=== PATIENT | female | born 1945 | race Caucasian/White ===

== ENCOUNTER 2023-05-17 16:20 | Outpatient (OUT) | payer MEDICARE, OTHER, SELFPAY ==
[2023-05-17 16:50] LABS: Anion Gap 11.4; BUN Creatinine Ratio 19.8; Carbon Dioxide 27.3 mmol/L (21.0-32.0); Chloride 107 mmol/L (98-107); Estimated GFR (African America >60 (>=60); Estimated GFR (Non-African Ame >60 (>=60); Glucose 95 mg/dL (74-106); Potassium 3.7 mmol/L (3.5-5.1); Sodium 142 mmol/L (136-145)
== END 2023-05-17 16:21 | disposition home or self-care (01) ==
PROVIDERS: PCP Internal Medicine; Visit Provider Internal Medicine
DX: M81.0 Age-related osteoporosis without current pathological fracture (principal)
CPT/HCPCS: 36415; 80048; 82306

== ENCOUNTER 2023-06-22 11:14 | Outpatient (OUT) | payer MEDICARE, OTHER, SELFPAY ==
[2023-06-22 13:02] LABS: Thyroid Stimulating Hormone 2.286 uIU/mL (0.358-3.740)
== END 2023-06-22 11:15 | disposition home or self-care (01) ==
LOC: LAB 11:17
PROVIDERS: PCP Internal Medicine; Visit Provider Internal Medicine
DX: E06.3 Autoimmune thyroiditis (principal)
CPT/HCPCS: 36415; 84443

== ENCOUNTER 2023-06-24 07:17 | Outpatient (RCR) | payer MEDICARE, OTHER, SELFPAY ==
[2023-06-24] MEDS: DENOSUMAB 60 MG/ML SYRINGE SQ (13:16)
== END 2023-06-26 23:59 | disposition home or self-care (01) ==
LOC: INF 07:17
PROVIDERS: PCP Internal Medicine; Visit Provider Internal Medicine
DX: M81.0 Age-related osteoporosis without current pathological fracture (principal)
CPT/HCPCS: 96372; J0897

== ENCOUNTER 2024-01-31 11:42 | Outpatient (OUT) | payer MEDICARE, OTHER, SELFPAY ==
[2024-01-31 13:27] LABS: Anion Gap 14.4; BUN Creatinine Ratio 32.5; Calcium 9.9 mg/dL (8.5-10.1); Chloride 108 mmol/L (98-107); Estimated GFR (African America >60 (>=60); Estimated GFR (Non-African Ame >60 (>=60); Glucose 85 mg/dL (74-106); Potassium 4.4 mmol/L (3.5-5.1); Sodium 143 mmol/L (136-145)
== END 2024-01-31 11:43 | disposition home or self-care (01) ==
LOC: LAB 11:44
PROVIDERS: PCP Internal Medicine; Visit Provider Internal Medicine
DX: M81.0 Age-related osteoporosis without current pathological fracture (principal)
CPT/HCPCS: 36415; 80048; 82306

== ENCOUNTER 2024-02-03 07:33 | Outpatient (RCR) | payer MEDICARE, OTHER, SELFPAY ==
[2024-02-03 14:45] VITALS: BP 163/68; PULSE 65; TEMP 36.4; O2SAT 96
[2024-02-03] MEDS: DENOSUMAB 60 MG/ML SYRINGE SUBQ (14:55)
--- NOTE | 2024-02-03 15:04 | PC.NURSE ---
Pt came in for Prolia injection, vitals obtained and stable. She tolerated injection well and denies any issues or concerns. She was discharged home via wheelchair.
== END 2024-02-25 23:59 | disposition home or self-care (01) ==
LOC: INF 07:33
PROVIDERS: PCP Internal Medicine; Visit Provider Internal Medicine
DX: M81.0 Age-related osteoporosis without current pathological fracture (principal)
CPT/HCPCS: 96372; J0897

== ENCOUNTER 2024-03-31 10:30 | Outpatient (OUT) | payer MEDICARE, OTHER, SELFPAY ==
--- OUTSIDE RECORDS SUMMARY | 2024-03-31 10:43 | XMS_ITS | CCD ---
Author Organization [facility] Care Team Providers Care Hand Alterations Tailor Name Role Phone LEIF, RENATA Unavailable Unavailable CHUCHO SARAVIA E Unavailable Unavailable LEIF, RENATA Unavailable Unavailable LEIF, RENATA Unavailable Unavailable CIRA BENDER Unavailable Unavailable CHUCHO SARAVIA Unavailable Unavailable Barry Valenzuela Unavailable Benigno Kennedy Unavailable DO Chucho Saravia Primary Care Provider [phone] DO Chucho Saravia Referring Provider [phone] Self, Referral Attending Provider Unavailable DO Chucho Saravia Primary Care Provider DO Chucho Saravia Referring Provider Self, Referral Attending Provider Unavailable MD Benigno Kennedy Attending Provider [phone] DO Chucho Saravia Primary Care Provider MD Barry Valenzuela Attending Provider Chucho Saravia Unavailable Radha Kennedy Unavailable REQUEST, NONE LISTED Admitting Unavaila ble REQUEST, DR LYN LISTED Attending Unavaila ble BALL, DR JACOBS Primary Care Unavailable REQUEST, DR LYN LISTED Consulting Unavaila ble BALL, DR JACOBS Admitting Unavailable BALL, DR JACOBS Attending Unavailable BALL, DR JACOBS Primary Care Unavailable BALL, DR JACOBS Consulting Unavailable BALL, DR JACOBS Admitting Unavailable BALL, DR JACOBS Attending Unavailable BALL, DR JACOBS Primary Care Unavailable BALL, DR JACOBS Consulting Unavailable BALL, DR JACOBS Admitting Unavailable BALL, DR JACOBS Attending Unavailable BALL, DR JACOBS Primary Care Unavailable BALL, DR JACOBS Consulting Unavailable BALL, DR JACOBS Admitting Unavailable BALL, DR JACOBS Attending Unavailable BALL, DR JACOBS Primary Care Unavailable BALL, DR JACOBS Consulting Unavailable BALL, DR JACOBS Primary Care Unavailable MILLER BASHIR Admitting Unavailable MILLER BASHIR Attending Unavailable DORIE MOORE Consulting Unavailable BALL, DR JACOBS Admitting Unavailable BALL, DR JACOBS Attending Unavailable BALL, DR JACOBS Primary Care Unavailable BALL, DR JACOBS Admitting Unavailable BALL, DR JACOBS Attending Unavailable BALL, DR JACOBS Primary Care Unavailable BALL, DR JACOBS Consulting Unavailable Coy Cassidy II Unavailable Olexa, Barry Unavailable DO Chucho Saravia Primary Care Provider MD Coy Cassidy II Attending Provider MD Barry Patel Attending Provider DO Chucho Saravia Primary Care Provider DO Chucho Saravia Primary Care Provider MD Barry Patel Attending Provider DO Chucho Saravia Referring Provider Self, Referral Attending Provider Unavailable DO Chucho Saravia Primary Care Provider MD Barry Patel Attending Provider DO Chucho Saravia Primary Care Provider MD Coy Cassidy II Attending Provider Olexa, Barry Admitting Unavailable Olexa, Barry Attending Unavailable Manjit, Chucho Primary Care Unavailable Olexa, Barry Admitting Unavailable Olexa, Barry Attending Unavailable Manjit, Chucho Primary Care Unavailable Olexa, Barry Admitting Unavailable Olexa, Barry Attending Unavailable Manjit, Chucho Primary Care Unavailable Olexa, Barry Admitting Unavailable Olexa, Barry Attending Unavailable Manjit, Chucho Primary Care Unavailable Olexa, Barry Admitting Unavailable Olexa, Barry Attending Unavailable Manjit, Chucho Primary Care Unavailable Ball, Chucho Primary Care Unavailable Olexa, Barry Admitting Unavailable Olexa, Barry Attending Unavailable Manjit, Chucho Primary Care Unavailable Olexa, Barry Admitting Unavailable Olexa, Barry Attending Unavailable Olexa, Barry Admitting Unavailable Olexa, Barry Attending Unavailable Manjit, Chucho Primary Care Unavailable Self, Referral Admitting Unavailable Self, Referral Attending Unavailable Manjit, Chucho Referring Unavailable Manjit, Chucho Primary Care Unavailable Olexa, Barry Attending Unavailable Olexa, Barry Admitting Unavailable Ball, Chucho Primary Care Unavailable Coy Cassidy II Attending Unavailabl e Eren HERNANDEZ, Coy Mcbride Admitting Unavailabl e Chucho Saravia Primary Care Unavailable Coy Cassidy II Admitting Unavailabl e Erne HERNANDEZCoy Attending Unavailabl e Chucho Saravia Primary Care Unavailable DO Chucho Saravia Primary Care Provider MD Coy Cassidy II Attending Provider [phone] AMISHA MUNOZ Attending Unavailable AMISHA MUNOZ Attending Unavailable ESTHER PALMER Attending Unavailable AMISHA MUNOZ Attending Unavailable Allergies Allergy Classification Reported Allergen(s) Allergy Type Date of Onset Reaction(s) Facility (20 sources) Silk adhesive tape Propensity to adverse reactions rash [facility] Other (20 sources) Adhesive Tape; Translations: [Adhesive tape] Allergy to substance 1 Rash;blisterin g [facility] (10 sources) Adhesive Tape Drug allergy Unknown [facility] Other (19 sources) zoledronic acid Drug Allergy 4 Unknown, Unknown Reaction [facility] (3 sources) Allergies Reconciled Propensity to adverse reactions Unknown [facility] Other (3 sources) patient allergy list reviewed by nurse or physicia Propensity to adverse reactions 3 Comment:Done [facility] Other (10 sources) Mannitol Drug Allergy 4 Unknown Reaction [facility] (1 source) zoledronic acid Drug Allergy 4 [facility] (10 sources) water for injection,steri le Drug allergy (disorder) 4 Unknown Reaction [facility] Medications Current Medications Medication Drug Class(es) Dates Sig (Normalized) Sig (Original) acetaminophen 325 mg / oxyCODONE hydrochloride 5 mg oral tablet (20 sources) Opioid Agonist Start: 02-23-2023 take 1 tablet by mouth every four hours as needed for pain Percocet 5-325 MG 1 tablet as needed for pain Orally up to every 4 hrs for 5 days GABE: [id number] January, Active Start: 05-27-2021 take 1 tablet by raven th twice daily as needed oxyCODONE-Acetaminophen 5-325 MG 1 table t as needed Orally twice daily as needed for 30 days Apr, Not-Taking Start: 05-27-2021 Start: 04-09-2020 End: 10-28-2020 take 1 tablet by mouth every four to six hours Oxycodone-Acetaminophen (Percocet) 5-325 mg tablet Discontinued 1 TAB PO EVERY 4-6 HOURS 14 April 09, 2020 October 28, 2020 9:35am Start: 01-17-2019 End: 07-17-2019 take 1 tablet by mouth every six hours Oxycodone-Acetaminophen Discontinued 1 TAB PO Q6H 28 January 17, 2019 July 17, 2019 3:12pm Start: 01-06-2019 End: 01-13-2019 take 1 tablet by mouth every six hours Oxycodone-Acetaminophen (Percocet) 5-325 mg tablet Discontinued 1 TAB PO Q6H 23 04January 06, 2019 January 13, 2019 12:02am Start: 08-03-2018 End: 10-20-2018 take 1 tablet by mouth every six hours Oxycodone-Acetaminophen Discontinued 1 - 2 TAB PO Q6H August 03, 2018 1:00am October 20, 2018 9:44am Start: 07-10-2018 End: 07-13-2018 take 1 tablet by mouth every six hours Oxycodone-Acetaminophen (Percocet) 5-325 mg tablet Discontinued 1 TAB PO Q6H 12 July 10, 2018 July 13, 2018 12:02am Start: 06-07-2018 End: 07-10-2018 take 1 tablet by mouth every four to six hours as needed for pain, then take 2 tablets by mouth every four to six hours as needed for pain Oxycodone-Acetaminophen (Percocet) 5-325 mg tablet Discontinued 1 TAB PO EVERY 4-6 HOURS June 07, 2018 July 10, 2018 9:37am 1 OR 2 TABS PO Q 4 TO 6 HRS PRN PAIN Start: 06-25-2017 End: 04-07-2018 Oxycodone-Acetaminophen Disc ontinued TABLET June 25, 2017 12:00am April 07, 2018 11:40pm [id number] 200 actuat albuterol 0.09 mg/actuat metered dose inhaler (20 sources) beta2-Adrenergic Agonist Start: 12-13-2023 take 1 puff(s) by inhalation every four hours Albuterol Sulfate Active 2 PUFF INHALATION Every 4 hours December 13, 2023 12:00am Start: 02-16-2023 take 2 puff(s) by in halation every four hours as needed for cough Albuterol Sulfate HFA 108 (90 Base) MCG/ACT 2 puffs Inhalation every 4 hrs, as needed for cough, SOB for 30 days January, Active Start: 02-16-2023 take 2 puff(s) by in halation every four hours as needed for cough Albuterol Sulfate HFA 108 (90 Base) MCG/ACT 2 puffs Inhalation every 4 hrs, as needed for cough, SOB for 30 days January, Active Start: 02-16-2023 take 2 puff(s) by in halation every four hours as needed for cough Albuterol Sulfate HFA 108 (90 Base) MCG/ACT 2 puffs Inhalation every 4 hrs, as needed for cough, SOB for 30 days January, Active Start: 02-16-2023 Start: 11-20-2022 End: 11-16-2023 take 2.5 mg by inhalation every six hours Albuterol Sulfate Discontinued 2.5 MG INHALATION Every 6 hours November 11, 2023 1:00am November 11, 2023 2:42pm Start: 11-20-2022 Albuterol Sulf ate (2.5 MG/3ML) 0.083% 3 mL as needed Inhalation every 6 hrs Oct, Active Start: 11-20-2022 Start: 04-07-2018 End: 05-25-2018 Albuterol Sulfate (Proair Hf a) 90 mcg/actuation Hfa Aerosol Inhaler Discontinued 2 UNIT INHALATION Daily April 07, 2018 12:00am May 25, 2018 11:35am 2 unit inhaled ALPRAZolam 0.5 mg oral tablet (20 sources) Benzodiazepine Start: 12-09-2023 take 0.5 tablet by mouth twice daily in the morning, then take 1 tablet by mouth once at bedtime Alprazolam Active 0.5 MG PO Twice daily December 09, 2023 1:08pm 1/2 tab PO q AM and 1 tab PO q HS Start: 08-11-2023 ALPRAZolam 0.5 MG TAKE 1/2 (ONE-HALF) TABLET BY MOUTH ONCE DAILY AND 1 TAB AT BEDTIME FOR 30 DAYS for 30 Jul, Active Start: 03-05-2021 End: 02-12-2023 Alprazolam Discontinued TABL ET March 05, 2021 12:00am February 12, 2023 10:13am Start: 02-19-2021 End: 02-12-2023 take 0.5 mg by mouth once daily at bedtime Alprazolam Discontinued 0.5 MG PO Daily at bedtime February 19, 2021 12:00am February 12, 2023 10:13am Start: 04-07-2018 End: 12-09-2023 take 0.25 mg by mouth twice daily at bedtime Alprazolam Discontinued 0.25 MG PO Twice daily November 09, 2023 2:16pm December 09, 2023 1:10pm 1pm and HS Start: 06-25-2017 End: 10-28-2020 take 0.25 mg by mouth once daily Alprazolam Discontinued 0.25 MG PO Daily July 17, 2019 12:00am October 28, 2020 9:32am cephalexin 500 mg oral capsule (20 sources) Cephalosporin Antibacterial Start: 02-23-2023 take 1 capsule by mouth every eight hours Cephalexin 500 MG 1 capsule Orally every 8 hrs for 2 days January, Active Start: 03-07-2021 End: 02-12-2023 take 500 mg by mouth three times daily Cephalexin Discontinued 500 MG PO Three times daily March 07, 2021 12:00am February 12, 2023 10:18am Start: 11-12-2020 End: 02-19-2021 take 500 mg by mouth three times daily Cephalexin Discontinued 500 MG PO Three times daily November 12, 2020 1:00am February 19, 2021 4:23pm Start: 01-06-2019 End: 01-11-2019 take 500 mg by mouth every eight hours Cephalexin Discontinued 500 MG PO Q8H 08 02January 06, 2019 12:00am January 11, 2019 12:05am 1 ml denosumab 60 mg/ml prefilled syringe (20 sources) RANK Ligand Inhibitor Start: 10-28-2020 End: 02-01-2024 Denosumab (Prolia) 60 mg/mL syringe Active 60 MG SUBCUT EVERY 6 MONTHS February 01, 2024 4:59pm doxycycline hyclate 100 mg oral capsule (3 sources) Tetracycline-cla ss Drug Start: 10-04-2023 take 1 capsule by mouth twice daily Doxycycline Hyclate 100 MG 1 capsule Orally twice daily for 7 days Sep, Active levothyroxine sodium 0.15 mg oral tablet (20 sources) l-Thyroxine Start: 12-13-2023 take 150 ug by mouth once daily Levothyroxine Active 150 MCG PO Daily December 13, 2023 12:00am Start: 06-25-2017 End: 12-13-2023 take 150 ug by mouth once daily Levothyroxine Disconti nued 150 MCG PO Daily June 25, 2017 12:00am December 13, 2023 10:14am Start: 06-25-2017 take 175 ug by mouth once emily y Levothyroxine Active 175 MCG PO Daily June 25, 2017 12:00am take 1 tablet by raven once daily Levothyroxine Sodium 150 MCG Take 1 tablet by mouth once daily Active take 1 tablet by raven once daily Levothyroxine Sodium 150 MCG Take 1 tablet by mouth once daily [facility] Levothyroxine Sodium 175 MCG 1 tablet in the morning on an empty stomach Orally Once a day Active methylPREDNISolone 4 mg oral tablet (2 sources) Corticosteroid Start: 11-03-2023 methylPREDNISolone 4 MG as directed Orally for 6 days Oct, Active mupirocin 0.02 mg/mg topical ointment (1 source) RNA Synthetase Inhibitor Antibacterial Start: 03-31-2024 Mupirocin Active 1 APPLIC TOPICAL Twice daily 18 07March 31, 2024 12:00am niacin 50 mg oral tablet (18 sources) Nicotinic Acid Start: 12-13-2023 take 100 mg by mouth twice daily Niacin Active 100 MG PO Twice daily December 13, 2023 12:00am Start: 04-29-2023 take 2 tablets by [facility] every twelve hours Niacin 50 MG 2 tablets Orally Twice a day for 30 days Apr, Not-Taking/PRN potassium chloride 20 meq powder for oral solution (20 sources) Start: 06-03-2017 take 20 mEq by mouth once daily Potassium Chloride (Klor-Con) 20 mEq Packet Active 20 MEQ PO Daily June 03, 2017 12:00am take 1 tablet by mouth once emily y Potassium Chloride ER 20 MEQ Take 1 tablet by mouth once daily Active predniSONE 20 mg oral tablet (20 sources) Start: 12-13-2023 Prednisone Act arlet 20 MG PO As Directed 09 01January 14, 2024 12:00am 1 tab tid w/ food x 2 days, then bid w/ food x 2 days, then qd w/ food x 2 days Start: 10-04-2023 predniSONE 20 MG 1 tablet Orally bid w/ food x 3 days then qd w/ food x 2 days for 5 days Sep, Active Start: 08-14-2021 predniSONE 10 MG 3 tablets a day for 3 days, 2 tablets a day for 3 days, 1 tablets a day for 3 days Orally Once a day for 9 day(s) Jul, Active Start: 03-07-2021 End: 02-12-2023 Prednisone Discontinued 1 do se pk PO per package directions March 06, 2021 11:00pm February 12, 2023 9:28am take 4 tabs for 3 days then take 3 tabs for 3 days then take 2 tabs for 3 days then take 1 tab for 3 days Start: 03-07-2021 End: 02-12-2023 Prednisone Discontinued 1 do se pk PO per package directions March 07, 2021 12:00am February 12, 2023 10:28am take 4 tabs for 3 days then take 3 tabs for 3 days then take 2 tabs for 3 days then take 1 tab for 3 days Start: 03-07-2021 Prednisone Act arlet 1 dose pk PO per package directions March 06, 2021 11:00pm take 4 tabs for 3 days then take 3 tabs for 3 days then take 2 tabs for 3 days then take 1 tab for 3 days Start: 03-07-2021 Prednisone Act arlet 1 dose pk PO per package directions March 07, 2021 12:00am take 4 tabs for 3 days then take 3 tabs for 3 days then take 2 tabs for 3 days then take 1 tab for 3 days Start: 11-12-2020 End: 02-19-2021 Prednisone Discontinued 1 do se pk PO per package directions November 12, 2020 12:00am February 19, 2021 3:20pm take 4 tabs for 3 days then take 3 tabs for 3 days then take 2 tabs for 3 days then take 1 tab for 3 days Start: 11-12-2020 End: 02-19-2021 Prednisone Discontinued 1 do se pk PO per package directions November 12, 2020 1:00am February 19, 2021 4:20pm take 4 tabs for 3 days then take 3 tabs for 3 days then take 2 tabs for 3 days then take 1 tab for 3 days torsemide 20 mg oral tablet (1 source) Loop Diuretic Start: 03-31-2024 take 20 mg by mouth once daily Torsemide Active 20 MG PO Daily March 31, 2024 12:00am traMADol hydrochloride 50 mg oral tablet (20 sources) Opioid Agonist Start: 04-12-2023 take 1 tablet by mouth every four hours as needed for pain traMADol HCl 50 MG 1 tablet as needed for severe pain Orally up to every 4 hrs for 5 days GABE: [id number] Mar, Active Start: 03-21-2018 End: 04-07-2018 take 1 tablet by mouth every six hours Tramadol Discontinued 1 TAB PO Every 6 hours March 21, 2018 12:00am April 07, 2018 11:40pm traZODone (20 sources) Serotonin Reuptake Inhibitor Start: 12-09-2023 take 2 tablets by mouth once daily at bedtime Trazodone Active 0 .ROUTE .COMPLEX 180 December 09, 2023 1:09pm TAKE 2 TABLETS BY MOUTH ONCE DAILY AT BEDTIME Start: 06-25-2017 End: 12-09-2023 take 150 mg by mouth once daily at bedtime Trazodone Discontinued 100 MG PO Daily at bedtime June 25, 2017 12:00am December 09, 2023 1:10pm May take up to 150 mg if needed take 2 tablets by mo uth once daily at bedtime traZODone HCl 50 MG TAKE 2 TABLETS BY MOUTH ONCE DAILY AT BEDTIME for 90 Active triamcinolone acetonide 1 mg/ml topical cream (20 sources) Corticosteroid Start: 03-31-2024 Triamcinolone Acetonide Active 1 APPLIC TOPICAL Twice daily 80 March 31, 2024 12:00am Start: 12-14-2022 Kenalog-40 Jun, 40 mg Start: 12-14-2022 Start: 07-15-2018 Start: 07-15-2018 Kenalog -40 mg Jun, 40 mg Start: 01-06-2018 Start: 01-06-2018 Kenalog -40 mg Dec, 40 mg Start: 08-03-2017 Start: 08-03-2017 Kenalog -40 mg Jul, Completed/Discontinued Medications Medication Drug Class(es) Dates Sig (Normalized) Sig (Original) acetaminophen 325 mg / HYDROcodone bitartrate 5 mg oral tablet (20 sources) Opioid Agonist Start: 11-25-2023 End: 03-13-2024 take 1 tablet by mouth twice daily Hydrocodone-Acetami nophen Discontinued 1 TAB PO Twice daily 60 30 February 10, 2024 March 13, 2024 11:13am Start: 07-06-2023 take 1 tablet by raven th twice daily as needed HYDROcodone-Acetaminophen 5-325 MG 1 tablet as needed Orally up to twice a day for 30 days Jun, Active Start: 08-04-2022 take 1 tablet by raven th twice daily as needed HYDROcodone-Acetaminophen 5-325 MG 1 tablet as needed Orally up to twice a day for 30 days Jul, Active Start: 09-02-2021 take 1 tablet by rvaen th twice daily as needed HYDROcodone-Acetaminophen 5-325 MG 1 tablet as needed Orally up to twice a day for 30 days Aug, Active Start: 08-14-2021 End: 12-13-2023 take 1 tablet by mouth every six hours Hydrocodone-Acetaminophen Discontinued 1 TAB PO Q6H February 12, 2023 12:00am December 13, 2023 10:14am Start: 08-14-2021 take 1 tablet by raven th every six hours Start: 10-28-2020 End: 11-12-2020 take 1 tablet by mouth twice daily Hydrocodone-Acetaminophen Discontinued 1 TAB PO Twice daily October 28, 2020 1:00am November 12, 2020 1:35pm Start: 10-20-2018 End: 10-27-2018 take 2 tablets by mouth every six hours Hydrocodone-Acetaminophen Discontinued 2 TAB PO Q6H 28 October 20, 2018 October 27, 2018 1:02am Start: 04-08-2018 End: 05-25-2018 take 1 tablet by mouth every four to six hours Hydrocodone-Acetaminophen ([place]) 5-325 mg Tablet Discontinued 1 TAB PO EVERY 4-6 HOURS April 08, 2018 May 25, 2018 11:35am albuterol 0.833 mg/ml / ipratropium bromide 0.167 mg/ml inhalation solution (20 sources) Anticholinergic, beta2-Adrenergic Agonist Start: 02-19-2021 End: 02-19-2021 Ipratropium-Albuterol Discontinued ML INHALATION February 19, 2021 12:00am February 19, 2021 4:24pm Start: 06-25-2017 End: 02-12-2023 take 0.5 mg by inhalation every four hours Ipratropium-Albuterol Discontinued 0.5 MG INHALATION Q4H June 25, 2017 12:00am February 12, 2023 10:30am Start: 06-25-2017 take 0.5 mg by inhal ation four times daily Ipratropium-Albuterol Active 0.5 MG INHALATION Four times daily June 25, 2017 12:00am Albuterol Sulfate (Proair Hfa) 90 mcg/actuation Hfa Aerosol Inhaler (20 sources) Start: 03-21-2018 End: 02-19-2021 take 1 puff(s) by inhalation every four to six hours Albuterol Sulfate (Proair Hfa) 90 mcg/actuation Hfa Aerosol Inhaler Discontinued 2 PUFF INHALATION EVERY 4-6 HOURS March 20, 2018 11:00pm February 19, 2021 3:15pm Start: 03-21-2018 End: 02-19-2021 take 1 puff(s) by inhalation every four to six hours Albuterol Sulfate (Proair Hfa) 90 mcg/actuation Hfa Aerosol Inhaler Discontinued 2 PUFF INHALATION EVERY 4-6 HOURS March 21, 2018 12:00am February 19, 2021 4:15pm alendronic acid 70 mg oral tablet (20 sources) Bisphosphonate Start: 03-21-2018 End: 10-28-2020 take 70 mg by mouth every week Alendronate Discontinued 70 MG PO every week March 21, 2018 12:00am October 28, 2020 9:31am Takes on Wednesday allopurinol 100 mg oral tablet (20 sources) Xanthine Oxidase Inhibitor Start: 03-21-2018 End: 04-07-2018 Allopurinol Discontinued TABLET March 21, 2018 12:00am April 07, 2018 11:40pm ascorbic acid 500 mg oral tablet (20 sources) Vitamin C Start: 10-28-2020 End: 02-19-2021 take 1 tablet by mouth once daily Ascorbic Acid (Vitamin C) (Vitamin C) 500 mg Tablet Discontinued 500 MG PO Daily October 28, 2020 1:00am February 19, 2021 4:22pm unsure of dose azithromycin 250 mg oral tablet (14 sources) Macrolide Antimicrobial Start: 12-13-2023 End: 03-31-2024 Azithromycin Discontinued 250 MG PO As Directed 03 01December 13, 2023 12:00am March 31, 2024 10:01am Start: 02-26-2023 Azithromycin 2 50 MG as directed Orally daily for 5 days Feb, Active B-12 - up to 1000 mcg (20 sources) Start: 10-04-2023 B-12 - up to 1 000 mcg Sep, 1 mL Start: 07-20-2023 B-12 - up to 1 000 mcg Jun, 1000 mcg Start: 02-18-2023 Start: 02-18-2023 B-12 - up to 1 000 mcg January, 1000 mcg Start: 01-18-2023 Start: 01-18-2023 B-12 - up to 1 000 mcg Dec, 1000 mcg Start: 11-17-2022 Start: 11-17-2022 B-12 - up to 1 000 mcg Oct, 1000 mcg budesonide 0.25 mg/ml inhalation suspension (20 sources) Corticosteroid Start: 10-20-2018 End: 10-20-2018 Budesonide (Pulmicort) 0.5 mg/2 mL Suspension For Nebulization Discontinued October 20, 2018 1:00am October 20, 2018 9:46am 120 actuat budesonide 0.16 mg/actuat / formoterol fumarate 0.0045 mg/actuat metered dose inhaler (20 sources) Corticosteroid, beta2-Adrenergic Agonist Start: 02-19-2021 End: 02-12-2023 take 1 puff(s) by inhalation twice daily Budesonide-Formot rae (Symbicort) 160-4.5 mcg/actuation Hfa Aerosol Inhaler Discontinued 1 PUFF INHALATION Twice daily February 19, 2021 12:00am February 12, 2023 10:26am Start: 07-10-2018 End: 02-19-2021 take 1 puff(s) by inhalation twice daily Budesonide-Formoterol Discontinued 2 PUFF INHALATION Twice daily July 09, 2018 11:00pm February 19, 2021 3:23pm Start: 07-10-2018 End: 02-19-2021 take 1 puff(s) by inhalation twice daily Budesonide-Formoterol Discontinued 2 PUFF INHALATION Twice daily July 10, 2018 12:00am February 19, 2021 4:23pm Start: 06-25-2017 End: 01-06-2019 Budesonide-Formoterol (Symbi ottoniel) 160-4.5 mcg/actuation HFA aerosol inhaler Discontinued March 21, 2018 12:00am March 21, 2018 9:19am calcium carbonate 1000 mg chewable tablet (20 sources) Start: 02-19-2021 End: 12-13-2023 take 2000 mg by mouth once daily Calcium Carbonate Discontinued 2000 MG PO Daily February 19, 2021 12:00am December 13, 2023 10:13am calcium carbonate 1500 mg / cholecalciferol 0.01 mg oral tablet (20 sources) Vitamin D Start: 05-25-2018 End: 02-19-2021 take 1 tablet by mouth once daily Calcium Carbonate-Vitami n D3 (Calcium 600 + D(3)) 600 mg(1,500mg) -400 unit Tablet Discontinued 1 TAB PO Daily May 25, 2018 12:00am February 19, 2021 4:23pm cefepime 2000 mg injection (20 sources) Cephalosporin Antibacterial Start: 02-07-2019 End: 07-17-2019 take 2 g intravenously every twelve hours Cefepime Discontinued 2 GM IV Q12H February 07, 2019 12:00am July 17, 2019 3:12pm cefuroxime 500 mg oral tablet (8 sources) Cephalosporin Antibacterial Start: 01-13-2024 End: 03-31-2024 take 500 mg by mouth twice daily Cefuroxime Axetil Discontinued 500 MG PO Twice daily 07 01January 13, 2024 12:00am March 31, 2024 10:01am Start: 03-02-2023 take 1 tablet by raven th every twelve hours Cefuroxime Axetil 250 MG 1 tablet Orally every 12 hrs for 5 days Feb, Active cholecalciferol 0.025 mg oral tablet (20 sources) Vitamin D Start: 02-19-2021 End: 12-13-2023 take 1 tablet by mouth once daily Cholecalciferol (Vitamin D3) (Vitamin D3) 25 mcg (1,000 unit) Tablet Discontinued 25 MCG PO Daily February 19, 2021 12:00am December 13, 2023 10:13am Start: 10-28-2020 End: 02-19-2021 take 1 capsule by mouth once daily Cholecalciferol (Vitamin D3) (Vitamin D3) 25 mcg (1,000 unit) Capsule Discontinued 100 MCG PO Daily October 28, 2020 1:00am February 19, 2021 4:19pm Start: 05-25-2018 End: 10-28-2020 take 4 capsules by mouth once daily Cholecalciferol (Vitamin D3) (Vitamin D3) 1,000 unit Capsule Discontinued 4000 UNIT PO Daily May 25, 2018 12:00am October 28, 2020 9:33am cyclobenzaprine hydrochloride 10 mg oral tablet (20 sources) Muscle Relaxant Start: 03-07-2021 End: 02-12-2023 take 10 mg by mouth three times daily Cyclobenzaprine Discontinued 10 MG PO Three times daily 50 March 07, 2021 12:00am February 12, 2023 10:26am Start: 11-12-2020 End: 02-19-2021 take 10 mg by mouth three times daily Cyclobenzaprine Discontinued 10 MG PO Three times daily 40 November 12, 2020 1:00am February 19, 2021 4:23pm Cyclosporine (Restasis) 0.05 % Dropperette (15 sources) Start: 02-12-2023 End: 12-13-2023 Cyclosporine (Restasis) 0.05 % Dropperette Discontinued 1 DROPS OPHTHALMIC As Directed February 12, 2023 12:00am December 13, 2023 10:13am Start: 02-12-2023 Cyclosporine ( Restasis) 0.05 % Dropperette Active 1 DROPS OPHTHALMIC As Directed February 11, 2023 11:00pm Start: 02-12-2023 Cyclosporine ( Restasis) 0.05 % Dropperette Active 1 DROPS OPHTHALMIC As Directed February 12, 2023 12:00am diclofenac sodium 25 mg delayed release oral tablet (20 sources) Nonsteroidal Anti-inflammatory Drug Start: 12-21-2023 take 75 mg by mouth twice daily Diclofenac Sodium Active 75 MG PO Twice daily 180 90 December 21, 2023 12:00am Start: 02-12-2023 End: 12-21-2023 take 75 mg by mouth twice daily at mealtime Diclofenac Sodium Discontinued 75 MG PO Twice daily with meals 180 90 December 21, 2023 11:15am December 21, 2023 11:28am Start: 03-07-2021 End: 02-12-2023 take 50 mg by mouth twice daily at mealtime Diclofenac Sodium Discontinued 50 MG PO Twice daily with meals 60 March 07, 2021 12:00am February 12, 2023 10:22am Start: 05-25-2018 End: 03-07-2021 Diclofenac Sodium Discontinu ed 75 MG PO Twice daily May 25, 2018 12:00am March 07, 2021 8:48am Instructed to stop 5-7 days preop take 1 tablet by raven th every twelve hours Diclofenac Sodium 75 MG 1 tablet Orally Twice a day for 90 days Active docusate sodium 100 mg oral capsule (20 sources) Start: 05-25-2018 End: 12-13-2023 take 1 capsule by mouth once daily Docusate Sodium (Stool Softener) 100 mg Capsule Discontinued 100 MG PO Daily May 25, 2018 12:00am December 13, 2023 10:14am DULoxetine 60 mg delayed release oral capsule (20 sources) Serotonin and Norepinephrine Reuptake Inhibitor Start: 03-21-2018 End: 02-12-2023 take 60 mg by mouth once daily in the morning Duloxetine Discontinued 60 MG PO Every morning April 07, 2018 12:00am February 12, 2023 10:25am Echinacea Purpurea Extract (20 sources) Start: 10-28-2020 End: 02-19-2021 take 1 tablet by mouth once daily Echinacea Purpurea Extract (Echinacea) 125 mg Tablet Discontinued 125 MG PO Daily October 28, 2020 12:00am February 19, 2021 3:23pm unsure of dose Start: 10-28-2020 End: 02-19-2021 take 1 tablet by mouth once daily Echinacea Purpurea Extract (Echinacea) 125 mg Tablet Discontinued 125 MG PO Daily October 28, 2020 1:00am February 19, 2021 4:23pm unsure of dose Start: 10-11-2018 End: 07-17-2019 Echinacea Purpurea Extract (Echinacea) 125 mg Tablet Discontinued MG PO October 11, 2018 12:00am July 17, 2019 2:11pm Start: 10-11-2018 End: 07-17-2019 Echinacea Purpurea Extract (Echinacea) 125 mg Tablet Discontinued MG PO October 11, 2018 1:00am July 17, 2019 3:11pm Fluticasone Propion-Salmeterol (20 sources) Corticosteroid, beta2-Adrenergic Agonist Start: 11-17-2023 End: 12-13-2023 take 1 puff(s) by mouth twice daily Fluticasone Propion-Salmeterol Discontinued 0 .ROUTE .COMPLEX 60 November 17, 2023 9:26am December 13, 2023 10:14am INHALE 1 PUFF BY MOUTH TWICE DAILY Start: 11-17-2023 take 1 puff(s) by mo uth twice daily Fluticasone Propion-Salmeterol Active 0 .ROUTE .COMPLEX 60 November 17, 2023 9:26am INHALE 1 PUFF BY MOUTH TWICE DAILY Start: 02-12-2023 End: 11-17-2023 Fluticasone Propion-Salmeter ol Discontinued 1 INH INHALATION Daily February 12, 2023 12:00am November 17, 2023 9:26am Start: 02-12-2023 Fluticasone Pr opion-Salmeterol Active 1 INH INHALATION Daily February 11, 2023 11:00pm Start: 02-12-2023 Fluticasone Pr opion-Salmeterol Active 1 INH INHALATION Daily February 12, 2023 12:00am Start: 10-22-2022 take 1 puff(s) by in halation twice daily Wixela Inhub 250-50 MCG/ACT 1 puff Inhalation Twice a day Sep, Active Start: 10-22-2022 furosemide 20 mg oral tablet (20 sources) Loop Diuretic Start: 12-09-2023 End: 03-31-2024 take 1 tablet by mouth every other day Furosemide Discontinued 0 .ROUTE .COMPLEX 45 December 09, 2023 1:09pm March 31, 2024 10:01am TAKE 1 TABLET BY MOUTH EVERY OTHER DAY Start: 03-21-2018 End: 12-09-2023 take 20 mg by mouth once Furosemide Discontinued 20 M G PO every Wednesday, Wednesday, and Wednesday March 21, 2018 12:00am December 09, 2023 1:10pm 20 mg orally mwf take 1 tablet by raven th every other day Furosemide 20 MG TAKE 1 TABLET BY MOUTH EVERY OTHER DAY Oral Active gabapentin 300 mg oral capsule (20 sources) Anti-epileptic Agent Start: 03-07-2021 End: 02-12-2023 take 900 mg by mouth twice daily Gabapentin Discontinued 900 MG PO Twice daily 60 March 07, 2021 12:00am February 12, 2023 10:27am Start: 02-19-2021 End: 03-07-2021 take 600 mg by mouth twice daily Gabapentin Discontinued 600 MG PO Twice daily February 19, 2021 12:00am March 07, 2021 8:48am Start: 06-25-2017 End: 04-07-2018 Gabapentin Discontinued May 12:00am April 07, 2018 11:40pm glucosamine sulfate 500 mg oral tablet (20 sources) Start: 02-19-2021 End: 02-12-2023 take 2 tablets by mouth once daily Glucosamine Sulfate (Glucosamine) 500 mg Tablet Discontinued 1000 MG PO Daily February 19, 2021 12:00am February 12, 2023 10:27am ipratropium bromide 0.2 mg/ml inhalation solution (20 sources) Anticholinergic Start: 02-12-2023 End: 12-13-2023 take 1 mL by inhalation every four hours Ipratropium [place] Discontinued 3 ML INHALATION Q4H February 12, 2023 12:00am December 13, 2023 10:14am Start: 11-20-2022 take 2.5 mL by inhal ation every six hours Ipratropium [place] 0.02 % 2.5 mL Inhalation every 6 hrs Oct, Active Start: 11-20-2022 Lidocaine (20 sources) Antiarrhythmic, Amide Local Anesthetic Start: 12-14-2022 Start: 12-14-2022 Lidocaine 20 M , 2022 20 mg metroNIDAZOLE 500 mg oral tablet (20 sources) Nitroimidazole Antimicrobial Start: 01-06-2019 End: 01-11-2019 take 500 mg by mouth every eight hours Metronidazole Discontinued 500 MG PO Q8H 15 5 January 06, 2019 12:00am January 11, 2019 12:05am montelukast 10 mg oral tablet (20 sources) Leukotriene Receptor Antagonist Start: 03-21-2018 End: 02-12-2023 take 10 mg by mouth once daily Montelukast Discontinued 10 MG PO Daily July 17, 2019 3:10pm February 12, 2023 10:27am Multivitamin (Multiple Vitamins) Tablet (20 sources) Start: 05-25-2018 End: 12-13-2023 take 1 tablet by mouth once daily Multivitamin (Multiple Vitamins) Tablet Discontinued 1 TAB PO Daily May 25, 2018 12:00am December 13, 2023 10:15am Start: 05-25-2018 take 1 tablet by raven th once daily Multivitamin (Multiple Vitamins) Tablet Active 1 TAB PO Daily May 24, 2018 11:00pm Start: 05-25-2018 End: 05-25-2018 take 1 tablet by mouth once daily Multivitamin (Multiple Vitamins) Tablet Discontinued 1 TAB PO Daily May 24, 2018 11:00pm May 25, 2018 1:36pm Start: 05-25-2018 take 1 tablet by raven th once daily Multivitamin (Multiple Vitamins) Tablet Active 1 TAB PO Daily May 25, 2018 12:00am Start: 05-25-2018 End: 05-25-2018 take 1 tablet by mouth once daily Multivitamin (Multiple Vitamins) Tablet Discontinued 1 TAB PO Daily May 25, 2018 12:00am May 25, 2018 2:36pm naproxen sodium 220 mg oral capsule (20 sources) Nonsteroidal Anti-inflammatory Drug Start: 06-03-2017 End: 04-07-2018 take 1 capsule by mouth every twelve hours Naproxen Sodium (Aleve) 220 mg Capsule Discontinued 220 MG PO Q12H June 03, 2017 12:00am April 07, 2018 11:40pm oxyCODONE hydrochloride 5 mg oral capsule (20 sources) Opioid Agonist Start: 03-07-2021 End: 02-12-2023 take 5-10 mg by mouth every six hours Oxycodone Discontinued 5 - 10 MG PO Q6H 50 8 March 07, 2021 February 12, 2023 10:28am Start: 11-12-2020 End: 02-19-2021 take 5-10 mg by mouth every six hours Oxycodone Discontinued 5 - 10 MG PO Q6H 40 8 November 12, 2020 February 19, 2021 4:20pm pregabalin 150 mg oral capsule (20 sources) Start: 08-25-2021 take 1 capsule by mouth every twelve hours Lyrica 150 MG 1 capsule Orally bid for 30 days Jul, Not-Taking Start: 07-24-2021 take 1 capsule by mo [facility] every twelve hours Lyrica 150 MG 1 capsule Orally bid for 30 days Jun, Active Start: 05-27-2021 take 1 capsule by mo [facility] every twelve hours Lyrica 75 MG 1 capsule Orally Twice a day for 30 days Apr, Active vitamin b12 1 mg/ml injectable solution (15 sources) Vitamin B12 Start: 02-12-2023 End: 12-13-2023 inject 1000 ug by intramuscular injection twice daily Cyanocobalamin (Vitamin B-12) (Vitamin B-12) 1,000 mcg/mL Solution Discontinued 1000 MCG IM 2 times daily February 12, 2023 12:00am December 13, 2023 10:13am dosage not clarified Zinc (20 sources) Start: 10-28-2020 End: 02-19-2021 take 50 mg by mouth once daily Zinc Discontinued 50 MG PO Daily October 28, 2020 12:00am February 19, 2021 3:20pm Start: 10-28-2020 End: 02-19-2021 take 50 mg by mouth once daily Zinc Discontinued 50 MG PO Daily October 28, 2020 1:00am February 19, 2021 4:20pm Start: 10-11-2018 End: 07-17-2019 take 50 mg by mouth once daily Zinc Discontinued 50 MG PO Daily October 11, 2018 12:00am July 17, 2019 2:12pm Start: 10-11-2018 End: 07-17-2019 take 50 mg by mouth once daily Zinc Discontinued 50 MG PO Daily October 11, 2018 1:00am July 17, 2019 3:12pm 100 ml zoledronic acid 0.05 mg/ml injection (20 sources) Bisphosphonate Start: 07-17-2019 End: 10-28-2020 take 5 mg intravenously once Zoledronic Snib-Cyafrxlf-Ydmng (Reclast) 5 mg/100 mL Piggyback Discontinued 5 MG IV Once July 17, 2019 12:00am October 28, 2020 9:36am Problems Active Problems Problem Classification Problem Date Documented Da te Episodic/Chronic Acute bronchitis (16 sources) Acute bronchitis due to other specified organisms; Translations: [Acute bronchitis] Episodic Anxiety disorders (20 sources) Generalized anxiety disorder; Translations: [Generalized anxiety disorder] Chronic Asthma (3 sources) Uncomplicated severe persistent asthma; Translations: [Severe persistent asthma, uncomplicated] Chronic Chronic obstructive pulmonary disease and bronchiectasis (20 sources) Mucopurulent chronic bronchitis; Translations: [Mucopurulent chronic bronchitis] Onset: 10-05-2016 Chronic Chronic obstructive pulmonary disease and bronchiectasis (1 source) Chronic obstructive pulmonary disease and bronchiectasis Onset: 06-06-2018 Complications of surgical procedures or medical care (20 sources) Non-healing surgical wound; Translations: [Other complications of procedures, not elsewhere classified, initial encounter] 12-06-2018 Episodic Deficiency and other anemia (20 sources) Pernicious anemia; Translations: [Vitamin B12 deficiency anemia due to intrinsic factor deficiency] 12-13-2023 Episodic Deficiency and other anemia (1 source) Vitamin B12 deficiency anemia due to intrinsic factor deficiency Episodic Diabetes mellitus without complication (3 sources) Type 2 diabetes mellitus without complication; Translations: [Diabetes mellitus without mention of complication, type II or unspecified type, not stated as uncontrolled] Chronic Disorders of lipid metabolism (6 sources) Pure hypercholesterolemia ; Translations: [Pure hypercholesterolemia , unspecified] Onset: 11-12-2015 Chronic Essential hypertension (9 sources) Benign essential hypertension; Translations: [Essential hypertension, benign] Onset: 08-01-2014 Chronic Fluid and electrolyte disorders (3 sources) Hypokalemia; Translations: [Hypokalemia] Episodic Fracture of lower limb (20 sources) Closed fracture of femur; Translations: [Unspecified fracture of right femur, initial encounter for closed fracture] Onset: 04-09-2020 04-09-2020 Episodic Fracture of neck of femur (hip) (20 sources) Closed fracture of hip; Translations: [Fracture of unspecified part of neck of right femur, initial encounter for closed fracture] Onset: 09-09-2016 Episodic Infective arthritis and osteomyelitis (except that caused by tuberculosis or sexually transmitted disease) (20 sources) Osteomyelitis of sacrum; Translations: [Osteomyelitis of vertebra, sacral and sacrococcygeal region] 01-10-2019 Chronic Joint disorders and dislocations; trauma-related (3 sources) 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; Translations: [Traumatic arthropathy, right hip] Onset: 11-26-2016 Chronic Menopausal disorders (3 sources) Primary ovarian failure; Translations: [Other primary ovarian failure] Onset: 01-25-2018 Chronic Miscellaneous mental health disorders (3 sources) Primary insomnia; Translations: [Primary insomnia] Chronic Mood disorders (20 sources) Recurrent major depression in full remission; Translations: [Major depressive disorder, recurrent, in full remission] Onset: 10-04-2014 Chronic Nutritional deficiencies (4 sources) Vitamin D deficiency, unspecified; Translations: [Vitamin D deficiency] Onset: 05-02-2022 Chronic Osteoarthritis (20 sources) Localized, primary osteoarthritis of the wrist; Translations: [Primary osteoarthritis, right wrist] Onset: 10-04-2014 Resolved: 02-17-2022 Chronic Osteoporosis (20 sources) Osteoporosis; Translations: [Age-related osteoporosis without current pathological fracture] Onset: 12-07-2022 Chronic Other aftercare (20 sources) High risk drug monitoring status; Translations: [terminal gauger (current) use of opiate analgesic] Episodic Other aftercare (3 sources) Long-term current use of drug therapy; Translations: [Other vermin exterminator (current) drug therapy] Episodic Other aftercare (3 sources) Long-term current use of inhaled steroid; Translations: [terminal gauger (current) use of inhaled steroids] Episodic Other and unspecified benign neoplasm (3 sources) Benign neoplasm of cerebral meninges; Translations: [Benign neoplasm of cerebral meninges] Chronic Other bone disease and musculoskeletal deformities (3 sources) 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 Other bone disease and musculoskeletal deformities (11 sources) Aseptic necrosis of head of humerus; Translations: [Idiopathic aseptic necrosis of left humerus] Chronic Other bone disease and musculoskeletal deformities (3 sources) Bone density finding; Translations: [Other specified disorders of bone density and structure, unspecified site] Episodic Other connective tissue disease (18 sources) History of reverse prosthetic total arthroplasty of left shoulder; Translations: [Presence of left artificial shoulder joint] Chronic Other connective tissue disease (14 sources) Presence of left artificial shoulder joint; Translations: [Status post reverse total shoulder replacement, left] Chronic Other connective tissue disease (20 sources) 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; Translations: [Palmar fascial fibromatosis [Dupuytren]] Episodic Other connective tissue disease (20 sources) Supraspinatus tear; Translations: [Unspecified rotator cuff tear or rupture of right shoulder, not specified as traumatic] Episodic Other connective tissue disease (8 sources) Trochanteric bursitis, left hip Onset: 12-03-2021 Resolved: 03-11-2022 Episodic Other connective tissue disease (20 sources) Synovial cyst of lumbar spine; Translations: [Other bursal cyst, other site] 11-12-2020 Episodic Other connective tissue disease (20 sources) History of lumbar fusion; Translations: [Arthrodesis status] Episodic Other connective tissue disease (2 sources) Arthrodesis status Episodic Other connective tissue disease (2 sources) Trochanteric bursitis, right hip Episodic Other connective tissue disease (3 sources) Unspecified rotator cuff tear or rupture of left shoulder, not specified as traumatic Episodic Other connective tissue disease (1 source) Pain in right hand Episodic Other connective tissue disease (1 source) Pain in right leg Episodic Other connective tissue disease (9 sources) Trochanteric bursitis; Translations: [Trochanteric bursitis, left hip] 11-25-2023 Episodic Other connective tissue disease (9 sources) Bursitis of hip; Translations: [Trochanteric bursitis, unspecified hip] 11-25-2023 Episodic Other connective tissue disease (6 sources) Trochanteric bursitis, unspecified hip; Translations: [Enthesopathy of hip region] 11-25-2023 Episodic Other diseases of veins and lymphatics (20 sources) Peripheral venous insufficiency; Translations: [Venous insufficiency (chronic) (peripheral)] Episodic Other injuries and conditions due to external causes (14 sources) Open wound; Translations: [Other injury of unspecified body region, initial encounter] 10-11-2018 Episodic Other injuries and conditions due to external causes (6 sources) History of fall; Translations: [Personal history of fall] Onset: 09-09-2016 Episodic Other lower respiratory disease (1 source) Cough; Translations: [Cough] Onset: 04-11-2018 Episodic Other lower respiratory disease (3 sources) Cough; Translations: [Cough] Episodic Other lower respiratory disease (3 sources) Chest pain on breathing; Translations: [Chest pain on breathing] Episodic Other lower respiratory disease (3 sources) Dyspnea; Translations: [Other forms of dyspnea] Episodic Other nervous system disorders (20 sources) Chronic pain; Translations: [Other chronic pain] 11-25-2023 Chronic Other nervous system disorders (11 sources) Other chronic pain; Translations: [Other chronic pain] Onset: 09-02-2021 Resolved: 02-17-2022 Chronic Other nervous system disorders (20 sources) 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; Translations: [Neoplasm related pain (acute) (chronic)] Chronic Other nervous system disorders (3 sources) Neoplasm related pain (acute) (chronic) Onset: 02-17-2022 Resolved: 02-17-2022 Chronic Other nervous system disorders (3 sources) Hereditary disorder of nervous system; Translations: [Hereditary and idiopathic neuropathy, unspecified] Chronic Other nervous system disorders (3 sources) Polyneuropathy; Translations: [Polyneuropathy, unspecified] Chronic Other nervous system disorders (3 sources) Paresthesia; Translations: [Paresthesia of skin] Episodic Other non-traumatic joint disorders (20 sources) Derangement of left shoulder joint; Translations: [Other specific joint derangements of left shoulder, not elsewhere classified] Chronic Other non-traumatic joint disorders (2 sources) Other specific joint derangements of left shoulder, not elsewhere classified Chronic Other non-traumatic joint disorders (20 sources) Knee pain; Translations: [Pain in right knee] Episodic Other non-traumatic joint disorders (20 sources) Pain in right hip joint; Translations: [Pain in right hip] Episodic Other non-traumatic joint disorders (20 sources) Pain in wrist; Translations: [Pain in right wrist] Episodic Other non-traumatic joint disorders (8 sources) Pain in left hip; Translations: [Pain in left hip] Onset: 08-15-2021 Resolved: 11-07-2021 Episodic Other non-traumatic joint disorders (20 sources) Hip pain; Translations: [Pain in left hip] 11-25-2023 Episodic Other non-traumatic joint disorders (3 sources) Pain in right hip Episodic Other non-traumatic joint disorders (2 sources) Pain in left shoulder Episodic Other nutritional; endocrine; and metabolic disorders (17 sources) Obesity; Translations: [Obesity, unspecified] 10-11-2018 Chronic Other nutritional; endocrine; and metabolic disorders (3 sources) Body mass index 30+ - obesity; Translations: [Body mass index 31.0-31.9, adult] Onset: 10-21-2015 Chronic Other nutritional; endocrine; and metabolic disorders (9 sources) Obese class I; Translations: [Body mass index (BMI) 32.0-32.9, adult] Onset: 10-21-2015 Chronic Other nutritional; endocrine; and metabolic disorders (3 sources) Simple obesity ; Translations: [Other obesity due to excess calories] Onset: 10-21-2015 Chronic Other nutritional; endocrine; and metabolic disorders (3 sources) Morbid obesity; Translations: [Morbid (severe) obesity due to excess calories] Chronic Other nutritional; endocrine; and metabolic disorders (3 sources) Overweight; Translations: [Overweight] Episodic Other screening for suspected conditions (not mental disorders or infectious disease) (3 sources) Imaging result abnormal; Translations: [Abnormal findings on diagnostic imaging of other specified body structures] Chronic Other upper respiratory disease (3 sources) Seasonal allergic rhinitis; Translations: [Other seasonal allergic rhinitis] Chronic Other upper respiratory disease (9 sources) Allergic rhinitis; Translations: [Other allergic rhinitis] Onset: 01-29-2014 Chronic Other upper respiratory disease (3 sources) Vasomotor rhinitis; Translations: [Vasomotor rhinitis] Chronic Other upper respiratory infections (6 sources) Acute maxillary sinusitis; Translations: [Acute recurrent maxillary sinusitis] Onset: 08-26-2015 Episodic Residual codes; unclassified (11 sources) Obstructive sleep apnea (adult) (pediatric); Translations: [Obstructive sleep apnea (adult)(pediatric)] Onset: 01-19-2022 Chronic Residual codes; unclassified (20 sources) Obstructive sleep apnea syndrome; Translations: [Obstructive sleep apnea (adult) (pediatric)] Onset: 10-26-2016 12-19-2023 Chronic Residual codes; unclassified (14 sources) Pain; Translations: [Pain, unspecified] 10-11-2018 Episodic Residual codes; unclassified (1 source) Edema of lower extremity; Translations: [Localized edema] 03-31-2024 Episodic Residual codes; unclassified (1 source) Localized edema; Translations: [Edema] 03-31-2024 Episodic Screening and history of mental health and substance abuse codes (7 sources) Personal history of nicotine dependence; Translations: [History of tobacco use] Onset: 10-05-2016 Episodic Skin and subcutaneous tissue infections (20 sources) Pilonidal cyst; Translations: [Pilonidal cyst without abscess] 10-11-2018 Episodic Spondylosis; intervertebral disc disorders; other back problems (20 sources) Lumbar spondylosis; Translations: [Spondylosis without myelopathy or radiculopathy, lumbar region] Onset: 12-29-2016 Resolved: 03-11-2022 Chronic Spondylosis; intervertebral disc disorders; other back problems (20 sources) Spinal stenosis of lumbar region; Translations: [Spinal stenosis, lumbar region] Onset: 08-31-2018 Resolved: 09-02-2021 Episodic Sprains and strains (20 sources) Sprain of wrist; Translations: [Unspecified sprain of right wrist, initial encounter] Onset: 05-01-2014 Resolved: 03-11-2022 Episodic Substance-related disorders (20 sources) Tobacco dependence in remission; Translations: [Nicotine dependence, cigarettes, in remission] Chronic Systemic lupus erythematosus and connective tissue disorders (3 sources) Autoimmune disease; Translations: [Autoimmune disease, not elsewhere classified] Onset: [birth year]27-1957 Chronic Thyroid disorders (20 sources) Autoimmune thyroiditis; Translations: [Hypothyroidism, unspecified] Onset: 04-17-2022 Chronic Unclassified (2 sources) Encounter for preprocedural cardiovascular examination / Z01.810(ICD-9) Onset: 06-06-2018 Unclassified (1 source) Family hx of ischem heart dis and oth dis of the circ sys / Z82.49(ICD-9) Onset: 06-06-2018 Unclassified (1 source) Personal history of nicotine dependence / Z87.891(ICD-9) Onset: 06-06-2018 Unclassified (3 sources) Exposure to acute respiratory syndrome coronavirus 2; Translations: [Contact with and (suspected) exposure to COVID-19] Unclassified (3 sources) Identification of preoperative respiratory status; Translations: [Encounter for preprocedural respiratory examination] Unclassified (1 source) Pain in right hip; Translations: [Pain in right hip] Onset: 11-03-2023 Unclassified (1 source) Pain in right hand; Translations: [Pain in right hand] Onset: 07-13-2023 Unclassified (1 source) Encounter for screening mammogram for malignant neoplasm of breast; Translations: [Encounter for screening mammogram for malignant neoplasm of breast] Onset: 07-08-2023 Unclassified (1 source) Unspecified rotator cuff tear or rupture of left shoulder, not specified as traumatic; Translations: [Unspecified rotator cuff tear or rupture of left shoulder, not specified as traumatic] Onset: 06-25-2023 Unclassified (1 source) Presence of left artificial shoulder joint; Translations: [Presence of left artificial shoulder joint] Onset: 03-08-2023 Unclassified (1 source) Primary osteoarthritis, left shoulder; Translations: [Primary osteoarthritis, left shoulder] Onset: 02-24-2023 Unclassified (1 source) Encounter for preprocedural laboratory examination; Translations: [Encounter for preprocedural laboratory examination] Onset: 02-12-2023 Unclassified (1 source) Other specific joint derangements of left shoulder, not elsewhere classified; Translations: [Other specific joint derangements of left shoulder, not elsewhere classified] Onset: 02-05-2023 Unclassified (1 source) Pain in left shoulder; Translations: [Pain in left shoulder] Onset: 01-25-2023 Past or Other Problems Problem Classification Problem Date Documented Da te Episodic/Chronic Acute posthemorrhagic anemia (3 sources) Acute posthemorrhagic anemia; Translations: [Acute posthemorrhagic anemia] Onset: 09-09-2016 Episodic Allergic reactions (6 sources) Allergic urticaria; Translations: [Allergic urticaria] Onset: 05-19-2016 Episodic Bacterial infection; unspecified site (3 sources) Bacterial infectious disease; Translations: [Bacterial infection, unspecified, in conditions classified elsewhere and of unspecified site] Onset: 03-22-2017 Episodic Deficiency and other anemia (3 sources) Anemia; Translations: [Anemia, unspecified] Onset: 03-29-2019 Episodic E Codes: Cut/pierceb (1 source) Contact with other sharp object(s), not elsewhere classified, initial encounter; Translations: [[facility] OTH SHRP OB NOT ELSW CLASS INI] Onset: 04-17-2022 Episodic E Codes: Unspecified (1 source) Activity, gardening and landscaping; Translations: [ACTIVITY GARDENING AND LANDSCAPING] Onset: 04-17-2022 Episodic Fracture of upper limb (3 sources) Closed fracture of forearm; Translations: [Unspecified fracture of right forearm, initial encounter for closed fracture] Onset: 03-27-2018 Episodic Gastrointestinal hemorrhage (3 sources) Hematochezia; Translations: [Blood in stool] Onset: 03-29-2019 Episodic Immunizations and screening for infectious disease (4 sources) Encounter for immunization; Translations: [Vaccination given] Onset: 02-10-2017 Episodic Malaise and fatigue (3 sources) Malaise and fatigue; Translations: [Other malaise and fatigue] Onset: 03-28-2019 Episodic Open wounds of extremities (4 sources) Laceration without foreign body of left index finger without damage to nail, initial encounter; Translations: [LAC W/O FB LT IF W/O DMG NAIL INIT] Onset: 04-15-2022 Episodic Other acquired deformities (2 sources) Other biomechanical lesions of lumbar region Onset: 08-14-2021 Resolved: 09-02-2021 Episodic Other aftercare (1 source) Other penitentiary (current) drug therapy; Translations: [OTH DERMATOLOGY PHYSICIAN CURRENT DRUG THERAPY] Onset: 04-17-2022 Episodic Other connective tissue disease (3 sources) Cramp in limb; Translations: [Cramp of limb] Onset: 04-28-2016 Episodic Other connective tissue disease (2 sources) Pain in left hand; Translations: [Pain in left hand] Onset: 07-13-2023 Episodic Other injuries and conditions due to external causes (3 sources) Old healed fracture of bone ; Translations: [Personal history of (healed) traumatic fracture] Onset: 09-27-2012 Episodic Other screening for suspected conditions (not mental disorders or infectious disease) (3 sources) Abnormal findings on diagnostic imaging of breast; Translations: [Other abnormal and inconclusive findings on diagnostic imaging of breast] Onset: 01-27-2018 Episodic Pathological fracture (6 sources) Osteoporosis of disuse with pathological fracture; Translations: [Age-related osteoporosis with current pathological fracture, unspecified site, subsequent encounter for fracture with routine healing] Onset: 09-27-2015 Resolved: 12-17-2020 Episodic Pneumonia (except that caused by tuberculosis or sexually transmitted disease) (3 sources) Infective pneumonia; Translations: [Pneumonia due to other specified infectious organisms] Onset: 11-01-2017 Episodic Residual codes; unclassified (3 sources) Sleep disorder; Translations: [Persistent disorder of initiating or maintaining sleep] Onset: 05-31-2018 Episodic Residual codes; unclassified (3 sources) Edema; Translations: [Edema] Onset: 01-29-2014 Episodic Unclassified (1 source) Encounter for preprocedural cardiovascular examination; Translations: [Encounter for preprocedural cardiovascular examination] Onset: 06-06-2018 Unclassified (2 sources) Low back pain, unspecified M54.50 Results Test Name Value Interpretation Reference Range Facility Estimated glomerular filtrat ion rate (GFR) non- Americanon 01-31-2024 GFR/1.73 sq M.predicted among non-blacks MDRD (S/P/Bld) [Vol rate/Area] mL/min/{1.73_m2} >=60 [facility] Laboratory - Chemistry and C hemistry - challengeon 01-31-2024 Calcium [Mass/Vol] 9.9 mg/dL 8.5-10.1 [facility] Chloride [Moles/Vol] 108 mmol/L High 98-107 [facility] CO2 [Moles/Vol] 25.0 mmol/L 21.0-32.[address] [facility] Creatinine [Mass/Vol] 0.80 mg/dL 0.55-1.02 [facility] GFR/1.73 sq M.predicted MDRD (S/P/Bld) [Vol rate/Area] mL/min/{1.73_m2} >=60 [facility] Glucose [Mass/Vol] 85 mg/dL 74-106 [facility] Potassium [Moles/Vol] 4.4 mmol/L 3.5-5.1 [facility] Sodium [Moles/Vol] 143 mmol/L 136-145 [facility] Urea nitrogen [Mass/Vol] 26.0 mg/dL High 7.0-18.0 [facility] Urea nitrogen/Creatinine [Mass ratio] 32.5 mg/mg [facility] No Panel Informationon 01-30 25-Hydroxy Vitamin D Total 75.9 ng/mL [facility] Comment on above: <20 ng/mL Vit D defi cient20-<30 ng/mL Vit D [id number] ng/mL Vit D sufficient>100 ng/mL Potential Toxicity Serum or plasma anion gap de terminationon 01-31-2024 Anion gap [Moles/Vol] 14.4 mmol/L [facility] XR hip BI w [id number] 11-03-19 XR hip BI w PEL1V [facility] Main [place] [address] [place], [place] [id number] XRay Report Signed Patient: Tiana Louis MR#: [id number] : 1945 Acct:[id number] Age/Sex: 78 / F ADM Date: 11/03/23 [place] [facility] [place] [place]: Type: [facility] Attending Dr: Coy Cassidy II, MD Copies to: Coy Cassidy MD Ordering Provider: Coy Cassidy MD Date of Service: 11/03/23 XR/XR hip BI w PEL1V: Pain in right hip;Pain in left hip AP LOW PELVIS WITH BILATERAL HIPS -3 views CLINICAL HISTORY: Bilateral hip pain over the past week. Patient was getting out of a chair and fell low back pain radiating to the right leg. Previous right hip replacement and fracture fixation. COMPARISON: 11/26/2022 Standing AP low pelvis and crosstable lateral views of both hips were obtained. There is redemonstration of a right hip prosthesis. There is also a lateral plate with screws and cerclage wires. The proximal aspect of the stem of a right knee prosthesis is also seen. The bony structures are osteopenic. There is no new fracture or dislocation. There is no prominent degenerative change at the left hip. There is mild sclerosis at the SI joints. There are pedicle screws at S1. No soft tissue abnormalities are seen. XR/XR hip BI w PEL1V IMPRESSION: STABLE POSTOPERATIVE CHANGES. NO ACUTE BONY FINDINGS. Impression dictated by: Tomeka Obando M.D.11/03/2023 11:09 AM Dictation Location: [place] [address] Transcribed By: [facility] 11/03/23 1109 Dictated By: Tomeka Obando MD 11/03/23 1106 Signed By: 11/03/23 1109 Normal [facility] XR hand BI 3Von 07-13-2023 XR hand BI 3V [facility] Main [address] [address] XRay Report Signed Patient: Tiana Louis MR#: [id number] : 1945 Acct:[id number] Age/Sex: 78 / F ADM Date: 07/13/23 [place] [facility] [place]: Type: [facility] CLI Attending Dr: Barry Patel MD Copies to: Barry Patel MD Ordering Provider: Barry Patel MD Date of Service: 07/13/23 XR/XR hand BI 3V: Pain in right hand;Pain in left hand 3 views both hand plain film COMPARISON: None HISTORY: Bilateral hand pain for years ACUTE FINDINGS: None DEGENERATIVE CHANGE: Extensive bilateral 1st carpometacarpal degenerative changes. Minor interphalangeal degeneration. Minor wrist degeneration. SOFT TISSUE FINDINGS: Unremarkable JOINT EFFUSION: None POSTOP CHANGES: None BONY MINERALIZATION: Adequate XR/XR hand BI 3V IMPRESSION: Extensive bilateral 1st carpometacarpal degenerative change. Impression dictated by: Vaibhav Lemus M.D.07/13/2023 4:07 PM Dictation Location: [place] [address] Transcribed By: [facility] 07/13/23 160 Dictated By: Vaibhav Lemus DO 07/13/23 1606 Signed By: 07/13/23 1607 Normal [facility] MM screening mammo BI w/CADo n 07-08-2023 MM screening mammo BI w/CAD [facility] [place] [address] Mammography Report Signed Patient: Tiana Louis MR#: [id number] : 1945 Acct:[id number] Age/Sex: 78 / F ADM Date: 07/08/23 Loc: [place] Room: Type: [facility] CLI Attending Dr: Referral Self Copies to: Chucho Saravia DO SELF,REFERRAL Ordering Provider: SELF,REFERRAL Date of Service: 07/08/23 MM/MM screening mammo BI w/CAD: SCREENINH CLINICAL DATA: Screening for malignancy. Prior breast reduction BILATERAL SCREENING MAMMOGRAMS - FULL FIELD DIGITAL WITH TOMOSYNTHESIS AND CAD Tomosynthesis craniocaudal and mediolateral oblique views of both breasts were obtained using low- dose digital technique. Comparison is made to prior studies from July 03, 2020 through July 07, 2022. This examination was reviewed with the aid of CAD. The breast parenchyma has been largely replaced by fat. Postoperative scarring along with fat necrosis with calcification and oil cysts is again seen bilaterally. A biopsy marking clip is seen on the left. There are no developing masses, typically malignant calcifications or architectural distortion. There has been no significant interval change. MM/MM screening mammo BI w/CAD IMPRESSION: NO MAMMOGRAPHIC EVIDENCE OF MALIGNANCY. ROUTINE FOLLOW-UP IS RECOMMENDED IN ONE YEAR. RESULT CODE: 2 Benign Findings(s) DENSITY CODE: 1 (<25% glandular) FOLLOW UP: 1YR The false-negative rate of mammography is approximately 10-percent. Management of a palpable abnormality must be based on clinical grounds. Patient was entered into a reminder system with a target due date for the next mammogram. Impression dictated by: Tomeka Obando M.D.07/08/2023 2:27 PM Dictation Location: [facility] Transcribed By: STEF 07/08/231426 Dictated By: Tomeka Obando MD 07/08/231422 Signed By: 07/08/231426 Normal [facility] XR shoulder LT min 2V*on XR shoulder LT min 2V* [facility] [place] [address] XRay Report Signed Patient: Tiana Louis MR#: [id number] : 1945 Acct:[id number] Age/Sex: 78 / F ADM Date: 06/08/23 Loc: [facility] [place] Room: Type: [facility] Attending Dr: Barry Patel MD Copies to: Barry Patel MD Ordering Provider: Barry Patel MD Date of Service: 06/08/23 XR/XR shoulder LT min 2V*: Tear of left supraspinatus tendon LEFT SHOULDER - 3 views CLINICAL HISTORY: Follow-up shoulder replacement COMPARISON: 04/12/2023 AP, Y and Grashey views were obtained. A shoulder prosthesis is again visualized, unchanged from the prior. There is no developing fracture or dislocation. There are no significant soft tissue abnormalities. XR/XR shoulder LT min 2V* IMPRESSION: NO ACUTE BONY INJURY. Impression dictated by: Tomeka Obando M.D.06/08/2023 4:48 PM Dictation Location: [facility] Transcribed By: STEF 06/08/23 1648 Dictated By: Tomeka Obando MD 06/08/23 1637 Signed By: 06/08/23 1648 [facility] XR shoulder LT min 2V*on XR shoulder LT min 2V* [facility] [place] [address] XRay Report Signed Patient: Tiana Louis MR#: [id number] : 1945 Acct:[id number] Age/Sex: 78 / F ADM Date: 04/12/23 [place] [facility] [place]: Type: [facility] Attending Dr: Barry Patel MD Copies to: Barry Patel MD Ordering Provider: Barry Patel MD Date of Service: 04/12/23 XR/XR shoulder LT min 2V*: Status post reverse total shoulder replacement, left LEFT SHOULDER - 3 views CLINICAL HISTORY: Follow-up liver shoulder replacement. Continued pain. COMPARISON: 03/08/2023 AP, Y and Grashey views were obtained. There is osteopenia. A reverse shoulder prosthesis is again visualized. The hardware appears intact and unchanged from the prior. There is no developing fracture or dislocation. Degenerative changes are present at the imaged cervical and thoracic spine. There are no significant soft tissue abnormalities. XR/XR shoulder LT min 2V* IMPRESSION: STABLE SHOULDER REPLACEMENT Impression dictated by: Tomeka Obando M.D.04/12/2023 3:42 PM Dictation Location: [facility] Transcribed By: STEF 04/12/23 1542 Dictated By: Tomeka Obando MD 04/12/23 1541 Signed By: 04/12/23 1542 [facility] XR shoulder LT min 2V*on XR shoulder LT min 2V* [facility] Main [address] [address] XRay Report Signed Patient: Tiana Louis MR#: [id number] : 1945 Acct:[id number] Age/Sex: 78 / F ADM Date: 03/08/23 [place] [facility] [place]: Type: [facility] Attending Dr: Barry Patel MD Copies to: Barry Patel MD Ordering Provider: Barry Patel MD Date of Service: 03/08/23 XR/XR shoulder LT min 2V*: Status post reverse total shoulder replacement, left 3 views left shoulder plain film HISTORY: Follow-up assessment of reverse total left shoulder replacement COMPARISON: 02/24/2023 ACUTE FINDINGS: None DEGENERATIVE CHANGE: Unremarkable SOFT TISSUE FINDINGS: Unremarkable JOINT EFFUSION: None POSTOP CHANGES: No hardware failure loosening. BONY MINERALIZATION: Adequate XR/XR shoulder LT min 2V* IMPRESSION: Uncomplicated left shoulder arthroplasty Impression dictated by: Vaibhav Lemus M.D.03/08/2023 5:11 PM Dictation Location: [place] [address] Transcribed By: [facility] 03/08/231710 Dictated By: Vaibhav Lemus DO 03/08/231709 Signed By: 03/08/231710 [facility] 02-24-2023 L --- Specimen: [id number] Received: 02/24/23 Status: MARIA FERNANDA Johnson Num: [id number] Spec Type: Surgical Subm Dr: Barry Patel MD Tissues: A Joint/Knee (LT SHOULDER) Procedures: Gross/Micro L4, Decalcification Age/ Patient Sex Location Account Attending Physician Tiana Louis 78/F MD [id number] Barry Patel MD SPEC NUM: [id number] RECD: 02/24/23 STATUS: MARIA FERNANDA JOHNSON NUM: [id number] SHARDA: 02/24/[address] [facility] [address]: Barry Patel MD ENTERED: 02/24/[address] [facility] [address]: VALDEMAR TYPE: Surgical DEPT: S ORDERED: Gross/Micro L4, Decalcification ORDERED: Gross/Micro L4, Decalcification Pathological Diagnosis Bone and tissue, left shoulder, total shoulder replacement: - Specimen consistent with bone and soft tissue. - See Gross Description. Clinical Information Left shoulder pain Gross Description Received in formalin labeled with the patient's name, number and left shoulder bone and tissue is a 7.0 x 5.3 x 2.5 cm aggregate of hedrick-white bone and a red-markham rubbery tissue. The bone fragments have smooth the granular hedrick-hampton articular surfaces with eburnation identified. The cut surface of the bone is yellow-hedrick, trabecular. A gross photo is taken. Gross examination only. Microscopic Description Gross examination only. Specimen: [id number] Received: 02/24/23 Status: MARIA FERNANDA Johnson Num: [id number] Spec Type: Surgical Subm Dr: Barry Patel MD Tissues: A Joint/Knee (LT SHOULDER) Procedures: Gross/Micro L4, Decalcification Patient: HeribertoTiana [id number] (Continued) Specimen: [id number] Received: 02/24/23 (Continued) Signed (signature on file) Chai Grover MD 02/25/23 1140 Specimen: [id number] Received: 02/24/23 Status: MARIA FERNANDA Johnson Num: [id number] Spec Type: Surgical Subm Dr: Barry Patel MD Tissues: A Joint/Knee (LT SHOULDER) Procedures: Gross/Micro L4, Decalcification Patient: Tiana Louis [id number] (Continued) Specimen: [id number] Received: 02/24/23 (Continued) CPT Codes 19984 gross photo Specimen: [id number] Received: 02/24/23 Status: MARIA FERNANDA Johnson Num: [id number] Spec Type: Surgical Subm Dr: Barry Patel MD Tissues: A Joint/Knee (LT SHOULDER) Procedures: Gross/Micro L4, Decalcification Patient: Tiana Louis [id number] (Continued) Signed (signature on file) Cahi Grover MD 02/25/23 1140 Normal [facility] XR shoulder LT min 2V*on XR shoulder LT min 2V* [place] [address] XRay Report Signed Patient: Tiana Louis MR#: [id number] : 1945 Acct:[id number] Age/Sex: 78 / F ADM Date: 02/24/23 Loc: [place] Room: Type: [facility] Attending Dr: Barry Patel MD Copies to: Barry Patel MD Ordering Provider: Barry Patel MD Date of Service: 02/24/23 XR/XR shoulder LT min 2V*: POST OP LT. SHOULDER LEFT SHOULDER - - 3 views CLINICAL HISTORY: Postop left shoulder replacement COMPARISON: Left shoulder 01/25/2023 FINDINGS: Soft tissues demonstrate postoperative changes. No evidence of hardware complication. XR/XR shoulder LT min 2V* IMPRESSION: No acute bony process. Impression dictated by: Mir Delong Jr., D.ORoberto02/24/2023 10:39 AM Dictation Location: [place] [address] Transcribed By: [facility] 02/24/23 1039 Dictated By: Mir Delong Jr, DO 02/24/23 1038 Signed By: 02/24/23 1039 Normal [facility] Alanine aminotransferase [En zymatic activity/volume] in Serum or PlasmaOrdered By: Barry Patel on 02-12-2023 ALT [Catalytic activity/Vol] 17 U/L 7-52 [facility] Albumin [Mass/volume] in Ser um or Plasma by Bromocresol green (BCG) dye binding methoOrdered By: Barry Patel on 02-12-2023 Albumin BCG dye [Mass/Vol] 4.0 g/dL 3.5-5.7 [facility] Alkaline phosphatase [Enzyma tic activity/volume] in Serum or PlasmaOrdered By: Barry Patel on 02-12-2023 ALP [Catalytic activity/Vol] 46 U/L 34-104 [facility] Aspartate aminotransferase [ Enzymatic activity/volume] in Serum or PlasmaOrdered By: Barry Patel on 02-12-2023 AST [Catalytic activity/Vol] 14 U/L 13-39 [facility] Basophils Auto (Bld) [#/Vol] Ordered By: Barry Patel on 02-12-2023 Basophils (Bld) [#/Vol] 0.1 10*3/uL 0.0-0.2 [facility] Basophils/100 WBC Auto (Bld) Ordered By: Barry Patel on 02-12-2023 Basophils/100 WBC (Bld) 2.1 % . [facility] Bilirubin.total [Mass/volume ] in Serum or PlasmaOrdered By: Barry Patel on 02-12-2023 Bilirubin [Mass/Vol] 0.4 mg/dL 0.3-1.0 [facility] CMP with reflex to A1Con Albumin [Mass/Vol] 4.0 g/dL Normal 3.5-5.7 [facility] Comment on above: Performed By: #### C MP wRFX A1C, CBC #### [facility] [address] Albumin/Globulin [Mass ratio] 1.7 {ratio} Normal [facility] Comment on above: Performed By: #### C MP wRFX A1C, CBC #### [facility] [address] ALP [Catalytic activity/Vol] 46 U/L Normal 34-104 [facility] Comment on above: Result Comment: PERF ORMED BY: [place] [address] PATHOLOGIST BRINE TANK OPERATOR POWER GUTIERREZ M.D. Performed By: #### C MP wRFX A1C, CBC #### [facility] [address] [place] [address] ALT [Catalytic activity/Vol] 17 U/L Normal 7-52 [facility] Comment on above: Performed By: #### C MP wRFX A1C, CBC #### [facility] [address] [place] [address] Anion gap [Moles/Vol] 11.3 mmol/L Normal 6.0-15.0 [facility] Comment on above: Performed By: #### C MP wRFX A1C, CBC #### [address] AST [Catalytic activity/Vol] 14 U/L Normal 13-39 [facility] Comment on above: Performed By: #### C MP wRFX A1C, CBC #### [address] Bilirubin [Mass/Vol] 0.4 mg/dL Normal 0.3-1.0 [facility] Comment on above: Performed By: #### C MP wRFX A1C, CBC #### [facility] [address] [place] [address] Calcium [Mass/Vol] 9.6 mg/dL Normal 8.6-10.3 [facility] Comment on above: Performed By: #### C MP wRFX A1C, CBC #### [facility] [address] [place] [address] [place] Chloride [Moles/Vol] 112 mmol/L High 98-107 [facility] Comment on above: Performed By: #### C MP wRFX A1C, CBC #### [facility] [address] [place] [address] [place] CO2 [Moles/Vol] 24.6 mmol/L Normal 21.0-31.[address] [facility] Comment on above: Performed By: #### C MP wRFX A1C, CBC #### [facility] [place] [facility] [address] Creatinine [Mass/Vol] 0.78 mg/dL Normal 0.60-1.20 [facility] Comment on above: Performed By: #### C MP wRFX A1C, CBC #### [facility] [place] [facility] [address] [place] [address] [place] GFR/1.73 sq M.predicted MDRD (S/P/Bld) [Vol rate/Area] mL/min/{1.73_m2} Normal [facility] Comment on above: Performed By: #### C MP wRFX A1C, CBC #### [facility] [place] [facility] [address] Globulin (S) [Mass/Vol] 2.4 g/dL Normal [facility] Comment on above: Performed By: #### C MP wRFX A1C, CBC #### [facility] [address] [place] [address] [place] Glucose [Mass/Vol] 68 mg/dL Low 70-100 [facility] Comment on above: Performed By: #### C MP wRFX A1C, CBC #### [facility] [place] [facility] [address] [place] [address] [place] Potassium [Moles/Vol] 4.9 mmol/L Normal 3.5-5.1 [facility] Comment on above: Performed By: #### C MP wRFX A1C, CBC #### [facility] [address] [place] [id number] [place] Protein [Mass/Vol] 6.4 g/dL Normal 6.4-8.9 [facility] Comment on above: Performed By: #### C MP wRFX A1C, CBC #### [facility] [address] [place] [id number] [place] Sodium [Moles/Vol] 143 mmol/L Normal 136-145 [facility] Comment on above: Performed By: #### C MP wRFX A1C, CBC #### [facility] [address] [place] [id number] [facility] Urea nitrogen [Mass/Vol] 24 mg/dL Normal 7-25 [facility] Comment on above: Performed By: #### C MP wRFX A1C, CBC #### [facility] [address] Calcium [Mass/volume] in Ser um or PlasmaOrdered By: Barry Patel on 02-12-2023 Calcium [Mass/Vol] 9.6 mg/dL 8.6-10.3 [facility] Carbon dioxide, total [Moles /volume] in Serum or PlasmaOrdered By: Barry Patel on 02-12-2023 CO2 [Moles/Vol] 24.6 mmol/L 21.0-31.[address] [facility] Chloride [Moles/volume] in S dulce or PlasmaOrdered By: Barry Patel on 02-12-2023 Chloride [Moles/Vol] 112 mmol/L 98-107 [facility] Complete Blood Count Auto Di ffon 02-12-2023 Basophils (Bld) [#/Vol] 0.1 10*3/uL Normal 0.0-0.2 [facility] Comment on above: Result Comment: PERF ORMED BY: [place] [address] PATHOLOGIST BRINE TANK OPERATOR POWER GUTIERREZ M.D. Performed By: #### C MP wRFX A1C, CBC #### [facility] [address] [place] [address] [place] Basophils/100 WBC (Bld) 2.1 % Normal . [facility] Comment on above: Performed By: #### C MP wRFX A1C, CBC #### [facility] [address] [place] [address] [place] Eosinophils (Bld) [#/Vol] 0.5 10*3/uL High 0.0-0.45 [facility] Comment on above: Performed By: #### C MP wRFX A1C, CBC #### [facility] [address] [place] [address] [place] Eosinophils/100 WBC (Bld) 10.5 % Normal . [facility] Comment on above: Performed By: #### C MP wRFX A1C, CBC #### [address] Erythrocyte distribution width (RBC) [Ratio] 14.7 % Normal 11.9-15.3 [facility] Comment on above: Performed By: #### C MP wRFX A1C, CBC #### [address] Hematocrit (Bld) [Volume fraction] 38.2 % Normal 34.0-46.4 [facility] Comment on above: Performed By: #### C MP wRFX A1C, CBC #### [address] Hemoglobin (Bld) [Mass/Vol] 12.4 g/dL Normal 11.8-15.4 [facility] Comment on above: Performed By: #### C MP wRFX A1C, CBC #### [address] Lymphocytes (Bld) [#/Vol] 1.5 10*3/uL Normal 1.00-4.8 [facility] Comment on above: Performed By: #### C MP wRFX A1C, CBC #### [address] Lymphocytes/100 WBC (Bld) 31.3 % Normal . [facility] Comment on above: Performed By: #### C MP wRFX A1C, CBC #### [address] MCH (RBC) [Entitic mass] 29.7 pg Normal 24.7-34.3 [facility] Comment on above: Performed By: #### C MP wRFX A1C, CBC #### [address] MCV (RBC) [Entitic vol] 91.4 fL Normal 80-100 [facility] Comment on above: Performed By: #### C MP wRFX A1C, CBC #### [facility] [facility] [address] Mean Corpuscular HGB Conc 32.5 g/dL Normal 32.0-35.0 [facility] Comment on above: Performed By: #### C MP wRFX A1C, CBC #### [facility] [address] Monocytes (Bld) [#/Vol] 0.5 10*3/uL Normal 0.0-0.8 [facility] Comment on above: Performed By: #### C MP wRFX A1C, CBC #### [facility] [address] Monocytes/100 WBC (Bld) 9.9 % Normal . [facility] Comment on above: Performed By: #### C MP wRFX A1C, CBC #### [facility] [address] Neutrophils (Bld) [#/Vol] 2.1 10*3/uL Normal 1.8-7.7 [facility] Comment on above: Performed By: #### C MP wRFX A1C, CBC #### [facility] [address] [place] [address] [place] Neutrophils/100 WBC (Bld) 46.2 % Normal . [facility] Comment on above: Performed By: #### C MP wRFX A1C, CBC #### [facility] [address] [place] [address] [place] NRBC% 0.0 /100{WBC} Normal 0-0.5 [facility] Comment on above: Performed By: #### C MP wRFX A1C, CBC #### [facility] [address] [place] [address] [place] Platelet mean volume (Bld) [Entitic vol] 8.3 fL Normal 6.3-10.7 [facility] Comment on above: Performed By: #### C MP wRFX A1C, CBC #### [facility] [address] [place] [id number] [place] Platelets (Bld) [#/Vol] 287 10*3/uL Normal 150-450 [facility] Comment on above: Performed By: #### C MP wRFX A1C, CBC #### [facility] [address] RBC (Bld) [#/Vol] 4.18 10*6/uL Normal 3.60-5.00 [facility] Comment on above: Performed By: #### C MP wRFX A1C, CBC #### [facility] [address] WBC (Bld) [#/Vol] 4.6 10*3/uL Normal 3.8-11.6 [facility] Comment on above: Performed By: #### C MP wRFX A1C, CBC #### [facility] [address] Creatinine [Mass/volume] in Serum or PlasmaOrdered By: Barry Patel on 02-12-2023 Creatinine [Mass/Vol] 0.78 mg/dL 0.60-1.20 [facility] ECG 12 lead ECGon 02-12-2023 ECG 12 lead ECG [facility] [address] [place] [address] [place] [address] Electrocardiograph Report Signed Patient: Tiana Louis MR#: [id number] : 1945 Acct:[id number] Age/Sex: 78 / F ADM Date: 02/12/23 Loc: Room: Type: [facility] Attending Dr: Barry Patel MD Ordering Provider: Barry Patel MD Date of Service: 02/12/23 ECG/ECG 12 lead ECG: LEFT REVERSE TOTAL SHOULDER ARTHROPLASTY Copies to: Test Reason : Blood Pressure : / mmHG Vent. Rate : 053 BPM Atrial Rate : 053 BPM P-R Int : 156 ms QRS Dur : 088 ms QT Int : 424 ms P-R-T Axes : 054 042 052 degrees QTc Int : 397 ms Poor data quality, interpretation may be adversely affected Sinus bradycardia Otherwise normal ECG When compared with ECG of 28-OCT-2020 08:10, No significant change was found Confirmed by LAMAR SUN, LAMONT ([id number]) on 02/12/2023 4:31:01 PM Referred By: DR PATEL Electronically Signed By:LAMONT HOGAN MD Transcribed By: MUS Signed By Lamont Hogan MD 0 02/12/23 1631 Normal [facility] Eosinophils Auto (Bld) [#/Vo l]Ordered By: Barry Patel on 02-12-2023 Eosinophils (Bld) [#/Vol] 0.5 10*3/uL 0.0-0.45 [facility] Eosinophils/100 WBC Auto (Bl d)Ordered By: Barry Patel on 02-12-2023 Eosinophils/100 WBC (Bld) 10.5 % . [facility] Erythrocyte distribution wid th Auto (RBC) [Ratio]Ordered By: Barry Patel on 02-12-2023 Erythrocyte distribution width (RBC) [Ratio] 14.7 % 11.9-15.3 [facility] Globulin Calc (S) [Mass/Vol] Ordered By: Barry Patel on 02-12-2023 Globulin (S) [Mass/Vol] 2.4 g/dL [facility] Glucose [Mass/volume] in Ser um or PlasmaOrdered By: Barry Patel on 02-12-2023 Glucose [Mass/Vol] 68 mg/dL 70-100 [facility] Hematocrit Auto (Bld) [Volum e fraction]Ordered By: Barry Patel on 02-12-2023 Hematocrit (Bld) [Volume fraction] 38.2 % 34.0-46.4 [facility] Hemoglobin [Mass/volume] in BloodOrdered By: Barry Patel on 02-12-2023 Hemoglobin (Bld) [Mass/Vol] 12.4 g/dL 11.8-15.4 [facility] Leukocytes [#/volume] correc ana for nucleated erythrocytes in Blood by Automated counOrdered By: Barry Patel on 02-12-2023 WBC corrected for nucl RBC Auto (Bld) [#/Vol] 4.6 10*3/uL 3.8-11.6 [facility] Lymphocytes Auto (Bld) [#/Vo l]Ordered By: Barry Patel on 02-12-2023 Lymphocytes (Bld) [#/Vol] 1.5 10*3/uL 1.00-4.8 [facility] Lymphocytes/100 WBC Auto (Bl d)Ordered By: Barry Patel on 02-12-2023 Lymphocytes/100 WBC (Bld) 31.3 % . [facility] MCH Auto (RBC) [Entitic mass ]Ordered By: Barry Patel on 02-12-2023 MCH (RBC) [Entitic mass] 29.7 pg 24.7-34.3 [facility] MCHC Auto (RBC) [Mass/Vol]Or dered By: Barry Patel on 02-12-2023 MCHC (RBC) [Mass/Vol] 32.5 g/dL 32.0-35.0 [facility] MCV Auto (RBC) [Entitic vol] Ordered By: Barry Patel on 02-12-2023 MCV (RBC) [Entitic vol] 91.4 fL 80-100 [facility] Monocytes Auto (Bld) [#/Vol] Ordered By: Barry Patel on 02-12-2023 Monocytes (Bld) [#/Vol] 0.5 10*3/uL 0.0-0.8 [facility] Monocytes/100 WBC Auto (Bld) Ordered By: Barry Patel on 02-12-2023 Monocytes/100 WBC (Bld) 9.9 % . [facility] Neutrophils Auto (Bld) [#/Vo l]Ordered By: Barry Patel on 02-12-2023 Neutrophils (Bld) [#/Vol] 2.1 10*3/uL 1.8-7.7 [facility] Neutrophils/100 WBC Auto (Bl d)Ordered By: Barry Patel on 02-12-2023 Neutrophils/100 WBC (Bld) 46.2 % . [facility] No Panel InformationOrdered By: Barry Patel on 02-12-2023 Estimated GFR (CKD-EPI) > 60.0 mL/Min [facility] Creatinine Clearance (Chem N/A [facility] Nucleated erythrocytes [Pres ence] in Blood by Automated countOrdered By: Barry Patel on 02-12-2023 Nucleated RBC Auto Ql (Bld) 0.0 /100{WBC} 0-0.5 [facility] Platelet mean volume Auto (B ld) [Entitic vol]Ordered By: Barry Patel on 02-12-2023 Platelet mean volume (Bld) [Entitic vol] 8.3 fL 6.3-10.7 [facility] Platelets Auto (Bld) [#/Vol] Ordered By: Barry Patel on 02-12-2023 Platelets (Bld) [#/Vol] 287 10*3/uL 150-450 [facility] Potassium [Moles/volume] in Serum or PlasmaOrdered By: Barry Patel on 02-12-2023 Potassium [Moles/Vol] 4.9 mmol/L 3.5-5.1 [facility] Protein [Mass/volume] in Ser um or PlasmaOrdered By: Barry Patel on 02-12-2023 Protein [Mass/Vol] 6.4 g/dL 6.4-8.9 [facility] RBC Auto (Bld) [#/Vol]Ordere d By: Barry Patel on 02-12-2023 RBC (Bld) [#/Vol] 4.18 10*6/uL 3.60-5.00 [facility] Serum or plasma albumin/glob ulin mass ratioOrdered By: Barry Patel on 02-12-2023 Albumin/Globulin [Mass ratio] 1.7 {ratio} [facility] Serum or plasma anion gap de terminationOrdered By: Barry Patel on 02-12-2023 Anion gap [Moles/Vol] 11.3 mmol/L 6.0-15.0 [facility] Sodium [Moles/volume] in Ser um or PlasmaOrdered By: Barry Patel on 02-12-2023 Sodium [Moles/Vol] 143 mmol/L 136-145 [facility] Urea nitrogen [Mass/volume] in Serum or PlasmaOrdered By: Barry Patel on 02-12-2023 Urea nitrogen [Mass/Vol] 24 mg/dL 7-25 [facility] WBC Auto (Bld) [#/Vol]Ordere d By: Barry Patel on 02-12-2023 WBC (Bld) [#/Vol] 4.6 10*3/uL 3.8-11.6 [facility] MR shoulder LT wo conon 01-25 MR shoulder LT wo con [facility] [address] [place] [address] [place] [address] MRI Report Signed Patient: Tiana Louis MR#: [id number] : 1945 Acct:[id number] Age/Sex: 78 / F ADM Date: 02/05/23 [facility] Room: Type: [facility] Attending Dr: Barry Patel MD Copies to: Barry Patel MD Ordering Provider: Barry Patel MD Date of Service: 02/05/23 MR/MR shoulder LT wo con: Internal derangement of left shoulder MR LEFT SHOULDER CLINICAL INFORMATION: Left shoulder pain with decreased range of motion. COMPARISON: 01/25/2023. PROCEDURE: Axial, oblique coronal, and oblique sagittal long TR images of the shoulder were obtained. FINDINGS: ROTATOR CUFF AND ASSOCIATED STRUCTURES Biceps Tendon: There is a full-thickness tear of the isotope long head tendon from the insertion site with frayed tendon components are noted in the biceps groove. Rotator cuff: There is a full-thickness tear of the supraspinatus tendon with medial retraction of the tendon fibers by approximately 3 cm. There is a partial-thickness articular surface tear of the infraspinatus tendon near the insertion site. The subscapularis and teres minor are intact. Musculature: There is no muscular tear, contusion, or atrophy. Bursa: No bursal effusion or thickening is seen. OSSEOUS STRUCTURES Acromioclavicular joint: There are mild degenerative changes of the acromioclavicular joint. A type 2 acromion configuration is noted. There is no anterior or lateral acromial downsloping. Bones: No Hill-Sachs, reverse Hill-Sachs, or bony Bankart lesions are seen. There are no fractures. There is subcortical edema along the superior aspect of the articular surface of the humeral head measuring 7 mm in greatest dimension. This may be degenerative in nature. GLENOHUMERAL JOINT Joint: There is a moderate joint effusion with a ganglion cyst. The largest component extends to the anterior margin of the subscapularis measuring 19 x 14 x 20 mm in greatest dimension. Cartilage: There is partial thickness chondromalacia on both sides of the joint space Labrum: The labrum is not optimally evaluated. 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 Other support structures: No capsular or ligamentous abnormality is seen. MR/MR shoulder LT wo con IMPRESSION: 1. There is a full-thickness tear of the isotope long head tendon from the insertion site with frayed tendon components are noted in the biceps groove. 2. There is a full-thickness tear of the supraspinatus tendon with medial retraction of the tendon fibers by approximately 3 cm. 3. There is a partial-thickness articular surface tear of the infraspinatus tendon near the insertion site. 4. There is subcortical edema along the superior aspect of the articular surface of the humeral head measuring 7 mm in greatest dimension. This may be degenerative in nature. There is an accompanying joint effusion with a ganglion cyst, as above. 5. The labrum is not optimally evaluated. 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 Impression dictated by: Dereck Angel M.D.02/05/2023 11:20 AM Dictation Location: [place] [address] Transcribed By: [facility] 02/05/23 1120 Dictated By: Dereck Angel II, MD 02/05/23 1113 Signed By: 02/05/23 1120 [facility] XR shoulder LT min 2V*on XR shoulder LT min 2V* [facility] [place] [address] XRay Report Signed Patient: Tiana Louis MR#: [id number] : 1945 Acct:[id number] Age/Sex: 78 / F ADM Date: 01/25/23 Loc: [facility] Room: Type: [facility] Attending Dr: Barry Patel MD Copies to: Barry Patel MD Ordering Provider: Barry Patel MD Date of Service: 01/25/23 XR/XR shoulder LT min 2V*: Acute pain of left shoulder LEFT SHOULDER - - 4 views CLINICAL HISTORY: Chronic left shoulder pain with limited range of motion. COMPARISON: None FINDINGS: Mild degenerative changes of the AC and glenohumeral joints without acute bony process. XR/XR shoulder LT min 2V* IMPRESSION: MILD DEGENERATIVE CHANGES OF THE LEFT SHOULDER WITHOUT ACUTE BONY PROCESS. Impression dictated by: Mir Delong Jr., D.ORoberto01/26/2023 12:10 PM Dictation Location: [place] [address] Transcribed By: [facility] 01/26/23 1210 Dictated By: Mir Delong Jr, DO 01/26/23 1209 Signed By: 01/26/23 1210 Normal [facility] XR femur RT 2V*on 11-26-2022 XR femur RT 2V* [facility] [address] [place] [address] [place] [address] XRay Report Signed Patient: Tiana Louis MR#: [id number] : 1945 Acct:[id number] Age/Sex: 77 / F ADM Date: 11/26/22 Loc: [facility] Room: Type: [facility] Attending Dr: Coy Cassidy II, MD Copies to: Coy Cassidy MD Ordering Provider: Coy Cassidy MD Date of Service: 11/26/22 XR/XR knee RT 3V - NOT FOR ER USE: Right hip pain ([id number]) XR/XR femur RT 2V*: Right hip pain XR knee RT 3V - NOT FOR ER USE, XR femur RT 2V* 11/26/2022 12:58 PM SIGNS AND SYMPTOMS: 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 There is no fracture or subluxation. There is narrowing of the left patellofemoral joint space greatest in the lateral articular facet. There is no accompanying soft tissue swelling. Right femur: There is total right hip arthroplasty hardware with lateral plate and screw fixation and cerclage fixation of the proximal femur. There is evidence of prior right hip arthroplasty revision. There is no hardware complication or change in alignment. There is total right knee arthroplasty hardware status post revision. There is similar periosteal thickening in the distal shaft and metaphysis, increasing laterally when compared to the prior exam. There is also increasing heterogeneity of the marrow space of the distal femur which is of uncertain etiology. Vascular calcifications are present in the soft tissues posteriorly. XR/XR knee RT 3V - NOT FOR ER USE IMPRESSION: Bilateral knees: Unchanged total left knee arthroplasty hardware. Degenerative changes are noted in the patellofemoral joint on the left. Right femur: Increasing periosteal thickening of the distal shaft of the right femur with increasing heterogeneity of the marrow space surrounding the femoral stem of total right knee arthroplasty hardware. This is of uncertain etiology. Unchanged total right hip arthroplasty status post revision. Impression dictated by: Dereck Angel M.D.11/26/2022 2:43 PM Dictation Location: [place] [address] Transcribed By: [facility] 11/26/22 1443 Dictated By: Dereck Angel II, MD 11/26/22 1424 Signed By: 11/26/22 1443 Normal [facility] XR hip RT min 2V(w/wo pelvis )*on 11-26-2022 XR hip RT min 2V(w/wo pelvis)* [facility] [place] [address] [place] [address] XRay Report Signed Patient: Tiana Louis MR#: [id number] : 1945 Acct:[id number] Age/Sex: 77 / F ADM Date: 11/26/22 Loc: [facility] Room: Type: [facility] Attending Dr: Coy Cassidy II, MD Copies to: Coy Cassidy MD Ordering Provider: Coy Cassidy MD Date of Service: 11/26/22 XR/XR hip RT min 2V(w/wo pelvis)*: Right hip pain RIGHT HIP - 2 views: CLINICAL HISTORY: Increased right hip pain for 6 months. COMPARISON: Right hip 10/29/2022 FINDINGS: Right hip prosthesis is in place with partially visualized right femoral hardware and cerclage wires present. No evidence of hardware complication is seen. Additional hardware seen involving the lumbosacral junction. SI joints demonstrate degenerative change. Mild degenerative changes of the left hip. XR/XR hip RT min 2V(w/wo pelvis)* IMPRESSION: NO ACUTE PROCESS. NO EVIDENCE OF HARDWARE COMPLICATION.. Impression dictated by: Mir Delong Jr., D.O.11/26/2022 2:05 PM Dictation Location: [facility] Transcribed By: [facility] 11/26/22 140 Dictated By: Mir Delong Jr, DO 11/26/221403 Signed By: 11/26/22 140 [facility] CBC AUTO DIFFon 11-17-2022 BASO # 0.0 103/ul Normal 0.0-0.1 [facility] Comment on above: Performed By: #### D ATCBC #### [facility] [address] [place] [address] [address] Jackeline Thakkar Basophils/100 WBC (Bld) 0.8 % Normal 0.2-2.0 [facility] Comment on above: Performed By: #### D ATCBC #### [facility] [address] [place] [address] [address] Jackeline Thakkar EO # 0.1 103/ul Normal 0.0-0.7 [facility] Comment on above: Performed By: #### D ATCBC #### [facility] [address] [place] [address] [address] Jackeline Thakkar Eosinophils/100 WBC (Bld) 2.4 % Normal 0.9-7.0 [facility] Comment on above: Performed By: #### D ATCBC #### [facility] [address] [place] [address] [address] Jackeline Thakkar Erythrocyte distribution width (RBC) [Ratio] 14.4 % Normal 11.0-15.0 [facility] Comment on above: Performed By: #### D ATCBC #### [facility] [address] [place] [address] [address] Jackeline Thakkar Hematocrit (Bld) [Volume fraction] 40.8 % Normal 36.0-48.0 [facility] Comment on above: Performed By: #### D ATCBC #### [facility] [address] [place] [address] Dr. Jackeline Thakkar Hemoglobin (Bld) [Mass/Vol] 13.5 g/dL Normal 12.0-16.0 [facility] Comment on above: Performed By: #### D ATCBC #### [facility] [address] [place] [address] [address] Jackeline Thakkar IG # 0.01 10e3/ul Normal 0.00-0.03 [facility] Comment on above: Performed By: #### D ATCBC #### [facility] [address] [place] [address] [address] Jackeline Thakkar IG % 0.2 % Normal 0.0-0.5 [facility] Comment on above: Performed By: #### D ATCBC #### [facility] [address] [place] [address] [address] Jackeline Thakkar LYMPH # 1.4 103/ul Normal 1.2-3.8 [facility] Comment on above: Performed By: #### D ATCBC #### [facility] [address] [place] [address] Dr. Jackeline Thakkar Lymphocytes/100 WBC (Bld) 29.2 % Normal 20.5-60.0 [facility] Comment on above: Performed By: #### D ATCBC #### [facility] [address] [place] [address] Dr. Jackeline Thakkar MCH (RBC) [Entitic mass] 30.1 pg Normal 26.7-34.0 [facility] Comment on above: Performed By: #### D ATCBC #### [facility] [address] [place] [address] Dr. Jackeline Thakkar MCHC (RBC) [Mass/Vol] 33.1 g/dL Normal 29.9-35.2 [facility] Comment on above: Performed By: #### D ATCBC #### [facility] [address] [place] [address] Dr. Jackeline Thakkar MCV (RBC) [Entitic vol] 91.1 fL Normal 81.0-99.0 [facility] Comment on above: Performed By: #### D ATCBC #### [facility] [address] [place] [address] Dr. Jackeline Thakkar MONO # 0.6 103/ul Normal 0.3-0.8 [facility] Comment on above: Performed By: #### D ATCBC #### [facility] [address] [place] [address] Dr. Jackeline Thakkar Monocytes/100 WBC (Bld) 11.4 % Normal 1.7-12.0 [facility] Comment on above: Performed By: #### D ATCBC #### [facility] [address] [place] [address] Dr. Jackeline Thakkar NEUT # 2.8 103/ul Normal 1.4-6.5 [facility] Comment on above: Performed By: #### D ATCBC #### [facility] [address] [place] [address] Dr. Jackeline Thakkar Neutrophils/100 WBC (Bld) 56.0 % Normal 43.0-75.0 [facility] Comment on above: Performed By: #### D ATCBC #### [facility] [address] [place] [address] Dr. Jackeline Thakkar Platelet mean volume (Bld) [Entitic vol] 9.8 fL Normal 9.5-13.5 [facility] Comment on above: Performed By: #### D ATCBC #### [facility] [address] [place] [address] Dr. Jackeline Thakkar PLT 352 103/ul Normal 150-450 [facility] Comment on above: Performed By: #### D ATCBC #### [facility] [address] [place] [address] Dr. Jackeline Thakkar RBC 4.48 106/ul Normal 4.20-5.40 [facility] Comment on above: Performed By: #### D ATCBC #### [facility] [address] [place] [address] Dr. Jackeline Thakkar WBC 4.9 103/ul Normal 4.0-11.0 [facility] Comment on above: Performed By: #### D ATCBC #### [facility] [address] [place] [address] Dr. Jackeline Thakkar RYLAN - VITAMIN Don 11-17-2022 VIT D 25-OH 70.3 ng/mL Normal [facility] Comment on above: Performed By: #### D ATVITD, DATBMP #### [facility] [address] [place] [address] Dr. Jackeline Thakkar VIT D RANGES SEE BELOW Normal [facility] Comment on above: Result Comment: <20 ng/mL Vit D deficient 20 - <30 ng/mL Vit D insufficient 30 - 100 ng/mL Vit D sufficient >100 ng/mL Potential Toxicity Performed By: #### D ATJEFF DATBMP #### [facility] [address] [place] [address] Dr. Jackeline Thakkar RYLAN- BMP WITH LIPIDon 2022 Anion gap [Moles/Vol] 13.4 mmol/L Normal [facility] Comment on above: Performed By: #### D SUMMER DATBMP #### [facility] [address] [place] [address] Dr. Jackeline Thakkar Calcium [Mass/Vol] 9.7 mg/dL Normal 8.5-10.1 [facility] Comment on above: Performed By: #### D SUMMER DATBMP #### [facility] [address] [place] [address] Dr. Jackeline Thakkar Chloride [Moles/Vol] 106 mmol/L Normal 98-107 [facility] Comment on above: Performed By: #### D SUMMER DATBMP #### [facility] [address] [place] [address] Dr. Jackeline Thakkar Cholesterol [Mass/Vol] 291 mg/dL Critically high <=200 [facility] Comment on above: Performed By: #### D SUMMER DATBMP #### [facility] [address] [place] [address] Dr. Jackeline Thakkar Cholesterol in HDL [Mass/Vol] 70 mg/dL Critically high 40-60 [facility] Comment on above: Performed By: #### D ATJEFF DATBMP #### [facility] [address] [place] [address] Dr. Jackeline Thakkar Cholesterol in LDL [Mass/Vol] 193.6 mg/dL Normal [facility] Comment on above: Performed By: #### D SUMMER DATBMP #### [facility] [address] [place] [address] [address] Jackeline Thakkar CO2 [Moles/Vol] 20.9 mmol/L Critically low 21.0-32.0 [facility] Comment on above: Performed By: #### D ATVITD, DATBMP #### [facility] [address] [place] [address] [address] Jackeline Thakkar Creatinine [Mass/Vol] 0.75 mg/dL Normal 0.55-1.02 [facility] Comment on above: Performed By: #### D ATVITD, DATBMP #### [facility] [address] [place] [address] Dr. Jackeline Thakkar EGFR-AF PRYDEINIG >60 Normal >=60 [facility] Comment on above: Performed By: #### D ATVITD, DATBMP #### [facility] [address] [place] [address] Dr. Jackeline Thakkar EGFR-NON AF PRYDEINIG >60 Normal >=60 [facility] Comment on above: Performed By: #### D ATVITBelle, DATBMP #### [facility] [address] [place] [address] [address] Jackeline Thakkar Glucose [Mass/Vol] 104 mg/dL Normal 74-106 [facility] Comment on above: Performed By: #### D ATVITBelle, DATBMP #### [facility] [address] [place] [address] [address] Jackeline Thakkar HDL NORMAL > or = 60 mg/dl - LO W CARDIOVASCULAR RISK <40 mg/dl - HIGH CARDIOVASCULAR RISK Normal [facility] Comment on above: Performed By: #### D ATVITD, DATBMP #### [facility] [address] [place] [address] Dr. Jackeline Thakkar LDL CALC NORMAL SEE BELOW Normal [facility] Comment on above: Result Comment: <100 mg/dl OPTIMAL 100 - 129 mg/dl NEAR OR ABOVE OPTIMAL 130 - 159 mg/dl BORDERLINE HIGH 160 - 189 mg/dl HIGH >190 mg/dl VERY HIGH Performed By: #### D ATVITD, DATBMP #### [facility] [address] [place] [address] Dr. Jackeline Thakkar Potassium [Moles/Vol] 4.3 mmol/L Normal 3.5-5.1 [facility] Comment on above: Performed By: #### D ATMAURATD, DATBMP #### [facility] [address] [place] [address] Dr. Jackeline Thakkar Sodium [Moles/Vol] 136 mmol/L Normal 136-145 [facility] Comment on above: Performed By: #### D ATVITBelle, DATBMP #### [facility] [address] [place] [address] Dr. Jackeline Thakkar Triglyceride [Mass/Vol] 137 mg/dL Normal <=150 [facility] Comment on above: Performed By: #### D ATMAURATBelle DATBMP #### [facility] [address] [place] [address] Dr. Jackeline Thakkar Urea nitrogen [Mass/Vol] 30.0 mg/dL Critically high 7.0-18.0 [facility] Comment on above: Performed By: #### D SUMMER DATBMP #### [facility] [address] [place] [address] Dr. Jackeline Thakkar Urea nitrogen/Creatinine [Mass ratio] 40.0 mg/mg Normal [facility] Comment on above: Performed By: #### D ATJEFF DATBMP #### [facility] [address] [place] [address] Dr. Jackeline Thakkar VLDL CALC 27.4 mg/dL Normal [facility] Comment on above: Performed By: #### D ATMAURATBelle, DATBMP #### [facility] [address] [place] [address] Dr. Jackeline Thakkar XR hip RT min 2V(w/wo pelvis )*on 10-29-2022 XR hip RT min 2V(w/wo pelvis)* [facility] Other XR hip RT min 2V(w/wo pelvis)* [facility] Other XR hip RT min 2V(w/wo pelvis)* [address] Other XR hip RT min 2V(w/wo pelvis)* ROLLY [place]m [address] [facility] Other XR hip RT min 2V(w/wo pelvis)* XRay Report [facility] Other XR hip RT min 2V(w/wo pelvis)* Signed [facility] Other XR hip RT min 2V(w/wo pelvis)* Patient: Tiana Louis MR#: [id number] [facility] Other XR hip RT min 2V(w/wo pelvis)* : 1945 Acct:[id number] [facility] Other XR hip RT min 2V(w/wo pelvis)* Age/Sex: 77 / F ADM Date: 10/29/22 [facility] Other XR hip RT min 2V(w/wo pelvis)* Loc: [facility] [place]: Type: [facility] Other XR hip RT min 2V(w/wo pelvis)* Attending Dr: Barry Valenzuela MD [facility] Other XR hip RT min 2V(w/wo pelvis)* Copies to: Barry Valenzuela MD [facility] Other XR hip RT min 2V(w/wo pelvis)* Ordering Provider: Barry Valenzuela MD [facility] Other XR hip RT min 2V(w/wo pelvis)* Date of Service: 10/29/22 [facility] Other XR hip RT min 2V(w/wo pelvis)* XR/XR hip RT min 2V(w/wo pelvis)*: Bilateral sacroiliitis [facility] Other XR hip RT min 2V(w/wo pelvis)* RIGHT HIP - 2 views: [facility] Other XR hip RT min 2V(w/wo pelvis)* CLINICAL HISTORY: Low back pain radiating into right hip and groin. [facility] Other XR hip RT min 2V(w/wo pelvis)* COMPARISON: Right hip 04/09/2020 [facility] Other XR hip RT min 2V(w/wo pelvis)* FINDINGS: Right hip prosthesis with adjacent femoral hardware without evidence of hardware [facility] Other XR hip RT min 2V(w/wo pelvis)* complication. Please note that the femoral hardware is incompletely visualized on today's study. [facility] Other XR hip RT min 2V(w/wo pelvis)* Additional hardware is seen at the lumbosacral junction without evidence of hardware complication. [facility] Other XR hip RT min 2V(w/wo pelvis)* Degenerative changes are noted involving the SI joints. Left hip appears unremarkable. No acute [facility] Other XR hip RT min 2V(w/wo pelvis)* bony process. [facility] Other XR hip RT min 2V(w/wo pelvis)* XR/XR hip RT min 2V(w/wo pelvis)* [facility] Other XR hip RT min 2V(w/wo pelvis)* IMPRESSION: [facility] Other XR hip RT min 2V(w/wo pelvis)* NO ACUTE BONY PROCESS OR EVIDENCE OF HARDWARE COMPLICATION.. [facility] Other XR hip RT min 2V(w/wo pelvis)* Impression dictated by: Mir Delong Jr., D.ORoberto10/29/2022 3:09 PM [facility] Other XR hip RT min 2V(w/wo pelvis)* Dictation Location: [place] [address] [facility] Other XR hip RT min 2V(w/wo pelvis)* Transcribed By: PWS 10/29/22 0200 [facility] Other XR hip RT min 2V(w/wo pelvis)* Dictated By: Mir Delong Jr, DO 10/29/22 150 [facility] Other XR hip RT min 2V(w/wo pelvis)* Signed By: [facility] Other XR hip RT min 2V(w/wo pelvis)* 10/29/22 5990 [facility] Other Creatinine (Bld) [Mass/Vol]O rdered By: Benigno Kennedy on 08-27-2022 Creatinine [Mass/Vol] 0.7 mg/dL 0.6-1.3 [facility] Comment on above: ER/ESD physician is notified/shown all ISTAT results.Critical values may be confirmed by laboratory testing ifdeemed necessary by ER attending doctor. No Panel InformationOrdered By: Benigno Kennedy on 08-27-2022 POC Estimated GFR > 60 [facility] Comment on above: GFR estimated refere nce range: According to KDOQI guidelines, <60 ml/min/1.73m2 is sufficient to diagnose a patient with chronic kidney disease. POC Estimated GFR Non- Amer > 60 [facility] TSHon 06-22-2022 TSH 2.766 uIU/mL Normal 0.358-3.740 [facility] Comment on above: Performed By: #### T #### [facility] [address] [address] [address] Jackeline Thakkar VIT D 25-OH LABCORPon 2021 Vitamin D, 25-Hydroxy 50.3 ng/mL Normal 30.0-100.0 [facility] Comment on above: Result Comment: Shakira min D deficiency has been defined by the [place] of [employer] and an Endocrine Society practice guideline as a level of serum 25-OH vitamin D less than 20 ng/mL (1,2). The Endocrine Society went on to further define vitamin D insufficiency as a level between 21 and 29 ng/mL (2). 1. IOM ([place] of Medicine). 2010. Dietary reference intakes for calcium and D. [place]: The National Academies Press. 2. Lolly MF, Raven ESTES, Kitty RAMACHANDRAN, et al. Evaluation, treatment, and prevention of vitamin D deficiency: an Endocrine Society clinical practice guideline. JCEM. 2010; 96(7):1911-30. Performed By: #### V ITADLC #### [facility] [address] [place] [address] Dr. Jackeline Thakkar PROF CHEM 8 (BAS METB)on Anion gap [Moles/Vol] 12.3 mmol/L Normal [facility] Comment on above: Performed By: #### B MP #### [facility] [address] [place] [address] Dr. Jackeline Thakkar Calcium [Mass/Vol] 9.0 mg/dL Normal 8.5-10.1 [facility] Comment on above: Performed By: #### B MP #### [facility] [address] [address] [address] Jackeline Thakkar Chloride [Moles/Vol] 106 mmol/L Normal 98-107 [facility] Comment on above: Performed By: #### B MP #### [facility] [address] [address] [address] Jackeline Thakkar CO2 [Moles/Vol] 26.5 mmol/L Normal 21.0-32.0 [facility] Comment on above: Performed By: #### B MP #### [facility] [address] [address] [address] Jackeline Thakkar Creatinine [Mass/Vol] 0.83 mg/dL Normal 0.55-1.02 [facility] Comment on above: Performed By: #### B MP #### [facility] [address] [place] [address] Dr. Jackeline Thakkar EGFR-AF PRYDEINIG >60 Normal >=60 [facility] Comment on above: Performed By: #### B MP #### [facility] [address] [address] [address] Jackeline Thakkar EGFR-NON AF PRYDEINIG >60 Normal >=60 [facility] Comment on above: Performed By: #### B MP #### [facility] [address] [address] [address] Jackeline Thakkar Glucose [Mass/Vol] 92 mg/dL Normal 74-106 [facility] Comment on above: Performed By: #### B MP #### [facility] [address] [address] [address] Jackeline Thakkar Potassium [Moles/Vol] 3.8 mmol/L Normal 3.5-5.1 [facility] Comment on above: Performed By: #### B MP #### [facility] [address] [address] [address] Jackeline Thakkar Sodium [Moles/Vol] 141 mmol/L Normal 136-145 [facility] Comment on above: Performed By: #### B MP #### [facility] [address] [address] [address] Jackeline Thakkar Urea nitrogen [Mass/Vol] 13.0 mg/dL Normal 7.0-18.0 [facility] Comment on above: Performed By: #### B MP #### [facility] [address] [address] [address] Jackeline Thakkar Urea nitrogen/Creatinine [Mass ratio] 15.7 mg/mg Normal [facility] Comment on above: Performed By: #### B MP #### [facility] [address] [address] [address] Jackeline Augustin 04-11-2018 CNOV Office Visit (PULMAV) TIANA BOYLE ([id number]) 1945 FDate Time Provider [facility]/11[facility] 9:30 AM RENATA YADAV PULRONNY During your visit today, we recorded the following information about you: Pulse Respiration Blood pressure Weight 64/minute 12/minute 144/71 96.5 kg Height 1.626 Nate Yadav MD 04/11/2018 11:13 AM SignedConsultation requested by Manjit Marte for an opinion regarding Chronic cough andCOPD. My final recommendations will be communicated back to the requestingphysician by way of shared Medical record or letter to requesting physician viaUS mail.Tiana Louis is a 73 year old female who presents for New Patient; Cough; andShortness of Breath. She comes to the clinic accompanied by her husbandHPI:Ms. Louis is a 73 year old female former smoker with history of peripheralneuropathy, hypothyroidism, chronic depression, osteopenia, OA, meningioma,BRET, severe on CPAP, Allergic rhinitis. Obesity, pneumonia / bronchitis.She comes for second opinion about her respiratory problemsShe reports a chronic cough and dyspnea for al least 15 years. She was smokingat the onset of symptoms and thought it was a smokers' cough. It wasproductive with think yellow colored mucus. She was on Symbicort for This.Many years ago, she was on Spiriva.In 2012, she quit smoking, but her cough was more noticeable.In 08/2017, she got sick with repiratory infection, She was told she hasbronchitis. She returned with prednisone and antibiotics. Her cough improvedfor a few days while she was on prednisone but then got worse again. Sheunderwent a chest x-ray in September which showed a small left lower lobepneumonia. She was again treated with another course of antibiotics. She wasalso seen by Upholstery Covers Inspector Dr. CARRASCO, I have reviewed his notes( IGE andnormal eosinophils)She was sent for PFT's( reports not available)CT Chest was done in December for ongoing symptomsHer last course of prednisone was in December. As per the patient she responds tohigher prednisone doses. She is on Symbicort, Budesonide inhaler, DUONEBS 4times/ day, and SingulairCurrently, cough is sporadic, worse when she is exposed to hay field ( house issurrounded by Soy, wheat and hay zarate)she reports chronic exertional dyspnea for many years. She can walk decentamount of distance on a level surface without any inclines or more than oneflight of steps seems to bother her breathing, no associated chest pain orangina likes symptomsBia was diagnosed with BRET earlier this year and started on C Pap she reportscompliance to itShe is retired, lives [place]. sHE used to work in [employer], taking/[employer]. 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 +RHINITIS AND postnasal dripNECK: Negative for lumps, goiter, pain and significant neck swellingRESPIRATORY: + cough, dyspnea and wheezingCARDIOVASCULAR: Negative for chest pain, leg swelling or palpitations.GI: no nausea, vomiting, or diarrhea and no heartburnGU: No history of dysuria, frequency or incontinence.MUSCULOSKE LETAL: Negative for joint pain or swelling, right arm in castSKIN: Negative for lesions, rash, and itching.HEMATOLOGY/LYMP HOLOGY: Negative for prolonged bleedingENDOCRINE: Negative for cold or heat intolerance.NEURO: No history of headaches, syncopePAST MEDICAL HISTORYDiagnosis Date- Allergic rhinitis- Bronchitis- Depression- Hypothyroidism (acquired)- Meningioma (HCC)- Obesity- BRET (obstructive sleep apnea)- Osteopenia- Peripheral neuropathy:History reviewed. No pertinent family history.: negative for asthma, COPD orchronic lung conditionsSocial HistorySubstance Use Topics- Smoking status: Former Smoker Packs/day: 0.50 Years: 55.00 Types: Cigarettes Quit date: 06/27/2013- Smokeless tobacco: Never Used Comment: Started at age 13- Alcohol use Yes Comment: occasionallyAllergies:A LLERGIESNo Known AllergiesCurrent Medications:SYMBICORT 160-4.5 mcg/actuation inhalermontelukast (SINGULAIR) 10 mg tabletalendronate (FOSAMAX) 70 mg tablet Take 70 mg by mouth once each week.albuterol HFA (PROAIR HFA) 90 mcg/actuation inhaler Inhale 2 Puffs asinstructed.riboflavin , vitamin B2, (VITAMIN B-2 ORAL) Take by mouth.ascorbic acid (VITAMIN C ORAL) Take by mouth.PULMICORT FLEXHALER 180 mcg/actuation aepb Inhale 1 Puff as instructed twicedaily.POTASSIUM CHLORIDE (KLOR-CON M20 ORAL) Take 1 tablet by mouth once daily.furosemide (LASIX) 40 mg tablet Take 40 mg by mouth once daily.levothyroxine (SYNTHROID) 175 mcg tablet Take 175 mcg by mouth daily beforebreakfast.traZODo ne (DESYREL) 50 mg tablet Take 150 mg by mouth daily at bedtime.ipratropium-alb uterol (DUONEB) 0.5 mg-3 mg(2.5 mg base)/3 mL nebu Inhale 3 mLas instructed every 6 hours as needed.meloxicam (MOBIC) 15 mg tablet Take 15 mg by mouth once daily.MULTIVIT ANDMINERALS/FERROUS FUM (MULTI VITAMIN ORAL) Take 1 tablet by mouth oncedaily.calcium carbonate-mag hydroxid 1,000-200 mg chew Take 1 tablet by mouth oncedaily.docusate sodium (COLACE) 100 mg capsule Take 100 mg by mouth twice daily.ALPRAZolam (XANAX) 0.5 mg tablet Take 0.5 mg by mouth at bedtime as needed.Patient takes 1/2 tablet in the morning and a whole tablet in the eveningPHYSICAL EXAM:Vital signs: BP 144/71 Pulse 64 Resp 12 Ht 5' 4 (1.63m) Wt 212 lb 12.8oz (96.5kg) SpO2 99[RA]% BMI 36.51 kg/(m2).GENERAL: Looks well. Oriented to time, place and person.EYES: No pallor. No icterusEAR/NOSE/MOUTH/T HROAT: No oral thrush.NECK: No thyroid enlargement.LUNGS: No respiratory distress.. Breath sounds reveal mild exp wheezing b/lCARDIAC: Heart sounds normalABDOMEN: No distention. Soft. No tenderness.EXTREMITIES: No edema, no clubbing or cyanosisSKIN: No rashes.LYMPH: No significant cervical lymphadenopathy.NEURO: No gross focal higher mental functionLab Results:CBC with diff:No results found for this basename:WBC,RBC,HB,HCT ,MCV,MCH,MCHC,RDWCV,PLT ,MPV,NEUTP,LYMPHP,MONOP ,EODINP,BASOP,ABSNE-UT, ABSLYM,ABSMONO,ABSEOSIN ,ABSBASONo results found for: GLUC, K, NA, CHLOR, CO2, CREAT, BUN, ANION, CA, TPROT,ALB, TBILI, ALKPHOS, AST, ALTXrays:CHEST: OSH 10/27/17Mild left lower lobe infiltrate. Right lung is clear. No increased pulmonaryvasculature.Im pression : LLL infiltrate atelectasis versus pneumonia11/05/17Interval improvement but not complete resolution of the left lower lobeopacity. Right lung is clear11/30/17Mild lingular opacity. Interval resolution of left lower lobe infiltrates. Noincreased pulmonary vasculature.Ct chest with contrast 12/29/17atelectasis in the posterior left lower lung base, lungs otherwise clear nomasses effusion or pneumothorax. Vasculature is normal. Mediastinum is normal.No bony lesions or fracture.Large lesion within the left breast demonstrating an oily fluid level and RIMcalcifications also noted on a prior mammogramPERSONALLY reviewed lung and mediastinal windows and agreeIn addition, there is very mild bronchiectasis along with the left lower lungscarring areaPFTImpressionMild air flow obstructionNo significant airflow obstructionDLCO is normalFVC ?2.96 ? ? ?2.27 ?3.65 ? ? ?2.92 ? ? 99 ? ? ?3.01 ? ?102 ? 3??FEV 1 ?2.23 ? ? ?1.65 ?2.82 ? ? ?1.78 ? ? 79 ? ? ?1.78 ? ? 80 ? 0 ?FEV1%F ? ? ?75.72 ? ? 65.93 85.52 ? ? 60.74 ? ? 80 ? ? 59.40 ? ? 78 ?-2 ?FEV 2 ?2.30 ? ? ?1.56 ?3.04 ? ? ?2.14 ? ? 93 ? ? ?2.16 ? ? 94 ? 1 ?FEV 3 ?2.61 ? ? ?1.99 ?3.23 ? ? ?2.33 ? ? 89 ? ? ?2.36 ? ? 90 ? 1 ?DLCO ?20.39 ? ? 13.88 26.90 ? ? 16.23 ? ? 80 ?DL/VA ?4.27 ? ? ?2.95 ?5.59 ? ? ?3.67 ? ? 86 ?VA ? 5.06 ? ? ?3.96 ?6.16 ? ? ?4.43 ? ? 88 ?Assessment/Plan:(R05) Chronic cough (primary encounter diagnosis)(J44.9) Chronic obstructive pulmonary disease, unspecified COPD type (HCC)(Z87.891) Former smokerPlan:SPIROMETRY WITH DILATOR IF OBSTRUCTED, LUNG DIFFUSION CAPACITY (DLCO) was donetodayShows mild airflow obstruction with no reversibilityShe is optimized on Symbicort and MICHAELA via NEB / MDIContinue SingulairAdd Roflumilast start low dose, then increase to 500 mcg from next month -possible side effects discussedWe Can consider allergy testing in future if neededRTC In 3 months or sooner prnDecember is ok too-Renata Leif, MDDuring this patient visit I have spent approximately 30 minutes out of 60 incounseling regarding cardiovascular risk reduction, treatment options,medications and test results and coordinating care.Referring Provider: CHUCHO SARAVIA [[id number]]Allergies As of Date: 04/11/2018(No Known Allergies)Date Reviewed: 04/11/2018Reviewed by: Denice (Zoila Pollack - Fully AssessedReason for Visit: New Patient [172] Cough [28] Shortness of Breath [227]Primary Visit Diagnosis:Chronic cough [R05] Other Visit Diagnoses:Chronic obstructive pulmonary disease, unspecified COPD type (HCC) [J44.9] Former smoker [Z87.891]Order(s):PULMI OTTONIEL FLEXHALER 180 mcg/actuation aepbInhale 1 Puff as instructed twice daily.Disp: 1 InhalerRfl: 3 SPIROMETRY WITH DILATOR IF OBSTRUCTED [5133616] Order #: [id number] FUTURE LUNG DIFFUSION CAPACITY (DLCO) [0027098] Order #: [id number] FUTURE roflumilast (DALIRESP) 250 mcg tabTake 250 mcg by mouth once daily.Disp: 30 tabletRfl: 0Prescriptions as of 04/11/2018 Sig: SYMBICORT 160 MCG-4.5 MCG/ACT* MONTELUKAST 10 MG TABLET ALENDRONATE 70 MG TABLET Take 70 mg by mouth once each* ALBUTEROL SULFATE HFA 90 MCG/* Inhale 2 Puffs as instructed. VITAMIN B-2 ORAL Take by mouth. VITAMIN C ORAL Take by mouth. PULMICORT FLEXHALER 180 MCG/A* Inhale 1 Puff as instructed t* KLOR-CON M20 ORAL Take 1 tablet by mouth once d* FUROSEMIDE 40 MG TABLET Take 40 mg by mouth once emily* LEVOTHYROXINE 175 MCG TABLET Take 175 mcg by mouth daily b* TRAZODONE 50 MG TABLET Take 150 mg by mouth daily at* IPRATROPIUM-ALBUTEROL 0.5 MG-* Inhale 3 mL as instructed funmi* MELOXICAM 15 MG TABLET Take 15 mg by mouth once emily* MULTI VITAMIN ORAL Take 1 tablet by mouth once d* CALCIUM CARBONATE 1,000 MG-MA* Take 1 tablet by mouth once d* DOCUSATE SODIUM 100 MG CAPSULE Take 100 mg by mouth twice da* ALPRAZOLAM 0.5 MG TABLET Take 0.5 mg by mouth at bedti* ROFLUMILAST 250 MCG TABLET Take 250 mcg by mouth once da*Problem List As Of Date 04/11/2018 Noted Resolved Acquired hypothyroidism [E03.9] INVALID FOR* Trochanteric bursitis of right hip [M70.61] INVALID FOR* Status post total hip replacement, right [Z96.6*INVALID FOR* Status post knee surgery [Z98.890] INVALID FOR* Simple chronic bronchitis (HCC) [J41.0] INVALID FOR* Anxiety [F41.9] INVALID FOR* Obesity [E66.9] INVALID FOR*Prescriptions ordered this encounter Disp Refills Start End PULMICORT FLEXHALER 180 MCG/ACTUATIO* 1 In* 3 04/11/2018 Class: Med Update Route: INHALATION Sig: Inhale 1 Puff as instructed twice daily. ROFLUMILAST 250 MCG TABLET 30 t* 0 04/11/2018 Route: ORAL Sig: Take 250 mcg by mouth once daily.Medications Discontinued During This Encounter fluticasone-salmeterol (ADVAIR) 500-* 04/11/2018 Class: Historical Med Route: INHALATION Sig: Inhale 1 Puff as instructed twice daily. Disc: Course of therapy completed budesonide (PULMICORT INHALATION) 04/11/2018 Class: Historical Med Route: INHALATION Sig: Inhale as instructed. Disc: Duplicate Entry PULMICORT FLEXHALER 180 mcg/actuatio* 02/09/2018 04/11/2018 Class: Historical Med Sig: Disc: Reason for discontinue is not on file.Follow-up and Disposition History RecordedEncounter Number: [id number] Status:Closed by RENATA YADAV MD on 04/11/18 [facility] 04-11-2018 CNPN Telephone (PULMAV) TIANA BOYLE ([id number]) 1945 FDate Time Provider Department04/11/18 RENATA YADAV PULCHAYO During your visit today, we recorded the following information about you:Kiesha Hairston, RN, RN 04/11/2018 3:38 PM SignedPt just seen in the office todayCalling to inform the prescriptions for Pulmicort and Roflumilast never made itto her PharmacyAsking if these can be RESENT pleaseVerified correct pharmacy is [facility] needed pt's call back # [phone] Andrews Ma 04/11/2018 3:56 PM SignedJust completed PA for Daliresp. Waiting on response. Please advise aboutPulmicort. According to med list it was only a med update.Kay Pérez Ma 04/11/2018 4:28 PM SignedPA was approved. Called and informed pt.Kay Dasilva RN 04/12/2018 10:59 AM SignedPatient calling back- asking about her pulmicort prescriptionStates directions were changed but she is still using it?Correct pharmacy Lisandra Yadav MD 04/12/2018 11:47 AM SignedShe is taking 1 puff 2 times/.day.New prescription Dorene Diez Ma 04/12/2018 12:01 PM SignedCalled and informed pt of below message.Kay Manzanareskelly Smart As of Date: 04/11/2018(No Known Allergies)Date Reviewed: 04/11/2018Reviewed by: Zoila Santa (Tech) - Fully AssessedReason for Visit: Medication Issue [Other]Primary Visit Diagnosis:Simple chronic bronchitis (HCC) [J41.0]Order(s):PULMICO RT FLEXHALER 180 mcg/actuation aepbInhale 1 Puff as instructed twice daily.Disp: 1 InhalerRfl: 3Prescriptions as of 04/11/2018 Sig: PULMICORT FLEXHALER 180 MCG/A* Inhale 1 Puff as instructed t* SYMBICORT 160 MCG-4.5 MCG/ACT* MONTELUKAST 10 MG TABLET ALENDRONATE 70 MG TABLET Take 70 mg by mouth once each* ALBUTEROL SULFATE HFA 90 MCG/* Inhale 2 Puffs as instructed. VITAMIN B-2 ORAL Take by mouth. VITAMIN C ORAL Take by mouth. ROFLUMILAST 250 MCG TABLET Take 250 mcg by mouth once da* KLOR-CON M20 ORAL Take 1 tablet by mouth once d* FUROSEMIDE 40 MG TABLET Take 40 mg by mouth once emily* LEVOTHYROXINE 175 MCG TABLET Take 175 mcg by mouth daily b* TRAZODONE 50 MG TABLET Take 150 mg by mouth daily at* IPRATROPIUM-ALBUTEROL 0.5 MG-* Inhale 3 mL as instructed funmi* MELOXICAM 15 MG TABLET Take 15 mg by mouth once emily* MULTI VITAMIN ORAL Take 1 tablet by mouth once d* CALCIUM CARBONATE 1,000 MG-MA* Take 1 tablet by mouth once d* DOCUSATE SODIUM 100 MG CAPSULE Take 100 mg by mouth twice da* ALPRAZOLAM 0.5 MG TABLET Take 0.5 mg by mouth at bedti*Problem List As Of Date 04/11/2018 Noted Resolved Acquired hypothyroidism [E03.9] INVALID FOR* Trochanteric bursitis of right hip [M70.61] INVALID FOR* Status post total hip replacement, right [Z96.6*INVALID FOR* Status post knee surgery [Z98.890] INVALID FOR* Simple chronic bronchitis (HCC) [J41.0] INVALID FOR* Anxiety [F41.9] INVALID FOR* Obesity [E66.9] INVALID FOR*Prescriptions ordered this encounter Disp Refills Start End PULMICORT FLEXHALER 180 MCG/ACTUATIO* 1 In* 3 04/12/2018 Route: INHALATION Sig: Inhale 1 Puff as instructed twice daily.Medications Discontinued During This Encounter PULMICORT FLEXHALER 180 mcg/actuatio* 1 In* 3 04/11/2018 04/12/2018 Class: Med Update Route: INHALATION Sig: Inhale 1 Puff as instructed twice daily. Disc: Reason for discontinue is not on file. Status:Closed by RENATA YADAV MD on 04/12/18 [facility] PROGRESSon 04-11-2018 Protein HNO ID: [id number]: Renata SuriService: (none)Author Type: PhysicianType: Progress NotesFiled: 04/11/2018 11:13 AMNote Text:Consultation requested by Manjit Marte for an opinion regarding Chronic coughand COPD. My final recommendations will be communicated back to therequesting physician by way of shared Medical record or letter torequesting physician via US mail.Tiana Louis is a 73 year old female who presents for New Patient; Cough;and Shortness of Breath. She comes to the clinic accompanied by Lashonda:Ms. Louis is a 73 year old female former smoker with history of peripheralneuropathy, hypothyroidism, chronic depression, osteopenia, OA,meningioma, BRET, severe on CPAP, Allergic rhinitis. Obesity, pneumonia /bronchitis.She comes for second opinion about her respiratory problemsShe reports a chronic cough and dyspnea for al least 15 years. She wassmoking at the onset of symptoms and thought it was a smokers' cough. Itwas productive with think yellow colored mucus. She was on Symbicort forThis. Many years ago, she was on Spiriva.In 2012, she quit smoking, but her cough was more noticeable.In 08/2017, she got sick with repiratory infection, She was told she hasbronchitis. She returned with prednisone and antibiotics. Her coughimproved for a few days while she was on prednisone but then got worseagain. She underwent a chest x-ray in September which showed a small leftlower lobe pneumonia. She was again treated with another course ofantibiotics. She was also seen by Uphol[employer] Co[employer] Inspector Dr. CARRASCO, I havereviewed his notes( IGE and normal eosinophils)She was sent for PFT's( reports not available)CT Chest was done in December for ongoing symptomsHer last course of prednisone was in December. As per the patient sheresponds to higher prednisone doses. She is on Symbicort, Budesonideinhaler, DUONEBS 4 times/ day, and SingulairCurrently, cough is sporadic, worse when she is exposed to hay field (house is surrounded by Soy, wheat and hay zarate)she reports chronic exertional dyspnea for many years. She can walkdecent amount of distance on a level surface without any inclines or morethan one flight of steps seems to bother her breathing, no associatedchest pain or angina likes symptomsShe was diagnosed with BRET earlier this year and started on C Pap shereports compliance to itShe is retired, lives with her in [place]. sHE used to work in [employer], [email or web address]. 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 +RHINITIS AND postnasal dripNECK: Negative for lumps, goiter, pain and significant neck swellingRESPIRATORY: + cough, dyspnea and wheezingCARDIOVASCULAR: Negative for chest pain, leg swelling or palpitations.GI: no nausea, vomiting, or diarrhea and no heartburnGU: No history of dysuria, frequency or incontinence.MUSCULOSKE LETAL: Negative for joint pain or swelling, right arm in castSKIN: Negative for lesions, rash, and itching.HEMATOLOGY/LYMP HOLOGY: Negative for prolonged bleedingENDOCRINE: Negative for cold or heat intolerance.NEURO: No history of headaches, syncopePAST MEDICAL HISTORYDiagnosis Date- Allergic rhinitis- Bronchitis- Depression- Hypothyroidism (acquired)- Meningioma (HCC)- Obesity- BRET (obstructive sleep apnea)- Osteopenia- Peripheral neuropathy:History reviewed. No pertinent family history.: negative for asthma, COPDor chronic lung conditionsSocial HistorySubstance Use Topics- Smoking status: Former Smoker Packs/day: 0.50 Years: 55.00 Types: Cigarettes Quit date: 06/27/2013- Smokeless tobacco: Never Used Comment: Started at age 13- Alcohol use Yes Comment: occasionallyAllergies:A LLERGIESNo Known AllergiesCurrent Medications:SYMBICORT 160-4.5 mcg/actuation inhalermontelukast (SINGULAIR) 10 mg tabletalendronate (FOSAMAX) 70 mg tablet Take 70 mg by mouth once each week.albuterol HFA (PROAIR HFA) 90 mcg/actuation inhaler Inhale 2 Puffs asinstructed.riboflavin , vitamin B2, (VITAMIN B-2 ORAL) Take by mouth.ascorbic acid (VITAMIN C ORAL) Take by mouth.PULMICORT FLEXHALER 180 mcg/actuation aepb Inhale 1 Puff as instructedtwice daily.POTASSIUM CHLORIDE (KLOR-CON M20 ORAL) Take 1 tablet by mouth once daily.furosemide (LASIX) 40 mg tablet Take 40 mg by mouth once daily.levothyroxine (SYNTHROID) 175 mcg tablet Take 175 mcg by mouth dailybefore breakfast.traZODone (DESYREL) 50 mg tablet Take 150 mg by mouth daily at bedtime.ipratropium-alb uterol (DUONEB) 0.5 mg-3 mg(2.5 mg base)/3 mL nebu Inhale 3mL as instructed every 6 hours as needed.meloxicam (MOBIC) 15 mg tablet Take 15 mg by mouth once daily.MULTIVIT ANDMINERALS/FERROUS FUM (MULTI VITAMIN ORAL) Take 1 tablet by mouthonce daily.calcium carbonate-mag hydroxid 1,000-200 mg chew Take 1 tablet by mouthonce daily.docusate sodium (COLACE) 100 mg capsule Take 100 mg by mouth twice daily.ALPRAZolam (XANAX) 0.5 mg tablet Take 0.5 mg by mouth at bedtime asneeded. Patient takes 1/2 tablet in the morning and a whole tablet in theeveningPHYSICAL EXAM:Vital signs: BP 144/71 Pulse 64 Resp 12 Ht 5' 4 (1.63m) Wt 212 lb12.8 oz (96.5kg) SpO2 99[RA]% BMI 36.51 kg/(m2).GENERAL: Looks well. Oriented to time, place and person.EYES: No pallor. No icterusEAR/NOSE/MOUTH/T HROAT: No oral thrush.NECK: No thyroid enlargement.LUNGS: No respiratory distress.. Breath sounds reveal mild exp wheezingb/lCARDIAC: Heart sounds normalABDOMEN: No distention. Soft. No tenderness.EXTREMITIES: No edema, no clubbing or cyanosisSKIN: No rashes.LYMPH: No significant cervical lymphadenopathy.NEURO: No gross focal higher mental functionLab Results:CBC with diff:No results found for this basename:WBC,RBC,HB,HCT ,MCV,MCH,MCHC,RDWCV,PLT ,MPV,NEUTP,LYMPHP,MONOP ,EODINP,BASOP,ABSNEUT,A BSLYM,ABSMONO,ABSEOSIN, ABSBASONo results found for: GLUC, K, NA, CHLOR, CO2, CREAT, BUN, ANION, CA,TPROT, ALB, TBILI, ALKPHOS, AST, ALTXrays:CHEST: OSH 10/27/17Mild left lower lobe infiltrate. Right lung is clear. No increasedpulmonary vasculature.Impression : LLL infiltrate atelectasis versus pneumonia11/05/17Interval improvement but not complete resolution of the left lower lobeopacity. Right lung is clear11/30/17Mild lingular opacity. Interval resolution of left lower lobeinfiltrates. No increased pulmonary vasculature.Ct chest with contrast 12/29/17atelectasis in the posterior left lower lung base, lungs otherwise clearno masses effusion or pneumothorax. Vasculature is normal. Mediastinumis normal.No bony lesions or fracture.Large lesion within the left breast demonstrating an oily fluid level andRIM calcifications also noted on a prior mammogramPERSONALLY reviewed lung and mediastinal windows and agreeIn addition, there is very mild bronchiectasis along with the left lowerlung scarring areaPFTImpressionMild air flow obstructionNo significant airflow obstructionDLCO is normalFVC ?2.96 ? ? ?2.27 ?3.65 ? ? ?2.92 ? ? 99 ? ? ?3.01 ? ?102 ? 3??FEV 1 ?2.23 ? ? ?1.65 ?2.82 ? ? ?1.78 ? ? 79 ? ? ?1.78 ? ? 80 ? 0 ?FEV1%F ? ? ?75.72 ? ? 65.93 85.52 ? ? 60.74 ? ? 80 ? ? 59.40 ? ? 78 ?-2 ?FEV 2 ?2.30 ? ? ?1.56 ?3.04 ? ? ?2.14 ? ? 93 ? ? ?2.16 ? ? 94 ? 1 ?FEV 3 ?2.61 ? ? ?1.99 ?3.23 ? ? ?2.33 ? ? 89 ? ? ?2.36 ? ? 90 ? 1 ?DLCO ?20.39 ? ? 13.88 26.90 ? ? 16.23 ? ? 80 ?DL/VA ?4.27 ? ? ?2.95 ?5.59 ? ? ?3.67 ? ? 86 ?VA ? 5.06 ? ? ?3.96 ?6.16 ? ? ?4.43 ? ? 88 ?Assessment/Plan:(R05) Chronic cough (primary encounter diagnosis)(J44.9) Chronic obstructive pulmonary disease, unspecified COPD type (HCC)(Z87.891) Former smokerPlan:SPIROMETRY WITH DILATOR IF OBSTRUCTED, LUNG DIFFUSION CAPACITY (DLCO) wasdone todayShows mild airflow obstruction with no reversibilityShe is optimized on Symbicort and MICHAELA via NEB / MDIContinue SingulairAdd Roflumilast start low dose, then increase to 500 mcg from next month -possible side effects discussedWe Can consider allergy testing in future if neededRTC In 3 months or sooner prnDecember is ok too-Renata Leif, MDDuring this patient visit I have spent approximately 30 minutes out of 60in counseling regarding cardiovascular risk reduction, treatment options,medications and test results and coordinating care. [facility] SR-CT CHEST W CON IMPORTon 0 12-29-2017 SR-CT CHEST W CON IMPORT Images were obtained outside of [facility] [id number] Normal [facility] OT-XR CHEST 2 V IMPORTon OT-XR CHEST 2 V IMPORT Images were obtai donald outside of [facility] [id number] [facility] OT-XR CHEST 2 V IMPORTon OT-XR CHEST 2 V IMPORT Images were obtai donald outside of [facility] [id number] [facility] OT-XR CHEST 2 V IMPORTon OT-XR CHEST 2 V IMPORT Images were obtai donald outside of [facility] [id number] Normal [facility] Vital Signs Date Time Vital Sign Value Performing Clinician Facility 03-31-2024 09:32-0400 Body height 165.1 cm [facility] 03-31-2024 09:32-0400 Body mass index (BMI) [Ratio] 30.9 kg/m2 [facility] 03-31-2024 09:32-0400 Body weight 84.42 kg [facility] 03-31-2024 09:32-0400 Diastolic blood pressure 73 mm[Hg] [facility] 03-31-2024 09:32-0400 Heart rate 52 /min [facility] 03-31-2024 09:32-0400 Respiratory rate 16 /min [facility] 03-31-2024 09:32-0400 Systolic blood pressure 147 mm[Hg] [facility] 01-14-2024 09:45-0400 Body height 165.1 cm DO Chucho Ball Work Phone: [facility] 01-14-2024 09:45-0400 Body mass index (BMI) [Ratio] 30.4 kg/m2 DO Chucho Ball Work Phone: [facility] 01-14-2024 09:45-0400 Body weight 82.8 kg DO Chucho Ball Work Phone: [facility] 01-14-2024 09:45-0400 Diastolic blood pressure 88 mm[Hg] DO Chucho Ball Work Phone: [facility] 01-14-2024 09:45-0400 Heart rate 67 /min DO Chucho Ball Work Phone: [facility] 01-14-2024 09:45-0400 Respiratory rate 20 /min DO Chucho Ball Work Phone: [facility] 01-14-2024 09:45-0400 Systolic blood pressure 157 mm[Hg] DO Chucho Ball Work Phone: [facility] 12-21-2023 10:46-0400 Body height 165.1 cm DO Chucho Ball Work Phone: [facility] 12-21-2023 10:46-0400 Body mass index (BMI) [Ratio] 30.4 kg/m2 DO Chucho Ball Work Phone: [facility] 12-21-2023 10:46-0400 Body weight 83 kg DO Chucho Ball Work Phone: [facility] 12-21-2023 10:46-0400 Diastolic blood pressure 83 mm[Hg] DO Chucho Ball Work Phone: [facility] 12-21-2023 10:46-0400 Heart rate 69 /min DO Chucho Ball Work Phone: [facility] 12-21-2023 10:46-0400 Respiratory rate 16 /min DO Chucho Ball Work Phone: [facility] 12-21-2023 10:46-0400 Systolic blood pressure 158 mm[Hg] DO Chucho Ball Work Phone: [facility] 11-03-2023 08:00-0500 Body height 165.1 cm Coy Cassidy II Other [facility] Other 11-03-2023 08:00-0500 Body mass index (BMI) [Ratio] 30.45 kg/m2 Coy Cassidy II Other [facility] Other 11-03-2023 08:00-0500 Body weight 83.01 kg Coy Cassidy II Other [facility] Other 10-04-2023 13:30-0500 Body height 165.1 cm DO Chucho Ball Work Phone: [facility] 10-04-2023 13:30-0500 Body weight 83 kg DO Chucho Ball Work Phone: [facility] 10-04-2023 13:30-0500 Diastolic blood pressure 74 mm[Hg] DO Chucho Ball Work Phone: [facility] 10-04-2023 13:30-0500 Systolic blood pressure 130 mm[Hg] DO Chucho Ball Work Phone: [facility] 02-24-2023 11:50-0400 Diastolic blood pressure 81 mm[Hg] DO Chucho Ball Work Phone: [facility] 02-24-2023 11:50-0400 Heart rate 62 /min DO Chucho Ball Work Phone: [facility] 02-24-2023 11:50-0400 Respiratory rate 16 /min DO Chucho Ball Work Phone: [facility] 02-24-2023 11:50-0400 SaO2% (BldA) [Mass fraction] 95 % DO Chucho Ball Work Phone: [facility] 02-24-2023 11:50-0400 Systolic blood pressure 154 mm[Hg] DO Chucho Ball Work Phone: [facility] 02-24-2023 11:35-0400 Inhaled oxygen flow rate 1 L/min DO Chucho Ball Work Phone: [facility] 02-24-2023 10:54-0400 Body temperature 97 [degF] DO Chucho Ball Work Phone: [facility] 02-24-2023 08:22-0400 Body height 160.02 cm DO Chucho Ball Work Phone: [facility] 02-24-2023 08:22-0400 Body mass index (BMI) [Ratio] 32.9 kg/m2 DO Chucho Ball Work Phone: [facility] 02-24-2023 08:22-0400 Body weight 84.4 kg DO Chucho Ball Work Phone: [facility] 02-09-2023 10:00-0400 Body height 165.1 cm Barry Olexa Other [facility] Other 01-25-2023 14:45-0400 Body height 165.1 cm Barry Olexa Other [facility] Other 01-25-2023 14:45-0400 Body mass index (BMI) [Ratio] 30.78 kg/m2 Barry Olexa Other [facility] Other 01-25-2023 14:45-0400 Body weight 83.92 kg Barry Olexa Other [facility] Other 12-14-2022 11:00-0400 Body height 165.1 cm Chucho Ball Other [facility] Other 12-14-2022 11:00-0400 Body mass index (BMI) [Ratio] 30.82 kg/m2 Chucho Ball Other [facility] Other 12-14-2022 11:00-0400 Body weight 84.01 kg Chucho Ball Other [facility] Other 12-14-2022 11:00-0400 Diastolic blood pressure 84 mm[Hg] Chucho Ball Other [facility] Other 12-14-2022 11:00-0400 Respiratory rate 20 /min Chucho Ball Other [facility] Other 12-14-2022 11:00-0400 Systolic blood pressure 122 mm[Hg] Chucho Ball Other [facility] Other 10-29-2022 11:30-0500 Body height 165.1 cm Barry Valenzuela Other [facility] Other 10-29-2022 11:30-0500 Body mass index (BMI) [Ratio] 30.78 kg/m2 Barry Felter Other [facility] Other 10-29-2022 11:30-0500 Body weight 83.92 kg Barry Felter Other [facility] Other 10-23-2022 10:40-0500 Body height 165.1 cm Benigno Kennedy Other [facility] Other 10-23-2022 10:40-0500 Body mass index (BMI) [Ratio] 30.78 kg/m2 Benigno Kennedy Other [facility] Other 10-23-2022 10:40-0500 Body weight 83.92 kg Benigno Kennedy Other [facility] Other 08-27-2022 07:00-0500 Body height 162.56 cm DO Chucho Ball Work Phone: [facility] 08-27-2022 07:00-0500 Body weight 81.64 kg DO Chucho Ball Work Phone: [facility] 08-18-2022 11:20-0500 Body height 165.1 cm Benigno Kennedy Other [facility] Other 03-11-2022 12:00-0400 Body height 165.1 cm Barry Valenzuela Other [facility] Other 03-11-2022 12:00-0400 Body mass index (BMI) [Ratio] 30.28 kg/m2 Barry Felter Other [facility] Other 03-11-2022 12:00-0400 Body weight 82.56 kg Barry Felter Other [facility] Other 02-17-2022 12:20-0400 Body height 165.1 cm Benigon Kennedy Other [facility] Other 02-17-2022 12:20-0400 Body mass index (BMI) [Ratio] 30.28 kg/m2 Benigno Kennedy Other [facility] Other 02-17-2022 12:20-0400 Body weight 82.56 kg Benigno Kennedy Other [facility] Other 01-05-2022 10:45-0400 Body height 165.1 cm Barry Felter Other [facility] Other 01-05-2022 10:45-0400 Body mass index (BMI) [Ratio] 31.28 kg/m2 Barry Felter Other [facility] Other 01-05-2022 10:45-0400 Body weight 85.28 kg Barry Felter Other [facility] Other 11-07-2021 09:20-0500 Body height 165.1 cm Benigno Kennedy Other [facility] Other 11-07-2021 09:20-0500 Body mass index (BMI) [Ratio] 31.45 kg/m2 Benigno Kennedy Other [facility] Other 11-07-2021 09:20-0500 Body weight 85.73 kg Benigno Kennedy Other [facility] Other 11-03-2021 11:15-0500 Body height 165.1 cm Barry Valenzuela Other [facility] Other 11-03-2021 11:15-0500 Body mass index (BMI) [Ratio] 31.45 kg/m2 Barry Felter Other [facility] Other 11-03-2021 11:15-0500 Body weight 85.73 kg Barry Reeser Other [facility] Other 09-18-2021 16:20-0500 Body height 165.1 cm Benigno Kennedy Other [facility] Other 09-18-2021 16:20-0500 Body mass index (BMI) [Ratio] 31.61 kg/m2 Benigno Kennedy Other [facility] Other 09-18-2021 16:20-0500 Body weight 86.18 kg Benigno Kennedy Other [facility] Other 09-18-2021 16:20-0500 Diastolic blood pressure 75 mm[Hg] Benigno Kennedy Other [facility] Other 09-18-2021 16:20-0500 Systolic blood pressure 129 mm[Hg] Benigno Kennedy Other [facility] Other 09-11-2021 11:45-0500 Body height 165.1 cm Barry Valenzuela Other [facility] Other 09-11-2021 11:45-0500 Body mass index (BMI) [Ratio] 31.61 kg/m2 Barry Felter Other [facility] Other 09-11-2021 11:45-0500 Body weight 86.18 kg Barry Valenzuela Other [facility] Other 09-02-2021 15:00-0500 Body height 165.1 cm Barry Reeser Other [facility] Other 09-02-2021 15:00-0500 Body mass index (BMI) [Ratio] 31.61 kg/m2 Barry Reeser Other [facility] Other 09-02-2021 15:00-0500 Body weight 86.18 kg Barry Reeser Other [facility] Other 08-14-2021 17:30-0500 Body height 165.1 cm Benigno Kennedy Other [facility] Other 08-14-2021 17:30-0500 Body mass index (BMI) [Ratio] 29.95 kg/m2 Benigno Kennedy Other [facility] Other 08-14-2021 17:30-0500 Body weight 81.65 kg Benigno Kennedy Other [facility] Other Encounters Encounter Date Encounter Type Care Provider Facility Start: 03-31-2024 End: 03-31-2024 ambulatory [facility] Work Phone: Start: 03-31-2024 End: 03-31-2024 Patient encounter procedure [facility] Work Phone: Start: 03-16-2024 End: 03-16-2024 ambulatory AMISHA MUNOZ Not Available Start: 03-13-2024 End: 03-13-2024 ambulatory [facility] Work Phone: Start: 03-13-2024 End: 03-13-2024 Patient encounter procedure [facility] Work Phone: Start: 02-28-2024 End: 02-28-2024 ambulatory [facility] Work Phone: Start: 02-28-2024 End: 02-28-2024 Patient encounter procedure [facility] Work Phone: Start: 02-10-2024 End: 02-10-2024 Patient encounter procedure [facility] Work Phone: Start: 01-31-2024 Non-patient / Non-visit [facility] Work Phone: Start: 01-14-2024 End: 01-14-2024 ambulatory DO Chucho Ball Work Phone: [facility] Work Phone: Start: 01-14-2024 End: 01-14-2024 Patient encounter procedure DO Chucho Ball Work Phone: [facility] Work Phone: Start: 01-12-2024 End: 01-12-2024 ambulatory DO Chucho Ball Work Phone: [facility] Work Phone: Start: 01-12-2024 End: 01-12-2024 Patient encounter procedure DO Chucho Ball Work Phone: [facility] Work Phone: Start: 01-10-2024 End: 01-10-2024 ambulatory ESTHER PALMER Not Available Start: 01-05-2024 End: 01-05-2024 ambulatory DO Chucho Ball Work Phone: [facility] Work Phone: Start: 01-05-2024 End: 01-05-2024 Patient encounter procedure DO Chucho Ball Work Phone: [facility] Work Phone: Start: 01-05-2024 Non-patient / Non-visit DO Abhishek valderrama Ball Work Phone: [facility] Work Phone: Start: 01-04-2024 End: 01-04-2024 ambulatory AMISHA MUNOZ Not Available Start: 12-21-2023 End: 12-21-2023 ambulatory DO Chucho Ball Work Phone: [facility] Work Phone: Start: 12-21-2023 End: 12-21-2023 Patient encounter procedure DO Chucho Ball Work Phone: [facility] Work Phone: Start: 12-13-2023 End: 12-13-2023 ambulatory DO Chucho Ball Work Phone: [facility] Work Phone: Start: 12-13-2023 End: 12-13-2023 Patient encounter procedure DO Chucho Ball Work Phone: [facility] Work Phone: Start: 12-09-2023 End: 12-09-2023 ambulatory DO Chucho Ball Work Phone: [facility] Work Phone: Start: 12-09-2023 End: 12-09-2023 Patient encounter procedure DO Chucho Ball Work Phone: [facility] Work Phone: Start: 12-01-2023 End: 12-01-2023 Patient encounter procedure DO Chucho Ball Work Phone: [facility] Work Phone: Start: 12-01-2023 Non-patient / Non-visit DO Abhishek valderrama Ball Work Phone: [facility] Work Phone: Start: 11-25-2023 End: 11-25-2023 Patient encounter procedure DO Chucho Saravia Work Phone: [facility] Work Phone: Start: 11-11-2023 Non-patient / Non-visit DO Abhishek Saravia Work Phone: [facility] Work Phone: Start: 11-09-2023 End: 11-09-2023 ambulatory Chucho Saravia Other [facility] Other Start: 11-09-2023 Telephone encounter Chucho Saravia [facility] Start: 11-03-2023 Office outpatient vi sit 25 minutes Coy Cassidy II [facility] Start: 11-03-2023 End: 11-03-2023 ambulatory Coy Cassidy II Facility:[facility] Start: 11-03-2023 End: 11-03-2023 ambulatory DO Chucho Saravia Work Phone: [facility] Work Phone: Start: 11-03-2023 End: 11-03-2023 Patient encounter procedure DO Chucho Saravia Work Phone: [facility] Start: 10-11-2023 End: 10-11-2023 ambulatory Chucho Saravia Other [facility] Other Start: 10-11-2023 Telephone encounter Chucho Saravia [facility] Start: 10-04-2023 End: 10-04-2023 Patient encounter procedure DO Chucho Saravia Work Phone: [facility] Work Phone: Start: 09-24-2023 End: 09-24-2023 ambulatory AMISHA MUNOZ Not Available Start: 07-13-2023 Office outpatient vi sit 15 minutes Barry Jorge [facility] Start: 07-13-2023 End: 07-13-2023 ambulatory Barry Olexa Facility:[facility] Start: 07-13-2023 End: 07-13-2023 ambulatory DO Chucho Saravia Work Phone: [facility] Work Phone: Start: 07-13-2023 End: 07-13-2023 Patient encounter procedure DO Chucho Saravia Work Phone: [facility] Start: 07-09-2023 End: 07-09-2023 ambulatory Chucho Saravia Other [facility] Other Start: 07-09-2023 Telephone encounter [facility] Start: 07-08-2023 End: 07-08-2023 ambulatory Referral Self Facility:[facility] Start: 07-08-2023 End: 07-08-2023 ambulatory DO Chucho Saravia Work Phone: [facility] Work Phone: Start: 07-08-2023 End: 07-08-2023 Patient encounter procedure DO Chucho Saravia Work Phone: [facility] Work Phone: Start: 07-06-2023 End: 07-06-2023 ambulatory Barry Valenzuela Other [facility] Other Start: 07-06-2023 Office outpatient vi sit 25 minutes Barry WOOD[facility] Start: 07-06-2023 Telephone encounter Barry SALGADO G [facility] Start: 06-25-2023 End: 06-25-2023 ambulatory Chucho Saravia Facility:[facility] Start: 06-25-2023 Registered Recurring DO Benjam in Ball Work Phone: [facility] [place] Start: 06-08-2023 Office outpatient vi sit 15 minutes Barry Patel [facility] Start: 06-08-2023 End: 06-08-2023 ambulatory DO Chucho Ball Work Phone: [facility] Work Phone: Start: 06-08-2023 End: 06-08-2023 Patient encounter procedure DO Chucho Ball Work Phone: [facility] Start: 06-07-2023 Registered Recurring DO Benjam in Ball Work Phone: [facility]-Physical Therapy [place] Start: 05-18-2023 End: 05-18-2023 ambulatory Chucho Ball Other [facility] Other Start: 05-18-2023 Telephone encounter Chucho Saravia [facility] Start: 05-14-2023 End: 05-14-2023 ambulatory Chucho Ball Other [facility] Other Start: 05-14-2023 Telephone encounter Chucho Saravia [facility] Start: 04-12-2023 Postop follow up vis it related to original px Barry Vegaxa [facility] Start: 04-12-2023 End: 04-12-2023 ambulatory DO Chucho Ball Work Phone: [facility] Work Phone: Start: 04-12-2023 End: 04-12-2023 Patient encounter procedure DO Chucho Ball Work Phone: [facility] Start: 03-08-2023 End: 03-08-2023 ambulatory Barry Olexa Facility:[facility] Start: 03-08-2023 End: 03-08-2023 Patient encounter procedure DO Chucho Ball Work Phone: [facility] Start: 03-02-2023 End: 03-02-2023 ambulatory Chucho Ball Other [facility] Other Start: 03-02-2023 Telephone encounter Chucho Saravia [facility] Start: 02-26-2023 End: 02-26-2023 ambulatory Chucho Ball Other [facility] Other Start: 02-26-2023 Office outpatient vi sit 15 minutes Chucho Saravia [facility] Start: 02-26-2023 Telephone encounter Chucho Saravia FP [facility] Start: 02-25-2023 End: 02-25-2023 ambulatory Barry Olexa Other [facility] Other Start: 02-25-2023 Telephone encounter Barry Garyxa [facility] Start: 02-24-2023 End: 02-24-2023 ambulatory Barry Olexa Facility:[facility] Start: 02-24-2023 End: 02-24-2023 Admission to same day surgery center DO Chucho Saravia Work Phone: [facility]-Surgery Center [place] Start: 02-24-2023 End: 02-24-2023 ambulatory DO Chucho Saravia Work Phone: [facility] Work Phone: Start: 02-23-2023 End: 02-23-2023 ambulatory Barry Olexa Other [facility] Other Start: 02-23-2023 Telephone encounter Barry Garyxa [facility] Start: 02-12-2023 End: 02-12-2023 ambulatory Barry Olexa Facility:[facility] Start: 02-12-2023 End: 02-12-2023 Patient encounter procedure DO Chucho Saravia Work Phone: [facility]-Pre-Surgical Testing Work Phone: Start: 02-09-2023 End: 02-09-2023 ambulatory Barry Olexa Other [facility] Other Start: 02-09-2023 Encounter for other preprocedural examination Barry Olexa [facility] Start: 02-09-2023 Office outpatient vi sit 25 minutes Barry Garyxa [facility] Start: 02-05-2023 End: 02-05-2023 ambulatory Barry Olexa Facility:[facility] Start: 02-05-2023 End: 02-05-2023 ambulatory DO Chucho Ball Work Phone: [facility] Work Phone: Start: 02-05-2023 End: 02-05-2023 Patient encounter procedure DO Chucho Ball Work Phone: [facility]-MRI [address] Work Phone: Start: 02-01-2023 End: 02-01-2023 ambulatory Barry Patel Other [facility] Other Start: 02-01-2023 Telephone encounter Barry Olexa [facility] Start: 01-25-2023 Office outpatient vi sit 25 minutes Barry Olexa [facility] Start: 01-25-2023 End: 01-25-2023 ambulatory DO Chucho Ball Work Phone: [facility] Work Phone: Start: 01-25-2023 End: 01-25-2023 Patient encounter procedure DO Chucho Ball Work Phone: [facility] Start: 01-18-2023 End: 01-18-2023 ambulatory Chucho Saravia Other [facility] Other Start: 01-18-2023 Telephone encounter Chucho Saravia [facility] Start: 12-24-2022 End: 12-24-2022 ambulatory Coy Cassidy II Other [facility] Other Start: 12-24-2022 Telephone encounter Coy Cassidy II [facility] Start: 12-14-2022 End: 12-14-2022 ambulatory Chucho Saravia Other [facility] Other Start: 12-14-2022 Office outpatient vi sit 15 minutes Chucho Saravia [facility] Start: 12-07-2022 End: 12-07-[address] CHUCHO SARAVIA Facility: Start: 12-03-2022 End: 12-03-2022 ambulatory Coy Cassidy II Other [facility] Other Start: 12-03-2022 Telephone encounter Coy Cassidy II [facility] [employer] Start: 11-30-2022 End: 11-30-2022 ambulatory Chucho Saravia Other [facility] Other Start: 11-30-2022 Telephone encounter Chucho SALGADO [facility] Start: 11-26-2022 End: 11-26-2022 ambulatory Coy Cassidy II Facility:[facility] Start: 11-26-2022 End: 11-26-2022 Patient encounter procedure DO Chucho Saravia Work Phone: [facility] Start: 11-20-2022 End: 11-20-2022 ambulatory Barry Valenzuela Other [facility] Other Start: 11-20-2022 Telephone encounter Barry SALGADO [facility] Start: 11-19-2022 End: 11-19-2022 ambulatory Barry Valenzuela Other [facility] Other Start: 11-19-2022 Office outpatient vi sit 15 minutes Barry Valenzuela [facility] [place] Start: 11-18-2022 End: 11-18-2022 ambulatory Chucho Saravia Other [facility] Other Start: 11-18-2022 Telephone encounter Chucho Saravia NAOMI Dario Saravia [facility] Start: 11-17-2022 End: 11-18-[address] NONE LISTED REQUEST Facility: Start: 11-17-2022 Nursing evaluation o f patient and report Chucho Saravia [facility] Start: 11-09-2022 (Procedure) Short Barry Valenzuela [facility] Start: 11-09-2022 End: 11-09-2022 ambulatory Barry Valenzuela Other [facility] Other Start: 10-29-2022 Office outpatient vi sit 25 minutes Barry Valenzuela [facility] [place] Start: 10-29-2022 Telephone encounter Barry SALGADO [facility] Start: 10-29-2022 End: 10-29-2022 ambulatory DO Chucho Ball Work Phone: [facility] Work Phone: Start: 10-29-2022 End: 10-29-2022 Patient encounter procedure DO Chucho Ball Work Phone: [facility] Start: 10-27-2022 End: 10-27-2022 ambulatory Radha Kennedy Other [facility] Other Start: 10-27-2022 Telephone encounter Radha Kennedy [facility] Start: 10-23-2022 End: 10-23-2022 ambulatory Benigno Kennedy Other [facility] Other Start: 10-23-2022 Office outpatient vi sit 15 minutes Benigno Kennedy [facility] Start: 10-22-2022 End: 10-22-2022 ambulatory Chucho Saravia Other [facility] Other Start: 10-22-2022 Telephone encounter Chucho Saravia [facility] Start: 08-27-2022 End: 08-27-2022 ambulatory DO Chucho Ball Work Phone: [facility] Work Phone: Start: 08-27-2022 End: 08-27-2022 Patient encounter procedure DO Chucho Ball Work Phone: [facility]-MRI [place] Start: 08-18-2022 End: 08-18-2022 ambulatory Beingno Kennedy Other [facility] Other Start: 08-18-2022 Office outpatient vi sit 15 minutes Benigno Kennedy [facility] Start: 08-12-2022 End: 08-12-2022 ambulatory DO Chucho Ball Work Phone: [facility] Work Phone: Start: 08-12-2022 End: 08-12-2022 Patient encounter procedure DO Chucho Saravia Work Phone: [facility] Start: 08-04-2022 End: 08-04-2022 ambulatory Barry Valenzuela Other [facility] Other Start: 08-04-2022 Office outpatient vi sit 25 minutes Barry Valenzuela [facility] [place] Start: 07-07-2022 End: 07-07-2022 ambulatory DO Chucho Saravia Work Phone: [facility] Work Phone: Start: 07-07-2022 End: 07-07-2022 Patient encounter procedure DO Chucho Saravia Work Phone: [facility]-Center [facility] Start: 06-22-2022 Adult health examination Jose Angel Saravia Other [facility] Other Start: 06-22-2022 End: 06-23-[address] CHUCHO SARAVIA Facility:[facility] Start: 05-26-2022 End: 05-26-[address] CHUCHO SARAVIA Facility:[facility] Start: 04-28-2022 End: 04-29-[address] CHUCHO SARAVIA Facility:[facility] Start: 04-16-2022 End: 04-17-[address] CHUCHO SARAVIA Facility:[facility] Start: 04-15-2022 End: 04-15-[address] CHUCHO SARAVIA Facility:[facility] Start: 03-11-2022 End: 03-11-2022 ambulatory Barry Valenzuela Other [facility] Other Start: 03-11-2022 Office outpatient vi sit 25 minutes Barry Valenzuela [facility] [place] Start: 03-04-2022 (Procedure) Short Barry Valenzuela [facility] Start: 03-04-2022 End: 03-04-2022 ambulatory Barry Valenzuela Other [facility] Other Start: 02-17-2022 End: 02-17-2022 ambulatory Benigno Kennedy Other [facility] Other Start: 02-17-2022 Office outpatient vi sit 15 minutes Benigno Kennedy [facility] Start: 01-19-2022 End: 01-20-[address] CHUCHO SARAVIA Facility: Start: 01-05-2022 End: 01-05-2022 ambulatory Barry Valenzuela Other [facility] Other Start: 01-05-2022 Office outpatient vi sit 25 minutes Barry Valenzuela [facility] [place] Start: 12-03-2021 End: 12-03-2021 ambulatory Barry Valenzuela Other [facility] Other Start: 12-03-2021 Office outpatient vi sit 25 minutes Barry Valenzuela [facility] [place] Start: 11-28-2021 End: 11-28-2021 ambulatory Barry Valenzuela Other [facility] Other Start: 11-28-2021 Telephone encounter Barry [facility]enzuela [facility] Start: 11-07-2021 End: 11-07-2021 ambulatory Benigno Kennedy Other [facility] Other Start: 11-07-2021 Office outpatient vi sit 15 minutes Benigno Kennedy [facility] Start: 11-03-2021 End: 11-03-2021 ambulatory Barry Valenzuela Other [facility] Other Start: 11-03-2021 Office outpatient vi sit 25 minutes Barry Valenzuela [facility] [place] Start: 10-14-2021 (Procedure) Short Barry Valenzuela [facility] Start: 10-14-2021 End: 10-14-2021 ambulatory Barry Valenzuela Other [facility] Other Start: 10-06-2021 End: 10-06-2021 ambulatory Barry Valenzuela Other [facility] Other Start: 10-06-2021 Office outpatient vi sit 25 minutes Barry Valenzuela [facility] [place] Start: 09-18-2021 End: 09-18-2021 ambulatory Benigno Kennedy Other [facility] Other Start: 09-18-2021 Office outpatient vi sit 15 minutes Benigno Kennedy [facility] Start: 09-11-2021 End: 09-11-2021 ambulatory Barry Valenzuela Other [facility] Other Start: 09-11-2021 Office outpatient vi sit 25 minutes Barry Valenzuela [facility] [place] Start: 09-02-2021 End: 09-02-2021 ambulatory Barry Valenzueal Other [facility] Other Start: 09-02-2021 Office outpatient vi sit 25 minutes Barry Valenzuela [facility] [place] Start: 08-26-2021 (Procedure) Short Barry Valenzuela [facility] Start: 08-26-2021 End: 08-26-2021 ambulatory Barry Valenzuela Other [facility] Other Start: 08-25-2021 End: 08-25-2021 ambulatory Benigno Kennedy Other [facility] Other Start: 08-25-2021 Telephone encounter Benigno Kennedy [facility] Start: 08-15-2021 End: 08-15-2021 ambulatory Barry Valenzuela Other [facility] Other Start: 08-15-2021 Telephone encounter Barry Valenzuela [facility] [place] Start: 08-14-2021 End: 08-14-2021 ambulatory Benigno Kennedy Other [facility] Other Start: 08-14-2021 Office outpatient vi sit 15 minutes Benigno Kennedy [facility] Start: 09-05-2019 Pre-procedure evalua tion check Chucho Ball Other [facility] Other Start: 06-06-2018 Patient encounter CIRA BENDER Fac ility:[id number] Start: 06-06-2018 Patient encounter Facil [id number] Start: 04-11-2018 End: 04-13-2018 Patient encounter RENATA LEIF [facility] Start: 04-11-2018 End: 04-11-2018 Patient encounter RENATA LEIF [facility] Start: 04-11-2018 End: 04-13-2018 Patient encounter RENATA [facility] Procedures Date Procedure Procedure Detail Performing Clinician Start: 11-03-2023 Plain x-ray of pelvi s and lower extremity DO Chucho Ball Work Phone: Start: 07-13-2023 Plain X-ray of bilat eral hands DO Chucho Ball Work Phone: Start: 07-08-2023 Screening mammograph y of bilateral breasts DO Chucho Ball Work Phone: Start: 06-08-2023 Plain X-ray of left shoulder DO Chucho Ball Work Phone: Start: 04-12-2023 Plain X-ray of left shoulder DO Chucho Ball Work Phone: Start: 03-08-2023 Plain X-ray of left shoulder DO Chucho Ball Work Phone: Start: 02-24-2023 Plain X-ray of left shoulder DO Chucho Ball Work Phone: Start: 02-24-2023 Prosthetic total arthroplasty of left shoulder DO Chucho Ball Work Phone: Start: 02-05-2023 MRI of left shoulder DO Chucho Ball Work Phone: Start: 01-25-2023 Plain X-ray of left shoulder DO Chucho Ball Work Phone: Start: 11-26-2022 Plain X-ray of right femur DO Chucho Ball Work Phone: Start: 11-26-2022 X-ray of right knee DO Chucho Ball Work Phone: Start: 11-26-2022 Plain X-ray of right hip DO Chucho Saravia Work Phone: Start: 10-29-2022 Plain X-ray of right hip DO Chucho Saravia Work Phone: Start: 08-27-2022 MRI of lumbar spine with contrast DO [facility]ucho [employer] Work Phone: Start: 08-12-2022 X-ray of lumbar spin e, four views DO Chucho [employer] Work Phone: Start: 07-07-2022 Screening mammograph y of bilateral breasts DO Chucho [employer] Work Phone: Start: 01-25-2018 Screening for osteoporosis Chucho Saravia Other Start: 01-25-2018 Screening mammography B enjasuraj [facility] Other Start: 11-12-2015 Screening for malign ant neoplasm of breast Chucho Saravia Other Start: 11-12-2015 Screening for malign ant neoplasm of colon Chucho Saravia Other Start: 10-04-2014 Pre-surgery evaluation Chucho Saravia Other Start: 10-04-2014 Preoperative cardiov ascular examination Chucho Saravia Other Start: 10-04-2014 Preoperative pulmona ry examination Chucho Saravia Other Depression screening Lashell Saravia Other Screening for malign ant neoplasm of breast Chucho Saravia Other Plan of Treatment Date Care Activity Detail Author Start: 02-24-2023 End: 02-24-2023 [facility] Start: 02-24-2023 Referral to occupati onal therapist [facility] Start: 02-24-2023 [facility] Start: 01-25-2023 Plain X-ray of left shoulder XR shoulder LT min 2V* [facility] Comprehensive metabo lic 2000 panel - Serum or Plasma [facility] XR Chest [address] [facility] Immunizations Immunization Date Immunization Notes Care Provider Kam moses 06-22-2023 influenza virus vaccine, unspecified formulation DO Chucho Saravia Work Phone: [facility] 06-22-2023 influenza, high dose seasonal, preservative-free Barry Valenzuela Other [facility] Other 06-16-2022 influenza virus vaccine, split virus (incl. purified surface antigen) Chucho Saravia Other [facility] Other 06-16-2022 influenza virus vaccine, unspecified formulation DO Chucho Saravia Work Phone: [facility] 12-16-2020 COVID-19 mRNA-1273 (Moderna) DO Chucho Saravia Work Phone: [facility] 11-18-2020 COVID-19 mRNA-1273 (Moderna) DO Chucho Saravia Work Phone: [facility] 06-02-2017 influenza virus vaccine, split virus (incl. purified surface antigen) Chucho Saravia Other [facility] Other 06-02-2017 influenza virus vaccine, unspecified formulation DO Chucho [employer] Work Phone: [facility] 02-10-2017 pneumococcal polysaccharide vaccine, 23 valent Chucho Saravia Other [facility] 05-01-2015 pneumococcal conjuga te vaccine, 13 valent Chucho Saravia Other [facility] 05-01-2015 pneumococcal Conjuga te, unspecified formulation; Translations: [Need for prophylactic vaccination against Streptococcus pneumoniae (pneumococcus)] Chucho Saravia Other [facility] Other 08-01-2014 influenza virus vaccine, split virus (incl. purified surface antigen) Chucho Saravia Other [facility] Other 08-01-2014 influenza virus vaccine, unspecified formulation DO Chucho Saravia Work Phone: [facility] 07-05-2013 tetanus and diphther ia toxoids, adsorbed, preservative free, for adult use (5 Lf of tetanus toxoid and 2 Lf of diphtheria toxoid) Chucho Saravia Other [facility] 07-05-2012 tetanus and diphther ia toxoids, adsorbed, preservative free, for adult use (5 Lf of tetanus toxoid and 2 Lf of diphtheria toxoid) Chucho Saravia Other [facility] 07-01-2011 tetanus and diphther ia toxoids, adsorbed, preservative free, for adult use (5 Lf of tetanus toxoid and 2 Lf of diphtheria toxoid) Chucho Saravia Other [facility] 08-06-2004 pneumococcal polysaccharide vaccine, 23 valent Chucho Saravia Other [facility] Payers Date Payer Category Payer Medicare [id number] 1957 Self-pay [id number] 1957 Unknown [id number] [id number] 1947 Unknown [id number] 2.16.840.1.748667.3.579.2.59 1947 Unknown [id number] .16.840.1.688913.3.579.2.59 1947 Unknown [id number] 2.16.840.1.357601.3.579.2.59 1947 Unknown [id number] 2.16.840.1.508078.3.579.2.59 1947 Unknown [id number] 2.16.840.1.231415.3.579.2.59 1947 Unknown [id number] 2.16.840.1.436283.3.579.2.593 1947 Unknown [id number] 2.16.840.1.353229.3.579.2.593 1947 Unknown [id number] 2.16.840.1.755705.3.579.2.1259 1947 Unknown [id number] 2.16.840.1.100229.3.579.2.1259 1947 Unknown [id number] 2.16.840.1.580222.3.579.2.125 1947 Unknown [id number] 2.16.840.1.116588.3.579.2.1259 Medicare [id number] Unknown [facility] [employer] C o [id number] Unknown [id number] 2.16.840.1.068604.3.579.2.593 Unknown [id number] 2.16.840.1.496495.3.579.2.531 Unknown [id number] 2.16.840.1.608778.3.579.2.531 Unknown [id number] 2.16.840.1.880844.3.579.2.531 Unknown [id number] 2.16.840.1.585566.3.579.2.531 Unknown [id number] 2.16.840.1.168155.3.579.2.531 Unknown [id number] 2.16.840.1.130595.3.579.2.531 Unknown [id number] 2.16.840.1.774396.3.579.2.531 Unknown [id number] 2.16.840.1.539299.3.579.2.531 Unknown [id number] 2.16.840.1.233121.3.579.2.531 Unknown [id number] 2.16.840.1.619584.3.579.2.531 Unknown [id number] 2.16.840.1.545671.3.579.2.531 Unknown [id number] 2.16.840.1.742496.3.579.2.531 Social History Date Type Detail Facility Unknown if ever smoked [facility] Other Sex Assigned At Sex Assigned At Bir th [facility] Other Start: 03-05-2021 End: 02-24-2023 Tobacco smoking status NHIS Ex-smoker (finding) [facility] Start: 1945 Sex Assigned At Female F [facility] Medical Equipment Procedure Code Equipment Code Equipment Origin al Text Equipment Identifier Dates Fusion, spine, lumbar, XLIF CANCELLOUS 15CC CRUSHED FDA Start: 03-05-2021 Fusion, spine, lumbar, XLIF Orthopaedic bone screw, non-bioabsorbable, non-sterile [id number] FDA Start: 03-05-2021 Fusion, spine, lumbar, XLIF Orthopaedic instrument surgical connector [id number] FDA Start: 03-05-2021 Fusion, spine, lumbar, XLIF Bone-screw internal spinal fixation system, non-sterile [id number] FDA Start: 03-05-2021 Fusion, spine, lumbar, XLIF Spinal fusion graft kit ()[id number] FDA Start: 03-05-2021 Fusion, spine, lumbar, XLIF Polymeric spinal fusion cage, sterile [id number] FDA Start: 03-05-2021 Fusion, spine, lumbar, XLIF Bone-screw internal spinal fixation system, non-sterile [id number] FDA Start: 03-05-2021 Fusion, spine, lumbar, XLIF Orthopaedic bone screw, non-bioabsorbable, non-sterile [id number] FDA Start: 03-05-2021 Fusion, spine, lumbar, XLIF CANCELLOUS 15CC CRUSHED FDA Start: 03-05-2021 Fusion, spine, lumbar, XLIF CANCELLOUS 15CC CRUSHED FDA Start: 03-05-2021 Fusion, spine, lumbar, XLIF CANCELLOUS 15CC CRUSHED FDA Start: 03-05-2021 Fusion, spine, lumbar, XLIF CANCELLOUS 15CC CRUSHED FDA Start: 03-05-2021 Fusion, spine, lumbar, XLIF CANCELLOUS 15CC CRUSHED FDA Start: 03-05-2021 Fusion, spine, lumbar, XLIF CANCELLOUS 15CC CRUSHED FDA Start: 03-05-2021 Fusion, spine, lumbar, XLIF CANCELLOUS 15CC CRUSHED FDA Start: 03-05-2021 Fusion, spine, lumbar, XLIF CANCELLOUS 15CC CRUSHED FDA Start: 03-05-2021 Fusion, spine, lumbar, XLIF CANCELLOUS 15CC CRUSHED FDA Start: 03-05-2021 Fusion, spine, lumbar, XLIF CANCELLOUS 15CC CRUSHED FDA Start: 03-05-2021 Fusion, spine, lumbar, XLIF CANCELLOUS 15CC CRUSHED FDA Start: 03-05-2021 Fusion, spine, lumbar, XLIF CANCELLOUS 15CC CRUSHED FDA Start: 03-05-2021 Fusion, spine, lumbar, XLIF CANCELLOUS 15CC CRUSHED FDA Start: 03-05-2021 Fusion, spine, lumbar, XLIF CANCELLOUS 15CC CRUSHED FDA Start: 03-05-2021 Fusion, spine, lumbar, XLIF CANCELLOUS 15CC CRUSHED FDA Start: 03-05-2021 Fusion, spine, lumbar, XLIF CANCELLOUS 15CC CRUSHED FDA Start: 03-05-2021 Fusion, spine, lumbar, XLIF CANCELLOUS 15CC CRUSHED FDA Start: 03-05-2021 Fusion, spine, lumbar, XLIF CANCELLOUS 15CC CRUSHED FDA Start: 03-05-2021 Fusion, spine, lumbar, XLIF CANCELLOUS 15CC CRUSHED FDA Start: 03-05-2021 Fusion, spine, lumbar, XLIF CANCELLOUS 15CC CRUSHED FDA Start: 03-05-2021 Arthroscopy, shoulder Tendon/ligament bone anchor, non-bioabsorbable ()[id number] FDA Start: 08-01-2019 Arthroplasty, shoulder, total Total reverse shoulder prosthesis ()[id number] 69 FDA Start: 02-24-2023 Arthroplasty, shoulder, total Total reverse shoulder prosthesis ()[id number] FDA Start: 02-24-2023 Arthroplasty, shoulder, total Total reverse shoulder prosthesis ()[id number] [id number] 30 FDA Start: 02-24-2023 Arthroplasty, shoulder, total Total reverse shoulder prosthesis ()[id number] [id number] 00 FDA Start: 02-24-2023 Arthroplasty, shoulder, total Total reverse shoulder prosthesis ()[id number] [id number] 66 FDA Start: 02-24-2023 Arthroplasty, shoulder, total Total reverse shoulder prosthesis ()[id number] [id number] 85 FDA Start: 02-24-2023 Arthroplasty, shoulder, total Total reverse shoulder prosthesis ()[id number] [id number] 59 FDA Start: 02-24-2023 Arthroplasty, shoulder, total Total reverse shoulder prosthesis ()[id number] FDA Start: 02-24-2023 Arthroplasty, shoulder, total Total reverse shoulder prosthesis [id number] [id number] FDA Start: 02-24-2023 Arthroplasty, shoulder, total Total reverse shoulder prosthesis ()[id number] [id number] 66 FDA Start: 02-24-2023 Goals Date Patient Goal Desired Activity /State Clinical Notes 08-14-2021 to 11-09-2023 Note Date & Type Note Facility 11-09-2023 Evaluation note Encounter Date Diagnosis Assessment Notes Oct, LALITA (generalized anxiety disorder) (ICD-10 - F41.1) [facility] Other 02-07-2024 Evaluation note* Encounter Date Diagnosis Assessment Notes Treatment Notes Treatment Clinical Notes Oct, Pain in right hip (ICD-10 - M25.551) Oct, Pain in left hip (ICD-10 - M25.552) Oct, Pain of right lower extremity (ICD-10 - M79.604) Oct, Other We again discus sed the extent of her surgeries will inevitably cause pain on the outside part of the hip especially. We have discussed this previously and she understands that she does have baseline pain but her biggest concern is the significant increase in pain. I informed her that at this point in time I do not appreciate any changes on x-ray and I do not appreciate anything drastically different on her physical exam. Due to the extent of her pain and the diffuse locality of the pain I recommended a Medrol Dosepak to try and knock down any inflammation. I did explain that given her history of any sort of steroid whether orally or via injection could increase her risk of infection and especially if there was already an active infection. In my medical opinion I do not appreciate any signs of infection and I think the fact that she can pinpoint to the exact moment when all the stuff started happening this is likely more inflammatory than infectious in nature. As a result I did prescribe her a Medrol Dosepak. If she is not seeing relief in the next couple weeks then I recommend we get her back into see Dr. Valenzuela to determine if there is any areas that she can have steroid injections. Furthermore, I again stressed to her that if she would like to see the someone in [place] or [place] for another set of eyes to determine if there is anything from a surgical standpoint I can help with her significant pain I am happy to make that referral as well. I again stressed that I do not feel that there is anything from a surgical standpoint that I will be able to offer her. [facility] Other 10-17-2023 Evaluation note* Encounter Date Diagnosis Assessment Notes Treatment Notes Treatment Clinical Notes Jun, Pain in right hand (ICD-10 - M79.641) Jun, Arthritis of carpometacarpal (CMC) joints of both thumbs (ICD-10 - M18.0) X-rays were reviewed with patient in detail. The patient is suffering from degenerative arthritis involving the bilateral thumb CMC joints. We discussed that conservative treatment options which can be beneficial in relieving pain, including splinting or bracing and non-steroidal anti-inflammatory medication. We discussed the use of occasional cortisone injections that can provide pain relief as well. Should conservative measures fail we could refer patient to Dr. Mclean to discuss possible surgical options. We performed a 1/1cc marcaine / kenalog cortisone injection into the right thumb CMC joint under sterile technique. She will call if she would like the left thumb CMC injected. Jun, Pain in left hand (ICD-10 - M79.642) [facility] Other 10-10-2023 Evaluation note* Encounter Date Diagnosis Assessment Notes Treatment Notes Treatment Clinical Notes Jun, Lumbar spondylosis (ICD-10 - M47.816) [facility] Other 10-10-2023 Evaluation note* Encounter Date Diagnosis Assessment Notes Treatment Notes Treatment Clinical Notes Jun, Trochanteric bursitis of left hip (ICD-10 - M70.62) Patient continues to benefit from a recent left trochnateric bursa injection and denies any complaints of pain in the area at this time. We will continue to monitor her symptoms in this region. Anatomy of spine discussed in detail with patient in regard to patients condition. Overall, patient believes their pain is reasonably well controlled and she is in agreement with our treatment plan. Jun, Bilateral sacroiliitis (ICD-10 - M46.1) Patient continues to benefit from a recent bilateral sacroiliac joint injection and denies any complaints of pain in the area at this time. We will continue to monitor her symptoms in this region. Anatomy of spine discussed in detail with patient in regard to patients condition. Overall, patient believes their pain is reasonably well controlled and she is in agreement with our treatment plan. Jun, Other spondylosis with radiculopathy, lumbar region (ICD-10 - M47.26) Patient has a continued need for Hydrocodone/ Acetaminophen 5-325 up to twice daily as needed. An OARRS report was processed and reviewed and shows no violations, as well as an opioid risk assessment being completed without concerns. She denies any significant opioid related side effects and appears to be compliant with this medication. 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 She understands the associated risks with this medication and agrees that it provides reasonable benefit in regards to her pain control and level of function. This was refilled today. Jun, Right hip pain (ICD-10 - M25.551) Patients primary complaint today is severe right hip pain. She was encouraged to continue to follow with orthopedics. In the meantime, she will continue her current medication regimen. Jun, Other Above note writ ten by Henry Salter MA, [employer]. Edited and approved by Dr. Barry Valenzuela MD. 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 Discussed that heavy or strenuous use of the shoulder should be avoided. Patient may slowly progress increased activity as pain allows. [facility] Other 08-18-2023 Evaluation note* Encounter Date Diagnosis Assessment Notes Treatment Notes Treatment Clinical Notes Apr, Age-related osteoporosis without current pathological fracture (ICD-10 - M81.0) [facility] Other 06-06-2023 Evaluation note* Encounter Date Diagnosis Assessment Notes Treatment Notes Treatment Clinical Notes Feb, Acute bronchitis due to other specified organisms (ICD-10 - J20.8) [facility] Other 06-02-2023 Evaluation note* Encounter Date Diagnosis Assessment Notes Treatment Notes Treatment Clinical Notes Feb, Acute bronchitis due to other specified organisms (ICD-10 - J20.8) Instructed to use Robitussin or Mucinex for cough, saline or Flonase NS for congestion, Tylenol for pain and fever. 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 Based on the severity of her condition, advised if she is unable to live with condition, would proceed with reverse total shoulder replacement. We will plan on reverse total shoulder replacement surgery. The patient has stated that they do not want to live in this condition any longer and would like to proceed with surgery. I feel that this is a reasonable option at this point and we may be able to improve function and decrease pain. We have discussed the process and procedure in detail including not eating or drinking 8 hrs prior to surgery, the need for general anesthesia and associated respiratory, cardiac, and patient position complications (such as nerve traction and compression). The benefit of regional block anesthesia and complications of arm numbness and neck pain. We discussed that pain and stifffness can be expected after surgery for months. The complications of infection, scapular notching, dislocation, cuff repair failure, component loosening, loss of motion, hematoma, wound problems, penitentiary pain and stiffness are well known problems that can require repeat surgeries. Patient is fully aware that this shoulder may never be the same. We discussed that our team will do everything we can to help achieve the best outcome possible. January, Tear of left infraspinatus tendon, initial encounter (ICD-10 - S46.812A) January, Avascular necrosis of humeral head, left (ICD-10 - M87.022) January, Pre-op exam (ICD-10 - Z01.818) [facility] Other 05-08-2023 Evaluation note* Encounter Date Diagnosis Assessment Notes Treatment Notes Treatment Clinical Notes January, Internal derangement of left shoulder (ICD-10 - M24.812) [facility] Other 05-01-2023 Evaluation note* Encounter Date Diagnosis Assessment Notes Treatment Notes Treatment Clinical Notes January, Acute pain of left shoulder (ICD-10 - M25.512) Tiana presents with left shoulder pain. Radiographs reviewed and discussed in detail with patient. I have a high suspicion of a rotator cuff tear based on the history of symptoms and physical exam findings. An MRI will be necessary to plan further treatment options and potential surgery. Patient voices understanding and is agreeable to treatment plan. We will submit MRI to patient's insurance and follow up to review results in office after MRI is obtained. January, Internal derangement of left shoulder (ICD-10 - M24.812) [facility] Other 03-20-2023 Evaluation note* Encounter Date Diagnosis Assessment Notes Treatment Notes Treatment Clinical Notes Nov, Mucopurulent chronic bronchitis (ICD-10 - J41.1) Mucinex as needed. LABA/ICS twice daily for maintenance therapy MICHAELA as needed, not using daily No ER visits for AECOPD Nov, Pain in left shoulder (ICD-10 - M25.512) Subacromial injection using sterile technique w/o complications. Instructed on exercises and icing. May have injection every 3 mo as needed. 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 Nov, Cigarette nicotine dependence in remission (ICD-10 - F17.211) Continue abstinence Nov, Other chronic pain (ICD-10 - G89.29) [facility] Other 02-24-2023 Evaluation note* Encounter Date Diagnosis Assessment Notes Treatment Notes Treatment Clinical Notes Oct, Mucopurulent chronic bronchitis (ICD-10 - J41.1) [facility] Other 02-23-2023 Evaluation note* Encounter Date Diagnosis Assessment Notes Treatment Notes Treatment Clinical Notes Oct, Trochanteric bursitis of left hip (ICD-10 - M70.62) Oct, Bilateral sacroiliitis (ICD-10 - M46.1) Patient is voicing minimal complaints of back pain at this time. She attributes this to a recent bilateral sacroiliac joint and left trochanteric bursa injection. We will continue to monitor her symptoms in this region. Anatomy of spine discussed in detail with patient in regard to patients condition. Overall, patient believes their pain is reasonably well controlled, and she is in agreement with our treatment plan. Oct, Other spondylosis with radiculopathy, lumbar region (ICD-10 - M47.26) Patient has a continued need for Hydrocodone/ Acetaminophen 5-325 up to twice daily as needed. An OARRS report was processed and reviewed and shows no violations, as well as an opioid risk assessment being completed without concerns. She denies any significant opioid related side effects and appears to be compliant with this medication. 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 She understands the associated risks with this medication and agrees that it provides reasonable benefit in regards to her pain control and level of function. No refill needed today. Oct, Right hip pain (ICD-10 - M25.551) We discussed treatment options for the patient's persistent right hip pain. She has a history of right hip replacement and femur fracture hardware. Given her history and increasing pain symptoms as well failed previous conservative measures, I would like her to be formally evaluated by Orthopedics for her hip and leg pain. Oct, Other Above note writ ten by Shahla Lopez LPN, [employer]. Edited and approved by Dr. Barry Valenzuela MD. [facility] Other 02-22-2023 Evaluation note* Encounter Date Diagnosis Assessment Notes Treatment Notes Treatment Clinical Notes Oct, Mucopurulent chronic bronchitis (ICD-10 - J41.1) [facility] Other 02-21-2023 Evaluation note* Encounter Date Diagnosis Assessment Notes Treatment Notes Treatment Clinical Notes Oct, Pernicious anemia (ICD-10 - D51.0) [facility] Other 02-02-2023 Evaluation note* Encounter Date Diagnosis Assessment Notes Treatment Notes Treatment Clinical Notes Oct, Trochanteric bursitis of left hip (ICD-10 - M70.62) Oct, Bilateral sacroiliitis (ICD-10 - M46.1) We discussed treatment options for the patient's persistent low bilateral sided lumbar/gluteal pain. She shows notable pain consistent with the sacroiliac joint and trochanteric bursas. She has failed multiple previous conservative treatment options. I agree with Dr Kennedy's assessment her symptoms appear consistent with sacroiliac joints and trochanteric bursitis. It would be reasonable to proceed with bilateral sacroiliac joint and trochanteric bursa injections, which we will proceed with. Risks and benefits of procedure explained to patient; patient verbalizes understanding. Anatomy of spine discussed in detail with patient in regard to patients condition. Oct, Trochanteric bursitis, right hip (ICD-10 - M70.61) Oct, Other spondylosis with radiculopathy, lumbar region (ICD-10 - M47.26) Patient has a continued need for Hydrocodone/ Acetaminophen 5-325 up to twice daily as needed. An OARRS report was processed and reviewed and shows no violations, as well as an opioid risk assessment being completed without concerns. She denies any significant opioid related side effects and appears to be compliant with this medication. 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 She understands the associated risks with this medication and agrees that it provides reasonable benefit in regards to her pain control and level of function. This medication was refilled today. Oct, Other Above note writ ten by Shahla Lopez LPN, [employer]. Edited and approved by Dr. Barry Valenzuela MD. [facility] Other 01-27-2023 Evaluation note* Encounter Date Diagnosis Assessment Notes Treatment Notes Treatment Clinical Notes Sep, 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 (ICD-10 - G89.3) Sep, Other chronic pain (ICD-10 - G89.29) I have independently reviewed the MRI of the lumbar spine and the report and the plain x-ray and the report. There is a slight spondylolisthesis at L4-5 that is now beginning to develop at 3 years postop. There is also a small synovial cyst developing on the left L4-5 joint. Clinically the patient has no radicular pain in the left leg; she has significant trochanteric bursitis of the left hip, also the right and significant sacroiliac inflammation, mainly from sagittal imbalance. At this point she needs no surgical intervention. I think pain management again remains her best option for injection of these inflamed bursa and sacroiliac joint. I will see her again in 6 months for follow-up with another xray. 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 Sep, Arthropathy of right hip (ICD-10 - M16.11) Sep, Low back pain, unspecified (ICD-10 - M54.50) Sep, History of lumbar spinal fusion (ICD-10 - Z98.1) Sep, Trochanteric bursitis, right hip (ICD-10 - M70.61) Sep, Trochanteric bursitis, left hip (ICD-10 - M70.62) Sep, Inflammation of right sacroiliac joint (ICD-10 - M46.1) [facility] Other 11-22-2022 Evaluation note* Encounter Date Diagnosis Assessment Notes Treatment Notes Treatment Clinical Notes Jul, 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 (ICD-10 - G89.3) Jul, Other chronic pain (ICD-10 - G89.29) Jul, Arthropathy of right hip (ICD-10 - M16.11) Jul, Low back pain, unspecified (ICD-10 - M54.50) This patient has no new x-rays at this point other than a dynamic back x-ray 6 view which was reviewed with me. There is a very slight anterior spondylolisthesis at L4-5.Her complaints are thoracolumbar paramedian pain axial low back pain.She has no buttock or trochanteric pain anymore. Her legs are better with regard to radicular complaints. She has chronic right leg pain from a femur fracture etc.To ensure there are no problems I ordered an MRI of the lumbar spine. 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 She has a continued need for Hydrocodone/ Acetaminophen 5-325 up to twice daily as needed. An OARRS report was processed and reviewed and shows no violations, as well as an opioid risk assessment being completed without concerns. She denies any significant opioid related side effects and appears to be compliant with this medication. The patient was counseled and educated regarding the risks and benefits of penitentiary opioid use. She understands the associated risks with this medication and agrees that it provides reasonable benefit in regards to her pain control and level of function. This medication was refilled today. Jul, Other spondylosis with radiculopathy, lumbar region (ICD-10 - M47.26) Jul, Trochanteric bursitis of left hip (ICD-10 - M70.62) Jul, Other Above note writ ten by Henry Salter MA, [employer]. Edited and approved by Dr. Barry Valenzuela MD. [facility] Other 06-15-2022 Evaluation note* Encounter Date Diagnosis Assessment Notes Treatment Notes Treatment Clinical Notes Feb, Tear of gluteus medius tendon (ICD-10 - S76.019A) Patient continues to voice complaints of tailbone pain. She has a continued need for Hydrocodone/ Acetaminophen 5-325 up to twice daily as needed. An OARRS report was processed and reviewed and shows no violations, as well as an opioid risk assessment being completed without concerns. She denies any significant opioid related side effects and appears to be compliant with this medication. The patient was counseled and educated regarding the risks and benefits of penitentiary opioid use. She understands the associated risks with this medication and agrees that it provides reasonable benefit in regards to her pain control and level of function. This medication was refilled today. 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 Edited and approved by Dr. Barry Valenzuela MD. [facility] Other 05-24-2022 Evaluation note* Encounter Date Diagnosis Assessment Notes Treatment Notes Treatment Clinical Notes January, 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 (ICD-10 - G89.3) January, Other chronic pain (ICD-10 - G89.29) Today the patient has bilateral flank pain that is mostly palpable. She has no buttock pain, no pain going down her leg. I suspect this was indeed a muscular problem and it has healed itself. She has no radicular complaints at this time with regard to the leg. She can now sit but she has chronic tailbone pain which is not changing and now has paramedian back discomfort which I am not sure what is the cause. She is happy with her overall progress though. I will see her again in 6 months with a new back x-ray. 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 We can consider proceeding with repeat bursa injections in the future should her symptoms persist. In the mean time, the patient has a continued need for Hydrocodone/ Acetaminophen 5-325 up to twice daily as needed. Risks and side effects of these medications were discussed in detail with the patient who voiced understanding. OARRS was processed and reviewed, no discrepancies. Refill provided today. Patient will follow up with us in one month, sooner if needed. 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 Edited and approved by Dr. Barry Valenzuela MD. [facility] Other 03-09-2022 Evaluation note* Encounter Date Diagnosis Assessment Notes Treatment Notes Treatment Clinical Notes Nov, Tear of gluteus medius tendon (ICD-10 - S76.019A) Patients primary complaint today continues to be left lateral hip pain. Recent ortho evaluation confirms her main issue remains trochanteric bursitis, she has recently started physical therapy for this. We can consider proceeding with repeat bursa injections in the future should her symptoms persist. In the mean time, the patient has a continued need for Hydrocodone/ Acetaminophen 5-325 up to twice daily as needed. Risks and side effects of these medications were discussed in detail with the patient who voiced understanding. OARRS was processed and reviewed, no discrepancies. Refill provided today. Patient will follow up with us in one month, sooner if needed. Nov, Other spondylosis with radiculopathy, lumbar region (ICD-10 - M47.26) Nov, Trochanteric bursitis of left hip (ICD-10 - M70.62) Nov, Other Above note writ ten by Henry Salter CMA, [employer]. Edited and approved by Dr. Barry Valenzuela MD. 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 I again reviewed my MRI I realized the reading says is severe left foraminal stenosis but on CT the left foramen looks open and I know that that left foramen was open physically intraoperatively and surgery. This patient did at 1 point have an L5 radiculopathy but at this point 90% of her pain or more is in her left hip and its with any movement. Pain management who I have talked to personally today tells me that an injection took the pain away for 1 or 2 days as she got a bursa injection but the pain has not skated away. I do not believe this is nerve pathology that needs surgical intervention, I think there are more hip issues here or perihip issues. I believe pain management is going to refer this patient for orthopedics for further evaluation. I will see the patient again in 3 months. I offered the patient a second surgical opinion and she declined. 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 Patient encouraged to proceed with upcoming injection into the gluteus minimus under ultrasound as scheduled. She also has an appointment with neurosurgery in the near future and may discuss her pain radiating to her foot. In the mean time, the patient has a continued need for Hydrocodone/ Acetaminophen 5-325 up to twice daily as needed. Risks and side effects of these medications were discussed in detail with the patient who voiced understanding. OARRS was processed and reviewed, no discrepancies. Refill provided today. We again discussed considering a referral to an orthopedic sports umpire for her hip should this upcoming injection not provide considerable relief. Oct, Other spondylosis with radiculopathy, lumbar region (ICD-10 - M47.26) Patient notes upcoming appointment with neurosurgery. Oct, Other Above note writ ten by Shahla Lopez LPN, [employer]. Edited and approved by Dr. Barry Valenzuela MD. 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 Recent MRI results show evidence of partial tearing of the gluteus minimus tendon. She was seen by neurosurgery who suggested a left trigger point injection. We will proceed with this as well as a repeat left bursa injection. Risks and benefits of procedure explained to patient; patient verbalizes understanding. In the meantime, patient has a continued need for Hydrocodone/ Aceatminophen 5-325 up to twice daily as needed. Risks and side effects of these medications were discussed in detail with the patient who voiced understanding. OARRS was processed and reviewed, no discrepencies. Patient does not need a refill at this time. If pain persists and above conservative measures do not help, we could consider referral to a orthopedic sports umpire for her hip. Sep, Other chronic pain (ICD-10 - G89.29) Sep, Other Above note writ ten by Henry Salter [facility], [place] [employer]. Edited and approved by Dr. Barry Valenzuela MD. [facility] Other 12-23-2021 Evaluation note* Encounter Date Diagnosis Assessment Notes Treatment Notes Treatment Clinical Notes Aug, Lumbar degenerative disc disease (ICD-10 - M51.36) I have been in contact with the patient's pain management doctor. There is a tear of the gluteus tendon seen on MRI when the hip was evaluated and according to orthopedics can be exquisitely painful much like the symptoms the patient is complaining about. This I expect also could theoretically irritate the L5 nerve. The patient's hardware is intact the screws remain in bone and I believe the foramen is overall open. This is no different than when the patient was feeling better with regard to her L5 pain I do not think this is a surgical entity with regard to the back at this time. I have given the patient reassurance. I think she understands this. 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 Recent MRI results show evidence of partial tearing of the gluteus minimus tendon. I discussed MRI with orthopedics who suggest conservative management. I will refer the patient to physical therapy for further treatment. We may consider an ultrasound guided injection in the future. In the meantime, patient has a continued need for Hydrocodone/ Aceatminophen 5-325 up to twice daily as needed. Risks and side effects of these medications were discussed in detail with the patient who voiced understanding. OARRS was processed and reviewed, no discrepencies. Patient does not need a refill at this time. If pain persists and above conservative measures do not help, we could consider referral to a orthopedic sports umpire. Aug, Other chronic pain (ICD-10 - G89.29) Aug, Other Above note writ ten by Henry Salter [facility], [employer]. Edited and approved by Dr. Barry Valenzuela MD. [facility] Other 12-07-2021 Evaluation note* Encounter Date Diagnosis Assessment Notes Treatment Notes Treatment Clinical Notes Aug, Stenosis, spinal, lumbar (ICD-10 - M48.06) Despite the fact that the patient did not receive significant benefit from recent left hip/bursa injection, her primary issue today appears to this left hip, supported by reproducible hip pain on physical exam. Also given the severity of her pain symptoms, we will prescribe the patient Hydrocodone-Acetami nophen 5-325 mg up to twice daily as needed for severe breakthrough pain. Risks and side effects of these medications were discussed in detail with the patient who voiced understanding. 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 Edited and approved by Dr. Barry Valenzuela MD. [facility] Other 11-29-2021 Evaluation note* Encounter Date Diagnosis Assessment Notes Treatment Notes Treatment Clinical Notes Jul, Stenosis, spinal, lumbar (ICD-10 - M48.06) [facility] Other 11-19-2021 Evaluation note* Encounter Date Diagnosis Assessment Notes Treatment Notes Treatment Clinical Notes Jul, Left hip pain (ICD-10 - M25.552) [facility] Other 11-18-2021 Evaluation note* Encounter Date Diagnosis Assessment Notes Treatment Notes Treatment Clinical Notes Jul, Lumbar spondylosis (ICD-10 - M47.816) I have personally looked at the most recent x-ray of the patient's lumbar spine which appears very adequate. I think the patient was actually getting better after her lumbar fusion then this pain started in the last 6 to 8 weeks with no known injury. All of her pain is palpable and with maneuvering of her left hip. I am concerned its left hip pain, not radicular leg pain. To ensure there is no pathology, a CAT scan of the lumbar spine and sacrum is needed to fully evaluate the screws to the pedicle, the foramen, and any bony element around, to ensure there has been no migration of the screws into the foramen. This would not be seen on an MRI. With reviewing the patient's most recent DEXA scan she still has significant osteoporosis despite being on Prolia. I need to ensure there is no bony skeletal problem contributing to this pain. 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 I suspect this is the source of pathology [facility] Other evaluation noteNo [email or web address] Other Evaluation noteNo assessment information available [facility] Work Phone: Evaluation noteNort eTect Other Evaluation note* Diagnosis Onset Date Resolution Status Chronic pain acute Inflammation of right sacroiliac joint acute Trochanteric bursitis acute Chronic pain acute DJD (degenerative joint disease), lumbosacral acute Inflammation of right sacroiliac joint acute [facility] Work Phone: Evaluation note* Diagnosis Onset Date Resolution Status Chronic pain acute Inflammation of right sacroiliac joint acute Trochanteric bursitis acute Chronic pain acute DJD (degenerative joint disease), lumbosacral acute Inflammation of right sacroiliac joint acute Chronic obstructive pulmonar y disease with (acute) exacerbation acute Chronic obstructive pulmonar y disease with (acute) lower respiratory infection acute [facility] Work Phone: evaluation note* Diagnosis Onset Date Resolution Status Inflammation of right sacroiliac joint acute Trochanteric bursitis acute DJD (degenerative joint disease), lumbosacral acute Inflammation of right sacroiliac joint acute Chronic bronchitis acute Hypothyroid acute Lumbar spondylosis acute BRET (obstructive sleep apnea) acute [facility] Work Phone: evaluation note* Diagnosis Onset Date Resolution Status Inflammation of right sacroiliac joint acute Trochanteric bursitis acute DJD (degenerative joint disease), lumbosacral acute Inflammation of right sacroiliac joint acute Chronic bronchitis acute Hypothyroid acute Lumbar spondylosis acute BRET (obstructive sleep apnea) acute DJD (degenerative joint disease), lumbosacral acute Inflammation of right sacroiliac joint acute [facility] Work Phone: evaluation note* Diagnosis Onset Date Resolution Status Inflammation of right sacroiliac joint acute Trochanteric bursitis acute DJD (degenerative joint disease), lumbosacral acute Inflammation of right sacroiliac joint acute Chronic bronchitis acute Hypothyroid acute Lumbar spondylosis acute BRET (obstructive sleep apnea) acute DJD (degenerative joint disease), lumbosacral acute Inflammation of right sacroiliac joint acute Acute bronchitis due to other specified organisms acute Acute exacerbation of chroni c obstructive airways disease noneactive [facility] Work Phone: evaluation note* Diagnosis Onset Date Resolution Status DJD (degenerative joint disease), lumbosacral acute Inflammation of right sacroiliac joint acute Chronic bronchitis acute Hypothyroid acute Lumbar spondylosis acute BRET (obstructive sleep apnea) acute DJD (degenerative joint disease), lumbosacral acute Inflammation of right sacroiliac joint acute Acute bronchitis due to other specified organisms acute Acute exacerbation of chroni c obstructive airways disease noneactive DJD (degenerative joint disease), lumbosacral acute Inflammation of right sacroiliac joint acute [facility] Work Phone: Evaluation note* Diagnosis Onset Date Resolution Status Chronic bronchitis acute Hypothyroid acute Lumbar spondylosis acute BRET (obstructive sleep apnea) acute DJD (degenerative joint disease), lumbosacral acute Inflammation of right sacroiliac joint acute Acute bronchitis due to other specified organisms acute Acute exacerbation of chroni c obstructive airways disease noneactive DJD (degenerative joint disease), lumbosacral acute Inflammation of right sacroiliac joint acute 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 acute DJD (degenerative joint disease), lumbosacral acute Inflammation of right sacroiliac joint acute [facility] Work Phone: Evaluation note* Diagnosis Onset Date Resolution Status DJD (degenerative joint disease), lumbosacral acute Inflammation of right sacroiliac joint acute Acute bronchitis due to other specified organisms acute Acute exacerbation of chroni c obstructive airways disease noneactive DJD (degenerative joint disease), lumbosacral acute Inflammation of right sacroiliac joint acute 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 acute DJD (degenerative joint disease), lumbosacral acute Inflammation of right sacroiliac joint acute Chronic bronchitis acute Hypothyroid acute Lower extremity edema acute BRET (obstructive sleep apnea) acute [facility] Work Phone: History general Narrative - Reported* Type Description Date Medical History Asthma Medical History Arthritis Medical History Hx Hernia Medical History Hx Thyroid disease Medical History Hx COPD Medical History Sleep apnea Medical History RIGHT HIP FRACTURE Surgical History right total knee arthroplasty 2 013 Surgical History right total hip arthroplasty 20 15 Surgical History Hysterectomy 1978 Surgical History Appendectomy 1974 Surgical History Bowel obstruction 1982 Surgical History RIGHT HIP FRACTURE S/P ORIF 2015 Surgical History INJECT TRIGGER POINT, 1 OR 2 20 17 Surgical History end of coccyx removal 2017 Surgical History Right Shoulder Arthr oscopy with Rotator Cuff Repair- Dr. Patel 08/01/2019 Surgical History tlif l5-s1 03/05/2021 Hospitalization History See above [facility] Other History general Narrative - Reported* Type Description Date Medical History Asthma Medical History Arthritis Medical History Hx Hernia Medical History Hx Thyroid disease Medical History Hx COPD Medical History Sleep apnea Medical History RIGHT HIP FRACTURE Surgical History right total knee arthroplasty 2 013 Surgical History right total hip arthroplasty 20 15 Surgical History Hysterectomy 1978 Surgical History Appendectomy 1974 Surgical History Bowel obstruction 1982 Surgical History RIGHT HIP FRACTURE S/P ORIF 2015 Surgical History INJECT TRIGGER POINT, 1 OR 2 20 17 Surgical History end of coccyx removal 2017 Surgical History Right Shoulder Arthr oscopy with Rotator Cuff Repair- Dr. Patel 08/01/2019 Surgical History tlif l5-s1 03/05/2021 Surgical History Total shoulder, left 02/2023 Hospitalization History See above [facility] Other History general Narrative - [email or web address] Other Hospital Discharge instructions Additional Instructions DISCHARGE INSTRUCTIONS TOTAL SHOULDER REPLACEMENT/REVERSE TOTAL SHOULDER REPLACEMENT ACTIVITY 1. No active motion to the involved shoulder. 2. Begin active elbow and wrist exercises today. 3. Begin gentle shoulder pendulum and table walk. 4. Utilize your sling during activity. It is OK to remove sling when sitting. 5. May need to sleep sitting up to prevent pain. 6. Ice shoulder for 20 minutes every hour as tolerated. 7. Try to keep hand elevated when lying/sitting 8. Driving It is OK to drive after 3 days IF not taking pain medication and able to drive with one arm. 9. May shower in 7-10 days with assistance. DRESSING 1. It is OK to remove dressing in 48 hours and leave open to air at times. 2. Reapply light gauze dressing. 3. Do NOT soak wound, it is OK to clean around it gently. MEDICATION 1. An oral antibiotic has been called to your pharmacy. You will need to pick this up 2. Take pain medications as directed around the clock for 24-48 hours to prevent extreme pain. It is OK to use Tylenol or Ibuprofen instead of pain medication. 3. Progressively decrease pain medication use as soon as possible. OTHER -Any problems call the office at [phone] or return to Emergency Room. If you are having excessive or persistent pain, swelling, fever (oral temp > 101), yellow- green foul smelling drainage or bleeding from incision, excessive redness of incision, nausea, vomiting, or any other problems, you should first call your surgeon for advice. If you are unable to contact your surgeon, seek help from a hospital emergency room. POST-OPERATIVE APPOINTMENT 1. Return to the office in one week; call the office at [phone] if your appointment has not been made already. Call [phone] for further questions.[facility] Work Phone: Summary Purpose Family History Relationship Condition Age at Onset Recorded Date/T brando father Coronary artery disease Unknown Myocardial infarction Unknown sister Malignant neoplasm Unknown sister Osteoarthritis Unknown brother Hypertension Unknown Malignant neoplasm Unknown Not Specified Multiple sclerosis Unknown Relationship Condition Age at Onset Recorded Date/T brando father Coronary artery disease Unknown Myocardial infarction Unknown sister Malignant neoplasm Unknown sister Osteoarthritis Unknown brother Hypertension Unknown Malignant neoplasm Unknown Not Specified Multiple sclerosis Unknown father Heart disease Unknown Unknown Not Specified Unknown Multiple sclerosis Unknown Relationship Condition Age at Onset Recorded Date/T brando father Coronary artery disease Unknown Myocardial infarction Unknown Unknown Heart disease Unknown sister Malignant neoplasm Unknown Osteoarthritis Unknown brother Hypertension Unknown Malignant neoplasm Unknown Not Specified Multiple sclerosis Unknown Relationship Condition Age at Onset Recorded Date/T brando father Coronary artery disease Unknown Myocardial infarction Unknown Unknown Heart disease Unknown sister Malignant neoplasm Unknown Osteoarthritis Unknown brother Hypertension Unknown Malignant neoplasm Unknown mother Multiple sclerosis Unknown Advance Directives Advance Directive Response Recorded Date/ Time Advance Directives No May 2:53pm Advance Directive Response Recorded Date/ Time Advance Directives No May 1:53pm Reason for Referral Reason 11/26/22 RIGHT HIP REPLACEMENT, RIGHT FEMUR HARDWARE Diagnosis 1 Right hip pain (M25. 551) Referral Organization [facility] [employer] [facility] Referring Provider First Name Barry Referring Provider Last Name Nicolas Referring Provider Specialty Pain Medici ne Referred Organization [facility] Referred Provider Coy Cassidy II Referred Address [address] [facility] Dee [address] [facility] Referred Provider Specialty Orthopedic S urgery Referral Priority Routine Referral Appointment Date 2022-11-26 General Notes Mouna Smith 11:34:14 AM >patient already on schedule with Dr Cassidy 11/26/22 at 10:30. Sending p2p at this time. Narda Liu 12/02/2022 08:35:54 AM >Office notes not locked yet Narda Liu 12/03/2022 07:50:26 AM >Sent telephone encounter to referring physician to let them know that the consult letter is ready for their review Reason Evaluate and Becky Diagnosis 1 Lumbar spondylosis ( M47.816) Referral Organization [facility] urosurgery Referring Provider First Name Benigno Referring Provider Last Name Marcia Referring Provider Specialty Neurologica l Surgery Referred Organization [facility] Pain Managemen t Referred Provider Sage Sweeneyif Referred Address [address],[address] Referred Provider Specialty Pain Medicin e Referral Priority Routine General Notes Not needed Chief Complaint and Reason for Visit Chief Complaint Screening Chief Complaint Screening m99.83 Chief Complaint Screening m99.83 g89.3 m54.50 z98.1 Chief Complaint m99.83 g89.3 m54.50 z98.1 Chief Complaint M25.551 Chief Complaint M25.551 m25.12 m24.812 Chief Complaint M25.551 m25.12 m24.812 Shoulder pain Shoulder pain Chief Complaint m25.12 m24.812 Shoulder pain Shoulder pain Z96.612 Chief Complaint Z96.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 Chief Complaint Z96.612 M75.102 total left shoulder reverse Screening Chief Complaint M75.102 total left shoulder reverse Screening Chief Complaint B12/Follow Up Chief Complaint B12/Follow Up M25.551 M25.[address] CASSIDY RIGHT SI & TROCH BURSA INJ/DS F/U AFTER R SI & BURSA Reason for Visit Chronic pain Inflammation of right sacroiliac joint Trochanteric bursitis Chronic pain DJD (degenerative joint disease), lumbosacral Inflammation of right sacroiliac joint Chief Complaint B12/Follow Up M25.551 M25.[address] CASSIDY RIGHT SI & TROCH BURSA INJ/DS F/U AFTER R SI & BURSA Cough, Chills-COVID Negative- [phone] Reason for Visit Chronic pain Inflammation of right sacroiliac joint Trochanteric bursitis Chronic pain DJD (degenerative joint disease), lumbosacral Inflammation of right sacroiliac joint Chronic obstructive pulmonary disease with (acute) exacerbation Chronic obstructive pulmonary disease with (acute) lower respiratory infection Chief Complaint B12/Follow Up M25.551 M25.[address] CASSIDY RIGHT SI & TROCH BURSA INJ/DS F/U AFTER R SI & BURSA Cough, Chills-COVID Negative- [phone] 6 month follow up Reason for Visit Inflammation of righ t sacroiliac joint Trochanteric bursitis DJD (degenerative joint disease), lumbosacral Inflammation of right sacroiliac joint Chronic bronchitis Hypothyroid Lumbar spondylosis BRET (obstructive sleep apnea) Chief Complaint M25.551 M25.[address] CASSIDY RIGHT SI & TROCH BURSA INJ/DS F/U AFTER R SI & BURSA Cough, Chills-COVID Negative- [phone] 6 month follow up RIGHT LUMBAR FACET MBB L3 L4 /VW Reason for Visit Inflammation of righ t sacroiliac joint Trochanteric bursitis DJD (degenerative joint disease), lumbosacral Inflammation of right sacroiliac joint Chronic bronchitis Hypothyroid Lumbar spondylosis BRET (obstructive sleep apnea) Chief Complaint M25.551 M25.[address] CASSIDY RIGHT SI & TROCH BURSA INJ/DS F/U AFTER R SI & BURSA Cough, Chills-COVID Negative- [phone] 6 month follow up RIGHT LUMBAR FACET MBB L3 L4 /VW F/U RIGHT LUMBAR FACET MBB Reason for Visit Inflammation of righ t sacroiliac joint Trochanteric bursitis DJD (degenerative joint disease), lumbosacral Inflammation of right sacroiliac joint Chronic bronchitis Hypothyroid Lumbar spondylosis BRET (obstructive sleep apnea) DJD (degenerative joint disease), lumbosacral Inflammation of right sacroiliac joint Chief Complaint M25.551 M25.[address] CASSIDY RIGHT SI & TROCH BURSA INJ/DS F/U AFTER R SI & BURSA Cough, Chills-COVID Negative- [phone] 6 month follow up RIGHT LUMBAR FACET MBB L3 L4 /VW F/U RIGHT LUMBAR FACET MBB Sinuses Reason for Visit Inflammation of righ t sacroiliac joint Trochanteric bursitis DJD (degenerative joint disease), lumbosacral Inflammation of right sacroiliac joint Chronic bronchitis Hypothyroid Lumbar spondylosis BRET (obstructive sleep apnea) DJD (degenerative joint disease), lumbosacral Inflammation of right sacroiliac joint Acute bronchitis due to other specified organisms Acute exacerbation of chronic obstructive airways disease Chief Complaint RIGHT SI & TROCH B URSA INJ/DS F/U AFTER R SI & BURSA Cough, Chills-COVID Negative- [phone] 6 month follow up RIGHT LUMBAR FACET MBB L3 L4 /VW F/U RIGHT LUMBAR FACET MBB Sinuses 1 MONTH OP SP RT THUMB PAIN Reason for Visit DJD (degenerative barrington int disease), lumbosacral Inflammation of right sacroiliac joint Chronic bronchitis Hypothyroid Lumbar spondylosis BRET (obstructive sleep apnea) DJD (degenerative joint disease), lumbosacral Inflammation of right sacroiliac joint Acute bronchitis due to other specified organisms Acute exacerbation of chronic obstructive airways disease DJD (degenerative joint disease), lumbosacral Inflammation of right sacroiliac joint Chief Complaint 6 month follow up RIGHT LUMBAR FACET MBB L3 L4 /VW F/U RIGHT LUMBAR FACET MBB Sinuses 1 MONTH OP SP RT THUMB PAIN 1 MONTH FOLLOW UP Reason for Visit Chronic bronchitis Hypothyroid Lumbar spondylosis BRET (obstructive sleep apnea) DJD (degenerative joint disease), lumbosacral Inflammation of right sacroiliac joint Acute bronchitis due to other specified organisms Acute exacerbation of chronic obstructive airways disease DJD (degenerative joint disease), lumbosacral Inflammation of right sacroiliac joint 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 DJD (degenerative joint disease), lumbosacral Inflammation of right sacroiliac joint Chief Complaint RIGHT LUMBAR FACET MBB L3 L4 /VW F/U RIGHT LUMBAR FACET MBB Sinuses 1 MONTH OP SP RT THUMB PAIN 1 MONTH FOLLOW UP leg swelling, lump on right leg Reason for Visit DJD (degenerative barrington int disease), lumbosacral Inflammation of right sacroiliac joint Acute bronchitis due to other specified organisms Acute exacerbation of chronic obstructive airways disease DJD (degenerative joint disease), lumbosacral Inflammation of right sacroiliac joint 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 DJD (degenerative joint disease), lumbosacral Inflammation of right sacroiliac joint Chronic bronchitis Hypothyroid Lower extremity edema BRET (obstructive sleep apnea) Additional Source Comments INFORMATION SOURCE (unrecogn ized section and content) DATE CREATED AUTHOR 04/15/2018 [facility] DATE CREATED AUTHOR AUTHOR'S FELICITASIZ ATION 06/22/2018 [facility] DATE CREATED AUTHOR AUTHOR'S ORGANIZ ATION 07/04/2018 [facility] DATE CREATED AUTHOR AUTHOR'S ORGANIZ ATION 12/07/2022 [facility] DATE CREATED AUTHOR AUTHOR'S ORGANIZ ATION 11/05/2023 [facility] DATE CREATED AUTHOR AUTHOR'S ORGANIZ ATION 03/18/2024 [facility] Specialists EPIC REASON FOR VISIT (unrecogniz ed section and content) OP SP RT HIP PAINUpdateBilat eral Hand Painmammogram rsultsmedicationRecheck L ShoulderLab ResultsCOVID Negativecongestion, coughing up green mucuspost op scriptscorrected MRI orderLeft Shoulder Painmessage6 MONTH FOLLOW UP / SHOULDER INJECTIONOrthopedic Office NotesProlia ShotF/U BRYAN SI JOINT AND TROCH BURSA INJECTIONB-12 ShotBRYAN SI JOINT AND TROCH BURSA INJECTION /VWLUMBAR PAINnew nebulizer machinef/u MRI L/S resultsInhalersf/u back pain w/xrayFOLLOW UP AFTER LT PIRIFORMIS/TROCH INJLEFT PIRIFORMIS & LEFT TROCH BURSA INJ /CJ3 month Follow up1 MONTH RECHECK1 MONTH FOLLOW UP AFTER PIRIFORMIS & BURSA/ MED REFILLf/u pain managementLEFT PIRIFPORMIS & LEFT TROCH BURSA INJ/DS1 MONTHF/U MRI [facility] F/U INJCT SCAN RESULTSLEFT INTRA-ARTICULAR & TROCH BURSA INJ/DSmed refillMRI RESULTS L/S Care Teams (unrecognized sec tion and content) Team Status: Active Member Role Status Dates Chucho Saravia DO Primary Care Provider Active Team Status: Active Member Role Status Dates Chucho Saravia DO Primary Care Provider Active Start: January 05, 2024 Barry Valenzuela MD Attending Provider Active Sta rt: January 05, 2024 Team Status: Inactive Member Role Status Dates Chucho Saravia DO Primary Care Provider Active Start: January 05, 2024 End: January 05, 2024 Barry Valenzuela MD Attending Provider Active Sta rt: January 05, 2024 End: January 05, 2024 Team Status: Inactive Member Role Status Dates Chucho Saravia DO Primary Care Provider Active Start: January 12, 2024 End: January 12, 2024 Barry Valenzuela MD Attending Provider Active Sta rt: January 12, 2024 End: January 12, 2024 Team Status: Inactive Member Role Status Dates Chucho Saravia DO Primary Care Provide r, Attending Provider Active Start: January 14, 2024 End: January 14, 2024 Team Status: Active Member Role Status Ann Saravia DO Primary Care Provide r, Attending Provider Active Start: January 31, 2024 Team Status: Inactive Member Role Status Ann Saravia DO Primary Care Provider Active Start: February 10, 2024 End: February 10, 2024 Barry Valenzuela MD Attending Provider Active Sta rt: February 10, 2024 End: February 10, 2024 Team Status: Inactive Member Role Status Dates Chucho Saravia DO Primary Care Provider Active Start: February 28, 2024 End: February 28, 2024 Barry Patel MD Attending Provider Active Star t: February 28, 2024 End: February 28, 2024 Team Status: Inactive Member Role Status Ann Saravia DO Primary Care Provider Active Start: March 13, 2024 End: March 13, 2024 Barry Valenzuela MD Attending Provider Active Sta rt: March 13, 2024 End: March 13, 2024 Team Status: Inactive Member Role Status Ann Saravia DO Primary Care Provide r, Attending Provider Active Start: March 31, 2024 End: March 31, 2024 Team Status: Active Member Role Status Ann Saravia DO Primary Care Provider Active Team Status: Inactive Member Role Status Ann Saravia DO Primary Care Provide r, Attending Provider Active Start: December 21, 2023 End: December 21, 2023 Team Status: Active Member Role Status Ann Saravia DO Primary Care Provider Active Start: January 05, 2024 Barry Valenzuela MD Attending Provider Active Sta rt: January 05, 2024 Team Status: Inactive Member Role Status Ann Saravia DO Primary Care Provider Active Start: January 05, 2024 End: January 05, 2024 Barry Valenzuela MD Attending Provider Active Sta rt: January 05, 2024 End: January 05, 2024 Team Status: Inactive Member Role Status Ann Saravia DO Primary Care Provider Active Start: January 12, 2024 End: January 12, 2024 Barry Valenzuela MD Attending Provider Active Sta rt: January 12, 2024 End: January 12, 2024 Team Status: Inactive Member Role Status Dates Chucho Ball , DO Primary Care Provide r, Attending Provider Active Start: January 14, 2024 End: January 14, 2024 Team Status: Active Member Role Status Ann Saravia DO Primary Care Provide r, Attending Provider Active Start: January 31, 2024 Team Status: Inactive Member Role Status Ann Saravia DO Primary Care Provider Active Start: February 10, 2024 End: February 10, 2024 Barry Valenzuela MD Attending Provider Active Sta rt: February 10, 2024 End: February 10, 2024 Team Status: Inactive Member Role Status Ann Saravia DO Primary Care Provider Active Start: February 28, 2024 End: February 28, 2024 Barry Patel MD Attending Provider Active Star t: February 28, 2024 End: February 28, 2024 Team Status: Inactive Member Role Status Ann Saravia DO Primary Care Provider Active Start: March 13, 2024 End: March 13, 2024 Barry Valenzuela MD Attending Provider Active Sta rt: March 13, 2024 End: March 13, 2024 Team Status: Active Member Role Status Ann Saravia DO Primary Care Provider Active Start: December 01, 2023 Barry Valenzuela MD Attending Provider Active Sta rt: December 01, 2023 Team Status: Inactive Member Role Status Ann Saravia DO Primary Care Provider Active Start: December 01, 2023 End: December 01, 2023 Barry Valenzuela MD Attending Provider Active Sta rt: December 01, 2023 End: December 01, 2023 Team Status: Inactive Member Role Status Ann Saravia DO Primary Care Provider Active Start: December 09, 2023 End: December 09, 2023 Barry Valenzuela MD Attending Provider Active Sta rt: December 09, 2023 End: December 09, 2023 Team Status: Inactive Member Role Status Ann Saravia DO Primary Care Provide r, Attending Provider Active Start: December 13, 2023 End: December 13, 2023 Team Status: Inactive Member Role Status Ann Saravia DO Attending Provider Active Sta rt: October 04, 2023 End: October 04, 2023 Team Status: Inactive Member Role Status Ann Saravia DO Primary Care Provider Active Start: November 03, 2023 End: November 03, 2023 Coy Cassidy II, MD Attending Provider Active Start: November 03, 2023 End: November 03, 2023 Team Status: Active Member Role Status Dates Chucho Ball , DO Primary Care Provider Active Barry Patel MD Attending Provider Active Team Status: Inactive Member Role Status Chucho Saravia , DO Primary Care Provider Active Barry Patel MD Attending Provider Active Team Status: Inactive Member Role Status Chucho Saravia , DO Primary Care Provider, Referring Pr ovider Active Referral Self Attending Provider Active Team Status: Inactive Member Role Status Chucho Saravia , DO Primary Care Provider Active Benigno Kennedy MD Attending Provider Active Team Status: Inactive Member Role Status Chucho Saravia , DO Primary Care Provider Active Barry Valenzuela MD Attending Provider Active Team Status: Inactive Member Role Status Chucho Saravia , DO Primary Care Provider Active Coy Cassidy II, MD Attending Provider Active Team Status: Active Member Role Status Chucho Saravia , DO Primary Care Provider Active Start: November 11, 2023 CARA Clifton Attending Provider Active Start : November 11, 2023 Team Status: Inactive Member Role Status Chucho Saravia , DO Primary Care Provider Active Start: November 25, 2023 End: November 25, 2023 Barry Valenzuela MD Attending Provider Active Sta rt: November 25, 2023 End: November 25, 2023 Team Status: Inactive Member Role Status Chucho Saravia , DO Primary Care Provide r, Attending Provider Active Start: March 31, 2024 End: March 31, 2024 Goals (unrecognized section and content) Goals may be documented in a n alternate section FOR RECORDS PERTAINING TO PATIENTS WHO ARE OR HAVE BEEN ENROLLED IN A CHEMICAL DEPENDENCY/SUBSTANCEABUSE PROGRAM, SOME INFORMATION MAY BE OMITTED. This clinical summary was aggregated from multiple sources. Caution should be exercised in using it in the provision of clinical care. This summary normalizes information from multiple sources, and as a consequence, information in this document may materially change the coding, format and clinical context of patient data. In addition, data may be omitted in some cases. CLINICAL DECISIONS SHOULD BE BASED ON THE PRIMARY CLINICAL RECORDS. [employer] provides no warranty or guarantee of the accuracy or completeness of information in this document.
--- NOTE | 2024-03-31 10:55 | XR_ITS ---
The [address] [address] Patient Name: NORIS ARCE MRN: [id number] date: 1945 Sex: F Assigned Patient Location: LAB Current Patient Location: Accession/Order Number: [id number] Exam Date: 03/31/2024 11:05 Report Date: 04/01/2024 07:06 At the request of: ARLENE MUNOZ Procedure: XR chest 2V EXAMINATION: XR chest 2V HISTORY: Bronchitis ; chronic shortness of breath COMPARISON: XR chest 11/30/2017 FINDINGS: LUNGS: Hyperexpanded lungs and stable mild stranding within lung bases. VASCULATURE: No increased pulmonary vasculature. PLEURA: No pneumothorax, effusion, or pleural thickening. CARDIAC: No cardiomegaly or cardiac silhouette abnormality. MEDIASTINUM: No visible mass or adenopathy. BONES: Prior right rotator cuff repair. Left shoulder replacement. OTHER: Negative. XR/XR chest 2V IMPRESSION: 1. No appreciable acute cardiopulmonary process. 2. Hyperexpanded lungs suggestive of COPD with mild chronic interstitial changes within lung bases. Electronically authenticated by: MARSHA NGUYEN Date: 04/01/2024 07:06
[2024-03-31 11:03] LABS: Basophils Absolute Auto 0.1 10^3/uL (0.0-0.1); Basophils Percent Auto 1.5 % (0.2-2.0); Eosinophils Absolute Auto 0.2 10^3/uL (0.0-0.7); Eosinophils Percent Auto 5.6 % (0.9-7.0); Hematocrit 37.6 % (36.0-48.0); Hemoglobin 11.8 g/dL (12.0-16.0); Immature Granulocytes Abs Auto 0.01 10^3/uL (0.00-0.03); Immature Granulocytes Pct Auto 0.2 % (0.0-0.5); Lymphocytes Absolute Auto 1.6 10^3/uL (1.2-3.8); Lymphocytes Percent Auto 38.5 % (20.5-60.0); Mean Corpuscular HGB Conc 31.4 g/dL (29.9-35.2); Mean Corpuscular Hemoglobin 28.6 pg (26.7-34.0); Monocytes Absolute Auto 0.4 10^3/uL (0.3-0.8); Monocytes Percent Auto 10.2 % (1.7-12.0); Neutrophils Absolute Auto 1.8 10^3/uL (1.4-6.5); Platelet Count 323 10^3/uL (150-450); Red Blood Count 4.13 10^6/uL (4.20-5.40); Red Cell Distribution Width 15.8 % (11.0-15.0); White Blood Count 4.1 10^3/uL (4.0-11.0)
[2024-03-31 11:05] LABS: Creatinine Urine Random <13.00 mg/dL (20.00-300.00)
[2024-03-31 11:17] LABS: Total Protein Urine Random <6.0 mg/dL (<=11.9)
[2024-03-31 11:25] LABS: Alanine Aminotransferase 29 U/L (14-59); Albumin Globulin Ratio 1.1; Albumin Level 3.7 g/dL (3.4-5.0); Alkaline Phosphatase 51 U/L (46-116); Anion Gap 11.5; Aspartate Amino Transferase 18 U/L (15-37); Bilirubin Total 0.4 mg/dL (0.2-1.0); Carbon Dioxide 28.6 mmol/L (21.0-32.0); Chloride 106 mmol/L (98-107); Estimated GFR (African America >60 (>=60); Estimated GFR (Non-African Ame >60 (>=60); Globulin 3.4 g/dL; Glucose 89 mg/dL (74-106); Potassium 4.1 mmol/L (3.5-5.1); Sodium 142 mmol/L (136-145); Total Protein 7.1 g/dL (6.4-8.2)
== END 2024-03-31 10:31 | disposition home or self-care (01) ==
LOC: LAB 10:34
PROVIDERS: PCP Internal Medicine; Visit Provider Internal Medicine
DX: J42 Unspecified chronic bronchitis (principal); D51.0 Vitamin B12 deficiency anemia due to intrinsic factor deficiency; E03.9 Hypothyroidism, unspecified; R60.0 Localized edema
CPT/HCPCS: 36415; 71046; 80053; 82570; 84156; 84443; 85025

== ENCOUNTER 2024-04-17 13:31 | Outpatient (OUT) | payer MEDICARE, OTHER, SELFPAY ==
--- OUTSIDE RECORDS SUMMARY | 2024-04-17 13:39 | XMS_ITS | CCD ---
Author Organization [facility] Care Team Providers Care Intensivist Name Role Phone LEIF, RENATA Unavailable Unavailable CHUCHO SARAVIA E Unavailable Unavailable LEIF, RENATA Unavailable Unavailable LEIF, RENATA Unavailable Unavailable CIRA BENDER Unavailable Unavailable CHUCHO SARAVIA Unavailable Unavailable Barry Valenzuela Unavailable Benigno Kennedy Unavailable DO Chucho Saravia Primary Care Provider DO Chucho Saravia Referring Provider Self, Referral Attending Provider Unavailable DO Chucho Saravia Primary Care Provider [phone] DO Chucho Saravia Referring Provider Self, Referral Attending Provider Unavailable MD Benigno Kennedy Attending Provider [phone] DO Chucho Saravia Primary Care Provider MD Barry Valenzuela Attending Provider [phone] Chucho Saravia Unavailable Radha Kennedy Unavailable REQUEST, [...] [employer] Unavailable Coy Cassidy II Unavailable Olecandace, Barry Unavailable DO Chucho Saravia Primary Care Provider MD Coy Cassidy II Attending Provider [phone] MD Barry Patel Attending Provider DO Chucho Saravia Primary Care Provider DO Chucho Saravia Primary Care Provider MD Barry Patel Attending Provider DO Chucho Saravia Referring Provider Self, Referral Attending Provider Unavailable DO Chucho Saravia Primary Care Provider MD Barry Patel Attending Provider DO Chucho Saravia Primary Care Provider MD Coy Cassidy II Attending Provider [phone] DO Chucho Saravia Primary Care Provider MD Coy Cassidy II Attending Provider AMISHA MUNOZ Attending Unavailable AMISHA MUNOZ Attending Unavailable ESTHER PALMER Attending Unavailable AMISHA MUNOZ Attending Unavailable DO Chucho Saravia Primary Care Provider MD Coy Cassidy II Attending Provider Olexa, Barry Admitting Unavailable Olexa, Barry Attending Unavailable Chucho Saravia Primary Care Unavailable Olexa, Barry Admitting Unavailable Olexa, Barry Attending Unavailable Chucho Saravia Primary Care Unavailable Coy Cassidy II Admitting Unavailabl e Coy Cassidy II Attending Unavailabl e Chucho Saravia Primary Care Unavailable Coy Cassidy II Admitting Unavailabl e Coy Cassidy II Attending Unavailabl e Chucho Saravia Primary Care Unavailable Self, Referral Admitting Unavailable Self, Referral Attending Unavailable Chucho Saravia Referring Unavailable Chucho Saravia Primary Care Unavailable Olexa, Barry Admitting Unavailable Olexa, Barry Attending Unavailable Chucho Saravia Primary Care Unavailable Allergies Allergy Classification Reported Allergen(s) Allergy Type Date of Onset Reaction(s) Facility (20 sources) Silk adhesive tape Propensity to adverse reactions rash [facility] Other (20 sources) Adhesive Tape; Translations: [Adhesive tape] Allergy to substance 1 Rash;blisterin g [facility] (10 sources) Adhesive Tape Drug allergy Unknown [facility] Other (20 sources) zoledronic acid Drug Allergy 4 Unknown, Unknown Reaction [facility] (3 sources) Allergies Reconciled Propensity to adverse reactions Unknown [facility] Other (3 sources) patient allergy list reviewed by nurse or physicia Propensity to adverse reactions 3 Comment:Done [facility] Other (13 sources) Mannitol; Translations: [mannitol] Drug Allergy 4 Unknown Reaction [facility] (13 sources) water for injection,steri le; Translations: [water for injection,steri le] Allergy to substance 4 Unknown Reaction [facility] (1 source) zoledronic acid Drug Allergy 4 [facility] Repository Medications Current Medications Medication Drug Class(es) Dates Sig (Normalized) Sig (Original) acetaminophen 325 mg / oxyCODONE hydrochloride 5 mg oral tablet (20 sources) Opioid Agonist Start: 02-23-2023 take 1 tablet by mouth every four hours as needed for pain Percocet 5-325 MG 1 tablet as needed for pain Orally up to every 4 hrs for 5 days GABE: [id number] January, Active Start: 05-27-2021 take 1 tablet [...] hours Oxycodone-Acetaminophen Discontinued 1 TAB PO Q6H 23 04January 17, 2019 July 17, 2019 3:12pm Start: [...] 25, 2017 12:00am April 07, 2018 11:40pm [id number] 200 actuat albuterol 0.09 mg/actuat metered dose [...] 17, 2019 12:00am October 28, 2020 9:32am cefuroxime 500 mg oral tablet (14 sources) Cephalosporin Antibacterial Start: 04-03-2024 take 500 mg by mouth twice daily Cefuroxime Axetil Active 500 MG PO Twice daily 10 April 03, 2024 12:00am Start: 01-13-2024 End: 03-31-2024 take 500 mg by mouth twice daily Cefuroxime Axetil Discontinued 500 MG PO Twice daily 07 01January 13, 2024 12:00am March 31, 2024 10:01am Start: 03-02-2023 take 1 tablet by raven th every twelve hours Cefuroxime Axetil 250 MG 1 tablet Orally every 12 hrs for 5 days Feb, Active cephalexin 500 mg oral capsule (20 sources) [...] twice daily for 7 days Sep, Active Fluticasone Propion-Salmeterol (20 sources) Corticosteroid, beta2-Adrenergic Agonist Start: 04-10-2024 take 1 puff(s) by inhalation twice daily Fluticasone Propion-Salmetero l Active 0 .ROUTE .COMPLEX 60 April 10, 2024 2:12pm INHALE 1 PUFF TWICE DAILY Start: 04-10-2024 End: 04-10-2024 Fluticasone Propion-Salmeter ol (Advair Diskus) 250-50 mcg/dose blister with device Discontinued 1 INH INHALATION Twice daily April 10, 2024 12:00am April 10, 2024 2:13pm Start: 11-17-2023 End: 12-13-2023 take 1 puff(s) [...] Twice a day Sep, Active Start: 10-22-2022 levothyroxine sodium 0.15 mg oral tablet (20 [...] take 1 tablet by raven once daily in the morning Levothyroxine Sodium 175 MCG 1 tablet in the morning on an empty stomach Orally Once a day Active methylPREDNISolone 4 mg oral tablet (2 sources) Corticosteroid Start: 11-03-2023 methylPREDNISolone 4 MG as directed Orally for 6 days Oct, Active mupirocin 0.02 mg/mg topical ointment (4 sources) RNA Synthetase Inhibitor Antibacterial Start: 03-31-2024 Mupirocin Active 1 APPLIC TOPICAL Twice daily 18 07March 31, 2024 12:00am niacin 50 mg oral tablet (20 sources) Nicotinic Acid Start: 12-13-2023 take 100 mg by mouth twice daily Niacin Active 100 MG PO Twice daily December 13, 2023 12:00am Start: 04-29-2023 take 2 tablets by mo [facility] [place] every twelve hours Niacin 50 MG 2 tablets Orally Twice a day for 30 days Apr, Not-Taking/PRN potassium chloride 20 meq powder for oral solution (20 sources) Start: 06-03-2017 take 20 mEq by mouth once daily Potassium Chloride (Klor-Con) 20 mEq Packet Active 20 MEQ PO Daily June 03, 2017 12:00am take 1 tablet by mouth once eimly y Potassium Chloride ER 20 MEQ Take 1 tablet by mouth once daily Active torsemide 20 mg oral tablet (4 sources) Loop Diuretic Start: 03-31-2024 take 20 mg by mouth once daily Torsemide Active 20 MG PO Daily 30 March 31, 2024 12:00am traMADol hydrochloride 50 mg oral tablet (20 sources) Opioid Agonist Start: 04-12-2023 take 1 tablet by mouth every four hours as needed for pain traMADol HCl 50 MG 1 tablet as needed for severe pain Orally up to every 4 hrs for 5 days GABE: [id number] Mar, Active Start: 03-21-2018 End: 04-07-2018 take [...] (20 sources) Opioid Agonist Start: 11-25-2023 End: 04-10-2024 take 1 tablet by mouth twice daily [...] Active Start: 09-02-2021 take 1 tablet by raven th twice [...] mouth every four to six hours Hydrocodone-Acetaminophen ([place]) 5-325 mg Tablet Discontinued 1 TAB PO [...] of dose azithromycin 250 mg oral tablet (17 sources) Macrolide Antimicrobial Start: 12-13-2023 End: 03-31-2024 [...] 1 tablet by mouth once daily Calcium Carbonate-Vitamin D3 (Calcium 600 + D(3)) 600 mg(1,500mg) -400 unit Tablet Discontinued 1 TAB PO Daily May 25, 2018 12:00am February 19, 2021 4:23pm cefepime 2000 mg injection (20 sources) Cephalosporin Antibacterial Start: 02-07-2019 End: 07-17-2019 take 2 g intravenously every twelve hours Cefepime Discontinued 2 GM IV Q12H February 07, 2019 12:00am July 17, 2019 3:12pm cholecalciferol 0.025 mg oral tablet (20 sources) [...] MCG PO Daily October 28, 2020 1:00am May 26th, 2021 4:19pm Start: 05-25-2018 End: 10-28-2020 take [...] 2021 4:23pm Cyclosporine (Restasis) 0.05 % Dropperette (18 sources) Start: 02-12-2023 End: 12-13-2023 Cyclosporine (Restasis) [...] 11, 2018 1:00am July 17, 2019 3:11pm furosemide 20 mg oral tablet (20 sources) [...] mL by inhalation every four hours Ipratropium Byers Discontinued 3 ML INHALATION Q4H February 12, 2023 12:00am December 13, 2023 10:14am Start: 11-20-2022 take 2.5 mL by inhal ation every six hours Ipratropium Byers 0.02 % 2.5 mL Inhalation every 6 [...] November 12, 2020 February 19, 2021 4:20pm predniSONE 20 mg oral tablet (20 sources) Start: 12-13-2023 End: 03-31-2024 Prednisone Discontinued 20 M G PO As Directed 12 6 January 14, 2024 12:00am March 31, 2024 5:00pm 1 tab tid w/ food x 2 [...] then take 1 tab for 3 days pregabalin 150 mg oral capsule (20 sources) Start: 08-25-2021 take 1 capsule by mouth every twelve hours Lyrica 150 MG 1 capsule Orally bid for 30 days Jul, Not-Taking Start: 07-24-2021 take 1 capsule by mo uth every twelve hours Lyrica 150 MG 1 capsule Orally bid for 30 days Jun, Active Start: 05-27-2021 take 1 capsule by mo uth every twelve hours Lyrica 75 MG 1 capsule Orally Twice a day for 30 days Apr, Active vitamin b12 1 mg/ml injectable solution (18 sources) Vitamin B12 Start: 02-12-2023 End: 12-13-2023 [...] 10-28-2020 take 5 mg intravenously once Zoledronic Yphk-Rtuhcngb-Ybsmu (Reclast) 5 mg/100 mL Piggyback Discontinued 5 [...] obstructive pulmonary disease and bronchiectasis Onset: 06-06-2018 Complication of device; implant or graft (3 sources) 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; Translations: [Pain due to internal orthopedic prosthetic devices, implants and grafts, initial encounter] Onset: 04-12-2024 04-12-2024 Episodic Complication of device; implant or graft (2 sources) Pain due to internal orthopedic prosthetic devices, implants and grafts, initial encounter; Translations: [Other complications due to internal joint prosthesis] 04-12-2024 Episodic Complications of surgical procedures or medical care [...] sources) High risk drug monitoring status; Translations: [rn long term care (current) use of opiate analgesic] Episodic Other aftercare (3 sources) Long-term current use of drug therapy; 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] Episodic Other aftercare (3 sources) Long-term current use of inhaled steroid; Translations: [rn long term care (current) use of inhaled steroids] Episodic Other [...] replacement, left] Chronic Other connective tissue disease (1 source) Presence of right artificial knee joint; Translations: [Presence of right artificial knee joint] Onset: 04-12-2024 Chronic Other connective tissue disease (20 sources) [...] right leg Episodic Other connective tissue disease (12 sources) Trochanteric bursitis; Translations: [Trochanteric bursitis, left hip] 11-25-2023 Episodic Other connective tissue disease (12 sources) Bursitis of hip; Translations: [Trochanteric bursitis, [...] pain] 11-25-2023 Chronic Other nervous system disorders (13 sources) Other chronic pain; Translations: [Other chronic [...] right wrist] Episodic Other non-traumatic joint disorders (20 sources) Hip pain; Translations: [Pain in left hip] 11-25-2023 Episodic Other non-traumatic joint disorders (3 sources) Pain in right hip Episodic Other non-traumatic joint disorders (2 sources) Pain in left shoulder Episodic Other non-traumatic joint disorders (5 sources) Pain in unspecified knee; Translations: [Knee pain] 04-10-2024 Episodic Other nutritional; endocrine; and metabolic disorders (20 sources) Obesity; Translations: [Obesity, unspecified] 10-11-2018 Chronic [...] nutritional; endocrine; and metabolic disorders (3 sources) Obesity, unspecified; Translations: [Obesity, unspecified] 03-31-2024 Chronic Other nutritional; endocrine; and metabolic disorders [...] sinusitis] Onset: 08-26-2015 Episodic Residual codes; unclassified (14 sources) Obstructive sleep apnea (adult) (pediatric); Translations: [Obstructive sleep apnea (adult)(pediatric)] Onset: 01-19-2022 Chronic Residual codes; unclassified (20 sources) Obstructive sleep apnea syndrome; Translations: [Obstructive sleep apnea (adult) (pediatric)] Onset: 10-26-2016 12-19-2023 Chronic Residual codes; unclassified (14 sources) Pain; Translations: [Pain, unspecified] 10-11-2018 Episodic Residual codes; unclassified (4 sources) Edema of lower extremity; Translations: [Localized edema] 03-31-2024 Episodic Residual codes; unclassified (4 sources) Localized edema; Translations: [Edema] 03-31-2024 Episodic Screening [...] shoulder, not specified as traumatic] Onset: 06-25-2023 Past or Other Problems Problem Classification Problem [...] object(s), not elsewhere classified, initial encounter; Translations: [CNTC OTH SHRP OB NOT ELSW CLASS INI] [...] 09-02-2021 Episodic Other aftercare (1 source) 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 [facility] Comment on above: Performed By: #### C RP, DDIMER, CBC, ESR #### [address] Automated basophil countOrde red By: Coy Cassidy on 04-12-2024 Basophils (Bld) [#/Vol] 0.1 10*3/uL Normal 0.0-0.2 [facility] Comment on above: Performed By: #### C RP, DDIMER, CBC, ESR #### [address] Automated blood monocyte cou ntOrdered By: Coy Cassidy on 04-12-2024 Monocytes (Bld) [#/Vol] 0.4 10*3/uL Normal 0.0-0.8 [facility] Comment on above: Performed By: #### C RP, DDIMER, CBC, ESR #### [address] Automated eosinophil %Ordere d By: Coy Cassidy on 04-12-2024 Eosinophils/100 WBC (Bld) 6.0 % Normal . [facility] Comment on above: Performed By: #### C RP, DDIMER, CBC, ESR #### [address] Automated eosinophil countOr dered By: Coy Cassidy on 04-12-2024 Eosinophils (Bld) [#/Vol] 0.3 10*3/uL Normal 0.0-0.45 [facility] Comment on above: Performed By: #### C RP, DDIMER, CBC, ESR #### [address] Automated monocyte %Ordered By: Coy Cassidy on 04-12-2024 Monocytes/100 WBC (Bld) 9.0 % Normal . [facility] Comment on above: Performed By: #### C RP, DDIMER, CBC, ESR #### [address] Automated neutrophil %Ordere d By: Coy Cassidy on 04-12-2024 Neutrophils/100 WBC (Bld) 44.4 % Normal . [facility] Comment on above: Performed By: #### C RP, DDIMER, CBC, ESR #### [address] C reactive protein [Mass/vol ume] in Serum or PlasmaOrdered By: Coy Cassidy on 04-12-2024 CRP [Mass/Vol] < 0.5 mg/dL 0.0-0.5 [facility] C-Reactive Proteinon 024 CRP [Mass/Vol] mg/L Normal 0.0-0.5 [facility] Comment on above: Result Comment: PERF ORMED BY: [place] [address] PATHOLOGIST CAN HANDLER POWER GUTIERREZ M.D. Performed By: #### C RP, DDIMER, CBC, ESR #### [address] Complete Blood Count Auto Di ffon 04-12-2024 Mean Corpuscular HGB Conc 32.9 g/dL Normal 32.0-35.0 [facility] Comment on above: Performed By: #### C RP, DDIMER, CBC, ESR #### [address] NRBC% 0.3 /100{WBC} Normal 0-0.5 [facility] Comment on above: Performed By: #### C RP, DDIMER, CBC, ESR #### [address] D-Dimer High Sensitivityon 0 04-12-2024 D-Dimer High Sensitivity 463 ng/mL High 0-243 [facility] Comment on above: Result Comment: The reference range for D-dimer is <243 ng/mL D-dimer units. D-dimer results must be used in conjunction with a clinical pretest probability (PTP) assessment model for deep vein thrombosis (DVT) and pulmonary embolism (PE). Results <230 ng/mL d-dimer units can be used as a negative predictor in patients with low or moderate probability for DVT/PE. Results above the exclusion threshold of 230 ng/ml D-dimer units for DVT/PE may indicate the need for further diagnostic testing. D-Dimer can be increased in hospitalized patients due to co-morbid conditions. A hematocrit value greater than 55% may lead to inaccurate results in coagulation testing. Patients having hematocrit values >55% require a special collection tube for coagulation studies. Please contact the laboratory at [phone] for redraw instructions. PERFORMED BY: [place] [address] PATHOLOGIST CAN HANDLER POWER GUTIERREZ M.D. Performed By: #### C RP, DDIMER, CBC, ESR #### [address] Erythrocyte Sedimentation Ra prabhjot 04-12-2024 ESR (Bld) [Velocity] 32 mm/h High 0-29 [facility] Comment on above: Result Comment: PERF ORMED BY: [place] [address] PATHOLOGIST CAN HANDLER POWER GUTIERREZ M.D. Performed By: #### C RP, DDIMER, CBC, ESR #### [address] Erythrocyte distribution wid th [Ratio] by Automated countOrdered By: Coy Cassidy on 04-12-2024 Erythrocyte distribution width (RBC) [Ratio] 16.4 % High 11.9-15.3 [facility] Comment on above: Performed By: #### C RP, DDIMER, CBC, ESR #### [facility] [address] Erythrocyte sedimentation ra te by Photometric methodOrdered By: Coy Cassidy on 04-12-2024 ESR Photometric method (Bld) [Velocity] 32 mm/hr High 0-29 [facility] Erythrocytes [#/volume] in B lood by Automated countOrdered By: Coy Cassidy on 04-12-2024 RBC (Bld) [#/Vol] 4.24 10*6/uL Normal 3.60-5.00 [facility] Comment on above: Performed By: #### C RP, DDIMER, CBC, ESR #### [facility] [address] Fibrin D-dimer [Presence] in Platelet poor plasma by Latex agglutinationOrdered By: Coy Cassidy on 04-12-2024 Fibrin D-dimer LA Ql (PPP) 463 ng/mL High 0-243 [facility] Comment on above: The reference range for D-dimer is <243 ng/mL D-dimer units.D-dimer results must be used in conjunction with a clinicalpretest probability (PTP) assessment model for deep veinthrombosis (DVT) and pulmonary embolism (PE). Results <230ng/mL d-dimer units can be used as a negative predictor inpatients with low or moderate probability for DVT/PE.Results above the exclusion threshold of 230 ng/ml D-dimerunits for DVT/PE may indicate the need for furtherdiagnostic testing.D-Dimer can be increased in hospitalized patients due toco-morbid conditions.A hematocrit value greater than 55% may lead to inaccurate results in coagulation testing. Patients having hematocrit values >55% require a special collection tube for coagulation studies. Please contact the laboratory at [phone] for redraw instructions. Hematocrit [Volume Fraction] of Blood by Automated countOrdered By: Coy Cassidy on 04-12-2024 Hematocrit (Bld) [Volume fraction] 36.9 % Normal 34.0-46.4 [facility] Comment on above: Performed By: #### C RP, DDIMER, CBC, ESR #### [facility] [address] Hemoglobin [Mass/volume] in BloodOrdered By: Coy Cassidy on 04-12-2024 Hemoglobin (Bld) [Mass/Vol] 12.2 g/dL Normal 11.8-15.4 [facility] Comment on above: Performed By: #### C RP, DDIMER, CBC, ESR #### [facility] [address] Leukocytes [#/volume] correc ana for nucleated erythrocytes in Blood by Automated counOrdered By: Coy Cassidy on 04-12-2024 WBC corrected for nucl RBC Auto (Bld) [#/Vol] 4.8 10*3/uL 3.8-11.6 [facility] Leukocytes [#/volume] in Blo od by Automated countOrdered By: Coy Cassidy on 04-12-2024 WBC (Bld) [#/Vol] 4.8 10*3/uL Normal 3.8-11.6 [facility] Comment on above: Performed By: #### C RP, DDIMER, CBC, ESR #### [address] Lymphocytes [#/volume] in Bl ood by Automated countOrdered By: Coy Cassidy on 04-12-2024 Lymphocytes (Bld) [#/Vol] 1.9 10*3/uL Normal 1.00-4.8 [facility] Comment on above: Performed By: #### C RP, DDIMER, CBC, ESR #### [facility] [address] [place] [address] [place] Lymphocytes/100 leukocytes i n Blood by Automated countOrdered By: Coy Cassidy on 04-12-2024 Lymphocytes/100 WBC (Bld) 38.6 % Normal . [facility] Comment on above: Performed By: #### C RP, DDIMER, CBC, ESR #### [address] MCH [Entitic mass] by Automa ana countOrdered By: Coy Cassidy on 04-12-2024 MCH (RBC) [Entitic mass] 28.7 pg Normal 24.7-34.3 [facility] Comment on above: Performed By: #### C RP, DDIMER, CBC, ESR #### [address] MCHC Auto (RBC) [Mass/Vol]Or dered By: Coy Cassidy on 04-12-2024 MCHC (RBC) [Mass/Vol] 32.9 g/dL 32.0-35.0 [facility] MCV [Entitic volume] by Auto mated countOrdered By: Coy Cassidy on 04-12-2024 MCV (RBC) [Entitic vol] 87.1 fL Normal 80-100 [facility] Comment on above: Performed By: #### C RP, DDIMER, CBC, ESR #### [address] Neutrophils [#/volume] in Bl ood by Automated countOrdered By: Coy Cassidy on 04-12-2024 Neutrophils (Bld) [#/Vol] 2.1 10*3/uL Normal 1.8-7.7 [facility] Comment on above: Performed By: #### C RP, DDIMER, CBC, ESR #### [address] Nucleated erythrocytes [Pres ence] in Blood by Automated countOrdered By: Coy Cassidy on 04-12-2024 Nucleated RBC Auto Ql (Bld) 0.3 /100{WBC} 0-0.5 [facility] Platelet mean volume [Entiti c volume] in Blood by Automated countOrdered By: Coy Cassidy on 04-12-2024 Platelet mean volume (Bld) [Entitic vol] 8.5 fL Normal 6.3-10.7 [facility] Comment on above: Performed By: #### C RP, DDIMER, CBC, ESR #### [place] [id number] [facility] Platelets [#/volume] in Bloo d by Automated countOrdered By: Coy Cassidy on 04-12-2024 Platelets (Bld) [#/Vol] 380 10*3/uL Normal 150-450 [facility] Comment on above: Performed By: #### C RP, DDIMER, CBC, ESR #### [facility] [address] [place] [id number] [facility] Basophils Auto (Bld) [#/Vol] on 03-31-2024 Basophils (Bld) [#/Vol] 0.1 10 3/uL 0.0-0.1 [facility] Basophils/100 WBC Auto (Bld) on 03-31-2024 Basophils/100 WBC (Bld) 1.5 % 0.2-2.0 [facility] Eosinophils/100 WBC Auto (Bl d)on 03-31-2024 Eosinophils/100 WBC (Bld) 5.6 % 0.9-7.0 [facility] Erythrocyte distribution wid th Auto (RBC) [Ratio]on 03-31-2024 Erythrocyte distribution width (RBC) [Ratio] 15.8 % High 11.0-15.0 [facility] Estimated glomerular filtrat ion rate (GFR) non- Americanon 03-31-2024 GFR/1.73 sq M.predicted among non-blacks MDRD (S/P/Bld) [Vol rate/Area] mL/min/{1.73_m2} >=60 [facility] Globulin Calc (S) [Mass/Vol] on 03-31-2024 Globulin (S) [Mass/Vol] 3.4 g/dL [facility] Hematocrit Auto (Bld) [Volum e fraction]on 03-31-2024 Hematocrit (Bld) [Volume fraction] 37.6 % 36.0-48.0 [facility] Hemoglobin [Mass/volume] in Bloodon 03-31-2024 Hemoglobin (Bld) [Mass/Vol] 11.8 g/dL Low 12.0-16.0 [facility] Laboratory - Chemistry and C hemistry - challengeon 03-31-2024 Albumin [Mass/Vol] 3.7 g/dL 3.4-5.0 [facility] ALP [Catalytic activity/Vol] 51 U/L 46-116 [facility] ALT [Catalytic activity/Vol] 29 U/L 14-59 [facility] AST [Catalytic activity/Vol] 18 U/L 15-37 [facility] Bilirubin [Mass/Vol] 0.4 mg/dL 0.2-1.0 [facility] Calcium [Mass/Vol] 9.0 mg/dL 8.5-10.1 [facility] Chloride [Moles/Vol] 106 mmol/L 98-107 [facility] [facility] CO2 [Moles/Vol] 28.6 mmol/L 21.0-32.0 [facility] Creatinine [Mass/Vol] 0.88 mg/dL 0.55-1.02 [facility] GFR/1.73 sq M.predicted MDRD (S/P/Bld) [Vol rate/Area] mL/min/{1.73_m2} >=60 [facility] Glucose [Mass/Vol] 89 mg/dL 74-106 [facility] Potassium [Moles/Vol] 4.1 mmol/L 3.5-5.1 [facility] Protein [Mass/Vol] 7.1 g/dL 6.4-8.2 [facility] Sodium [Moles/Vol] 142 mmol/L 136-145 [facility] TSH Qn 2.110 m[IU]/L 0.358-3.740 [facility] Urea nitrogen [Mass/Vol] 15.0 mg/dL 7.0-18.0 [facility] Urea nitrogen/Creatinine [Mass ratio] 17.0 mg/mg [facility] Laboratory - Hematology and Cell countson 03-31-2024 Immature granulocytes/100 WBC (Bld) 0.2 % 0.0-0.5 [facility] Leukocytes [#/volume] correc ana for nucleated erythrocytes in Blood by Automated counon 03-31-2024 WBC corrected for nucl RBC Auto (Bld) [#/Vol] 4.1 10 3/uL 4.0-11.0 [facility] Lymphocytes Auto (Bld) [#/Vo l]on 03-31-2024 Lymphocytes (Bld) [#/Vol] 1.6 10 3/uL 1.2-3.8 [facility] Lymphocytes/100 WBC Auto (Bl d)on 03-31-2024 Lymphocytes/100 WBC (Bld) 38.5 % 20.5-60.0 [facility] MCH Auto (RBC) [Entitic mass ]on 03-31-2024 MCH (RBC) [Entitic mass] 28.6 pg 26.7-34.0 [facility] MCHC Auto (RBC) [Mass/Vol]on 03-31-2024 MCHC (RBC) [Mass/Vol] 31.4 g/dL 29.9-35.2 [facility] MCV Auto (RBC) [Entitic vol] on 03-31-2024 MCV (RBC) [Entitic vol] 91.0 fL 81.0-99.0 [facility] Monocytes Auto (Bld) [#/Vol] on 03-31-2024 Monocytes (Bld) [#/Vol] 0.4 10 3/uL 0.3-0.8 [facility] Monocytes/100 WBC Auto (Bld) on 03-31-2024 Monocytes/100 WBC (Bld) 10.2 % 1.7-12.0 [facility] Neutrophils Auto (Bld) [#/Vo l]on 03-31-2024 Neutrophils (Bld) [#/Vol] 1.8 10 3/uL 1.4-6.5 [facility] Neutrophils/100 WBC Auto (Bl d)on 03-31-2024 Neutrophils/100 WBC (Bld) 44.0 % 43.0-75.0 [facility] No Panel Informationon 03-31 Eosinophils # (Auto) 0.2 10 3/uL 0.0-0.7 [facility] Immature Granulocyte # (Auto) 0.01 10 3/uL 0.00-0.03 [facility] Urine Random Creatinine <13.00 mg/dL Low 20.00-300.0 0 [facility] Urine Random Total Protein <6.0 mg/dL <=11.9 [facility] Platelet mean volume Auto (B ld) [Entitic vol]on 03-31-2024 Platelet mean volume (Bld) [Entitic vol] 10.0 fL 9.5-13.5 [facility] Platelets Auto (Bld) [#/Vol] on 03-31-2024 Platelets (Bld) [#/Vol] 323 10 3/uL 150-450 [facility] RBC Auto (Bld) [#/Vol]on RBC (Bld) [#/Vol] 4.13 10 6/uL Low 4.20-5.40 [facility] Serum or plasma albumin/glob ulin mass ratioon 03-31-2024 Albumin/Globulin [Mass ratio] 1.1 {ratio} [facility] Serum or plasma anion gap de terminationon 03-31-2024 Anion gap [Moles/Vol] 11.5 mmol/L [facility] Urine protein/creatinine rat ioon 03-31-2024 Protein/Creatinine (U) [Ratio] 0.00 [facility] Estimated glomerular filtrat ion rate (GFR) non- Americanon 01-31-2024 GFR/1.73 sq M.predicted among non-blacks MDRD (S/P/Bld) [Vol rate/Area] mL/min/{1.73_m2} >=60 [facility] Laboratory - Chemistry and C hemistry - challengeon 01-31-2024 Calcium [Mass/Vol] 9.9 mg/dL 8.5-10.1 [facility] Chloride [Moles/Vol] 108 mmol/L High 98-107 [facility] CO2 [Moles/Vol] 25.0 mmol/L 21.0-32.0 [facility] Creatinine [Mass/Vol] 0.80 mg/dL 0.55-1.02 [facility] GFR/1.73 sq M.predicted MDRD (S/P/Bld) [Vol rate/Area] mL/min/{1.73_m2} >=60 [facility] Glucose [Mass/Vol] 85 mg/dL 74-106 [facility] Potassium [Moles/Vol] 4.4 mmol/L 3.5-5.1 [facility] Sodium [Moles/Vol] 143 mmol/L 136-145 [facility] Urea nitrogen [Mass/Vol] 26.0 mg/dL High 7.0-18.0 [facility] Urea nitrogen/Creatinine [Mass ratio] 32.5 mg/mg [facility] No Panel Informationon 01-30 25-Hydroxy Vitamin D Total 75.9 ng/mL [facility] Comment on above: <20 ng/mL Vit D defi cient20-<30 ng/mL Vit D [id number] ng/mL Vit D sufficient>100 ng/mL Potential Toxicity Serum or plasma anion gap de terminationon 01-31-2024 Anion gap [Moles/Vol] 14.4 mmol/L [facility] hip BI w [id number] 11-03-19 24 XR hip BI w [id number] [facility] [place] [place] [address] XRay Report Signed Patient: Tiana Louis MR#: [id number] : 1945 Acct:[id number] Age/Sex: 78 / F ADM Date: 11/03/23 Loc: [facility] Room: Type: [facility] Attending Dr: Coy Cassidy II, MD [...] Tomeka Obando M.D.11/03/2023 11:09 AM Dictation Location: [facility]12 Transcribed By: [facility] 11/03/23 110 Dictated By: Tomeka Obando MD 11/03/23 110 Signed By: 11/03/23 110 Normal [facility] XR hand BI 3Von 07-13-2023 XR hand BI 3V [facility] [address] [address] XRay Report Signed Patient: Tiana Louis MR#: [id number] : 1945 Acct:[id number] Age/Sex: 78 / F ADM Date: 07/13/23 Loc: [facility] Room: Type: [facility] Attending Dr: Barry Patel MD Copies [...] Vaibhav Lemus M.D.07/13/2023 4:07 PM Dictation Location: [place] [address] Transcribed By: [facility] 07/13/23 1607 Dictated By: Vaibhav Lemus DO 07/13/23 1606 Signed By: 07/13/23 1607 Normal [facility] MM screening mammo BI w/CADo n 07-08-2023 MM screening mammo BI w/CAD [address] [address] Mammography Report Signed Patient: Tiana Louis MR#: [id number] : 1945 Acct:[id number] Age/Sex: 78 / F ADM Date: 07/08/23 Loc: [place] Room: Type: [facility] Attending Dr: Referral Self Copies to: Chucho Saravia, SELF,REFERRAL Ordering Provider: SELF,REFERRAL Date of Service: [...] Tomeka Obando M.D.07/08/2023 2:27 PM Dictation Location: [facility] Transcribed By: STEF 07/08/231426 Dictated By: Tomeka Obando MD 07/08/231422 Signed By: 07/08/231426 Normal [facility] XR shoulder LT min 2V*on XR shoulder LT min 2V* [facility] [place] [address] XRay Report Signed Patient: Tiana Louis MR#: [id number] : 1945 Acct:[id number] Age/Sex: 78 / F ADM Date: 06/08/23 Loc: [facility] Room: Type: [facility] Attending Dr: Barry Patel MD Copies [...] Tomeka Obando M.D.06/08/2023 4:48 PM Dictation Location: [place] [address] Transcribed By: [facility] 06/08/23 1648 Dictated By: Tomeka Obando MD 06/08/23 1637 Signed By: 06/08/23 1648 Normal [facility] Alanine aminotransferase [En zymatic activity/volume] in Serum or PlasmaOrdered By: Barry Patel on 02-12-2023 ALT [Catalytic activity/Vol] 17 U/L 7-52 [facility] Albumin [Mass/volume] in Ser um or Plasma by Bromocresol green (BCG) dye binding methoOrdered By: Barry Patel on 02-12-2023 Albumin BCG dye [Mass/Vol] 4.0 g/dL 3.5-5.7 [facility] Alkaline phosphatase [Enzyma tic activity/volume] in Serum or PlasmaOrdered By: Barry Patel on 02-12-2023 ALP [Catalytic activity/Vol] 46 U/L 34-104 [facility] Aspartate aminotransferase [ Enzymatic activity/volume] in Serum or PlasmaOrdered By: Barry Patel on 02-12-2023 AST [Catalytic activity/Vol] 14 U/L 13-39 [facility] Basophils Auto (Bld) [#/Vol] Ordered By: Barry Patel on 02-12-2023 Basophils (Bld) [#/Vol] 0.1 10*3/uL 0.0-0.2 [facility] Basophils/100 WBC Auto (Bld) Ordered By: Barry Patel on 02-12-2023 Basophils/100 WBC (Bld) 2.1 % . [facility] Bilirubin.total [Mass/volume ] in Serum or PlasmaOrdered By: Barry Patel on 02-12-2023 Bilirubin [Mass/Vol] 0.4 mg/dL 0.3-1.0 [facility] Calcium [Mass/volume] in Ser um or PlasmaOrdered By: Barry Patel on 02-12-2023 Calcium [Mass/Vol] 9.6 mg/dL 8.6-10.3 [facility] Carbon dioxide, total [Moles /volume] in Serum or PlasmaOrdered By: Barry Patel on 02-12-2023 CO2 [Moles/Vol] 24.6 mmol/L 21.0-31.0 [facility] Chloride [Moles/volume] in S dulce or PlasmaOrdered By: Barry Patel on 02-12-2023 Chloride [Moles/Vol] 112 mmol/L 98-107 [facility] Creatinine [Mass/volume] in Serum or PlasmaOrdered By: Barry Patel on 02-12-2023 Creatinine [Mass/Vol] 0.78 mg/dL 0.60-1.20 [facility] Eosinophils Auto (Bld) [#/Vo l]Ordered By: Barry Patel on 02-12-2023 Eosinophils (Bld) [#/Vol] 0.5 10*3/uL 0.0-0.45 [facility] Eosinophils/100 WBC Auto (Bl d)Ordered By: Barry Patel on 02-12-2023 Eosinophils/100 WBC (Bld) 10.5 % . [facility] Erythrocyte distribution wid th Auto (RBC) [Ratio]Ordered By: Barry Patel on 02-12-2023 Erythrocyte distribution width (RBC) [Ratio] 14.7 % 11.9-15.3 [facility] Globulin Calc (S) [Mass/Vol] Ordered By: Barry Patel on 02-12-2023 Globulin (S) [Mass/Vol] 2.4 g/dL [facility] Glucose [Mass/volume] in Ser um or PlasmaOrdered By: Barry Patel on 02-12-2023 Glucose [Mass/Vol] 68 mg/dL 70-100 [facility] Hematocrit Auto (Bld) [Volum e fraction]Ordered By: Barry Patel on 02-12-2023 Hematocrit (Bld) [Volume fraction] 38.2 % 34.0-46.4 [facility] Hemoglobin [Mass/volume] in BloodOrdered By: Barry Patel on 02-12-2023 Hemoglobin (Bld) [Mass/Vol] 12.4 g/dL 11.8-15.4 [facility] Leukocytes [#/volume] correc ana for nucleated erythrocytes in Blood by Automated counOrdered By: Barry Patel on 02-12-2023 WBC corrected for nucl RBC Auto (Bld) [#/Vol] 4.6 10*3/uL 3.8-11.6 [facility] Lymphocytes Auto (Bld) [#/Vo l]Ordered By: Barry Patel on 02-12-2023 Lymphocytes (Bld) [#/Vol] 1.5 10*3/uL 1.00-4.8 [facility] Lymphocytes/100 WBC Auto (Bl d)Ordered By: Barry Patel on 02-12-2023 Lymphocytes/100 WBC (Bld) 31.3 % . [facility] MCH Auto (RBC) [Entitic mass ]Ordered By: Barry Patel on 02-12-2023 MCH (RBC) [Entitic mass] 29.7 pg 24.7-34.3 [facility] MCHC Auto (RBC) [Mass/Vol]Or dered By: Barry Patel on 02-12-2023 MCHC (RBC) [Mass/Vol] 32.5 g/dL 32.0-35.0 [facility] MCV Auto (RBC) [Entitic vol] Ordered By: Barry Patel on 02-12-2023 MCV (RBC) [Entitic vol] 91.4 fL 80-100 [facility] Monocytes Auto (Bld) [#/Vol] Ordered By: Barry Patel on 02-12-2023 Monocytes (Bld) [#/Vol] 0.5 10*3/uL 0.0-0.8 [facility] Monocytes/100 WBC Auto (Bld) Ordered By: Barry Patel on 02-12-2023 Monocytes/100 WBC (Bld) 9.9 % . [facility] Neutrophils Auto (Bld) [#/Vo l]Ordered By: Barry Patel on 02-12-2023 Neutrophils (Bld) [#/Vol] 2.1 10*3/uL 1.8-7.7 [facility] Neutrophils/100 WBC Auto (Bl d)Ordered By: Barry Patel on 02-12-2023 Neutrophils/100 WBC (Bld) 46.2 % . [facility] No Panel InformationOrdered By: Barry Patel on 02-12-2023 Estimated GFR (CKD-EPI) > 60.0 mL/Min [facility] Creatinine Clearance (Chem N/A [facility] Nucleated erythrocytes [Pres ence] in Blood by Automated countOrdered By: Barry Patel on 02-12-2023 Nucleated RBC Auto Ql (Bld) 0.0 /100{WBC} 0-0.5 [facility] Platelet mean volume Auto (B ld) [Entitic vol]Ordered By: Barry Patel on 02-12-2023 Platelet mean volume (Bld) [Entitic vol] 8.3 fL 6.3-10.7 [facility] Platelets Auto (Bld) [#/Vol] Ordered By: Barry Patel on 02-12-2023 Platelets (Bld) [#/Vol] 287 10*3/uL 150-450 [facility] Potassium [Moles/volume] in Serum or PlasmaOrdered By: Barry Patel on 02-12-2023 Potassium [Moles/Vol] 4.9 mmol/L 3.5-5.1 [facility] Protein [Mass/volume] in Ser um or PlasmaOrdered By: Barry Patel on 02-12-2023 Protein [Mass/Vol] 6.4 g/dL 6.4-8.9 [facility] RBC Auto (Bld) [#/Vol]Ordere d By: Barry Patel on 02-12-2023 RBC (Bld) [#/Vol] 4.18 10*6/uL 3.60-5.00 [facility] Serum or plasma albumin/glob ulin mass ratioOrdered By: Barry Patel on 02-12-2023 Albumin/Globulin [Mass ratio] 1.7 {ratio} [facility] Serum or plasma anion gap de terminationOrdered By: Barry Patel on 02-12-2023 Anion gap [Moles/Vol] 11.3 mmol/L 6.0-15.0 [facility] Sodium [Moles/volume] in Ser um or PlasmaOrdered By: Barry Patel on 02-12-2023 Sodium [Moles/Vol] 143 mmol/L 136-145 [facility] Urea nitrogen [Mass/volume] in Serum or PlasmaOrdered By: Barry Patel on 02-12-2023 Urea nitrogen [Mass/Vol] 24 mg/dL 7-25 [facility] WBC Auto (Bld) [#/Vol]Ordere d By: Barry Patel on 02-12-2023 WBC (Bld) [#/Vol] 4.6 10*3/uL 3.8-11.6 [facility] CBC AUTO DIFFon 11-17-2022 BASO # 0.0 103/ul Normal 0.0-0.1 [facility] Comment on above: Performed By: #### D ATCBC #### [facility] [address] [place] [address] [address] Jackeline Thakkar Basophils/100 WBC (Bld) 0.8 % Normal 0.2-2.0 [facility] Comment on above: Performed By: #### D ATCBC #### [facility] [address] [address] [address] Jackeline Thakkar EO # 0.1 103/ul Normal 0.0-0.7 [facility] Comment on above: Performed By: #### D ATCBC #### [facility] [address] [place] [address] [address] Jackeline Thakkar Eosinophils/100 WBC (Bld) 2.4 % Normal 0.9-7.0 [facility] Comment on above: Performed By: #### D ATCBC #### [facility] [address] [address] [address] Jackeline Thakkar Erythrocyte distribution width (RBC) [Ratio] 14.4 % Normal 11.0-15.0 [facility] Comment on above: Performed By: #### D ATCBC #### [facility] [address] [address] [address] Jackeline Thakkar Hematocrit (Bld) [Volume fraction] 40.8 % Normal 36.0-48.0 [facility] Comment on above: Performed By: #### D ATCBC #### [facility] [address] [address] [address] Jackeline Thakkar Hemoglobin (Bld) [Mass/Vol] 13.5 g/dL Normal 12.0-16.0 [facility] Comment on above: Performed By: #### D ATCBC #### [facility] [address] [place] [address] Dr. Jackeline Thakkar IG # 0.01 10e3/ul Normal 0.00-0.03 [facility] Comment on above: Performed By: #### D ATCBC #### [facility] [address] [place] [address] Dr. Jackeline Thakkar IG % 0.2 % Normal 0.0-0.5 [facility] Comment on above: Performed By: #### D ATCBC #### [facility] [address] [place] [address] Dr. Jackeline Thakkar LYMPH # 1.4 103/ul Normal 1.2-3.8 [facility] Comment on above: Performed By: #### D ATCBC #### [facility] [address] [place] [address] Dr. Jackeline Thakkar Lymphocytes/100 WBC (Bld) 29.2 % Normal 20.5-60.0 [facility] Comment on above: Performed By: #### D ATCBC #### [facility] [address] [place] [address] Dr. Jackeline Thakkar MCH (RBC) [Entitic mass] 30.1 pg Normal 26.7-34.0 [facility] Comment on above: Performed By: #### D ATCBC #### [facility] [address] [place] [address] Dr. Jackeline Thakkar MCHC (RBC) [Mass/Vol] 33.1 g/dL Normal 29.9-35.2 [facility] Comment on above: Performed By: #### D ATCBC #### [facility] [address] [place] [address] Dr. Jackeline Thakkar MCV (RBC) [Entitic vol] 91.1 fL Normal 81.0-99.0 [facility] Comment on above: Performed By: #### D ATCBC #### [facility] [address] [place] [address] Dr. Jackeline Thakkar MONO # 0.6 103/ul Normal 0.3-0.8 [facility] Comment on above: Performed By: #### D ATCBC #### [facility] [address] [place] [address] Dr. Jackeline Thakkar Monocytes/100 WBC (Bld) 11.4 % Normal 1.7-12.0 [facility] Comment on above: Performed By: #### D ATCBC #### [facility] [address] [place] [address] Dr. Jackeline Thakkar NEUT # 2.8 103/ul Normal 1.4-6.5 [facility] Comment on above: Performed By: #### D ATCBC #### [facility] [address] [place] [address] Dr. Jackeline Thakkar Neutrophils/100 WBC (Bld) 56.0 % Normal 43.0-75.0 [facility] Comment on above: Performed By: #### D ATCBC #### [facility] [address] [place] [address] Dr. Jackeline Thakkar Platelet mean volume (Bld) [Entitic vol] 9.8 fL Normal 9.5-13.5 [facility] Comment on above: Performed By: #### D ATCBC #### [facility] [address] [place] [address] Dr. Jackeline Thakkar PLT 352 103/ul Normal 150-450 [facility] Comment on above: Performed By: #### D ATCBC #### [facility] [address] [place] [address] Dr. Jackeline Thakkar RBC 4.48 106/ul Normal 4.20-5.40 [facility] Comment on above: Performed By: #### D ATCBC #### [facility] [address] [place] [address] Dr. Jackeline Thakkar WBC 4.9 103/ul Normal 4.0-11.0 [facility] Comment on above: Performed By: #### D ATCBC #### [facility] [address] [place] [address] Dr. Jackeline Thakkar RYLAN - VITAMIN Don 11-17-2022 VIT D 25-OH 70.3 ng/mL Normal [facility] Comment on above: Performed By: #### D ATJEFF DATBMP #### [facility] [address] [place] [address] Dr. Jackeline Thakkar VIT D RANGES SEE BELOW Normal [facility] Comment on above: Result Comment: <20 ng/mL Vit D deficient 20 - <30 ng/mL Vit D insufficient 30 - 100 ng/mL Vit D sufficient >100 ng/mL Potential Toxicity Performed By: #### D SUMMER DATBMP #### [facility] [address] [place] [address] Dr. Jackeline Thakkar RYLAN- BMP WITH LIPIDon 2022 Anion gap [Moles/Vol] 13.4 mmol/L Normal [facility] Comment on above: Performed By: #### D ATMAURATBelle, DATBMP #### [facility] [address] [place] [address] Dr. Jackeline Thakkar Calcium [Mass/Vol] 9.7 mg/dL Normal 8.5-10.1 [facility] Comment on above: Performed By: #### D ATMAURATBelle, DATBMP #### [facility] [address] [place] [address] Dr. Jackeline Thakkar Chloride [Moles/Vol] 106 mmol/L Normal 98-107 [facility] Comment on above: Performed By: #### D ATMAURATBelle, DATBMP #### [facility] [address] [place] [address] Dr. Jackeline Thakkar Cholesterol [Mass/Vol] 291 mg/dL Critically high <=200 [facility] Comment on above: Performed By: #### D ATVITD, DATBMP #### [facility] [address] [address] [address] Jackeline Thakkar Cholesterol in HDL [Mass/Vol] 70 mg/dL Critically high 40-60 [facility] Comment on above: Performed By: #### D ATVITD, DATBMP #### [facility] [address] [address] [address] Jackeline Thakkar Cholesterol in LDL [Mass/Vol] 193.6 mg/dL Normal [facility] Comment on above: Performed By: #### D ATVITD, DATBMP #### [facility] [address] [address] [address] Jackeline Thakkar CO2 [Moles/Vol] 20.9 mmol/L Critically low 21.0-32.0 [facility] Comment on above: Performed By: #### D ATJEFF DATBMP #### [facility] [address] [place] [address] Dr. Jackeline Thakkar Creatinine [Mass/Vol] 0.75 mg/dL Normal 0.55-1.02 [facility] Comment on above: Performed By: #### D ATMAURATBelle DATBMP #### [facility] [address] [place] [address] Dr. Jackeline Thakkar EGFR-AF CHINESE >60 Normal >=60 [facility] Comment on above: Performed By: #### D ATMAURATBelle DATBMP #### [facility] [address] [place] [address] Dr. Jackeline Thakkar EGFR-NON AF CHINESE >60 Normal >=60 [facility] Comment on above: Performed By: #### D ATVITD, DATBMP #### [facility] [address] [place] [address] Dr. Jackeline Thakkar Glucose [Mass/Vol] 104 mg/dL Normal 74-106 [facility] Comment on above: Performed By: #### D ATVITD, DATBMP #### [facility] [address] [place] [address] Dr. Jackeline Thakkar HDL NORMAL > or = 60 mg/dl - LO W CARDIOVASCULAR RISK <40 mg/dl - HIGH CARDIOVASCULAR RISK Normal [facility] Comment on above: Performed By: #### D SUMMER DATBMP #### [facility] [address] [place] [address] Dr. Jackeline Thakkar LDL CALC NORMAL SEE BELOW Normal [facility] Comment on above: Result Comment: <100 mg/dl OPTIMAL 100 - 129 mg/dl NEAR OR ABOVE OPTIMAL 130 - 159 mg/dl BORDERLINE HIGH 160 - 189 mg/dl HIGH >190 mg/dl VERY HIGH Performed By: #### D SUMMER DATBMP #### [facility] [address] [place] [address] Dr. Jackeline Thakkar Potassium [Moles/Vol] 4.3 mmol/L Normal 3.5-5.1 [facility] Comment on above: Performed By: #### D SUMMER DATBMP #### [facility] [address] [place] [address] Dr. Jackeline Thakkar Sodium [Moles/Vol] 136 mmol/L Normal 136-145 [facility] Comment on above: Performed By: #### D SUMMER DATBMP #### [facility] [address] [place] [address] Dr. Jackeline Thakkar Triglyceride [Mass/Vol] 137 mg/dL Normal <=150 [facility] Comment on above: Performed By: #### D SUMMER DATBMP #### [facility] [address] [place] [address] Dr. Jackeline Thakkar Urea nitrogen [Mass/Vol] 30.0 mg/dL Critically high 7.0-18.0 [facility] Comment on above: Performed By: #### D SUMMER DATBMP #### [facility] [address] [place] [address] Dr. Jackeline Thakkar Urea nitrogen/Creatinine [Mass ratio] 40.0 mg/mg Normal [facility] Comment on above: Performed By: #### D SUMMER DATBMP #### [facility] [address] [address] [address] Jackeline Thakkar VLDL CALC 27.4 mg/dL Normal [facility] Comment on above: Performed By: #### D SUMMER DATBMP #### [facility] [address] [address] [address] Jackeline Thakkar XR hip RT min 2V(w/wo pelvis )*on 10-29-2022 XR hip RT min 2V(w/wo pelvis)* [facility] Other XR hip RT min 2V(w/wo pelvis)* [facility] Other XR hip RT min 2V(w/wo pelvis)* [address] [place] [address] [facility] Other XR hip RT min 2V(w/wo pelvis)* [place] [address] [employer] Other XR hip RT min 2V(w/wo pelvis)* XRay Report [employer] Other XR hip RT min 2V(w/wo pelvis)* Signed [facility] Other XR hip RT min 2V(w/wo pelvis)* Patient: Tiana Louis MR#: [id number] [facility] Other XR hip RT min 2V(w/wo pelvis)* : 1945 Acct:[id number] [facility] Other XR hip RT min 2V(w/wo pelvis)* Age/Sex: 77 / F ADM Date: 10/29/22 [facility] Other XR hip RT min 2V(w/wo pelvis)* Loc: [facility] Room: Type: [facility] Other XR hip RT min 2V(w/wo pelvis)* Attending Dr: Barry Valenzuela MD [facility] Other XR hip RT min 2V(w/wo pelvis)* Copies to: Barry Valenzuela MD [facility] Other XR hip RT min 2V(w/wo pelvis)* Ordering Provider: Barry Valenzuela MD [facility] Other XR hip RT min 2V(w/wo pelvis)* Date of Service: 10/29/22 [facility] Other XR hip RT min 2V(w/wo pelvis)* XR/XR hip RT min 2V(w/wo pelvis)*: Bilateral sacroiliitis [facility] Other XR hip RT min 2V(w/wo pelvis)* RIGHT HIP - 2 views: [facility] Other XR hip RT min 2V(w/wo pelvis)* CLINICAL HISTORY: Low back pain radiating into right hip and groin. 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 Please note that the femoral hardware is incompletely visualized on today's study. [facility] Other XR hip RT min 2V(w/wo pelvis)* Additional hardware is seen at the lumbosacral junction without evidence of hardware complication. [facility] Other XR hip RT min 2V(w/wo pelvis)* Degenerative changes are noted involving the SI joints. Left hip appears unremarkable. No acute [facility] Other XR hip RT min 2V(w/wo pelvis)* bony process. [facility] Other XR hip RT min 2V(w/wo pelvis)* XR/XR hip RT min 2V(w/wo pelvis)* [facility] Other XR hip RT min 2V(w/wo pelvis)* IMPRESSION: [facility] Other XR hip RT min 2V(w/wo pelvis)* NO ACUTE BONY PROCESS OR EVIDENCE OF HARDWARE COMPLICATION.. [facility] Other XR hip RT min 2V(w/wo pelvis)* Impression dictated by: Mir Delong Jr. DRobertoORoberto10/29/2022 3:09 PM [facility] Other XR hip RT min 2V(w/wo pelvis)* Dictation Location: [facility]14 [facility] Other XR hip RT min 2V(w/wo pelvis)* Transcribed By: STEF 10/29/22 [facility] Other XR hip RT min 2V(w/wo pelvis)* Dictated By: Mir Delong Jr, DO 10/29/22 [facility] Other XR hip RT min 2V(w/wo pelvis)* Signed By: [facility] Other XR hip RT min 2V(w/wo pelvis)* 10/29/22 [facility] Other Creatinine (Bld) [Mass/Vol]O rdered By: Benigno Kennedy on 08-27-2022 Creatinine [Mass/Vol] 0.7 mg/dL 0.6-1.3 [facility] Comment on above: ER/ESD physician is notified/shown all ISTAT results.Critical values may be confirmed by laboratory testing ifdeemed necessary by ER attending doctor. No Panel InformationOrdered By: Benigno Kennedy on 08-27-2022 POC Estimated GFR > 60 [facility] Comment on above: GFR estimated refere nce range: According to KDOQI guidelines, <60 ml/min/1.73m2 is sufficient to diagnose a patient with chronic kidney disease. POC Estimated GFR Non- Amer > 60 [facility] TSHon 06-22-2022 TSH 2.766 uIU/mL Normal 0.358-3.740 [facility] Comment on above: Performed By: #### T SH #### [facility] [address] [address] [address] Jackeline Thakkar VIT D 25-OH [facility]on 2021 Vitamin D, 25-Hydroxy 50.3 ng/mL Normal 30.0-100.0 [facility] Comment on above: Result Comment: Shakira min D deficiency has been defined by the [place] of Medicine and an Endocrine Society practice guideline as a level of serum 25-OH vitamin D less than 20 ng/mL (1,2). The Endocrine Society went on to further define vitamin D insufficiency as a level between 21 and 29 ng/mL (2). 1. IOM ([place] of Medicine). 2010. Dietary reference intakes for calcium and D. [place]: The National Academies Press. 2. Lolly MF, [place], Kitty RAMACHANDRAN, et al. Evaluation, treatment, and prevention of vitamin D deficiency: an Endocrine Society clinical practice guideline. JCEM. 2010; 96(7):1911-30. Performed By: #### V ITADLC #### [facility] [address] [place] [address] Dr. Jackeline Thakkar PROF CHEM 8 (BAS METB)on Anion gap [Moles/Vol] 12.3 mmol/L Normal [facility] Comment on above: Performed By: #### B MP #### [facility] [address] [place] [address] Dr. Jackeline Thakkar Calcium [Mass/Vol] 9.0 mg/dL Normal 8.5-10.1 [facility] Comment on above: Performed By: #### B MP #### [facility] [address] [address] [address] Jackeline Thakkar Chloride [Moles/Vol] 106 mmol/L Normal 98-107 [facility] Comment on above: Performed By: #### B MP #### [facility] [address] [address] [address] Jackeline Thakkar CO2 [Moles/Vol] 26.5 mmol/L Normal 21.0-32.0 [facility] Comment on above: Performed By: #### B MP #### [facility] [address] [address] [address] Jackeline Thakkar Creatinine [Mass/Vol] 0.83 mg/dL Normal 0.55-1.02 [facility] Comment on above: Performed By: #### B MP #### [facility] [address] [address] [address] Jackeline Thakkar EGFR-AF CHINESE >60 Normal >=60 [facility] Comment on above: Performed By: #### B MP #### [facility] [address] [address] [address] Jackeline Thakkar EGFR-NON AF CHINESE >60 Normal >=60 [facility] Comment on above: Performed By: #### B MP #### [facility] [address] [address] [address] Jackeline Thakkar Glucose [Mass/Vol] 92 mg/dL Normal 74-106 [facility] Comment on above: Performed By: #### B MP #### [facility] [address] [address] [address] Jackeline Thakkar Potassium [Moles/Vol] 3.8 mmol/L Normal 3.5-5.1 [facility] Comment on above: Performed By: #### B MP #### [facility] [address] [address] [address] Jackeline Thakkar Sodium [Moles/Vol] 141 mmol/L Normal 136-145 [facility] Comment on above: Performed By: #### B MP #### [facility] [address] [address] [address] Jackeline Thakkar Urea nitrogen [Mass/Vol] 13.0 mg/dL Normal 7.0-18.0 [facility] Comment on above: Performed By: #### B MP #### [facility] [address] [address] [address] Jackeline Thakkar Urea nitrogen/Creatinine [Mass ratio] 15.7 mg/mg Normal [facility] Comment on above: Performed By: #### B MP #### [facility] [address] [address] [address] Jackeline Augustin 04-11-2018 CNOV Office Visit (PULMAV) TIANA BOYLE ([id number]) 1945 [place] [facility] Provider Department04/11/18 9:30 AM RENATA YADAV PULMAV During your visit today, we recorded the [...] course of antibiotics. She wasalso seen by Principal Cyber Engineer Dr. CARRASCO, I have reviewed his notes( [...] breathing, no associated chest pain orangina likes symptomsShe was diagnosed with BRET earlier this year and started on C Pap she reportscompliance to itShe is retired, lives with her in [place]. sHE used to work in [employer], [employer]. 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 care.Referring Provider: CHUCHO SARAVIA [[id number]]Allergies As of Date: 04/11/2018(No Known Allergies)Date Reviewed: 04/11/2018Reviewed by: Denice (Zoila) Zoila Rodriguez - Fully AssessedReason for Visit: New Patient [172] Cough [28] Shortness of Breath [227]Primary Visit Diagnosis:Chronic cough [R05] Other Visit Diagnoses:Chronic obstructive pulmonary disease, unspecified COPD type (HCC) [J44.9] Former smoker [Z87.891]Order(s):PULMI OTTONIEL FLEXHALER 180 mcg/actuation aepbInhale 1 Puff as instructed twice daily.Disp: 1 InhalerRfl: 3 SPIROMETRY WITH DILATOR IF OBSTRUCTED [[id number]] Order #: [id number] FUTURE LUNG DIFFUSION CAPACITY (DLCO) [[id number]] Order #: [id number] FUTURE roflumilast (DALIRESP) 250 mcg tabTake 250 [...] on file.Follow-up and Disposition History RecordedEncounter Number: [id number] Status:Closed by RENATA YADAV MD on 04/11/18 [facility]11-[facility] TIA[facility] BOYLE ([id number]) 1945 FDate Time Provider Department04/11/18 RENATA YADAV PULRONNY During your visit today, we recorded the following information about you:Kiesha Hairston, RN, RN 04/11/2018 3:38 PM SignedPt just seen in the office todayCalling to inform the prescriptions for Pulmicort and Roflumilast never made itto her PharmacyAsking if these can be RESENT pleaseVerified correct pharmacy is [facility] [place] on [address]If needed pt's call back # [phone] Andrews Lenin 04/11/2018 3:56 PM SignedJust completed PA for Daliresp. Waiting on response. Please advise aboutPulmicort. According to med list it was only a med update.Kay Pérez LeninKay Beto Phelps 04/11/2018 4:28 PM SignedPA was approved. Called and informed pt.Kay Dasilva RN 04/12/2018 10:59 AM SignedPatient calling back- asking about her pulmicort prescriptionStates directions were changed but she is still using it?Correct pharmacy Lisandra Yadav MD 04/12/2018 11:47 AM SignedShe is taking 1 puff 2 times/.day.New prescription Dorene Diez Ma 04/12/2018 12:01 PM SignedCalled and informed pt of below message.Kay Smart As of Date: 04/11/2018(No Known Allergies)Date [...] Status:Closed by RENATA YADAV MD on 04/12/18 [facility] PROGRESSon 04-11-2018 Protein HNO ID: [id number]: Renata SuriService: (none)Author Type: PhysicianType: Progress NotesFiled: [...] course ofantibiotics. She was also seen by Principal Cyber Engineer Dr. 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 sHE used to work in [employer], taking/[employer]. 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 Normal [facility] SR-CT CHEST W CON IMPORTon 0 12-29-2017 SR-CT CHEST W CON IMPORT Images were obtained outside of [facility] [id number] Normal [facility] OT-XR CHEST 2 V IMPORTon OT-XR CHEST 2 V IMPORT Images were obtai donald outside of [facility] [id number] Normal [facility] OT-XR CHEST 2 V IMPORTon OT-XR CHEST 2 V IMPORT Images were obtai donald outside of [facility] [id number] Normal [facility] OT-XR CHEST 2 V IMPORTon OT-XR CHEST 2 V IMPORT Images were obtai donald outside of [facility] [id number] Normal [facility] Vital Signs Date Time Vital Sign Value Performing Clinician Facility 03-31-2024 09:32-0400 Body height 165.1 cm [facility] 03-31-2024 09:32-0400 Body mass index (BMI) [Ratio] 30.9 kg/m2 [facility] 03-31-2024 09:32-0400 Body weight 84.42 kg [facility] 03-31-2024 09:32-0400 Diastolic blood pressure 73 mm[Hg] [facility] 03-31-2024 09:32-0400 Heart rate 52 /min [facility] 03-31-2024 09:32-0400 Respiratory rate 16 /min [facility] 03-31-2024 09:32-0400 Systolic blood pressure 147 mm[Hg] [facility] 01-14-2024 09:45-0400 Body height 165.1 cm DO Chucho Ball Work Phone: [facility] 01-14-2024 09:45-0400 Body mass index (BMI) [Ratio] 30.4 kg/m2 DO Chucho Ball Work Phone: [facility] 01-14-2024 09:45-0400 Body weight 82.8 kg DO Chucho Ball Work Phone: [facility] 01-14-2024 09:45-0400 Diastolic blood pressure 88 mm[Hg] DO Chucho Ball Work Phone: [facility] 01-14-2024 09:45-0400 Heart rate 67 /min DO Chucho Ball Work Phone: [facility] 01-14-2024 09:45-0400 Respiratory rate 20 /min DO Chucho Ball Work Phone: [facility] 01-14-2024 09:45-0400 Systolic blood pressure 157 mm[Hg] DO Chucho Ball Work Phone: [facility] 12-21-2023 10:46-0400 Body height 165.1 cm DO Chucho Ball Work Phone: [facility] 12-21-2023 10:46-0400 Body mass index (BMI) [Ratio] 30.4 kg/m2 DO Chucho Ball Work Phone: [facility] 12-21-2023 10:46-0400 Body weight 83 kg DO Chucho Ball Work Phone: [facility] 12-21-2023 10:46-0400 Diastolic blood pressure 83 mm[Hg] DO Chucho Ball Work Phone: [facility] 12-21-2023 10:46-0400 Heart rate 69 /min DO Chucho Ball Work Phone: [facility] 12-21-2023 10:46-0400 Respiratory rate 16 /min DO Chucho Ball Work Phone: [facility] 12-21-2023 10:46-0400 Systolic blood pressure 158 mm[Hg] DO Chucho Ball Work Phone: [facility] 11-03-2023 08:00-0500 Body height 165.1 cm Coy Cassidy II Other [facility] [employer] Other 11-03-2023 08:00-0500 Body mass index (BMI) [Ratio] 30.45 kg/m2 Coy Cassidy II Other [facility] [employer] Other 11-03-2023 08:00-0500 Body weight 83.01 kg Coy Cassidy II Other [facility] [employer] Other 10-04-2023 13:30-0500 Body height 165.1 cm DO Chucho Ball Work Phone: [facility] 10-04-2023 13:30-0500 Body weight 83 kg DO Chucho Ball Work Phone: [facility] 10-04-2023 13:30-0500 Diastolic blood pressure 74 mm[Hg] DO Chucho Ball Work Phone: [facility] 10-04-2023 13:30-0500 Systolic blood pressure 130 mm[Hg] DO Chucho Ball Work Phone: [facility] 02-24-2023 11:50-0400 Diastolic blood pressure 81 mm[Hg] DO Chucho Ball Work Phone: [facility] 02-24-2023 11:50-0400 Heart rate 62 /min DO Chucho Ball Work Phone: [facility] 02-24-2023 11:50-0400 Respiratory rate 16 /min DO Chucho Ball Work Phone: [facility] 02-24-2023 11:50-0400 SaO2% (BldA) [Mass fraction] 95 % DO Chucho Ball Work Phone: [facility] 02-24-2023 11:50-0400 Systolic blood pressure 154 mm[Hg] DO Chucho Ball Work Phone: [facility] 02-24-2023 11:35-0400 Inhaled oxygen flow rate 1 L/min DO Chucho Ball Work Phone: [facility] 02-24-2023 10:54-0400 Body temperature 97 [degF] DO Chucho Ball Work Phone: [facility] 02-24-2023 08:22-0400 Body height 160.02 cm DO Chucho Ball Work Phone: [facility] 02-24-2023 08:22-0400 Body mass index (BMI) [Ratio] 32.9 kg/m2 DO Chucho Ball Work Phone: [facility] 02-24-2023 08:22-0400 Body weight 84.4 kg DO Chucho Ball Work Phone: [facility] 02-09-2023 10:00-0400 Body height 165.1 cm Barry Olexa Other [facility] [employer] Other 01-25-2023 14:45-0400 Body height 165.1 cm Barry Olexa Other [employer] Other 01-25-2023 14:45-0400 Body mass index (BMI) [Ratio] 30.78 kg/m2 Barry Olexa Other [facility] Other 01-25-2023 14:45-0400 Body weight 83.92 kg Barry Olexa Other [facility] Other 12-14-2022 11:00-0400 Body height 165.1 cm Chucho Ball Other [facility] [employer] Other 12-14-2022 11:00-0400 Body mass index (BMI) [Ratio] 30.82 kg/m2 Chucho Ball Other [facility] Other 12-14-2022 11:00-0400 Body weight 84.01 kg Chucho Ball Other [facility] Other 12-14-2022 11:00-0400 Diastolic blood pressure 84 mm[Hg] Chucho Ball Other [facility] Other 12-14-2022 11:00-0400 Respiratory rate 20 /min Chucho Ball Other [facility] Other 12-14-2022 11:00-0400 Systolic blood pressure 122 mm[Hg] Chucho Ball Other [facility] Other 10-29-2022 11:30-0500 Body height 165.1 cm Barry Valenzuela Other [facility] Other 10-29-2022 11:30-0500 Body mass index (BMI) [Ratio] 30.78 kg/m2 Barry Valenzuela Other [facility] Other 10-29-2022 11:30-0500 Body weight 83.92 kg Barry Valenzuela Other [facility] Other 10-23-2022 10:40-0500 Body height 165.1 cm Benigno Kennedy Other [facility] Other 10-23-2022 10:40-0500 Body mass index (BMI) [Ratio] 30.78 kg/m2 Benigno Kennedy Other [facility] Other 10-23-2022 10:40-0500 Body weight 83.92 kg Benigno Kennedy Other [facility] Other 08-27-2022 07:00-0500 Body height 162.56 cm DO Chucho Ball Work Phone: [facility] 08-27-2022 07:00-0500 Body weight 81.64 kg DO Chucho Ball Work Phone: [facility] 08-18-2022 11:20-0500 Body height 165.1 cm Benigno Kennedy Other [facility] Other 03-11-2022 12:00-0400 Body height 165.1 cm Barry Reeser Other [facility] Other 03-11-2022 12:00-0400 Body mass index (BMI) [Ratio] 30.28 kg/m2 Barry Felter Other [facility] Other 03-11-2022 12:00-0400 Body weight 82.56 kg Barry Valenzuela Other [facility] Other 02-17-2022 12:20-0400 Body height 165.1 cm Benigno Kennedy Other [facility] Other 02-17-2022 12:20-0400 Body mass index (BMI) [Ratio] 30.28 kg/m2 Benigno Kennedy Other [facility] Other 02-17-2022 12:20-0400 Body weight 82.56 kg Benigno Kennedy Other [facility] Other 01-05-2022 10:45-0400 Body height 165.1 cm Barry Valenzuela Other [facility] Other 01-05-2022 10:45-0400 Body mass index (BMI) [Ratio] 31.28 kg/m2 Barry Felter Other [facility] Other 01-05-2022 10:45-0400 Body weight 85.28 kg Barry Felter Other [facility] Other 11-07-2021 09:20-0500 Body height 165.1 cm Benigno Kennedy Other [facility] Other 11-07-2021 09:20-0500 Body mass index (BMI) [Ratio] 31.45 kg/m2 Benigno Kennedy Other [facility] Other 11-07-2021 09:20-0500 Body weight 85.73 kg Benigno Kennedy Other [facility] Other 11-03-2021 11:15-0500 Body height 165.1 cm Barry Felter Other [facility] Other 11-03-2021 11:15-0500 Body mass index (BMI) [Ratio] 31.45 kg/m2 Barry Felter Other [facility] Other 11-03-2021 11:15-0500 Body weight 85.73 kg Barry Felter Other [facility] Other 09-18-2021 16:20-0500 Body height 165.1 cm Benigno Kennedy Other [facility] Other 09-18-2021 16:20-0500 Body mass index (BMI) [Ratio] 31.61 kg/m2 Benigno Kennedy Other [facility] Other 09-18-2021 16:20-0500 Body weight 86.18 kg Benigno Kennedy Other [facility] Other 09-18-2021 16:20-0500 Diastolic blood pressure 75 mm[Hg] Benigno Kennedy Other [facility] Other 09-18-2021 16:20-0500 Systolic blood pressure 129 mm[Hg] Benigno Kennedy Other [facility] Other 09-11-2021 11:45-0500 Body height 165.1 cm Barry Felter Other [facility] Other 09-11-2021 11:45-0500 Body mass index (BMI) [Ratio] 31.61 kg/m2 Barry Felter Other [facility] Other 09-11-2021 11:45-0500 Body weight 86.18 kg Barry Felter Other [facility] Other 09-02-2021 15:00-0500 Body height 165.1 cm Barry Felter Other [facility] Other 09-02-2021 15:00-0500 Body mass index (BMI) [Ratio] 31.61 kg/m2 Barry Felter Other [facility] Other 09-02-2021 15:00-0500 Body weight 86.18 kg Barry Felter Other [facility] Other 08-14-2021 17:30-0500 Body height 165.1 cm Benigno Kennedy Other [facility] Other 08-14-2021 17:30-0500 Body mass index (BMI) [Ratio] 29.95 kg/m2 Benigno Kennedy Other [facility] Other 08-14-2021 17:30-0500 Body weight 81.65 kg Benigno Kennedy Other [facility] Other Encounters Encounter Date Encounter Type Care Provider Facility Start: 04-12-2024 End: 04-12-2024 ambulatory DO Chucho Saravia Work Phone: [facility] Work Phone: Start: 04-12-2024 End: 04-12-2024 Patient encounter procedure [facility] Work Phone: Start: 04-10-2024 End: 04-10-2024 ambulatory [facility] Work Phone: Start: 04-10-2024 End: 04-10-2024 Patient encounter procedure [facility] Work Phone: Start: 03-31-2024 End: 03-31-2024 ambulatory [facility] Work Phone: Start: 03-31-2024 End: 03-31-2024 Patient encounter procedure [facility] Work Phone: Start: 03-16-2024 End: 03-16-2024 ambulatory AMISHA MUNOZ Not Available Start: 03-13-2024 End: 03-13-2024 ambulatory [facility] Work Phone: Start: 03-13-2024 End: 03-13-2024 Patient encounter procedure [facility] Work Phone: Start: 02-28-2024 End: 02-28-2024 ambulatory [facility] Work Phone: Start: 02-28-2024 End: 02-28-2024 Patient encounter procedure [facility] Work Phone: Start: 02-10-2024 End: 02-10-2024 Patient encounter procedure [facility] Work Phone: Start: 01-31-2024 Non-patient / Non-visit [facility] Work Phone: Start: 01-14-2024 End: 01-14-2024 ambulatory DO Chucho Manjit Work Phone: [facility] Work Phone: Start: 01-14-2024 End: 01-14-2024 Patient encounter procedure DO Chucho Ball Work Phone: [facility] Work Phone: Start: 01-12-2024 End: 01-12-2024 ambulatory DO Cuhcho Manjit Work Phone: [facility] Work Phone: Start: 01-12-2024 End: 01-12-2024 Patient encounter procedure DO Chucho Saravia Work Phone: [facility] Work Phone: Start: 01-10-2024 End: 01-10-2024 ambulatory ESTHER PALMER Not Available Start: 01-05-2024 End: 01-05-2024 ambulatory DO Chucho Saravia Work Phone: [facility] Work Phone: Start: 01-05-2024 End: 01-05-2024 Patient encounter procedure DO Chucho Saravia Work Phone: [facility] Work Phone: Start: 01-05-2024 Non-patient / Non-visit DO Abhishek Saravia Work Phone: [facility] Work Phone: Start: 01-04-2024 End: 01-04-2024 ambulatory AMISHA MUNOZ Not Available Start: 12-21-2023 End: 12-21-2023 ambulatory DO Chucho Saravia Work Phone: [facility] Work Phone: Start: 12-21-2023 End: 12-21-2023 Patient encounter procedure DO Chucho Saravia Work Phone: [facility] Work Phone: Start: 12-13-2023 End: 12-13-2023 ambulatory DO Chucho Saravia Work Phone: [facility] Work Phone: Start: 12-13-2023 End: 12-13-2023 Patient encounter procedure DO Chucho Saravia Work Phone: [facility] Work Phone: Start: 12-09-2023 End: 12-09-2023 ambulatory DO Chucho Saravia Work Phone: [facility] Work Phone: Start: 12-09-2023 End: 12-09-2023 Patient encounter procedure DO Chucho Saravia Work Phone: [facility] Work Phone: Start: 12-01-2023 End: 12-01-2023 Patient encounter procedure DO Chucho Saravia Work Phone: [facility] Work Phone: Start: 12-01-2023 Non-patient / Non-visit DO Abhishek Saravia Work Phone: [facility] Work Phone: Start: 11-25-2023 End: 11-25-2023 Patient encounter procedure DO Chucho Saravia Work Phone: [facility] Work Phone: Start: 11-11-2023 Non-patient / Non-visit DO Abhishek Saravia Work Phone: [facility] [employer] Work Phone: Start: 11-09-2023 End: 11-09-2023 ambulatory Chucho Saravia Other [facility] [employer] Other Start: 11-09-2023 Telephone encounter Chucho Saravia [facility] Start: 11-03-2023 Office outpatient vi sit 25 minutes Coy Cassidy II [facility] Start: 11-03-2023 End: 11-03-2023 Patient encounter procedure DO Chucho Ball Work Phone: [facility] Start: 11-03-2023 End: 11-03-2023 ambulatory DO Chucho Ball Work Phone: [facility] Work Phone: Start: 10-11-2023 End: 10-11-2023 ambulatory Chucho Ball Other [facility] [employer] Other Start: 10-11-2023 Telephone encounter Chucho SALGADO [facility] Start: 10-04-2023 End: 10-04-2023 Patient encounter procedure DO Chucho Ball Work Phone: [facility] Work Phone: Start: 09-24-2023 End: 09-24-2023 ambulatory AMISHA Dee ALEXANDER Not Available Start: 07-13-2023 Office outpatient vi sit 15 minutes Barry Patel [facility] Start: 07-13-2023 End: 07-13-2023 Patient encounter procedure DO Chucho Ball Work Phone: [facility] Start: 07-13-2023 End: 07-13-2023 ambulatory DO Chucho Ball Work Phone: [facility] Work Phone: Start: 07-09-2023 End: 07-09-2023 ambulatory Chucho Ball Other [employer] Other Start: 07-09-2023 Telephone encounter Chucho Saravia FP [facility] Start: 07-08-2023 End: 07-08-2023 Patient encounter procedure DO Chucho Ball Work Phone: [facility] Work Phone: Start: 07-08-2023 End: 07-08-2023 ambulatory DO Chucho Ball Work Phone: [facility] Work Phone: Start: 07-06-2023 End: 07-06-2023 ambulatory Barry Valenzuela Other [facility] Other Start: 07-06-2023 Office outpatient vi sit 25 minutes Barry Valenzuela [facility] Start: 07-06-2023 Telephone encounter Barry Valenzuela [facility] Start: 06-25-2023 End: 06-25-2023 ambulatory Barry Patel Facility:[facility] Start: 06-25-2023 Registered Recurring DO Benjam in Ball Work Phone: [facility] Start: 06-08-2023 Office outpatient vi sit 15 minutes Barry Patel [facility] Start: 06-08-2023 End: 06-08-2023 Patient encounter procedure DO Chucho Ball Work Phone: [facility] Start: 06-08-2023 End: 06-08-2023 ambulatory DO Chucho Ball Work Phone: [facility] Work Phone: Start: 06-07-2023 Registered Recurring DO Benjam in Ball Work Phone: [facility] Start: 05-18-2023 End: 05-18-2023 ambulatory Chucho Ball Other [employer] Other Start: 05-18-2023 Telephone encounter Chucho Saravia FP [facility] Start: 05-14-2023 End: 05-14-2023 ambulatory Chucho Ball Other [employer] Other Start: 05-14-2023 Telephone encounter Chucho Saravia FP [facility] Start: 04-12-2023 Postop follow up vis it related to original px Barry Vegaxa [facility] Start: 04-12-2023 End: 04-12-2023 ambulatory DO Chucho Ball Work Phone: [facility] Work Phone: Start: 04-12-2023 End: 04-12-2023 Patient encounter procedure DO Chucho Saravia Work Phone: [facility] Start: 03-08-2023 End: 03-08-2023 Patient encounter procedure DO Chucho Saravia Work Phone: [facility] Start: 03-02-2023 End: 03-02-2023 ambulatory Chucho Saravia Other [employer] Other Start: 03-02-2023 Telephone encounter Chucho Saravia FP [facility] Start: 02-26-2023 End: 02-26-2023 ambulatory Chucho Saravia Other [facility] Other Start: 02-26-2023 Office outpatient vi sit [address] [facility] Start: 02-26-2023 Telephone encounter Chucho Saravia FP [facility] Start: 02-25-2023 End: 02-25-2023 ambulatory Barry Olexa Other [facility] Other Start: 02-25-2023 Telephone encounter Barry Patel [facility] Start: 02-24-2023 End: 02-24-2023 Admission to same day surgery center DO Chucho Saravia Work Phone: [facility] [place] Start: 02-24-2023 End: 02-24-2023 ambulatory DO Chucho Saravia Work Phone: [facility] Work Phone: Start: 02-23-2023 End: 02-23-2023 ambulatory Barry Olexa Other [employer] Other Start: 02-23-2023 Telephone encounter Barry Olexa [facility] Start: 02-12-2023 End: 02-12-2023 Patient encounter procedure DO Chucho Saravia Work Phone: [facility] Work Phone: Start: 02-09-2023 End: 02-09-2023 ambulatory Barry Vegaxa Other [employer] Other Start: 02-09-2023 Encounter for other preprocedural examination Barry Vegaxa [facility] Start: 02-09-2023 Office outpatient vi sit 25 minutes Barry Olexa [facility] Start: 02-05-2023 End: 02-05-2023 ambulatory DO Chucho Ball Work Phone: [facility] Work Phone: Start: 02-05-2023 End: 02-05-2023 Patient encounter procedure DO Chucho Ball Work Phone: [facility] [address] Work Phone: Start: 02-01-2023 End: 02-01-2023 ambulatory Barry Olexa Other [employer] Other Start: 02-01-2023 Telephone encounter Barry Vegaxa [facility] Start: 01-25-2023 Office outpatient vi sit 25 minutes Barry Olexa [facility] Start: 01-25-2023 End: 01-25-2023 ambulatory DO Chucho Ball Work Phone: [facility] Work Phone: Start: 01-25-2023 End: 01-25-2023 Patient encounter procedure DO Chucho Ball Work Phone: [facility] Start: 01-18-2023 End: 01-18-2023 ambulatory Chucho Ball Other [employer] Other Start: 01-18-2023 Telephone encounter Chucho Ball FP [facility] Start: 12-24-2022 End: 12-24-2022 ambulatory Coy Cassidy II Other [employer] Other Start: 12-24-2022 Telephone encounter Coy Cassidy II [facility] Start: 12-14-2022 End: 12-14-2022 ambulatory Chucho Saravia Other [employer] Other Start: 12-14-2022 Office outpatient vi sit [address] [facility] Start: 12-07-2022 End: 12-07-[address] CHUCHO SARAVIA Facility: Start: 12-03-2022 End: 12-03-2022 ambulatory Coy Cassidy II Other [facility] Other Start: 12-03-2022 Telephone encounter Coy Cassidy II [facility] [employer] Start: 11-30-2022 End: 11-30-2022 ambulatory Chucho Saravia Other [employer] Other Start: 11-30-2022 Telephone encounter Chucho Saravia [facility] Start: 11-26-2022 End: 11-26-2022 Patient encounter procedure DO Chucho Saravia Work Phone: [facility] Start: 11-20-2022 End: 11-20-2022 ambulatory Barry Valenzuela Other [facility] Other Start: 11-20-2022 Telephone encounter Barry SALGADO [facility] Start: 11-19-2022 End: 11-19-2022 ambulatory Barry Valenzuela Other [employer] Other Start: 11-19-2022 Office outpatient vi sit 15 minutes Barry Valenzuela [facility] Start: 11-18-2022 End: 11-18-2022 ambulatory Chucho Saravia Other [employer] Other Start: 11-18-2022 Telephone encounter Chucho Saravia [facility] Start: 11-17-2022 End: 11-18-2022 ambulatory NONE LISTED REQUEST Facility: Start: 11-17-2022 Nursing evaluation o f patient and report Chucho Saravia [facility] Start: 11-09-2022 (Procedure) Short Barry Valenzuela [facility] Start: 11-09-2022 End: 11-09-2022 ambulatory Barry Negritadave Other [facility] Other Start: 10-29-2022 Office outpatient vi sit 25 minutes Barry Valenzuela [facility] Start: 10-29-2022 Telephone encounter Barry SALGADO [facility] Start: 10-29-2022 End: 10-29-2022 ambulatory DO Chucho Saravia Work Phone: [facility] Work Phone: Start: 10-29-2022 End: 10-29-2022 Patient encounter procedure DO Chucho Saravia Work Phone: [facility] Start: 10-27-2022 End: 10-27-2022 ambulatory Radha Kennedy Other [facility] Other Start: 10-27-2022 Telephone encounter Radha Kennedy [facility] Start: 10-23-2022 End: 10-23-2022 ambulatory Benigno Kennedy Other [facility] Other Start: 10-23-2022 Office outpatient vi sit 15 minutes Benigno Kennedy [facility] [place] Start: 10-22-2022 End: 10-22-2022 ambulatory Chucho Saravia Other [employer] Other Start: 10-22-2022 Telephone encounter Chucho SALGADO [facility] Start: 08-27-2022 End: 08-27-2022 ambulatory DO Chucho Saravia Work Phone: [facility] Work Phone: Start: 08-27-2022 End: 08-27-2022 Patient encounter procedure DO Chucho Saravia Work Phone: [facility] [place] Start: 08-18-2022 End: 08-18-2022 ambulatory Benigno Kennedy Other [facility] Other Start: 08-18-2022 Office outpatient vi sit 15 minutes Benigno Kennedy [facility] Start: 08-12-2022 End: 08-12-2022 ambulatory DO Chucho Ball Work Phone: [facility] Work Phone: Start: 08-12-2022 End: 08-12-2022 Patient encounter procedure DO Chucho Ball Work Phone: [facility] [place] Start: 08-04-2022 End: 08-04-2022 ambulatory Barry Valenzuela Other [facility] Other Start: 08-04-2022 Office outpatient vi sit 25 minutes Barry Valenzuela [facility] Start: 07-07-2022 End: 07-07-2022 ambulatory DO Chucho Ball Work Phone: [facility] Work Phone: Start: 07-07-2022 End: 07-07-2022 Patient encounter procedure DO Chucho Saravia Work Phone: [facility] Start: 06-22-2022 Adult health examination Jose Angel Saravia Other [facility] Other Start: 06-22-2022 End: 06-23-[address] CHUCHO SARAVIA Facility:[facility] Start: 05-26-2022 End: 05-26-[address] CHUCHO SARAVIA Facility:[facility] Start: 04-28-2022 End: 04-29-[address] CHUCHO SARAVIA Facility:[facility] Start: 04-16-2022 End: 04-17-[address] CHUCHO SARAVIA Facility:[facility] Start: 04-15-2022 End: 04-15-[address] CHUCHO SARAVIA Facility:[facility] Start: 03-11-2022 End: 03-11-2022 ambulatory Barry Valenzuela Other [facility] Other Start: 03-11-2022 Office outpatient vi sit 25 minutes Barry Valenzuela [facility] Start: 03-04-2022 (Procedure) Short Barry Valenzuela [facility] Start: 03-04-2022 End: 03-04-2022 ambulatory Barry Valenzuela Other [facility] Other Start: 02-17-2022 End: 02-17-2022 ambulatory Benigno Kennedy Other [facility] Other Start: 02-17-2022 Office outpatient vi sit 15 minutes Benigno Kennedy [facility] [place] Start: 01-19-2022 End: 01-20-[address] CHUHCO SARAVIA Facility: Start: 01-05-2022 End: 01-05-2022 ambulatory Barry Valenzuela Other [facility] Other Start: 01-05-2022 Office outpatient vi sit 25 minutes Barry Valenzuela [facility] Start: 12-03-2021 End: 12-03-2021 ambulatory Barry Valenzuela Other [facility] Other Start: 12-03-2021 Office outpatient vi sit 25 minutes Barry Valenzuela [facility] Start: 11-28-2021 End: 11-28-2021 ambulatory Barry Valenzuela Other [facility] Other Start: 11-28-2021 Telephone encounter [facility] Start: 11-07-2021 End: 11-07-2021 ambulatory Benigno Kennedy Other [facility] Other Start: 11-07-2021 Office outpatient vi sit 15 minutes Benigno Kennedy [facility] [place] Start: 11-03-2021 End: 11-03-2021 ambulatory Barry Valenzuela Other [facility] Other Start: 11-03-2021 Office outpatient vi sit 25 minutes Barry Valenzuela [facility] Start: 10-14-2021 (Procedure) Liane Valenzuela [facility] Start: 10-14-2021 End: 10-14-2021 ambulatory Barry Reeser Other [facility] Other Start: 10-06-2021 End: 10-06-2021 ambulatory Barry Reeser Other [facility] Other Start: 10-06-2021 Office outpatient vi sit 25 minutes Barry Reeser [facility] Start: 09-18-2021 End: 09-18-2021 ambulatory Benigno Kennedy Other [facility] Other Start: 09-18-2021 Office outpatient vi sit 15 minutes Benigno Kennedy [facility] Start: 09-11-2021 End: 09-11-2021 ambulatory Barry Reeser Other [facility] Other Start: 09-11-2021 Office outpatient vi sit 25 minutes Barry Reeser [facility] Start: 09-02-2021 End: 09-02-2021 ambulatory Barry Reeser Other [facility] Other Start: 09-02-2021 Office outpatient vi sit 25 minutes Barry Reeser [facility] Start: 08-26-2021 (Procedure) Liane Valenzuela [facility] Start: 08-26-2021 End: 08-26-2021 ambulatory Barry Reeser Other [facility] Other Start: 08-25-2021 End: 08-25-2021 ambulatory Benigno Kennedy Other [facility] Other Start: 08-25-2021 Telephone encounter Benigno Kennedy [facility] Start: 08-15-2021 End: 08-15-2021 ambulatory Barry Reeser Other [facility] Other Start: 08-15-2021 Telephone encounter Barry SALGADO [facility] Start: 08-14-2021 End: 08-14-2021 ambulatory Benigno Kennedy Other [facility] [employer] Other Start: 08-14-2021 Office outpatient vi sit 15 minutes Benigno Kennedy [facility] Start: 09-05-2019 Pre-procedure evalua tion check Chucho Ball Other [facility] [employer] Other Start: 06-06-2018 Patient encounter CIRA BENDER Fac ility:[id number] Start: 06-06-2018 Patient encounter Facil [id number] Start: 04-11-2018 End: 04-13-2018 Patient encounter RENAAT [facility] Start: 04-11-2018 End: 04-11-2018 Patient encounter RENATA [facility] Start: 04-11-2018 End: 04-13-2018 Patient encounter RENATA [facility] Procedures Date Procedure Procedure Detail Performing Clinician [...] 11-26-2022 X-ray of right knee DO Chucho Lvmae Work Phone: Start: 11-26-2022 Plain X-ray of right hip DO Chucho Lvmae Work Phone: Start: 10-29-2022 Plain X-ray of right hip DO Chucho Ball Work Phone: Start: 08-27-2022 MRI of lumbar spine with contrast DO Chucho Lvmae Work Phone: Start: 08-12-2022 X-ray of lumbar spin e, four views DO Chucho Lvmae Work Phone: Start: 07-07-2022 Screening mammograph y of bilateral breasts DO Chucho Lvmae Work Phone: Start: 01-25-2018 Screening for osteoporosis [...] Treatment Date Care Activity Detail Author Start: 04-10-2024 Patient referral [facility] Work Phone: Start: 02-24-2023 End: 02-24-2023 [facility] Start: 02-24-2023 Referral to occupati onal therapist [facility] Start: 02-24-2023 [facility] Start: 01-25-2023 Plain X-ray of left shoulder XR shoulder LT min 2V* [facility] Comprehensive metabo lic 2000 panel - Serum or Plasma [facility] Patient referral [facility] Work Phone: US [facility]hor[facility] XR Chest 2 Views [facility] Immunizations Immunization Date Immunization Notes Care Provider Fa cility 06-22-2023 influenza virus vaccine, unspecified formulation DO Chucho Saravia Work Phone: [facility] 06-22-2023 influenza, high dose seasonal, preservative-free Barry Valenzuela Other [facility] Other 06-16-2022 influenza virus vaccine, split virus (incl. purified surface antigen) Chucho Saravia Other [facility] [employer] Other 06-16-2022 influenza virus vaccine, unspecified formulation DO Chucho Saravia Work Phone: [facility] 12-16-2020 COVID-19 mRNA-1273 (Moderna) DO Chucho Saravia Work Phone: [facility] 11-18-2020 COVID-19 mRNA-1273 (Moderna) DO Chucho Saravia Work Phone: [facility] 06-02-2017 influenza virus vaccine, split virus (incl. purified surface antigen) Chucho Saravia Other [facility] Other 06-02-2017 influenza virus vaccine, unspecified formulation DO Chucho Saravia Work Phone: [facility] 02-10-2017 pneumococcal polysaccharide vaccine, 23 valent Chucho Manjit Other [facility] 05-01-2015 pneumococcal conjuga te vaccine, 13 valent Chucho Sarvaia Other [facility] 05-01-2015 pneumococcal Conjuga te, unspecified formulation; Translations: [Need for prophylactic vaccination against Streptococcus pneumoniae (pneumococcus)] Chucho Saravia Other [facility] [employer] Other 08-01-2014 influenza virus vaccine, split virus (incl. purified surface antigen) Chucho Saravia Other [facility] [employer] Other 08-01-2014 influenza virus vaccine, unspecified formulation DO Chucho Saravia Work Phone: [facility] 07-05-2013 tetanus and diphther ia toxoids, adsorbed, preservative free, for adult use (5 Lf of tetanus toxoid and 2 Lf of diphtheria toxoid) Chucho Saravia Other [facility] 07-05-2012 tetanus and diphther ia toxoids, adsorbed, preservative free, for adult use (5 Lf of tetanus toxoid and 2 Lf of diphtheria toxoid) Chucho Saravia Other [facility] 07-01-2011 tetanus and diphther ia toxoids, adsorbed, preservative free, for adult use (5 Lf of tetanus toxoid and 2 Lf of diphtheria toxoid) Chucho Saravia Other [facility] 08-06-2004 pneumococcal polysaccharide vaccine, 23 valent Chucho Saravia Other [facility] Payers Date Payer Category Payer Medicare [id number] Self-pay [id number] 1957 Unknown [id number] 1945 Unknown [id number] [id number] 1947 Unknown [id number] [id number] 1947 Unknown [id number] 2.16.840.1.799865.3.579.2.593 1947 Unknown [id number] 2.16.840.1.108560.3.579.2.593 1947 Unknown [id number] 2.16.840.1.155242.3.579.2.593 1947 Unknown [id number] 2..840.1.795310.3.579.2.593 1947 Unknown [id number] 2..840.1.442769.3.579.2.593 1947 Unknown [id number] 2..840.1.695008.3.579.2.1259 1947 Unknown [id number] 2.840.1.631701.3.579.2.1259 1947 Unknown [id number] 2.840.1.177717.3.579.2.1259 1947 Unknown [id number] 2.840.1.460474.3.579.2.1259 Medicare [id number] Unknown [facility] Life Insurance C o [id number] Unknown [id number] 2.840.1.836046.3.579.2.593 Unknown [id number] 2.840.1.370668.3.579.2.531 Unknown [id number] 2.16.840.1.128511.3.579.2.531 Unknown [id number] 2.16.840.1.834803.3.579.2.531 Unknown [id number] 2.16.840.1.354693.3.579.2.531 Unknown [id number] 2.16.840.1.274868.3.579.2.531 Unknown [id number] 2.16.840.1.893034.3.579.2.531 Social History Date Type Detail Facility Unknown if ever smoked [facility] Other Sex Assigned At Sex Assigned At Bir th [facility] Other Start: 03-05-2021 End: 04-10-2024 Tobacco smoking status NHIS Ex-smoker (finding) [facility] Start: 1945 Sex Assigned At Female F [facility] Medical Equipment Procedure Code Equipment Code Equipment Origin al Text Equipment Identifier Dates Fusion, spine, lumbar, XLIF CANCELLOUS 15CC CRUSHED FDA Start: 03-05-2021 Fusion, spine, lumbar, XLIF Orthopaedic bone screw, non-bioabsorbable, non-sterile [id number] FDA Start: 03-05-2021 Fusion, spine, lumbar, XLIF Orthopaedic instrument surgical connector [id number] FDA Start: 03-05-2021 Fusion, spine, lumbar, XLIF Bone-screw internal spinal fixation system, non-sterile [id number] FDA Start: 03-05-2021 Fusion, spine, lumbar, XLIF Spinal fusion graft kit [id number] FDA Start: 03-05-2021 Fusion, spine, lumbar, XLIF Polymeric spinal fusion cage, sterile ()[id number] FDA Start: 03-05-2021 Fusion, spine, lumbar, XLIF Bone-screw internal spinal fixation system, non-sterile [id number] FDA Start: 03-05-2021 Fusion, spine, lumbar, XLIF Orthopaedic bone screw, non-bioabsorbable, non-sterile [id number] FDA Start: 03-05-2021 Fusion, spine, lumbar, XLIF [...] 03-05-2021 Arthroscopy, shoulder Tendon/ligament bone anchor, non-bioabsorbable ()[id number] FDA Start: 08-01-2019 Arthroplasty, shoulder, total Total reverse shoulder prosthesis ()[id number] [id number])[id number] 69 FDA Start: 02-24-2023 Arthroplasty, shoulder, total Total reverse shoulder prosthesis [id number] [id number] FDA Start: 02-24-2023 Arthroplasty, shoulder, total Total reverse shoulder prosthesis [id number] 17)[id number])[id number] 30 FDA Start: 02-24-2023 Arthroplasty, shoulder, total Total reverse shoulder prosthesis [id number] [id number])[id number] 00 FDA Start: 02-24-2023 Arthroplasty, shoulder, total Total reverse shoulder prosthesis [id number] [id number])[id number] 66 FDA Start: 02-24-2023 Arthroplasty, shoulder, total Total reverse shoulder prosthesis [id number] 17)[id number])[id number] 85 FDA Start: 02-24-2023 Arthroplasty, shoulder, total Total reverse shoulder prosthesis [id number] [id number] 59 FDA Start: 02-24-2023 Arthroplasty, shoulder, total Total reverse shoulder prosthesis [id number] [id number] FDA Start: 02-24-2023 Arthroplasty, shoulder, total Total reverse shoulder prosthesis [id number] [id number] FDA Start: 02-24-2023 Arthroplasty, shoulder, total Total reverse shoulder prosthesis [id number] [id number] 66 FDA Start: 02-24-2023 Goals Date Patient Goal Desired Activity /State Clinical Notes 08-14-2021 to 11-09-2023 Note Date & Type Note Facility 11-09-2023 Evaluation note Encounter Date Diagnosis Assessment Notes Oct, LALITA (generalized anxiety disorder) (ICD-10 - F41.1) [facility] Other 02-07-2024 Evaluation note* Encounter Date Diagnosis [...] would like to see the someone in [place] or [place] for another set of eyes to determine if there is anything from a surgical standpoint I can help with her significant pain I am happy to make that referral as well. I again stressed that I do not feel that there is anything from a surgical standpoint that I will be able to offer her. [facility] Other 10-17-2023 Evaluation note* Encounter Date Diagnosis [...] discuss possible surgical options. We performed a /1cc marcaine / kenalog cortisone injection into the right thumb CMC joint under sterile technique. She will call if she would like the left thumb CMC injected. 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 She understands the associated risks [...] Other Above note writ ten by Henry Saletr MA, [employer]. Edited and approved by Dr. Barry Valenzuela MD. [facility] Other 09-12-2023 Evaluation note* Encounter Date Diagnosis [...] slowly progress increased activity as pain allows. [facility] Other 08-18-2023 Evaluation note* Encounter Date Diagnosis Assessment Notes Treatment Notes Treatment Clinical Notes Apr, Age-related osteoporosis without current pathological fracture (ICD-10 - M81.0) [facility] Other 06-06-2023 Evaluation note* Encounter Date Diagnosis Assessment Notes Treatment Notes Treatment Clinical Notes Feb, Acute bronchitis due to other specified organisms (ICD-10 - J20.8) [facility] Other 06-02-2023 Evaluation note* Encounter Date Diagnosis [...] Increase use of MICHAELA and add mucolytic [facility] Other 05-30-2023 Evaluation note* Encounter Date Diagnosis Assessment Notes Treatment Notes Treatment Clinical Notes January, 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) [facility] Other 05-16-2023 Evaluation note* Encounter Date Diagnosis [...] loosening, loss of motion, hematoma, wound problems, senior care pain and stiffness are well known problems [...] M87.022) January, Pre-op exam (ICD-10 - Z01.818) [facility] Other 05-08-2023 Evaluation note* Encounter Date Diagnosis Assessment Notes Treatment Notes Treatment Clinical Notes January, Internal derangement of left shoulder (ICD-10 - M24.812) [facility] Other 05-01-2023 Evaluation note* Encounter Date Diagnosis [...] derangement of left shoulder (ICD-10 - M24.812) [facility] Other 03-20-2023 Evaluation note* Encounter Date Diagnosis [...] Nov, Other chronic pain (ICD-10 - G89.29) [facility] Other 02-24-2023 Evaluation note* Encounter Date Diagnosis Assessment Notes Treatment Notes Treatment Clinical Notes Oct, Mucopurulent chronic bronchitis (ICD-10 - J41.1) [facility] Other 02-23-2023 Evaluation note* Encounter Date Diagnosis [...] educated regarding the risks and benefits of senior care opioid use. She understands the associated risks [...] note writ ten by Shahla Lopez LPN, [employer]. Edited and approved by Dr. Barry Valenzuela MD. 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 She understands the associated risks with this medication and agrees that it provides reasonable benefit in regards to her pain control and level of function. This medication was refilled today. Oct, Other Above note writ ten by Shahla Lopez LPN, [employer]. Edited and approved by Dr. Barry Valenzuela MD. [facility] Other 01-27-2023 Evaluation note* Encounter Date Diagnosis [...] with another xray. She can see my DINKEY LOCOMOTIVE OPERATOR. 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 She understands the associated risks with this medication and agrees that it provides reasonable benefit in regards to her pain control and level of function. This medication was refilled today. Jul, Other spondylosis with radiculopathy, lumbar region (ICD-10 - M47.26) Jul, Trochanteric bursitis of left hip (ICD-10 - M70.62) Jul, Other Above note writ ten by Henry Salter MA, [employer]. Edited and approved by Dr. Barry Valenzuela MD. 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 She understands the associated risks with this medication and agrees that it provides reasonable benefit in regards to her pain control and level of function. This medication was refilled today. Feb, Other spondylosis with radiculopathy, lumbar region (ICD-10 - M47.26) Feb, Trochanteric bursitis of left hip (ICD-10 - M70.62) Feb, Other Above note writ ten by Shahla Lopez LPN, [employer]. Edited and approved by Dr. Barry Valenzuela MD. 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 Edited and approved by Dr. Barry Valenzuela MD. [facility] Other 03-09-2022 Evaluation note* Encounter Date Diagnosis [...] note writ ten by Henry Salter CMA, [employer]. Edited and approved by Dr. Barry Valenzuela MD. [facility] Other 03-04-2022 Evaluation note* Encounter Date Diagnosis Assessment Notes Treatment Notes Treatment Clinical Notes Nov, Tear of gluteus medius tendon (ICD-10 - S76.019A) [facility] Other 02-11-2022 Evaluation note* Encounter Date Diagnosis [...] Oct, Left hip pain (ICD-10 - M25.552) [facility] Other 02-07-2022 Evaluation note* Encounter Date Diagnosis [...] considering a referral to an orthopedic sports photographer for her hip should this upcoming injection not provide considerable relief. Oct, Other spondylosis with radiculopathy, lumbar region (ICD-10 - M47.26) Patient notes upcoming appointment with neurosurgery. Oct, Other Above note writ ten by Shahla Lopez LPN, [employer]. Edited and approved by Dr. Barry Valenzuela MD. [facility] Other 01-10-2022 Evaluation note* Encounter Date Diagnosis [...] could consider referral to a orthopedic sports photographer for her hip. Sep, Other chronic pain (ICD-10 - G89.29) Sep, Other Above note writ ten by Henry Salter [facility], [employer]. Edited and approved by Dr. Barry Valenzuela MD. [facility] Other 12-23-2021 Evaluation note* Encounter Date Diagnosis [...] Aug, Left hip pain (ICD-10 - M25.552) [facility] Other 12-16-2021 Evaluation note* Encounter Date Diagnosis [...] could consider referral to a orthopedic sports photographer. Aug, Other chronic pain (ICD-10 - G89.29) Aug, Other Above note writ ten by eHnry Salter CMA, [employer]. Edited and approved by Dr. Barry Valenzuela MD. [facility] Other 12-07-2021 Evaluation note* Encounter Date Diagnosis [...] Other Above note writ ten by Tsering MARROQUIN, [employer]. Edited and approved by Dr. Barry Valenzuela MD. [facility] Other 11-29-2021 Evaluation note* Encounter Date Diagnosis Assessment Notes Treatment Notes Treatment Clinical Notes Jul, Stenosis, spinal, lumbar (ICD-10 - M48.06) [facility] Other 11-19-2021 Evaluation note* Encounter Date Diagnosis Assessment Notes Treatment Notes Treatment Clinical Notes Jul, Left hip pain (ICD-10 - M25.552) [facility] Other 11-18-2021 Evaluation note* Encounter Date Diagnosis [...] suspect this is the source of pathology [facility] Other evaluation noteNo InformationN[facility] [employer] Other Evaluation noteNo assessment information available [facility] Work Phone: Evaluation noteNort [employer] Other Evaluation note* Diagnosis Onset Date Resolution Status Chronic pain acute Inflammation of right sacroiliac joint acute Trochanteric bursitis acute Chronic pain acute DJD (degenerative joint disease), lumbosacral acute Inflammation of right sacroiliac joint acute [facility] Work Phone: evaluation note* Diagnosis Onset Date Resolution Status Chronic pain acute Inflammation of right sacroiliac joint acute Trochanteric bursitis acute Chronic pain acute DJD (degenerative joint disease), lumbosacral acute Inflammation of right sacroiliac joint acute Chronic obstructive pulmonar y disease with (acute) exacerbation acute Chronic obstructive pulmonar y disease with (acute) lower respiratory infection acute [facility] Work Phone: Evaluation note* Diagnosis Onset Date Resolution Status Inflammation of right sacroiliac joint acute Trochanteric bursitis acute DJD (degenerative joint disease), lumbosacral acute Inflammation of right sacroiliac joint acute Chronic bronchitis acute Hypothyroid acute Lumbar spondylosis acute BRET (obstructive sleep apnea) acute [facility] Work Phone: Evaluation note* Diagnosis Onset Date Resolution Status Inflammation of right sacroiliac joint acute Trochanteric bursitis acute DJD (degenerative joint disease), lumbosacral acute Inflammation of right sacroiliac joint acute Chronic bronchitis acute Hypothyroid acute Lumbar spondylosis acute BRET (obstructive sleep apnea) acute DJD (degenerative joint disease), lumbosacral acute Inflammation of right sacroiliac joint acute [facility] Work Phone: Evaluation note* Diagnosis Onset Date Resolution Status Inflammation [...] of chroni c obstructive airways disease noneactive [facility] Work Phone: Evaluation note* Diagnosis Onset Date [...] acute Inflammation of right sacroiliac joint acute [facility] Work Phone: Evaluation note* Diagnosis Onset Date [...] acute Inflammation of right sacroiliac joint acute [facility] Work Phone: Evaluation note* Diagnosis Onset Date [...] edema acute BRET (obstructive sleep apnea) acute [facility] Work Phone: Evaluation note* Diagnosis Onset Date Resolution Status DJD (degenerative joint disease), lumbosacral acute Inflammation of right sacroiliac joint acute Acute exacerbation of chroni c obstructive airways disease noneactive DJD (degenerative joint disease), lumbosacral acute Inflammation of right sacroiliac joint acute 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 acute DJD (degenerative joint disease), lumbosacral acute Inflammation of right sacroiliac joint acute Acute exacerbation of chroni c obstructive airways disease acute Hypothyroid acute Lower extremity edema acute Obesity acute BRET (obstructive sleep apnea) acute Retained suture acute DJD (degenerative joint disease), lumbosacral acute Inflammation of right sacroiliac joint acute [facility] Work Phone: Evaluation note* Diagnosis Onset Date Resolution Status Acute exacerbation of chroni c obstructive airways disease noneactive DJD (degenerative joint disease), lumbosacral acute Inflammation of right sacroiliac joint acute 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 acute DJD (degenerative joint disease), lumbosacral acute Inflammation of right sacroiliac joint acute Acute exacerbation of chroni c obstructive airways disease acute Hypothyroid acute Lower extremity edema acute Obesity acute BRET (obstructive sleep apnea) acute Retained suture acute Chronic pain acute DJD (degenerative joint disease), lumbosacral acute Knee pain acute Painful total knee replacement, right acute [facility] Work Phone: History general Narrative - Reported* [...] tlif [id number] 03/05/2021 Hospitalization History See above [facility] Other Hisgjva general Narrative - Reported* Type Description Date [...] shoulder, left 02/2023 Hospitalization History See above [place] [employer] Other History general [facility] - [facility] Other [facility] Discharge instructions Additional Instructions DISCHARGE [...] OTHER -Any problems call the office at [phone] or return to Emergency Room. If you [...] in one week; call the office at [phone] if your appointment has not been made already. Call [phone] for further questions.[facility] Work Phone: Summary Purpose Family History No Family History Records Found Relationship Condition Age at Onset Recorded Date/T [...] Unknown mother Multiple sclerosis Unknown Advance Directives No Advanced Directives Records Found Advance Directive Response Recorded Date/ Time Advance Directives No May 2:53pm Advance Directive Response Recorded Date/ Time Advance Directives No May 1:53pm Advance Directive Response Recorded Date/ Time Advance Directives No April 10 10:46am Reason for Referral Reason 11/26/22 RIGHT HIP REPLACEMENT, RIGHT FEMUR HARDWARE Diagnosis 1 Right hip pain (M25. 551) Referral Organization [facility] Referring Provider First Name Barry Referring Provider Last Name Nicolas Referring Provider Specialty Pain Medici ne Referred Organization [facility] Referred Provider Coy Cassidy II Referred Address [address] [place], [place],[address] Referred Provider Specialty Orthopedic S urgery Referral [...] 1 Lumbar spondylosis ( M47.816) Referral Organization [facility] [place] Referring Provider First Name Benigno Referring Provider Last Name Marcia Referring Provider Specialty Neurologica l Surgery Referred [facility] Referred Provider Albin Sweeney Referred Address [address],[place] [address] ,[place],[address] Referred Provider Specialty Pain Medicin e Referral [...] R SI & BURSA Cough, Chills-COVID Negative- [phone] Reason for Visit Chronic pain Inflammation of [...] R SI & BURSA Cough, Chills-COVID Negative- [phone] 6 month follow up Reason for Visit Inflammation of righ t sacroiliac joint Trochanteric bursitis DJD (degenerative joint disease), lumbosacral Inflammation of right sacroiliac joint Chronic bronchitis Hypothyroid Lumbar spondylosis BRET (obstructive sleep apnea) Chief Complaint M25.551 M25.[address] CASSIDY RIGHT SI & TROCH BURSA INJ/DS F/U AFTER R SI & BURSA Cough, Chills-COVID Negative- [phone] 6 month follow up RIGHT LUMBAR FACET [...] R SI & BURSA Cough, Chills-COVID Negative- [phone] 6 month follow up RIGHT LUMBAR FACET [...] R SI & BURSA Cough, Chills-COVID Negative- [phone] 6 month follow up RIGHT LUMBAR FACET [...] R SI & BURSA Cough, Chills-COVID Negative- [phone] 6 month follow up RIGHT LUMBAR FACET [...] Lower extremity edema BRET (obstructive sleep apnea) Chief Complaint F/U RIGHT LUMBAR FAC ET MBB Sinuses 1 MONTH OP SP RT THUMB PAIN 1 MONTH FOLLOW UP leg swelling, lump on right leg 1 month follow up Reason for Visit DJD (degenerative barrington int disease), lumbosacral Inflammation of right sacroiliac joint Acute exacerbation of chronic obstructive airways disease DJD (degenerative joint disease), lumbosacral Inflammation of right sacroiliac joint 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 DJD (degenerative joint disease), lumbosacral Inflammation of right sacroiliac joint Acute exacerbation of chronic obstructive airways disease Hypothyroid Lower extremity edema Obesity BRET (obstructive sleep apnea) Retained suture DJD (degenerative joint disease), lumbosacral Inflammation of right sacroiliac joint Chief Complaint Sinuses 1 MONTH OP SP RT THUMB PAIN 1 MONTH FOLLOW UP leg swelling, lump on right leg 1 month 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 up 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 Reason for Visit Acute exacerbation o f chronic obstructive airways disease DJD (degenerative joint disease), lumbosacral Inflammation of right sacroiliac joint 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 DJD (degenerative joint disease), lumbosacral Inflammation of right sacroiliac joint Acute exacerbation of chronic obstructive airways disease Hypothyroid Lower extremity edema Obesity BRET (obstructive sleep apnea) Retained suture Chronic pain DJD (degenerative joint disease), lumbosacral Knee pain Painful total knee replacement, right Chief Complaint Sinuses 1 MONTH OP SP RT THUMB PAIN 1 MONTH FOLLOW UP leg swelling, lump on right leg 1 month 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 up 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 z96.651 t84.84xa Reason for Visit Acute exacerbation o f chronic obstructive airways disease DJD (degenerative joint disease), lumbosacral Inflammation of right sacroiliac joint 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 DJD (degenerative joint disease), lumbosacral Inflammation of right sacroiliac joint Acute exacerbation of chronic obstructive airways disease Hypothyroid Lower extremity edema Obesity BRET (obstructive sleep apnea) Retained suture Chronic pain DJD (degenerative joint disease), lumbosacral Knee pain Painful total knee replacement, right Additional Source Comments INFORMATION SOURCE (unrecogn ized section and content) DATE CREATED AUTHOR 04/15/2018 [facility] DATE CREATED AUTHOR AUTHOR'S ORGANIZ ATION 06/22/2018 [facility] DATE CREATED AUTHOR AUTHOR'S ORGANIZ ATION 07/04/2018 [facility] DATE CREATED AUTHOR AUTHOR'S ORGANIZ ATION 12/07/2022 [facility] DATE CREATED AUTHOR AUTHOR'S ORGANIZ ATION 03/18/[address] [facility] DATE CREATED AUTHOR AUTHOR'S ORGANIZ ATION 04/16/2024 [facility] REASON FOR VISIT (unrecogniz ed section and [...] content) Team Status: Active Member Role Status Ann [...] 2024 End: March 31, 2024 Team Status: Inactive Member Role Status Dates Chucho Saravia DO Primary Care Provider Active Start: April 10, 2024 End: April 10, 2024 Barry Valenzuela MD Attending Provider Active Sta rt: April 10, 2024 End: April 10, 2024 Team Status: Active Member Role Status Dates [...] 2023 Team Status: Inactive Member Role Status Dates Chucho Saravia DO Primary Care Provider Active Start: December 01, 2023 End: December 01, 2023 Barry Valenzuela MD Attending Provider Active Sta rt: December 01, 2023 End: December 01, 2023 Team Status: Inactive Member Role Status Dates Chucho Saravia DO Primary Care Provider Active Start: December 09, 2023 End: December 09, 2023 Barry Valenzuela MD Attending Provider Active Sta rt: December 09, 2023 End: December 09, 2023 Team Status: Inactive Member Role Status Dates Chucho Saravia DO Primary Care Provide r, Attending Provider Active Start: December 13, 2023 End: December 13, 2023 Team Status: Inactive Member Role Status Ann Saravia DO Attending Provider Active Sta rt: October 04, 2023 End: October 04, 2023 Team Status: Inactive Member Role Status Dates Chucho Saravia DO Primary Care Provider Active Start: November 03, 2023 End: November 03, 2023 Coy Cassidy II, MD Attending Provider Active Start: November 03, 2023 End: November 03, 2023 Team Status: Active Member Role Status Dates Chucho Manjit , DO Primary Care Provider Active Barry Patel MD Attending Provider Active Team Status: Inactive Member Role Status Dates Chucho Manjit , DO Primary Care Provider Active Barry Patel MD Attending Provider Active Team Status: Inactive Member Role Status Dates Chucho Saravia , DO Primary Care Provider, Referring Pr ovider Active Referral Self Attending Provider Active Team Status: Inactive Member Role Status Dates Chucho Saravia , DO Primary Care Provider Active Benigno Kennedy MD Attending Provider Active Team Status: Inactive Member Role Status Dates Chucho Saravia , DO Primary Care Provider Active Barry Valenzuela MD Attending Provider Active Team Status: Inactive Member Role Status Dates Chucho Saravia , DO Primary Care Provider Active Coy Cassidy II, MD Attending Provider Active Team Status: Active Member Role Status Dates Chucho Saravia , DO Primary Care Provider Active Start: November 11, 2023 CARA Clifton Attending Provider Active Start : November 11, 2023 Team Status: Inactive Member Role Status Dates Chucho Saravia , DO Primary Care Provider Active Start: November 25, 2023 End: November 25, 2023 Barry Valenzuela MD Attending Provider Active Sta rt: November 25, 2023 End: November 25, 2023 Team Status: Inactive Member Role Status Dates Chucho Saravia , DO Primary Care Provider Active Start: April 12, 2024 End: April 12, 2024 Coy Cassidy II, MD Attending Provider Active Start: April 12, 2024 End: April 12, 2024 Goals (unrecognized section and content) Goals [...] BE BASED ON THE PRIMARY CLINICAL RECORDS. [facility]. provides no warranty or guarantee of the accuracy or completeness of information in this document.
--- NOTE | 2024-04-17 14:00 | CA_ITS ---
Patient Name: NORIS ARCE MR#: [id number] : 1945 Exam Date: 04/17/2024 Ordering Doctor: DR Chucho Saravia D.O. ECHOCARDIOGRAM REPORT PROCEDURE: CA ECHO DOPPLER COMPLETE INDICATIONS: Heart murmur COMPARISON: None. DESCRIPTION: COMPLETE ECHOCARDIOGRAM Real-time transthoracic echocardiography with 2D, M-mode, spectral and color flow Doppler performed. QUALITY: Technical quality was good. LEFT VENTRICLE: Mild dilatation. Normal left ventricular wall thickness. Global left ventricular systolic function is normal. LV EF: Estimated left ventricular ejection fraction is 65%. DIASTOLIC: Grade 2 diastolic dysfunction. ATRIAL SEPTUM: LEFT ATRIUM: Mild dilatation. RIGHT ATRIUM: Mild dilatation. RIGHT VENTRICLE: Normal chamber size. Normal right ventricular systolic function. TRICUSPID VALVE: Normal mobility and thickness. No stenosis with mild regurgitation. Mild pulmonary hypertension. RVSP 38 mmHg MITRAL VALVE: Normal mobility and thickness. No evidence of mitral valve stenosis. There is no mitral annular calcification. Trivial mitral regurgitation. AORTIC VALVE: Normal trileaflet appearance. No visible sclerosis. Normal leaflet mobility. No evidence of aortic valve stenosis. Mild aortic regurgitation. AORTIC ROOT: Normal diameter and appearance. PULMONIC VALVE: Normal thickness and mobility. No stenosis. No regurgitation. PERICARDIUM: No evidence of pericardial effusion. IVC: Collapses with inspirations. Normal size. PLEURA: CONCLUSION: 1. Normal ventricular size and systolic function. LVEF is 65%. 2. Grade 2 diastolic dysfunction. 3. Mild biatrial enlargement. 4. Mild aortic regurgitation. 5. Mildly elevated right sided pressures. Adult Echocardiography Procedure Report Left Ventricle LVEDD (3.7 - 5.6 cm): 5.48 cm LVESD (2.2 - 4.0 cm): 3.64 cm LVIVS thickness (0.6 - 1.2 cm): 0.89 cm LVPW thickness (0.5 - 1.0 cm): 0.63 cm e': 0.09 m/s E - e': 8.47 LVOT Max Gradient: 4.53 mm[Hg] LVOT Area (cm2): 1.06 m/s Peak Velocity (LVOT): 1.06 m/s Mean Velocity (LVOT): 0.69 m/s LVOT Diameter 1.99 cm Left Ventricular Ejection Fraction: 65% Left Atrium LA Volume Index (2D A2C): 46.21 ml/m2 Left Atrium Systolic Dimension: 3.22 cm Mitral Valve MV E to A Ratio: 1.07 Mitral Valve A-Wave Peak Velocity: 0.75 m/s Mitral Valve E-Wave Peak Velocity: 0.80 m/s Right Ventricle RV Internal Diastolic Dimension: 3.46 cm Aorta AO Root Diam: 3.12 cm Ascending Ao Diam: 2.84 cm Aortic Valve AoV Area (Peak [place]): 2.48 cm2, 2.48 cm2 AoV Area (VTI): 2.59 cm2, 2.59 cm2 Peak Velocity(Antegrade Flow): 1.33 m/s Peak Gradient(Antegrade Flow): 7.06 mm[Hg] Mean Velocity(Antegrade Flow): 0.84 m/s Mean Gradient(Antegrade Flow): 3.40 mm[Hg] Velocity Time Integral: 30.95 cm Tricuspid Valve Peak Velocity (Regurgitant Flow): 2.05 m/s, 2.96 m/s Pulmonic Valve Mean Gradient: 1.89 mm[Hg], 2.06 mm[Hg] Mean Velocity: 0.64 m/s, 0.67 m/s Peak Velocity: 0.94 m/s Peak Gradient: 3.26 mm[Hg], 3.74 mm[Hg] Right Atrium Right Atrium Systolic Pressure: 82.63 ml, 82.63 ml Dictated by: Lorenzo Mcleod M.D. on 04/17/2024 at 16:08 Approved by: Lorenzo Mcleod M.D. on 04/17/2024 at 16:12
== END 2024-04-17 13:32 | disposition home or self-care (01) ==
LOC: CARD 13:31
PROVIDERS: PCP Internal Medicine; Visit Provider Internal Medicine
DX: R01.1 Cardiac murmur, unspecified (principal)
CPT/HCPCS: 93306

== ENCOUNTER 2024-05-15 09:18 | Outpatient (OUT) | payer MEDICARE, OTHER, SELFPAY ==
--- OUTSIDE RECORDS SUMMARY | 2024-05-15 09:40 | XMS_ITS | CCD ---
Author Organization [facility] Care Team Providers Care Production Controller Name Role Phone LEIF, RENATA Unavailable Unavailable [...] Provider Unavailable MD Benigno Kennedy Attending Provider [phone] DO Chucho Saravia Primary Care Provider MD [...] Provider MD Coy Cassidy II Attending Provider DO Chucho Saravia Primary Care [...] adhesive tape Propensity to adverse reactions rash [facility] Other (20 sources) Adhesive Tape; Translations: [Adhesive tape] Allergy to substance 1 Rash;blisterin g [facility] (10 sources) Adhesive Tape Drug allergy Unknown [facility] Other (20 sources) zoledronic acid Drug Allergy 4 Unknown, Unknown Reaction [facility] (3 sources) Allergies Reconciled Propensity to adverse reactions Unknown [facility] Other (3 sources) patient allergy list reviewed by nurse or physicia Propensity to adverse reactions 3 Comment:Done [facility] Other (15 sources) Mannitol; Translations: [mannitol] Drug Allergy 4 Unknown Reaction [facility] (15 sources) water for injection,steri le; Translations: [water for injection,steri le] Allergy to substance 4 Unknown Reaction [facility] (1 source) zoledronic acid Drug Allergy 4 [facility] Repository Medications Current Medications Medication Drug Class(es) Dates Sig (Normalized) Sig (Original) acetaminophen 325 mg / oxyCODONE hydrochloride 5 mg oral tablet (20 sources) Opioid Agonist Start: 02-23-2023 take 1 tablet by mouth every four hours as needed for pain Percocet 5-325 MG 1 tablet as needed for pain Orally up to every 4 hrs for 5 days GABE: [id number] January, Active Start: 05-27-2021 take 1 tablet [...] 25, 2017 12:00am April 07, 2018 11:40pm [id number] 200 actuat albuterol 0.09 mg/actuat metered dose [...] 2020 9:32am cefuroxime 500 mg oral tablet (18 sources) Cephalosporin Antibacterial Start: 04-03-2024 take 500 [...] Propion-Salmeterol (20 sources) Corticosteroid, beta2-Adrenergic Agonist Start: 05-09-2024 take 1 puff(s) by inhalation twice daily Fluticasone Propion-Salmetero l Active 0 .ROUTE .COMPLEX 60 May 09, 2024 9:09pm INHALE 1 PUFF TWICE DAILY Start: 04-10-2024 End: 05-09-2024 take 1 puff(s) by inhalation twice daily Fluticasone Propion-Salmeterol Discontinued 0 .ROUTE .COMPLEX 60 April 10, 2024 2:12pm May 09, 2024 9:09pm INHALE 1 PUFF TWICE DAILY Start: 04-10-2024 take 1 puff(s) by in halation twice daily Fluticasone Propion-Salmeterol Active 0 .ROUTE .COMPLEX 60 April 10, [...] 2017 12:00am take 1 tablet by raven th once daily Levothyroxine Sodium 150 MCG Take 1 tablet by mouth once daily Active take 1 tablet by raven th once daily Levothyroxine Sodium 150 MCG Take 1 tablet by mouth once daily Active take 1 tablet by raven th once daily in the morning Levothyroxine Sodium 175 MCG 1 tablet in the morning on an empty stomach Orally Once a day Active methylPREDNISolone 4 mg oral tablet (2 sources) Corticosteroid Start: 11-03-2023 methylPREDNISolone 4 MG as directed Orally for 6 days Oct, Active mupirocin 0.02 mg/mg topical ointment (6 sources) RNA Synthetase Inhibitor Antibacterial Start: 03-31-2024 Mupirocin Active 1 APPLIC TOPICAL Twice daily 18 07March 31, 2024 12:00am niacin 50 mg oral tablet (20 sources) Nicotinic Acid Start: 12-13-2023 take 100 mg by mouth twice daily Niacin Active 100 MG PO Twice daily December 13, 2023 12:00am Start: 04-29-2023 take 2 tablets by mo [facility] every twelve hours Niacin 50 MG 2 tablets Orally Twice a day for 30 days Apr, Not-Taking/PRN Potassium Chloride (20 sources) Start: 05-01-2024 take 1 tablet by raven once daily Potassium Chloride Active 0 .ROUTE .COMPLEX 90 May 01, 2024 11:05am Take 1 tablet by mouth once daily Start: 06-03-2017 End: 05-01-2024 take 20 mEq by mouth once daily Potassium Chloride (Kl or-Con) 20 mEq Packet Discontinued 20 MEQ PO Daily June 03, 2017 12:00am May 01, 2024 11:05am [facility] Potassium Chloride ER 20 MEQ Take 1 tablet by mouth once daily Active torsemide 20 mg oral tablet (6 sources) Loop Diuretic Start: 03-31-2024 take 20 [...] every 4 hrs for 5 days GABE: [id number] Mar, Active Start: 03-21-2018 End: 04-07-2018 take [...] (20 sources) Opioid Agonist Start: 11-25-2023 End: 05-08-2024 take 1 tablet by mouth twice daily Hydrocodone-Acetami nophen Discontinued 1 TAB PO Twice daily 60 April 10, 2024 May 08, 2024 10:44am Start: 07-06-2023 take 1 tablet by raven [...] mouth every four to six hours Hydrocodone-Acetaminophen (Saunemin) 5-325 mg Tablet Discontinued 1 TAB PO EVERY 4-6 HOURS 7 April 08, 2018 May 25, 2018 11:35am [...] of dose azithromycin 250 mg oral tablet (19 sources) Macrolide Antimicrobial Start: 12-13-2023 End: 03-31-2024 [...] 2021 4:23pm Cyclosporine (Restasis) 0.05 % Dropperette (20 sources) Start: 02-12-2023 End: 12-13-2023 Cyclosporine (Restasis) [...] mL by inhalation every four hours Ipratropium [facility] Discontinued 3 ML INHALATION Q4H February 12, 2023 12:00am December 13, 2023 10:14am Start: 11-20-2022 take 2.5 mL by inhal ation every six hours Ipratropium [facility] 0.02 % 2.5 mL Inhalation every 6 [...] 20 M G PO As Directed 12 January 14, 2024 12:00am March 31, 2024 [...] Not-Taking Start: 07-24-2021 take 1 capsule by [facility] every twelve hours Lyrica 150 MG 1 capsule Orally bid for 30 days Jun, Active Start: 05-27-2021 take 1 capsule by [facility] every twelve hours Lyrica 75 MG 1 capsule Orally Twice a day for 30 days Apr, Active vitamin b12 1 mg/ml injectable solution (20 sources) Vitamin B12 Start: 02-12-2023 End: 12-13-2023 [...] 10-28-2020 take 5 mg intravenously once Zoledronic Holr-Bazabxjw-Ngvil (Reclast) 5 mg/100 mL Piggyback Discontinued 5 [...] 06-06-2018 Complication of device; implant or graft (7 sources) 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; [...] current use of drug therapy; Translations: [Other assisted (current) drug therapy] Episodic Other aftercare (3 sources) Long-term current use of inhaled steroid; Translations: [detention (current) use of inhaled steroids] Episodic Other [...] right leg Episodic Other connective tissue disease (14 sources) Trochanteric bursitis; Translations: [Trochanteric bursitis, left hip] 11-25-2023 Episodic Other connective tissue disease (14 sources) Bursitis of hip; Translations: [Trochanteric bursitis, [...] pain] 11-25-2023 Chronic Other nervous system disorders (17 sources) Other chronic pain; Translations: [Other chronic [...] left shoulder Episodic Other non-traumatic joint disorders (11 sources) Pain in unspecified knee; Translations: [Knee [...] Chronic Other nutritional; endocrine; and metabolic disorders (5 sources) Obesity, unspecified; Translations: [Obesity, unspecified] 03-31-2024 [...] sinusitis] Onset: 08-26-2015 Episodic Residual codes; unclassified (16 sources) Obstructive sleep apnea (adult) (pediatric); Translations: [Obstructive sleep apnea (adult)(pediatric)] Onset: 01-19-2022 Chronic Residual codes; unclassified (20 sources) Obstructive sleep apnea syndrome; Translations: [Obstructive sleep apnea (adult) (pediatric)] Onset: 10-26-2016 12-19-2023 Chronic Residual codes; unclassified (14 sources) Pain; Translations: [Pain, unspecified] 10-11-2018 Episodic Residual codes; unclassified (6 sources) Edema of lower extremity; Translations: [Localized edema] 03-31-2024 Episodic Residual codes; unclassified (6 sources) Localized edema; Translations: [Edema] 03-31-2024 Episodic [...] object(s), not elsewhere classified, initial encounter; Translations: [[facility] OTH SHRP OB NOT ELSW CLASS INI] [...] 09-02-2021 Episodic Other aftercare (1 source) Other long term acute care registered nurse (current) drug therapy; Translations: [OTH SKILLED NURSING CURRENT DRUG THERAPY] Onset: 04-17-2022 Episodic Other [...] on 04-12-2024 Basophils/100 WBC (Bld) 2.0 % . [facility] Comment on above: Performed By: #### C RP, DDIMER, CBC, ESR #### [address] Automated basophil countOrde red By: Coy Cassidy on 04-12-2024 Basophils (Bld) [#/Vol] 0.1 10*3/uL 0.0-0.2 [facility] Comment on above: Performed By: #### C RP, DDIMER, CBC, ESR #### [address] Automated blood monocyte cou ntOrdered By: Coy Cassidy on 04-12-2024 Monocytes (Bld) [#/Vol] 0.4 10*3/uL 0.0-0.8 [facility] Comment on above: Performed By: #### C RP, DDIMER, CBC, ESR #### [address] Automated eosinophil %Ordere d By: Coy Cassidy on 04-12-2024 Eosinophils/100 WBC (Bld) 6.0 % . [facility] Comment on above: Performed By: #### C RP, DDIMER, CBC, ESR #### [address] Automated eosinophil countOr dered By: Coy Cassidy on 04-12-2024 Eosinophils (Bld) [#/Vol] 0.3 10*3/uL 0.0-0.45 [facility] Comment on above: Performed By: #### C RP, DDIMER, CBC, ESR #### [address] Automated monocyte %Ordered By: Coy Cassidy on 04-12-2024 Monocytes/100 WBC (Bld) 9.0 % . [facility] Comment on above: Performed By: #### C RP, DDIMER, CBC, ESR #### [address] Automated neutrophil %Ordere d By: Coy Cassidy on 04-12-2024 Neutrophils/100 WBC (Bld) 44.4 % . [facility] Comment on above: Performed By: #### C RP, DDIMER, CBC, ESR #### [address] C reactive protein [Mass/vol ume] in Serum or PlasmaOrdered By: Coy Cassidy on 04-12-2024 CRP [Mass/Vol] < 0.5 mg/dL 0.0-0.5 [facility] C-Reactive Proteinon 024 CRP [Mass/Vol] mg/L Normal 0.0-0.5 [facility] Comment on above: Result Comment: PERF ORMED BY: [place] [address] PATHOLOGIST REPAIRER [employer] POWER GUTIERREZ M.D. Performed By: #### C RP, DDIMER, CBC, ESR #### [address] Complete Blood Count Auto Di ffon 04-12-2024 Mean Corpuscular HGB Conc 32.9 g/dL Normal 32.0-35.0 The Counts Include [address] [facility] At [facility] Comment on above: Performed By: #### C RP, DDIMER, CBC, ESR #### [address] NRBC% 0.3 /100{WBC} Normal 0-0.5 [facility] Comment on above: Performed By: #### C RP, DDIMER, CBC, ESR #### [address] D-Dimer High Sensitivityon 0 04-12-2024 D-Dimer High Sensitivity 463 ng/mL High 0-243 The Counts Include 234 Beds At [facility] Comment on above: Result [...] coagulation studies. Please contact the laboratory at [phone] for redraw instructions. PERFORMED BY: [place] [phone] PATHOLOGIST REPAIRER [employer] GUTIERREZ M.D. Performed By: #### C RP, DDIMER, CBC, ESR #### [address] Erythrocyte Sedimentation Ra prabhjot 04-12-2024 ESR (Bld) [Velocity] 32 mm/h High 0-29 The Counts Include [address] [facility] At [facility] Comment on above: Result Comment: PERF ORMED BY: [place] [address] PATHOLOGIST REPAIRER [employer] GUTIERREZ M.D. Performed By: #### C RP, DDIMER, CBC, ESR #### [address] Erythrocyte distribution wid th [Ratio] by Automated countOrdered By: Coy Cassidy on 04-12-2024 Erythrocyte distribution width (RBC) [Ratio] 16.4 % High 11.9-15.3 [facility] Comment on above: Performed By: #### C RP, DDIMER, CBC, ESR #### [address] Erythrocyte sedimentation ra te by Photometric methodOrdered By: Coy Cassidy on 04-12-2024 ESR Photometric method (Bld) [Velocity] 32 mm/hr High 0-29 [facility] Erythrocytes [#/volume] in B lood by Automated countOrdered By: Coy Cassidy on 04-12-2024 RBC (Bld) [#/Vol] 4.24 10*6/uL 3.60-5.00 [facility] Comment on above: Performed By: #### C RP, DDIMER, CBC, ESR #### [address] Fibrin D-dimer [Presence] in Platelet poor plasma by Latex agglutinationOrdered By: Coy Cassidy on 04-12-2024 Fibrin D-dimer LA Ql (PPP) 463 ng/mL High 0-243 [facility] Comment on above: The reference range [...] coagulation studies. Please contact the laboratory at [phone] for redraw instructions. Hematocrit [Volume Fraction] of Blood by Automated countOrdered By: Coy Cassidy on 04-12-2024 Hematocrit (Bld) [Volume fraction] 36.9 % 34.0-46.4 [facility] Comment on above: Performed By: #### C RP, DDIMER, CBC, ESR #### [address] Hemoglobin [Mass/volume] in BloodOrdered By: Coy Cassidy on 04-12-2024 Hemoglobin (Bld) [Mass/Vol] 12.2 g/dL 11.8-15.4 [facility] Comment on above: Performed By: #### C RP, DDIMER, CBC, ESR #### [facility] [address] [place] [address] [place] Leukocytes [#/volume] correc ana for nucleated erythrocytes in Blood by Automated counOrdered By: Coy Cassidy on 04-12-2024 WBC corrected for nucl RBC Auto (Bld) [#/Vol] 4.8 10*3/uL 3.8-11.6 [facility] Leukocytes [#/volume] in Blo od by Automated countOrdered By: Coy Cassidy on 04-12-2024 WBC (Bld) [#/Vol] 4.8 10*3/uL 3.8-11.6 [facility] Comment on above: Performed By: #### C RP, DDIMER, CBC, ESR #### [place] [address] [place] Lymphocytes [#/volume] in Bl ood by Automated countOrdered By: Coy Cassidy on 04-12-2024 Lymphocytes (Bld) [#/Vol] 1.9 10*3/uL 1.00-4.8 [facility] Comment on above: Performed By: #### C RP, DDIMER, CBC, ESR #### [address] Lymphocytes/100 leukocytes i n Blood by Automated countOrdered By: Coy Cassidy on 04-12-2024 Lymphocytes/100 WBC (Bld) 38.6 % . [facility] Comment on above: Performed By: #### C RP, DDIMER, CBC, ESR #### [address] MCH [Entitic mass] by Automa ana countOrdered By: Coy Cassidy on 04-12-2024 MCH (RBC) [Entitic mass] 28.7 pg 24.7-34.3 [facility] Comment on above: Performed By: #### C RP, DDIMER, CBC, ESR #### [address] MCHC Auto (RBC) [Mass/Vol]Or dered By: Coy Cassidy on 04-12-2024 MCHC (RBC) [Mass/Vol] 32.9 g/dL 32.0-35.0 [facility] MCV [Entitic volume] by Auto mated countOrdered By: Coy Cassidy on 04-12-2024 MCV (RBC) [Entitic vol] 87.1 fL 80-100 [facility] Comment on above: Performed By: #### C RP, DDIMER, CBC, ESR #### [facility] [address] [place] [address] Neutrophils [#/volume] in Bl ood by Automated countOrdered By: Coy Cassidy on 04-12-2024 Neutrophils (Bld) [#/Vol] 2.1 10*3/uL 1.8-7.7 [facility] Comment on above: Performed By: #### C RP, DDIMER, CBC, ESR #### [facility] [address] [place] [address] [place] Nucleated erythrocytes [Pres ence] in Blood by Automated countOrdered By: Coy Cassidy on 04-12-2024 Nucleated RBC Auto Ql (Bld) 0.3 /100{WBC} 0-0.5 [facility] Platelet mean volume [Entiti c volume] in Blood by Automated countOrdered By: Coy Cassidy on 04-12-2024 Platelet mean volume (Bld) [Entitic vol] 8.5 fL 6.3-10.7 [facility] Comment on above: Performed By: #### C RP, DDIMER, CBC, ESR #### [facility] [address] [place] [address] [place] Platelets [#/volume] in Bloo d by Automated countOrdered By: Coy Cassidy on 04-12-2024 Platelets (Bld) [#/Vol] 380 10*3/uL 150-450 [facility] Comment on above: Performed By: #### C RP, DDIMER, CBC, ESR #### [facility] [address] [place] [address] [place] Basophils Auto (Bld) [#/Vol] on 03-31-2024 Basophils (Bld) [#/Vol] 0.1 10 3/uL 0.0-0.1 [facility] Basophils/100 WBC Auto (Bld) on 03-31-2024 Basophils/100 WBC (Bld) 1.5 % 0.2-2.0 [facility] Eosinophils/100 WBC Auto (Bl d)on 03-31-2024 Eosinophils/100 WBC (Bld) 5.6 % 0.9-7.0 [facility] Erythrocyte distribution wid th Auto (RBC) [Ratio]on 03-31-2024 Erythrocyte distribution width (RBC) [Ratio] 15.8 % High 11.0-15.0 [facility] Estimated glomerular filtrat ion rate (GFR) non- Americanon 03-31-2024 GFR/1.73 sq M.predicted among non-blacks MDRD (S/P/Bld) [Vol rate/Area] mL/min/{1.73_m2} >=60 [facility] Globulin Calc (S) [Mass/Vol] on 03-31-2024 Globulin (S) [Mass/Vol] 3.4 g/dL [facility] Hematocrit Auto (Bld) [Volum e fraction]on 03-31-2024 Hematocrit (Bld) [Volume fraction] 37.6 % 36.0-48.0 [facility] Hemoglobin [Mass/volume] in Bloodon 03-31-2024 Hemoglobin (Bld) [Mass/Vol] 11.8 g/dL Low 12.0-16.0 [facility] Laboratory - Chemistry and C hemistry - challengeon 03-31-2024 Albumin [Mass/Vol] 3.7 g/dL 3.4-5.0 [facility] ALP [Catalytic activity/Vol] 51 U/L 46-116 [facility] ALT [Catalytic activity/Vol] 29 U/L 14-59 [facility] AST [Catalytic activity/Vol] 18 U/L 15-37 [facility] Bilirubin [Mass/Vol] 0.4 mg/dL 0.2-1.0 [facility] Calcium [Mass/Vol] 9.0 mg/dL 8.5-10.1 [facility] Chloride [Moles/Vol] 106 mmol/L 98-107 [facility] CO2 [Moles/Vol] 28.6 mmol/L 21.0-32.0 [facility] Creatinine [Mass/Vol] 0.88 mg/dL 0.55-1.02 [facility] GFR/1.73 sq M.predicted MDRD (S/P/Bld) [Vol rate/Area] mL/min/{1.73_m2} >=60 [facility] Glucose [Mass/Vol] 89 mg/dL 74-106 [facility] Potassium [Moles/Vol] 4.1 mmol/L 3.5-5.1 [facility] Protein [Mass/Vol] 7.1 g/dL 6.4-8.2 [facility] Sodium [Moles/Vol] 142 mmol/L 136-145 [facility] TSH Qn 2.110 m[IU]/L 0.358-3.740 [facility] Urea nitrogen [Mass/Vol] 15.0 mg/dL 7.0-18.0 [facility] Urea nitrogen/Creatinine [Mass ratio] 17.0 mg/mg [facility] Laboratory - Hematology and Cell countson 03-31-2024 Immature granulocytes/100 WBC (Bld) 0.2 % 0.0-0.5 [facility] Leukocytes [#/volume] correc ana for nucleated erythrocytes in Blood by Automated counon 03-31-2024 WBC corrected for nucl RBC Auto (Bld) [#/Vol] 4.1 10 3/uL 4.0-11.0 [facility] Lymphocytes Auto (Bld) [#/Vo l]on 03-31-2024 Lymphocytes (Bld) [#/Vol] 1.6 10 3/uL 1.2-3.8 [facility] Lymphocytes/100 WBC Auto (Bl d)on 03-31-2024 Lymphocytes/100 WBC (Bld) 38.5 % 20.5-60.0 [facility] MCH Auto (RBC) [Entitic mass ]on 03-31-2024 MCH (RBC) [Entitic mass] 28.6 pg 26.7-34.0 [facility] MCHC Auto (RBC) [Mass/Vol]on 03-31-2024 MCHC (RBC) [Mass/Vol] 31.4 g/dL 29.9-35.2 [facility] MCV Auto (RBC) [Entitic vol] on 03-31-2024 MCV (RBC) [Entitic vol] 91.0 fL 81.0-99.0 [facility] Monocytes Auto (Bld) [#/Vol] on 03-31-2024 Monocytes (Bld) [#/Vol] 0.4 10 3/uL 0.3-0.8 [facility] Monocytes/100 WBC Auto (Bld) on 03-31-2024 Monocytes/100 WBC (Bld) 10.2 % 1.7-12.0 [facility] Neutrophils Auto (Bld) [#/Vo l]on 03-31-2024 Neutrophils (Bld) [#/Vol] 1.8 10 3/uL 1.4-6.5 [facility] Neutrophils/100 WBC Auto (Bl d)on 03-31-2024 Neutrophils/100 WBC (Bld) 44.0 % 43.0-75.0 [facility] No Panel Informationon 03-31 Eosinophils # (Auto) 0.2 10 3/uL 0.0-0.7 [facility] Immature Granulocyte # (Auto) 0.01 10 3/uL 0.00-0.03 [facility] Urine Random Creatinine <13.00 mg/dL Low 20.00-300.0 0 [facility] Urine Random Total Protein <6.0 mg/dL <=11.9 [facility] Platelet mean volume Auto (B ld) [Entitic vol]on 03-31-2024 Platelet mean volume (Bld) [Entitic vol] 10.0 fL 9.5-13.5 [facility] Platelets Auto (Bld) [#/Vol] on 03-31-2024 Platelets (Bld) [#/Vol] 323 10 3/uL 150-450 [facility] RBC Auto (Bld) [#/Vol]on RBC (Bld) [#/Vol] 4.13 10 6/uL Low 4.20-5.40 [facility] Serum or plasma albumin/glob ulin mass ratioon 03-31-2024 Albumin/Globulin [Mass ratio] 1.1 {ratio} [facility] Serum or plasma anion gap de terminationon 03-31-2024 Anion gap [Moles/Vol] 11.5 mmol[facility] protein/creatinine rat ioon 03-31-2024 Protein/Creatinine (U) [Ratio] 0.00 [facility] Estimated glomerular filtrat ion rate (GFR) non- Americanon 01-31-2024 GFR/1.73 sq M.predicted among non-blacks MDRD (S/P/Bld) [Vol rate/Area] mL/min/{1.73_m2} >=60 [facility] Laboratory - Chemistry and C hemistry - challengeon 01-31-2024 Calcium [Mass/Vol] 9.9 mg/dL 8.5-10.1 [facility] Chloride [Moles/Vol] 108 mmol/L High 98-107 [facility] CO2 [Moles/Vol] 25.0 mmol/L 21.0-32.0 [facility] Creatinine [Mass/Vol] 0.80 mg/dL 0.55-1.02 [facility] GFR/1.73 sq M.predicted MDRD (S/P/Bld) [Vol rate/Area] mL/min/{1.73_m2} >=60 [facility] Glucose [Mass/Vol] 85 mg/dL 74-106 [facility] Potassium [Moles/Vol] 4.4 mmol/L 3.5-5.1 [facility] Sodium [Moles/Vol] 143 mmol/L 136-145 [facility] Urea nitrogen [Mass/Vol] 26.0 mg/dL High 7.0-18.0 [facility] Urea nitrogen/Creatinine [Mass ratio] 32.5 mg/mg [facility] No Panel Informationon 01-30 25-Hydroxy Vitamin D Total 75.9 ng/mL [facility] Comment on above: <20 ng/mL Vit D defi cient20-<30 ng/mL Vit D [id number] ng/mL Vit D sufficient>100 ng/mL Potential Toxicity Serum or plasma anion gap de terminationon 01-31-2024 Anion gap [Moles/Vol] 14.4 mmol/L [facility] XR hip BI w [id number] 11-03-19 24 XR hip BI w [id number] [facility] [place] [address] XRay Report Signed Patient: Tiana Louis MR#: [id number] : 1945 Acct:[id number] Age/Sex: 78 / F ADM Date: 11/03/23 Loc: SOXD Room: Type: [facility] Attending Dr: Coy Cassidy II, MD Copies [...] Tomeka Obando M.D.11/03/2023 11:09 AM Dictation Location: [place] [address] Transcribed By: [facility] 11/03/23 1109 Dictated By: Tomeka Obando MD 11/03/23 1106 Signed By: 11/03/23 1109 Normal The Counts Include 234 Beds At [facility] XR hand BI 3Von 07-13-2023 XR hand BI 3V [facility] [place] [address] [place] [address] XRay Report Signed Patient: Tiana Louis MR#: [id number] : 1945 Acct:[id number] Age/Sex: 78 / F ADM Date: 07/13/23 Loc: [facility] Room: Type: [facility] Attending Dr: Barry Patel MD Copies to: [...] Vaibhav Lemus M.D.07/13/2023 4:07 PM Dictation Location: [place] [address] Transcribed By: [facility] 07/13/231606 Dictated By: Vaibhav Lemus DO 07/13/231605 Signed By: 07/13/23 160 Normal The Counts Include 234 [facility] At [facility] MM screening mammo BI w/CADo n 07-08-2023 MM screening mammo BI w/CAD [facility] [place] [address] [place] [address] Mammography Report Signed Patient: Tiana Louis MR#: [id number] : 1945 Acct:[id number] Age/Sex: 78 / F ADM Date: 07/08/23 Loc: [place] Room: Type: [facility] CL Attending Dr: Referral Self Copies to: Chucho [...] Tomeka Obando M.D.07/08/2023 2:27 PM Dictation Location: [facility] Transcribed By: STEF 07/08/23 1427 Dictated By: Tomeka Obando MD 07/08/23 142 Signed By: 07/08/23 142 Normal The Counts Include 234 [facility] At [facility] XR shoulder LT min 2V*on XR shoulder LT min 2V* [facility] [place] [address] [place] [address] XRay Report Signed Patient: Tiana Louis MR#: [id number] : 1945 Acct:[id number] Age/Sex: 78 / F ADM Date: 06/08/23 Loc: [facility] Room: Type: [facility] Attending Dr: Barry Patel MD Copies to: [...] Tomeka Obando M.D.06/08/2023 4:48 PM Dictation Location: [place] [address] Transcribed By: STEF 06/08/23 1648 Dictated By: Tomeka Obando MD 06/08/23 1637 Signed By: 06/08/23 1648 Normal The Counts Include 234 Beds At [facility] Alanine aminotransferase [En zymatic activity/volume] in Serum or PlasmaOrdered By: Barry Patel on 02-12-2023 ALT [Catalytic activity/Vol] 17 U/L [facility] Albumin [Mass/volume] in Ser um or Plasma by Bromocresol green (BCG) dye binding methoOrdered By: Barry Patel on 02-12-2023 Albumin BCG dye [Mass/Vol] 4.0 g/dL 3.5-5.7 [facility] Alkaline phosphatase [Enzyma tic activity/volume] in Serum or PlasmaOrdered By: Barry Patel on 02-12-2023 ALP [Catalytic activity/Vol] 46 U/L 34-104 [facility] Aspartate aminotransferase [ Enzymatic activity/volume] in Serum or PlasmaOrdered By: Barry Patel on 02-12-2023 AST [Catalytic activity/Vol] 14 U/L 13-39 [facility] Basophils Auto (Bld) [#/Vol] Ordered By: Barry Patel on 02-12-2023 Basophils (Bld) [#/Vol] 0.1 10*3/uL 0.0-0.2 [facility] Basophils/100 WBC Auto (Bld) Ordered By: Barry Patel on 02-12-2023 Basophils/100 WBC (Bld) 2.1 % . [facility] Bilirubin.total [Mass/volume ] in Serum or PlasmaOrdered By: Barry Patel on 02-12-2023 Bilirubin [Mass/Vol] 0.4 mg/dL 0.3-1.0 [facility] Calcium [Mass/volume] in Ser um or PlasmaOrdered By: Barry Patel on 02-12-2023 Calcium [Mass/Vol] 9.6 mg/dL 8.6-10.3 [facility] Carbon dioxide, total [Moles /volume] in Serum or PlasmaOrdered By: Barry Patel on 02-12-2023 CO2 [Moles/Vol] 24.6 mmol/L 21.0-31.0 [facility] Chloride [Moles/volume] in S dulce or PlasmaOrdered By: Barry Patel on 02-12-2023 Chloride [Moles/Vol] 112 mmol/L 98-107 [facility] Creatinine [Mass/volume] in Serum or PlasmaOrdered By: Barry Patel on 02-12-2023 Creatinine [Mass/Vol] 0.78 mg/dL 0.60-1.20 [facility] Eosinophils Auto (Bld) [#/Vo l]Ordered By: Barry Patel on 02-12-2023 Eosinophils (Bld) [#/Vol] 0.5 10*3/uL 0.0-0.45 [facility] Eosinophils/100 WBC Auto (Bl d)Ordered By: Barry Patel on 02-12-2023 Eosinophils/100 WBC (Bld) 10.5 % . [facility] Erythrocyte distribution wid th Auto (RBC) [Ratio]Ordered By: Barry Patel on 02-12-2023 Erythrocyte distribution width (RBC) [Ratio] 14.7 % 11.9-15.3 [facility] Globulin Calc (S) [Mass/Vol] Ordered By: Barry Patel on 02-12-2023 Globulin (S) [Mass/Vol] 2.4 g/dL [facility] Glucose [Mass/volume] in Ser um or PlasmaOrdered By: Barry Patel on 02-12-2023 Glucose [Mass/Vol] 68 mg/dL 70-100 [facility] Hematocrit Auto (Bld) [Volum e fraction]Ordered By: Barry Patel on 02-12-2023 Hematocrit (Bld) [Volume fraction] 38.2 % 34.0-46.4 [facility] Hemoglobin [Mass/volume] in BloodOrdered By: Barry Patel on 02-12-2023 Hemoglobin (Bld) [Mass/Vol] 12.4 g/dL 11.8-15.4 [facility] Leukocytes [#/volume] correc ana for nucleated erythrocytes in Blood by Automated counOrdered By: Barry Patel on 02-12-2023 WBC corrected for nucl RBC Auto (Bld) [#/Vol] 4.6 10*3/uL 3.8-11.6 [facility] Lymphocytes Auto (Bld) [#/Vo l]Ordered By: Barry Patel on 02-12-2023 Lymphocytes (Bld) [#/Vol] 1.5 10*3/uL 1.00-4.8 [facility] Lymphocytes/100 WBC Auto (Bl d)Ordered By: Barry Patel on 02-12-2023 Lymphocytes/100 WBC (Bld) 31.3 % . [facility] MCH Auto (RBC) [Entitic mass ]Ordered By: Barry Patel on 02-12-2023 MCH (RBC) [Entitic mass] 29.7 pg 24.7-34.3 [facility] MCHC Auto (RBC) [Mass/Vol]Or dered By: Barry Patel on 02-12-2023 MCHC (RBC) [Mass/Vol] 32.5 g/dL 32.0-35.0 [facility] MCV Auto (RBC) [Entitic vol] Ordered By: Barry Patel on 02-12-2023 MCV (RBC) [Entitic vol] 91.4 fL 80-100 [facility] Monocytes Auto (Bld) [#/Vol] Ordered By: Barry Patel on 02-12-2023 Monocytes (Bld) [#/Vol] 0.5 10*3/uL 0.0-0.8 [facility] Monocytes/100 WBC Auto (Bld) Ordered By: Barry Patel on 02-12-2023 Monocytes/100 WBC (Bld) 9.9 % . [facility] Neutrophils Auto (Bld) [#/Vo l]Ordered By: Barry Patel on 02-12-2023 Neutrophils (Bld) [#/Vol] 2.1 10*3/uL 1.8-7.7 [facility] Neutrophils/100 WBC Auto (Bl d)Ordered By: Barry Patel on 02-12-2023 Neutrophils/100 WBC (Bld) 46.2 % . [facility] No Panel InformationOrdered By: Barry Patel on 02-12-2023 Estimated GFR (CKD-EPI) > 60.0 mL/Min [facility] Creatinine Clearance (Chem N/A [facility] Nucleated erythrocytes [Pres ence] in Blood by Automated countOrdered By: Barry Patel on 02-12-2023 Nucleated RBC Auto Ql (Bld) 0.0 /100{WBC} 0-0.5 [facility] Platelet mean volume Auto (B ld) [Entitic vol]Ordered By: Barry Patel on 02-12-2023 Platelet mean volume (Bld) [Entitic vol] 8.3 fL 6.3-10.7 [facility] Platelets Auto (Bld) [#/Vol] Ordered By: Barry Patel on 02-12-2023 Platelets (Bld) [#/Vol] 287 10*3/uL 150-450 [facility] Potassium [Moles/volume] in Serum or PlasmaOrdered By: Barry Patel on 02-12-2023 Potassium [Moles/Vol] 4.9 mmol/L 3.5-5.1 [facility] Protein [Mass/volume] in Ser um or PlasmaOrdered By: Barry Patel on 02-12-2023 Protein [Mass/Vol] 6.4 g/dL 6.4-8.9 [facility] RBC Auto (Bld) [#/Vol]Ordere d By: Barry Patel on 02-12-2023 RBC (Bld) [#/Vol] 4.18 10*6/uL 3.60-5.00 [facility] Serum or plasma albumin/glob ulin mass ratioOrdered By: Barry Patel on 02-12-2023 Albumin/Globulin [Mass ratio] 1.7 {ratio} [facility] Serum or plasma anion gap de terminationOrdered By: Barry Patel on 02-12-2023 Anion gap [Moles/Vol] 11.3 mmol/L 6.0-15.0 [facility] Sodium [Moles/volume] in Ser um or PlasmaOrdered By: Barry Patel on 02-12-2023 Sodium [Moles/Vol] 143 mmol/L 136-145 [facility] Urea nitrogen [Mass/volume] in Serum or PlasmaOrdered By: Barry Patel on 02-12-2023 Urea nitrogen [Mass/Vol] 24 mg/dL 7-25 [facility] WBC Auto (Bld) [#/Vol]Ordere d By: Barry Patel on 02-12-2023 WBC (Bld) [#/Vol] 4.6 10*3/uL 3.8-11.6 [facility] CBC AUTO DIFFon 11-17-2022 BASO # 0.0 103/ul Normal 0.0-0.1 [facility] Comment on above: Performed By: #### D ATCBC #### [facility] [address] [place], [place] [address] Dr. Jackeline Thakkar Basophils/100 WBC (Bld) 0.8 % Normal 0.2-2.0 [facility] Comment on above: Performed By: #### D ATCBC #### [facility] [address] [address] [address] Jackeline Thakkar EO # 0.1 103/ul Normal 0.0-0.7 [facility] Comment on above: Performed By: #### D ATCBC #### [facility] [address] [place] [address] Dr. Jackeline Thakkar Eosinophils/100 WBC (Bld) 2.4 % Normal 0.9-7.0 [facility] Comment on above: Performed By: #### D ATCBC #### [facility] [address] [place] [address] Dr. Jackeline Thakkar Erythrocyte distribution width (RBC) [Ratio] 14.4 % Normal 11.0-15.0 [facility] Comment on above: Performed By: #### D ATCBC #### [facility] [address] [place] [address] Dr. Jackeline Thakkar Hematocrit (Bld) [Volume fraction] 40.8 % Normal 36.0-48.0 [facility] Comment on above: Performed By: #### D ATCBC #### [facility] [address] [place] [address] Dr. Jackeline Thakkar Hemoglobin (Bld) [Mass/Vol] 13.5 g/dL Normal 12.0-16.0 [facility] Comment on above: Performed By: #### D ATCBC #### [facility] [address] [place] [address] Dr. Jackeline Thakkar IG # 0.01 10e3/ul Normal 0.00-0.03 [facility] Comment on above: Performed By: #### D ATCBC #### [facility] [address] [place] [address] Dr. Jackeline Thakkar IG % 0.2 % Normal 0.0-0.5 [facility] Comment on above: Performed By: #### D ATCBC #### [facility] [address] [place] [address] Dr. Jackeline Thakkar LYMPH # 1.4 103/ul Normal 1.2-3.8 [facility] Comment on above: Performed By: #### D ATCBC #### [facility] [address] [place] [address] Dr. Jackeline Thakkar Lymphocytes/100 WBC (Bld) 29.2 % Normal 20.5-60.0 [facility] Comment on above: Performed By: #### D ATCBC #### [facility] [address] [place] [address] Dr. Jackeline Thakkar MCH (RBC) [Entitic mass] 30.1 pg Normal 26.7-34.0 [facility] Comment on above: Performed By: #### D ATCBC #### [facility] [address] [place] [address] Dr. Jackeline Thakkar MCHC (RBC) [Mass/Vol] 33.1 g/dL Normal 29.9-35.2 [facility] Comment on above: Performed By: #### D ATCBC #### [facility] [address] [place] [address] Dr. Jackeline Thakkar MCV (RBC) [Entitic vol] 91.1 fL Normal 81.0-99.0 [facility] Comment on above: Performed By: #### D ATCBC #### [facility] [address] [place] [address] Dr. Jackeline Thakkar MONO # 0.6 103/ul Normal 0.3-0.8 [facility] Comment on above: Performed By: #### D ATCBC #### [facility] [address] [place] [address] Dr. Jackeline Thakkar Monocytes/100 WBC (Bld) 11.4 % Normal 1.7-12.0 [facility] Comment on above: Performed By: #### D ATCBC #### [facility] [address] [place] [address] Dr. Jackeline Thakkar NEUT # 2.8 103/ul Normal 1.4-6.5 [facility] Comment on above: Performed By: #### D ATCBC #### [facility] [address] [place] [address] Dr. Jackeline Thakkar Neutrophils/100 WBC (Bld) 56.0 % Normal 43.0-75.0 [facility] Comment on above: Performed By: #### D ATCBC #### [facility] [address] [place] [address] Dr. Jackeline Thakkar Platelet mean volume (Bld) [Entitic vol] 9.8 fL Normal 9.5-13.5 [facility] Comment on above: Performed By: #### D ATCBC #### [facility] [address] [place] [address] Dr. Jackeline Thakkar PLT 352 103/ul Normal 150-450 [facility] Comment on above: Performed By: #### D ATCBC #### [facility] [address] [place] [address] Dr. Jackeline Thakkar RBC 4.48 106/ul Normal 4.20-5.40 [facility] Comment on above: Performed By: #### D ATCBC #### [facility] [address] [place] [address] Dr. Jackeline Thakkar WBC 4.9 103/ul Normal 4.0-11.0 [facility] Comment on above: Performed By: #### D ATCBC #### [facility] [address] [place] [address] Dr. Jackeline Thakkar RYLAN - VITAMIN Don 11-17-2022 VIT D 25-OH 70.3 ng/mL Normal [facility] Comment on above: Performed By: #### D SUMMER DATBMP #### [facility] [address] [place] [address] Dr. Jackeline Thakkar VIT D RANGES SEE BELOW Normal [facility] Comment on above: Result Comment: <20 ng/mL Vit D deficient 20 - <30 ng/mL Vit D insufficient 30 - 100 ng/mL Vit D sufficient >100 ng/mL Potential Toxicity Performed By: #### D ATVITBelle DATBMP #### [facility] [address] [place] [address] Dr. Jackeline Thakkar RYLAN- BMP WITH LIPIDon 2022 Anion gap [Moles/Vol] 13.4 mmol/L Normal [facility] Comment on above: Performed By: #### D ATVITBelle DATBMP #### [facility] [address] [place] [address] Dr. Jackeline Thakkar Calcium [Mass/Vol] 9.7 mg/dL Normal 8.5-10.1 [facility] Comment on above: Performed By: #### D SUMMER DATBMP #### [facility] [address] [place] [address] Dr. Jackeline Thakkar Chloride [Moles/Vol] 106 mmol/L Normal 98-107 [facility] Comment on above: Performed By: #### D SUMMER DATBMP #### [facility] [address] [place] [address] Dr. Jackeline Thakkar Cholesterol [Mass/Vol] 291 mg/dL Critically high <=200 [facility] Comment on above: Performed By: #### D SUMMER DATBMP #### [facility] [address] [place] [address] Dr. Jackeline Thakkar Cholesterol in HDL [Mass/Vol] 70 mg/dL Critically high 40-60 [facility] Comment on above: Performed By: #### D SUMMER DATBMP #### [facility] [address] [place] [address] Dr. Jackeline Thakkar Cholesterol in LDL [Mass/Vol] 193.6 mg/dL Normal [facility] Comment on above: Performed By: #### D SUMMER DATBMP #### [facility] [address] [place] [address] Dr. Jackeline Thakkar CO2 [Moles/Vol] 20.9 mmol/L Critically low 21.0-32.0 [facility] Comment on above: Performed By: #### D SUMMER DATBMP #### [facility] [address] [place] [address] Dr. Jackeline Thakkar Creatinine [Mass/Vol] 0.75 mg/dL Normal 0.55-1.02 [facility] Comment on above: Performed By: #### D SUMMER DATBMP #### [facility] [address] [place] [address] Dr. Jackeline Thakkar EGFR-AF PALAUAN >60 Normal >=60 [facility] Comment on above: Performed By: #### D ATJEFF, DATBMP #### [facility] [address] [address] [address] Jackeline Thakkar EGFR-NON AF PALAUAN >60 Normal >=60 [facility] Comment on above: Performed By: #### D ATJEFF, DATBMP #### [facility] [address] [address] [address] Jackeline Thakkar Glucose [Mass/Vol] 104 mg/dL Normal 74-106 [facility] Comment on above: Performed By: #### D SUMMER, DATBMP #### [facility] [address] [address] [address] Jackeline Thakkar HDL NORMAL > or = 60 mg/dl - LO W CARDIOVASCULAR RISK <40 mg/dl - HIGH CARDIOVASCULAR RISK Normal [facility] Comment on above: Performed By: #### D SUMMER DATBMP #### [facility] [address] [address] [address] Jackeline Thakkar LDL CALC NORMAL SEE BELOW Normal [facility] Comment on above: Result Comment: <100 mg/dl OPTIMAL 100 - 129 mg/dl NEAR OR ABOVE OPTIMAL 130 - 159 mg/dl BORDERLINE HIGH 160 - 189 mg/dl HIGH >190 mg/dl VERY HIGH Performed By: #### D SUMMER, DATBMP #### [facility] [address] [address] [address] Jackeline Thakkar Potassium [Moles/Vol] 4.3 mmol/L Normal 3.5-5.1 [facility] Comment on above: Performed By: #### D SUMMER, DATBMP #### [facility] [address] [address] [address] Jackeline Thakkar Sodium [Moles/Vol] 136 mmol/L Normal 136-145 [facility] Comment on above: Performed By: #### D ATJEFF, DATBMP #### [facility] [address] [address] [address] Jackeline Thakkar Triglyceride [Mass/Vol] 137 mg/dL Normal <=150 [facility] Comment on above: Performed By: #### D ATVITD, DATBMP #### [facility] [address] [address] [address] Jackeline Thakkar Urea nitrogen [Mass/Vol] 30.0 mg/dL Critically high 7.0-18.0 [facility] Comment on above: Performed By: #### D ATVITD, DATBMP #### [facility] [address] [address] [address] Jackeline Thakkar Urea nitrogen/Creatinine [Mass ratio] 40.0 mg/mg Normal [facility] Comment on above: Performed By: #### D ATVITD, DATBMP #### [facility] [address] [address] [address] Jackeline Thakkar VLDL CALC 27.4 mg/dL Normal [facility] Comment on above: Performed By: #### D ATVITD, DATBMP #### [facility] [address] [address] [address] Jackeline Thakkar XR hip RT min 2V(w/wo pelvis )*on 10-29-2022 XR hip RT min 2V(w/wo pelvis)* [facility] [employer] Other XR hip RT min 2V(w/wo pelvis)* [facility] Other XR hip RT min 2V(w/wo pelvis)* [address] [place] [address] [employer] Other XR hip RT min 2V(w/wo pelvis)* [place] [address] [employer] Other XR hip RT min 2V(w/wo pelvis)* XRay Report [employer] Other XR hip RT min 2V(w/wo pelvis)* Signed [employer] Other XR hip RT min 2V(w/wo pelvis)* Patient: Tiana Louis MR#: [id number] [employer] Other XR hip RT min 2V(w/wo pelvis)* : 1945 Acct:[id number] [employer] Other XR hip RT min 2V(w/wo pelvis)* Age/Sex: 77 / F ADM Date: 10/29/22 [employer] Other XR hip RT min 2V(w/wo pelvis)* Loc: [facility] Room: Type: [facility] [employer] Other XR hip RT min 2V(w/wo pelvis)* Attending Dr: Barry Valenzuela MD [facility] Other XR hip RT min 2V(w/wo pelvis)* Copies to: Barry Valenzuela MD [employer] Other XR hip RT min 2V(w/wo pelvis)* Ordering Provider: Barry Valenzuela MD [employer] Other XR hip RT min 2V(w/wo pelvis)* Date of Service: 10/29/22 [employer] Other XR hip RT min 2V(w/wo pelvis)* XR/XR hip RT min 2V(w/wo pelvis)*: Bilateral sacroiliitis [employer] Other XR hip RT min 2V(w/wo pelvis)* RIGHT HIP - 2 views: [employer] Other XR hip RT min 2V(w/wo pelvis)* CLINICAL HISTORY: Low back pain radiating into right hip and groin. 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 Please note that the femoral hardware is incompletely visualized on today's study. [employer] Other XR hip RT min 2V(w/wo pelvis)* Additional hardware is seen at the lumbosacral junction without evidence of hardware complication. [employer] Other XR hip RT min 2V(w/wo pelvis)* Degenerative changes are noted involving the SI joints. Left hip appears unremarkable. No acute [employer] Other XR hip RT min 2V(w/wo pelvis)* bony process. [employer] Other XR hip RT min 2V(w/wo pelvis)* XR/XR hip RT min 2V(w/wo pelvis)* [employer] Other XR hip RT min 2V(w/wo pelvis)* IMPRESSION: [employer] Other XR hip RT min 2V(w/wo pelvis)* NO ACUTE BONY PROCESS OR EVIDENCE OF HARDWARE COMPLICATION.. [employer] Other XR hip RT min 2V(w/wo pelvis)* Impression dictated by: Mir Delong Jr., D.O.10/29/2022 3:09 PM [employer] Other XR hip RT min 2V(w/wo pelvis)* Dictation Location: [place] [address] [employer] Other XR hip RT min 2V(w/wo pelvis)* Transcribed By: STEF 10/29/22 1509 [employer] Other XR hip RT min 2V(w/wo pelvis)* Dictated By: Mir Delong Jr, DO 10/29/22 1508 [employer] Other XR hip RT min 2V(w/wo pelvis)* Signed By: [employer] Other XR hip RT min 2V(w/wo pelvis)* 10/29/22 1500 [employer] Other Creatinine (Bld) [Mass/Vol]O rdered By: Benigno Kennedy on 08-27-2022 Creatinine [Mass/Vol] 0.7 mg/dL 0.6-1.3 [facility] Comment on above: ER/ESD physician is notified/shown all ISTAT results.Critical values may be confirmed by laboratory testing ifdeemed necessary by ER attending doctor. No Panel InformationOrdered By: Benigno Kennedy on 08-27-2022 POC Estimated GFR > 60 [facility] Comment on above: GFR estimated refere nce range: According to KDOQI guidelines, <60 ml/min/1.73m2 is sufficient to diagnose a patient with chronic kidney disease. POC Estimated GFR Non- Amer > 60 [facility] TSHon 06-22-2022 TSH 2.766 uIU/mL Normal 0.358-3.740 [facility] Comment on above: Performed By: #### T SH #### [facility] [address] [address] [address] Jackeline Thakkar VIT D 25-OH [facility] 2021 Vitamin D, 25-Hydroxy 50.3 ng/mL Normal 30.0-100.0 [facility] Comment on above: Result Comment: Shakira min D deficiency has been defined by the [place] of [employer] and an Endocrine Society practice guideline as a level of serum 25-OH vitamin D less than 20 ng/mL (1,2). The Endocrine Society went on to further define vitamin D insufficiency as a level between 21 and 29 ng/mL (2). 1. IOM ([place] of [employer]). 2010. Dietary reference intakes for calcium and D. [place]: The National Academies Press. 2. Lolly MF, [place], Kitty RAMACHANDRAN, et al. Evaluation, treatment, and prevention of vitamin D deficiency: an Endocrine Society clinical practice guideline. JCEM. 2010; 96(7):1911-30. Performed By: #### V ITADLC #### [facility] [address] [address] [address] Jackeline Thakkar PROF CHEM 8 (BAS METB)on Anion gap [Moles/Vol] 12.3 mmol/L Normal [facility] Comment on above: Performed By: #### B MP #### [facility] [address] [address] [address] Jackeline Thakkar Calcium [Mass/Vol] 9.0 mg/dL Normal 8.5-10.1 [facility] Comment on above: Performed By: #### B MP #### [facility] [address] [address] [address] Jackeline Thakkar Chloride [Moles/Vol] 106 mmol/L Normal 98-107 [facility] Comment on above: Performed By: #### B MP #### [facility] [address] [place] [address] Dr. Jackeline Thakkar CO2 [Moles/Vol] 26.5 mmol/L Normal 21.0-32.0 [facility] [place] Comment on above: Performed By: #### B MP #### [facility] [address] [place] [address] Dr. Jackeline Thakkar Creatinine [Mass/Vol] 0.83 mg/dL Normal 0.55-1.02 [facility] Comment on above: Performed By: #### B MP #### [facility] [address] [place] [address] Dr. Jackeline Thakkar EGFR-AF PALAUAN >60 Normal >=60 [facility] [place] Comment on above: Performed By: #### B MP #### [facility] [address] [place] [address] Dr. Jackeline Thakkar EGFR-NON AF PALAUAN >60 Normal >=60 [facility] Comment on above: Performed By: #### B MP #### [facility] [address] [address] [address] Jackeline Thakkar Glucose [Mass/Vol] 92 mg/dL Normal 74-106 [facility] Comment on above: Performed By: #### B MP #### [facility] [address] [place] [address] Dr. Jackeline Thakkar Potassium [Moles/Vol] 3.8 mmol/L Normal 3.5-5.1 [facility] Comment on above: Performed By: #### B MP #### [facility] [address] [place] [address] Dr. Jackeline Thakkar Sodium [Moles/Vol] 141 mmol/L Normal 136-145 [facility] Comment on above: Performed By: #### B MP #### [facility] [address] [address] [address] Jackeline Thakkar Urea nitrogen [Mass/Vol] 13.0 mg/dL Normal 7.0-18.0 [facility] Comment on above: Performed By: #### B MP #### [facility] [address] [address] [address] Jackeline Thakkar Urea nitrogen/Creatinine [Mass ratio] 15.7 mg/mg Normal [facility] Comment on above: Performed By: #### B MP #### [facility] [address] [address] [address] Jackeline Thakkar CNOVon 04-11-2018 CNOV Office Visit (PULMAV) KAREL MckeonTIANA ([id number]) 1945 [facility] Time Provider Department04/11/18 9:30 AM RENATA YADAV [...] comes for second opinion about her respiratory problemsShkendrick reports a chronic cough and dyspnea for [...] course of antibiotics. She wasalso seen by Tube Bender Dr. CARRASCO, I have reviewed his notes( [...] itShe is retired, lives with her in [place]. sHE used to work in [employer], School [employer]missions/[employer]. 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 [...] on Symbicort and MICHAELA via NEB / Katrin Correa Roflumilast start low dose, then increase to 500 mcg from next month -possible side effects discussedWe Can consider allergy testing in future if neededRTC In 3 months or sooner prnDecember is ok too-KAYY Jensenuring this patient visit I have spent approximately 30 minutes out of 60 incounseling regarding cardiovascular risk reduction, treatment options,medications and test results and coordinating care.Referring Provider: CHUCHO SARAVIA [[id number]]Allergies As of Date: 04/11/2018(No Known Allergies)Date Reviewed: 04/11/2018Reviewed by: Denice ([employer]) Zoila Rodriguez - Fully AssessedReason for Visit: New Patient [172] Cough [28] Shortness of Breath [227]Primary Visit Diagnosis:Chronic cough [R05] Other Visit Diagnoses:Chronic obstructive pulmonary disease, unspecified COPD type (HCC) [J44.9] Former smoker [Z87.891]Order(s):PULMI OTTONIEL FLEXHALER 180 mcg/actuation aepbInhale 1 Puff as instructed twice daily.Disp: 1 InhalerRfl: 3 SPIROMETRY WITH DILATOR IF OBSTRUCTED [1423106] Order #: [id number] FUTURE LUNG DIFFUSION CAPACITY (DLCO) [[id number]] Order #: [id number] FUTURE roflumilast (DALIRESP) 250 mcg tabTake 250 [...] on file.Follow-up and Disposition History RecordedEncounter Number: [id number] Status:Closed by RENATA YADAV MD on 04/11/18 [facility] Jhonny 04-11-2018 SIA Telephone ([facility]) TIANA BOYLE ([id number]) 1945 FDate Time Provider Department04/11/18 RENATA YADAV During your visit today, we recorded the following information about you:Kiesha Hairston, RN, RN 04/11/2018 3:38 PM SignedPt just seen in the office todayCalling to inform the prescriptions for Pulmicort and Roflumilast never made itto her PharmacyAsking if these can be RESENT pleaseVerified correct pharmacy is Mehran in [place] on [facility] needed pt's call back # [phone] Andrews Ma 04/11/2018 3:56 PM SignedJust completed [...] Status:Closed by RENATA YADAV MD on 04/12/18 [facility] Eugenia 04-11-2018 Protein HNO ID: [id number]: Renata Redvice: (none)Author Type: PhysicianType: Progress NotesFiled: 04/11/2018 11:13 [...] course ofantibiotics. She was also seen by Tube Bender Dr. CARRASCO, I havereviewed his notes( IGE [...] itShe is retired, lives with her in [place]. sHE used to work in [employer], taking/[employer]. 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 [facility] SR-CT CHEST W CON IMPORTon 0 12-29-2017 SR-CT CHEST W CON IMPORT Images were obtained outside of [facility] [id number] [facility] OT-XR CHEST 2 V IMPORTon OT-XR CHEST 2 V IMPORT Images were obtai donald outside of [facility] [id number] [facility] OT-XR CHEST 2 V IMPORTon OT-XR CHEST 2 V IMPORT Images were obtai donald outside of [facility] [id number] [facility] OT-XR CHEST 2 V IMPORTon OT-XR CHEST 2 V IMPORT Images were obtai donald outside of [facility] [id number] [facility] Vital Signs Date Time Vital Sign Value Performing Clinician Facility 03-31-2024 09:32-0400 Body height 165.1 cm [facility] 03-31-2024 09:32-0400 Body mass index (BMI) [Ratio] 30.9 kg/m2 [facility] 03-31-2024 09:32-0400 Body weight 84.42 kg [facility] 03-31-2024 09:32-0400 Diastolic blood pressure 73 mm[Hg] [facility] 03-31-2024 09:32-0400 Heart rate 52 /min [facility] 03-31-2024 09:32-0400 Respiratory rate 16 /min [facility] 03-31-2024 09:32-0400 Systolic blood pressure 147 mm[Hg] [facility] 01-14-2024 09:45-0400 Body height 165.1 cm DO Chucho Ball Work Phone: [facility] 01-14-2024 09:45-0400 Body mass index (BMI) [Ratio] 30.4 kg/m2 DO Chucho Ball Work Phone: [facility] 01-14-2024 09:45-0400 Body weight 82.8 kg DO Chucho Ball Work Phone: [facility] 01-14-2024 09:45-0400 Diastolic blood pressure 88 mm[Hg] DO Chucho Ball Work Phone: [facility] 01-14-2024 09:45-0400 Heart rate 67 /min DO Chucho Ball Work Phone: [facility] 01-14-2024 09:45-0400 Respiratory rate 20 /min DO Chucho Ball Work Phone: [facility] 01-14-2024 09:45-0400 Systolic blood pressure 157 mm[Hg] DO Chucho Ball Work Phone: [facility] 12-21-2023 10:46-0400 Body height 165.1 cm DO Chucho Ball Work Phone: [facility] 12-21-2023 10:46-0400 Body mass index (BMI) [Ratio] 30.4 kg/m2 DO Chucho Ball Work Phone: [facility] 12-21-2023 10:46-0400 Body weight 83 kg DO Chucho Ball Work Phone: [facility] 12-21-2023 10:46-0400 Diastolic blood pressure 83 mm[Hg] DO Chucho Ball Work Phone: [facility] 12-21-2023 10:46-0400 Heart rate 69 /min DO Chucho Ball Work Phone: [facility] 12-21-2023 10:46-0400 Respiratory rate 16 /min DO Chucho Ball Work Phone: [facility] 12-21-2023 10:46-0400 Systolic blood pressure 158 mm[Hg] DO Chucho Ball Work Phone: [facility] 11-03-2023 08:00-0500 Body height 165.1 cm [employer] Other [employer] [facility] Other 11-03-2023 08:00-0500 Body mass index (BMI) [Ratio] 30.45 kg/m2 [employer] Other [employer] [facility] Other 11-03-2023 08:00-0500 Body weight 83.01 kg [employer] Other [employer] [facility] Other 10-04-2023 13:30-0500 Body height 165.1 cm DO Chucho Ball Work Phone: [facility] 10-04-2023 13:30-0500 Body weight 83 kg DO Chucho Ball Work Phone: [facility] 10-04-2023 13:30-0500 Diastolic blood pressure 74 mm[Hg] DO Chucho Ball Work Phone: [facility] 10-04-2023 13:30-0500 Systolic blood pressure 130 mm[Hg] DO Chucho Ball Work Phone: [facility] 02-24-2023 11:50-0400 Diastolic blood pressure 81 mm[Hg] DO Chucho Ball Work Phone: [facility] 02-24-2023 11:50-0400 Heart rate 62 /min DO Chucho Ball Work Phone: [facility] 02-24-2023 11:50-0400 Respiratory rate 16 /min DO Chucho Ball Work Phone: [facility] 02-24-2023 11:50-0400 SaO2% (BldA) [Mass fraction] 95 % DO Chucho Ball Work Phone: [facility] 02-24-2023 11:50-0400 Systolic blood pressure 154 mm[Hg] DO Chucho Ball Work Phone: [facility] 02-24-2023 11:35-0400 Inhaled oxygen flow rate 1 L/min DO Chucho Ball Work Phone: [facility] 02-24-2023 10:54-0400 Body temperature 97 [degF] DO Chucho Ball Work Phone: [facility] 02-24-2023 08:22-0400 Body height 160.02 cm DO Chucho Ball Work Phone: [facility] 02-24-2023 08:22-0400 Body mass index (BMI) [Ratio] 32.9 kg/m2 DO Chucho Ball Work Phone: [facility] 02-24-2023 08:22-0400 Body weight 84.4 kg DO Chucho Ball Work Phone: [facility] 02-09-2023 10:00-0400 Body height 165.1 cm Barry Olexa [employer] Other 01-25-2023 14:45-0400 Body height 165.1 cm Barry Olexa [employer] Other 01-25-2023 14:45-0400 Body mass index (BMI) [Ratio] 30.78 kg/m2 Barry Olexa [employer] Other 01-25-2023 14:45-0400 Body weight 83.92 kg Barry Olexa [employer] Other 12-14-2022 11:00-0400 Body height 165.1 cm Chucho Ball [employer] Other 12-14-2022 11:00-0400 Body mass index (BMI) [Ratio] 30.82 kg/m2 Chucho Ball [employer] Other 12-14-2022 11:00-0400 Body weight 84.01 kg Chucho Ball [employer] Other 12-14-2022 11:00-0400 Diastolic blood pressure 84 mm[Hg] Chucho Ball Other [employer] Other 12-14-2022 11:00-0400 Respiratory rate 20 /min Chucho Ball Other [employer] Other 12-14-2022 11:00-0400 Systolic blood pressure 122 mm[Hg] Chucho Ball [employer] Other 10-29-2022 11:30-0500 Body height 165.1 cm Barry Valenzuela Other [employer] Other 10-29-2022 11:30-0500 Body mass index (BMI) [Ratio] 30.78 kg/m2 Barry Felter Other [employer] Other 10-29-2022 11:30-0500 Body weight 83.92 kg Barry Reeser Other [employer] Other 10-23-2022 10:40-0500 Body height 165.1 cm Benigno Kennedy Other [employer] Other 10-23-2022 10:40-0500 Body mass index (BMI) [Ratio] 30.78 kg/m2 Benigno Kennedy Other [employer] Other 10-23-2022 10:40-0500 Body weight 83.92 kg Benigno Kennedy Other [employer] Other 08-27-2022 07:00-0500 Body height 162.56 cm DO Chucho Ball Work Phone: [facility] 08-27-2022 07:00-0500 Body weight 81.64 kg DO Chucho Ball Work Phone: [facility] 08-18-2022 11:20-0500 Body height 165.1 cm Benigno Kennedy Other [employer] Other 03-11-2022 12:00-0400 Body height 165.1 cm Barry Valenzuela Other [employer] Other 03-11-2022 12:00-0400 Body mass index (BMI) [Ratio] 30.28 kg/m2 Barry Valenzuela Other [employer] Other 03-11-2022 12:00-0400 Body weight 82.56 kg Barry Valenzuela [employer] Other 02-17-2022 12:20-0400 Body height 165.1 cm Benigno Kennedy Other [employer] Other 02-17-2022 12:20-0400 Body mass index (BMI) [Ratio] 30.28 kg/m2 Benigno Kennedy Other [employer] Other 02-17-2022 12:20-0400 Body weight 82.56 kg Benigno Kennedy Other [employer] Other 01-05-2022 10:45-0400 Body height 165.1 cm Barry Felter Other [employer] Other 01-05-2022 10:45-0400 Body mass index (BMI) [Ratio] 31.28 kg/m2 Barry Felter Other [employer] Other 01-05-2022 10:45-0400 Body weight 85.28 kg Barry Felter Other [employer] Other 11-07-2021 09:20-0500 Body height 165.1 cm Benigno Kennedy Other [employer] Other 11-07-2021 09:20-0500 Body mass index (BMI) [Ratio] 31.45 kg/m2 Benigno Kennedy Other [employer] Other 11-07-2021 09:20-0500 Body weight 85.73 kg Benigno Kennedy Other [employer] Other 11-03-2021 11:15-0500 Body height 165.1 cm Barry Felter Other [employer] Other 11-03-2021 11:15-0500 Body mass index (BMI) [Ratio] 31.45 kg/m2 Barry Felter Other [employer] Other 11-03-2021 11:15-0500 Body weight 85.73 kg Barry Felter Other [employer] Other 09-18-2021 16:20-0500 Body height 165.1 cm Benigno Kennedy Other [employer] Other 09-18-2021 16:20-0500 Body mass index (BMI) [Ratio] 31.61 kg/m2 Benigno Kennedy Other [employer] Other 09-18-2021 16:20-0500 Body weight 86.18 kg Benigno Kennedy Other [employer] Other 09-18-2021 16:20-0500 Diastolic blood pressure 75 mm[Hg] Benigno Kennedy Other [employer] Other 09-18-2021 16:20-0500 Systolic blood pressure 129 mm[Hg] Benigno Marcia Other [employer] Other 09-11-2021 11:45-0500 Body height 165.1 cm Barry Felter Other [employer] Other 09-11-2021 11:45-0500 Body mass index (BMI) [Ratio] 31.61 kg/m2 Barry Felter Other [employer] Other 09-11-2021 11:45-0500 Body weight 86.18 kg Barry Felter Other [employer] Other 09-02-2021 15:00-0500 Body height 165.1 cm Barry Felter Other [employer] Other 09-02-2021 15:00-0500 Body mass index (BMI) [Ratio] 31.61 kg/m2 Barry Felter Other [employer] Other 09-02-2021 15:00-0500 Body weight 86.18 kg Barry Felter Other [employer] Other 08-14-2021 17:30-0500 Body height 165.1 cm Benigno Kennedy Other [employer] Other 08-14-2021 17:30-0500 Body mass index (BMI) [Ratio] 29.95 kg/m2 Benigno Kennedy Other [employer] Other 08-14-2021 17:30-0500 Body weight 81.65 kg Benigno Kennedy Other [employer] Other Encounters Encounter Date Encounter Type Care Provider Facility Start: 05-15-2024 End: 05-15-2024 ambulatory DO Chucho Ball Work Phone: [facility] Work Phone: Start: 05-15-2024 End: 05-15-2024 Patient encounter procedure DO Chucho Ball Work Phone: [facility] Work Phone: Start: 05-08-2024 End: 05-08-2024 ambulatory DO Chucho Ball Work Phone: [facility] Work Phone: Start: 05-08-2024 End: 05-08-2024 Patient encounter procedure DO Chucho Ball Work Phone: [facility] Work Phone: Start: 04-12-2024 End: 04-12-2024 ambulatory DO Chucho Ball Work Phone: [facility] Work Phone: Start: 04-12-2024 End: 04-12-2024 Patient encounter procedure [facility] Work Phone: Start: 04-10-2024 End: 04-10-2024 ambulatory [facility] Work Phone: Start: 04-10-2024 End: 04-10-2024 Patient encounter procedure [facility] Work Phone: Start: 03-31-2024 End: 03-31-2024 ambulatory [facility] Work Phone: Start: 03-31-2024 End: 03-31-2024 Patient encounter procedure [facility] Work Phone: Start: 03-16-2024 End: 03-16-2024 ambulatory AMISHA MUNOZ Not Available Start: 03-13-2024 End: 03-13-2024 ambulatory [facility] Work Phone: Start: 03-13-2024 End: 03-13-2024 Patient encounter procedure [facility] Work Phone: Start: 02-28-2024 End: 02-28-2024 ambulatory [facility] Work Phone: Start: 02-28-2024 End: 02-28-2024 Patient encounter procedure [facility] Work Phone: Start: 02-10-2024 End: 02-10-2024 Patient encounter procedure [facility] Work Phone: Start: 01-31-2024 Non-patient / Non-visit [facility] Work Phone: Start: 01-14-2024 End: 01-14-2024 ambulatory DO Chucho Ball Work Phone: [facility] Work Phone: Start: 01-14-2024 End: 01-14-2024 Patient encounter procedure DO Chucho Ball Work Phone: [facility] Work Phone: Start: 01-12-2024 End: 01-12-2024 ambulatory DO Chucho Ball Work Phone: [facility] Work Phone: Start: 01-12-2024 End: 01-12-2024 Patient encounter procedure DO Chucho Ball Work Phone: [facility] Work Phone: Start: 01-10-2024 End: 01-10-2024 ambulatory ESTHER PALMER Not Available Start: 01-05-2024 End: 01-05-2024 ambulatory DO Chucho Ball Work Phone: [facility] Work Phone: Start: 01-05-2024 End: 01-05-2024 Patient encounter procedure DO Chucho Ball Work Phone: [facility] Work Phone: Start: 01-05-2024 Non-patient / Non-visit DO Abhishek Saravia Work Phone: [facility] Work Phone: Start: 01-04-2024 End: 01-04-2024 ambulatory AMISHA WISEMIOELIZABETH Not Available Start: 12-21-2023 End: 12-21-2023 ambulatory DO Chucho Ball Work Phone: [facility] Work Phone: Start: 12-21-2023 End: 12-21-2023 Patient encounter procedure DO Chucho Ball Work Phone: [facility] Work Phone: Start: 12-13-2023 End: 12-13-2023 ambulatory DO Chucho Ball Work Phone: [facility] Work Phone: Start: 12-13-2023 End: 12-13-2023 Patient encounter procedure DO Chucho Ball Work Phone: [facility] Work Phone: Start: 12-09-2023 End: 12-09-2023 ambulatory DO Chucho Ball Work Phone: [facility] Work Phone: Start: 12-09-2023 End: 12-09-2023 Patient encounter procedure DO Chucho Ball Work Phone: [facility] Work Phone: Start: 12-01-2023 End: 12-01-2023 Patient encounter procedure DO Chucho Saravia Work Phone: [facility] Work Phone: Start: 12-01-2023 Non-patient / Non-visit DO Abhishek Saravia Work Phone: [facility] Work Phone: Start: 11-25-2023 End: 11-25-2023 Patient encounter procedure DO Chucho Saravia Work Phone: [facility] Work Phone: Start: 11-11-2023 Non-patient / Non-visit DO Abhishek Saravia Work Phone: [facility] Work Phone: Start: 11-09-2023 End: 11-09-2023 ambulatory Chucho Saravia Other [employer] Other Start: 11-09-2023 Telephone encounter Chucho Saravia [facility] Start: 11-03-2023 Office outpatient vi sit 25 minutes Coy Cassidy II [facility] Start: 11-03-2023 End: 11-03-2023 Patient encounter procedure DO Chucho Ball Work Phone: [facility] Start: 11-03-2023 End: 11-03-2023 ambulatory DO Chucho Ball Work Phone: [facility] Work Phone: Start: 10-11-2023 End: 10-11-2023 ambulatory Chucho Ball Other [employer] Other Start: 10-11-2023 Telephone encounter Chucho SALGADO [facility] Start: 10-04-2023 End: 10-04-2023 Patient encounter procedure DO Chucho Saravia Work Phone: [facility] Work Phone: Start: 09-24-2023 End: 09-24-2023 ambulatory AMISHA MUNOZ Not Available Start: 07-13-2023 Office outpatient vi sit 15 minutes Barry Patel [facility] Start: 07-13-2023 End: 07-13-2023 Patient encounter procedure DO Chucho Saravia Work Phone: [facility] [place] [facility] Start: 07-13-2023 End: 07-13-2023 ambulatory DO Chucho Saravia Work Phone: [facility] Work Phone: Start: 07-09-2023 End: 07-09-2023 ambulatory Chucho Saravia Other [employer] Other Start: 07-09-2023 Telephone encounter Chucho SALGADO [facility] Start: 07-08-2023 End: 07-08-2023 Patient encounter procedure DO Chucho Saravia Work Phone: [facility] Work Phone: Start: 07-08-2023 End: 07-08-2023 ambulatory DO Chucho Saravia Work Phone: [facility] Work Phone: Start: 07-06-2023 End: 07-06-2023 ambulatory Barry Valenzuela Other [employer] Other Start: 07-06-2023 Office outpatient vi sit 25 minutes Barry Valenzuela [facility] Start: 07-06-2023 Telephone encounter Barry SALGADO [facility] Start: 06-25-2023 End: 06-25-2023 ambulatory Barry Patel Facility:[facility] Start: 06-25-2023 Registered Recurring DO Benjam in Ball Work Phone: [facility] Start: 06-08-2023 Office outpatient vi sit 15 minutes Barry Patel [facility] Start: 06-08-2023 End: 06-08-2023 Patient encounter procedure DO Chucho Ball Work Phone: [facility] [place] [facility] Start: 06-08-2023 End: 06-08-2023 ambulatory DO Chucho Ball Work Phone: [facility] Work Phone: Start: 06-07-2023 Registered Recurring DO Benjam in Ball Work Phone: [facility] Start: 05-18-2023 End: 05-18-2023 ambulatory Chucho Ball Other [employer] Other Start: 05-18-2023 Telephone encounter Chucho Saravia [facility] Start: 05-14-2023 End: 05-14-2023 ambulatory Chucho Ball Other [employer] Other Start: 05-14-2023 Telephone encounter Chucho Saravia [facility] Start: 04-12-2023 Postop follow up vis it related to original px Barry Patel [facility] Start: 04-12-2023 End: 04-12-2023 ambulatory DO Chucho Ball Work Phone: [facility] Work Phone: Start: 04-12-2023 End: 04-12-2023 Patient encounter procedure DO Chucho Ball Work Phone: [facility] Start: 03-08-2023 End: 03-08-2023 Patient encounter procedure DO Chucho Ball Work Phone: [facility] [place] [facility] Start: 03-02-2023 End: 03-02-2023 ambulatory Chucho Ball Other [employer] Other Start: 03-02-2023 Telephone encounter Chucho Saravia [facility] Start: 02-26-2023 End: 02-26-2023 ambulatory Chucho Saravia Other [employer] Other Start: 02-26-2023 Office outpatient vi sit 15 minutes Chucho Saravia [facility] Start: 02-26-2023 Telephone encounter Chucho SALGADO [facility] Start: 02-25-2023 End: 02-25-2023 ambulatory Barry Olexa Other [employer] Other Start: 02-25-2023 Telephone encounter Barry Vegaxa [facility] Start: 02-24-2023 End: 02-24-2023 Admission to same day surgery center DO Chucho Ball Work Phone: [facility] [place] Start: 02-24-2023 End: 02-24-2023 ambulatory DO Chucho Saravia Work Phone: [facility] Work Phone: Start: 02-23-2023 End: 02-23-2023 ambulatory Barry Olexa Other [employer] Other Start: 02-23-2023 Telephone encounter Barry Vegaxa [facility] Start: 02-12-2023 End: 02-12-2023 Patient encounter procedure DO Chucho Saravia Work Phone: [facility]-Pre-Surgical Testing Work Phone: Start: 02-09-2023 End: 02-09-2023 ambulatory Barry Olexa Other [employer] Other Start: 02-09-2023 Encounter for other preprocedural examination Barry Vegaxa [facility] Start: 02-09-2023 Office outpatient vi sit 25 minutes Barry Olexa [facility] Start: 02-05-2023 End: 02-05-2023 ambulatory DO Chucho Ball Work Phone: [facility] Work Phone: Start: 02-05-2023 End: 02-05-2023 Patient encounter procedure DO Chucho Ball Work Phone: [facility]MRI [address] Work Phone: Start: 02-01-2023 End: 02-01-2023 ambulatory aBrry Patel Other [employer] Other Start: 02-01-2023 Telephone encounter Barry Olexa [facility] Start: 01-25-2023 Office outpatient vi sit 25 minutes Barry Olexa [facility] Start: 01-25-2023 End: 01-25-2023 ambulatory DO Chucho Saravia Work Phone: [facility] Work Phone: Start: 01-25-2023 End: 01-25-2023 Patient encounter procedure DO Chucho Saravia Work Phone: [facility] Start: 01-18-2023 End: 01-18-2023 ambulatory Chucho Saravia Other [employer] Other Start: 01-18-2023 Telephone encounter Chucho Saravia [facility] Start: 12-24-2022 End: 12-24-2022 ambulatory Coy Cassidy II Other [employer] Other Start: 12-24-2022 Telephone encounter Coy Cassidy II [facility] Start: 12-14-2022 End: 12-14-2022 ambulatory Chucho Saravia Other [employer] Other Start: 12-14-2022 Office outpatient vi sit 15 minutes Chucho Saravia [facility] Start: 12-07-2022 End: 12-07-[address] CHUCHO SARAVIA Facility: Start: 12-03-2022 End: 12-03-2022 ambulatory Coy Cassidy II Other [employer] Other Start: 12-03-2022 Telephone encounter Coy Cassidy II [facility] Start: 11-30-2022 End: 11-30-2022 ambulatory Chucho Saravia Other [employer] Other Start: 11-30-2022 Telephone encounter Chucho Saravia [facility] Start: 11-26-2022 End: 11-26-2022 Patient encounter procedure DO Chucho Saravia Work Phone: [facility] Start: 11-20-2022 End: 11-20-2022 ambulatory Barry Valenzuela Other [employer] Other Start: 11-20-2022 Telephone encounter Barry SALGADO [facility] Start: 11-19-2022 End: 11-19-2022 ambulatory Barry Valenzuela Other [employer] Other Start: 11-19-2022 Office outpatient vi sit 15 minutes Barry Valenzuela [facility] Start: 11-18-2022 End: 11-18-2022 ambulatory Chucho Saravia Other [employer] Other Start: 11-18-2022 Telephone encounter Chucho Saravia [facility] Start: 11-17-2022 End: 11-18-[address] NONE LISTED REQUEST Facility: Start: 11-17-2022 Nursing evaluation o f patient and report Chucho Saravia [facility] Start: 11-09-2022 (Procedure) Short Barry Valenzuela [facility] Start: 11-09-2022 End: 11-09-2022 ambulatory Barry Valenzuela Other Antenna Other Start: 10-29-2022 Office outpatient vi sit 25 minutes Barry Valenzuela [facility] Start: 10-29-2022 Telephone encounter Baryr SALGADO [facility] Start: 10-29-2022 End: 10-29-2022 ambulatory DO Chucho Ball Work Phone: [facility] Work Phone: Start: 10-29-2022 End: 10-29-2022 Patient encounter procedure DO Chucho Saravia Work Phone: [facility] Start: 10-27-2022 End: 10-27-2022 ambulatory Radha Kennedy Other Antenna Other Start: 10-27-2022 Telephone encounter Radha Kennedy [facility] Start: 10-23-2022 End: 10-23-2022 ambulatory Benigno Kennedy Other Antenna Other Start: 10-23-2022 Office outpatient vi sit 15 minutes Benigno Kennedy [facility] Start: 10-22-2022 End: 10-22-2022 ambulatory Chucho Saravia Other Antenna Other Start: 10-22-2022 Telephone encounter Chucho Saravia [facility] Start: 08-27-2022 End: 08-27-2022 ambulatory DO Chucho Saravia Work Phone: [facility] Work Phone: Start: 08-27-2022 End: 08-27-2022 Patient encounter procedure DO Chucho Saravia Work Phone: [facility] Start: 08-18-2022 End: 08-18-2022 ambulatory Benigno Kennedy Other [facility] Other Start: 08-18-2022 Office outpatient vi sit 15 minutes Benigno Kennedy [facility] Start: 08-12-2022 End: 08-12-2022 ambulatory DO Chucho Ball Work Phone: [facility] Work Phone: Start: 08-12-2022 End: 08-12-2022 Patient encounter procedure DO Chucho Saravia Work Phone: [facility] Start: 08-04-2022 End: 08-04-2022 ambulatory Barry Negritadave Other Antenna Other Start: 08-04-2022 Office outpatient vi sit 25 minutes Barry Valenzuela [facility] Start: 07-07-2022 End: 07-07-2022 ambulatory DO Chucho Saravia Work Phone: [facility] Work Phone: Start: 07-07-2022 End: 07-07-2022 Patient encounter procedure DO Chucho Saravia Work Phone: [facility] Start: 06-22-2022 Adult health examination Jose Angel Saravia Other Antenna Other Start: 06-22-2022 End: 06-23-[address] CHUCHO SARAVIA Facility:[facility] Start: 05-26-2022 End: 05-26-[address] CHUCHO SARAVIA Facility:[facility] Start: 04-28-2022 End: 04-29-[address] CHUCHO SARAVIA Facility:[facility] Start: 04-16-2022 End: 04-17-[address] CHUCHO SARAVIA Facility:[facility] Start: 04-15-2022 End: 04-15-[address] CHUCHO SARAVIA Facility:[facility] Start: 03-11-2022 End: 03-11-2022 ambulatory Barry Valenzuela Other Antenna Other Start: 03-11-2022 Office outpatient vi sit 25 minutes Barry Valenzuela [facility] Start: 03-04-2022 (Procedure) Short Barry Valenzuela [facility] Start: 03-04-2022 End: 03-04-2022 ambulatory Barry Valenzuela Other Antenna Other Start: 02-17-2022 End: 02-17-2022 ambulatory Benigno Kennedy Other Antenna Other Start: 02-17-2022 Office outpatient vi sit 15 minutes Benigno Kennedy [facility] Start: 01-19-2022 End: 01-20-[address] CHUCHO SARAVIA Facility:[facility] Start: 01-05-2022 End: 01-05-2022 ambulatory Barry Valenzuela Other Antenna Other Start: 01-05-2022 Office outpatient vi sit 25 minutes Barry Valenzuela [facility] Start: 12-03-2021 End: 12-03-2021 ambulatory Barry Valenzuela Other Antenna Other Start: 12-03-2021 Office outpatient vi sit 25 minutes Barry Valenzuela [facility] Start: 11-28-2021 End: 11-28-2021 ambulatory Barry Valenzuela Other Antenna Other Start: 11-28-2021 Telephone encounter [facility] Start: 11-07-2021 End: 11-07-2021 ambulatory Benigno Kennedy Other Antenna Other Start: 11-07-2021 Office outpatient vi sit 15 minutes Benigno Kennedy [facility] Start: 11-03-2021 End: 11-03-2021 ambulatory Barry Valenzuela Other Antenna Other Start: 11-03-2021 Office outpatient vi sit 25 minutes Barry Valenzuela [facility] Start: 10-14-2021 (Procedure) Short Barry Valenzuela [facility] Start: 10-14-2021 End: 10-14-2021 ambulatory Barry Valenzuela Other Antenna Other Start: 10-06-2021 End: 10-06-2021 ambulatory Barry Valenzuela Other Antenna Other Start: 10-06-2021 Office outpatient vi sit 25 minutes Barry Valenzuela [facility] Start: 09-18-2021 End: 09-18-2021 ambulatory Benigno Kennedy Other Antenna Other Start: 09-18-2021 Office outpatient vi sit 15 minutes Benigno Kennedy [facility] Start: 09-11-2021 End: 09-11-2021 ambulatory Barry Reesdave Other Antenna Other Start: 09-11-2021 Office outpatient vi sit 25 minutes Barry Valenzuela [facility] Start: 09-02-2021 End: 09-02-2021 ambulatory Barry Valenzuela Other Antenna Other Start: 09-02-2021 Office outpatient vi sit 25 minutes Barry Valenzuela [facility] Start: 08-26-2021 (Procedure) Short Barry Valenzuela [facility] Start: 08-26-2021 End: 08-26-2021 ambulatory Barry Valenzuela Other Antenna Other Start: 08-25-2021 End: 08-25-2021 ambulatory Benigno Kennedy Other Antenna Other Start: 08-25-2021 Telephone encounter Benigno Kennedy [facility] Start: 08-15-2021 End: 08-15-2021 ambulatory Barry Valenzuela Other Antenna Other Start: 08-15-2021 Telephone encounter Barry Valenzuela [facility] Start: 08-14-2021 End: 08-14-2021 ambulatory Benigno Kennedy Other Antenna Other Start: 08-14-2021 Office outpatient vi sit 15 minutes Benigno Kennedy [facility] Start: 09-05-2019 Pre-procedure evalua tion check Chucho Saravia Other Antenna Other Start: 06-06-2018 Patient encounter CIRA BENDER Fac ility:[id number] Start: 06-06-2018 Patient encounter Facil [id number] Start: 04-11-2018 End: 04-13-2018 Patient encounter RENATA LEIF [facility] Start: 04-11-2018 End: 04-11-2018 Patient encounter RENATA LEIF [facility] Start: 04-11-2018 End: 04-13-2018 Patient encounter RENATA LEIF [facility] Procedures Date Procedure Procedure Detail Performing Clinician [...] hip DO Chucho Ball Work Phone: Start: 02-02-2023 Plain X-ray of right hip DO Chucho Ball Work Phone: Start: 08-27-2022 MRI of lumbar spine with contrast DO Chucho Saravia Work Phone: Start: 08-12-2022 X-ray of lumbar spin e, four views DO Chucho Saravia Work Phone: Start: 07-07-2022 Screening mammograph y of bilateral breasts DO Chucho Saravia Work Phone: Start: 01-25-2018 Screening for osteoporosis [...] Activity Detail Author Start: 04-10-2024 Patient referral [facility] Work Phone: Start: 02-24-2023 End: 02-24-2023 [facility] Start: 02-24-2023 Referral to occupati onal therapist [facility] Start: 02-24-2023 [facility] Start: 01-25-2023 Plain X-ray of left shoulder XR shoulder LT min 2V* [facility] Comprehensive metabo lic 2000 panel - Serum or Plasma [facility] Patient referral [facility] Work Phone: [facility] Immunizations Immunization Date Immunization Notes Care Provider Kam moses 06-22-2023 influenza virus vaccine, unspecified formulation DO Chucho Saravia Work Phone: [facility] 06-22-2023 influenza, high dose seasonal, preservative-free Barry Valenzuela Other [facility] Other 06-16-2022 influenza virus vaccine, split virus (incl. purified surface antigen) Chucho Saravia Other [facility] Other 06-16-2022 influenza virus vaccine, unspecified formulation DO Chucho Saravia Work Phone: [facility] 12-16-2020 COVID-19 mRNA-1273 (Moderna) DO Chucho Saravia Work Phone: [facility] 11-18-2020 COVID-19 mRNA-1273 (Moderna) DO Chucho Saravia Work Phone: [facility] 06-02-2017 influenza virus vaccine, split virus (incl. purified surface antigen) Chucho Saravia Other [facility] Other 06-02-2017 influenza virus vaccine, unspecified formulation DO Chucho Saravia Work Phone: [facility] 02-10-2017 pneumococcal polysaccharide vaccine, 23 valent Chucho Saravia Other [facility] 05-01-2015 pneumococcal conjuga te vaccine, 13 valent Chucho Saravia Other [facility] 05-01-2015 pneumococcal Conjuga te, unspecified formulation; Translations: [Need for prophylactic vaccination against Streptococcus pneumoniae (pneumococcus)] Chucho Saravia Other [facility] Other 08-01-2014 influenza virus vaccine, split virus (incl. purified surface antigen) Chucho Saravia Other [facility] Other 08-01-2014 influenza virus vaccine, unspecified formulation DO Chucho Saravia Work Phone: [facility] 07-05-2013 tetanus and diphther ia toxoids, adsorbed, preservative free, for adult use (5 Lf of tetanus toxoid and 2 Lf of diphtheria toxoid) Chucho Saravia Other [facility] 07-05-2012 tetanus and diphther ia toxoids, adsorbed, preservative free, for adult use (5 Lf of tetanus toxoid and 2 Lf of diphtheria toxoid) Chucho Manjit Other [facility] 07-01-2011 tetanus and diphther ia toxoids, adsorbed, preservative free, for adult use (5 Lf of tetanus toxoid and 2 Lf of diphtheria toxoid) Chucho Manjit Other [facility] 08-06-2004 pneumococcal polysaccharide vaccine, 23 valent Chucho Saravia Other [facility] Payers Date Payer Category Payer Medicare [id number] 1957 Self-pay [id number] 1957 Unknown [id number] 1945 Unknown [id number] .[id number] 1947 Unknown [id number] .[id number] 1947 Unknown [id number] 2.16840.1.057995.3.579.2.593 1947 Unknown [id number] 2.16.840.1.585060.3.579.2.59 1947 Unknown [id number] 2.16840.1.796417.3.579.2.593 1947 Unknown [id number] 2.16840.1.822828.3.579.2.59 1947 Unknown [id number] 2.16.840.1.941583.3.579.2.593 1947 Unknown [id number] 2.16.840.1.754274.3.579.2.1259 1947 Unknown [id number] 2.16.840.1.676648.3.579.2.1259 1947 Unknown [id number] 2.16.840.1.010239.3.579.2.1259 1945 Unknown [id number] 2.16.840.1.147709.3.579.2.1259 Medicare [id number] Unknown [employer] C o [id number] Unknown [id number] 2.16.840.1.851331.3.579.2.593 Unknown [id number] 2.16.840.1.703300.3.579.2.531 Unknown [id number] 2.16.840.1.004175.3.579.2.531 Unknown [id number] 2.16.840.1.884842.3.579.2.531 Unknown [id number] 2.16.840.1.561587.3.579.2.531 Unknown [id number] 2.16.840.1.475526.3.579.2.531 Unknown [id number] 2.16.840.1.504227.3.579.2.531 Social History Date Type Detail Facility Unknown if ever smoked Antenna Other Sex Assigned At Sex Assigned At Bir th Antenna Other Start: 03-05-2021 End: 04-10-2024 Tobacco smoking status NHIS Ex-smoker (finding) [facility] Start: 1945 Sex Assigned At Female [facility] Medical Equipment Procedure Code Equipment Code Equipment Origin al Text Equipment Identifier Dates Fusion, spine, lumbar, XLIF CANCELLOUS 15CC CRUSHED FDA Start: 03-05-2021 Fusion, spine, lumbar, XLIF Orthopaedic bone screw, non-bioabsorbable, non-sterile [id number] FDA Start: 03-05-2021 Fusion, spine, lumbar, XLIF Orthopaedic instrument surgical connector [id number] FDA Start: 03-05-2021 Fusion, spine, lumbar, XLIF Bone-screw internal spinal fixation system, non-sterile [id number] FDA Start: 03-05-2021 Fusion, spine, lumbar, XLIF Spinal fusion graft kit [id number] FDA Start: 03-05-2021 Fusion, spine, lumbar, XLIF Polymeric spinal fusion cage, sterile ()[id number] FDA Start: 03-05-2021 Fusion, spine, lumbar, XLIF Bone-screw internal spinal fixation system, non-sterile [id number] FDA Start: 03-05-2021 Fusion, spine, lumbar, XLIF Orthopaedic bone screw, non-bioabsorbable, non-sterile [id number] FDA Start: 03-05-2021 Fusion, spine, lumbar, XLIF [...] 03-05-2021 Arthroscopy, shoulder Tendon/ligament bone anchor, non-bioabsorbable ()[id number] FDA Start: 08-01-2019 Arthroplasty, shoulder, total Total reverse shoulder prosthesis ()[id number] [id number])[id number] 69 FDA Start: 02-24-2023 Arthroplasty, shoulder, total Total reverse shoulder prosthesis ()[id number] [id number] FDA Start: 02-24-2023 Arthroplasty, shoulder, total Total reverse shoulder prosthesis ()[id number]( [id number])22.019 30 FDA Start: 02-24-2023 Arthroplasty, shoulder, total Total reverse shoulder prosthesis [id number]( 17)[id number])22.024 00 FDA Start: 02-24-2023 Arthroplasty, shoulder, total Total reverse shoulder prosthesis [id number]( 17)[id number])[id number] 66 FDA Start: 02-24-2023 Arthroplasty, shoulder, total Total reverse shoulder prosthesis [id number]( 17)[id number](10)22.024 85 FDA Start: 02-24-2023 Arthroplasty, shoulder, total Total reverse shoulder prosthesis [id number]( [id number] 59 FDA Start: 02-24-2023 Arthroplasty, shoulder, total Total reverse shoulder prosthesis [id number] [id number] FDA Start: 02-24-2023 Arthroplasty, shoulder, total Total reverse shoulder prosthesis [id number]( [id number] FDA Start: 02-24-2023 Arthroplasty, shoulder, total Total reverse shoulder prosthesis ([id number] [id number] FDA Start: 02-24-2023 Goals Date Patient Goal Desired Activity /State Clinical Notes 08-14-2021 to 11-09-2023 Note Date & Type Note Facility 11-09-2023 Evaluation note Encounter Date Diagnosis Assessment Notes Oct, LALITA (generalized anxiety disorder) (ICD-10 - F41.1) Antenna Other 02-07-2024 Evaluation note* Encounter Date Diagnosis [...] would like to see the someone in [place] or [place] for another set of eyes to determine if there is anything from a surgical standpoint I can help with her significant pain I am happy to make that referral as well. I again stressed that I do not feel that there is anything from a surgical standpoint that I will be able to offer her. [facility]na Other 10-17-2023 Evaluation note* Encounter Date Diagnosis [...] Pain in left hand (ICD-10 - M79.642) [facility] Other 10-10-2023 Evaluation note* Encounter Date Diagnosis Assessment Notes Treatment Notes Treatment Clinical Notes Jun, Lumbar spondylosis (ICD-10 - M47.816) [facility] Other 10-10-2023 Evaluation note* Encounter Date Diagnosis [...] educated regarding the risks and benefits of long term acute care registered nurse opioid use. She understands the associated risks [...] note writ ten by Henry Salter MA, Sql Report Developer. Edited and approved by Dr. Barry Valenzuela MD. [facility]na Other 09-12-2023 Evaluation note* Encounter Date Diagnosis [...] slowly progress increased activity as pain allows. Antenna Other 08-18-2023 Evaluation note* Encounter Date Diagnosis Assessment Notes Treatment Notes Treatment Clinical Notes Apr, Age-related osteoporosis without current pathological fracture (ICD-10 - M81.0) [facility] Other 06-06-2023 Evaluation note* Encounter Date Diagnosis Assessment Notes Treatment Notes Treatment Clinical Notes Feb, Acute bronchitis due to other specified organisms (ICD-10 - J20.8) [facility] Other 06-02-2023 Evaluation note* Encounter Date Diagnosis [...] Increase use of MICHAELA and add mucolytic [facility]tenna Other 05-30-2023 Evaluation note* Encounter Date Diagnosis Assessment Notes Treatment Notes Treatment Clinical Notes 30 May, 2023 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) [facility] Other 05-16-2023 Evaluation note* Encounter Date Diagnosis [...] loosening, loss of motion, hematoma, wound problems, assisted pain and stiffness are well known problems [...] M87.022) January, Pre-op exam (ICD-10 - Z01.818) [facility] Other 05-08-2023 Evaluation note* Encounter Date Diagnosis Assessment Notes Treatment Notes Treatment Clinical Notes January, Internal derangement of left shoulder (ICD-10 - M24.812) [facility] Other 05-01-2023 Evaluation note* Encounter Date Diagnosis [...] derangement of left shoulder (ICD-10 - M24.812) [facility] Other 03-20-2023 Evaluation note* Encounter Date Diagnosis [...] Nov, Other chronic pain (ICD-10 - G89.29) [facility] Other 02-24-2023 Evaluation note* Encounter Date Diagnosis Assessment Notes Treatment Notes Treatment Clinical Notes Oct, Mucopurulent chronic bronchitis (ICD-10 - J41.1) [facility]na Other 02-23-2023 Evaluation note* Encounter Date Diagnosis [...] educated regarding the risks and benefits of assisted opioid use. She understands the associated risks [...] note writ ten by Shahla Lopez LPN, Sql Report Developer. Edited and approved by Dr. Barry Valenzuela MD. [facility] Other 02-22-2023 Evaluation note* Encounter Date Diagnosis Assessment Notes Treatment Notes Treatment Clinical Notes Oct, Mucopurulent chronic bronchitis (ICD-10 - J41.1) [facility]na Other 02-21-2023 Evaluation note* Encounter Date Diagnosis Assessment Notes Treatment Notes Treatment Clinical Notes Oct, Pernicious anemia (ICD-10 - D51.0) [facility] Other 02-02-2023 Evaluation note* Encounter Date Diagnosis [...] educated regarding the risks and benefits of assisted opioid use. She understands the associated risks with this medication and agrees that it provides reasonable benefit in regards to her pain control and level of function. This medication was refilled today. Oct, Other Above note writ ten by Shahla Lopez LPN, Sql Report Developer. Edited and approved by Dr. Barry Valenzuela MD. [facility]tenna Other 01-27-2023 Evaluation note* Encounter Date Diagnosis [...] with another xray. She can see my BULK GAS SPECIALIST. 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 She understands the associated risks with this medication and agrees that it provides reasonable benefit in regards to her pain control and level of function. This medication was refilled today. 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 Edited and approved by Dr. Barry Valenzuela MD. [facility]tenna Other 06-15-2022 Evaluation note* Encounter Date Diagnosis [...] educated regarding the risks and benefits of long term acute care registered nurse opioid use. She understands the associated risks with this medication and agrees that it provides reasonable benefit in regards to her pain control and level of function. This medication was refilled today. Feb, Other spondylosis with radiculopathy, lumbar region (ICD-10 - M47.26) Feb, Trochanteric bursitis of left hip (ICD-10 - M70.62) Feb, Other Above note writ ten by Shahla Lopez LPN, Sql Report Developer. Edited and approved by Dr. Barry Valenzuela MD. 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 Edited and approved by Dr. Barry Valenzuela MD. [facility]tenna Other 03-09-2022 Evaluation note* Encounter Date Diagnosis [...] note writ ten by Henry Salter CMA, Sql Report Developer. Edited and approved by Dr. Barry Valenzuela MD. [facility]tenna Other 03-04-2022 Evaluation note* Encounter Date Diagnosis Assessment Notes Treatment Notes Treatment Clinical Notes Nov, Tear of gluteus medius tendon (ICD-10 - S76.019A) Antenna Other 02-11-2022 Evaluation note* Encounter Date Diagnosis [...] Oct, Left hip pain (ICD-10 - M25.552) [facility]na Other 02-07-2022 Evaluation note* Encounter Date Diagnosis [...] considering a referral to an orthopedic sports development officer for her hip should this upcoming injection not provide considerable relief. Oct, Other spondylosis with radiculopathy, lumbar region (ICD-10 - M47.26) Patient notes upcoming appointment with neurosurgery. Oct, Other Above note writ ten by Shahla Lopez LPN, Sql Report Developer. Edited and approved by Dr. Barry Valenzuela MD. [facility]tenna Other 01-10-2022 Evaluation note* Encounter Date Diagnosis [...] could consider referral to a orthopedic sports development officer for her hip. Sep, Other chronic pain (ICD-10 - G89.29) Sep, Other Above note writ ten by Henry Salter CMA, Sql Report Developer. Edited and approved by Dr. Barry Valenzuela MD. [facility]tenna Other 12-23-2021 Evaluation note* Encounter Date Diagnosis [...] Aug, Left hip pain (ICD-10 - M25.552) Antenna Other 12-16-2021 Evaluation note* Encounter Date Diagnosis [...] could consider referral to a orthopedic sports development officer. Aug, Other chronic pain (ICD-10 - G89.29) Aug, Other Above note writ ten by Henry Salter CMA, Sql Report Developer. Edited and approved by Dr. Barry Valenzuela MD. [facility]tenna Other 12-07-2021 Evaluation note* Encounter Date Diagnosis [...] Above note writ ten by Tsering Reich [facility], Sql Report Developer. Edited and approved by Dr. Barry Valenzuela MD. [facility]tenna Other 11-29-2021 Evaluation note* Encounter Date Diagnosis Assessment Notes Treatment Notes Treatment Clinical Notes Jul, Stenosis, spinal, lumbar (ICD-10 - M48.06) Antenna Other 11-19-2021 Evaluation note* Encounter Date Diagnosis Assessment Notes Treatment Notes Treatment Clinical Notes Jul, Left hip pain (ICD-10 - M25.552) [facility] Other 11-18-2021 Evaluation note* Encounter Date Diagnosis [...] suspect this is the source of pathology [facility] Other evaluation noteNo Information[place] Other Evaluation noteNo assessment information available [facility] Work Phone: Evaluation note[place]Crown in [place] Other Evaluation note* Diagnosis Onset Date Resolution Status Chronic pain acute Inflammation of right sacroiliac joint acute Trochanteric bursitis acute Chronic pain acute DJD (degenerative joint disease), lumbosacral acute Inflammation of right sacroiliac joint acute [facility] Work Phone: Evaluation note* Diagnosis Onset Date Resolution Status Chronic pain acute Inflammation of right sacroiliac joint acute Trochanteric bursitis acute Chronic pain acute DJD (degenerative joint disease), lumbosacral acute Inflammation of right sacroiliac joint acute Chronic obstructive pulmonar y disease with (acute) exacerbation acute Chronic obstructive pulmonar y disease with (acute) lower respiratory infection acute [facility] Work Phone: Evaluation note* Diagnosis Onset Date Resolution Status Inflammation of right sacroiliac joint acute Trochanteric bursitis acute DJD (degenerative joint disease), lumbosacral acute Inflammation of right sacroiliac joint acute Chronic bronchitis acute Hypothyroid acute Lumbar spondylosis acute BRET (obstructive sleep apnea) acute [facility] Work Phone: Evaluation note* Diagnosis Onset Date Resolution Status Inflammation of right sacroiliac joint acute Trochanteric bursitis acute DJD (degenerative joint disease), lumbosacral acute Inflammation of right sacroiliac joint acute Chronic bronchitis acute Hypothyroid acute Lumbar spondylosis acute BRET (obstructive sleep apnea) acute DJD (degenerative joint disease), lumbosacral acute Inflammation of right sacroiliac joint acute [facility] Work Phone: Evaluation note* Diagnosis Onset [...] of chroni c obstructive airways disease noneactive [facility] Work Phone: Evaluation note* Diagnosis Onset [...] acute Inflammation of right sacroiliac joint acute [facility] Work Phone: Evaluation note* Diagnosis Onset [...] acute Inflammation of right sacroiliac joint acute [facility] Work Phone: Evaluation note* Diagnosis Onset [...] edema acute BRET (obstructive sleep apnea) acute [facility] Work Phone: Evaluation note* Diagnosis Onset [...] acute Inflammation of right sacroiliac joint acute [facility] Work Phone: Evaluation note* Diagnosis Onset [...] acute Painful total knee replacement, right acute [facility] Work Phone: Evaluation note* Diagnosis Onset Date Resolution Status DJD (degenerative joint disease), lumbosacral acute Inflammation of right sacroiliac joint acute Arthritis of carpometacarpal (CMC) joint of both thumb s acute DJD (degenerative joint disease), lumbosacral acute Inflammation of right sacroiliac joint acute Acute exacerbation of chroni c obstructive airways disease acute Hypothyroid acute Lower extremity edema acute Obesity acute BRET (obstructive sleep apnea) acute Retained suture acute Chronic pain acute DJD (degenerative joint disease), lumbosacral acute Knee pain acute Painful total knee replacement, right acute Chronic pain acute DJD (degenerative joint disease), lumbosacral acute Knee pain acute [facility] Work Phone: Evaluation note* Diagnosis Onset Date Resolution Status Arthritis of carpometacarpal (CMC) joint of both thumb s acute DJD (degenerative joint disease), lumbosacral acute Inflammation of right sacroiliac joint acute Acute exacerbation of chroni c obstructive airways disease acute Hypothyroid acute Lower extremity edema acute Obesity acute BRET (obstructive sleep apnea) acute Retained suture acute Chronic pain acute DJD (degenerative joint disease), lumbosacral acute Knee pain acute Painful total knee replacement, right acute Chronic pain acute DJD (degenerative joint disease), lumbosacral acute Knee pain acute [facility] Work Phone: History general Narrative - [...] Surgical History RIGHT HIP FRACTURE S/P ORIF 11/ 2016 Surgical History INJECT TRIGGER POINT, 1 OR 2 20 17 Surgical History end of coccyx removal 2017 Surgical History Right Shoulder Arthr oscopy with Rotator Cuff Repair- Dr. Patel 08/01/2019 Surgical History tlif [id number] 03/05/2021 Hospitalization History See above [facility] Other History general Narrative - Reported* Type [...] shoulder, left 02/2023 Hospitalization History See above [facility] Discharge instructions Additional Instructions DISCHARGE [...] OTHER -Any problems call the office at [phone] or return to Emergency Room. If you [...] in one week; call the office at [phone] if your appointment has not been made already. Call [phone] for further questions.[facility] Work Phone: Summary Purpose Family History [...] Right hip pain (M25. 551) Referral Organization [facility] [employer] cathie Referring Provider First Name Barry Referring Provider Last Name Nicolas Referring Provider Specialty Pain Medici ne Referred Organization [facility] [employer] pedjp Referred Provider Coy Cassidy II Referred Address [address] [facility] [place],[address] Referred Provider Specialty Orthopedic S urgery Referral [...] 1 Lumbar spondylosis ( M47.816) Referral Organization [facility] Referring Provider First Name Benigno Referring Provider Last Name Marcia Referring Provider Specialty Neurologica l Surgery Referred Organization [facility] Pain Managemen t Referred Provider Albin Sweeney Referred Address [address],[address] Referred Provider Specialty Pain Medicin e Referral [...] R SI & BURSA Cough, Chills-COVID Negative- [phone] Reason for Visit Chronic pain Inflammation of [...] R SI & BURSA Cough, Chills-COVID Negative- [phone] month follow up Reason for Visit Inflammation of righ t sacroiliac joint Trochanteric bursitis DJD (degenerative joint disease), lumbosacral Inflammation of right sacroiliac joint Chronic bronchitis Hypothyroid Lumbar spondylosis BRET (obstructive sleep apnea) Chief Complaint M25.551 [address]25.[address] CASSIDY RIGHT SI & TROCH BURSA INJ/DS F/U AFTER R SI & BURSA Cough, Chills-COVID Negative- [phone] month follow up RIGHT LUMBAR FACET [...] R SI & BURSA Cough, Chills-COVID Negative- [phone] month follow up RIGHT LUMBAR FACET [...] R SI & BURSA Cough, Chills-COVID Negative- [phone] month follow up RIGHT LUMBAR FACET [...] R SI & BURSA Cough, Chills-COVID Negative- [phone] month follow up RIGHT LUMBAR FACET [...] on right leg 1 month follow up OP/BULK GAS SPECIALIST RIGHT LEG PAIN Reason for Visit Acute [...] on right leg 1 month follow up OP/BULK GAS SPECIALIST RIGHT LEG PAIN z96.651 t84.84xa Reason for [...] Painful total knee replacement, right Chief Complaint 1 MONTH OP SP RT THUMB PAIN 1 MONTH FOLLOW UP leg swelling, lump on right leg 1 month follow up OP/BULK GAS SPECIALIST RIGHT LEG PAIN z96.651 t84.84xa 1 MONTH Reason for Visit DJD (degenerative barrington int [...] Knee pain Painful total knee replacement, right Chronic pain DJD (degenerative joint disease), lumbosacral Knee pain Chief Complaint OP SP RT THUMB PAIN 1 MONTH FOLLOW UP leg swelling, lump on right leg 1 month follow up OP/BULK GAS SPECIALIST RIGHT LEG PAIN z96.651 t84.84xa 1 MONTH B12 Shot Reason for Visit Arthritis of carpome tacarpal (CMC) joint of both thumbs DJD (degenerative joint disease), lumbosacral Inflammation of right sacroiliac joint Acute exacerbation of chronic obstructive airways disease Hypothyroid Lower extremity edema Obesity BRET (obstructive sleep apnea) Retained suture Chronic pain DJD (degenerative joint disease), lumbosacral Knee pain Painful total knee replacement, right Chronic pain DJD (degenerative joint disease), lumbosacral Knee pain Additional Source Comments INFORMATION SOURCE (unrecogn ized section and content) DATE CREATED AUTHOR 04/15/2018 [facility] DATE CREATED AUTHOR AUTHOR'S ORGANIZ ATION 06/22/2018 [facility] DATE CREATED AUTHOR AUTHOR'S ORGANIZ ATION 07/04/2018 [facility] DATE CREATED AUTHOR AUTHOR'S ORGANIZ ATION 12/07/2022 [facility] DATE CREATED AUTHOR AUTHOR'S ORGANIZ ATION 03/18/2024 [facility] EP[facility] DATE CREATED AUTHOR AUTHOR'S ORGANIZ ATION 04/16/2024 [facility] REASON FOR VISIT (unrecogniz ed [...] Member Role Status Dates Chucho Saravia , Primary Care Provider Active Barry Patel MD Attending Provider Active Team Status: Inactive Member Role Status Dates Chucho Saravia , DO Primary Care Provider Active Barry Patel MD Attending Provider Active Team Status: Inactive Member Role Status Dates Chucho Manjit , DO Primary Care Provider, Referring Pr [...] Member Role Status Dates Chucho Saravia , Primary Care Provider Active Coy Cassidy II, MD Attending Provider Active Team Status: Active Member Role Status Dates Chucho Saravia , Primary Care Provider Active Start: November 11, 2023 CARA Clifton Attending Provider Active Start : November 11, 2023 Team Status: Inactive Member Role Status Dates Chucho Saravia , Primary Care Provider Active Start: November 25, 2023 End: November 25, 2023 Barry Valenzuela MD Attending Provider Active Sta rt: November 25, 2023 End: November 25, 2023 Team Status: Inactive Member Role Status Dates Chucho Saravia , Primary Care Provider Active Start: April 12, 2024 End: April 12, 2024 Coy Cassidy II, MD Attending Provider Active Start: April 12, 2024 End: April 12, 2024 Team Status: Inactive Member Role Status Dates Chucho Saravia , Primary Care Provider Active Start: May 08, 2024 End: May 08, 2024 Barry Valenzuela MD Attending Provider Active Sta rt: May 08, 2024 End: May 08, 2024 Team Status: Inactive Member Role Status Dates Chucho Saravia , Primary Care Provide r, Attending Provider Active Start: May 15, 2024 End: May 15, 2024 Goals (unrecognized section and content) Goals [...] BE BASED ON THE PRIMARY CLINICAL RECORDS. [employer] [facility]. provides no warranty or guarantee of the accuracy or completeness of information in this document.
[2024-05-15 10:21] LABS: Anion Gap 9.6; BUN Creatinine Ratio 25.9; Calcium 9.2 mg/dL (8.5-10.1); Carbon Dioxide 30.2 mmol/L (21.0-32.0); Chloride 107 mmol/L (98-107); Estimated GFR (African America >60 (>=60); Estimated GFR (Non-African Ame >60 (>=60); Glucose 71 mg/dL (74-106); Potassium 3.8 mmol/L (3.5-5.1); Sodium 143 mmol/L (136-145)
== END 2024-05-15 09:19 | disposition home or self-care (01) ==
LOC: LAB 09:19
PROVIDERS: PCP Internal Medicine; Visit Provider Internal Medicine
DX: M81.0 Age-related osteoporosis without current pathological fracture (principal)
CPT/HCPCS: 36415; 80048; 82306

== ENCOUNTER 2024-05-24 07:25 | Outpatient (RCR) | payer MEDICARE, OTHER, SELFPAY ==
[2024-05-24 09:56] VITALS: BP 144/76; PULSE 57; TEMP 36.2; O2SAT 96
[2024-05-24] MEDS: DENOSUMAB 60 MG/ML SYRINGE SUBQ (10:21)
== END 2024-05-27 23:59 | disposition home or self-care (01) ==
LOC: INF 07:25
PROVIDERS: PCP Internal Medicine; Visit Provider Internal Medicine
DX: M81.0 Age-related osteoporosis without current pathological fracture (principal)
CPT/HCPCS: 96372; J0897

== ENCOUNTER 2024-06-27 08:48 | Outpatient (OUT) | payer MEDICARE, OTHER, SELFPAY ==
--- OUTSIDE RECORDS SUMMARY | 2024-06-27 09:11 | XMS_ITS | CCD ---
Author Organization [facility] Care Team Providers Care Hand Scraper Name Role Phone LEIF, RENATA Unavailable Unavailable CHUCHO SARAVIA E Unavailable Unavailable LEIF, RENATA Unavailable Unavailable LEIF, RENATA Unavailable Unavailable CIRA BENDER Unavailable Unavailable CHUCHO SARAVIA Unavailable Unavailable Barry Valenzuela Unavailable Benigno Kennedy Unavailable DO Chucho Saravia Primary Care Provider DO Chucho Saravia Referring Provider Self, Referral Attending Provider Unavailable DO Chucho Saravia Primary Care Provider [phone] DO Chucho Saravia Referring Provider Self, Referral Attending Provider Unavailable MD Benigno Kennedy Attending Provider [phone] DO Chucho Saravia Primary Care Provider MD [...] MD Coy Cassidy II Attending Provider [phone] MD Barry Patel Attending Provider DO Chucho [...] adhesive tape Propensity to adverse reactions rash [facility] [employer] Other (20 sources) Adhesive Tape; Translations: [Adhesive tape] Allergy to substance 1 Rash;blisterin g (10 sources) Adhesive Tape Drug allergy Unknown [facility] [employer] Other (20 sources) zoledronic acid Drug Allergy 4 Unknown, Unknown Reaction (3 sources) Allergies Reconciled Propensity to adverse reactions Unknown [facility] [employer] Other (3 sources) patient allergy list reviewed by nurse or physicia Propensity to adverse reactions 3 Comment:Done [facility] [employer] Other (18 sources) Mannitol; Translations: [mannitol] Drug Allergy 4 Unknown Reaction (18 sources) water for injection,steri le; Translations: [water for injection,steri le] Allergy to substance 4 Unknown Reaction (1 source) zoledronic acid Drug Allergy 4 Repository Medications Current Medications Medication Drug Class(es) Dates Sig (Normalized) Sig (Original) acetaminophen 325 mg / oxyCODONE hydrochloride 5 mg oral tablet (20 sources) Opioid Agonist Start: 02-23-2023 take 1 tablet by mouth every four hours as needed for pain Percocet 5-325 MG 1 tablet as needed for pain Orally up to every 4 hrs for 5 days GABE: [id number] January, Active Start: 05-27-2021 take 1 tablet [...] 25, 2017 12:00am April 07, 2018 11:40pm [id number] 200 actuat albuterol 0.09 mg/actuat metered dose [...] mg oral tablet (20 sources) Benzodiazepine Start: 05-29-2024 take 1 tablet by mouth once daily in the evening Alprazolam Active 0.5 MG PO .COMPLEX 45 May 29, 2024 8:43am 0.5 mg orally 1/2 tab q am and 1 tab q evening; Start: 12-09-2023 End: 05-29-2024 take 0.5 tablet by mouth twice daily in the morning, then take 1 tablet by mouth once at bedtime Alprazolam Discontinued 0.5 MG PO Twice daily December 09, 2023 1:08pm May 29, 2024 8:44am 1/2 tab PO q AM and 1 tab PO q HS Start: 08-11-2023 ALPRAZolam 0.5 MG TAKE 1/2 (ONE-HALF) TABLET BY MOUTH ONCE DAILY AND 1 TAB AT BEDTIME FOR 30 DAYS for 30 Jul, Active Start: 03-05-2021 End: 02-12-2023 Alprazolam Discontinued TABL ET March 05, 2021 12:00am February 12, 2023 10:13am Start: 02-19-2021 End: 02-12-2023 Alprazolam Discontinued TABL ET March 05, 2021 12:00am February 12, 2023 10:13am Start: 04-07-2018 End: 12-09-2023 take 0.25 mg by mouth twice daily at bedtime Alprazolam Discontinued 0.25 MG PO Twice daily November 09, 2023 2:16pm December 09, 2023 1:10pm 1pm and HS Start: 06-25-2017 End: 10-28-2020 take 0.25 mg by mouth once daily Alprazolam Discontinu ed 0.25 MG PO Daily July 17, 2019 12:00am October 28, 2020 9:32am cefuroxime 500 mg oral tablet (20 sources) Cephalosporin Antibacterial Start: 04-03-2024 take 500 [...] hours Cephalexin Discontinued 500 MG PO Q8H 15 January 06, 2019 12:00am January 11, 2019 12:05am 1 ml denosumab 60 mg/ml prefilled syringe (20 sources) RANK Ligand Inhibitor Start: 10-28-2020 End: 02-01-2024 Denosumab (Prolia) 60 mg/mL syringe Active 60 MG SUBCUT EVERY 6 MONTHS February 01, 2024 4:59pm diclofenac sodium 75 mg delayed release oral tablet (20 sources) Nonsteroidal Anti-inflammatory Drug Start: 12-21-2023 End: 06-26-2024 take 75 mg by mouth twice daily Diclofenac Sodium Active 75 MG PO Twice daily 180 90 June 26, 2024 11:21am Start: 02-12-2023 End: 12-21-2023 take 75 mg [...] Twice a day for 90 days Active doxycycline hyclate 100 mg oral capsule (3 sources) Tetracycline-class Drug Start: 10-04-2023 take 1 capsule by mouth twice daily Doxycycline Hyclate 100 MG 1 capsule Orally twice daily for 7 days Sep, Active escitalopram 10 mg oral tablet (1 source) Serotonin Reuptake Inhibitor Start: 06-26-2024 take 10 mg by mouth once daily Escitalopram Oxalate Active 10 MG PO Daily June 26, 2024 12:00am Fluticasone Propion-Salmetero l (20 sources) Corticosteroid, beta2-Adrenergic Agonist Start: 05-09-2024 take 1 puff(s) by inhalation twice daily Fluticasone Propion-Salmeter ol Active 0 .ROUTE .COMPLEX 60 May 09, [...] mg oral tablet (20 sources) l-Thyroxine Start: 06-20-2024 take 1 tablet by mouth once daily Levothyroxine Active 0 .ROUTE .COMPLEX 90 June 20, 2024 7:39pm Take 1 tablet by mouth once daily Start: 12-13-2023 End: 06-20-2024 take 150 ug by mouth once daily Levothyroxine Disconti nued 150 MCG PO Daily December 13, 2023 12:00am June 20, 2024 7:40pm Start: 06-25-2017 End: 12-13-2023 take 150 ug [...] Oct, Active mupirocin 0.02 mg/mg topical ointment (9 sources) RNA Synthetase Inhibitor Antibacterial Start: 03-31-2024 Mupirocin Active 1 APPLIC TOPICAL Twice daily 18 07March 31, 2024 12:00am niacin 50 mg oral tablet (20 sources) Nicotinic Acid Start: 12-13-2023 take 100 mg by mouth twice daily Niacin Active 100 MG PO Twice daily December 13, 2023 12:00am Start: 04-29-2023 take 2 tablets by mo [facility] every twelve hours Niacin 50 MG 2 tablets Orally Twice a day for 30 days Apr, Not-Taking/PRN Potassium Chloride (20 sources) Start: 05-01-2024 take 1 tablet by raven th once daily Potassium Chloride Active 0 .ROUTE .COMPLEX 90 May 01, 2024 11:05am Take 1 tablet by mouth once daily Start: 06-03-2017 End: 05-01-2024 take 20 mEq by mouth once daily Potassium Chloride (Kl or-Con) 20 mEq Packet Discontinued 20 MEQ PO Daily June 03, 2017 12:00am May 01, 2024 11:05am take 1 tablet by raven th once daily Potassium Chloride ER 20 MEQ Take 1 tablet by mouth once daily Active torsemide 20 mg oral tablet (11 sources) Loop Diuretic Start: 06-20-2024 take 1 tablet by mouth once daily Torsemide Active 0 .ROUTE .COMPLEX June 20, 2024 7:40pm Take 1 tablet by mouth once daily Start: 03-31-2024 End: 06-20-2024 take 20 mg by mouth once daily Torsemide Discontinued 20 MG PO Daily 30 March 31, 2024 12:00am June 20, 2024 7:40pm traMADol hydrochloride 50 mg oral tablet (20 sources) Opioid Agonist Start: 04-12-2023 take 1 tablet by mouth every four hours as needed for pain traMADol HCl 50 MG 1 tablet as needed for severe pain Orally up to every 4 hrs for 5 days GABE: [id number] Mar, Active Start: 03-21-2018 End: 04-07-2018 take 1 tablet by mouth every six hours Tramadol Discontinued 1 TAB PO Every 6 hours March 21, 2018 12:00am April 07, 2018 11:40pm traZODone (20 sources) Serotonin Reuptake Inhibitor Start: 06-20-2024 take 2 tablets by mouth once daily at bedtime Trazodone Active 0 .ROUTE .COMPLEX 180 June 20, 2024 7:40pm TAKE 2 TABLETS BY MOUTH ONCE DAILY AT BEDTIME Start: 12-09-2023 End: 06-20-2024 take 2 tablets by mouth once daily at bedtime Trazodone Discontinued 0 .ROUTE .COMPLEX 180 December 09, 2023 1:09pm June 20, 2024 7:40pm TAKE 2 TABLETS BY MOUTH ONCE DAILY AT BEDTIME Start: 12-09-2023 take 2 tablets by mo uth once daily at bedtime Trazodone Active 0 [...] if needed take 2 tablets by mo [facility] once daily at bedtime traZODone HCl 50 [...] (20 sources) Opioid Agonist Start: 11-25-2023 End: 06-05-2024 take 1 tablet by mouth twice daily Hydrocodone-Acetami nophen Discontinued 1 TAB PO Twice daily 60 May 08, 2024 June 05, 2024 11:00am Start: 07-06-2023 take 1 tablet by raven twice daily as needed HYDROcodone-Acetaminophen 5-325 MG 1 tablet as needed Orally up to twice a day for 30 days Jun, Active Start: 08-04-2022 take 1 tablet by raven th twice daily as needed HYDROcodone-Acetaminophen 5-325 MG 1 tablet as needed Orally up to twice a day for 30 days Jul, Active Start: 09-02-2021 take 1 tablet by raven twice daily as needed HYDROcodone-Acetaminophen 5-325 MG [...] hours Hydrocodone-Acetaminophen Discontinued 2 TAB PO Q6H 23 04October 20, 2018 October 27, 2018 1:02am Start: 04-08-2018 End: 05-25-2018 take 1 tablet by mouth every four to six hours Hydrocodone-Acetaminophen ([place]) 5-325 mg Tablet Discontinued 1 TAB PO [...] of dose azithromycin 250 mg oral tablet (20 sources) Macrolide Antimicrobial Start: 12-13-2023 End: 03-31-2024 [...] OPHTHALMIC As Directed February 12, 2023 12:00am docusate sodium 100 mg oral capsule (20 [...] mL by inhalation every four hours Ipratropium Rochelle Discontinued 3 ML INHALATION Q4H February 12, 2023 12:00am December 13, 2023 10:14am Start: 11-20-2022 take 2.5 mL by inhal ation every six hours Ipratropium Rochelle 0.02 % 2.5 mL Inhalation every 6 hrs Oct, Active Start: 11-20-2022 Lidocaine (20 sources) Antiarrhythmic, Amide Local Anesthetic Start: 12-14-2022 Start: 12-14-2022 Lidocaine 20 M 2022 20 mg metroNIDAZOLE 500 mg oral [...] Start: 07-24-2021 take 1 capsule by mo ut every twelve hours Lyrica 150 MG 1 [...] 10-28-2020 take 5 mg intravenously once Zoledronic Aifu-Qgjlestw-Ksarf (Reclast) 5 mg/100 mL Piggyback Discontinued 5 [...] 06-06-2018 Complication of device; implant or graft (13 sources) 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; [...] as uncontrolled] Chronic Disorders of lipid metabolism (7 sources) Pure hypercholesterolemia ; Translations: [Pure hypercholesterolemia , unspecified] Onset: 11-12-2015 06-26-2024 Chronic Essential hypertension (9 sources) Benign essential [...] sources) High risk drug monitoring status; Translations: [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] Episodic Other aftercare (3 sources) Long-term current use of drug therapy; Translations: [Other skilled nursing (current) drug therapy] Episodic Other aftercare (3 sources) Long-term current use of inhaled steroid; Translations: [nursing home (current) use of inhaled steroids] Episodic Other [...] right leg Episodic Other connective tissue disease (17 sources) Trochanteric bursitis; Translations: [Trochanteric bursitis, left hip] 11-25-2023 Episodic Other connective tissue disease (17 sources) Bursitis of hip; Translations: [Trochanteric bursitis, [...] pain] 11-25-2023 Chronic Other nervous system disorders (20 sources) Other chronic pain; Translations: [Other chronic [...] left shoulder Episodic Other non-traumatic joint disorders (20 sources) Pain in unspecified knee; Translations: [Knee [...] nutritional; endocrine; and metabolic disorders (9 sources) Obesity, unspecified; Translations: [Obesity, unspecified] 03-31-2024 Chronic Other nutritional; endocrine; and metabolic disorders (3 sources) Overweight; Translations: [Overweight] Episodic Other screening for suspected conditions (not mental disorders or infectious disease) (3 sources) Imaging result abnormal; Translations: [Abnormal findings on diagnostic imaging of other specified body structures] Chronic Other screening for suspected conditions (not mental disorders or infectious disease) (4 sources) Abnormal findings on diagnostic imaging of breast; Translations: [Other abnormal and inconclusive findings on diagnostic imaging of breast] Onset: 01-27-2018 06-26-2024 Episodic Other upper respiratory disease (3 sources) Seasonal allergic rhinitis; Translations: [Other seasonal allergic rhinitis] Chronic Other upper respiratory disease (9 sources) Allergic rhinitis; Translations: [Other allergic rhinitis] Onset: 01-29-2014 Chronic Other upper respiratory disease (3 sources) Vasomotor rhinitis; Translations: [Vasomotor rhinitis] Chronic Other upper respiratory infections (6 sources) Acute maxillary sinusitis; Translations: [Acute recurrent maxillary sinusitis] Onset: 08-26-2015 Episodic Residual codes; unclassified (20 sources) Obstructive sleep apnea (adult) (pediatric); Translations: [Obstructive sleep apnea (adult)(pediatric)] Onset: 01-19-2022 Chronic Residual codes; unclassified (20 sources) Obstructive sleep apnea syndrome; Translations: [Obstructive sleep apnea (adult) (pediatric)] Onset: 10-26-2016 12-19-2023 Chronic Residual codes; unclassified (14 sources) Pain; Translations: [Pain, unspecified] 10-11-2018 Episodic Residual codes; unclassified (9 sources) Edema of lower extremity; Translations: [Localized edema] 03-31-2024 Episodic Residual codes; unclassified (9 sources) Localized edema; Translations: [Edema] 03-31-2024 Episodic [...] object(s), not elsewhere classified, initial encounter; Translations: [[facility] SHRP OB NOT ELSW CLASS INI] Onset: [...] 09-02-2021 Episodic Other aftercare (1 source) Other skilled nursing (current) drug therapy; Translations: [[facility] DIGITAL MEDIA STRATEGIST CURRENT DRUG THERAPY] Onset: 04-17-2022 Episodic Other [...] left hip] Onset: 08-15-2021 Resolved: 11-07-2021 Episodic Pathological fracture (6 sources) Osteoporosis of [...] glomerular filtrat ion rate (GFR) non- Americanon 05-15-2024 GFR/1.73 sq M.predicted among non-blacks MDRD (S/P/Bld) [Vol rate/Area] mL/min/{1.73_m2} >=60 Laboratory - Chemistry and C hemistry - challengeon 05-15-2024 Calcium [Mass/Vol] 9.2 mg/dL 8.5-10.1 [facility] Chloride [Moles/Vol] 107 mmol/L 98-107 [facility] CO2 [Moles/Vol] 30.2 mmol/L 21.0-32.0 [facility] Creatinine [Mass/Vol] 0.85 mg/dL 0.55-1.02 [facility] GFR/1.73 sq M.predicted MDRD (S/P/Bld) [Vol rate/Area] mL/min/{1.73_m2} >=60 Glucose [Mass/Vol] 71 mg/dL Low 74-106 [facility] Potassium [Moles/Vol] 3.8 mmol/L 3.5-5.1 [facility] Sodium [Moles/Vol] 143 mmol/L 136-145 [facility] Urea nitrogen [Mass/Vol] 22.0 mg/dL High 7.0-18.0 Urea nitrogen/Creatinine [Mass ratio] 25.9 mg/mg No Panel Informationon 05-15 25-Hydroxy Vitamin D Total 83.4 ng/mL Comment on above: <20 ng/mL Vit D defi cient20-<30 ng/mL Vit D -866 ng/mL Vit D sufficient>100 ng/mL Potential Toxicity Serum or plasma anion gap de terminationon 05-15-2024 Anion gap [Moles/Vol] 9.6 mmol/L [facility] Automated basophil %Ordered By: Coy Cassidy on 04-12-2024 Basophils/100 WBC (Bld) 2.0 % . Comment on above: Performed By: #### C RP, DDIMER, CBC, ESR #### [address] Automated basophil countOrde red By: Coy Cassidy on 04-12-2024 Basophils (Bld) [#/Vol] 0.1 10*3/uL 0.0-0.2 Comment on above: Performed By: #### C RP, DDIMER, CBC, ESR #### [facility] [address] [place] [address] Automated blood monocyte cou ntOrdered By: Coy Cassidy on 04-12-2024 Monocytes (Bld) [#/Vol] 0.4 10*3/uL 0.0-0.8 Comment on above: Performed By: #### C RP, DDIMER, CBC, ESR #### [address] Automated eosinophil %Ordere d By: Coy Cassidy on 04-12-2024 Eosinophils/100 WBC (Bld) 6.0 % . Comment on above: Performed By: #### C RP, DDIMER, CBC, ESR #### [address] Automated eosinophil countOr dered By: Coy Cassidy on 04-12-2024 Eosinophils (Bld) [#/Vol] 0.3 10*3/uL 0.0-0.45 Comment on above: Performed By: #### C RP, DDIMER, CBC, ESR #### [address] Automated monocyte %Ordered By: Coy Cassidy on 04-12-2024 Monocytes/100 WBC (Bld) 9.0 % . Comment on above: Performed By: #### C RP, DDIMER, CBC, ESR #### [address] Automated neutrophil %Ordere d By: Coy Cassidy on 04-12-2024 Neutrophils/100 WBC (Bld) 44.4 % . Comment on above: Performed By: #### C RP, DDIMER, CBC, ESR #### [address] C reactive protein [Mass/vol ume] in Serum or PlasmaOrdered By: Coy Cassidy on 04-12-2024 CRP [Mass/Vol] < 0.5 mg/dL 0.0-0.5 C-Reactive Proteinon 024 CRP [Mass/Vol] mg/L Normal 0.0-0.5 [facility] Comment on above: Result Comment: PERF ORMED BY: [place] [address] PATHOLOGIST BOARD MACHINE SET UP OPERATOR POWER GUTIERREZ M.D. Performed By: #### C RP, DDIMER, CBC, ESR #### [address] Complete Blood Count Auto Di ffon 04-12-2024 Mean Corpuscular HGB Conc 32.9 g/dL Normal 32.0-35.0 [facility] Comment on above: Performed By: #### C RP, DDIMER, CBC, ESR #### [address] NRBC% 0.3 /100{WBC} Normal 0-0.5 [facility] Comment on above: Performed By: #### C RP, DDIMER, CBC, ESR #### [address] D-Dimer High Sensitivityon 0 04-12-2024 D-Dimer High Sensitivity 463 ng/mL High 0-243 [facility] Comment on above: Result [...] coagulation studies. Please contact the laboratory at [phone] for redraw instructions. PERFORMED BY: [place] [address] PATHOLOGIST BOARD MACHINE SET UP OPERATOR POWER GUTIERREZ M.D. Performed By: #### C RP, DDIMER, CBC, ESR #### [address] Erythrocyte Sedimentation Ra prabhjot 04-12-2024 ESR (Bld) [Velocity] 32 mm/h High 0-29 [facility] Comment on above: Result Comment: PERF ORMED BY: [place] [address] PATHOLOGIST BOARD MACHINE SET UP OPERATOR POWER GUTIERREZ M.D. Performed By: #### C RP, DDIMER, CBC, ESR #### [address] Erythrocyte distribution wid th [Ratio] by Automated countOrdered By: Coy Cassidy on 04-12-2024 Erythrocyte distribution width (RBC) [Ratio] 16.4 % High 11.9-15.3 Comment on above: Performed By: #### C RP, DDIMER, CBC, ESR #### [facility] [place] [address] Erythrocyte sedimentation ra te by Photometric methodOrdered By: Coy Cassidy on 04-12-2024 ESR Photometric method (Bld) [Velocity] 32 mm/hr High 0-29 Erythrocytes [#/volume] in B lood by Automated countOrdered By: Coy Cassidy on 04-12-2024 RBC (Bld) [#/Vol] 4.24 10*6/uL 3.60-5.00 [facility] Comment on above: Performed By: #### C RP, DDIMER, CBC, ESR #### [facility] [address] Fibrin D-dimer [Presence] in Platelet poor plasma by Latex agglutinationOrdered By: Coy Cassidy on 04-12-2024 Fibrin D-dimer LA Ql (PPP) 463 ng/mL High 0-243 Comment on above: The reference range for [...] coagulation studies. Please contact the laboratory at [phone] for redraw instructions. Hematocrit [Volume Fraction] of Blood by Automated countOrdered By: Coy Cassidy on 04-12-2024 Hematocrit (Bld) [Volume fraction] 36.9 % 34.0-46.4 Comment on above: Performed By: #### C RP, DDIMER, CBC, ESR #### [address] Hemoglobin [Mass/volume] in BloodOrdered By: Coy Cassidy on 04-12-2024 Hemoglobin (Bld) [Mass/Vol] 12.2 g/dL 11.8-15.4 Comment on above: Performed By: #### C RP, DDIMER, CBC, ESR #### [address] Leukocytes [#/volume] correc ana for nucleated erythrocytes in Blood by Automated counOrdered By: Coy Cassidy on 04-12-2024 WBC corrected for nucl RBC Auto (Bld) [#/Vol] 4.8 10*3/uL 3.8-11.6 Leukocytes [#/volume] in Blo od by Automated countOrdered By: Coy Cassidy on 04-12-2024 WBC (Bld) [#/Vol] 4.8 10*3/uL 3.8-11.6 [facility] Comment on above: Performed By: #### C RP, DDIMER, CBC, ESR #### [address] Lymphocytes [#/volume] in Bl ood by Automated countOrdered By: Coy Cassidy on 04-12-2024 Lymphocytes (Bld) [#/Vol] 1.9 10*3/uL 1.00-4.8 Comment on above: Performed By: #### C RP, DDIMER, CBC, ESR #### [place] [address] [place] Lymphocytes/100 leukocytes i n Blood by Automated countOrdered By: Coy Cassidy on 04-12-2024 Lymphocytes/100 WBC (Bld) 38.6 % . Comment on above: Performed By: #### C RP, DDIMER, CBC, ESR #### [place] [address] [place] MCH [Entitic mass] by Automa ana countOrdered By: Coy Cassidy on 04-12-2024 MCH (RBC) [Entitic mass] 28.7 pg 24.7-34.3 Comment on above: Performed By: #### C RP, DDIMER, CBC, ESR #### [address] MCHC Auto (RBC) [Mass/Vol]Or dered By: Coy Cassidy on 04-12-2024 MCHC (RBC) [Mass/Vol] 32.9 g/dL 32.0-35.0 [facility] MCV [Entitic volume] by Auto mated countOrdered By: Coy Cassidy on 04-12-2024 MCV (RBC) [Entitic vol] 87.1 fL 80-100 Comment on above: Performed By: #### C RP, DDIMER, CBC, ESR #### [address] Neutrophils [#/volume] in Bl ood by Automated countOrdered By: Coy Cassidy on 04-12-2024 Neutrophils (Bld) [#/Vol] 2.1 10*3/uL 1.8-7.7 Comment on above: Performed By: #### C RP, DDIMER, CBC, ESR #### [facility] [address] [place] [address] Nucleated erythrocytes [Pres ence] in Blood by Automated countOrdered By: Coy Cassidy on 04-12-2024 Nucleated RBC Auto Ql (Bld) 0.3 /100{WBC} 0-0.5 Platelet mean volume [Entiti c volume] in Blood by Automated countOrdered By: Coy Cassidy on 04-12-2024 Platelet mean volume (Bld) [Entitic vol] 8.5 fL 6.3-10.7 Comment on above: Performed By: #### C RP, DDIMER, CBC, ESR #### [address] Platelets [#/volume] in Bloo d by Automated countOrdered By: Coy Cassidy on 04-12-2024 Platelets (Bld) [#/Vol] 380 10*3/uL 150-450 Comment on above: Performed By: #### C RP, DDIMER, CBC, ESR #### [address] Basophils Auto (Bld) [#/Vol] on 03-31-2024 Basophils (Bld) [#/Vol] 0.1 10 3/uL 0.0-0.1 Basophils/100 WBC Auto (Bld) on 03-31-2024 Basophils/100 WBC (Bld) 1.5 % 0.2-2.0 Eosinophils/100 WBC Auto (Bl d)on 03-31-2024 Eosinophils/100 WBC (Bld) 5.6 % 0.9-7.0 Erythrocyte distribution wid th Auto (RBC) [Ratio]on 03-31-2024 Erythrocyte distribution width (RBC) [Ratio] 15.8 % High 11.0-15.0 Estimated glomerular filtrat ion rate (GFR) non- Americanon 03-31-2024 GFR/1.73 sq M.predicted among non-blacks MDRD (S/P/Bld) [Vol rate/Area] mL/min/{1.73_m2} >=60 Globulin Calc (S) [Mass/Vol] on 03-31-2024 Globulin (S) [Mass/Vol] 3.4 g/dL Hematocrit Auto (Bld) [Volum e fraction]on 03-31-2024 Hematocrit (Bld) [Volume fraction] 37.6 % 36.0-48.0 Hemoglobin [Mass/volume] in Bloodon 03-31-2024 Hemoglobin (Bld) [Mass/Vol] 11.8 g/dL Low 12.0-16.0 Laboratory - Chemistry and C hemistry - challengeon 03-31-2024 Albumin [Mass/Vol] 3.7 g/dL 3.4-5.0 [facility] ALP [Catalytic activity/Vol] 51 U/L 46-116 ALT [Catalytic activity/Vol] 29 U/L 14-59 AST [Catalytic activity/Vol] 18 U/L 15-37 Bilirubin [Mass/Vol] 0.4 mg/dL 0.2-1.0 [facility] Calcium [Mass/Vol] 9.0 mg/dL 8.5-10.1 [facility] Chloride [Moles/Vol] 106 mmol/L 98-107 [facility] CO2 [Moles/Vol] 28.6 mmol/L 21.0-32.0 [facility] Creatinine [Mass/Vol] 0.88 mg/dL 0.55-1.02 [facility] GFR/1.73 sq M.predicted MDRD (S/P/Bld) [Vol rate/Area] mL/min/{1.73_m2} >=60 Glucose [Mass/Vol] 89 mg/dL 74-106 [facility] Potassium [Moles/Vol] 4.1 mmol/L 3.5-5.1 [facility] Protein [Mass/Vol] 7.1 g/dL 6.4-8.2 [facility] Sodium [Moles/Vol] 142 mmol/L 136-145 [facility] TSH Qn 2.110 m[IU]/L 0.358-3.740 Urea nitrogen [Mass/Vol] 15.0 mg/dL 7.0-18.0 Urea nitrogen/Creatinine [Mass ratio] 17.0 mg/mg Laboratory - Hematology and Cell countson 03-31-2024 Immature granulocytes/100 WBC (Bld) 0.2 % 0.0-0.5 Leukocytes [#/volume] correc ana for nucleated erythrocytes in Blood by Automated counon 03-31-2024 WBC corrected for nucl RBC Auto (Bld) [#/Vol] 4.1 10 3/uL 4.0-11.0 Lymphocytes Auto (Bld) [#/Vo l]on 03-31-2024 Lymphocytes (Bld) [#/Vol] 1.6 10 3/uL 1.2-3.8 Lymphocytes/100 WBC Auto (Bl d)on 03-31-2024 Lymphocytes/100 WBC (Bld) 38.5 % 20.5-60.0 [facility] Auto (RBC) [Entitic mass ]on 03-31-2024 MCH (RBC) [Entitic mass] 28.6 pg 26.7-34.0 [facility] Auto (RBC) [Mass/Vol]on 03-31-2024 MCHC (RBC) [Mass/Vol] 31.4 g/dL 29.9-35.2 [facility] MCV Auto (RBC) [Entitic vol] on 03-31-2024 MCV (RBC) [Entitic vol] 91.0 fL 81.0-99.0 Monocytes Auto (Bld) [#/Vol] on 03-31-2024 Monocytes (Bld) [#/Vol] 0.4 10 3/uL 0.3-0.8 Monocytes/100 WBC Auto (Bld) on 03-31-2024 Monocytes/100 WBC (Bld) 10.2 % 1.7-12.0 Neutrophils Auto (Bld) [#/Vo l]on 03-31-2024 Neutrophils (Bld) [#/Vol] 1.8 10 3/uL 1.4-6.5 Neutrophils/100 WBC Auto (Bl d)on 03-31-2024 Neutrophils/100 WBC (Bld) 44.0 % 43.0-75.0 No Panel Informationon 03-31 Eosinophils # (Auto) 0.2 10 3/uL 0.0-0.7 [facility] Immature Granulocyte # (Auto) 0.01 10 3/uL 0.00-0.03 Urine Random Creatinine <13.00 mg/dL Low 20.00-300.0 0 Urine Random Total Protein <6.0 mg/dL <=11.9 Platelet mean volume Auto (B ld) [Entitic vol]on 03-31-2024 Platelet mean volume (Bld) [Entitic vol] 10.0 fL 9.5-13.5 Platelets Auto (Bld) [#/Vol] on 03-31-2024 Platelets (Bld) [#/Vol] 323 10 3/uL 150-450 RBC Auto (Bld) [#/Vol]on RBC (Bld) [#/Vol] 4.13 10 6/uL Low 4.20-5.40 [facility] Serum or plasma albumin/glob ulin mass ratioon 03-31-2024 Albumin/Globulin [Mass ratio] 1.1 {ratio} Serum or plasma anion gap de terminationon 03-31-2024 Anion gap [Moles/Vol] 11.5 mmol/L [facility] Urine protein/creatinine rat ioon 03-31-2024 Protein/Creatinine (U) [Ratio] 0.00 Estimated glomerular filtrat ion rate (GFR) non- Americanon 01-31-2024 GFR/1.73 sq M.predicted among non-blacks MDRD (S/P/Bld) [Vol rate/Area] mL/min/{1.73_m2} >=60 Laboratory - Chemistry and C hemistry - challengeon 01-31-2024 Calcium [Mass/Vol] 9.9 mg/dL 8.5-10.1 [facility] Chloride [Moles/Vol] 108 mmol/L High 98-107 [facility] CO2 [Moles/Vol] 25.0 mmol/L 21.0-32.0 [facility] Creatinine [Mass/Vol] 0.80 mg/dL 0.55-1.02 [facility] GFR/1.73 sq M.predicted MDRD (S/P/Bld) [Vol rate/Area] mL/min/{1.73_m2} >=60 Glucose [Mass/Vol] 85 mg/dL 74-106 [facility] Potassium [Moles/Vol] 4.4 mmol/L 3.5-5.1 [facility] Sodium [Moles/Vol] 143 mmol/L 136-145 [facility] Urea nitrogen [Mass/Vol] 26.0 mg/dL High 7.0-18.0 Urea nitrogen/Creatinine [Mass ratio] 32.5 mg/mg No Panel Informationon 01-30 25-Hydroxy Vitamin D Total 75.9 ng/mL Comment on above: <20 ng/mL Vit D defi cient20-<30 ng/mL Vit D [id number] ng/mL Vit D sufficient>100 ng/mL Potential Toxicity Serum or plasma anion gap de terminationon 01-31-2024 Anion gap [Moles/Vol] 14.4 mmol/L [facility] XR hip BI w [id number] 11-03-19 XR hip BI w PEL1V [facility] [place] [address] [place] [address] XRay Report Signed Patient: Tiana Louis MR#: [id number] : 1945 Acct:[id number] Age/Sex: 78 / F ADM Date: 11/03/23 Loc: [facility] Room: Type: [facility] Attending Dr: Coy Cassidy II, MD [...] Tomeka Obando M.D.11/03/2023 11:09 AM Dictation Location: [facility] Transcribed By: [facility] 11/03/23 110 Dictated By: Tomeka Obando MD 11/03/23 1106 Signed By: 11/03/23 110 Normal [facility] XR hand BI 3Von 07-13-2023 XR hand BI 3V [facility] [place] [address] XRay Report Signed Patient: Tiana Louis MR#: [id number] : 1945 Acct:[id number] Age/Sex: 78 / F ADM Date: 07/13/23 Loc: [facility] Room: Type: [facility] Attending Dr: Barry Patel MD Copies [...] Vaibhav Lemus M.D.07/13/2023 4:07 PM Dictation Location: [place] [address] Transcribed By: STEF 07/13/23 1607 Dictated By: Vaibhav Lemus DO 07/13/23 1606 Signed By: 07/13/23 1607 Normal [facility] MM screening mammo BI w/CADo n 07-08-2023 MM screening mammo BI w/CAD [facility] Main [address] [address] Mammography Report Signed Patient: Tiana Louis MR#: [id number] : 1945 Acct:[id number] Age/Sex: 78 / F ADM Date: 07/08/23 Loc: [place] Room: Type: REG CLI Attending Dr: Referral Self Copies to: [...] Tomeka Obando M.D.07/08/2023 2:27 PM Dictation Location: [facility] Transcribed By: [facility] 07/08/231426 Dictated By: Tomeka Obando MD 07/08/231422 Signed By: 07/08/231426 Normal [facility] XR shoulder LT min 2V*on XR shoulder LT min 2V* [facility] [place] [address] XRay Report Signed Patient: Tiana Louis MR#: [id number] : 1945 Acct:[id number] Age/Sex: 78 / F ADM Date: 06/08/23 Loc: [facility] Room: Type: [facility] CLI Attending Dr: Barry Patel MD [...] Tomeka Obando M.D.06/08/2023 4:48 PM Dictation Location: [place] [address] Transcribed By: [facility] 06/08/23 1648 Dictated By: Tomeka Obando MD 06/08/23 1637 Signed By: 06/08/23 1648 Normal [facility] Alanine aminotransferase [En zymatic activity/volume] in Serum or PlasmaOrdered By: Barry Patel on 02-12-2023 ALT [Catalytic activity/Vol] 17 U/L 7-52 Albumin [Mass/volume] in Ser um or Plasma by Bromocresol green (BCG) dye binding methoOrdered By: Barry Patel on 02-12-2023 Albumin BCG dye [Mass/Vol] 4.0 g/dL 3.5-5.7 Alkaline phosphatase [Enzyma tic activity/volume] in Serum or PlasmaOrdered By: Barry Patel on 02-12-2023 ALP [Catalytic activity/Vol] 46 U/L 34-104 Aspartate aminotransferase [ Enzymatic activity/volume] in Serum or PlasmaOrdered By: Barry Patel on 02-12-2023 AST [Catalytic activity/Vol] 14 U/L 13-39 Basophils Auto (Bld) [#/Vol] Ordered By: Barry Patel on 02-12-2023 Basophils (Bld) [#/Vol] 0.1 10*3/uL 0.0-0.2 Basophils/100 WBC Auto (Bld) Ordered By: Barry Patel on 02-12-2023 Basophils/100 WBC (Bld) 2.1 % . Bilirubin.total [Mass/volume ] in Serum or PlasmaOrdered By: Barry Patel on 02-12-2023 Bilirubin [Mass/Vol] 0.4 mg/dL 0.3-1.0 [facility] Calcium [Mass/volume] in Ser um or PlasmaOrdered By: Barry Patel on 02-12-2023 Calcium [Mass/Vol] 9.6 mg/dL 8.6-10.3 [facility] Carbon dioxide, total [Moles /volume] in Serum or PlasmaOrdered By: Barry Patel on 02-12-2023 CO2 [Moles/Vol] 24.6 mmol/L 21.0-31.0 [facility] Chloride [Moles/volume] in S dulce or PlasmaOrdered By: Barry Patel on 02-12-2023 Chloride [Moles/Vol] 112 mmol/L 98-107 [facility] Creatinine [Mass/volume] in Serum or PlasmaOrdered By: Barry aPtel on 02-12-2023 Creatinine [Mass/Vol] 0.78 mg/dL 0.60-1.20 [facility] Eosinophils Auto (Bld) [#/Vo l]Ordered By: Barry Patel on 02-12-2023 Eosinophils (Bld) [#/Vol] 0.5 10*3/uL 0.0-0.45 Eosinophils/100 WBC Auto (Bl d)Ordered By: Barry Patel on 02-12-2023 Eosinophils/100 WBC (Bld) 10.5 % . Erythrocyte distribution wid th Auto (RBC) [Ratio]Ordered By: Barry Patel on 02-12-2023 Erythrocyte distribution width (RBC) [Ratio] 14.7 % 11.9-15.3 Globulin Calc (S) [Mass/Vol] Ordered By: Barry Patel on 02-12-2023 Globulin (S) [Mass/Vol] 2.4 g/dL Glucose [Mass/volume] in Ser um or PlasmaOrdered By: Barry Patel on 02-12-2023 Glucose [Mass/Vol] 68 mg/dL 70-100 [facility] Hematocrit Auto (Bld) [Volum e fraction]Ordered By: Barry Patel on 02-12-2023 Hematocrit (Bld) [Volume fraction] 38.2 % 34.0-46.4 Hemoglobin [Mass/volume] in BloodOrdered By: Barry Patel on 02-12-2023 Hemoglobin (Bld) [Mass/Vol] 12.4 g/dL 11.8-15.4 Leukocytes [#/volume] correc ana for nucleated erythrocytes in Blood by Automated counOrdered By: Barry Patel on 02-12-2023 WBC corrected for nucl RBC Auto (Bld) [#/Vol] 4.6 10*3/uL 3.8-11.6 Lymphocytes Auto (Bld) [#/Vo l]Ordered By: Barry Patel on 02-12-2023 Lymphocytes (Bld) [#/Vol] 1.5 10*3/uL 1.00-4.8 Lymphocytes/100 WBC Auto (Bl d)Ordered By: Barry Patel on 02-12-2023 Lymphocytes/100 WBC (Bld) 31.3 % . MCH Auto (RBC) [Entitic mass ]Ordered By: Barry Patel on 02-12-2023 MCH (RBC) [Entitic mass] 29.7 pg 24.7-34.3 MCHC Auto (RBC) [Mass/Vol]Or dered By: Barry Patel on 02-12-2023 MCHC (RBC) [Mass/Vol] 32.5 g/dL 32.0-35.0 [facility] MCV Auto (RBC) [Entitic vol] Ordered By: Barry aPtel on 02-12-2023 MCV (RBC) [Entitic vol] 91.4 fL 80-100 Monocytes Auto (Bld) [#/Vol] Ordered By: Barry Patel on 02-12-2023 Monocytes (Bld) [#/Vol] 0.5 10*3/uL 0.0-0.8 Monocytes/100 WBC Auto (Bld) Ordered By: Barry Patel on 02-12-2023 Monocytes/100 WBC (Bld) 9.9 % . Neutrophils Auto (Bld) [#/Vo l]Ordered By: Barry Patel on 02-12-2023 Neutrophils (Bld) [#/Vol] 2.1 10*3/uL 1.8-7.7 Neutrophils/100 WBC Auto (Bl d)Ordered By: Barry Patel on 02-12-2023 Neutrophils/100 WBC (Bld) 46.2 % . No Panel InformationOrdered By: Barry Patel on 02-12-2023 Estimated GFR (CKD-EPI) > 60.0 mL/Min Pharmacy Creatinine Clearance (Chem N/A Nucleated erythrocytes [Pres ence] in Blood by Automated countOrdered By: Barry Patel on 02-12-2023 Nucleated RBC Auto Ql (Bld) 0.0 /100{WBC} 0-0.5 Platelet mean volume Auto (B ld) [Entitic vol]Ordered By: Barry Patel on 02-12-2023 Platelet mean volume (Bld) [Entitic vol] 8.3 fL 6.3-10.7 Platelets Auto (Bld) [#/Vol] Ordered By: Barry Patel on 02-12-2023 Platelets (Bld) [#/Vol] 287 10*3/uL 150-450 Potassium [Moles/volume] in Serum or PlasmaOrdered By: Barry Patel on 02-12-2023 Potassium [Moles/Vol] 4.9 mmol/L 3.5-5.1 [facility] Protein [Mass/volume] in Ser um or PlasmaOrdered By: Barry Patel on 02-12-2023 Protein [Mass/Vol] 6.4 g/dL 6.4-8.9 [facility] RBC Auto (Bld) [#/Vol]Ordere d By: Barry Patel on 02-12-2023 RBC (Bld) [#/Vol] 4.18 10*6/uL 3.60-5.00 [facility] Serum or plasma albumin/glob ulin mass ratioOrdered By: Barry Patel on 02-12-2023 Albumin/Globulin [Mass ratio] 1.7 {ratio} Serum or plasma anion gap de terminationOrdered By: Barry Patel on 02-12-2023 Anion gap [Moles/Vol] 11.3 mmol/L 6.0-15.0 [facility] Sodium [Moles/volume] in Ser um or PlasmaOrdered By: Barry Patel on 02-12-2023 Sodium [Moles/Vol] 143 mmol/L 136-145 [facility] Urea nitrogen [Mass/volume] in Serum or PlasmaOrdered By: Barry Patel on 02-12-2023 Urea nitrogen [Mass/Vol] 24 mg/dL 7-25 WBC Auto (Bld) [#/Vol]Ordere d By: Barry Patel on 02-12-2023 WBC (Bld) [#/Vol] 4.6 10*3/uL 3.8-11.6 [facility] CBC AUTO DIFFon 11-17-2022 BASO # 0.0 103/ul Normal 0.0-0.1 [facility] Comment on above: Performed By: #### D ATCBC #### [facility] [address] [place] [address] Dr. Jackeline Thakkar Basophils/100 WBC (Bld) 0.8 % Normal 0.2-2.0 [facility] Comment on above: Performed By: #### D ATCBC #### [facility] [address] [place] [address] Dr. Jackeline Thakkar EO # 0.1 103/ul Normal 0.0-0.7 [facility] Comment on above: Performed By: #### D ATCBC #### [facility] [address] [place] [address] Dr. Jackeline Thakkar Eosinophils/100 WBC (Bld) 2.4 % Normal 0.9-7.0 [facility] Comment on above: Performed By: #### D ATCBC #### [facility] [address] [place] [address] Dr. Jackeline Thakkar Erythrocyte distribution width (RBC) [Ratio] 14.4 % Normal 11.0-15.0 [facility] Comment on above: Performed By: #### D ATCBC #### [facility] [address] [place] [address] Dr. Jackeline Thakkar Hematocrit (Bld) [Volume fraction] 40.8 % Normal 36.0-48.0 [facility] Comment on above: Performed By: #### D ATCBC #### [facility] [address] [place] [address] [address] Jackeline Thakkar Hemoglobin (Bld) [Mass/Vol] 13.5 g/dL Normal 12.0-16.0 [facility] Comment on above: Performed By: #### D ATCBC #### [facility] [address] [place] [address] [address] Jackeline Thakkar IG # 0.01 10e3/ul Normal 0.00-0.03 [facility] Comment on above: Performed By: #### D ATCBC #### [facility] [address] [place] [address] Dr. Jackeline Thakkar IG % 0.2 % Normal 0.0-0.5 [facility] Comment on above: Performed By: #### D ATCBC #### [facility] [address] [place] [address] Dr. Jackeline Thakkar LYMPH # 1.4 103/ul Normal 1.2-3.8 [facility] Comment on above: Performed By: #### D ATCBC #### [facility] [address] [place] [address] Dr. Jackeline Thakkar Lymphocytes/100 WBC (Bld) 29.2 % Normal 20.5-60.0 [facility] Comment on above: Performed By: #### D ATCBC #### [facility] [address] [place] [address] Dr. Jackeline Thakkar MCH (RBC) [Entitic mass] 30.1 pg Normal 26.7-34.0 [facility] Comment on above: Performed By: #### D ATCBC #### [facility] [address] [place] [address] [address] Jackeline Thakkar MCHC (RBC) [Mass/Vol] 33.1 g/dL Normal 29.9-35.2 [facility] Comment on above: Performed By: #### D ATCBC #### [facility] [address] [place] [id number] Jackeline Thakkar MCV (RBC) [Entitic vol] 91.1 fL Normal 81.0-99.0 [facility] Comment on above: Performed By: #### D ATCBC #### [facility] [address] [place] [address] [address] Jackeline Thakkar MONO # 0.6 103/ul Normal 0.3-0.8 [facility] Comment on above: Performed By: #### D ATCBC #### [facility] [address] [place] [address] Dr. Jackeline Thakkar Monocytes/100 WBC (Bld) 11.4 % Normal 1.7-12.0 [facility] Comment on above: Performed By: #### D ATCBC #### [facility] [address] [place] [address] Dr. Jackeline Thakkar NEUT # 2.8 103/ul Normal 1.4-6.5 [facility] Comment on above: Performed By: #### D ATCBC #### [facility] [address] [place] [address] Dr. Jackeline Thakkar Neutrophils/100 WBC (Bld) 56.0 % Normal 43.0-75.0 [facility] Comment on above: Performed By: #### D ATCBC #### [facility] [address] [place] [address] Dr. Jackeline Thakkar Platelet mean volume (Bld) [Entitic vol] 9.8 fL Normal 9.5-13.5 [facility] Comment on above: Performed By: #### D ATCBC #### [facility] [address] [place] [address] Dr. Jackeline Thakkar PLT 352 103/ul Normal 150-450 [facility] Comment on above: Performed By: #### D ATCBC #### [facility] [address] [place] [address] Dr. Jackeline Thakkar RBC 4.48 106/ul Normal 4.20-5.40 [facility] Comment on above: Performed By: #### D ATCBC #### [facility] [address] [place] [address] Dr. Jackeline Thakkar WBC 4.9 103/ul Normal 4.0-11.0 [facility] Comment on above: Performed By: #### D ATCBC #### [facility] [address] [place] [address] Dr. Jackeline Thakkar RYLAN - VITAMIN Don 11-17-2022 VIT D 25-OH 70.3 ng/mL Normal [facility] Comment on above: Performed By: #### D SUMMER DATBMP #### [facility] [address] [place] [address] Dr. Jackeline Thakkar VIT D RANGES SEE BELOW Normal [facility] Comment on above: Result Comment: <20 ng/mL Vit D deficient 20 - <30 ng/mL Vit D insufficient 30 - 100 ng/mL Vit D sufficient >100 ng/mL Potential Toxicity Performed By: #### D SUMMER DATBMP #### [facility] [address] [place] [address] Dr. Jackeline Thakkar RYLAN- BMP WITH LIPIDon 2022 Anion gap [Moles/Vol] 13.4 mmol/L Normal [facility] Comment on above: Performed By: #### D RYLAN WHEELERBMP #### [facility] [address] [place] [address] Dr. Jackeline Thakkar Calcium [Mass/Vol] 9.7 mg/dL Normal 8.5-10.1 [facility] Comment on above: Performed By: #### D SUMMER DATBMP #### [facility] [address] [place] [address] Dr. Jackeline Thakkar Chloride [Moles/Vol] 106 mmol/L Normal 98-107 [facility] Comment on above: Performed By: #### D SUMMER DATBMP #### [facility] [address] [place] [address] Dr. Jackeline Thakkar Cholesterol [Mass/Vol] 291 mg/dL Critically high <=200 [facility] Comment on above: Performed By: #### D SUMMER DATBMP #### [facility] [address] [place] [address] [address] Jackeline Thakkar Cholesterol in HDL [Mass/Vol] 70 mg/dL Critically high 40-60 [facility] Comment on above: Performed By: #### D ATMAURATBelle, DATBMP #### [facility] [address] [place] [address] [address] Jackeline Thakkar Cholesterol in LDL [Mass/Vol] 193.6 mg/dL Normal [facility] Comment on above: Performed By: #### D ATMAURATBelle, DATBMP #### [facility] [address] [place] [address] [address] Jackeline Thakkar CO2 [Moles/Vol] 20.9 mmol/L Critically low 21.0-32.0 [facility] Comment on above: Performed By: #### D ATMAURATBelle, DATBMP #### [facility] [address] [place] [address] Dr. Jackeline Thakkar Creatinine [Mass/Vol] 0.75 mg/dL Normal 0.55-1.02 [facility] Comment on above: Performed By: #### D ATJEFF, DATBMP #### [facility] [address] [place] [address] [address] Jackeline Thakkar EGFR-AF UKRAINIAN >60 Normal >=60 [facility] Comment on above: Performed By: #### D ATJEFF, DATBMP #### [facility] [address] [place] [address] [address] Jackeline Thakkar EGFR-NON AF UKRAINIAN >60 Normal >=60 [facility] Comment on above: Performed By: #### D ATMAURATBelle, DATBMP #### [facility] [address] [place] [address] [address] Jackeline Thakkar Glucose [Mass/Vol] 104 mg/dL Normal 74-106 [facility] Comment on above: Performed By: #### D ATVITD, DATBMP #### [facility] [address] [place] [address] [address] Jackeline Thakkar HDL NORMAL > or = 60 mg/dl - LO W CARDIOVASCULAR RISK <40 mg/dl - HIGH CARDIOVASCULAR RISK Normal [facility] Comment on above: Performed By: #### D SUMMER DATBMP #### [facility] [address] [place] [address] [address] Jackeline Thakkar LDL CALC NORMAL SEE BELOW Normal [facility] Comment on above: Result Comment: <100 mg/dl OPTIMAL 100 - 129 mg/dl NEAR OR ABOVE OPTIMAL 130 - 159 mg/dl BORDERLINE HIGH 160 - 189 mg/dl HIGH >190 mg/dl VERY HIGH Performed By: #### D SUMMER DATBMP #### [facility] [address] [place] [address] [address] Jackeline Thakkar Potassium [Moles/Vol] 4.3 mmol/L Normal 3.5-5.1 [facility] Comment on above: Performed By: #### D SUMMER, DATBMP #### [facility] [address] [place] [address] [address] Jackeline Thakkar Sodium [Moles/Vol] 136 mmol/L Normal 136-145 [facility] Comment on above: Performed By: #### D SUMMER DATBMP #### [facility] [address] [place] [address] [address] Jackeline Thakkar Triglyceride [Mass/Vol] 137 mg/dL Normal <=150 [facility] Comment on above: Performed By: #### D SUMMER DATBMP #### [facility] [address] [place] [address] [address] Jackeline Thakkar Urea nitrogen [Mass/Vol] 30.0 mg/dL Critically high 7.0-18.0 [facility] Comment on above: Performed By: #### D SUMMER DATBMP #### [facility] [address] [place] [address] [address] Jackeline Thakkar Urea nitrogen/Creatinine [Mass ratio] 40.0 mg/mg Normal [facility] Comment on above: Performed By: #### D SUMMER, DATBMP #### [facility] [address] [place] [address] [address] Jackeline Thakkar VLDL CALC 27.4 mg/dL Normal [facility] Comment on above: Performed By: #### D ATVITD, DATBMP #### [facility] [address] [place] [address] [address] Jackeline Thakkar XR hip RT min 2V(w/wo pelvis )*on 10-29-2022 XR hip RT min 2V(w/wo pelvis)* [facility] Other XR hip RT min 2V(w/wo pelvis)* [facility] Other XR hip RT min 2V(w/wo pelvis)* [address] [place] [address] [employer] Other XR hip RT min 2V(w/wo pelvis)* [place] [address] [employer] Other XR hip RT min 2V(w/wo pelvis)* XRay Report [employer] Other XR hip RT min 2V(w/wo pelvis)* Signed [employer] Other XR hip RT min 2V(w/wo pelvis)* Patient: Tiana Louis MR#: [id number] [facility] Other XR hip RT min 2V(w/wo pelvis)* : 1945 Acct:[id number] [employer] Other XR hip RT min 2V(w/wo pelvis)* Age/Sex: 77 / F ADM Date: 10/29/22 [employer] Other XR hip RT min 2V(w/wo pelvis)* Loc: [facility] Room: Type: [facility] [employer] Other XR hip RT min 2V(w/wo pelvis)* Attending Dr: Barry Valenzuela MD [facility] Other XR hip RT min 2V(w/wo pelvis)* Copies to: Barry Valenzuela MD [employer] Other XR hip RT min 2V(w/wo pelvis)* Ordering Provider: Barry Valenzuela MD [employer] Other XR hip RT min 2V(w/wo pelvis)* Date of Service: 10/29/22 [employer] Other XR hip RT min 2V(w/wo pelvis)* XR/XR hip RT min 2V(w/wo pelvis)*: Bilateral sacroiliitis [employer] Other XR hip RT min 2V(w/wo pelvis)* RIGHT HIP - 2 views: [employer] Other XR hip RT min 2V(w/wo pelvis)* CLINICAL HISTORY: Low back pain radiating into right hip and groin. 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 Please note that the femoral hardware is incompletely visualized on today's study. [employer] Other XR hip RT min 2V(w/wo pelvis)* Additional hardware is seen at the lumbosacral junction without evidence of hardware complication. [employer] Other XR hip RT min 2V(w/wo pelvis)* Degenerative changes are noted involving the SI joints. Left hip appears unremarkable. No acute [employer] Other XR hip RT min 2V(w/wo pelvis)* bony process. [employer] Other XR hip RT min 2V(w/wo pelvis)* XR/XR hip RT min 2V(w/wo pelvis)* [employer] Other XR hip RT min 2V(w/wo pelvis)* IMPRESSION: [employer] Other XR hip RT min 2V(w/wo pelvis)* NO ACUTE BONY PROCESS OR EVIDENCE OF HARDWARE COMPLICATION.. [employer] Other XR hip RT min 2V(w/wo pelvis)* Impression dictated by: Mir Delong Jr., D.O.10/29/2022 3:09 PM [facility] Other XR hip RT min 2V(w/wo pelvis)* Dictation Location: [facility]14 [facility] Other XR hip RT min 2V(w/wo pelvis)* Transcribed By: PWS 10/29/22 1505 [employer] Other XR hip RT min 2V(w/wo pelvis)* Dictated By: Mir Delong Jr, DO 10/29/22 1509 [facility] Other XR hip RT min 2V(w/wo pelvis)* Signed By: [employer] Other XR hip RT min 2V(w/wo pelvis)* 10/29/22 1722 [employer] Other Creatinine (Bld) [Mass/Vol]O rdered By: Benigno Kennedy on 08-27-2022 Creatinine [Mass/Vol] 0.7 mg/dL 0.6-1.3 [facility] Comment on above: ER/ESD physician is notified/shown all ISTAT results.Critical values may be confirmed by laboratory testing ifdeemed necessary by ER attending doctor. No Panel InformationOrdered By: Benigno Kennedy on 08-27-2022 POC Estimated GFR > 60 Comment on above: GFR estimated refere nce range: According to KDOQI guidelines, <60 ml/min/1.73m2 is sufficient to diagnose a patient with chronic kidney disease. POC Estimated GFR Non- Amer > 60 TSHon 06-22-2022 TSH 2.766 uIU/mL Normal 0.358-3.740 [facility] Comment on above: Performed By: #### T #### [facility] [address] [address] [address] Jackeline Thakkar VIT D 25-OH [facility]on 2021 Vitamin D, 25-Hydroxy 50.3 ng/mL Normal 30.0-100.0 [facility] Comment on above: Result Comment: Shakira min D deficiency has been defined by the [place] [employer] and an Endocrine Society practice guideline as a level of serum 25-OH vitamin D less than 20 ng/mL (1,2). The Endocrine Society went on to further define vitamin D insufficiency as a level between 21 and 29 ng/mL (2). 1. IOM ([place] [employer]). 2010. Dietary reference intakes for calcium and D. [place]: The National Academies Press. 2. Lolly MF, Raven ESTES, Kitty RAMACHANDRAN, et al. Evaluation, treatment, and prevention of vitamin D deficiency: an Endocrine Society clinical practice guideline. JCEM. 2010; 96(7):1911-30. Performed By: #### V ITADLC #### [facility] [address] [place] [address] Dr. Jackeline Thakkar PROF CHEM 8 (BAS METB)on Anion gap [Moles/Vol] 12.3 mmol/L Normal [facility] Comment on above: Performed By: #### B MP #### [facility] [address] [address] [address] Jackeline Thakkar Calcium [Mass/Vol] 9.0 mg/dL Normal 8.5-10.1 [facility] Comment on above: Performed By: #### B MP #### [facility] [address] [address] [address] Jackeline Thakkar Chloride [Moles/Vol] 106 mmol/L Normal 98-107 [facility] Comment on above: Performed By: #### B MP #### [facility] [address] [address] [address] Jackeline Thakkar CO2 [Moles/Vol] 26.5 mmol/L Normal 21.0-32.0 [facility] Comment on above: Performed By: #### B MP #### [facility] [address] [address] [address] Jackeline Thakkar Creatinine [Mass/Vol] 0.83 mg/dL Normal 0.55-1.02 [facility] Comment on above: Performed By: #### B MP #### [facility] [address] [place] [address] Dr. Jackeline Thakkar EGFR-AF UKRAINIAN >60 Normal >=60 [facility] Comment on above: Performed By: #### B MP #### [facility] [address] [address] [address] Jackeline Thakkar EGFR-NON AF UKRAINIAN >60 Normal >=60 [facility] Comment on above: Performed By: #### B MP #### [facility] [address] [address] [address] Jackeline Thakkar Glucose [Mass/Vol] 92 mg/dL Normal 74-106 [facility] Comment on above: Performed By: #### B MP #### [facility] [address] [place] [address] Dr. Jackeline Thakkar Potassium [Moles/Vol] 3.8 mmol/L Normal 3.5-5.1 [facility] Comment on above: Performed By: #### B MP #### [facility] [address] [place] [address] Dr. Jackeline Thakkar Sodium [Moles/Vol] 141 mmol/L Normal 136-145 [facility] Comment on above: Performed By: #### B MP #### [facility] [address] [place] [address] Dr. Jackeline Thakkar Urea nitrogen [Mass/Vol] 13.0 mg/dL Normal 7.0-18.0 [facility] Comment on above: Performed By: #### B MP #### [facility] [address] [place] [address] Dr. Jackeline Thakkar Urea nitrogen/Creatinine [Mass ratio] 15.7 mg/mg Normal [facility] Comment on above: Performed By: #### B MP #### [facility] [address] [place] [address] Dr. Jackeline Thakkar CNOVon 07-16-2018 CNOV Office Visit (PULMAV) TIANA BOYLE ([id number]) 1945 [facility] Time Provider Department04/11/18 9:30 AM RENATA YADAV [...] course of antibiotics. She wasalso seen by Yarn Sizer Dr. CARRASCO, I have reviewed his notes( [...] itShe is retired, lives with her in [place]. sHE used to work in [employer], taking/[employer]. 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891]Order(s):PULMI OTTONIEL FLEXHALER 180 mcg/actuation aepbInhale 1 Puff as instructed twice daily.Disp: 1 InhalerRfl: 3 SPIROMETRY WITH DILATOR IF OBSTRUCTED [[id number]] Order #: [id number] FUTURE LUNG DIFFUSION CAPACITY (DLCO) [[id number]] Order #: [id number] FUTURE roflumilast (DALIRESP) 250 mcg tabTake 250 [...] on file.Follow-up and Disposition History RecordedEncounter Number: [id number] Status:Closed by RENATA YADAV MD on 04/11/18 [facility]IA[facility] ([id number]) 1945 [facility] Time Provider Department04/11/18 RENATA YADAV PULCHAYOV During your visit today, we recorded the following information about you:Kiesha Hairston, RN, RN 04/11/2018 3:38 PM SignedPt just seen in the office todayCalling to inform the prescriptions for Pulmicort and Roflumilast never made itto her PharmacyAsking if these can be RESENT pleaseVerified correct pharmacy is [facility] needed pt's call back # [phone] Andrews Ma 04/11/2018 3:56 PM SignedJust completed [...] SignedCalled and informed pt of below message.Kay Beto Smart As of Date: 04/11/2018(No Known Allergies)Date [...] by RENATA YADAV MD on 04/12/18 Normal [facility] PROGRESSon 04-11-2018 Protein HNO ID: [id number]: Renata SuriService: (none)Author Type: PhysicianType: Progress NotesFiled: [...] course ofantibiotics. She was also seen by Yarn Sizer Dr. CARRASCO, I havereviewed his notes( IGE [...] breathing, no associatedchest pain or angina likes symptomsBia was diagnosed with BRET earlier this year and started on C Pap shereports compliance to itShe is retired, lives with her in [place]. sHE used to work in [employer], [employer]. 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 Normal [facility] SR-CT CHEST W CON IMPORTon 0 12-29-2017 SR-CT CHEST W CON IMPORT Images were obtained outside of [facility] [id number] Normal [facility] OT-XR CHEST 2 V IMPORTon OT-XR CHEST 2 V IMPORT Images were obtai donald outside of [facility] [id number] Normal [facility] OT-XR CHEST 2 V IMPORTon OT-XR CHEST 2 V IMPORT Images were obtai donald outside of [facility] [id number] Normal [facility] OT-XR CHEST 2 V IMPORTon OT-XR CHEST 2 V IMPORT Images were obtai donald outside of [facility] [id number] Normal [facility] Vital Signs Date Time Vital Sign Value Performing Clinician Facility 06-26-2024 10:59-0400 Body height 165.1 cm DO Chucho Ball Work Phone: 06-26-2024 10:59-0400 Body mass index (BMI) [Ratio] 31.2 kg/m2 DO Chucho Ball Work Phone: 06-26-2024 10:59-0400 Body weight 85.27 kg DO Chucho Ball Work Phone: 06-26-2024 10:59-0400 Diastolic blood pressure 87 mm[Hg] DO Chucho Ball Work Phone: 06-26-2024 10:59-0400 Heart rate 57 /min DO Chucho Ball Work Phone: 06-26-2024 10:59-0400 Respiratory rate 12 /min DO Chucho Ball Work Phone: 06-26-2024 10:59-0400 Systolic blood pressure 138 mm[Hg] DO Chucho Ball Work Phone: 03-31-2024 09:32-0400 Body height 165.1 cm [facility] 03-31-2024 09:32-0400 Body mass index (BMI) [Ratio] 30.9 kg/m2 03-31-2024 09:32-0400 Body weight 84.42 kg [facility] 03-31-2024 09:32-0400 Diastolic blood pressure 73 mm[Hg] 03-31-2024 09:32-0400 Heart rate 52 /min [facility] 03-31-2024 09:32-0400 Respiratory rate 16 /min [facility] 03-31-2024 09:32-0400 Systolic blood pressure 147 mm[Hg] 01-14-2024 09:45-0400 Body height 165.1 cm DO Chucho Ball Work Phone: 01-14-2024 09:45-0400 Body mass index (BMI) [Ratio] 30.4 kg/m2 DO Chucho Ball Work Phone: 01-14-2024 09:45-0400 Body weight 82.8 kg DO Chucho Ball Work Phone: 01-14-2024 09:45-0400 Diastolic blood pressure 88 mm[Hg] DO Chucho Ball Work Phone: 01-14-2024 09:45-0400 Heart rate 67 /min DO Chucho Ball Work Phone: 01-14-2024 09:45-0400 Respiratory rate 20 /min DO Chucho Ball Work Phone: 01-14-2024 09:45-0400 Systolic blood pressure 157 mm[Hg] DO Chucho Ball Work Phone: 12-21-2023 10:46-0400 Body height 165.1 cm DO Chucho Ball Work Phone: 12-21-2023 10:46-0400 Body mass index (BMI) [Ratio] 30.4 kg/m2 DO Chucho Ball Work Phone: 12-21-2023 10:46-0400 Body weight 83 kg DO Chucho Ball Work Phone: 12-21-2023 10:46-0400 Diastolic blood pressure 83 mm[Hg] DO Chucho Ball Work Phone: 12-21-2023 10:46-0400 Heart rate 69 /min DO Chucho Ball Work Phone: 12-21-2023 10:46-0400 Respiratory rate 16 /min DO Chucho Ball Work Phone: 12-21-2023 10:46-0400 Systolic blood pressure 158 mm[Hg] DO Chucho Ball Work Phone: 11-03-2023 08:00-0500 Body height 165.1 cm Coy Eren II Other [facility] [employer] Other 11-03-2023 08:00-0500 Body mass index (BMI) [Ratio] 30.45 kg/m2 Coy Eren II Other [employer] Other 11-03-2023 08:00-0500 Body weight 83.01 kg Coy Eren II Other [facility] [employer] Other 10-04-2023 13:30-0500 Body height 165.1 cm DO Chucho Ball Work Phone: 10-04-2023 13:30-0500 Body weight 83 kg DO Chucho Ball Work Phone: 10-04-2023 13:30-0500 Diastolic blood pressure 74 mm[Hg] DO Chucho Ball Work Phone: 10-04-2023 13:30-0500 Systolic blood pressure 130 mm[Hg] DO Chucho Ball Work Phone: 02-24-2023 11:50-0400 Diastolic blood pressure 81 mm[Hg] DO Chucho Ball Work Phone: 02-24-2023 11:50-0400 Heart rate 62 /min DO Chucho Ball Work Phone: 02-24-2023 11:50-0400 Respiratory rate 16 /min DO Chucho Ball Work Phone: 02-24-2023 11:50-0400 SaO2% (BldA) [Mass fraction] 95 % DO Chucho Ball Work Phone: 02-24-2023 11:50-0400 Systolic blood pressure 154 mm[Hg] DO Chucho Ball Work Phone: 02-24-2023 11:35-0400 Inhaled oxygen flow rate 1 L/min DO Chucho Ball Work Phone: 02-24-2023 10:54-0400 Body temperature 97 [degF] DO Chucho Ball Work Phone: 02-24-2023 08:22-0400 Body height 160.02 cm DO Chucho Ball Work Phone: 02-24-2023 08:22-0400 Body mass index (BMI) [Ratio] 32.9 kg/m2 DO Chucho Ball Work Phone: 02-24-2023 08:22-0400 Body weight 84.4 kg DO Chucho Ball Work Phone: 02-09-2023 10:00-0400 Body height 165.1 cm Barry Olexa Other [employer] Other 01-25-2023 14:45-0400 Body height 165.1 cm Barry Olexa Other [employer] Other 01-25-2023 14:45-0400 Body mass index (BMI) [Ratio] 30.78 kg/m2 Barry Olexa Other [employer] Other 01-25-2023 14:45-0400 Body weight 83.92 kg Barry Olexa Other [employer] Other 12-14-2022 11:00-0400 Body height 165.1 cm Chucho Ball Other [employer] Other 12-14-2022 11:00-0400 Body mass index (BMI) [Ratio] 30.82 kg/m2 Chucho Ball Other [employer] Other 12-14-2022 11:00-0400 Body weight 84.01 kg Chucho Ball Other [employer] Other 12-14-2022 11:00-0400 Diastolic blood pressure 84 mm[Hg] Chucho Ball Other [employer] Other 12-14-2022 11:00-0400 Respiratory rate 20 /min Chucho Ball Other [employer] Other 12-14-2022 11:00-0400 Systolic blood pressure 122 mm[Hg] Chucho Ball Other [employer] Other 10-29-2022 11:30-0500 Body height 165.1 cm Barry Negritaer Other [employer] Other 10-29-2022 11:30-0500 Body mass index (BMI) [Ratio] 30.78 kg/m2 Barry Felter Other [employer] Other 10-29-2022 11:30-0500 Body weight 83.92 kg Barry Felter Other [employer] Other 10-23-2022 10:40-0500 Body height 165.1 cm Benigno Kennedy Other [employer] Other 10-23-2022 10:40-0500 Body mass index (BMI) [Ratio] 30.78 kg/m2 Benigno Kennedy Other [employer] Other 10-23-2022 10:40-0500 Body weight 83.92 kg Benigno Kennedy Other [employer] Other 08-27-2022 07:00-0500 Body height 162.56 cm DO Chucho Ball Work Phone: 08-27-2022 07:00-0500 Body weight 81.64 kg DO Chucho Ball Work Phone: 08-18-2022 11:20-0500 Body height 165.1 cm Benigno Kennedy Other [employer] Other 03-11-2022 12:00-0400 Body height 165.1 cm Barry Felter Other [employer] Other 03-11-2022 12:00-0400 Body mass index (BMI) [Ratio] 30.28 kg/m2 Barry Felter Other [employer] Other 03-11-2022 12:00-0400 Body weight 82.56 kg Barry Felter Other [employer] Other 02-17-2022 12:20-0400 Body height 165.1 cm Benigno Kennedy Other [employer] Other 02-17-2022 12:20-0400 Body mass index (BMI) [Ratio] 30.28 kg/m2 Benigno Kennedy Other [employer] Other 02-17-2022 12:20-0400 Body weight 82.56 kg Benigno Kennedy Other [employer] Other 01-05-2022 10:45-0400 Body height 165.1 cm Barry Felter Other [employer] Other 01-05-2022 10:45-0400 Body mass index (BMI) [Ratio] 31.28 kg/m2 Barry Felter Other [employer] Other 01-05-2022 10:45-0400 Body weight 85.28 kg Barry Felter Other [employer] Other 11-07-2021 09:20-0500 Body height 165.1 cm Benigno Kennedy Other [employer] Other 11-07-2021 09:20-0500 Body mass index (BMI) [Ratio] 31.45 kg/m2 Benigno Kennedy Other [employer] Other 11-07-2021 09:20-0500 Body weight 85.73 kg Benigno Kennedy Other [employer] Other 11-03-2021 11:15-0500 Body height 165.1 cm Barry Felter Other [employer] Other 11-03-2021 11:15-0500 Body mass index (BMI) [Ratio] 31.45 kg/m2 Barry Felter Other [employer] Other 11-03-2021 11:15-0500 Body weight 85.73 kg Barry Felter Other [employer] Other 09-18-2021 16:20-0500 Body height 165.1 cm Benigno Kennedy Other [employer] Other 09-18-2021 16:20-0500 Body mass index (BMI) [Ratio] 31.61 kg/m2 Benigno Kennedy Other [employer] Other 09-18-2021 16:20-0500 Body weight 86.18 kg Benigno Kennedy Other [employer] Other 09-18-2021 16:20-0500 Diastolic blood pressure 75 mm[Hg] Benigno Kennedy Other [employer] Other 09-18-2021 16:20-0500 Systolic blood pressure 129 mm[Hg] Benigno Kennedy Other [employer] Other 09-11-2021 11:45-0500 Body height 165.1 cm Barry Felter Other [employer] Other 09-11-2021 11:45-0500 Body mass index (BMI) [Ratio] 31.61 kg/m2 Barry Felter Other [employer] Other 09-11-2021 11:45-0500 Body weight 86.18 kg Barry Felter Other [employer] Other 09-02-2021 15:00-0500 Body height 165.1 cm Barry Felter Other [employer] Other 09-02-2021 15:00-0500 Body mass index (BMI) [Ratio] 31.61 kg/m2 Barry Reesdave Other [employer] Other 09-02-2021 15:00-0500 Body weight 86.18 kg Barry Reesdave Other [employer] Other 08-14-2021 17:30-0500 Body height 165.1 cm Benigno Kennedy Other [employer] Other 08-14-2021 17:30-0500 Body mass index (BMI) [Ratio] 29.95 kg/m2 Benigno Kennedy Other [employer] Other 08-14-2021 17:30-0500 Body weight 81.65 kg Benigno Kennedy Other [employer] Other Encounters Encounter Date Encounter Type Care Provider Facility Start: 06-26-2024 End: 06-26-2024 ambulatory DO Chucho Ball Work Phone: [facility] Work Phone: Start: 06-26-2024 End: 06-26-2024 Patient encounter procedure DO Chucho Ball Work Phone: [facility] Work Phone: Start: 06-24-2024 Patient encounter procedure DO Chucho Ball Work Phone: Start: 06-21-2024 End: 06-21-2024 ambulatory DO Chucho Ball Work Phone: [facility] Work Phone: Start: 06-21-2024 End: 06-21-2024 Patient encounter procedure DO Chucho Ball Work Phone: [facility] Work Phone: Start: 06-05-2024 End: 06-05-2024 ambulatory DO Chucho Ball Work Phone: [facility] Work Phone: Start: 06-05-2024 End: 06-05-2024 Patient encounter procedure DO Chucho Manjit Work Phone: [facility] Work Phone: Start: 05-15-2024 End: 05-15-2024 ambulatory DO Chucho Saravia Work Phone: [facility] Work Phone: Start: 05-15-2024 End: 05-15-2024 Patient encounter procedure DO Chucho Saravia Work Phone: [facility] Work Phone: Start: 05-08-2024 End: 05-08-2024 ambulatory DO Chucho Saravia Work Phone: [facility] Work Phone: Start: 05-08-2024 End: 05-08-2024 Patient encounter procedure DO Chucho Saravia Work Phone: [facility] Work Phone: Start: 04-12-2024 End: 04-12-2024 ambulatory DO Chucho Saravia Work Phone: [facility] Work Phone: Start: 04-12-2024 End: 04-12-2024 Patient encounter procedure [facility] Work Phone: Start: 04-10-2024 End: 04-10-2024 ambulatory [facility] Work Phone: Start: 04-10-2024 End: 04-10-2024 Patient encounter procedure [facility] Work Phone: Start: 03-31-2024 End: 03-31-2024 ambulatory [facility] Work Phone: Start: 03-31-2024 End: 03-31-2024 Patient encounter procedure [facility] Work Phone: Start: 03-16-2024 End: 03-16-2024 ambulatory AMISHA MUNOZ Not Available Start: 03-13-2024 End: 03-13-2024 ambulatory [facility] Work Phone: Start: 03-13-2024 End: 03-13-2024 Patient encounter procedure [facility] Work Phone: Start: 02-28-2024 End: 02-28-2024 ambulatory [facility] Work Phone: Start: 02-28-2024 End: 02-28-2024 Patient encounter procedure [facility] Work Phone: Start: 02-10-2024 End: 02-10-2024 Patient encounter procedure [facility] Work Phone: Start: 01-31-2024 Non-patient / Non-visit [facility] Work Phone: Start: 01-14-2024 End: 01-14-2024 ambulatory DO Chucho Ball Work Phone: [facility] Work Phone: Start: 01-14-2024 End: 01-14-2024 Patient encounter procedure DO Chucho Ball Work Phone: [facility] Work Phone: Start: 01-12-2024 End: 01-12-2024 ambulatory DO Chucho Ball Work Phone: [facility] Work Phone: Start: 01-12-2024 End: 01-12-2024 Patient encounter procedure DO Chucho Ball Work Phone: [facility] Work Phone: Start: 01-10-2024 End: 01-10-2024 ambulatory ESTHER PALMER Not Available Start: 01-05-2024 End: 01-05-2024 ambulatory DO Chucho Ball Work Phone: [facility] Work Phone: Start: 01-05-2024 End: 01-05-2024 Patient encounter procedure DO Chucho Ball Work Phone: [facility] Work Phone: Start: 01-05-2024 Non-patient / Non-visit DO Abhishek valderrama Ball Work Phone: [facility] Work Phone: Start: 01-04-2024 End: 01-04-2024 ambulatory AMISHA MUNOZ Not Available Start: 12-21-2023 End: 12-21-2023 ambulatory DO Chucho Ball Work Phone: [facility] Work Phone: Start: 12-21-2023 End: 12-21-2023 Patient encounter procedure DO Chucho Ball Work Phone: [facility] Work Phone: Start: 12-13-2023 End: 12-13-2023 ambulatory DO Chucho Ball Work Phone: [facility] Work Phone: Start: 12-13-2023 End: 12-13-2023 Patient encounter procedure DO Chucho Ball Work Phone: [facility] Work Phone: Start: 12-09-2023 End: 12-09-2023 ambulatory DO Chucho Ball Work Phone: [facility] Work Phone: Start: 12-09-2023 End: 12-09-2023 Patient encounter procedure DO Chucho Ball Work Phone: [facility] Work Phone: Start: 12-01-2023 End: 12-01-2023 Patient encounter procedure DO Chucho Ball Work Phone: [facility] Work Phone: Start: 12-01-2023 Non-patient / Non-visit DO Abhishek Saravia Work Phone: [facility] Work Phone: Start: 11-25-2023 End: 11-25-2023 Patient encounter procedure DO Chucho Saravia Work Phone: [facility] Work Phone: Start: 11-11-2023 Non-patient / Non-visit DO Abhishek Saravia Work Phone: [facility] Work Phone: Start: 11-09-2023 End: 11-09-2023 ambulatory Chucho Saravia Other [employer] Other Start: 11-09-2023 Telephone encounter Chucho Manjit SALGADO [facility] Start: 11-03-2023 Office outpatient vi sit 25 minutes Coy Cassidy II [facility] Start: 11-03-2023 End: 11-03-2023 Patient encounter procedure DO Chucho Saravia Work Phone: [facility] Start: 11-03-2023 End: 11-03-2023 ambulatory DO Chucho Saravia Work Phone: [facility] Work Phone: Start: 10-11-2023 End: 10-11-2023 ambulatory Chucho Saravia Other [employer] Other Start: 10-11-2023 Telephone encounter Chucho Saravia FP [facility] Start: 10-04-2023 End: 10-04-2023 Patient encounter procedure DO Chucho Saravia Work Phone: [facility] Work Phone: Start: 09-24-2023 End: 09-24-2023 ambulatory AMISHA MUNOZ Not Available Start: 07-13-2023 Office outpatient vi sit 15 minutes Barry Patel [facility] Start: 07-13-2023 End: 07-13-2023 Patient encounter procedure DO Chucho Ball Work Phone: [facility] Start: 07-13-2023 End: 07-13-2023 ambulatory DO Chucho Ball Work Phone: [facility] Work Phone: Start: 07-09-2023 End: 07-09-2023 ambulatory Chucho Ball Other [employer] Other Start: 07-09-2023 Telephone encounter Chucho Bishop [facility] Start: 07-08-2023 End: 07-08-2023 Patient encounter procedure DO Chucho Ball Work Phone: [facility] Work Phone: Start: 07-08-2023 End: 07-08-2023 ambulatory DO Chucho Ball Work Phone: [facility] Work Phone: Start: 07-06-2023 End: 07-06-2023 ambulatory Barry Valenzuela Other [employer] Other Start: 07-06-2023 Office outpatient vi sit 25 minutes Barry Valenzuela [facility] [place] [facility] Start: 07-06-2023 Telephone encounter Barry SALGADO [facility] [place] [facility] Start: 06-25-2023 End: 06-25-2023 ambulatory Barry Patel Facility: Start: 06-25-2023 Registered Recurring DO Benjam in [facility] Work Phone: [facility] [place] Start: 06-08-2023 Office outpatient vi sit 15 minutes Barry Patel [facility] Start: 06-08-2023 End: 06-08-2023 Patient encounter procedure DO Chucho Ball Work Phone: [facility] Start: 06-08-2023 End: 06-08-2023 ambulatory DO Chucho Ball Work Phone: [facility] Work Phone: Start: 06-07-2023 Registered Recurring DO Benjam in [facility] Work Phone: [facility] [place] [facility] Start: 05-18-2023 End: 05-18-2023 ambulatory Chucho Ball Other [employer] Other Start: 05-18-2023 Telephone encounter Chucho Ball FP [facility] Start: 05-14-2023 End: 05-14-2023 ambulatory Chucho Ball Other [employer] Other Start: 05-14-2023 Telephone encounter Chucho Saravia FP [facility] Start: 04-12-2023 Postop follow up vis it related to original px Barry [facility] Start: 04-12-2023 End: 04-12-2023 ambulatory DO Chucho Ball Work Phone: [facility] Work Phone: Start: 04-12-2023 End: 04-12-2023 Patient encounter procedure DO Chucho Ball Work Phone: [facility] Start: 03-08-2023 End: 03-08-2023 Patient encounter procedure DO Chucho Ball Work Phone: [facility] Start: 03-02-2023 End: 03-02-2023 ambulatory Chucho Ball Other [facility] Other Start: 03-02-2023 Telephone encounter Chucho Ball [facility] Start: 02-26-2023 End: 02-26-2023 ambulatory Chucho Ball Other [facility] Other Start: 02-26-2023 Office outpatient vi sit 15 minutes Chucho Ball [facility] Start: 02-26-2023 Telephone encounter Chucho Saravia FP [facility] Start: 02-25-2023 End: 02-25-2023 ambulatory Barry Patel Other [facility] Other Start: 02-25-2023 Telephone encounter Barry Patel [facility] Start: 02-24-2023 End: 02-24-2023 Admission to same day surgery center DO Chucho Saravia Work Phone: [facility] [address] Start: 02-24-2023 End: 02-24-2023 ambulatory DO Chucho Saravia Work Phone: [facility] Work Phone: Start: 02-23-2023 End: 02-23-2023 ambulatory Barry Vegaxa Other [facility] Other Start: 02-23-2023 Telephone encounter Barry Jorge [facility] Start: 02-12-2023 End: 02-12-2023 Patient encounter procedure DO Chucho Saravia Work Phone: [facility] [place]-Pre-Surgical Testing Work Phone: Start: 02-09-2023 End: 02-09-2023 ambulatory Barry Patel Other [facility] Other Start: 02-09-2023 Encounter for other preprocedural examination Barry Patel [facility] Start: 02-09-2023 Office outpatient vi sit 25 minutes Barry Vegaxa [facility] Start: 02-05-2023 End: 02-05-2023 ambulatory DO Chucho Saravia Work Phone: [facility] Work Phone: Start: 02-05-2023 End: 02-05-2023 Patient encounter procedure DO Chucho Saravia Work Phone: [facility] [place]-MRI [address] Work Phone: Start: 02-01-2023 End: 02-01-2023 ambulatory Barry Vegacandace Other [facility] Other Start: 02-01-2023 Telephone encounter Barry Patel [facility] Start: 01-25-2023 Office outpatient vi sit 25 minutes Barry Patel [facility] Start: 01-25-2023 End: 01-25-2023 ambulatory DO Chucho Saravia Work Phone: [facility] Work Phone: Start: 01-25-2023 End: 01-25-2023 Patient encounter procedure DO Chucho Ball Work Phone: [facility]-XRay [facility] Start: 01-18-2023 End: 01-18-2023 ambulatory Chucho Saravia Other [facility] Other Start: 01-18-2023 Telephone encounter Chucho SALGADO [facility] Start: 12-24-2022 End: 12-24-2022 ambulatory Coy Cassidy II Other [facility] Other Start: 12-24-2022 Telephone encounter Coy WOODS [facility] Start: 12-14-2022 End: 12-14-2022 ambulatory Chucho Saravia Other [facility] Other Start: 12-14-2022 Office outpatient vi sit 15 minutes Chucho Saravia [employer] [facility] [employer] [facility] [employer] [facility] Start: 12-07-2022 End: 12-07-[address] CHUCHO SARAVIA Facility:[facility]1 Start: 12-03-2022 End: 12-03-2022 ambulatory Coy Cassidy II Other [facility] Other Start: 12-03-2022 Telephone encounter Coy Cassidy II [facility] Start: 11-30-2022 End: 11-30-2022 ambulatory Chucho Saravia Other [facility] Other Start: 11-30-2022 Telephone encounter Chucho Bishop [facility] Start: 11-26-2022 End: 11-26-2022 Patient encounter procedure DO Chucho Saravia Work Phone: [facility] Start: 11-20-2022 End: 11-20-2022 ambulatory Barry Valenzuela Other [facility] Other Start: 11-20-2022 Telephone encounter Barry Bishop [facility] Start: 11-19-2022 End: 11-19-2022 ambulatory Barry Valenzuela Other [facility] Other Start: 11-19-2022 Office outpatient vi sit 15 minutes Barry Valenzuela [facility] Start: 11-18-2022 End: 11-18-2022 ambulatory Chucho Saravia Other [facility] Other Start: 11-18-2022 Telephone encounter Chucho Bishop [facility] Start: 11-17-2022 End: 11-18-[address] NONE LISTED REQUEST Facility: Start: 11-17-2022 Nursing evaluation o f patient and report Chucho Saravia [facility] Start: 11-09-2022 (Procedure) Liane Valenzuela [facility] Start: 11-09-2022 End: 11-09-2022 ambulatory Barry Valenzuela Other [facility] Other Start: 10-29-2022 Office outpatient vi sit 25 minutes Barry Valenzuela [facility] Start: 10-29-2022 Telephone encounter Barry Bishop [facility] Start: 10-29-2022 End: 10-29-2022 ambulatory DO Chucho Saravia Work Phone: [facility] Work Phone: Start: 10-29-2022 End: 10-29-2022 Patient encounter procedure DO Chucho Saravia Work Phone: [facility] Start: 10-27-2022 End: 10-27-2022 ambulatory Radha Kennedy Other [facility] Other Start: 10-27-2022 Telephone encounter Radha Marcia [facility] Start: 10-23-2022 End: 10-23-2022 ambulatory Benigno Kennedy Other [facility] Other Start: 10-23-2022 Office outpatient vi sit 15 minutes Benigno Kennedy [facility] Start: 10-22-2022 End: 10-22-2022 ambulatory Chucho Saravia Other [facility] Other Start: 10-22-2022 Telephone encounter Chucho Saravia [facility] Start: 08-27-2022 End: 08-27-2022 ambulatory DO Chucho Saravia Work Phone: [facility] Work Phone: Start: 08-27-2022 End: 08-27-2022 Patient encounter procedure DO Chucho Saravia Work Phone: [facility]-MRI [address] Start: 08-18-2022 End: 08-18-2022 ambulatory Benigno Kennedy Other [facility] Other Start: 08-18-2022 Office outpatient vi sit 15 minutes Benigno Kennedy [facility] Start: 08-12-2022 End: 08-12-2022 ambulatory DO Chucho Saravia Work Phone: [facility] Work Phone: Start: 08-12-2022 End: 08-12-2022 Patient encounter procedure DO Chucho Saravia Work Phone: [facility]-XRay [address] [place] Start: 08-04-2022 End: 08-04-2022 ambulatory Barry Valenzuela Other [facility] Other Start: 08-04-2022 Office outpatient vi sit 25 minutes Barry Valenzuela [facility] [place] [facility] Start: 07-07-2022 End: 07-07-2022 ambulatory DO Chucho Saravia Work Phone: [facility] Work Phone: Start: 07-07-2022 End: 07-07-2022 Patient encounter procedure DO Chucho Saravia Work Phone: [facility] Start: 06-22-2022 Adult health examination Jose Angel Saravia Other [facility] Other Start: 06-22-2022 End: 06-23-[address] CHUCHO SARAVIA Facility:[facility] Start: 05-26-2022 End: 05-26-[address] CHUCHO SARAVIA Facility:[facility] Start: 04-28-2022 End: 04-29-[address] CHUCHO SARAVIA Facility:[facility] Start: 04-16-2022 End: 04-17-[address] CHUCHO SARAVIA Facility:[facility] Start: 04-15-2022 End: 04-15-[address] CHUCHO SARAVIA Facility:[facility] Start: 03-11-2022 End: 03-11-2022 ambulatory Barry Valenzuela Other [facility] Other Start: 03-11-2022 Office outpatient vi sit 25 minutes Barry Valenzuela [facility] Start: 03-04-2022 (Procedure) Short Barry Valenzuela [facility] Start: 03-04-2022 End: 03-04-2022 ambulatory Barry Valenzuela Other [facility] Other Start: 02-17-2022 End: 02-17-2022 ambulatory Benigno Kennedy Other [facility] Other Start: 02-17-2022 Office outpatient vi sit 15 minutes Benigno Kennedy [facility] Start: 01-19-2022 End: 01-20-[address] CHUCHO SARAVIA Facility:[facility] Start: 01-05-2022 End: 01-05-2022 ambulatory Barry Valenzuela Other [facility] Other Start: 01-05-2022 Office outpatient vi sit 25 minutes Barry Negritadave [facility] Start: 12-03-2021 End: 12-03-2021 ambulatory Barry Reeser Other [facility] Other Start: 12-03-2021 Office outpatient vi sit 25 minutes Barry Reeser [facility] Start: 11-28-2021 End: 11-28-2021 ambulatory Barry Negritadave Other [facility] Other Start: 11-28-2021 Telephone encounter Barry Bishop [facility] Start: 11-07-2021 End: 11-07-2021 ambulatory Benigno Kennedy Other [facility] Other Start: 11-07-2021 Office outpatient vi sit 15 minutes Benigno Kennedy [facility] Start: 11-03-2021 End: 11-03-2021 ambulatory Barry Negritadave Other [facility] Other Start: 11-03-2021 Office outpatient vi sit 25 minutes Barry Negritadave [facility] Start: 10-14-2021 (Procedure) Short Barry Valenzuela [facility] Start: 10-14-2021 End: 10-14-2021 ambulatory Barry Negritadave Other [facility] Other Start: 10-06-2021 End: 10-06-2021 ambulatory Barry Negritadave Other [facility] Other Start: 10-06-2021 Office outpatient vi sit 25 minutes Barry Negritadave [facility] [facility] Start: 09-18-2021 End: 09-18-2021 ambulatory Benigno Kennedy Other [facility] Other Start: 09-18-2021 Office outpatient vi sit 15 minutes Benigno Kennedy [facility] Start: 09-11-2021 End: 09-11-2021 ambulatory Barry Negritadave Other [facility] Other Start: 09-11-2021 Office outpatient vi sit 25 minutes Barry Valenzuela [facility] Start: 09-02-2021 End: 09-02-2021 ambulatory Barry Valenzuela Other [facility] Other Start: 09-02-2021 Office outpatient vi sit 25 minutes Barry Valenzuela [facility] Start: 08-26-2021 (Procedure) Short Barry Reesdave [facility] Start: 08-26-2021 End: 08-26-2021 ambulatory Barry Valenzuela Other [facility] Other Start: 08-25-2021 End: 08-25-2021 ambulatory Benigno Kennedy Other [facility] Other Start: 08-25-2021 Telephone encounter Benigno Kennedy [facility] Start: 08-15-2021 End: 08-15-2021 ambulatory Barry Reesdave Other [facility] Other Start: 08-15-2021 Telephone encounter Barry Negritadave [facility] Start: 08-14-2021 End: 08-14-2021 ambulatory Benigno Kennedy Other [facility] Other Start: 08-14-2021 Office outpatient vi sit 15 minutes Benigno Kennedy [facility] Start: 09-05-2019 Pre-procedure evalua tion check Chucho Saravia Other [facility] Other Start: 06-06-2018 Patient encounter CIRA BENDER Fac ility:[id number] Start: 06-06-2018 Patient encounter Facil [id number] Start: 04-11-2018 End: 04-13-2018 Patient encounter RENATA LEIF [facility] Start: 04-11-2018 End: 04-11-2018 Patient encounter RENATA LEIF [facility] Start: 04-11-2018 End: 04-13-2018 Patient encounter RENATA LEIF [facility] Procedures Date Procedure Procedure Detail Performing Clinician [...] hip DO Chucho Ball Work Phone: Start: 10-29-2022 Plain X-ray of right hip DO Chucho Ball Work Phone: Start: 08-27-2022 MRI of lumbar spine with contrast DO Chucho Ball Work Phone: Start: 08-12-2022 X-ray of lumbar spin e, four views DO Chucho Ball Work Phone: Start: 07-07-2022 Screening mammograph y of bilateral breasts DO Chucho Saravia Work Phone: Start: 01-25-2018 Screening for osteoporosis Chucho Saravia Other Start: 01-25-2018 Screening mammography B enlavelle [facility] Other Start: 11-12-2015 Screening for malign [...] Activity Detail Author Start: 04-10-2024 Patient referral [facility] Work Phone: Start: 02-24-2023 End: 02-24-2023 Start: 02-24-2023 Referral to occupati onal therapist Start: 02-24-2023 Start: 01-25-2023 Plain X-ray of left shoulder XR shoulder LT min 2V* Comprehensive metabo lic 2000 panel - Serum or Plasma DXA Skeletal system. axial Views for bone density MG Breast - bilatera l Screening Patient referral [facility] Work Phone: [facility] XR Chest 2 Views [facility] Immunizations Immunization Date Immunization Notes Care Provider Fa josué 06-15-2024 influenza, high dose seasonal, preservative-free DO Chucho Saravia Work Phone: 06-15-2024 Pneumococcal Conjuga te Vaccine, 20 valent DO Chucho Saravia Work Phone: 06-15-2024 RSV, preF3, adj, pf DO Jose Angel Saravia Work Phone: 06-22-2023 Fluzone QIV High-Dos e 65YR+ DO Chucho Saravia Work Phone: 06-22-2023 influenza virus vaccine, unspecified formulation DO Chucho Saravia Work Phone: 06-22-2023 influenza, high dose seasonal, preservative-free Barry Negritadave Other [facility] Other 06-16-2022 Fluzone QIV High-Dos e 65YR+ DO Chucho Saravia Work Phone: 06-16-2022 influenza virus vaccine, split virus (incl. purified surface antigen) Chucho Saravia Other [facility] Other 06-16-2022 influenza virus vaccine, unspecified formulation DO Chucho Saravia Work Phone: 04-15-2022 diphtheria, tetanus toxoids and pertussis vaccine DO Chucho Saravia Work Phone: 08-06-2021 COVID-19 mRNA-1273 (Moderna) DO Chucho Saravia Work Phone: 07-13-2021 Fluzone QIV High-Dos e 65YR+ DO Chucho Saravia Work Phone: 12-16-2020 COVID-19 mRNA-1273 (Moderna) DO Chucho Saravia Work Phone: 11-18-2020 COVID-19 mRNA-1273 (Moderna) DO Chucho Saravia Work Phone: 06-27-2020 Influenza vaccine, quadrivalent, adjuvanted DO Chucho Saravia Work Phone: 06-20-2019 influenza, high dose seasonal, preservative-free DO Chucho Fligoo Work Phone: 09-10-2018 influenza, high dose seasonal, preservative-free DO Chucho Fligoo Work Phone: 06-02-2017 influenza virus vaccine, split virus (incl. purified surface antigen) Chucho Saravia Other [facility] [employer] Other 06-02-2017 influenza virus vaccine, unspecified formulation DO Chucho Fligoo Work Phone: 05-28-2017 influenza, high dose seasonal, preservative-free DO Chucho Fligoo Work Phone: 02-10-2017 pneumococcal polysaccharide vaccine, 23 valent Chucho [employer] Other 07-18-2015 influenza, injectabl e, quadrivalent, contains preservative DO Cuhcho [facility] Work Phone: 05-01-2015 pneumococcal conjuga te vaccine, 13 valent Chucho [employer] Other 05-01-2015 pneumococcal Conjuga te, unspecified formulation; Translations: [Need for prophylactic vaccination against Streptococcus pneumoniae (pneumococcus)] Chucho Saravia Other [facility] [employer] Other 08-01-2014 influenza virus vaccine, split virus (incl. purified surface antigen) Chucho Fligoo Other [facility] [employer] Other 08-01-2014 influenza virus vaccine, unspecified formulation DO [employer] Work Phone: 07-05-2013 tetanus and diphther ia toxoids, adsorbed, preservative free, for adult use (5 Lf of tetanus toxoid and 2 Lf of diphtheria toxoid) Chucho [facility] Other 07-05-2012 tetanus and diphther ia toxoids, adsorbed, preservative free, for adult use (5 Lf of tetanus toxoid and 2 Lf of diphtheria toxoid) Chucho Saravia Other 07-01-2011 tetanus and diphther ia toxoids, adsorbed, preservative free, for adult use (5 Lf of tetanus toxoid and 2 Lf of diphtheria toxoid) Chucho Saravia Other 08-06-2004 pneumococcal polysaccharide vaccine, 23 valent Chucho Saravia Other Payers Date Payer Category Payer Medicare [id number] 1959 Self-pay [id number] 1957 Unknown [id number] 1947 Unknown [id number] 2.16.840.1.375199.3.579.2.593 1947 Unknown [id number] 2.16.840.1.396144.3.579.2.593 1947 Unknown [id number] 2.16.840.1.290924.3.579.2.593 1947 Unknown [id number] 2.16.840.1.908987.3.579.2.593 1947 Unknown [id number] 2.16.840.1.285273.3.579.2.593 1947 Unknown [id number] 2.16.840.1.237426.3.579.2.593 1947 Unknown [id number] 2.16.840.1.918777.3.579.2.593 1947 Unknown [id number] 2.16.840.1.165584.3.579.2.1259 1947 Unknown [id number] 2.16.840.1.736969.3.579.2.1259 1947 Unknown [id number] 2.16.840.1.754967.3.579.2.1259 1947 Unknown [id number] 2.16.840.1.227720.3.579.2.1259 Medicare [id number] Unknown [employer] C o [id number] Unknown [id number] 2.16.840.1.336041.3.579.2.593 Unknown [id number] 2.16.840.1.256546.3.579.2.531 Unknown [id number] 2.16.840.1.044040.3.579.2.531 Unknown [id number] 2.16.840.1.532428.3.579.2.531 Unknown [id number] 2.16.840.1.597152.3.579.2.531 Unknown [id number] 2.16.840.1.241516.3.579.2.531 Unknown [id number] 2.16.840.1.248260.3.579.2.531 Social History Date Type Detail Facility Unknown if ever smoked [facility] Other Sex Assigned At Sex Assigned At Bir th [facility] Other Start: 03-05-2021 End: 04-10-2024 Tobacco smoking status WVIS Ex-smoker (finding) Start: 1945 Sex Assigned At Female F [facility] Medical Equipment Procedure Code Equipment Code Equipment Origin al Text Equipment Identifier Dates Fusion, spine, lumbar, XLIF CANCELLOUS 15CC CRUSHED FDA Start: 03-05-2021 Fusion, spine, lumbar, XLIF Orthopaedic bone screw, non-bioabsorbable, non-sterile [id number] FDA Start: 03-05-2021 Fusion, spine, lumbar, XLIF Orthopaedic instrument surgical connector [id number] FDA Start: 03-05-2021 Fusion, spine, lumbar, XLIF Bone-screw internal spinal fixation system, non-sterile [id number] FDA Start: 03-05-2021 Fusion, spine, lumbar, XLIF Spinal fusion graft kit ()[id number] FDA Start: 03-05-2021 Fusion, spine, lumbar, XLIF Polymeric spinal fusion cage, sterile ()[id number] FDA Start: 03-05-2021 Fusion, spine, lumbar, XLIF Bone-screw internal spinal fixation system, non-sterile [id number] FDA Start: 03-05-2021 Fusion, spine, lumbar, XLIF Orthopaedic bone screw, non-bioabsorbable, non-sterile [id number] FDA Start: 03-05-2021 Fusion, spine, lumbar, XLIF [...] 03-05-2021 Arthroscopy, shoulder Tendon/ligament bone anchor, non-bioabsorbable ()[id number] [id number] FDA Start: 08-01-2019 Arthroplasty, shoulder, total Total reverse shoulder prosthesis ()[id number] [id number] 69 FDA Start: 02-24-2023 Arthroplasty, shoulder, total Total reverse shoulder prosthesis ()[id number] [id number] FDA Start: 02-24-2023 Arthroplasty, shoulder, total Total reverse shoulder prosthesis ()[id number] [id number] 30 FDA Start: 02-24-2023 Arthroplasty, shoulder, total Total reverse shoulder prosthesis ()[id number] [id number] 00 FDA Start: 02-24-2023 Arthroplasty, shoulder, total Total reverse shoulder prosthesis ()[id number] [id number])[id number] 66 FDA Start: 02-24-2023 Arthroplasty, shoulder, total Total reverse shoulder prosthesis ()[id number] [id number])22.024 85 FDA Start: 02-24-2023 Arthroplasty, shoulder, total Total reverse shoulder prosthesis ()[id number] [id number] FDA Start: 02-24-2023 Arthroplasty, shoulder, total Total reverse shoulder prosthesis ()[id number] [id number] FDA Start: 02-24-2023 Arthroplasty, shoulder, total Total reverse shoulder prosthesis ()[id number]( [id number] 64 FDA Start: 02-24-2023 Arthroplasty, shoulder, total Total reverse shoulder prosthesis ()[id number] [id number] 66 FDA Start: 02-24-2023 Goals Date Patient Goal Desired Activity /State Clinical Notes 08-14-2021 to 11-09-2023 Note Date & Type Note Facility 11-09-2023 Evaluation note Encounter Date Diagnosis Assessment Notes Oct, LALITA (generalized anxiety disorder) (ICD-10 - F41.1) [facility] Other 02-07-2024 Evaluation note* Encounter Date Diagnosis [...] would like to see the someone in [place] or [place] for another set of eyes to determine if there is anything from a surgical standpoint I can help with her significant pain I am happy to make that referral as well. I again stressed that I do not feel that there is anything from a surgical standpoint that I will be able to offer her. 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 She understands the associated risks [...] note writ ten by Henry Salter MA, Clinic Charge Nurse. Edited and approved by Dr. Barry Valenzuela MD. [facility] Other 09-12-2023 Evaluation note* Encounter Date Diagnosis [...] slowly progress increased activity as pain allows. [facility] Other 08-18-2023 Evaluation note* Encounter Date Diagnosis Assessment Notes Treatment Notes Treatment Clinical Notes Apr, Age-related osteoporosis without current pathological fracture (ICD-10 - M81.0) [facility] Other 06-06-2023 Evaluation note* Encounter Date Diagnosis Assessment Notes Treatment Notes Treatment Clinical Notes Feb, Acute bronchitis due to other specified organisms (ICD-10 - J20.8) [facility] Other 06-02-2023 Evaluation note* Encounter Date Diagnosis [...] Increase use of MICHAELA and add mucolytic [facility] Other 05-30-2023 Evaluation note* Encounter Date Diagnosis Assessment Notes Treatment Notes Treatment Clinical Notes January, 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) [facility] Other 05-16-2023 Evaluation note* Encounter Date Diagnosis [...] loosening, loss of motion, hematoma, wound problems, 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 She understands the associated risks [...] note writ ten by Shahla Lopez LPN, Clinic Charge Nurse. Edited and approved by Dr. Barry Valenzuela MD. [facility] Other 02-22-2023 Evaluation note* Encounter Date Diagnosis Assessment Notes Treatment Notes Treatment Clinical Notes Oct, Mucopurulent chronic bronchitis (ICD-10 - J41.1) [facility] Other 02-21-2023 Evaluation note* Encounter Date Diagnosis Assessment Notes Treatment Notes Treatment Clinical Notes Oct, Pernicious anemia (ICD-10 - D51.0) [facility] Other 02-02-2023 Evaluation note* Encounter Date Diagnosis [...] educated regarding the risks and benefits of skilled nursing opioid use. She understands the associated risks with this medication and agrees that it provides reasonable benefit in regards to her pain control and level of function. This medication was refilled today. Oct, Other Above note writ ten by Shahla Lopez LPN, Clinic Charge Nurse. Edited and approved by Dr. Barry Valenzuela MD. [facility] Other 01-27-2023 Evaluation note* Encounter Date Diagnosis [...] with another xray. 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 She understands the associated risks with this medication and agrees that it provides reasonable benefit in regards to her pain control and level of function. This medication was refilled today. Jul, Other spondylosis with radiculopathy, lumbar region (ICD-10 - M47.26) Jul, Trochanteric bursitis of left hip (ICD-10 - M70.62) Jul, Other Above note writ ten by Henry Salter MA, Clinic Charge Nurse. Edited and approved by Dr. Barry Valenzuela MD. 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 She understands the associated risks with this medication and agrees that it provides reasonable benefit in regards to her pain control and level of function. This medication was refilled today. Feb, Other spondylosis with radiculopathy, lumbar region (ICD-10 - M47.26) Feb, Trochanteric bursitis of left hip (ICD-10 - M70.62) Feb, Other Above note writ ten by Shahla Lopez LPN, Clinic Charge Nurse. Edited and approved by Dr. Barry Valenzuela MD. 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 Edited and approved by Dr. Barry Valenzuela MD. [facility] Other 03-09-2022 Evaluation note* Encounter Date Diagnosis [...] note writ ten by Henry Salter CMA, Clinic Charge Nurse. Edited and approved by Dr. Barry Valenzuela MD. [facility] Other 03-04-2022 Evaluation note* Encounter Date Diagnosis Assessment Notes Treatment Notes Treatment Clinical Notes Nov, Tear of gluteus medius tendon (ICD-10 - S76.019A) [facility] Other 02-11-2022 Evaluation note* Encounter Date Diagnosis [...] Oct, Left hip pain (ICD-10 - M25.552) [facility] Other 02-07-2022 Evaluation note* Encounter Date Diagnosis [...] note writ ten by Shahla Lopez LPN, Clinic Charge Nurse. Edited and approved by Dr. Barry Valenzuela MD. [facility] Other 01-10-2022 Evaluation note* Encounter Date Diagnosis [...] note writ ten by Henry Salter CMA, Clinic Charge Nurse. Edited and approved by Dr. Barry Valenzuela MD. [facility] Other 12-23-2021 Evaluation note* Encounter Date Diagnosis [...] Aug, Left hip pain (ICD-10 - M25.552) [facility] Other 12-16-2021 Evaluation note* Encounter Date Diagnosis [...] note writ ten by Henry Salter CMA, Clinic Charge Nurse. Edited and approved by Dr. Barry Valenzuela MD. [facility] Other 12-07-2021 Evaluation note* Encounter Date Diagnosis [...] Above note writ ten by Tsering MARROQUIN, Clinic Charge Nurse. Edited and approved by Dr. Barry Valenzuela MD. [facility] Other 11-29-2021 Evaluation note* Encounter Date Diagnosis Assessment Notes Treatment Notes Treatment Clinical Notes Jul, Stenosis, spinal, lumbar (ICD-10 - M48.06) [facility] Other 11-19-2021 Evaluation note* Encounter Date Diagnosis Assessment Notes Treatment Notes Treatment Clinical Notes Jul, Left hip pain (ICD-10 - M25.552) [facility] Other 11-18-2021 Evaluation note* Encounter Date Diagnosis [...] suspect this is the source of pathology [facility] [employer] Other evaluation noteNo [facility] [employer] Other Evaluation noteNo assessment information available [facility] [place] Work Phone: Evaluation noteNortDepartment of [facility] [employer] Other Evaluation note* Diagnosis Onset Date Resolution Status Chronic pain acute Inflammation of right sacroiliac joint acute Trochanteric bursitis acute Chronic pain acute DJD (degenerative joint disease), lumbosacral acute Inflammation of right sacroiliac joint acute [facility] Work Phone: Evaluation note* Diagnosis Onset Date Resolution Status Chronic pain acute Inflammation of right sacroiliac joint acute Trochanteric bursitis acute Chronic pain acute DJD (degenerative joint disease), lumbosacral acute Inflammation of right sacroiliac joint acute Chronic obstructive pulmonar y disease with (acute) exacerbation acute Chronic obstructive pulmonar y disease with (acute) lower respiratory infection acute [facility] Work Phone: evaluation note* Diagnosis Onset Date Resolution Status Inflammation of right sacroiliac joint acute Trochanteric bursitis acute DJD (degenerative joint disease), lumbosacral acute Inflammation of right sacroiliac joint acute Chronic bronchitis acute Hypothyroid acute Lumbar spondylosis acute BRET (obstructive sleep apnea) acute [facility] Work Phone: Evaluation note* Diagnosis Onset Date Resolution Status Inflammation of right sacroiliac joint acute Trochanteric bursitis acute DJD (degenerative joint disease), lumbosacral acute Inflammation of right sacroiliac joint acute Chronic bronchitis acute Hypothyroid acute Lumbar spondylosis acute BRET (obstructive sleep apnea) acute DJD (degenerative joint disease), lumbosacral acute Inflammation of right sacroiliac joint acute [facility] Work Phone: evaluation note* Diagnosis Onset [...] of chroni c obstructive airways disease noneactive [facility] Work Phone: Evaluation note* Diagnosis Onset [...] acute Inflammation of right sacroiliac joint acute [facility] Work Phone: Evaluation note* Diagnosis Onset [...] acute Inflammation of right sacroiliac joint acute [facility] Work Phone: Evaluation note* Diagnosis Onset [...] edema acute BRET (obstructive sleep apnea) acute [facility] Work Phone: Evaluation note* Diagnosis Onset [...] acute Inflammation of right sacroiliac joint acute [facility] Work Phone: Evaluation note* Diagnosis Onset [...] acute Painful total knee replacement, right acute [facility] Work Phone: Evaluation note* Diagnosis Onset [...] joint disease), lumbosacral acute Knee pain acute [facility] Work Phone: Evaluation note* Diagnosis Onset Date Resolution Status Arthritis of carpometacarpal (CMC) joint of both thumb s acute DJD (degenerative joint disease), lumbosacral acute Inflammation of right sacroiliac joint acute Acute exacerbation of chroni c obstructive airways disease acute Hypothyroid acute Lower extremity edema acute Obesity acute BRTE (obstructive sleep apnea) acute Retained suture acute Chronic pain acute DJD (degenerative joint disease), lumbosacral acute Knee pain acute Painful total knee replacement, right acute Chronic pain acute DJD (degenerative joint disease), lumbosacral acute Knee pain acute [facility] Work Phone: Evaluation note* Diagnosis Onset [...] joint disease), lumbosacral acute Knee pain acute Chronic pain acute DJD (degenerative joint disease), lumbosacral acute Knee pain acute [facility] Work Phone: Evaluation note* Diagnosis Onset [...] joint disease), lumbosacral acute Knee pain acute Chronic pain acute DJD (degenerative joint disease), lumbosacral acute Knee pain acute [facility] Work Phone: Evaluation note* Diagnosis Onset [...] joint disease), lumbosacral acute Knee pain acute Chronic pain acute DJD (degenerative joint disease), lumbosacral acute Knee pain acute Chronic bronchitis acute LALITA (generalized anxiety disorder) acute Hypothyroid acute Medicare annual wellness visit, subsequent acute Obesity acute BRET (obstructive sleep apnea) acute [facility] Work Phone: History general Narrative - [...] [id number] [id number] 03/05/2021 Hospitalization History See above [facility] Other [facility] general Narrative - Reported* Type Description Date [...] shoulder, left 02/2023 Hospitalization History See above [facility] Other History general Narrative - ReportedNort [facility] Other Hospital Discharge instructions Additional Instructions DISCHARGE [...] OTHER -Any problems call the office at [phone] or return to Emergency Room. If you [...] in one week; call the office at [phone] if your appointment has not been made already. Call [phone] for further questions.[facility] [place] Work Phone: Summary Purpose Family History Relationship [...] Right hip pain (M25. 551) Referral Organization [facility] [employer] Referring Provider First Name Barry Referring Provider Last Name Nicolas Referring Provider Specialty Pain Medici ne Referred Organization [facility] [employer] Referred Provider Coy Cassidy II Referred Address [address] [facility] [place],[address] Referred Provider Specialty Orthopedic S urgery Referral [...] 1 Lumbar spondylosis ( M47.816) Referral Organization [facility] urosurgery Referring Provider First Name Benigno Referring Provider Last Name Marcia Referring Provider Specialty Neurologica l Surgery Referred Organization [facility] Pain [facility]ag[facility] t Referred Provider Albin Sweeney Referred Address [address],[address] Referred Provider Specialty Pain Medicin e Referral [...] R SI & BURSA Cough, Chills-COVID Negative- [phone] Reason for Visit Chronic pain Inflammation of [...] R SI & BURSA Cough, Chills-COVID Negative- [phone] month follow up Reason for Visit Inflammation of righ t sacroiliac joint Trochanteric bursitis DJD (degenerative joint disease), lumbosacral Inflammation of right sacroiliac joint Chronic bronchitis Hypothyroid Lumbar spondylosis BRET (obstructive sleep apnea) Chief Complaint M25.551 M25.[address] CASSIDY RIGHT SI & TROCH BURSA INJ/DS F/U AFTER R SI & BURSA Cough, Chills-COVID Negative- [phone] month follow up RIGHT LUMBAR FACET [...] R SI & BURSA Cough, Chills-COVID Negative- [phone] month follow up RIGHT LUMBAR FACET [...] R SI & BURSA Cough, Chills-COVID Negative- [phone] month follow up RIGHT LUMBAR FACET [...] R SI & BURSA Cough, Chills-COVID Negative- [phone] month follow up RIGHT LUMBAR FACET [...] on right leg 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 RIGHT LEG PAIN Reason for Visit Acute [...] on right leg 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 RIGHT LEG PAIN z96.651 t84.84xa Reason for [...] on right leg 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 RIGHT LEG PAIN z96.651 t84.84xa 1 MONTH [...] on right leg 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 RIGHT LEG PAIN z96.651 t84.84xa 1 MONTH [...] joint disease), lumbosacral Knee pain Chief Complaint 1 MONTH FOLLOW UP leg swelling, lump on right leg 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 RIGHT LEG PAIN z96.651 t84.84xa 1 MONTH B12 Shot 1 MONTH Reason for Visit DJD (degenerative barrington int disease), lumbosacral Inflammation of right sacroiliac joint Acute exacerbation of chronic obstructive airways disease Hypothyroid Lower extremity edema Obesity BRET (obstructive sleep apnea) Retained suture Chronic pain DJD (degenerative joint disease), lumbosacral Knee pain Painful total knee replacement, right Chronic pain DJD (degenerative joint disease), lumbosacral Knee pain Chronic pain DJD (degenerative joint disease), lumbosacral Knee pain Chief Complaint leg swelling, lump o n right leg 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 RIGHT LEG PAIN z96.651 t84.84xa 1 MONTH B12 Shot 1 MONTH B12 Shot Reason for Visit Acute exacerbation o f chronic obstructive airways disease Hypothyroid Lower extremity edema Obesity BRET (obstructive sleep apnea) Retained suture Chronic pain DJD (degenerative joint disease), lumbosacral Knee pain Painful total knee replacement, right Chronic pain DJD (degenerative joint disease), lumbosacral Knee pain Chronic pain DJD (degenerative joint disease), lumbosacral Knee pain Chief Complaint leg swelling, lump o n right leg 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 RIGHT LEG PAIN z96.651 t84.84xa 1 MONTH B12 Shot 1 MONTH B12 Shot wellness Reason for Visit Acute exacerbation o f chronic obstructive airways disease Hypothyroid Lower extremity edema Obesity BRET (obstructive sleep apnea) Retained suture Chronic pain DJD (degenerative joint disease), lumbosacral Knee pain Painful total knee replacement, right Chronic pain DJD (degenerative joint disease), lumbosacral Knee pain Chronic pain DJD (degenerative joint disease), lumbosacral Knee pain Chronic bronchitis LALITA (generalized anxiety disorder) Hypothyroid Medicare annual wellness visit, subsequent Obesity BRET (obstructive sleep apnea) Additional Source Comments INFORMATION SOURCE (unrecogn ized section and content) DATE CREATED AUTHOR 04/15/2018 [facility] DATE CREATED AUTHOR AUTHOR'S ORGANIZ ATION 06/22/2018 [facility] DATE CREATED AUTHOR AUTHOR'S ORGANIZ ATION 07/04/2018 [facility] DATE CREATED AUTHOR AUTHOR'S ORGANIZ ATION 12/07/2022 [facility] DATE CREATED AUTHOR AUTHOR'S ORGANIZ ATION 03/18/2024 [facility] EPIC DATE CREATED AUTHOR AUTHOR'S ORGANIZ ATION 04/16/2024 [facility] REASON FOR VISIT (unrecogniz ed [...] Ann Saravia DO Primary Care Provider Active Barry Patel MD Attending Provider Active Team Status: Inactive Member Role Status Ann Saravia DO Primary Care Provider Active Barry Patel MD Attending Provider Active Team Status: Inactive Member Role Status Ann Saravia DO Primary Care Provider, Referring Pr ovider Active Referral Self Attending Provider Active Team Status: Inactive Member Role Status Ann Saravia DO Primary Care Provider Active Benigno Kennedy MD Attending Provider Active Team Status: Inactive Member Role Status Ann Saravia DO Primary Care Provider Active Barry Valenzuela MD Attending Provider Active Team Status: Inactive Member Role Status Ann Saravia DO Primary Care Provider Active Coy Cassidy II, MD Attending Provider Active Team Status: Active Member Role Status Ann Saravia DO Primary Care Provider Active Start: November 11, 2023 CARA Clifton Attending Provider Active Start : November 11, 2023 Team Status: Inactive Member Role Status Dates Chucho Saravia Primary Care Provider Active Start: November 25, 2023 End: November 25, 2023 Barry Valenzuela MD Attending Provider Active Sta rt: November 25, 2023 End: November 25, 2023 Team Status: Inactive Member Role Status Ann Saravia Primary Care Provider Active Start: April 12, 2024 End: April 12, 2024 Coy Cassidy II, MD Attending Provider Active Start: April 12, 2024 End: April 12, 2024 Team Status: Inactive Member Role Status Ann Saravia Primary Care Provider Active Start: May 08, 2024 End: May 08, 2024 Barry Valenzuela MD Attending Provider Active Sta rt: May 08, 2024 End: May 08, 2024 Team Status: Inactive Member Role Status Ann Saravia Primary Care Provide r, Attending Provider Active Start: May 15, 2024 End: May 15, 2024 Team Status: Inactive Member Role Status Ann Saravia DO Primary Care Provider Active Start: June 05, 2024 End: June 05, 2024 Barry Valenzuela MD Attending Provider Active Sta rt: June 05, 2024 End: June 05, 2024 Team Status: Inactive Member Role Status Ann Saravia DO Primary Care Provide r, Attending Provider Active Start: June 21, 2024 End: June 21, 2024 Team Status: Inactive Member Role Status Ann Saravia DO Primary Care Provide r, Attending Provider Active Start: June 26, 2024 End: June 26, 2024 Goals (unrecognized section and content) Goals [...] BE BASED ON THE PRIMARY CLINICAL RECORDS. [facility] [employer] [facility]. provides no warranty or guarantee of the accuracy or completeness of information in this document.
[2024-06-27 10:12] LABS: Chol HDL Ratio 3.5; Cholesterol 255 mg/dL (<=200); HDL Cholesterol 72 mg/dL (40-60); Thyroid Stimulating Hormone 2.021 uIU/mL (0.358-3.740); Triglycerides 120 mg/dL (<=150)
== END 2024-06-27 08:49 | disposition home or self-care (01) ==
LOC: LAB 08:49
PROVIDERS: PCP Internal Medicine; Visit Provider Internal Medicine
DX: E78.00 Pure hypercholesterolemia, unspecified (principal); E03.9 Hypothyroidism, unspecified
CPT/HCPCS: 36415; 80061; 84443

== ENCOUNTER 2024-07-11 09:12 | Outpatient (OUT) | payer MEDICARE, OTHER, SELFPAY ==
--- OUTSIDE RECORDS SUMMARY | 2024-07-07 10:46 | XMS_ITS | CCD ---
Author Organization [facility] Care Team Providers Care Director Environmental Name Role Phone LEIF, RENATA Unavailable Unavailable CHUCHO SARAVIA E Unavailable Unavailable LEIF, RENATA Unavailable Unavailable LEIF, RENATA Unavailable Unavailable CIRA BENDER Unavailable Unavailable CHUCHO SARAVIA Unavailable Unavailable Barry Valenzuela Unavailable Benigno Kennedy Unavailable DO Chucho Saravia Primary Care Provider DO Chucho Saravia Referring Provider Self, Referral Attending Provider Unavailable DO Chucho Saravia Primary Care Provider DO Chucho Saravia Referring Provider [phone] Self, Referral Attending Provider Unavailable MD Benigno Kennedy Attending Provider [phone] DO Chucho Saravia Primary Care Provider MD Barry Valenzuela Attending Provider [phone] Chucho Saravia Unavailable Radha Kennedy Unavailable REQUEST, [...] MD Coy Cassidy II Attending Provider [phone] DO Chucho Saravia Primary Care Provider MD [...] adhesive tape Propensity to adverse reactions rash [facility] Other (20 sources) Adhesive Tape; Translations: [Adhesive tape] Allergy to substance 1 Rash;blisterin g [facility] (10 sources) Adhesive Tape Drug allergy Unknown [facility] Other (20 sources) zoledronic acid Drug Allergy 4 Unknown, Unknown Reaction [facility] (3 sources) Allergies Reconciled Propensity to adverse reactions Unknown [facility] Other (3 sources) patient allergy list reviewed by nurse or physicia Propensity to adverse reactions 3 Comment:Done [facility] Other (18 sources) Mannitol; Translations: [mannitol] Drug Allergy 4 Unknown Reaction [facility] (18 sources) water for injection,steri le; Translations: [water for injection,steri le] Allergy to substance 4 Unknown Reaction [facility] (1 source) zoledronic acid Drug Allergy 4 [facility] Repository Medications Current Medications Medication Drug Class(es) Dates Sig (Normalized) Sig (Original) acetaminophen 325 mg / oxyCODONE hydrochloride 5 mg oral tablet (20 sources) Opioid Agonist Start: 02-23-2023 take 1 tablet by mouth every four hours as needed for pain Percocet 5-325 MG 1 tablet as needed for pain Orally up to every 4 hrs for 5 days GABE: [id number] January, Active Start: 05-27-2021 take 1 tablet [...] 25, 2017 12:00am April 07, 2018 11:40pm [id number] actuat albuterol 0.09 mg/actuat metered dose [...] 04-29-2023 take 2 tablets by mo [facility] [place] every twelve hours Niacin 50 MG 2 [...] every 4 hrs for 5 days GABE: [id number] Mar, Active Start: 03-21-2018 End: 04-07-2018 take [...] if needed take 2 tablets by mo [facility] once daily at bedtime traZODone HCl 50 [...] mouth every four to six hours Hydrocodone-Acetaminophen ([place]) 5-325 mg Tablet Discontinued 1 TAB PO [...] mL by inhalation every four hours Ipratropium Mobile Discontinued 3 ML INHALATION Q4H February 12, 2023 12:00am December 13, 2023 10:14am Start: 11-20-2022 take 2.5 mL by inhal ation every six hours Ipratropium Mobile 0.02 % 2.5 mL Inhalation every 6 [...] 10-28-2020 take 5 mg intravenously once Zoledronic Hyuq-Ncdzyikz-Potut (Reclast) 5 mg/100 mL Piggyback Discontinued 5 [...] sources) High risk drug monitoring status; Translations: [halfway (current) use of opiate analgesic] Episodic Other aftercare (3 sources) Long-term current use of drug therapy; Translations: [Other assisted (current) drug therapy] Episodic Other aftercare (3 sources) Long-term current use of inhaled steroid; Translations: [halfway (current) use of inhaled steroids] Episodic Other [...] object(s), not elsewhere classified, initial encounter; Translations: [[facility] SHRP OB NOT ELSW CLASS INI] Onset: [...] 09-02-2021 Episodic Other aftercare (1 source) Other intermediate manager (current) drug therapy; Translations: [[facility] CUSTODIAL CURRENT DRUG THERAPY] Onset: 04-17-2022 Episodic Other [...] non-blacks MDRD (S/P/Bld) [Vol rate/Area] mL/min/{1.73_m2} >=60 [facility] Laboratory - Chemistry and C hemistry - challengeon 05-15-2024 Calcium [Mass/Vol] 9.2 mg/dL 8.5-10.1 [facility] Chloride [Moles/Vol] 107 mmol/L 98-107 [facility] CO2 [Moles/Vol] 30.2 mmol/L 21.0-32.[address] [facility] Creatinine [Mass/Vol] 0.85 mg/dL 0.55-1.02 [facility] GFR/1.73 sq M.predicted MDRD (S/P/Bld) [Vol rate/Area] mL/min/{1.73_m2} >=60 [facility] Glucose [Mass/Vol] 71 mg/dL Low 74-106 [facility] Potassium [Moles/Vol] 3.8 mmol/L 3.5-5.1 [facility] Sodium [Moles/Vol] 143 mmol/L 136-145 [facility] Urea nitrogen [Mass/Vol] 22.0 mg/dL High 7.0-18.0 [facility] Urea nitrogen/Creatinine [Mass ratio] 25.9 mg/mg [facility] No Panel Informationon 05-15 25-Hydroxy Vitamin D Total 83.4 ng/mL [facility] Comment on above: <20 ng/mL Vit D defi cient20-<30 ng/mL Vit D [id number] ng/mL Vit D sufficient>100 ng/mL Potential Toxicity Serum or plasma anion gap de terminationon 05-15-2024 Anion gap [Moles/Vol] 9.6 mmol/L [facility] Automated basophil %Ordered By: Coy Cassidy on 04-12-2024 Basophils/100 WBC (Bld) 2.0 % . [facility] Comment on above: Performed By: #### C RP, DDIMER, CBC, ESR #### [address] Automated basophil countOrde red By: Coy Cassidy on 04-12-2024 Basophils (Bld) [#/Vol] 0.1 10*3/uL 0.0-0.2 [facility] Comment on above: Performed By: #### C RP, DDIMER, CBC, ESR #### [facility] [address] [place] [address] Automated blood monocyte cou ntOrdered By: Coy Cassidy on 04-12-2024 Monocytes (Bld) [#/Vol] 0.4 10*3/uL 0.0-0.8 [facility] Comment on above: Performed By: #### C RP, DDIMER, CBC, ESR #### [address] Automated eosinophil %Ordere d By: Coy Cassidy on 04-12-2024 Eosinophils/100 WBC (Bld) 6.0 % . [facility] Comment on above: Performed By: #### C RP, DDIMER, CBC, ESR #### [address] Automated eosinophil countOr dered By: Coy Cassidy on 04-12-2024 Eosinophils (Bld) [#/Vol] 0.3 10*3/uL 0.0-0.45 [facility] Comment on above: Performed By: #### C RP, DDIMER, CBC, ESR #### [address] Automated monocyte %Ordered By: Coy Cassidy on 04-12-2024 Monocytes/100 WBC (Bld) 9.0 % . [facility] Comment on above: Performed By: #### C RP, DDIMER, CBC, ESR #### [address] Automated neutrophil %Ordere d By: Coy Cassidy on 04-12-2024 Neutrophils/100 WBC (Bld) 44.4 % . [facility] Comment on above: Performed By: #### C RP, DDIMER, CBC, ESR #### [address] C reactive protein [Mass/vol ume] in Serum or PlasmaOrdered By: Coy Cassidy on 04-12-2024 CRP [Mass/Vol] < 0.5 mg/dL 0.0-0.5 [facility] C-Reactive Proteinon 024 CRP [Mass/Vol] mg/L Normal 0.0-0.5 [facility] Comment on above: Result Comment: PERF ORMED BY: [place] [address] PATHOLOGIST COSMETIC CONSULTANT POWER GUTIERREZ M.D. Performed By: #### C RP, DDIMER, CBC, ESR #### [address] Complete Blood Count Auto Di ffon 04-12-2024 Mean Corpuscular HGB Conc 32.9 g/dL Normal 32.0-35.0 [facility] Comment on above: Performed By: #### C RP, DDIMER, CBC, ESR #### [address] NRBC% 0.3 /100{WBC} Normal 0-0.5 [facility] Comment on above: Performed By: #### C RP, DDIMER, CBC, ESR #### [address] D-Dimer High Sensitivityon 0 04-12-2024 D-Dimer High Sensitivity 463 ng/mL High 0-243 [facility] Comment on above: Result Comment: [...] coagulation studies. Please contact the laboratory at [phone] for redraw instructions. PERFORMED BY: [place] [address] PATHOLOGIST COSMETIC CONSULTANT POWER GUTIERREZ M.D. Performed By: #### C RP, DDIMER, CBC, ESR #### [address] Erythrocyte Sedimentation Ra prabhjot 04-12-2024 ESR (Bld) [Velocity] 32 mm/h High 0-29 [facility] Comment on above: Result Comment: PERF ORMED BY: [place] [address] PATHOLOGIST COSMETIC CONSULTANT POWER GUTIERREZ M.D. Performed By: #### C RP, DDIMER, CBC, ESR #### [address] Erythrocyte distribution wid th [Ratio] by Automated countOrdered By: Coy Cassidy on 04-12-2024 Erythrocyte distribution width (RBC) [Ratio] 16.4 % High 11.9-15.3 [facility] Comment on above: Performed By: #### C RP, DDIMER, CBC, ESR #### [facility] [address] Erythrocyte sedimentation ra te by Photometric methodOrdered By: Coy Cassidy on 04-12-2024 ESR Photometric method (Bld) [Velocity] 32 mm/hr High 0-29 [facility] Erythrocytes [#/volume] in B lood by Automated countOrdered By: Coy Cassidy on 04-12-2024 RBC (Bld) [#/Vol] 4.24 10*6/uL 3.60-5.00 [facility] Comment on above: Performed By: #### C RP, DDIMER, CBC, ESR #### [facility] [address] Fibrin D-dimer [Presence] in Platelet poor plasma by Latex agglutinationOrdered By: Coy Cassidy on 04-12-2024 Fibrin D-dimer LA Ql (PPP) 463 ng/mL High 0-243 [facility] Comment on above: The reference range for [...] coagulation studies. Please contact the laboratory at [phone] for redraw instructions. Hematocrit [Volume Fraction] of Blood by Automated countOrdered By: Coy Cassidy on 04-12-2024 Hematocrit (Bld) [Volume fraction] 36.9 % 34.0-46.4 [facility] Comment on above: Performed By: #### C RP, DDIMER, CBC, ESR #### [address] Hemoglobin [Mass/volume] in BloodOrdered By: Coy Cassidy on 04-12-2024 Hemoglobin (Bld) [Mass/Vol] 12.2 g/dL 11.8-15.4 [facility] Comment on above: Performed By: #### C RP, DDIMER, CBC, ESR #### [address] Leukocytes [#/volume] correc ana for nucleated erythrocytes in Blood by Automated counOrdered By: Coy Cassidy on 04-12-2024 WBC corrected for nucl RBC Auto (Bld) [#/Vol] 4.8 10*3/uL 3.8-11.6 [facility] Leukocytes [#/volume] in Blo od by Automated countOrdered By: Coy Cassidy on 04-12-2024 WBC (Bld) [#/Vol] 4.8 10*3/uL 3.8-11.6 [facility] Comment on above: Performed By: #### C RP, DDIMER, CBC, ESR #### [address] Lymphocytes [#/volume] in Bl ood by Automated countOrdered By: Coy Cassidy on 04-12-2024 Lymphocytes (Bld) [#/Vol] 1.9 10*3/uL 1.00-4.8 [facility] Comment on above: Performed By: #### C RP, DDIMER, CBC, ESR #### [place] [address] [place] Lymphocytes/100 leukocytes i n Blood by Automated countOrdered By: Coy Cassidy on 04-12-2024 Lymphocytes/100 WBC (Bld) 38.6 % . [facility] Comment on above: Performed By: #### C RP, DDIMER, CBC, ESR #### [place] [address] [place] MCH [Entitic mass] by Automa ana countOrdered By: Coy Cassidy on 04-12-2024 MCH (RBC) [Entitic mass] 28.7 pg 24.7-34.3 [facility] Comment on above: Performed By: #### C RP, DDIMER, CBC, ESR #### [address] MCHC Auto (RBC) [Mass/Vol]Or dered By: Coy Cassidy on 04-12-2024 MCHC (RBC) [Mass/Vol] 32.9 g/dL 32.0-35.0 [facility] MCV [Entitic volume] by Auto mated countOrdered By: Coy Cassidy on 04-12-2024 MCV (RBC) [Entitic vol] 87.1 fL 80-100 [facility] Comment on above: Performed By: #### C RP, DDIMER, CBC, ESR #### [address] Neutrophils [#/volume] in Bl ood by Automated countOrdered By: Coy Cassidy on 04-12-2024 Neutrophils (Bld) [#/Vol] 2.1 10*3/uL 1.8-7.7 [facility] Comment on above: Performed By: #### C RP, DDIMER, CBC, ESR #### [facility] [address] [place] [address] Nucleated erythrocytes [Pres ence] in Blood by Automated countOrdered By: Coy Cassidy on 04-12-2024 Nucleated RBC Auto Ql (Bld) 0.3 /100{WBC} 0-0.5 [facility] Platelet mean volume [Entiti c volume] in Blood by Automated countOrdered By: Coy Cassidy on 04-12-2024 Platelet mean volume (Bld) [Entitic vol] 8.5 fL 6.3-10.7 [facility] Comment on above: Performed By: #### C RP, DDIMER, CBC, ESR #### [address] Platelets [#/volume] in Bloo d by Automated countOrdered By: Coy Cassidy on 04-12-2024 Platelets (Bld) [#/Vol] 380 10*3/uL 150-450 [facility] Comment on above: Performed By: #### C RP, DDIMER, CBC, ESR #### [address] Basophils Auto (Bld) [#/Vol] on 03-31-2024 Basophils (Bld) [#/Vol] 0.1 10 3/uL 0.0-0.1 [facility] Basophils/100 WBC Auto (Bld) on 03-31-2024 Basophils/100 WBC (Bld) 1.5 % 0.2-2.0 [facility] Eosinophils/100 WBC Auto (Bl d)on 03-31-2024 Eosinophils/100 WBC (Bld) 5.6 % 0.9-7.0 [facility] Erythrocyte distribution wid th Auto (RBC) [Ratio]on 03-31-2024 Erythrocyte distribution width (RBC) [Ratio] 15.8 % High 11.0-15.0 [facility] Estimated glomerular filtrat ion rate (GFR) non- Americanon 03-31-2024 GFR/1.73 sq M.predicted among non-blacks MDRD (S/P/Bld) [Vol rate/Area] mL/min/{1.73_m2} >=60 [facility] Globulin Calc (S) [Mass/Vol] on 03-31-2024 Globulin (S) [Mass/Vol] 3.4 g/dL [facility] Hematocrit Auto (Bld) [Volum e fraction]on 03-31-2024 Hematocrit (Bld) [Volume fraction] 37.6 % 36.0-48.0 [facility] Hemoglobin [Mass/volume] in Bloodon 03-31-2024 Hemoglobin (Bld) [Mass/Vol] 11.8 g/dL Low 12.0-16.0 [facility] Laboratory - Chemistry and C hemistry - challengeon 03-31-2024 Albumin [Mass/Vol] 3.7 g/dL 3.4-5.0 [facility] ALP [Catalytic activity/Vol] 51 U/L 46-116 [facility] ALT [Catalytic activity/Vol] 29 U/L 14-59 [facility] AST [Catalytic activity/Vol] 18 U/L 15-37 [facility] Bilirubin [Mass/Vol] 0.4 mg/dL 0.2-1.0 [facility] Calcium [Mass/Vol] 9.0 mg/dL 8.5-10.1 [facility] Chloride [Moles/Vol] 106 mmol/L 98-107 [facility] CO2 [Moles/Vol] 28.6 mmol/L 21.0-32.[address] [facility] Creatinine [Mass/Vol] 0.88 mg/dL 0.55-1.02 [facility] GFR/1.73 sq M.predicted MDRD (S/P/Bld) [Vol rate/Area] mL/min/{1.73_m2} >=60 [facility] Glucose [Mass/Vol] 89 mg/dL 74-106 [facility] Potassium [Moles/Vol] 4.1 mmol/L 3.5-5.1 [facility] Protein [Mass/Vol] 7.1 g/dL 6.4-8.2 [facility] Sodium [Moles/Vol] 142 mmol/L 136-145 [facility] TSH Qn 2.110 m[IU]/L 0.358-3.740 [facility] Urea nitrogen [Mass/Vol] 15.0 mg/dL 7.0-18.0 [facility] Urea nitrogen/Creatinine [Mass ratio] 17.0 mg/mg [facility] Laboratory - Hematology and Cell countson 03-31-2024 Immature granulocytes/100 WBC (Bld) 0.2 % 0.0-0.5 [facility] Leukocytes [#/volume] correc ana for nucleated erythrocytes in Blood by Automated counon 03-31-2024 WBC corrected for nucl RBC Auto (Bld) [#/Vol] 4.1 10 3/uL 4.0-11.0 [facility] Lymphocytes Auto (Bld) [#/Vo l]on 03-31-2024 Lymphocytes (Bld) [#/Vol] 1.6 10 3/uL 1.2-3.8 [facility] Lymphocytes/100 WBC Auto (Bl d)on 03-31-2024 Lymphocytes/100 WBC (Bld) 38.5 % 20.5-60.0 [facility] MCH Auto (RBC) [Entitic mass ]on 03-31-2024 MCH (RBC) [Entitic mass] 28.6 pg 26.7-34.0 [facility] MCHC Auto (RBC) [Mass/Vol]on 03-31-2024 MCHC (RBC) [Mass/Vol] 31.4 g/dL 29.9-35.2 [facility] MCV Auto (RBC) [Entitic vol] on 03-31-2024 MCV (RBC) [Entitic vol] 91.0 fL 81.0-99.0 [facility] Monocytes Auto (Bld) [#/Vol] on 03-31-2024 Monocytes (Bld) [#/Vol] 0.4 10 3/uL 0.3-0.8 [facility] Monocytes/100 WBC Auto (Bld) on 03-31-2024 Monocytes/100 WBC (Bld) 10.2 % 1.7-12.0 [facility] Neutrophils Auto (Bld) [#/Vo l]on 03-31-2024 Neutrophils (Bld) [#/Vol] 1.8 10 3/uL 1.4-6.5 [facility] Neutrophils/100 WBC Auto (Bl d)on 03-31-2024 Neutrophils/100 WBC (Bld) 44.0 % 43.0-75.0 [facility] No Panel Informationon 03-31 Eosinophils # (Auto) 0.2 10 3/uL 0.0-0.7 [facility] Immature Granulocyte # (Auto) 0.01 10 3/uL 0.00-0.03 [facility] Urine Random Creatinine <13.00 mg/dL Low 20.00-300.0 0 [facility] Urine Random Total Protein <6.0 mg/dL <=11.9 [facility] Platelet mean volume Auto (B ld) [Entitic vol]on 03-31-2024 Platelet mean volume (Bld) [Entitic vol] 10.0 fL 9.5-13.5 [facility] Platelets Auto (Bld) [#/Vol] on 03-31-2024 Platelets (Bld) [#/Vol] 323 10 3/uL 150-450 [facility] RBC Auto (Bld) [#/Vol]on RBC (Bld) [#/Vol] 4.13 10 6/uL Low 4.20-5.40 [facility] Serum or plasma albumin/glob ulin mass ratioon 03-31-2024 Albumin/Globulin [Mass ratio] 1.1 {ratio} [facility] Serum or plasma anion gap de terminationon 03-31-2024 Anion gap [Moles/Vol] 11.5 mmol/L Fi [facility] Urine protein/creatinine rat ioon 03-31-2024 Protein/Creatinine (U) [Ratio] 0.00 [facility] Estimated glomerular filtrat ion rate (GFR) non- Americanon 01-31-2024 GFR/1.73 sq M.predicted among non-blacks MDRD (S/P/Bld) [Vol rate/Area] mL/min/{1.73_m2} >=60 [facility] Laboratory - Chemistry and C hemistry - challengeon 01-31-2024 Calcium [Mass/Vol] 9.9 mg/dL 8.5-10.1 [facility] Chloride [Moles/Vol] 108 mmol/L High 98-107 [facility] CO2 [Moles/Vol] 25.0 mmol/L 21.0-32.[address] [facility] Creatinine [Mass/Vol] 0.80 mg/dL 0.55-1.02 [facility] GFR/1.73 sq M.predicted MDRD (S/P/Bld) [Vol rate/Area] mL/min/{1.73_m2} >=60 [facility] Glucose [Mass/Vol] 85 mg/dL 74-106 [facility] Potassium [Moles/Vol] 4.4 mmol/L 3.5-5.1 [facility] Sodium [Moles/Vol] 143 mmol/L 136-145 [facility] Urea nitrogen [Mass/Vol] 26.0 mg/dL High 7.0-18.0 [facility] Urea nitrogen/Creatinine [Mass ratio] 32.5 mg/mg [facility] No Panel Informationon 01-30 25-Hydroxy Vitamin D Total 75.9 ng/mL [facility] Comment on above: <20 ng/mL Vit D defi cient20-<30 ng/mL Vit D upevclqpnzsy23-795 ng/mL Vit D sufficient>100 ng/mL Potential Toxicity Serum or plasma anion gap de terminationon 01-31-2024 Anion gap [Moles/Vol] 14.4 mmol/L [facility] XR hip BI w [id number] 11-03-19 XR hip BI w [id number] [facility] [place] [address] [place] [address] XRay Report Signed Patient: Tiana Louis MR#: [id number] : 1945 Acct:[id number] Age/Sex: 78 / F ADM Date: 11/03/23 Loc: [facility] Room: Type: [facility] Attending Dr: Coy Cassidy II, MD [...] Tomeka Obando M.D.11/03/2023 11:09 AM Dictation Location: [facility] Transcribed By: [facility] 11/03/23 110 Dictated By: Tomeka Obando MD 11/03/23 1106 Signed By: 11/03/23 110 Normal [facility] XR hand BI 3Von 07-13-2023 XR hand BI 3V [facility] [place] [place] [address] XRay Report Signed Patient: Tiana Louis MR#: [id number] : 1945 Acct:[id number] Age/Sex: 78 / F ADM Date: 07/13/23 Loc: [facility] Room: Type: [facility] Attending Dr: Barry Patel MD Copies [...] Vaibhav Lemus M.D.07/13/2023 4:07 PM Dictation Location: [place] [address] Transcribed By: STEF 07/13/23 1607 Dictated By: Vaibhav Lemus DO 07/13/23 1606 Signed By: 07/13/23 1607 Normal [facility] MM screening mammo BI w/CADo n 07-08-2023 MM screening mammo BI w/CAD [facility] Main [address] [address] Mammography Report Signed Patient: Tiana Louis MR#: [id number] : 1945 Acct:[id number] Age/Sex: 78 / F ADM Date: 07/08/23 Loc: [place] Room: Type: REG [facility] Attending Dr: Referral [...] Tomeka Obando M.D.07/08/2023 2:27 PM Dictation Location: [facility] Transcribed By: [facility] 07/08/231426 Dictated By: Tomeka Obando MD 07/08/231422 Signed By: 07/08/231426 Normal [facility] XR shoulder LT min 2V*on XR shoulder LT min 2V* [facility] [address] XRay Report Signed Patient: Tiana Louis MR#: [id number] : 1945 Acct:[id number] Age/Sex: 78 / F ADM Date: 06/08/23 Loc: [facility] Room: Type: [facility] CLI Attending Dr: Barry Patel MD Copies [...] Tomeka Obando M.D.06/08/2023 4:48 PM Dictation Location: [place] [address] Transcribed By: [facility] 06/08/23 1648 Dictated By: Tomeka Obando MD 06/08/23 1637 Signed By: 06/08/23 1648 Normal [facility] Alanine aminotransferase [En zymatic activity/volume] in Serum or PlasmaOrdered By: Barry Patel on 02-12-2023 ALT [Catalytic activity/Vol] 17 U/L 7-52 [facility] Albumin [Mass/volume] in Ser um or Plasma by Bromocresol green (BCG) dye binding methoOrdered By: Barry Patel on 02-12-2023 Albumin BCG dye [Mass/Vol] 4.0 g/dL 3.5-5.7 [facility] Alkaline phosphatase [Enzyma tic activity/volume] in Serum or PlasmaOrdered By: Barry Patel on 02-12-2023 ALP [Catalytic activity/Vol] 46 U/L 34-104 [facility] Aspartate aminotransferase [ Enzymatic activity/volume] in Serum or PlasmaOrdered By: Barry Patel on 02-12-2023 AST [Catalytic activity/Vol] 14 U/L 13-39 [facility] Basophils Auto (Bld) [#/Vol] Ordered By: Barry Patel on 02-12-2023 Basophils (Bld) [#/Vol] 0.1 10*3/uL 0.0-0.2 [facility] Basophils/100 WBC Auto (Bld) Ordered By: Barry Patel on 02-12-2023 Basophils/100 WBC (Bld) 2.1 % . [facility] Bilirubin.total [Mass/volume ] in Serum or PlasmaOrdered By: Barry Patel on 02-12-2023 Bilirubin [Mass/Vol] 0.4 mg/dL 0.3-1.0 [facility] Calcium [Mass/volume] in Ser um or PlasmaOrdered By: Barry Patel on 02-12-2023 Calcium [Mass/Vol] 9.6 mg/dL 8.6-10.3 [facility] Carbon dioxide, total [Moles /volume] in Serum or PlasmaOrdered By: Barry Patel on 02-12-2023 CO2 [Moles/Vol] 24.6 mmol/L 21.0-31.[address] [facility] Chloride [Moles/volume] in S dulce or PlasmaOrdered By: Barry Patel on 02-12-2023 Chloride [Moles/Vol] 112 mmol/L 98-107 [facility] Creatinine [Mass/volume] in Serum or PlasmaOrdered By: Barry Patel on 02-12-2023 Creatinine [Mass/Vol] 0.78 mg/dL 0.60-1.20 [facility] Eosinophils Auto (Bld) [#/Vo l]Ordered By: Barry Patel on 02-12-2023 Eosinophils (Bld) [#/Vol] 0.5 10*3/uL 0.0-0.45 [facility] Eosinophils/100 WBC Auto (Bl d)Ordered By: Barry Patel on 02-12-2023 Eosinophils/100 WBC (Bld) 10.5 % . [facility] Erythrocyte distribution wid th Auto (RBC) [Ratio]Ordered By: Barry Patel on 02-12-2023 Erythrocyte distribution width (RBC) [Ratio] 14.7 % 11.9-15.3 [facility] Globulin Calc (S) [Mass/Vol] Ordered By: Barry Patel on 02-12-2023 Globulin (S) [Mass/Vol] 2.4 g/dL [facility] Glucose [Mass/volume] in Ser um or PlasmaOrdered By: Barry Patel on 02-12-2023 Glucose [Mass/Vol] 68 mg/dL 70-100 [facility] Hematocrit Auto (Bld) [Volum e fraction]Ordered By: Barry Patel on 02-12-2023 Hematocrit (Bld) [Volume fraction] 38.2 % 34.0-46.4 [facility] Hemoglobin [Mass/volume] in BloodOrdered By: Barry Patel on 02-12-2023 Hemoglobin (Bld) [Mass/Vol] 12.4 g/dL 11.8-15.4 [facility] Leukocytes [#/volume] correc ana for nucleated erythrocytes in Blood by Automated counOrdered By: Barry Patel on 02-12-2023 WBC corrected for nucl RBC Auto (Bld) [#/Vol] 4.6 10*3/uL 3.8-11.6 [facility] Lymphocytes Auto (Bld) [#/Vo l]Ordered By: Barry Patel on 02-12-2023 Lymphocytes (Bld) [#/Vol] 1.5 10*3/uL 1.00-4.8 [facility] Lymphocytes/100 WBC Auto (Bl d)Ordered By: Barry Patel on 02-12-2023 Lymphocytes/100 WBC (Bld) 31.3 % . [facility] MCH Auto (RBC) [Entitic mass ]Ordered By: Barry Patel on 02-12-2023 MCH (RBC) [Entitic mass] 29.7 pg 24.7-34.3 [facility] MCHC Auto (RBC) [Mass/Vol]Or dered By: Barry Patel on 02-12-2023 MCHC (RBC) [Mass/Vol] 32.5 g/dL 32.0-35.0 [facility] MCV Auto (RBC) [Entitic vol] Ordered By: Barry Patel on 02-12-2023 MCV (RBC) [Entitic vol] 91.4 fL 80-100 [facility] Monocytes Auto (Bld) [#/Vol] Ordered By: Barry Patel on 02-12-2023 Monocytes (Bld) [#/Vol] 0.5 10*3/uL 0.0-0.8 [facility] Monocytes/100 WBC Auto (Bld) Ordered By: Barry Patel on 02-12-2023 Monocytes/100 WBC (Bld) 9.9 % . [facility] Neutrophils Auto (Bld) [#/Vo l]Ordered By: Barry Patel on 02-12-2023 Neutrophils (Bld) [#/Vol] 2.1 10*3/uL 1.8-7.7 [facility] Neutrophils/100 WBC Auto (Bl d)Ordered By: Barry Patel on 02-12-2023 Neutrophils/100 WBC (Bld) 46.2 % . [facility] No Panel InformationOrdered By: Barry Patel on 02-12-2023 Estimated GFR (CKD-EPI) > 60.0 mL/Min [facility] Creatinine Clearance (Chem N/A [facility] Nucleated erythrocytes [Pres ence] in Blood by Automated countOrdered By: Barry Patel on 02-12-2023 Nucleated RBC Auto Ql (Bld) 0.0 /100{WBC} 0-0.5 [facility] Platelet mean volume Auto (B ld) [Entitic vol]Ordered By: Barry Patel on 02-12-2023 Platelet mean volume (Bld) [Entitic vol] 8.3 fL 6.3-10.7 [facility] Platelets Auto (Bld) [#/Vol] Ordered By: Barry Patel on 02-12-2023 Platelets (Bld) [#/Vol] 287 10*3/uL 150-450 [facility] Potassium [Moles/volume] in Serum or PlasmaOrdered By: Barry Patel on 02-12-2023 Potassium [Moles/Vol] 4.9 mmol/L 3.5-5.1 [facility] Protein [Mass/volume] in Ser um or PlasmaOrdered By: Barry Patel on 02-12-2023 Protein [Mass/Vol] 6.4 g/dL 6.4-8.9 [facility] RBC Auto (Bld) [#/Vol]Ordere d By: Barry Patel on 02-12-2023 RBC (Bld) [#/Vol] 4.18 10*6/uL 3.60-5.00 [facility] Serum or plasma albumin/glob ulin mass ratioOrdered By: Barry Patel on 02-12-2023 Albumin/Globulin [Mass ratio] 1.7 {ratio} [facility] Serum or plasma anion gap de terminationOrdered By: Barry Patel on 02-12-2023 Anion gap [Moles/Vol] 11.3 mmol/L 6.0-15.0 [facility] Sodium [Moles/volume] in Ser um or PlasmaOrdered By: Barry Patel on 02-12-2023 Sodium [Moles/Vol] 143 mmol/L 136-145 [facility] Urea nitrogen [Mass/volume] in Serum or PlasmaOrdered By: Barry Patel on 02-12-2023 Urea nitrogen [Mass/Vol] 24 mg/dL 7-25 [facility] WBC Auto (Bld) [#/Vol]Ordere d By: Barry Patel on 02-12-2023 WBC (Bld) [#/Vol] 4.6 10*3/uL 3.8-11.6 [facility] CBC AUTO DIFFon 11-17-2022 BASO # 0.0 103/ul Normal 0.0-0.1 [facility] Comment on above: Performed By: #### D ATCBC #### [facility] [address] [place] [address] Dr. Jackeline Thakkar Basophils/100 WBC (Bld) 0.8 % Normal 0.2-2.0 [facility] Comment on above: Performed By: #### D ATCBC #### [facility] [address] [place] [address] Dr. Jackeline Thakkar EO # 0.1 103/ul Normal 0.0-0.7 [facility] Comment on above: Performed By: #### D ATCBC #### [facility] [address] [place] [address] Dr. Jackeline Thakkar Eosinophils/100 WBC (Bld) 2.4 % Normal 0.9-7.0 [facility] Comment on above: Performed By: #### D ATCBC #### [facility] [address] [place] [address] Dr. Jackeline Thakkar Erythrocyte distribution width (RBC) [Ratio] 14.4 % Normal 11.0-15.0 [facility] Comment on above: Performed By: #### D ATCBC #### [facility] [address] [place] [address] Dr. Jackeline Thakkar Hematocrit (Bld) [Volume fraction] 40.8 % Normal 36.0-48.0 [facility] Comment on above: Performed By: #### D ATCBC #### [facility] [address] [address] [address] Jackeline Thakkar Hemoglobin (Bld) [Mass/Vol] 13.5 g/dL Normal 12.0-16.0 [facility] Comment on above: Performed By: #### D ATCBC #### [facility] [address] [address] [address] Jackeline Thakkar IG # 0.01 10e3/ul Normal 0.00-0.03 [facility] Comment on above: Performed By: #### D ATCBC #### [facility] [address] [place] [address] Dr. Jackeline Thakkar IG % 0.2 % Normal 0.0-0.5 [facility] Comment on above: Performed By: #### D ATCBC #### [facility] [address] [place] [address] Dr. Jackeline Thakkar LYMPH # 1.4 103/ul Normal 1.2-3.8 [facility] Comment on above: Performed By: #### D ATCBC #### [facility] [address] [place] [address] Dr. Jackeline Thakkar Lymphocytes/100 WBC (Bld) 29.2 % Normal 20.5-60.0 [facility] Comment on above: Performed By: #### D ATCBC #### [facility] [address] [place] [address] Dr. Jackeline Thakkar MCH (RBC) [Entitic mass] 30.1 pg Normal 26.7-34.0 [facility] Comment on above: Performed By: #### D ATCBC #### [facility] [address] [address] [address] Jackeline Thakkar MCHC (RBC) [Mass/Vol] 33.1 g/dL Normal 29.9-35.2 [facility] Comment on above: Performed By: #### D ATCBC #### [facility] [id number] Jackeline Thakkar MCV (RBC) [Entitic vol] 91.1 fL Normal 81.0-99.0 [facility] Comment on above: Performed By: #### D ATCBC #### [facility] [address] [address] [address] Jackeline Thakkar MONO # 0.6 103/ul Normal 0.3-0.8 [facility] Comment on above: Performed By: #### D ATCBC #### [facility] [address] [place] [address] Dr. Jackeline Thakkar Monocytes/100 WBC (Bld) 11.4 % Normal 1.7-12.0 [facility] Comment on above: Performed By: #### D ATCBC #### [facility] [address] [place] [address] Dr. Jackeline Thakkar NEUT # 2.8 103/ul Normal 1.4-6.5 [facility] Comment on above: Performed By: #### D ATCBC #### [facility] [address] [place] [address] Dr. Jackeline Thakkar Neutrophils/100 WBC (Bld) 56.0 % Normal 43.0-75.0 [facility] Comment on above: Performed By: #### D ATCBC #### [facility] [address] [place] [address] Dr. Jackeline Thakkar Platelet mean volume (Bld) [Entitic vol] 9.8 fL Normal 9.5-13.5 [facility] Comment on above: Performed By: #### D ATCBC #### [facility] [address] [place] [address] Dr. Jackeline Thakkar PLT 352 103/ul Normal 150-450 [facility] Comment on above: Performed By: #### D ATCBC #### [facility] [address] [place] [address] Dr. Jackeline Thakkar RBC 4.48 106/ul Normal 4.20-5.40 [facility] Comment on above: Performed By: #### D ATCBC #### [facility] [address] [place] [address] Dr. Jackeline Thakkar WBC 4.9 103/ul Normal 4.0-11.0 [facility] Comment on above: Performed By: #### D ATCBC #### [facility] [address] [place] [address] Dr. Jackeline Thakkar RYLAN - VITAMIN Don 11-17-2022 VIT D 25-OH 70.3 ng/mL Normal [facility] Comment on above: Performed By: #### D SUMMER DATBMP #### [facility] [address] [place] [address] Dr. Jackeline Thakkar VIT D RANGES SEE BELOW Normal [facility] Comment on above: Result Comment: <20 ng/mL Vit D deficient 20 - <30 ng/mL Vit D insufficient 30 - 100 ng/mL Vit D sufficient >100 ng/mL Potential Toxicity Performed By: #### D SUMMER DATBMP #### [facility] [address] [place] [address] Dr. Jackeline Thakkar RYLAN- BMP WITH LIPIDon 2022 Anion gap [Moles/Vol] 13.4 mmol/L Normal [facility] Comment on above: Performed By: #### D RYLAN WHEELERBMP #### [facility] [address] [place] [address] Dr. Jackeline Thakkar Calcium [Mass/Vol] 9.7 mg/dL Normal 8.5-10.1 [facility] Comment on above: Performed By: #### D SUMMER DATBMP #### [facility] [address] [place] [address] Dr. Jackeline Thakkar Chloride [Moles/Vol] 106 mmol/L Normal 98-107 [facility] Comment on above: Performed By: #### D SUMMER DATBMP #### [facility] [address] [place] [address] Dr. Jackeline Thakkar Cholesterol [Mass/Vol] 291 mg/dL Critically high <=200 [facility] Comment on above: Performed By: #### D SUMMER DATBMP #### [facility] [address] [address] [address] Jackeline Thakkar Cholesterol in HDL [Mass/Vol] 70 mg/dL Critically high 40-60 [facility] Comment on above: Performed By: #### D ATMAURATBelle, DATBMP #### [facility] [address] [address] [address] Jackeline Thakkar Cholesterol in LDL [Mass/Vol] 193.6 mg/dL Normal [facility] Comment on above: Performed By: #### D ATMAURATBelle, DATBMP #### [facility] [address] [address] [address] Jackeline Thakkar CO2 [Moles/Vol] 20.9 mmol/L Critically low 21.0-32.0 [facility] Comment on above: Performed By: #### D ATMAURATBelle, DATBMP #### [facility] [address] [place] [address] Dr. Jackeline Thakkar Creatinine [Mass/Vol] 0.75 mg/dL Normal 0.55-1.02 [facility] Comment on above: Performed By: #### D ATJEFF, DATBMP #### [facility] [address] [address] [address] Jackeline Thakkar EGFR-AF STATELESS >60 Normal >=60 [facility] Comment on above: Performed By: #### D ATJEFF, DATBMP #### [facility] [address] [address] [address] Jackeline Thakkar EGFR-NON AF STATELESS >60 Normal >=60 [facility] Comment on above: Performed By: #### D ATMAURATBelle, DATBMP #### [facility] [address] [address] [address] Jackeline Thakkar Glucose [Mass/Vol] 104 mg/dL Normal 74-106 [facility] Comment on above: Performed By: #### D ATVITD, DATBMP #### [facility] [address] [address] [address] Jackeline Thakkar HDL NORMAL > or = 60 mg/dl - LO W CARDIOVASCULAR RISK <40 mg/dl - HIGH CARDIOVASCULAR RISK Normal [facility] Comment on above: Performed By: #### D SUMMER DATBMP #### [facility] [address] [address] [address] Jackeline Thakkar LDL CALC NORMAL SEE BELOW Normal [facility] Comment on above: Result Comment: <100 mg/dl OPTIMAL 100 - 129 mg/dl NEAR OR ABOVE OPTIMAL 130 - 159 mg/dl BORDERLINE HIGH 160 - 189 mg/dl HIGH >190 mg/dl VERY HIGH Performed By: #### D SUMMER DATBMP #### [facility] [address] [address] [address] Jackeline Thakkar Potassium [Moles/Vol] 4.3 mmol/L Normal 3.5-5.1 [facility] Comment on above: Performed By: #### D SUMMER, DATBMP #### [facility] [address] [address] [address] Jackeline Thakkar Sodium [Moles/Vol] 136 mmol/L Normal 136-145 [facility] Comment on above: Performed By: #### D SUMMER DATBMP #### [facility] [address] [address] [address] Jackeline Thakkar Triglyceride [Mass/Vol] 137 mg/dL Normal <=150 [facility] Comment on above: Performed By: #### D SUMMER DATBMP #### [facility] [address] [address] [address] Jackeline Thakkar Urea nitrogen [Mass/Vol] 30.0 mg/dL Critically high 7.0-18.0 [facility] Comment on above: Performed By: #### D SUMMER DATBMP #### [facility] [address] [address] [address] Jackeline Thakkar Urea nitrogen/Creatinine [Mass ratio] 40.0 mg/mg Normal [facility] Comment on above: Performed By: #### D SUMMER, DATBMP #### [facility] [address] [address] [address] Jackeline Thakkar VLDL CALC 27.4 mg/dL Normal [facility] Comment on above: Performed By: #### D ATVITD, DATBMP #### [facility] [address] [address] [address] Jackeline Thakkar XR hip RT min 2V(w/wo pelvis )*on 10-29-2022 XR hip RT min 2V(w/wo pelvis)* [facility] Other XR hip RT min 2V(w/wo pelvis)* [facility] Other XR hip RT min 2V(w/wo pelvis)* [address] [place] [address] [facility] Other XR hip RT min 2V(w/wo pelvis)* [place] [address] [facility] Other XR hip RT min 2V(w/wo pelvis)* XRay Report [facility] Other XR hip RT min 2V(w/wo pelvis)* Signed [facility] Other XR hip RT min 2V(w/wo pelvis)* Patient: Tiana Louis MR#: [id number] [facility] Other XR hip RT min 2V(w/wo pelvis)* : 1945 Acct:[id number] [facility] Other XR hip RT min 2V(w/wo pelvis)* Age/Sex: 77 / F ADM Date: 10/29/22 [facility] Other XR hip RT min 2V(w/wo pelvis)* Loc: [facility]XD Room: Type: [facility] Other XR hip RT min 2V(w/wo pelvis)* Attending Dr: Barry Valenzuela MD [facility] Other XR hip RT min 2V(w/wo pelvis)* Copies to: Barry Valenzuela MD [facility] Other XR hip RT min 2V(w/wo pelvis)* Ordering Provider: Barry Valenzuela MD [facility] Other XR hip RT min 2V(w/wo pelvis)* Date of Service: 10/29/22 [facility] Other XR hip RT min 2V(w/wo pelvis)* XR/XR hip RT min 2V(w/wo pelvis)*: Bilateral sacroiliitis [facility] Other XR hip RT min 2V(w/wo pelvis)* RIGHT HIP - 2 views: [facility] Other XR hip RT min 2V(w/wo pelvis)* CLINICAL HISTORY: Low back pain radiating into right hip and groin. 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 Please note that the femoral hardware is incompletely visualized on today's study. [facility] Other XR hip RT min 2V(w/wo pelvis)* Additional hardware is seen at the lumbosacral junction without evidence of hardware complication. [facility] Other XR hip RT min 2V(w/wo pelvis)* Degenerative changes are noted involving the SI joints. Left hip appears unremarkable. No acute [facility] Other XR hip RT min 2V(w/wo pelvis)* bony process. [facility] Other XR hip RT min 2V(w/wo pelvis)* XR/XR hip RT min 2V(w/wo pelvis)* [facility] Other XR hip RT min 2V(w/wo pelvis)* IMPRESSION: [facility] Other XR hip RT min 2V(w/wo pelvis)* NO ACUTE BONY PROCESS OR EVIDENCE OF HARDWARE COMPLICATION.. [facility] Other XR hip RT min 2V(w/wo pelvis)* Impression dictated by: Mir Delong Jr., D.O.10/29/2022 3:09 PM [facility] Other XR hip RT min 2V(w/wo pelvis)* Dictation Location: RADIO-PC-14 [facility] Other XR hip RT min 2V(w/wo pelvis)* Transcribed By: PWS 10/29/22 1506 [facility] Other XR hip RT min 2V(w/wo pelvis)* Dictated By: Mir Delong Jr, DO 10/29/22 1500 [facility] Other XR hip RT min 2V(w/wo pelvis)* Signed By: [facility] Other XR hip RT min 2V(w/wo pelvis)* 10/29/22 1828 [facility] Other Creatinine (Bld) [Mass/Vol]O rdered By: Benigno Kennedy on 08-27-2022 Creatinine [Mass/Vol] 0.7 mg/dL 0.6-1.3 [facility] Comment on above: ER/ESD physician is notified/shown all ISTAT results.Critical values may be confirmed by laboratory testing ifdeemed necessary by ER attending doctor. No Panel InformationOrdered By: Benigno Kennedy on 08-27-2022 POC Estimated GFR > 60 [facility] Comment on above: GFR estimated refere nce range: According to KDOQI guidelines, <60 ml/min/1.73m2 is sufficient to diagnose a patient with chronic kidney disease. POC Estimated GFR Non- Amer > 60 [facility] TSHon 06-22-2022 TSH 2.766 uIU/mL Normal 0.358-3.740 [place] Comment on above: Performed By: #### T #### [facility] [address] [address] [address] Jackeline Thakkar VIT D 25-OH LABCORPon 2021 Vitamin D, 25-Hydroxy 50.3 ng/mL Normal 30.0-100.0 [facility] Comment on above: Result Comment: Shakira min D deficiency has been defined by the [place] [employer] and an Endocrine Society practice guideline as a level of serum 25-OH vitamin D less than 20 ng/mL (1,2). The Endocrine Society went on to further define vitamin D insufficiency as a level between 21 and 29 ng/mL (2). 1. IOM ([place] of [employer]). 2010. Dietary reference intakes for calcium and D. [place]: The National Academies Press. 2. Lolly MF, Raven ESTES, Kitty RAMACHANDRAN, et al. Evaluation, treatment, and prevention of vitamin D deficiency: an Endocrine Society clinical practice guideline. JCEM. 2010; 96(7):1911-30. Performed By: #### V ITADLC #### [facility] [address] [place] [address] Dr. Jackeline Thakkar PROF CHEM 8 (BAS METB)on Anion gap [Moles/Vol] 12.3 mmol/L Normal [facility] Comment on above: Performed By: #### B MP #### [facility] [address] [address] [address] Jackeline Thakkar Calcium [Mass/Vol] 9.0 mg/dL Normal 8.5-10.1 [facility] Comment on above: Performed By: #### B MP #### [facility] [address] [address] [address] Jackeline Thakkar Chloride [Moles/Vol] 106 mmol/L Normal 98-107 [facility] Comment on above: Performed By: #### B MP #### [facility] [address] [address] [address] Jackeline Thakkar CO2 [Moles/Vol] 26.5 mmol/L Normal 21.0-32.0 [facility] Comment on above: Performed By: #### B MP #### [facility] [address] [address] [address] Jackeline Thakkar Creatinine [Mass/Vol] 0.83 mg/dL Normal 0.55-1.02 [facility] Comment on above: Performed By: #### B MP #### [facility] [address] [place] [address] Dr. Jackeline Thakkar EGFR-AF STATELESS >60 Normal >=60 [facility] Comment on above: Performed By: #### B MP #### [facility] [address] [address] [address] Jackeline Thakkar EGFR-NON AF STATELESS >60 Normal >=60 [facility] Comment on above: Performed By: #### B MP #### [facility] [address] [address] [address] Jackeline Thakkar Glucose [Mass/Vol] 92 mg/dL Normal 74-106 [facility] Comment on above: Performed By: #### B MP #### [facility] [address] [place] [address] Dr. Jackeline Thakkar Potassium [Moles/Vol] 3.8 mmol/L Normal 3.5-5.1 [facility] Comment on above: Performed By: #### B MP #### [facility] [address] [place] [address] Dr. Jackeline Thakkar Sodium [Moles/Vol] 141 mmol/L Normal 136-145 [facility] Comment on above: Performed By: #### B MP #### [facility] [address] [place] [address] Dr. Jackeline Thakkar Urea nitrogen [Mass/Vol] 13.0 mg/dL Normal 7.0-18.0 [facility] Comment on above: Performed By: #### B MP #### [facility] [address] [place] [address] Dr. Jackeline Thakkar Urea nitrogen/Creatinine [Mass ratio] 15.7 mg/mg Normal [facility] Comment on above: Performed By: #### B MP #### [facility] [address] [place] [address] Dr. Jackeline Thakkar CNOVon 07-16-2018 CNOV Office Visit (PULMAV) TIANA BOYLE ([id number]) 1945 [facility] Time Provider Department04/11/18 9:30 AM RENATA [...] course of antibiotics. She wasalso seen by Vehicle Upholsterer Dr. CARRASCO, I have reviewed his notes( [...] itShe is retired, lives with her in [place]. sHE used to work in [place], taking/Resultly. 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 [...] Chronic obstructive pulmonary disease, unspecified COPD type ([facility])(Z87.891) Former smokerPlan:SPIROMETRY WITH DILATOR IF [...] results and coordinating care.Referring Provider: CHUCHO SARAVIA [[id number]]Allergies As of Date: 04/11/2018(No Known Allergies)Date Reviewed: 04/11/2018Reviewed by: Zoila Santa (Tech) - Fully AssessedReason for Visit: New Patient [172] Cough [28] Shortness of Breath [227]Primary Visit Diagnosis:Chronic cough [R05] Other Visit Diagnoses:Chronic obstructive pulmonary disease, unspecified COPD type (HCC) [J44.9] Former smoker [Z87.891]Order(s):PULMI OTTONIEL FLEXHALER 180 mcg/actuation aepbInhale 1 Puff as instructed twice daily.Disp: 1 InhalerRfl: 3 SPIROMETRY WITH DILATOR IF OBSTRUCTED [2345080] Order #: [id number] FUTURE LUNG DIFFUSION CAPACITY (DLCO) [1137142] Order #: [id number] FUTURE roflumilast (DALIRESP) 250 mcg tabTake 250 [...] on file.Follow-up and Disposition History RecordedEncounter Number: [id number] Status:Closed by RENATA YADAV MD on 04/11/18 [facility]IA[facility] BOYLE ([id number]) 1945 [facility] Time Provider Department04/11/18 RENATA YADAV PULCHAYOV During your visit today, we recorded the following information about you:Kiesha Hairston, RN, RN 04/11/2018 3:38 PM SignedPt just seen in the office todayCalling to inform the prescriptions for Pulmicort and Roflumilast never made itto her PharmacyAsking if these can be RESENT pleaseVerified correct pharmacy is [facility] needed pt's call back # [phone] Andrews Ma 04/11/2018 3:56 PM SignedJust completed [...] by RENATA YADAV MD on 04/12/18 Normal [facility] PROGRESSon 04-11-2018 Protein HNO ID: [id number]: Renata SuriService: (none)Author Type: PhysicianType: Progress NotesFiled: [...] course ofantibiotics. She was also seen by Vehicle Upholsterer Dr. CARRASCO, I havereviewed his notes( IGE [...] itShe is retired, lives with her in [place]. sHE used to work in [place], [place]. 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 Normal [facility] SR-CT CHEST W CON IMPORTon 0 12-29-2017 SR-CT CHEST W CON IMPORT Images were obtained outside of [facility] [id number] Normal [facility] OT-XR CHEST 2 V IMPORTon OT-XR CHEST 2 V IMPORT Images were obtai donald outside of [facility] [id number] Normal [facility] OT-XR CHEST 2 V IMPORTon OT-XR CHEST 2 V IMPORT Images were obtai donald outside of [facility] [id number] Normal [facility] OT-XR CHEST 2 V IMPORTon OT-XR CHEST 2 V IMPORT Images were obtai donald outside of [facility] [id number] Normal [facility] Vital Signs Date Time Vital Sign Value Performing Clinician Facility 06-26-2024 10:59-0400 Body height 165.1 cm DO Chucho Ball Work Phone: [facility] 06-26-2024 10:59-0400 Body mass index (BMI) [Ratio] 31.2 kg/m2 DO Chucho Ball Work Phone: [facility] 06-26-2024 10:59-0400 Body weight 85.27 kg DO Chucho Ball Work Phone: [facility] 06-26-2024 10:59-0400 Diastolic blood pressure 87 mm[Hg] DO Chucho Ball Work Phone: [facility] 06-26-2024 10:59-0400 Heart rate 57 /min DO Chucho Ball Work Phone: [facility] 06-26-2024 10:59-0400 Respiratory rate 12 /min DO Chucho Ball Work Phone: [facility] 06-26-2024 10:59-0400 Systolic blood pressure 138 mm[Hg] DO Chucho Ball Work Phone: [facility] 03-31-2024 09:32-0400 [facility] height [facility] 03-31-2024 09:32-0400 Body mass index (BMI) [Ratio] 30.9 kg/m2 [facility] 03-31-2024 09:32-0400 Body weight 84.42 [facility] 03-31-2024 09:32-0400 Diastolic blood pressure 73 mm[Hg] [facility] 03-31-2024 09:32-0400 Heart rate 52 /min [facility] 03-31-2024 09:32-0400 Respiratory rate 16 /min [facility] 03-31-2024 09:32-0400 Systolic blood pressure 147 mm[Hg] [facility] 01-14-2024 09:45-0400 Body height 165.1 cm DO Chucho Ball Work Phone: [facility] 01-14-2024 09:45-0400 Body mass index (BMI) [Ratio] 30.4 kg/m2 DO Chucho Ball Work Phone: [facility] 01-14-2024 09:45-0400 Body weight 82.8 kg DO Chucho Ball Work Phone: [facility] 01-14-2024 09:45-0400 Diastolic blood pressure 88 mm[Hg] DO Chucho Ball Work Phone: [facility] 01-14-2024 09:45-0400 Heart rate 67 /min DO Chucho Ball Work Phone: [facility] 01-14-2024 09:45-0400 Respiratory rate 20 /min DO Chucho Ball Work Phone: [facility] 01-14-2024 09:45-0400 Systolic blood pressure 157 mm[Hg] DO Chucho Ball Work Phone: [facility] 12-21-2023 10:46-0400 Body height 165.1 cm DO Chucho Ball Work Phone: [facility] 12-21-2023 10:46-0400 Body mass index (BMI) [Ratio] 30.4 kg/m2 DO Chucho Ball Work Phone: [facility] 12-21-2023 10:46-0400 Body weight 83 kg DO Chucho Ball Work Phone: [facility] 12-21-2023 10:46-0400 Diastolic blood pressure 83 mm[Hg] DO Chucho Ball Work Phone: [facility] 12-21-2023 10:46-0400 Heart rate 69 /min DO Chucho Ball Work Phone: [facility] 12-21-2023 10:46-0400 Respiratory rate 16 /min DO Chucho Ball Work Phone: [facility] 12-21-2023 10:46-0400 Systolic blood pressure 158 mm[Hg] DO Chucho Ball Work Phone: [facility] 11-03-2023 08:00-0500 Body height 165.1 cm Coy Eren II Other [facility] Other 11-03-2023 08:00-0500 Body mass index (BMI) [Ratio] 30.45 kg/m2 Coy [place] II Other [facility] Other 11-03-2023 08:00-0500 Body weight 83.01 kg Coy South[place] II Other [facility] Other 10-04-2023 13:30-0500 Body height 165.1 cm DO Chucho Ball Work Phone: [facility] 10-04-2023 13:30-0500 Body weight 83 kg DO Chucho Ball Work Phone: [facility] 10-04-2023 13:30-0500 Diastolic blood pressure 74 mm[Hg] DO Chucho Ball Work Phone: [facility] 10-04-2023 13:30-0500 Systolic blood pressure 130 mm[Hg] DO Chucho Ball Work Phone: [facility] 02-24-2023 11:50-0400 Diastolic blood pressure 81 mm[Hg] DO Chucho Ball Work Phone: [facility] 02-24-2023 11:50-0400 Heart rate 62 /min DO Chucho Ball Work Phone: [facility] 02-24-2023 11:50-0400 Respiratory rate 16 /min DO Chucho Ball Work Phone: [facility] 02-24-2023 11:50-0400 SaO2% (BldA) [Mass fraction] 95 % DO Chucho Ball Work Phone: [facility] 02-24-2023 11:50-0400 Systolic blood pressure 154 mm[Hg] DO Chucho Ball Work Phone: [facility] 02-24-2023 11:35-0400 Inhaled oxygen flow rate 1 L/min DO Chucho Ball Work Phone: [facility] 02-24-2023 10:54-0400 Body temperature 97 [degF] DO Chucho Ball Work Phone: [facility] 02-24-2023 08:22-0400 Body height 160.02 cm DO Chucho Ball Work Phone: [facility] 02-24-2023 08:22-0400 Body mass index (BMI) [Ratio] 32.9 kg/m2 DO Chucho Ball Work Phone: [facility] 02-24-2023 08:22-0400 Body weight 84.4 kg DO Chucho Ball Work Phone: [facility] 02-09-2023 10:00-0400 Body height 165.1 cm Barry Olexa Other [facility] Other 01-25-2023 14:45-0400 Body height 165.1 cm Barry Olexa Other [facility] Other 01-25-2023 14:45-0400 Body mass index (BMI) [Ratio] 30.78 kg/m2 Barry Olexa Other [facility] Other 01-25-2023 14:45-0400 Body weight 83.92 kg Barry Olexa Other [facility] Other 12-14-2022 11:00-0400 Body height 165.1 cm Chucho Ball Other [facility] Other 12-14-2022 11:00-0400 Body mass index (BMI) [Ratio] 30.82 kg/m2 Chucho Ball Other [facility] Other 12-14-2022 11:00-0400 Body weight 84.01 kg Chucho Ball Other [facility] Other 12-14-2022 11:00-0400 Diastolic blood pressure 84 mm[Hg] Chucho Ball Other [facility] Other 12-14-2022 11:00-0400 Respiratory rate 20 /min Chucho Ball Other [facility] Other 12-14-2022 11:00-0400 Systolic blood pressure 122 mm[Hg] Chucho Ball Other [facility] Other 10-29-2022 11:30-0500 Body height 165.1 cm Barry Negritaer Other [facility] Other 10-29-2022 11:30-0500 Body mass index (BMI) [Ratio] 30.78 kg/m2 Barry Felter Other [facility] Other 10-29-2022 11:30-0500 Body weight 83.92 kg Barry Felter Other [facility] Other 10-23-2022 10:40-0500 Body height 165.1 cm Benigno Kennedy Other [facility] Other 10-23-2022 10:40-0500 Body mass index (BMI) [Ratio] 30.78 kg/m2 Benigno Kennedy Other [facility] Other 10-23-2022 10:40-0500 Body weight 83.92 kg Benigno Kennedy Other [facility] Other 08-27-2022 07:00-0500 Body height 162.56 cm DO Chucho Ball Work Phone: [facility] 08-27-2022 07:00-0500 Body weight 81.64 kg DO Chucho Ball Work Phone: [facility] 08-18-2022 11:20-0500 Body height 165.1 cm Benigno Kennedy Other [facility] Other 03-11-2022 12:00-0400 Body height 165.1 cm Barry Felter Other [facility] Other 03-11-2022 12:00-0400 Body mass index (BMI) [Ratio] 30.28 kg/m2 Barry Felter Other [facility] Other 03-11-2022 12:00-0400 Body weight 82.56 kg Barry Felter Other [facility] Other 02-17-2022 12:20-0400 Body height 165.1 cm Benigno Kennedy Other [facility] Other 02-17-2022 12:20-0400 Body mass index (BMI) [Ratio] 30.28 kg/m2 Benigno Kennedy Other [facility] Other 02-17-2022 12:20-0400 Body weight 82.56 kg Benigno Kennedy Other [facility] Other 01-05-2022 10:45-0400 Body height 165.1 cm Barry Felter Other [facility] Other 01-05-2022 10:45-0400 Body mass index (BMI) [Ratio] 31.28 kg/m2 Barry Felter Other [facility] Other 01-05-2022 10:45-0400 Body weight 85.28 kg Barry Felter Other [facility] Other 11-07-2021 09:20-0500 Body height 165.1 cm Benigno Kennedy Other [facility] Other 11-07-2021 09:20-0500 Body mass index (BMI) [Ratio] 31.45 kg/m2 Benigno Kennedy Other [facility] Other 11-07-2021 09:20-0500 Body weight 85.73 kg Benigno Kennedy Other [facility] Other 11-03-2021 11:15-0500 Body height 165.1 cm Barry Felter Other [facility] Other 11-03-2021 11:15-0500 Body mass index (BMI) [Ratio] 31.45 kg/m2 Barry Felter Other [facility] Other 11-03-2021 11:15-0500 Body weight 85.73 kg Barry Felter Other [facility] Other 09-18-2021 16:20-0500 Body height 165.1 cm Benigno Kennedy Other [facility] Other 09-18-2021 16:20-0500 Body mass index (BMI) [Ratio] 31.61 kg/m2 Benigno Kennedy Other [facility] Other 09-18-2021 16:20-0500 Body weight 86.18 kg Benigno Kennedy Other [facility] Other 09-18-2021 16:20-0500 Diastolic blood pressure 75 mm[Hg] Benigno Kennedy Other [facility] Other 09-18-2021 16:20-0500 Systolic blood pressure 129 mm[Hg] Benigno Kennedy Other [facility] Other 09-11-2021 11:45-0500 Body height 165.1 cm Barry Felter Other [facility] Other 09-11-2021 11:45-0500 Body mass index (BMI) [Ratio] 31.61 kg/m2 Barry Felter Other [facility] Other 09-11-2021 11:45-0500 Body weight 86.18 kg Barry Felter Other [facility] Other 09-02-2021 15:00-0500 Body height 165.1 cm Barry Felter Other [facility] Other 09-02-2021 15:00-0500 Body mass index (BMI) [Ratio] 31.61 kg/m2 Barry Reesdave Other [facility] Other 09-02-2021 15:00-0500 Body weight 86.18 kg Barry Reesdave Other [facility] Other 08-14-2021 17:30-0500 Body height 165.1 cm Benigno Kennedy Other [facility] Other 08-14-2021 17:30-0500 Body mass index (BMI) [Ratio] 29.95 kg/m2 Benigno Kennedy Other [facility] Other 08-14-2021 17:30-0500 Body weight 81.65 kg Benigno Kennedy Other [facility] Other Encounters Encounter Date Encounter Type Care Provider Facility Start: 06-26-2024 End: 06-26-2024 ambulatory DO Chucho Ball Work Phone: [facility] Work Phone: Start: 06-26-2024 End: 06-26-2024 Patient encounter procedure DO Chucho Ball Work Phone: [facility] Work Phone: Start: 06-24-2024 Patient encounter procedure DO Chucho Ball Work Phone: [facility] Start: 06-21-2024 End: 06-21-2024 ambulatory DO Chucho Ball Work Phone: [facility] Work Phone: Start: 06-21-2024 End: 06-21-2024 Patient encounter procedure DO Chucho Ball Work Phone: [facility] Work Phone: Start: 06-05-2024 End: 06-05-2024 ambulatory DO Chucho Ball Work Phone: [facility] Work Phone: Start: 06-05-2024 End: 06-05-2024 Patient encounter procedure DO Chucho Manjit Work Phone: [facility] Work Phone: Start: 05-15-2024 End: 05-15-2024 ambulatory DO Chucho Saravia Work Phone: [facility] Work Phone: Start: 05-15-2024 End: 05-15-2024 Patient encounter procedure DO Chucho Saravia Work Phone: [facility] Work Phone: Start: 05-08-2024 End: 05-08-2024 ambulatory DO Chucho Saravia Work Phone: [facility] Work Phone: Start: 05-08-2024 End: 05-08-2024 Patient encounter procedure DO Chucho Saravia Work Phone: [facility] Work Phone: Start: 04-12-2024 End: 04-12-2024 ambulatory DO Chucho Saravia Work Phone: [facility] Work Phone: Start: 04-12-2024 End: 04-12-2024 Patient encounter procedure [facility] Work Phone: Start: 04-10-2024 End: 04-10-2024 ambulatory [facility] Work Phone: Start: 04-10-2024 End: 04-10-2024 Patient encounter procedure [facility] Work Phone: Start: 03-31-2024 End: 03-31-2024 ambulatory [facility] Work Phone: Start: 03-31-2024 End: 03-31-2024 Patient encounter procedure [facility] Work Phone: Start: 03-16-2024 End: 03-16-2024 ambulatory AMISHA MUNOZ Not Available Start: 03-13-2024 End: 03-13-2024 ambulatory [facility] Work Phone: Start: 03-13-2024 End: 03-13-2024 Patient encounter procedure [facility] Work Phone: Start: 02-28-2024 End: 02-28-2024 ambulatory [facility] Work Phone: Start: 02-28-2024 End: 02-28-2024 Patient encounter procedure [facility] Work Phone: Start: 02-10-2024 End: 02-10-2024 Patient encounter procedure [facility] Work Phone: Start: 01-31-2024 Non-patient / Non-visit [facility] Work Phone: Start: 01-14-2024 End: 01-14-2024 ambulatory DO Chucho Ball Work Phone: [facility] Work Phone: Start: 01-14-2024 End: 01-14-2024 Patient encounter procedure DO Chucho Ball Work Phone: [facility] Work Phone: Start: 01-12-2024 End: 01-12-2024 ambulatory DO Chucho Ball Work Phone: [facility] Work Phone: Start: 01-12-2024 End: 01-12-2024 Patient encounter procedure DO Chucho Ball Work Phone: [facility] Work Phone: Start: 01-10-2024 End: 01-10-2024 ambulatory ESTHER PALMER Not Available Start: 01-05-2024 End: 01-05-2024 ambulatory DO Chucho Ball Work Phone: [facility] Work Phone: Start: 01-05-2024 End: 01-05-2024 Patient encounter procedure DO Chucho Ball Work Phone: [facility] Work Phone: Start: 01-05-2024 Non-patient / Non-visit DO Abhishek valderrama Ball Work Phone: [facility] Work Phone: Start: 01-04-2024 End: 01-04-2024 ambulatory AMISHA MUNOZ Not Available Start: 12-21-2023 End: 12-21-2023 ambulatory DO Chucho Ball Work Phone: [facility] Work Phone: Start: 12-21-2023 End: 12-21-2023 Patient encounter procedure DO Chucho Ball Work Phone: [facility] Work Phone: Start: 12-13-2023 End: 12-13-2023 ambulatory DO Chucho Ball Work Phone: [facility] Work Phone: Start: 12-13-2023 End: 12-13-2023 Patient encounter procedure DO Chucho Ball Work Phone: [facility] Work Phone: Start: 12-09-2023 End: 12-09-2023 ambulatory DO Chucho Ball Work Phone: [facility] Work Phone: Start: 12-09-2023 End: 12-09-2023 Patient encounter procedure DO Chucho Ball Work Phone: [facility] Work Phone: Start: 12-01-2023 End: 12-01-2023 Patient encounter procedure DO Chucho Ball Work Phone: [facility] Work Phone: Start: 12-01-2023 Non-patient / Non-visit DO Abhishek Saravia Work Phone: [facility] Work Phone: Start: 11-25-2023 End: 11-25-2023 Patient encounter procedure DO Chucho Saravia Work Phone: [facility] Work Phone: Start: 11-11-2023 Non-patient / Non-visit DO Abhishek Saravia Work Phone: [facility] Work Phone: Start: 11-09-2023 End: 11-09-2023 ambulatory Chucho Saravia Other [facility] Other Start: 11-09-2023 Telephone encounter Chucho Manjit SALGADO [facility] Start: 11-03-2023 Office outpatient vi sit 25 minutes Coy Cassidy II [facility] Start: 11-03-2023 End: 11-03-2023 Patient encounter procedure DO Chucho Saravia Work Phone: [facility] Start: 11-03-2023 End: 11-03-2023 ambulatory DO Chucho Saravia Work Phone: [facility] Work Phone: Start: 10-11-2023 End: 10-11-2023 ambulatory Chucho Saravia Other [facility] Other Start: 10-11-2023 Telephone encounter Chucho Saravia [facility] Start: 10-04-2023 End: 10-04-2023 Patient encounter procedure DO Chucho Saravia Work Phone: [facility] Work Phone: Start: 09-24-2023 End: 09-24-2023 ambulatory AMISHA MUNOZ Not Available Start: 07-13-2023 Office outpatient vi sit 15 minutes Barry Patel [facility] Start: 07-13-2023 End: 07-13-2023 Patient encounter procedure DO Chucho Ball Work Phone: [facility] Start: 07-13-2023 End: 07-13-2023 ambulatory DO Chucho Ball Work Phone: [facility] Work Phone: Start: 07-09-2023 End: 07-09-2023 ambulatory Chucho Ball Other [facility] Other Start: 07-09-2023 Telephone encounter Chucho Bishop [facility] Start: 07-08-2023 End: 07-08-2023 Patient encounter procedure DO Chucho Ball Work Phone: [facility] Work Phone: Start: 07-08-2023 End: 07-08-2023 ambulatory DO Chucho Ball Work Phone: [facility] Work Phone: Start: 07-06-2023 End: 07-06-2023 ambulatory Barry Valenzuela Other [facility] Other Start: 07-06-2023 Office outpatient vi sit 25 minutes Barry Valenzuela [facility] [place] Start: 07-06-2023 Telephone encounter Barry SALGADO [facility] [place] Start: 06-25-2023 End: 06-25-2023 ambulatory Barry Patel Facility:[facility] Start: 06-25-2023 Registered Recurring DO Benjam in Ball Work Phone: [facility] [place] Start: 06-08-2023 Office outpatient vi sit 15 minutes Barry Patel [facility] Start: 06-08-2023 End: 06-08-2023 Patient encounter procedure DO Chucho Ball Work Phone: [facility] Start: 06-08-2023 End: 06-08-2023 ambulatory DO Chucho Ball Work Phone: [facility] Work Phone: Start: 06-07-2023 Registered Recurring DO Benjam in Ball Work Phone: [facility] [place] Start: 05-18-2023 End: 05-18-2023 ambulatory Chucho Ball Other [facility] Other Start: 05-18-2023 Telephone encounter Chucho Ball [facility] Start: 05-14-2023 End: 05-14-2023 ambulatory Chucho Ball Other [facility] Other Start: 05-14-2023 Telephone encounter Chucho Saravia FP [facility] Start: 04-12-2023 Postop follow up vis it related to original px Barry Jorge [facility] Start: 04-12-2023 End: 04-12-2023 ambulatory DO Chucho Ball Work Phone: [facility] Work Phone: Start: 04-12-2023 End: 04-12-2023 Patient encounter procedure DO Chucho Ball Work Phone: [facility] Start: 03-08-2023 End: 03-08-2023 Patient encounter procedure DO Chucho Ball Work Phone: [facility] Start: 03-02-2023 End: 03-02-2023 ambulatory Chucho Ball Other [facility] Other Start: 03-02-2023 Telephone encounter Chucho Ball [facility] Start: 02-26-2023 End: 02-26-2023 ambulatory Chucho Ball Other [facility] Other Start: 02-26-2023 Office outpatient vi sit 15 minutes Chucho Ball [facility] Start: 02-26-2023 Telephone encounter Chucho Saravia FP G [facility] Start: 02-25-2023 End: 02-25-2023 ambulatory Barry Patel Other [facility] Other Start: 02-25-2023 Telephone encounter Barry Patel [facility] Start: 02-24-2023 End: 02-24-2023 Admission to same day surgery center DO Chucho Saravia Work Phone: [facility] [place] Start: 02-24-2023 End: 02-24-2023 ambulatory DO Chucho Saravia Work Phone: [facility] Work Phone: Start: 02-23-2023 End: 02-23-2023 ambulatory Barry Vegaxa Other [facility] Other Start: 02-23-2023 Telephone encounter Barry Jorge [facility] Start: 02-12-2023 End: 02-12-2023 Patient encounter procedure DO Chucho Saravia Work Phone: [facility]-Pre-Surgical Testing Work Phone: Start: 02-09-2023 End: 02-09-2023 ambulatory Barry Patel Other [facility] Other Start: 02-09-2023 Encounter for other preprocedural examination Barry Patel [facility] Start: 02-09-2023 Office outpatient vi sit 25 minutes Barry Vegaxa [facility] Start: 02-05-2023 End: 02-05-2023 ambulatory DO Chucho Saravia Work Phone: [facility] Work Phone: Start: 02-05-2023 End: 02-05-2023 Patient encounter procedure DO Chucho Saravia Work Phone: [facility] [address] Work Phone: Start: 02-01-2023 End: 02-01-2023 ambulatory Barry Vegacandace Other [facility] Other Start: 02-01-2023 Telephone encounter Barry Patel [facility] Start: 01-25-2023 Office outpatient vi sit 25 minutes Barry Patel [facility] Start: 01-25-2023 End: 01-25-2023 ambulatory DO Chucho Saravia Work Phone: [facility] Work Phone: Start: 01-25-2023 End: 01-25-2023 Patient encounter procedure DO Chucho Ball Work Phone: [facility] Start: 01-18-2023 End: 01-18-2023 ambulatory Chucho Saravia Other [facility] Other Start: 01-18-2023 Telephone encounter Chucho SALGADO [facility] Start: 12-24-2022 End: 12-24-2022 ambulatory Coy Cassidy II Other [facility] Other Start: 12-24-2022 Telephone encounter Coy WOODS [facility] Start: 12-14-2022 End: 12-14-2022 ambulatory Chucho Saravia Other [facility] Other Start: 12-14-2022 Office outpatient vi sit 15 minutes Chucho Saravia [facility] Start: 12-07-2022 End: 12-07-[address] CHUCHO SARAVIA Facility:[facility] Start: 12-03-2022 End: 12-03-2022 ambulatory Coy Cassidy II Other [facility] Other Start: 12-03-2022 Telephone encounter Coy Cassidy II [facility] Start: 11-30-2022 End: 11-30-2022 ambulatory Chucho Saravia Other [facility] Other Start: 11-30-2022 Telephone encounter Chucho Bishop [facility] Start: 11-26-2022 End: 11-26-2022 Patient encounter procedure DO Chucho Saravia Work Phone: [facility] Start: 11-20-2022 End: 11-20-2022 ambulatory Barry Valenzuela Other [facility] Other Start: 11-20-2022 Telephone encounter Barry Bishop [facility] Start: 11-19-2022 End: 11-19-2022 ambulatory Barry Valenzuela Other [facility] Other Start: 11-19-2022 Office outpatient vi sit 15 minutes Barry Valenzuela [facility] [place] Start: 11-18-2022 End: 11-18-2022 ambulatory Chucho Saravia Other [facility] Other Start: 11-18-2022 Telephone encounter Chucho Bishop [facility] Start: 11-17-2022 End: 11-18-[address] NONE LISTED REQUEST Facility: Start: 11-17-2022 Nursing evaluation o f patient and report Chucho Saravia [facility] Start: 11-09-2022 (Procedure) Liane Valenzuela [facility] Start: 11-09-2022 End: 11-09-2022 ambulatory Barry Valenzuela Other [facility] Other Start: 10-29-2022 Office outpatient vi sit 25 minutes Barry Valenzuela [facility] [place] Start: 10-29-2022 Telephone encounter Barry Bishop [facility] Start: 10-29-2022 End: 10-29-2022 ambulatory DO Chucho Saravia Work Phone: [facility] Work Phone: Start: 10-29-2022 End: 10-29-2022 Patient encounter procedure DO Chucho Saravia Work Phone: [facility] Start: 10-27-2022 End: 10-27-2022 ambulatory Radha Kennedy Other [facility] Other Start: 10-27-2022 Telephone encounter Radha Marcia [facility] Start: 10-23-2022 End: 10-23-2022 ambulatory Benigno Kennedy Other [facility] Other Start: 10-23-2022 Office outpatient vi sit 15 minutes Benigno Kennedy [facility] Start: 10-22-2022 End: 10-22-2022 ambulatory Chucho Saravia Other [facility] Other Start: 10-22-2022 Telephone encounter Chucho [facility] Start: 08-27-2022 End: 08-27-2022 ambulatory DO Chucho Saravia Work Phone: [facility] Work Phone: Start: 08-27-2022 End: 08-27-2022 Patient encounter procedure DO Chucho Saravia Work Phone: [facility] [place] Start: 08-18-2022 End: 08-18-2022 ambulatory Benigno Kennedy Other [facility] Other Start: 08-18-2022 Office outpatient vi sit 15 minutes Benigno Kennedy [facility] Start: 08-12-2022 End: 08-12-2022 ambulatory DO Chucho Saravia Work Phone: [facility] Work Phone: Start: 08-12-2022 End: 08-12-2022 Patient encounter procedure DO Chucho Saravia Work Phone: [facility] [place] Start: 08-04-2022 End: 08-04-2022 ambulatory Barry Valenzuela Other [facility] Other Start: 08-04-2022 Office outpatient vi sit 25 minutes Barry Valenzuela [facility] [place] Start: 07-07-2022 End: 07-07-2022 ambulatory DO Chucho Saravia Work Phone: [facility] Work Phone: Start: 07-07-2022 End: 07-07-2022 Patient encounter procedure DO Chucho Saravia Work Phone: [facility] Start: 06-22-2022 Adult health examination Jose Angel Saravia Other [facility] Other Start: 06-22-2022 End: 06-23-[address] CHUCHO SARAVIA Facility:[facility] Start: 05-26-2022 End: 05-26-[address] CHUCHO SARAVIA Facility:[facility] Start: 04-28-2022 End: 04-29-[address] CHUCHO SARAVIA Facility:[facility] Start: 04-16-2022 End: 04-17-[address] CHUCHO SARAVIA Facility:[facility] Start: 04-15-2022 End: 04-15-[address] CHUCHO SARAVIA Facility:[facility] Start: 03-11-2022 End: 03-11-2022 ambulatory Barry Valenzuela Other [facility] Other Start: 03-11-2022 Office outpatient vi sit 25 minutes Barry Valenzuela [facility] [place] Start: 03-04-2022 (Procedure) Short Barry Valenzuela [facility] Start: 03-04-2022 End: 03-04-2022 ambulatory Barry Valenzuela Other [facility] Other Start: 02-17-2022 End: 02-17-2022 ambulatory Benigno Kennedy Other [facility] Other Start: 02-17-2022 Office outpatient vi sit 15 minutes Benigno Kennedy [facility] Start: 01-19-2022 End: 01-20-[address] CHUCHO SARAVIA Facility:[facility] Start: 01-05-2022 End: 01-05-2022 ambulatory Barry Valenzuela Other [facility] Other Start: 01-05-2022 Office outpatient vi sit 25 minutes Barry Negritadave [facility] [place] Start: 12-03-2021 End: 12-03-2021 ambulatory Barry Reeser Other [facility] Other Start: 12-03-2021 Office outpatient vi sit 25 minutes Barry Reeser [facility] [place] Start: 11-28-2021 End: 11-28-2021 ambulatory Barry Negritadave Other [facility] Other Start: 11-28-2021 Telephone encounter Barry Bishop [facility] Start: 11-07-2021 End: 11-07-2021 ambulatory Benigno Kennedy Other [facility] Other Start: 11-07-2021 Office outpatient vi sit 15 minutes Benigno Kennedy [facility] Start: 11-03-2021 End: 11-03-2021 ambulatory Barry Negritadave Other [facility] Other Start: 11-03-2021 Office outpatient vi sit 25 minutes Barry Negritadave [facility] [place] Start: 10-14-2021 (Procedure) Short Barry Valenzuela [facility] Start: 10-14-2021 End: 10-14-2021 ambulatory Barry Negritadave Other [facility] Other Start: 10-06-2021 End: 10-06-2021 ambulatory Barry Negritadave Other [facility] Other Start: 10-06-2021 Office outpatient vi sit 25 minutes Barry Negritadave [facility] [place] Start: 09-18-2021 End: 09-18-2021 ambulatory Benigno Kennedy Other [facility] Other Start: 09-18-2021 Office outpatient vi sit 15 minutes Benigno Kennedy [facility] Start: 09-11-2021 End: 09-11-2021 ambulatory Barry Negritadave Other [facility] Other Start: 09-11-2021 Office outpatient vi sit 25 minutes Barry Valenzuela [facility] [place] Start: 09-02-2021 End: 09-02-2021 ambulatory Barry Valenzuela Other [facility] Other Start: 09-02-2021 Office outpatient vi sit 25 minutes Barry Valenzuela [facility] [place] Start: 08-26-2021 (Procedure) Short Barry Reesdave [facility] Start: 08-26-2021 End: 08-26-2021 ambulatory Barry Valenzuela Other [facility] Other Start: 08-25-2021 End: 08-25-2021 ambulatory Benigno Kennedy Other [facility] Other Start: 08-25-2021 Telephone encounter Benigno Kennedy [facility] Start: 08-15-2021 End: 08-15-2021 ambulatory Barry Reesdave Other [facility] Other Start: 08-15-2021 Telephone encounter Barry Negritadave [facility] [place] Start: 08-14-2021 End: 08-14-2021 ambulatory Benigno Kennedy Other [facility] Other Start: 08-14-2021 Office outpatient vi sit 15 minutes Benigno Kennedy [facility] Start: 09-05-2019 Pre-procedure evalua tion check Chucho Saravia Other [facility] Other Start: 06-06-2018 Patient encounter CIRA BENDER Fac [id number] Start: 06-06-2018 Patient encounter Facil [id number] Start: 04-11-2018 End: 04-13-2018 Patient encounter RENATA LEIF [facility] Start: 04-11-2018 End: 04-11-2018 Patient encounter RENATA LEIF [facility] Start: 04-11-2018 End: 04-13-2018 Patient encounter RENATA LEIF [facility] Procedures Date Procedure Procedure Detail Performing Clinician [...] Activity Detail Author Start: 04-10-2024 Patient referral [facility] Work Phone: Start: 02-24-2023 End: 02-24-2023 [facility] Start: 02-24-2023 Referral to occupati onal therapist [facility] Start: 02-24-2023 [facility] Start: 01-25-2023 Plain X-ray of left shoulder XR shoulder LT min 2V* [facility] Comprehensive metabo lic 2000 panel - Serum or Plasma [facility] DXA Skeletal system. axial Views for bone density [facility] MG Breast - bilatera l Screening [facility] Patient referral [facility] Work Phone: US Heart Transthoracic [facility] XR Chest 2 Views [facility] Immunizations Immunization Date Immunization Notes Care Provider Fa josué 06-15-2024 influenza, high dose seasonal, preservative-free DO Chucho Saravia Work Phone: [facility] 06-15-2024 Pneumococcal Conjuga te Vaccine, 20 valent DO Chucho Saravia Work Phone: [facility] 06-15-2024 RSV, preF3, adj, pf DO Jose Angel Saravia Work Phone: [facility] 06-22-2023 Fluzone QIV High-Dos e 65YR+ DO Chucho Saravia Work Phone: [facility] 06-22-2023 influenza virus vaccine, unspecified formulation DO Chucho Saravia Work Phone: [facility] 06-22-2023 influenza, high dose seasonal, preservative-free Barry Negritadave Other [facility] Other 06-16-2022 Fluzone QIV High-Dos e 65YR+ DO Chucho Saravia Work Phone: [facility] 06-16-2022 influenza virus vaccine, split virus (incl. purified surface antigen) Chucho Saravia Other [facility] Other 06-16-2022 influenza virus vaccine, unspecified formulation DO Chucho Saravia Work Phone: [facility] 04-15-2022 diphtheria, tetanus toxoids and pertussis vaccine DO Chucho Saravia Work Phone: [facility] 08-06-2021 COVID-19 mRNA-1273 (Moderna) DO Chucho Saravia Work Phone: [facility] 07-13-2021 Fluzone QIV High-Dos e 65YR+ DO Chucho Saravia Work Phone: [facility] 12-16-2020 COVID-19 mRNA-1273 (Moderna) DO Chucho Saravia Work Phone: [facility] 11-18-2020 COVID-19 mRNA-1273 (Moderna) DO Chucho Saravia Work Phone: [facility] 06-27-2020 Influenza vaccine, quadrivalent, adjuvanted DO Chucho Saravia Work Phone: [facility] 06-20-2019 influenza, high dose seasonal, preservative-free DO Chucho [employer] Work Phone: [facility] 09-10-2018 influenza, high dose seasonal, preservative-free DO Chucho [employer] Work Phone: [facility] 06-02-2017 influenza virus vaccine, split virus (incl. purified surface antigen) Chucho Saravia Other [facility] Other 06-02-2017 influenza virus vaccine, unspecified formulation DO Chucho [employer] Work Phone: [facility] 05-28-2017 influenza, high dose seasonal, preservative-free DO Chucho [employer] Work Phone: [facility] 02-10-2017 pneumococcal polysaccharide vaccine, 23 valent Chucho [employer] Other [facility] 07-18-2015 influenza, injectabl e, quadrivalent, contains preservative DO Chucho [employer] Work Phone: [facility] 05-01-2015 pneumococcal conjuga te vaccine, 13 valent Chucho [employer] Other [facility] 05-01-2015 pneumococcal Conjuga te, unspecified formulation; Translations: [Need for prophylactic vaccination against Streptococcus pneumoniae (pneumococcus)] Chucho Saravia Other [facility] Other 08-01-2014 influenza virus vaccine, split virus (incl. purified surface antigen) Chucho [employer] Other [facility] Other 08-01-2014 influenza virus vaccine, unspecified formulation DO [employer] Work Phone: [facility] 07-05-2013 tetanus and diphther ia toxoids, adsorbed, preservative free, for adult use (5 Lf of tetanus toxoid and 2 Lf of diphtheria toxoid) Chucho [employer] Other [facility] 07-05-2012 tetanus and diphther ia toxoids, adsorbed, preservative free, for adult use (5 Lf of tetanus toxoid and 2 Lf of diphtheria toxoid) Chucho Saravia Other [facility] 07-01-2011 tetanus and diphther ia toxoids, adsorbed, preservative free, for adult use (5 Lf of tetanus toxoid and 2 Lf of diphtheria toxoid) Chucho Saravia Other [facility] 08-06-2004 pneumococcal polysaccharide vaccine, 23 valent Chucho Saravia Other [facility] Payers Date Payer Category Payer Medicare [id number] 1959 Self-pay [id number] 1957 Unknown [id number] 1945 Unknown [id number] 2.16.840.1.121798.3.579.2.593 1945 Unknown [id number] 2.16.840.1.955694.3.579.2.593 1947 Unknown [id number] 2.16.840.1.212137.3.579.2.593 1947 Unknown [id number] 2.16.840.1.996982.3.579.2.593 1947 Unknown [id number] 2.16.840.1.051888.3.579.2.593 1947 Unknown [id number] 2.16.840.1.319184.3.579.2.593 1947 Unknown [id number] 2.16.840.1.938452.3.579.2.593 1947 Unknown [id number] 2.16.840.1.193641.3.579.2.1259 1947 Unknown [id number] 2.16.840.1.282556.3.579.2.1259 1947 Unknown [id number] 2.16.840.1.777146.3.579.2.1259 1945 Unknown [id number] 2.16.840.1.160531.3.579.2.1259 Medicare [id number] Unknown [employer] C o [id number] Unknown [id number] 2.16.840.1.137755.3.579.2.593 Unknown [id number] 2.16.840.1.683194.3.579.2.531 Unknown [id number] 2.16.840.1.325042.3.579.2.531 Unknown [id number] 2.16.840.1.650320.3.579.2.531 Unknown [id number] 2.16.840.1.017853.3.579.2.531 Unknown [id number] 2.16.840.1.916192.3.579.2.531 Unknown [id number] 2.16.840.1.686795.3.579.2.531 Social History Date Type Detail Facility Unknown if ever smoked [facility] Other Sex Assigned At Sex Assigned At Bir th [facility] Other Start: 03-05-2021 End: 04-10-2024 Tobacco smoking status CAIS Ex-smoker (finding) [facility] Start: 1945 Sex Assigned At Female F [facility] Medical Equipment Procedure Code Equipment Code Equipment Origin al Text Equipment Identifier Dates Fusion, spine, lumbar, XLIF CANCELLOUS 15CC CRUSHED FDA Start: 03-05-2021 Fusion, spine, lumbar, XLIF Orthopaedic bone screw, non-bioabsorbable, non-sterile [id number] FDA Start: 03-05-2021 Fusion, spine, lumbar, XLIF Orthopaedic instrument surgical connector [id number] FDA Start: 03-05-2021 Fusion, spine, lumbar, XLIF Bone-screw internal spinal fixation system, non-sterile [id number] FDA Start: 03-05-2021 Fusion, spine, lumbar, XLIF Spinal fusion graft kit ()[id number] FDA Start: 03-05-2021 Fusion, spine, lumbar, XLIF Polymeric spinal fusion cage, sterile ()[id number] FDA Start: 03-05-2021 Fusion, spine, lumbar, XLIF Bone-screw internal spinal fixation system, non-sterile [id number] FDA Start: 03-05-2021 Fusion, spine, lumbar, XLIF Orthopaedic bone screw, non-bioabsorbable, non-sterile [id number] FDA Start: 03-05-2021 Fusion, spine, lumbar, XLIF [...] 03-05-2021 Arthroscopy, shoulder Tendon/ligament bone anchor, non-bioabsorbable ()[id number] [id number] FDA Start: 08-01-2019 Arthroplasty, shoulder, total Total reverse shoulder prosthesis ()[id number]( [id number])[id number] 69 FDA Start: 02-24-2023 Arthroplasty, shoulder, total Total reverse shoulder prosthesis ()[id number] [id number] FDA Start: 02-24-2023 Arthroplasty, shoulder, total Total reverse shoulder prosthesis ()[id number]( [id number])[id number] 30 FDA Start: 02-24-2023 Arthroplasty, shoulder, total Total reverse shoulder prosthesis ()[id number]( 17)[id number])22.024 00 FDA Start: 02-24-2023 Arthroplasty, shoulder, total Total reverse shoulder prosthesis ()[id number]( 17)[id number](10)22.017 66 FDA Start: 02-24-2023 Arthroplasty, shoulder, total Total reverse shoulder prosthesis ()[id number]( 17)[id number](10)22.024 85 FDA Start: 02-24-2023 Arthroplasty, shoulder, total Total reverse shoulder prosthesis ()[id number]( 17)[id number] 59 FDA Start: 02-24-2023 Arthroplasty, shoulder, total Total reverse shoulder prosthesis ()[id number]( [id number] FDA Start: 02-24-2023 Arthroplasty, shoulder, total Total reverse shoulder prosthesis ()[id number]( 17)[id number] 64 FDA Start: 02-24-2023 Arthroplasty, shoulder, total Total reverse shoulder prosthesis ()[id number]( 17)[id number] 66 FDA Start: 02-24-2023 Goals Date Patient Goal Desired Activity /State Clinical Notes 08-14-2021 to 11-09-2023 Note Date & Type Note Facility 11-09-2023 Evaluation note Encounter Date Diagnosis Assessment Notes Oct, LALITA (generalized anxiety disorder) (ICD-10 - F41.1) [facility] Other 02-07-2024 Evaluation note* Encounter Date Diagnosis [...] would like to see the someone in [place] or [place] for another set of eyes to determine if there is anything from a surgical standpoint I can help with her significant pain I am happy to make that referral as well. I again stressed that I do not feel that there is anything from a surgical standpoint that I will be able to offer her. [facility] Other 10-17-2023 Evaluation note* Encounter Date Diagnosis [...] Pain in left hand (ICD-10 - M79.642) [facility] Other 10-10-2023 Evaluation note* Encounter Date Diagnosis Assessment Notes Treatment Notes Treatment Clinical Notes Jun, Lumbar spondylosis (ICD-10 - M47.816) [facility] Other 10-10-2023 Evaluation note* Encounter Date Diagnosis [...] note writ ten by Henry Salter MA, Food Service. Edited and approved by Dr. Barry Valenzuela MD. [facility] Other 09-12-2023 Evaluation note* Encounter Date Diagnosis [...] slowly progress increased activity as pain allows. [facility] Other 08-18-2023 Evaluation note* Encounter Date Diagnosis Assessment Notes Treatment Notes Treatment Clinical Notes Apr, Age-related osteoporosis without current pathological fracture (ICD-10 - M81.0) [facility] Other 06-06-2023 Evaluation note* Encounter Date Diagnosis Assessment Notes Treatment Notes Treatment Clinical Notes Feb, Acute bronchitis due to other specified organisms (ICD-10 - J20.8) [facility] Other 06-02-2023 Evaluation note* Encounter Date Diagnosis [...] Increase use of MICHAELA and add mucolytic [facility] Other 05-30-2023 Evaluation note* Encounter Date Diagnosis Assessment Notes Treatment Notes Treatment Clinical Notes January, 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) [facility] Other 05-16-2023 Evaluation note* Encounter Date Diagnosis [...] loosening, loss of motion, hematoma, wound problems, intermediate manager pain and stiffness are well known problems [...] M87.022) January, Pre-op exam (ICD-10 - Z01.818) [facility] Other 05-08-2023 Evaluation note* Encounter Date Diagnosis Assessment Notes Treatment Notes Treatment Clinical Notes January, Internal derangement of left shoulder (ICD-10 - M24.812) [facility] Other 05-01-2023 Evaluation note* Encounter Date Diagnosis [...] derangement of left shoulder (ICD-10 - M24.812) [facility] Other 03-20-2023 Evaluation note* Encounter Date Diagnosis [...] Nov, Other chronic pain (ICD-10 - G89.29) [facility] Other 02-24-2023 Evaluation note* Encounter Date Diagnosis Assessment Notes Treatment Notes Treatment Clinical Notes Oct, Mucopurulent chronic bronchitis (ICD-10 - J41.1) [facility] Other 02-23-2023 Evaluation note* Encounter Date Diagnosis [...] note writ ten by Shahla Lopez LPN, Food Service. Edited and approved by Dr. Barry Valenzuela MD. [facility] Other 02-22-2023 Evaluation note* Encounter Date Diagnosis Assessment Notes Treatment Notes Treatment Clinical Notes Oct, Mucopurulent chronic bronchitis (ICD-10 - J41.1) [facility] Other 02-21-2023 Evaluation note* Encounter Date Diagnosis Assessment Notes Treatment Notes Treatment Clinical Notes Oct, Pernicious anemia (ICD-10 - D51.0) [facility] Other 02-02-2023 Evaluation note* Encounter Date Diagnosis [...] note writ ten by Shahla Lopez LPN, Food Service. Edited and approved by Dr. Barry Valenzuela MD. [facility] Other 01-27-2023 Evaluation note* Encounter Date Diagnosis [...] with another xray. She can see my FAMILY LAW LEGAL ASSISTANT. 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 She understands the associated risks with this medication and agrees that it provides reasonable benefit in regards to her pain control and level of function. This medication was refilled today. Jul, Other spondylosis with radiculopathy, lumbar region (ICD-10 - M47.26) Jul, Trochanteric bursitis of left hip (ICD-10 - M70.62) Jul, Other Above note writ ten by Henry Salter MA, Food Service. Edited and approved by Dr. Barry Valenzuela MD. [facility] Other 06-15-2022 Evaluation note* Encounter Date Diagnosis [...] note writ ten by Shahla Lopez LPN, Food Service. Edited and approved by Dr. Barry Valenzuela MD. [facility] Other 05-24-2022 Evaluation note* Encounter Date Diagnosis [...] Arthropathy of right hip (ICD-10 - M16.11) [facility] Other 04-11-2022 Evaluation note* Encounter Date Diagnosis [...] note writ ten by Henry Salter CMA, Food Service. Edited and approved by Dr. Barry Valenzuela MD. [facility] Other 03-09-2022 Evaluation note* Encounter Date Diagnosis [...] note writ ten by Henry Salter CMA, Food Service. Edited and approved by Dr. Barry Valenzuela MD. [facility] Other 03-04-2022 Evaluation note* Encounter Date Diagnosis Assessment Notes Treatment Notes Treatment Clinical Notes Nov, Tear of gluteus medius tendon (ICD-10 - S76.019A) [facility] Other 02-11-2022 Evaluation note* Encounter Date Diagnosis [...] Oct, Left hip pain (ICD-10 - M25.552) [facility] Other 02-07-2022 Evaluation note* Encounter Date Diagnosis [...] considering a referral to an orthopedic sports information director for her hip should this upcoming injection not provide considerable relief. Oct, Other spondylosis with radiculopathy, lumbar region (ICD-10 - M47.26) Patient notes upcoming appointment with neurosurgery. Oct, Other Above note writ ten by Shahla Lopez LPN, Food Service. Edited and approved by Dr. Barry Valenzuela MD. [facility] Other 01-10-2022 Evaluation note* Encounter Date Diagnosis [...] could consider referral to a orthopedic sports information director for her hip. Sep, Other chronic pain (ICD-10 - G89.29) Sep, Other Above note writ ten by Henry Salter CMA, Food Service. Edited and approved by Dr. Barry Valenzuela MD. [facility] Other 12-23-2021 Evaluation note* Encounter Date Diagnosis [...] Aug, Left hip pain (ICD-10 - M25.552) [facility] Other 12-16-2021 Evaluation note* Encounter Date Diagnosis [...] could consider referral to a orthopedic sports information director. Aug, Other chronic pain (ICD-10 - G89.29) Aug, Other Above note writ ten by Henry Salter CMA, Food Service. Edited and approved by Dr. Barry Valenzuela MD. [facility] Other 12-07-2021 Evaluation note* Encounter Date Diagnosis [...] Above note writ ten by Tsering MARROQUIN, Food Service. Edited and approved by Dr. Barry Valenzuela MD. [facility] Other 11-29-2021 Evaluation note* Encounter Date Diagnosis Assessment Notes Treatment Notes Treatment Clinical Notes Jul, Stenosis, spinal, lumbar (ICD-10 - M48.06) [facility] Other 11-19-2021 Evaluation note* Encounter Date Diagnosis Assessment Notes Treatment Notes Treatment Clinical Notes Jul, Left hip pain (ICD-10 - M25.552) [facility] Other 11-18-2021 Evaluation note* Encounter Date Diagnosis [...] suspect this is the source of pathology [facility] Other [facility] Other Evaluation noteNo assessment information available [facility] Work Phone: [facility] Other Evaluation note* Diagnosis Onset Date Resolution Status Chronic pain acute Inflammation of right sacroiliac joint acute Trochanteric bursitis acute Chronic pain acute DJD (degenerative joint disease), lumbosacral acute Inflammation of right sacroiliac joint acute [facility] Work Phone: Evaluation note* Diagnosis Onset Date Resolution Status Chronic pain acute Inflammation of right sacroiliac joint acute Trochanteric bursitis acute Chronic pain acute DJD (degenerative joint disease), lumbosacral acute Inflammation of right sacroiliac joint acute Chronic obstructive pulmonar y disease with (acute) exacerbation acute Chronic obstructive pulmonar y disease with (acute) lower respiratory infection acute [facility] Work Phone: evaluation note* Diagnosis Onset Date Resolution Status Inflammation of right sacroiliac joint acute Trochanteric bursitis acute DJD (degenerative joint disease), lumbosacral acute Inflammation of right sacroiliac joint acute Chronic bronchitis acute Hypothyroid acute Lumbar spondylosis acute BRET (obstructive sleep apnea) acute [facility] Work Phone: Evaluation note* Diagnosis Onset Date Resolution Status Inflammation of right sacroiliac joint acute Trochanteric bursitis acute DJD (degenerative joint disease), lumbosacral acute Inflammation of right sacroiliac joint acute Chronic bronchitis acute Hypothyroid acute Lumbar spondylosis acute BRET (obstructive sleep apnea) acute DJD (degenerative joint disease), lumbosacral acute Inflammation of right sacroiliac joint acute [facility] Work Phone: evaluation note* Diagnosis Onset [...] of chroni c obstructive airways disease noneactive [facility] Work Phone: Evaluation note* Diagnosis Onset [...] acute Inflammation of right sacroiliac joint acute [facility] Work Phone: Evaluation note* Diagnosis Onset [...] acute Inflammation of right sacroiliac joint acute [facility] Work Phone: Evaluation note* Diagnosis Onset [...] edema acute BRET (obstructive sleep apnea) acute [facility] Work Phone: Evaluation note* Diagnosis Onset [...] acute Inflammation of right sacroiliac joint acute [facility] Work Phone: Evaluation note* Diagnosis Onset [...] acute Painful total knee replacement, right acute [facility] Work Phone: Evaluation note* Diagnosis Onset [...] joint disease), lumbosacral acute Knee pain acute [facility] Work Phone: Evaluation note* Diagnosis Onset [...] joint disease), lumbosacral acute Knee pain acute [facility] Work Phone: Evaluation note* Diagnosis Onset [...] joint disease), lumbosacral acute Knee pain acute [facility] Work Phone: Evaluation note* Diagnosis Onset [...] joint disease), lumbosacral acute Knee pain acute [facility] Work Phone: Evaluation note* Diagnosis Onset [...] Obesity acute BRET (obstructive sleep apnea) acute [facility] Work Phone: History general Narrative - [...] [id number] [id number] 03/05/2021 Hospitalization History See above [facility] Other Hisrwgw general Narrative - Reported* Type Description Date [...] shoulder, left 02/2023 Hospitalization History See above [facility] Other History general Narrative - [facility] Other Hospital Discharge instructions Additional Instructions DISCHARGE [...] OTHER -Any problems call the office at [phone] or return to Emergency Room. If you [...] in one week; call the office at [phone] if your appointment has not been made already. Call [phone] for further questions.[facility] Work Phone: Summary Purpose Family History Relationship [...] Right hip pain (M25. 551) Referral Organization [facility] [employer] Referring Provider First Name Barry Referring Provider Last Name Nicolas Referring Provider Specialty Pain Medici ne Referred Organization [facility] [employer] Referred Provider Coy Cassidy II Referred Address [address] [facility] [place],[address] Referred Provider Specialty Orthopedic S urgery Referral [...] ( M47.816) Referral Organization [facility] urosurgery Referring Provider First Name Benigno Referring Provider Last Name Marcia Referring Provider Specialty Neurologica l Surgery Referred Organization [facility] Pain Managemen t Referred Provider Albin Sweeney Referred Address [address],[address] Referred Provider Specialty Pain Medicin e Referral [...] R SI & BURSA Cough, Chills-COVID Negative- [phone] Reason for Visit Chronic pain Inflammation of [...] R SI & BURSA Cough, Chills-COVID Negative- [phone] month follow up Reason for Visit Inflammation of righ t sacroiliac joint Trochanteric bursitis DJD (degenerative joint disease), lumbosacral Inflammation of right sacroiliac joint Chronic bronchitis Hypothyroid Lumbar spondylosis BRET (obstructive sleep apnea) Chief Complaint M25.551 [address]25.[address] CASSIDY RIGHT SI & TROCH BURSA INJ/DS F/U AFTER R SI & BURSA Cough, Chills-COVID Negative- [phone] month follow up RIGHT LUMBAR FACET [...] R SI & BURSA Cough, Chills-COVID Negative- [phone] month follow up RIGHT LUMBAR FACET [...] R SI & BURSA Cough, Chills-COVID Negative- [phone] month follow up RIGHT LUMBAR FACET [...] R SI & BURSA Cough, Chills-COVID Negative- [phone] month follow up RIGHT LUMBAR FACET [...] on right leg 1 month follow up OP/FAMILY LAW LEGAL ASSISTANT RIGHT LEG PAIN Reason for Visit Acute [...] on right leg 1 month follow up OP/FAMILY LAW LEGAL ASSISTANT RIGHT LEG PAIN z96.651 t84.84xa Reason for [...] on right leg 1 month follow up OP/FAMILY LAW LEGAL ASSISTANT RIGHT LEG PAIN z96.651 t84.84xa 1 MONTH [...] on right leg 1 month follow up OP/FAMILY LAW LEGAL ASSISTANT RIGHT LEG PAIN z96.651 t84.84xa 1 MONTH [...] on right leg 1 month follow up OP/FAMILY LAW LEGAL ASSISTANT RIGHT LEG PAIN z96.651 t84.84xa 1 MONTH [...] n right leg 1 month follow up OP/FAMILY LAW LEGAL ASSISTANT RIGHT LEG PAIN z96.651 t84.84xa 1 MONTH [...] n right leg 1 month follow up OP/FAMILY LAW LEGAL ASSISTANT RIGHT LEG PAIN z96.651 t84.84xa 1 MONTH [...] section and content) DATE CREATED AUTHOR 04/15/2018 [facility] DATE CREATED AUTHOR AUTHOR'S ORGANIZ ATION 06/22/2018 [facility] DATE CREATED AUTHOR AUTHOR'S ORGANIZ ATION 07/04/2018 [facility] DATE CREATED AUTHOR AUTHOR'S ORGANIZ ATION 12/07/2022 [facility] DATE CREATED AUTHOR AUTHOR'S ORGANIZ ATION 03/18/2024 [facility] EPIC DATE CREATED AUTHOR AUTHOR'S ORGANIZ ATION 04/16/2024 [facility] REASON FOR VISIT (unrecogniz [...] 2023 Team Status: Inactive Member Role Status nAn Saravia Primary Care Provider Active Start: April [...] BE BASED ON THE PRIMARY CLINICAL RECORDS. [facility] [employer] [facility]. provides no warranty or guarantee of the accuracy or completeness of information in this document.
--- NOTE | 2024-07-11 09:14 | XR_ITS ---
The [address] [address] Patient Name: NORIS ARCE MRN: [id number] date: 1945 Sex: F Assigned Patient Location: [facility] Current Patient Location: Accession/Order Number: [id number] Exam Date: 07/11/2024 09:26 Report Date: 07/12/2024 07:33 At the request of: ARLENE MUNOZ Procedure: XR DEXA axial skeleton EXAMINATION: XR DEXA axial skeleton, 07/11/2024 9:26 AM EDT HISTORY: Age Related Osteoporosis COMPARISON: None. TECHNIQUE: Dual-energy X-ray absorptiometry (DEXA) bone density study performed for the axial skeleton. FINDINGS: Bone mineral density of the left total femur measures 0.73 g/sq cm T score -1.8. Osteopenia Lowest bone mineral density is in the left forearm radius measuring 0.431 g/sq cm for T score of 4.0. Osteoporosis XR/XR DEXA axial skeleton IMPRESSION: Osteoporosis. High fracture risk Pharmacologic treatment recommendations * No uniform recommendation applies to all patients. Management plans must be individualized. * Consider initiating pharmacologic treatment in postmenopausal women and men >= 50 years of age who have the following: Primary fracture prevention: * T-score <= - 2.5 at the femoral neck, total hip, lumbar spine, 33% radius (some uncertainty with existing data) by DXA. * Low bone mass (osteopenia: T-score between - 1.0 and - 2.5) at the femoral neck or total hip by DXA with a 10-year hip fracture risk >= 3% or a 10-year major osteoporosis-related fracture risk >= 20% (i.e., clinical vertebral, hip, forearm, or proximal humerus) based on the [place]-adapted FRAXregistered model. Secondary fracture prevention: * Fracture of the hip or vertebra regardless of BMD [4, 5]. * Fracture of proximal humerus, pelvis, or distal forearm in persons with low bone mass (osteopenia: T-score between - 1.0 and - 2.5). The decision to treat should be individualized in persons with a fracture of the proximal humerus, pelvis, or distal forearm who do not have osteopenia or low BMD [12, 13]. Dennys MS, Morris SL, Edilson KL, Angel EM, Mert KG, Molina AJ, Kvng ES. The clinician's guide to prevention and treatment of osteoporosis. Osteoporos Int. 2021;33(10):4360-7542. doi: 10.1007/s69170-155-78795-e. Epub 2021Jan 22. Erratum in: Osteoporos Int. 2021Apr 23;: PMID: [id number]; PMCID: [id number]. Electronically authenticated by: VALERIA WANG Date: 07/12/2024 07:33
== END 2024-07-11 09:13 | disposition home or self-care (01) ==
LOC: RAD 09:12
PROVIDERS: PCP Internal Medicine; Visit Provider Internal Medicine
DX: M81.0 Age-related osteoporosis without current pathological fracture (principal)
CPT/HCPCS: 77080

== ENCOUNTER 2024-08-03 15:09 | Outpatient (OUT) | payer MEDICARE, OTHER, SELFPAY ==
[2024-08-03 15:56] LABS: Anion Gap 14.4; BUN Creatinine Ratio 22.7; Calcium 9.2 mg/dL (8.5-10.1); Carbon Dioxide 23.7 mmol/L (21.0-32.0); Chloride 108 mmol/L (98-107); Estimated GFR (African America 53 (>=60 mL/min/1.73m^2); Estimated GFR (Non-African Ame 44 (>=60 mL/min/1.73m^2); Glucose 98 mg/dL (74-106); Potassium 4.1 mmol/L (3.5-5.1); Sodium 142 mmol/L (136-145)
== END 2024-08-03 15:10 | disposition home or self-care (01) ==
LOC: LAB 15:11
PROVIDERS: PCP Internal Medicine; Visit Provider Internal Medicine
DX: M81.0 Age-related osteoporosis without current pathological fracture (principal)
CPT/HCPCS: 36415; 80048; 82306

== ENCOUNTER 2024-11-13 07:36 | Outpatient (RCR) | payer MEDICARE, OTHER, SELFPAY ==
[2024-11-10 16:08] LABS: Anion Gap 13.3; BUN Creatinine Ratio 9.1; Calcium 9.9 mg/dL (8.5-10.1); Carbon Dioxide 30.1 mmol/L (21.0-32.0); Chloride 107 mmol/L (98-107); Estimated GFR (African America 47 (>=60 mL/min/1.73m^2); Estimated GFR (Non-African Ame 39 (>=60 mL/min/1.73m^2); Glucose 89 mg/dL (74-106); Potassium 4.4 mmol/L (3.5-5.1); Sodium 146 mmol/L (136-145)
[2024-11-13 09:20] VITALS: BP 126/80; PULSE 66; TEMP 36.4; O2SAT 96
[2024-11-13] MEDS: DENOSUMAB 60 MG/ML SYRINGE SUBQ (09:44)
== END 2024-11-24 23:59 | disposition home or self-care (01) ==
LOC: INF 07:36
PROVIDERS: PCP Internal Medicine; Visit Provider Internal Medicine
DX: M81.0 Age-related osteoporosis without current pathological fracture (principal)
CPT/HCPCS: 36415; 80048; 82306; 96372; J0897

== ENCOUNTER 2024-12-21 11:00 | Outpatient (OUT) | payer MEDICARE, OTHER, SELFPAY ==
[2024-12-21 12:20] LABS: Anion Gap 12.5; BUN Creatinine Ratio 17.2; Calcium 9.2 mg/dL (8.5-10.1); Carbon Dioxide 28.4 mmol/L (21.0-32.0); Chloride 103 mmol/L (98-107); Estimated GFR (African America >60 (>=60 mL/min/1.73m^2); Estimated GFR (Non-African Ame 58 (>=60 mL/min/1.73m^2); Glucose 77 mg/dL (74-106); Potassium 3.9 mmol/L (3.5-5.1); Sodium 140 mmol/L (136-145)
[2024-12-21 12:30] LABS: Creatinine Urine Random 58.31 mg/dL (20.00-300.00); Microalbumin Urine Random <1.3 mg/dL (<=30.0)
== END 2024-12-21 11:01 | disposition home or self-care (01) ==
LOC: LAB 11:02
PROVIDERS: PCP Internal Medicine; Visit Provider Internal Medicine
DX: N18.9 Chronic kidney disease, unspecified (principal)
CPT/HCPCS: 36415; 80048; 82043; 82570

== ENCOUNTER 2025-05-08 08:44 | Outpatient (OUT) | payer MEDICARE, OTHER, SELFPAY ==
--- OUTSIDE RECORDS SUMMARY | 2025-05-03 08:09 | XMS_ITS | Continuity of Care Document ---
Author Organization [facility] Address [address] [place] [address] Phone Care Team Providers Care [employer] Name Role Phone Manjit Chucho RAZA Primary Care Provider [phone] Chucho Saravia DO Attending Provider [phone] Barry Valenzuela MD Attending Provider [phone] Apryl Mclean MD Attending Provider Mouna Rees APRN Attending Provider Care Teams Patient Care Team Team Status: Active Member Role Status Dates Chucho Saravia DO Primary Care Provider Active Visit Care Team Team Status: Inactive Member Role Status Dates Chucho Saravia DO Primary Care Provider Active Start: February 20, 2025 End: February 20, 2025 Chucho Saravia DO Attending Provider Active Sta rt: February 20, 2025 End: February 20, 2025 Visit Care Team Team Status: Inactive Member Role Status Dates Chucho Saravia DO Primary Care Provider Active Start: February 21, 2025 End: February 21, 2025 Barry Valenzuela MD Attending Provider Active Sta rt: February 21, 2025 End: February 21, 2025 Visit Care Team Team Status: Inactive Member Role Status Dates Chucho Saravia DO Primary Care Provider Active Start: March 26, 2025 End: March 26, 2025 Chucho Saravia DO Attending Provider Active Sta rt: March 26, 2025 End: March 26, 2025 Visit Care Team Team Status: Inactive Member Role Status Dates Chucho Saravia DO Primary Care Provider Active Start: March 28, 2025 End: March 28, 2025 Barry Valenzuela MD Attending Provider Active Sta rt: March 28, 2025 End: March 28, 2025 Visit Care Team Team Status: Inactive Member Role Status Dates Chucho Saravia DO Primary Care Provider Active Start: April 16, 2025 End: April 16, 2025 Apryl Mclean MD Attending Provider Active Start: April 16, 2025 End: April 16, 2025 Visit Care Team Team Status: Inactive Member Role Status Dates Chucho Saravia DO Primary Care Provider Active Start: April 30, 2025 End: April 30, 2025 Barry Valenzuela MD Attending Provider Active Sta rt: April 30, 2025 End: April 30, 2025 Patient Care Team Team Status: Inactive Member Role Status Dates Chucho Saravia DO Primary Care Provider Active Start: May 03, 2025 End: May 03, 2025 Mouna Rees APRN CARDIAC TECHNOLOGIST-C Attending Provider Act arlet Start: May 03, 2025 End: May 03, 2025 Chief Complaint and Reason for Visit Chief Complaint Admit Date B12 Shot February 20, 2025 10:37 am 1 month February 21, 2025 10:58 am B12 shot March 26, 2025 9:15 am 1 MONTH March 28, 2025 10:56 am [place] HAND PAIN WX FR April 16 11:19am 1 MONTH April 30, 2025 10: 48am B12 Shot May 03, 2025 12: 00pm Reason for Visit Admit Date Chronic pain February 21, 2025 10:58 am DJD (degenerative joint disease), lumbos acral February 21, 2025 10:58am Trochanteric bursitis February 21, 2025 10: 58am Bilateral knee pain March 28, 2025 10:56 am Chronic pain March 28, 2025 10:56 am DJD (degenerative joint disease), lumbos acral March 28, 2025 10:56am Trochanteric bursitis March 28, 2025 10: 56am 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 April 16, 2025 11:19am Bilateral carpal tunnel syndrome April 162024 11:19am Right hip pain April 30, 2025 10: 48am Chronic pain April 30, 2025 10: 48am DJD (degenerative joint disease), lumbos acral April 30, 2025 10:48am Trochanteric bursitis April 30, 2025 1 0:48am Allergies, Adverse Reactions, Alerts Allergen Type Severity Reaction Last Updated Verified Status Comments adhesive tape Allergy Unknown Rash;blisteri ng March 28, 2025 11:20am Yes Active May use paper tape mannitol Allergy Unknown Unknown Reaction March 28, 2025 11:20am Yes Active water for injection,steri le Allergy Unknown Unknown Reaction March 28, 2025 11:20am Yes Active zoledronic acid Allergy Unknown Unknown Reaction March 28, 2025 11:20am Yes Active Social History Smoking Status Status Start Date End Date Date of Observa tion Ex-smoker (finding) March 10:46am Observation Status Observation Response Date of Response Legal Sex Female (finding) Sex Assigned At Female December Family History Relationship Condition Age at Onset Recorded Date/T brando father Coronary artery disease Unknown Myocardial infarction Unknown Unknown Heart disease Unknown sister Malignant neoplasm Unknown Osteoarthritis Unknown brother Hypertension Unknown Malignant neoplasm Unknown mother Multiple sclerosis Unknown Unknown Problems Active Problems Medical Problem Onset Date Status Comments 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 Unknown Active Chronic venous insufficiency of lower extremity Unknown Active Medicare annual wellness vis it, subsequent Unknown Active BRET (obstructive sleep apnea) Unknown Active LALITA (generalized anxiety disorder) Unknown Active Trochanteric bursitis of left hip Unknown Active Screening mammogram for breast cancer Unknown Act arlet Other spondylosis with radic ulopathy, lumbar region Unknown Active Chronic pain Unknown Active Osteoporosis Unknown Active Pernicious anemia Unknown Active Hypercholesterolemia Unknown Active Hypothyroid Unknown Active Trochanteric bursitis Unknown Active Trochanteric bursitis Unknown Active Chronic kidney disease Unknown Active DJD (degenerative joint dise ase), lumbosacral Unknown Active Inflammation of right sacroiliac joint Unknown Ac tive Bilateral hand pain Unknown Active Bilateral knee pain Unknown Active Right hip pain Unknown Active Hip pain Unknown Active Bilateral carpal tunnel syndrome Unknown Active Chronic bronchitis Unknown Active Echo: LVE F 65%, RVSP 38, normal RV size/function - 03/2024 Lumbar spondylosis Unknown Active Obesity Unknown Active Inactive/Resolved Problems Medical Problem Onset Date Status Comments Synovial cyst of lumbar facet joint Unknown Resol ping Problem List clean-up per request of Phys. EHR Cmte Osteomyelitis of sacrum Unknown Resolved Prob mona List clean-up per request of Phys. EHR Cmte Nonhealing surgical wound Unknown Resolved Pr oblem List clean-up per request of Phys. EHR Cmte Closed right femoral fracture Unknown Resolved Problem List clean-up per request of Phys. EHR Cmte Lumbar stenosis with neuroge venancio claudication Unknown Resolved Problem List clean-u p per request of Phys. EHR Cmte Medications Medication Status Dose Units Route Directions Qty Days St art Date Stop Date End Date Instructions Adherence Alprazolam 0.5 mg tablet Discont inued 0.25 MG PO Twice daily 30 30 2023 2:16pm December 09, 2023 1:10p m 1pm and HS Albuterol Sulfate 2.5 mg /3 mL (0.083 %) solution for nebulizatio n Discont inued 2.5 MG INHALA TION Every 6 hours 180 30 2023 2:40pm Febru shar2023 1:44p m Albuterol Sulfate 2.5 mg /3 mL (0.083 %) solution for nebulizatio n Discont inued 2.5 MG INHALA TION Every 6 hours as needed for shortness of breath or wheezing 180 2023 1:43pm Febru 2023 10:27 am Albuterol Sulfate 2.5 mg /3 mL (0.083 %) solution for nebulizatio n Discont inued 2.5 MG INHALA TION Every 6 hours as needed for shortness of breath or wheezing 360 30 2023 10:27a m Octob er 2023 5:17p m Fluticasone Propion-Sandip meterol 250-50 mcg/dose blister with device Discont inued 0 .ROUTE .COMPLEX 60 2023 9:26am December 13, 2023 10:14 am INHALE 1 PUFF BY MOUTH TWICE DAILY Alprazolam 0.5 mg tablet Discont inued 0.5 MG PO Twice daily 45 December 09, 2023 1:08pm Septe er 2023 8:44a m 1/2 tab PO q AM and 1 tab PO q HS Furosemide 20 mg tablet Discont inued 0 .ROUTE .COMPLEX 45 December 09, 2023 1:09pm March 31, 2024 10:01 am TAKE 1 TABLET BY MOUTH EVERY OTHER DAY Trazodone 50 mg tablet Discont inued 0 .ROUTE .COMPLEX 180 December 09, 2023 1:09pm Septe mber 2023 7:40p m TAKE 2 TABLETS BY MOUTH ONCE DAILY AT BEDTIME Cefuroxime Axetil 500 mg tablet Discont inued 500 MG PO Twice daily 10 January 13, 2024 12:00a m March 31, 2024 10:01 am Denosumab (Prolia) 60 mg/mL syringe Active 60 MG SUBCUT EVERY 6 MONTHS February 01, 2024 4:59pm Unknown Cefuroxime Axetil 500 mg tablet Discont inued 500 MG PO Twice daily 10 April 03, 2024 12:00a m Dece 2023 11:17 am Fluticasone Propion-Sandip meterol (Advair Diskus) 250-50 mcg/dose blister with device Discont inued 1 INH INHALA TION Twice daily April 10, 2024 12:00a m April 10, 2024 2:13p m Fluticasone Propion-Sandip meterol 250-50 mcg/dose blister with device Discont inued 0 .ROUTE .COMPLEX 60 April 10, 2024 2:12pm Augus t 2023 9:09p m INHALE 1 PUFF TWICE DAILY Potassium Chloride 20 mEq tablet extended release Active 0 .ROUTE .COMPLEX 90 May 01, 2024 11:05a m Take 1 tablet by mouth once daily Unknown Fluticasone Propion-Sandip meterol 250-50 mcg/dose blister with device Active 0 .ROUTE .COMPLEX 60 May 09, 2024 9:09pm INHALE 1 PUFF TWICE DAILY Unknown Alprazolam 0.5 mg tablet Discont inued 0.5 MG PO .COMPLEX 45 30 2023 8:43am November 27, 2024 2:38p m 0.5 mg orally 1/2 tab q am and 1 tab q evening; Levothyroxi ne 150 mcg tablet Active 0 .ROUTE .COMPLEX 90 2023 7:39pm Take 1 tablet by mouth once daily Unknown Torsemide 20 mg tablet Discont inued 0 .ROUTE .COMPLEX 30 2023 7:40pm Febru shar 2024 11:35 am Take 1 tablet by mouth once daily Trazodone 50 mg tablet Active 0 .ROUTE .COMPLEX 180 2023 7:40pm TAKE 2 TABLETS BY MOUTH ONCE DAILY AT BEDTIME Unknown Diclofenac Sodium 75 mg tablet,anjana yed release (DR/EC) Discont inued 75 MG PO Twice daily 180 90 2023 8:56pm Febru shar 2024 11:34 am Albuterol Sulfate 2.5 mg /3 mL (0.083 %) solution for nebulizatio n Discont inued 0 .ROUTE .COMPLEX 360 Octobe r 2023 5:16pm Octob er 2023 12:16 pm USE 3 ML IN NEBULIZER EVERY 6 HOURS NEEDED FOR SHORTNESS OF BREATH FOR WHEEZING Albuterol Sulfate 2.5 mg /3 mL (0.083 %) solution for nebulizatio n Discont inued 0 .ROUTE .COMPLEX 360 Octobe r 2023 12:15p m Sepua ry 2024 7:46p m USE 3 ML IN NEBULIZER EVERY 6 HOURS NEEDED FOR SHORTNESS OF BREATH FOR WHEEZING Dexamethaso ne Sodium Phos (Pf) 4 mg/mL solution Discont inued 6 MG IM Daily 2023 1:00am November 29, 2024 12:19 pm as directed with physical therapy up to three times per week Albuterol Sulfate 2.5 mg /3 mL (0.083 %) solution for nebulizatio n Discont inued 0 .ROUTE .COMPLEX 180 2024 7:46pm January 14, 2025 6:59p m USE 1 VIAL IN NEBULIZER EVERY 6 HOURS NEEDED FOR SHORTNESS OF BREATH FOR WHEEZING Diclofenac Sodium 75 mg tablet,anjana yed release (DR/EC) Discont inued 75 MG PO Once 90 2024 11:34a m April 16, 2025 11:31 am Torsemide 20 mg tablet Active 20 MG PO .QOD 2024 11:34a m Unknown Alprazolam 0.5 mg tablet Active 0.5 MG PO .COMPLEX 45 November 27, 2024 2:34pm 0.5 mg orally; 1/2 tablet q am and 1 tab q HS Unknown Escitalopra m Oxalate 10 mg tablet Active 0 .ROUTE .COMPLEX December 23, 2024 3:44pm Take 1 tablet by mouth once daily Unknown Doxycycline Hyclate 100 mg capsule Discont inued 100 MG PO Twice daily December 26, 2024 12:00a m January 25, 2025 11:23 am Albuterol Sulfate 2.5 mg /3 mL (0.083 %) solution for nebulizatio n Discont inued 0 .ROUTE .COMPLEX 360 January 14, 2025 6:59pm 2025 4:05p m USE 1 VIAL IN NEBULIZER EVERY 6 HOURS NEEDED FOR SHORTNESS OF BREATH FOR WHEEZING Albuterol Sulfate 2.5 mg /3 mL (0.083 %) solution for nebulizatio n Active 0 .ROUTE .COMPLEX 360 2025 4:04pm USE 1 VIAL IN NEBULIZER EVERY 6 HOURS NEEDED FOR SHORTNESS OF BREATH FOR WHEEZING DX: J41.0 - Chronic bronchitis, simple Unknown Montelukast 10 mg tablet Discont inued 10 MG PO Daily April 07, 2018 12:00a m Septe mber 2017 3:05p m Alprazolam 0.5 mg tablet Discont inued 0.25 MG PO Twice daily April 07, 2018 12:00a m Febru shar 2023 2:20p m 1pm and HS Albuterol Sulfate (Proair Hfa) 90 mcg/actuati on Hfa Aerosol Inhaler Discont inued 2 UNIT INHALA TION Daily as needed for asthma April 07, 2018 12:00a m Apr 2017 11:35 am 2 unit inhaled Duloxetine 60 mg capsule,del ayed release(DR/ EC) Discont inued 60 MG PO Every morning April 07, 2018 12:00a m February 12, 2023 10:25 am Hydrocodone -Acetaminop hen ([place]) 5-325 mg Tablet Discont inued 1 TAB PO EVERY 4-6 HOURS as needed for Pain 7 April 08, 20182017 11:35 am Multivitami n (Multiple Vitamins) Tablet Discont inued 1 TAB PO Daily May 25, 2018 12:00a m Aprus 2017 2:36p m Docusate Sodium (Stool Softener) 100 mg Capsule Discont inued 100 MG PO Daily as needed for Constipatio n May 25, 2018 12:00a m December 13, 2023 10:14 am Diclofenac Sodium 75 mg tablet,anjana yed release (/EC) Discont inued 75 MG PO Twice daily May 25, 2018 12:00a m March 07, 2021 8:48a m Instructed to stop 5-7 days preop Cholecalcif rae (Vitamin D3) (Vitamin D3) 1,000 unit Capsule Discont inued 4000 UNIT PO Daily May 25, 2018 12:00a m Febru shar 2020 9:33a m Calcium Carbonate-V itamin D3 (Calcium 600 + D(3)) 600 mg(1,500mg) -400 unit Tablet Discont inued 1 TAB PO Daily May 25, 2018 12:00a m February 19, 2021 4:23p m Multivitami n (Multiple Vitamins) Tablet Discont inued 1 TAB PO Daily May 25, 2018 12:00a m December 13, 2023 10:15 am Montelukast 10 mg tablet Discont inued 10 MG PO Daily 14 2017 3:05pm Octob er 2018 3:10p m Oxycodone-A cetaminophe n (Percocet) 5-325 mg tablet Discont inued 1 TAB PO EVERY 4-6 HOURS as needed for pain 30 2017 Octob er 2017 9:37a m 1 OR 2 TABS PO Q 4 TO 6 HRS PRN PAIN Cholecalcif rae (Vitamin D3) (Vitamin D3) 25 mcg (1,000 unit) Capsule Discont inued 100 MCG PO Daily 2020 1:00February 19, 2021 4:19p m Ascorbic Acid (Vitamin C) (Vitamin C) 500 mg Tablet Discont inued 500 MG PO Daily 2020 1:00am February 19, 2021 4:22p m unsure of dose Zinc 50 mg Tablet Discont inued 50 MG PO Daily 2020 1:00am February 19, 2021 4:20p m Echinacea Purpurea Extract (Echinacea) 125 mg Tablet Discont inued 125 MG PO Daily 2020 1:00February 19, 2021 4:23p m unsure of dose Denosumab (Prolia) 60 mg/mL Syringe Discont inued 60 MG SUBCUT EVERY 6 MONTHS 2020 1:00am February 01, 2024 5:00p m Hydrocodone -Acetaminop hen 5-325 mg Tablet Discont inued 1 TAB PO Twice daily as needed for Pain ua 2020 1:00am Febru shar 2020 1:35p m Cyclobenzap rine 10 mg tablet Discont inued 10 MG PO Three times daily as needed for back spasms 40 2020 1:00am February 19, 2021 4:23p m Cephalexin 500 mg capsule Discont inued 500 MG PO Three times daily 15 2020 1:00am February 19, 2021 4:23p m Oxycodone 5 mg capsule Discont inued 5 - 10 MG PO Q6H as needed for pain 40 8 2020February 19, 2021 4:20p m Prednisone 10 mg tablets,dos e pack Discont inued 1 dose pk PO per package directions 30 2020 1:00am February 19, 2021 4:20p m take 4 tabs for 3 days then take 3 tabs for 3 days then take 2 tabs for 3 days then take 1 tab for 3 days Potassium Chloride (Klor-Con) 20 mEq Packet Discont inued 20 MEQ PO Daily 2016 12:00a m Augus t 2023 11:05 am Naproxen Sodium (Aleve) 220 mg Capsule Discont inued 220 MG PO Q12H 2016 12:00a m April 07, 2018 11:40 pm Levothyroxi ne 175 mcg tablet Discont inued 150 MCG PO Daily 2016 12:00a m December 13, 2023 10:14 am Ipratropium -Albuterol 0.5 mg-3 mg(2.5 mg base)/3 mL Solution For Nebulizatio n Discont inued 0.5 MG INHALA TION Q4H 2016 12:00a m February 12, 2023 10:30 am Trazodone 50 mg tablet Discont inued 100 MG PO Daily at bedtime 2016 12:00a m December 09, 2023 1:10p m May take up to 150 mg if needed Oxycodone-A cetaminophe n 5-325 mg Tablet Discont inued 2016 12:00a m April 07, 2018 11:40 pm Alprazolam 0.5 mg tablet Discont inued 0.25 MG PO Daily 2016 12:00a m April 07, 2018 11:40 pm Gabapentin 300 mg capsule Discont inued 2016 12:00a m April 07, 2018 11:40 pm Budesonide- Formoterol 160-4.5 mcg/actuati on HFA aerosol inhaler Discont inued 2 UNIT INHALA TION Twice daily 2016 12:00a m January 06, 2019 10:49 am Tramadol 50 mg tablet Discont inued 1 TAB PO Every 6 hours as needed for Pain March 21, 2018 12:00a m April 07, 2018 11:40 pm Furosemide 20 mg tablet Discont inued 20 MG PO every Wednesday, Wednesday, and Wednesday March 21, 2018 12:00a m December 09, 2023 1:10p m 20 mg orally mwf Duloxetine 60 mg capsule,del ayed release(DR/ EC) Discont inued 60 MG PO Daily March 21, 2018 12:00a m April 07, 2018 11:40 pm Alendronate 70 mg tablet Discont inued 70 MG PO every week March 21, 2018 12:00a m u 2020 9:31a m Takes on Wednesday Allopurinol 100 mg Tablet Discont inued March 21, 2018 12:00a m April 07, 2018 11:40 pm Budesonide- Formoterol (Symbicort) 160-4.5 mcg/actuati on HFA aerosol inhaler Discont inued March 21, 2018 12:00a m March 21, 2018 9:19a m Albuterol Sulfate (Proair Hfa) 90 mcg/actuati on Hfa Aerosol Inhaler Discont inued 2 PUFF INHALA TION EVERY 4-6 HOURS as needed for Shortness Of Breath Or Wheezing March 21, 2018 12:00a m February 19, 2021 4:15p m Montelukast 10 mg tablet Discont inued March 21, 2018 12:00a m April 07, 2018 11:40 pm Budesonide- Formoterol 160-4.5 mcg/actuati on HFA aerosol inhaler Discont inued 2 PUFF INHALA TION Twice daily Octobe r 2017 12:00a m February 19, 2021 4:23p m Oxycodone-A cetaminophe n (Percocet) 5-325 mg tablet Discont inued 1 TAB PO Q6H as needed for pain 12 3 Octobe r 2017 Octob er 2017 12:00 am Octob er 2017 12:02 am Oxycodone-A cetaminophe n 5-325 mg tablet Discont inued 1 - 2 TAB PO Q6H as needed for Pain Novemb er 2017 1:00am Sepua ry 2018 9:44a m Echinacea Purpurea Extract (Echinacea) 125 mg Tablet Discont inued MG PO 2018 1:00am Octob er 2018 3:11p m Zinc 50 mg Tablet Discont inued 50 MG PO Daily 2018 1:00am Octob er 2018 3:12p m Oxycodone-A cetaminophe n 5-325 mg tablet Discont inued 1 TAB PO Q6H as needed for pain 7 January 17, 2019Junob er 2018 3:12p m Cefepime 2 gram Recon Soln Discont inued 2 GM IV Q12H February 07, 2019 12:00a m Octob er 2018 3:12p m Budesonide (Pulmicort) 0.5 mg/2 mL Suspension For Nebulizatio n Discont inued 2018 1:00am Sepua ry 2018 9:46a m Hydrocodone -Acetaminop hen 5-325 mg tablet Discont inued 2 TAB PO Q6H as needed for pain 7 2018 ry 2018 1:00a m Sepua ry 2018 1:02a m Metronidazo le 500 mg tablet Discont inued 500 MG PO Q8H 15 5 January 06, 2019 12:00a m January 10, 2019 12:00 am January 11, 2019 12:05 am Cephalexin 500 mg capsule Discont inued 500 MG PO Q8H 15 5 January 06, 2019 12:00a m January 10, 2019 12:00 am January 11, 2019 12:05 am Oxycodone-A cetaminophe n (Percocet) 5-325 mg tablet Discont inued 1 TAB PO Q6H as needed for pain 28 7 January 06, 2019 January 12, 2019 12:00 am January 13, 2019 12:02 am Alprazolam 0.5 mg tablet Discont inued 0.25 MG PO Daily Octobe r 2018 12:00a m Febru shar2020 9:32a m Montelukast 10 mg tablet Discont inued 10 MG PO Daily [facility] r 2018 3:10pm February 12, 2023 10:27 am Zoledronic Acid-Mannit ol-Water (Reclast) 5 mg/100 mL Piggyback Discont inued 5 MG IV Once [facility] 2018 [facility] m Oxycodone-A cetaminophe n (Percocet) 5-325 mg tablet Discont inued 1 TAB PO EVERY 4-6 HOURS as needed for pain 14 4 April 09, 2020 [facility] 2020 9:35a m Gabapentin 600 mg Tablet Discont inued 600 MG PO Twice daily February 19, 2021 12:00a m March 07, 2021 8:48a m Ipratropium -Albuterol 0.5 mg-3 mg(2.5 mg base)/3 mL solution for nebulizatio n Discont inued ML INHALA TION February 19, 2021 12:00a m February 19, 2021 4:24p m Glucosamine Sulfate (Glucosamin e) 500 mg Tablet Discont inued 1000 MG PO Daily February 19, 2021 12:00a m February 12, 2023 10:27 am Alprazolam 0.5 mg tablet Discont inued 0.5 MG PO Daily at bedtime February 19, 2021 12:00a m February 12, 2023 10:13 am Calcium Carbonate 400 mg calcium (1,000 mg) Tablet,Chew able Discont inued 2000 MG PO Daily February 19, 2021 12:00a m December 13, 2023 10:13 am Cholecalcif rae (Vitamin D3) (Vitamin D3) 25 mcg (1,000 unit) Tablet Discont inued 25 MCG PO Daily February 19, 2021 12:00a m December 13, 2023 10:13 am Budesonide- Formoterol (Symbicort) 160-4.5 mcg/actuati on Hfa Aerosol Inhaler Discont inued 1 PUFF INHALA TION Twice daily February 19, 2021 12:00a m February 12, 2023 10:26 am Alprazolam 0.5 mg tablet Discont inued March 05, 2021 12:00a m February 12, 2023 10:13 am Diclofenac Sodium 25 mg Tablet,Anjana yed Release (/Ec) Discont inued 50 MG PO Twice daily with meals as needed for pain 60 March 07, 2021 12:00a m February 12, 2023 10:22 am Gabapentin 300 mg Capsule Discont inued 900 MG PO Twice daily 60 March 07, 2021 12:00a m February 12, 2023 10:27 am Cyclobenzap rine 10 mg tablet Discont inued 10 MG PO Three times daily as needed for back spasms 50 March 07, 2021 12:00a m February 12, 2023 10:26 am Oxycodone 5 mg capsule Discont inued 5 - 10 MG PO Q6H as needed for pain 50 8 March 07, 2021 February 12, 2023 10:28 am Prednisone 10 mg tablets,dos e pack Discont inued 1 dose pk PO per package directions 30 March 07, 2021 12:00a m February 12, 2023 10:28 am take 4 tabs for 3 days then take 3 tabs for 3 days then take 2 tabs for 3 days then take 1 tab for 3 days Cephalexin 500 mg capsule Discont inued 500 MG PO Three times daily 15 March 07, 2021 12:00a m February 12, 2023 10:18 am Fluticasone Propion-Asndip meterol 250-50 mcg/dose blister with device Discont inued 1 INH INHALA TION Daily February 12, 2023 12:00a m Febru 2023 9:26a m Ipratropium [place] 0.02 % solution Discont inued 3 ML INHALA TION Q4H February 12, 2023 12:00a m December 13, 2023 10:14 am Cyclosporin e (Restasis) 0.05 % Dropperette Discont inued 1 DROPS OPHTHA LMIC As Directed February 12, 2023 12:00a m December 13, 2023 10:13 am Diclofenac Sodium 25 mg tablet,anjana yed release (DR/EC) Discont inued 75 MG PO Twice daily with meals as needed for pain February 12, 2023 10:21a m December 21, 2023 11:16 am Cyanocobala min (Vitamin B-12) (Vitamin B-12) 1,000 mcg/mL Solution Discont inued 1000 MCG IM 2 times daily February 12, 2023 12:00a m December 13, 2023 10:13 am dosage not clarified Hydrocodone -Acetaminop hen 5-325 mg Tablet Discont inued 1 TAB PO Q6H as needed for Pain February 12, 2023 12:00a m December 13, 2023 10:14 am Diclofenac Sodium 25 mg tablet,anjana yed release (DR/EC) Discont inued 75 MG PO Twice daily with meals as needed for pain 180 90 December 21, 2023 11:15a m December 21, 2023 11:28 am Diclofenac Sodium 75 mg tablet,anjana yed release (DR/EC) Discont inued 75 MG PO Twice daily 180 90 December 21, 2023 12:00a m Septe mber 2023 11:21 am Albuterol Sulfate 2.5 mg /3 mL (0.083 %) solution for nebulizatio n Discont inued 2.5 MG INHALA TION Every 6 hours Februa 2023 1:00am Febru 2023 2:42p m Hydrocodone -Acetaminop hen 5-325 mg tablet Discont inued 1 TAB PO Twice daily as needed for pain 60 30 January 12, 2024 February 10, 2024 10:59 am Diclofenac Sodium 75 mg tablet,anjana yed release (DR/EC) Discont inued 75 MG PO Twice daily 180 90 Sept2023 11:21a m Septe mber 2023 8:56p m Escitalopra m Oxalate 10 mg tablet Discont inued 10 MG PO Daily 30 2023 12:00a m December 23, 2024 3:44p m Hydrocodone -Acetaminop hen 5-325 mg tablet Discont inued 1 TAB PO Twice daily as needed for pain 60 30 March 13, 2024 April 10, 2024 10:35 am Albuterol Sulfate 90 mcg/actuati on HFA aerosol inhaler Active 2 PUFF INHALA TION Every 4 hours as needed for shortness of breath or wheezing 8.5 December 27, 2024 9:54am Unknown Prednisone 20 mg tablet Discont inued 20 MG PO As Directed 18 December 27, 2024 12:00a m January 25, 2025 11:23 am 1 tab tid w/ food x 3 days, then bid w/ food x 3 days, then qd w/ food x 3 days Hydrocodone -Acetaminop hen 5-325 mg tablet Discont inued 1 TAB PO Twice daily as needed for pain 60 30 Novemb er 2023 1:22p m Hydrocodone -Acetaminop hen 5-325 mg tablet Discont inued 1 TAB PO Twice daily as needed for pain 60 30 Novemb er 2023 12:00 pm Hydrocodone -Acetaminop hen 5-325 mg tablet Discont inued 1 TAB PO Twice daily as needed for pain 60 30 Januar y 2024 Febru shar 2024 12:28 pm Prednisone 20 mg tablet Discont inued 20 MG PO As Directed 9 9 Decemb er 2023 1:00am Dece lissette 2023 11:18 am 1 tab tid w/ food x 3 days, then bid w/ food x 3 days, then qd w/ food x 3 days Cefuroxime Axetil 500 mg tablet Discont inued 500 MG PO Twice daily 14 7 Decemb er 2023 11:17a m November 29, 2024 12:19 pm Prednisone 20 mg tablet Discont inued 20 MG PO As Directed 9 9 Decemb er 2023 11:18a m Febru shar 2024 6:24p m 1 tab tid w/ food x 3 days, then bid w/ food x 3 days, then qd w/ food x 3 days Doxycycline Hyclate 100 mg capsule Discont inued 100 MG PO Once January 25, 2025 11:22a m April 16, 2025 11:31 am Hydrocodone -Acetaminop hen 5-325 mg tablet Discont inued 1 TAB PO Twice daily as needed for pain 60 January 25, 2025 February 21, 2025 11:37 am Hydrocodone -Acetaminop hen 5-325 mg tablet Discont inued 1 TAB PO Twice daily as needed for pain 60 February 21, 2025 March 28, 2025 11:48 am Diclofenac Sodium (Voltaren Arthritis Pain) 1 % gel Active 2 GM TOPICA L Four times daily April 16, 2025 12:00a m apply a pea sized amount to affected area two to four times daily Unknown Hydrocodone -Acetaminop hen 5-325 mg tablet Discont inued 1 TAB PO Twice daily as needed for pain 60 30 Februa ry 2023December 09, 2023 10:22 am Hydrocodone -Acetaminop hen 5-325 mg tablet Discont inued 1 TAB PO Twice daily as needed for pain 60 30 December 09, 2023 January 12, 2024 11:09 am Albuterol Sulfate 90 mcg/actuati on HFA aerosol inhaler Discont inued 2 PUFF INHALA TION Every 4 hours December 13, 2023 12:00a m December 27, 2024 9:55a m Levothyroxi ne 150 mcg tablet Discont inued 150 MCG PO Daily December 13, 2023 12:00a m Septe mber 2023 7:40p m Niacin 50 mg tablet Active 100 MG PO Twice daily December 13, 2023 12:00a m Unknown Azithromyci n 250 mg tablet Discont inued 250 MG PO As Directed 6 December 13, 2023 12:00a m March 31, 2024 10:01 am Prednisone 20 mg tablet Discont inued 20 MG PO As Directed December 13, 2023 12:00a m March 31, 2024 5:00p m 1 tab tid w/ food x 3 days, then bid w/ food x 3 days, then qd w/ food x 3 days Hydrocodone -Acetaminop hen 5-325 mg tablet Discont inued 1 TAB PO Twice daily as needed for pain 60 30 February 10, 2024 March 13, 2024 11:13 am Prednisone 20 mg tablet Discont inued 20 MG PO As Directed 12 January 14, 2024 12:00a m March 31, 2024 5:00p m 1 tab tid w/ food x 2 days, then bid w/ food x 2 days, then qd w/ food x 2 days Hydrocodone -Acetaminop hen 5-325 mg tablet Discont inued 1 TAB PO Twice daily as needed for pain 60 April 10, 2024 Augus t 2023 10:44 am Mupirocin 2 % ointment Discont inued 1 APPLIC TOPICA L Twice daily 22 March 31, 2024 12:00a m November 29, 2024 12:20 pm Triamcinolo ne Acetonide 0.1 % cream Discont inued 1 APPLIC TOPICA L Twice daily 80 March 31, 2024 12:00a m November 29, 2024 12:21 pm Torsemide 20 mg tablet Discont inued 20 MG PO Daily 30 March 31, 2024 12:00a m [facility] 2023 7:40p m Hydrocodone -Acetaminop hen 5-325 mg tablet Discont inued 1 TAB PO Twice daily as needed for pain 60 30 May 08, 2024 Septe mber 2023 11:00 am Hydrocodone -Acetaminop hen 5-325 mg tablet Discont inued 1 TAB PO Twice daily as needed for pain 60 30 Septem lissette 2023 Octob er 2023 10:33 am Hydrocodone -Acetaminop hen 5-325 mg tablet Discont inued 1 TAB PO Twice daily as needed for pain 60 30 Octobe r 2023 Novem lissette 2023 11:38 am Hydrocodone -Acetaminop hen 5-325 mg tablet Discont inued 1 TAB PO Twice daily as needed for pain 60 30 Novemb er 2023ua ry 2024 12:05 pm Hydrocodone -Acetaminop hen 5-325 mg tablet Discont inued 1 TAB PO Twice daily as needed for pain 60 30 Februa 2024November 29, 2024 12:31 pm Hydrocodone -Acetaminop hen 5-325 mg tablet Discont inued 1 TAB PO Twice daily as needed for pain 60 November 29, 2024 December 28, 2024 11:35 am Hydrocodone -Acetaminop hen 5-325 mg tablet Discont inued 1 TAB PO Twice daily as needed for pain 60 December 28, 2024 January 25, 2025 11:39 am Hydrocodone -Acetaminop hen 5-325 mg tablet Discont inued 1 TAB PO Twice daily as needed for pain 60 March 28, 2025 Augus t 2024 11:27 am Hydrocodone -Acetaminop hen 5-325 mg tablet Active 1 TAB PO Twice daily as needed for pain 60 April 30, 2025 Unknown Immunizations Immunization Event Date Not Given Reason Dose Number Driver Examiner Lot Number Vaccine Information Statement (VIS) Detail Administration Location COVID-19 mRNA-1273 (Moderna) November 18, 2020 COVID-19 mRNA-1273 (Moderna) December 16, 2020 COVID-19 mRNA-1273 (Moderna) August 06, 2021 COVID-19 mRNA Bivalent Booster (Pfizer) July 19, 2024 [id number] [facility] diphtheria, TT and pertussis vaccine April 15, 2022 Quadrivalent Influenza (mdv) July 18, 2015 Fluzone TIV High-Dose 65YR+ May 28, 2017 Fluzone TIV High-Dose 65YR+ September 10, 2018 Fluzone TIV High-Dose 65YR+ June 20, 2019 Fluzone TIV High-Dose 65YR+ June 15, 2024 Fluzone QIV High-Dose 65YR+ July 13, 2021 Fluzone QIV High-Dose 65YR+ June 16, 2022 Fluzone QIV High-Dose 65YR+ June 22, 2023 Influenza vaccine, quadrivalent, adjuvanted June 27, 2020 influenza, unspecified formulation August 01, 2014 influenza, unspecified formulation June 02, 2017 influenza, unspecified formulation June 16, 2022 influenza, unspecified formulation June 22, 2023 Pneumococcal Conjugate Vaccine, 13 valent May 01, 2015 Pneumococcal Conjugate Vaccine, 20 valent June 15, 2024 Pneumococcal Polysacc. Vaccine, 23 valent August 06, 2004 Pneumococcal Polysacc. 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, 2023 EDGAR: ()[id number] Issuing Agency: [facility] Device Id: [id number] Expiration Date: 2027-04-26 Lot Number: [id number] 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, 2023 EDGAR: ()[id number] Issuing Agency: [facility] Device Id: [id number] Expiration Date: 2027-07-27 Lot Number: [id number] 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, 2023 EDGAR: ()[id number] Issuing Agency: [facility] Device Id: [id number] Expiration Date: 2027-04-26 Lot Number: [id number] 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, 2023 EDGAR: ()[id number] Issuing Agency: [facility] Device Id: [id number] Expiration Date: 2027-11-25 Lot Number: [id number] 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, 2023 EDGAR: ()[id number] Issuing Agency: [facility] Device Id: [id number] Expiration Date: 2027-12-26 Lot Number: [id number] 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, 2023 EDGAR: ()[id number] Issuing Agency: [facility] Device Id: [id number] Expiration Date: 2027-09-26 Lot Number: [id number] 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, 2023 EDGAR: ()[id number] Issuing Agency: [facility] Device Id: [id number] Expiration Date: 2027-09-26 Lot Number: [id number] 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, 2023 EDGAR: ()[id number] Issuing Agency: [facility] Device Id: [id number] Expiration Date: 2027-09-26 Lot Number: [id number] 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, 2023 EDGAR: ()[id number] Issuing Agency: [facility] Device Id: [id number] Expiration Date: 2027-08-26 Lot Number: [id number] CANCELLOUS 15CC CRUSHED March 05, 2021 Spinal fusion graft kit March 05, 2021 EDGAR: ()[id number] Issuing Agency: [facility] Device Id: [id number] Expiration Date: 2022-02-24 Lot Number: [id number] Polymeric spinal fusion cage , sterile March 05, 2021 EDGAR: ()[id number] Issuing Agency: [facility] Device Id: [id number] Expiration Date: 2025-10-20 Lot Number: [id number] Bone-screw internal spinal fixation system, non-sterile March 05, 2021 EDGAR: [id number] Issuing Agency: [facility] Device Id: [id number] Bone-screw internal spinal fixation system, non-sterile March 05, 2021 EDGAR: [id number] Issuing Agency: [facility] Device Id: [id number] Bone-screw internal spinal fixation system, non-sterile March 05, 2021 EDGAR: [id number] Issuing Agency: [facility] Device Id: [id number] Bone-screw internal spinal fixation system, non-sterile March 05, 2021 EDGAR: +[id number] Issuing Agency: [facility] Device Id: [id number] Orthopaedic bone screw, non-bioabsorbable, non-sterile March 05, 2021 EDGAR: [id number] Issuing Agency: [facility] Device Id: [id number] Orthopaedic bone screw, non-bioabsorbable, non-sterile March 05, 2021 EDGAR: [id number] Issuing Agency: [facility] Device Id: [id number] Orthopaedic bone screw, non-bioabsorbable, non-sterile March 05, 2021 EDGAR: [id number] Issuing Agency: [facility] Device Id: [id number] Orthopaedic bone screw, non-bioabsorbable, non-sterile March 05, 2021 EDGAR: [id number] Issuing Agency: [facility] Device Id: [id number] Orthopaedic instrument surgi poppy connector March 05, 2021 EDGAR: [id number] Issuing Agency: [facility] Device Id: [id number] Bone-screw internal spinal fixation system, non-sterile March 05, 2021 EDGAR: +[id number] Issuing Agency: [facility] Device Id: [id number] Tendon/ligament bone anchor, non-bioabsorbable August 01, 2019 EDGAR: ()[id number] Issuing Agency: [facility] Device Id: [id number] Expiration Date: 2023-05-27 Lot Number: [id number] Tendon/ligament bone anchor, non-bioabsorbable August 01, 2019 EDGAR: ()[id number] Issuing Agency: [facility] Device Id: [id number] Expiration Date: 2023-05-27 Lot Number: [id number] Advance Directives Advance Directive Response Recorded Date/ Time Advance Directives No April 10 10:46am Insurance Providers Guarantor Tiana Louis Address [address] [place] [id number] Contact Info. Home Phone: Payer Policy Id Subscriber's Name Subscriber Id Effectiv e Date Expiration Date [facility] [id number] Tiana Louis [id number] Medicare [id number] Tiana Louis [id number] Encounters Encounter Location(s) Arrival/Admit Date Discharge/Depart Date Provider(s) Departed Physician/Prov ider Office Visit -[facility] February 20, 2025 10:37am February 20, 2025 10:57am Chucho Saravia DO Departed Physician/Prov ider Office Visit -[facility] February 21, 2025 10:58am February 21, 2025 11:47am Christiano Martinez MD Departed Physician/Prov ider Office Visit -[facility] March 26, 2025 9:15am March 26, 2025 9:22am Chucho Saravia DO Departed Physician/Prov ider Office Visit -[facility] March 28, 2025 10:56am March 28, 2025 11:50am Christiano Martinez MD Departed Physician/Prov ider Office Visit -[facility] April 16, 2025 11:19am April 16, 2025 12:00pm Apryl Mclean MD Departed Physician/Prov ider Office Visit -[facility] April 30, 2025 10:48am April 30, 2025 11:27am Christiano Martinez MD Departed Physician/Prov ider Office Visit -[facility] May 03, 2025 12:00pm May 03, 2025 12:07pm Mouna Rees APRN CNP Recent Diagnosis Onset Date Admit Date Chronic pain Unknown February 21, 2025 1 0:58am DJD (degenerative joint disease), lumbosacral Un known February 21, 2025 10:58am Trochanteric bursitis Unknown February 21, 2025 10:58am Bilateral knee pain Unknown March 28 10:56am Chronic pain Unknown March 28, 2025 1 0:56am DJD (degenerative joint disease), lumbosacral Un known March 28, 2025 10:56am Trochanteric bursitis Unknown March 28, 2025 10:56am 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 Unknown April 16, 2025 11:19am Bilateral carpal tunnel syndrome Unknown April 16, 2025 11:19am Right hip pain Unknown April 30, 2025 10:48am Chronic pain Unknown April 30, 2025 10:48am DJD (degenerative joint disease), lumbosacral Un known April 30, 2025 10:48am Trochanteric bursitis Unknown April 10:48am Assessments Diagnosis Onset Date Resolution Status Admit Date Chronic pain chronic February 21 10:58am DJD (degenerative joint disease), lumbosacral chronic February 21, 2025 10:58am Trochanteric bursitis chronic February 21, 2025 10:58am Bilateral knee pain acute March 28, 2025 10:56am Chronic pain chronic March 28 10:56am DJD (degenerative joint disease), lumbosacral chronic March 28, 2025 10:56am Trochanteric bursitis chronic Mar 10:56am 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 acute April 16, 2025 11:19am Bilateral carpal tunnel syndrome acu te April 16, 2025 11:19am Right hip pain acute April 10:48am Chronic pain chronic April 30, 2025 10:48am DJD (degenerative joint disease), lumbosacral chronic April 10:48am Trochanteric bursitis chronic Aug us2024 10:48am Plan of Treatment Author [facility] Authored February 21, 2025 11:46 am Patients primary complaint t kirk remains hip pain, however, this is tolerable. We will continue to manage her pain as best we can with her current medication regimen. Patient has continued need for [place] 5-325 up to twice daily. An OARRS report was processed and reviewed and shows no violations, as well as an opioid risk assessment being completed without concerns. She denies any significant opioid related side effects and appears to be compliant with this medication. The patient was counseled and educated regarding the risks and benefits of half-way opioid use. She understands the associated risks with this medication and agrees that it provides reasonable benefit in regards to her pain control and level of function. This medication was refilled today. We will follow up with the patient in one month, sooner if needed. Anatomy of spine discussed in detail with patient in regards to patients condition. Overall, patient believes their pain is reasonably well controlled and she is in agreement with our treatment plan. Above note written by Henry Salter CMA, [employer]. Edited and approved by Dr. Barry Valenzuela MD. 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 Extensive discussion about current condition and treatment options available including both conservative versus surgical treatment options. Patient was prepped and cortisone was injected into the bilateral thumb CMC and bilateral carpal tunnel under sterile conditions. Patient tolerated well with no adverse reactions. Abilities order provided for OT and bracing. 80 year old woman with bilateral hand pain secondary to bilateral CMC arthritis and likely bilateral carpal tunnel syndrome - Patient exhibits findings consistent with arthritis involving the thumb CMC joint. At this time, I would recommend a course of nonoperative treatment/ continuance with nonoperative treatment including: Scheduled anti-inflammatory medication for control of arthritic flares, intra-articular corticosteroid injections as needed (no more frequently than 12 weeks apart), and supportive bracing during provocative activities (Lebron-Pee, Thumb Spica). Patient was counseled that regular long-term use of anti-inflammatory medications may require further follow-up with patient's primary care physician for medical monitoring. - Should the patient fail to improve with nonoperative treatments, or should nonoperative treatments fail to provide lasting pain relief, we have discussed the possibility of future surgical treatments including: CMC arthrodesis versus trapeziectomy with ligament reconstruction. - Patient was counseled preoperatively that with thumb interposition arthroplasty despite best efforts, there may be some risk of subsidence in the future. In general we can expect up to 25% subsidence. If the patient develops symptomatic subsidence with secondary impingement, patient may require further nonoperative treatment modalities for pain relief versus revision interposition arthroplasty - Trial of topical voltaren gel - Trial of topical lidocaine patch - Trial of cortisone injection to CMC joint - Xrays reviewed with patient and family - Discussion held with patient regarding diagnosis and treatment options. At this time, we've discussed nonoperative versus operative treatment options. - Regarding nonoperative treatment options, this would include an initial trial of cortisone injection, as well as night splinting. In general, cortisone injections are considered diagnostic, therapeutic, and prognostic. A positive response with reduction in symptoms following a cortisone injection, confirms the diagnosis, as well as provides therapeutic treatment with lessening of painful symptoms and temporary decreased compression across the median nerve. However, these results may be temporary, and further treatments either with repeat cortisone injection or surgical treatment may become necessary. In addition, a cortisone injection as prognostic in that if there is a positive response with reduction of symptoms following a cortisone injection, there will likely be improvement following surgical treatment. - Operative treatment would consist of carpal tunnel release - Patient was counseled that the nerve may recover regenerate 1 mm per day or 1 inch per month along the sensory fibers. Regarding motor fibers, we do not know at what point we are intervening in the release of the nerve compression. If there has been permanent injury to the nerve, the motor nerve may not be capable of full recovery, though at least nerve decompression would prevent progression or worsening with further loss of motor fibers. In the recovery of motor strength or function is seen as a bonus not as a guarantee - Recommend EMG for evaluation of severity of nerve compression - At this time, the patient has elected for trial of cortisone injection - Night splinting to the bilateral carpal tunnel in the interim - Follow up in 4-6 weeks for reassessment INJECTION ADMINISTERED: * Patient was given an injection of the bilateral carpal tunnel at this visit, with: 0.5 cc Kenalog + 0.5 cc 1% Lidocaine plain at each location - Patient was given an injection of the bilateral thumb CMC joint with: 0.5 cc Kenalog (40 mg/ 1 cc concentration) + 0.5 cc 1% Lidocaine plain without epinephrine at each location - This is the patient's first injection by me - Patient was counseled that there may be some swelling, inflammation, and mild pain in the area of injection for the first few days following treatment, which may be controlled with anti-inflammatory pain medication as needed. Patient was counseled that it may take time to note full resolution of pain and symptoms following the injection, and occasionally a series of injections is necessary for full or lasting relief of pain and symptoms. Patient was counseled that some individuals may experience skin hypopigmentation changes or fat atrophy in the area of steroid application following injection. Patient was counseled that if they are diabetic, there may be temporary changes in their blood sugar levels which may require more frequent blood sugar changes or temporary adjustment in their insulin coverage. - Patient was instructed to notify a physician if they note any concerning signs of infection including but not limited to fever, warmth, erythema, or ascending cellulitis in the area of steroid injection. Author Kaden Maloney [facility] Authored March 28, 2025 11:50 am Patient complains of bilater al knee pain. We discussed possible cortisone injection for the left knee, right knee was replaced and would knee to follow with orthopedics for treatment of the right total knee. Patient has continued need for [place] 5-325 up to twice daily. An OARRS report was processed and reviewed and shows no violations, as well as an opioid risk assessment being completed without concerns. She denies any significant opioid related side effects and appears to be compliant with this medication. The patient was counseled and educated regarding the risks and benefits of half-way opioid use. She understands the associated risks with this medication and agrees that it provides reasonable benefit in regards to her pain control and level of function. This medication was refilled today. We will follow up with the patient in one month, sooner if needed. Anatomy of spine discussed in detail with patient in regards to patients condition. Overall, patient believes their pain is reasonably well controlled and she is in agreement with our treatment plan. Above note written by CARA White, [employer]. Edited and approved by Dr. Barry Valenzuela MD. Author Barry Valenzuela [facility] Authored May 01, 2025 1:0 5pm Patients primary complaint arnaldo bradley is severe, progressing right hip pain. She has a history of a surgery to the area and is established with orthopedics. Given her recent and severe progression of symptoms, I would like her to be evaluated by orthopedics again again. In the meantime, we will try to continue to manage her symptoms as best we can with her current medication regimen. Patient has continued need for [place] 5-325 up to twice daily. An OARRS report was processed and reviewed and shows no violations, as well as an opioid risk assessment being completed without concerns. She denies any significant opioid related side effects and appears to be compliant with this medication. The patient was counseled and educated regarding the risks and benefits of emt intermediate opioid use. She understands the associated risks with this medication and agrees that it provides reasonable benefit in regards to her pain control and level of function. This medication was refilled today. We will follow up with the patient in one month, sooner if needed. Anatomy of spine discussed in detail with patient in regards to patients condition. Above note written by Henry Salter CMA, [employer]. Edited and approved by Dr. Barry Valenzuela MD. Future Tests Future scheduled test information is unavailable Pending Tests Pending diagnostic test information is unavailable Future Visits Future appointment information is unavailable Referrals to Other Providers Referral information is unavailable Future Procedures Future procedure information is unavailable Future Medications Future medication information is unavailable Patient Instructions Patient instructions are unavailable
--- OUTSIDE RECORDS SUMMARY | 2025-05-08 08:49 | XMS_ITS | Clinical Summary ---
Author Organization [facility] Address [address] [place] [address] Phone Care Team Providers Care Morgue Technician Name Role Phone Unavailable Primary Care Provider Unavailabl e Social History Tobacco Use Types Packs/Day Years Used Date Smoking Tobacco: Never Assessed Comments Unknown Sex and Gender Information Value Date Recorded Sex Assigned at Not on file Legal Sex Female 12:53 AM EST Gender Identity Not on file Sexual Orientation Not on file Plan of Treatment Not on file
--- OUTSIDE RECORDS SUMMARY | 2025-05-08 08:49 | XMS_ITS | Clinical Summary ---
Author Organization [facility] Address [address] [place] [address] Care Team Providers Care Heliotherapist Name Role Phone Manjit Chucho Jose Manuel RAZA Primary Care Provider [phone] Allergies No known active allergies Medications POTASSIUM CHLORIDE (KLOR-CON M20 ORAL) Take 1 tablet by mouth once daily. Active furosemide (LASIX) 40 mg tablet Take 40 mg by mouth once daily. Active levothyroxine (SYNTHROID) 175 mcg tablet Take 175 mcg by mouth daily before breakfast. Active traZODone (DESYREL) 50 mg tablet Take 150 mg by mouth daily at bedtime. Active ipratropium-alb uterol (DUONEB) 0.5 mg-3 mg(2.5 mg base)/3 mL nebu Inhale 3 mL as instructed every 6 hours as needed. Active meloxicam (MOBIC) 15 mg tablet Take 15 mg by mouth once daily. Active MULTIVIT &MINERALS/ALICE US FUM (MULTI VITAMIN ORAL) Take 1 tablet by mouth once daily. Active calcium carbonate-mag hydroxid 1,000-200 mg chew Take 1 tablet by mouth once daily. Active docusate sodium (COLACE) 100 mg capsule Take 100 mg by mouth twice daily. Active ALPRAZolam (XANAX) 0.5 mg tablet Take 0.5 mg by mouth at bedtime as needed. Patient takes 1/2 tablet in the morning and a whole tablet in the evening Active SYMBICORT 160-4.5 mcg/actuation inhaler 8 Active montelukast (SINGULAIR) 10 mg tablet 8 Active alendronate (FOSAMAX) 70 mg tablet Take 70 mg by mouth once each week. Active albuterol HFA (PROAIR HFA) 90 mcg/actuation inhaler Inhale 2 Puffs as instructed. Active riboflavin, vitamin B2, (VITAMIN B-2 ORAL) Take by mouth. Activ e ascorbic acid (VITAMIN C ORAL) Take by mouth. Activ e roflumilast (DALIRESP) 250 mcg tab Take 250 mcg by mouth once daily. 30 tablet 8 Active PULMICORT FLEXHALER 180 mcg/actuation aepb Inhale 1 Puff as instructed twice daily. 1 Inhaler 3 8 Active Active Problems Problem Noted Date Diagnosed Date Acquired hypothyroidism 10/16/2015 Trochanteric bursitis of right hip 10/16/2015 Status post total hip replacement, right 016 Status post knee surgery 10/16/2015 Simple chronic bronchitis 10/16/2015 Anxiety 10/16/2015 Obesity 10/16/2015 Social History Tobacco Use Types Packs/Day Years Used Date Smoking Tobacco: Former Cigarettes 0.5 55 1 - 06/27/2013 Smokeless Tobacco: Never Comments:Started at age 13 Alcohol Use Standard Drinks/Week Comments Yes 0 (1 standard drink = 0.6 oz pur e alcohol) occasionally Area Deprivation Index Answer Date Duncan rded National Score (1-100), lower number is lower ri sk Not on file 09/04/2020 State Score (1-10), lower number is lower risk N ot on file 09/04/2020 Data from: https://www.neighborhoodatlas.medicine.[facility].edu/. Last address used for calculation Not on file 09/04/2020 Comments No Sex and Gender Information Value Date Recorded Sex Assigned at Not on file Legal Sex Female 12:27 PM EST Gender Identity Not on file Sexual Orientation Not on file Last Filed Vital Signs Vital Sign Reading Time Taken Comments Blood Pressure 144/71 04/11/2018 9:27 AM EDT Pulse 64 04/11/2018 9:27 AM EDT Temperature - - Respiratory Rate 12 04/11/2018 9:27 AM EDT Oxygen Saturation 99% 04/11/2018 9:27 AM EDT RA Inhaled Oxygen Concentration - - Weight 96.5 kg (212 lb 12.8 oz) 04/11/2018 9:27 AM EDT Height 162.6 cm (5' 4 ) 04/11/2018 9:27 AM EDT Body Mass Index 36.53 04/11/2018 9:27 AM EDT Plan of Treatment Health Maintenance Due Date Last Done Comments Anxiety Screening 1963 Depression Screening 1965 Hepatitis C Screening 1963 DTaP,Tdap,Td Vaccine (1 - Tdap) 1966 Diabetes Screening 01/17/1992 Pneumococcal Vaccine: 50+ (1 of 1 - PCV) 1997 Shingrix Vaccine (1 of 2) 1997 Bone Density Screening 01/17/2012 RSV Vaccine (1 - 1-dose 75+ series) 2022 Advance Directive Discussion 09/27/2024 Influenza Vaccine (#1) 2025 Insurance INSURANCE MEDICARE Care Teams Heliotherapist Relationship Specialty Start Date End Date Chucho Saravia DO PCP - General Internal Medicine 09/03/15
--- OUTSIDE RECORDS SUMMARY | 2025-05-08 08:49 | XMS_ITS | Encounter Summary ---
Author Organization [facility] Address [address] [place] [address] Care Team Providers Care Form Layer Name Role Phone Chucho Saravia DO Primary Care Provider [phone] Encounter Details Date Type Department Care Team (Late Contact Info) Description 06/21/2023 Abstract [facility] [address] [facility] [address] [place] [phone] Mina Morel DPM [address] [facility] [address] [place] [address] Social History Tobacco Use Types Packs/Day Years Used Date Smoking Tobacco: Former Cigarettes Smokeless Tobacco: Never Alcohol Use Standard Drinks/Week Comments Yes 0 (1 standard drink = 0.6 oz pur e alcohol) Comments Unknown Sex and Gender Information Value Date Recorded Sex Assigned at Not on file Legal Sex Female 8:13 PM EDT Gender Identity Not on file Sexual Orientation Not on file documented as of this encounter Plan of Treatment Upcoming Encounters Date Type Department Care Team (Late st Contact Info) Description 06/18/2025 11:30 AM EDT Procedure Visit [facility] [address] [place] [phone] Lauro Todd DPM [address] [facility] 5 [place] [address] documented as of this encounter Visit Diagnoses Not on filedocumented in this encounter Care Teams Form Layer Relationship Specialty Start Date End Date Chucho Saravia DO [address] [place] [address] PCP - General Internal Medicine 03/17/23 documented as of this encounter
--- OUTSIDE RECORDS SUMMARY | 2025-05-08 08:49 | XMS_ITS | Clinical Summary ---
Author Organization [facility] Address [address] [place] [address] Care Team Providers Care Automotive Service Technician Name Role Phone Unavailable Primary Care Provider Unavailabl e Social History Tobacco Use Types Packs/Day Years Used Date Smoking Tobacco: Never Assessed [place] Safety & Environment Answer Date Rec orded Fear of Current or Ex-Partner Not on file Emotionally Abused Not on file 11/18/2023 Physically Abused Not on file 11/18/2023 Sexually Abused Not on file 11/18/2023 Physically or Sexually Abused Not on file Comments Unknown Sex and Gender Information Value Date Recorded Sex Assigned at Not on file Legal Sex Female 11:05 PM EDT Gender Identity Not on file Sexual Orientation Not on file Plan of Treatment Health Maintenance Due Date Last Done Comments Medicare Annual Wellness (AWV) 1945 Depression Screening 1959 Pneumococcal Vaccine: 50+ Ye ars (1 of 2 - PCV) 1966 Adult Tetanus 1969 Zoster Vaccines (1 of 2) 1997 Fall Risk Screening 01/17/2012 COVID-19 Vaccine ( - 2023-2 5 season) 2024 Influenza Vaccine (#1) 2025 HIB Vaccines Aged Out No longer eligi ble based on patient's age to complete this topic HPV Vaccines Aged Out No longer eligi ble based on patient's age to complete this topic IPV Vaccines Aged Out No longer eligi ble based on patient's age to complete this topic Meningococcal B Vaccine Aged Out No l onger eligible based on patient's age to complete this topic Meningococcal Vaccine Aged Out No blane shawnee eligible based on patient's age to complete this topic Rotavirus Vaccines Aged Out No longer eligible based on patient's age to complete this topic Insurance MEDICARE Member Subscriber Plan / Payer (Ef fective 2011-Present) Name:HeribertoTiana Member ID:[id number] Relation to Subscriber:Self Name:Tiana Louis Subscriber ID:[id number] Payer ID:[id number] Group ID:Not on file Type:Medicare Address: [id number]
--- OUTSIDE RECORDS SUMMARY | 2025-05-08 08:49 | XMS_ITS | Encounter Summary ---
Author Organization [facility] Address [address] [place] [address] Care Team Providers Care Campus Manager Name Role Phone Chucho Saravia DO Primary Care Provider [phone] Encounter Details Date Type Department Care Team (Late Contact Info) Description 03/16/2023 Abstract [facility] [address] [facility] [address] [place] [phone] Mina Morel DPM [address] [facility] [address] [place] [address] Social History Tobacco Use Types Packs/Day Years Used Date Smoking Tobacco: Never Assessed Tobacco Cessation:Counseling Given: Not Answered Comments Unknown Sex and Gender Information Value Date Recorded Sex Assigned at Not on file Legal Sex Female 8:13 PM EDT Gender Identity Not on file Sexual Orientation Not on file documented as of this encounter Plan of Treatment Upcoming Encounters Date Type Department Care Team (Late st Contact Info) Description 06/18/2025 11:30 AM EDT Procedure Visit [facility] [address] [place] [phone] Lauro Todd DPM [address] [facility] 5 [place] [address] documented as of this encounter Visit Diagnoses Not on filedocumented in this encounter Care Teams Campus Manager Relationship Specialty Start Date End Date Chucho Saravia DO [address] [place] [address] PCP - General Internal Medicine 03/17/23 documented as of this encounter
--- OUTSIDE RECORDS SUMMARY | 2025-05-08 08:49 | XMS_ITS | Clinical Summary ---
Author Organization [facility] Address [address] [place] [address] Care Team Providers Care Continuous Improvement Engineer Name Role Phone Chucho Saravia Primary Care Provider [phone] Allergies Active Allergy Reactions Criticality Noted Date Comments Molds & Smuts Unknown 03/16/2023 Wound Dressing Adhesive Rash Low 03/16/2023 Medications DULoxetine (Cymbalta) [address] capsule Take 20 mg by mouth in the morning and 20 mg before bedtime. Do not crush or chew. . Active alendronate (Fosamax) 70 MG/75ML solution Take 70 mg by mouth every 7 (seven) days. Take in the morning with a full glass of water, on an empty stomach, and do not take anything else by mouth or lie down for the next 30 min. Active ipratropium (Atrovent) 0.02 % nebulizer solution Take by nebulization every 6 (six) hours. Active albuterol HFA 90 mcg/act inhaler Inhale 2 puffs every 4 (four) hours if needed for wheezing. Active ALPRAZolam (Niravam) 0.5 MG disintegrating tablet Take 0.5 mg by mouth as needed at bedtime for anxiety. Active furosemide (Lasix) 80 MG tablet Take by mouth. Ac tive potassium chloride (Klor-Con) 20 MEQ packet Take 20 mEq by mouth in the morning and 20 mEq before bedtime. Active diclofenac (Voltaren) 75 MG EC tablet 09/10/20 Active Fluticasone-Salmet rae 250-50 MCG/ACT aerosol powder Inhale 1 puff in the morning and 1 puff before bedtime. 09/01/20 23 Active HYDROcodone-acetam inophen ([place]) 5-325 MG tablet 07/14/20 23 Active levothyroxine (Synthroid, Levoxyl) 150 MCG tablet Take 150 mcg by mouth in the morning. 08/18/20 23 Active azithromycin (Zithromax) 250 MG tablet TAKE DIRECTED FOR 5 DAYS 12/13/19 24 Active doxycycline (Vibramycin) 100 MG capsule Take 100 mg by mouth in the morning and 100 mg before bedtime. 10/04/19 24 Active methylPREDNISolone (Medrol Dospak) 4 MG tablets USE DIRECTED 11/03/19 24 Active predniSONE (Deltasone) 20 MG tablet TAKE 1 TABLET BY MOUTH THREE TIMES DAILY FOR 3 DAYS, THEN TAKE 1 TAB TWICE DAILY FOR 3 DAYS, THEN TAKE 1 TAB ONCE DAILY FOR 3 DAYS DIRECTED WITH FOOD 12/13/19 24 Active traZODone (Desyrel) 50 MG tablet TAKE 2 TABLETS BY MOUTH ONCE DAILY AT BEDTIME Active Active Problems Problem Noted Date Diagnosed Date Posterior vitreous detachment of left eye 2023 Idiopathic peripheral neuropathy 03/17/2023 Pain in both feet 03/17/2023 Onychomycosis 03/16/2023 Encounters Date Type Department Care Team Description 03/19/2025 11:30 AM EDT Office Visit [facility] [address] [place] [address] Lauro Todd DPM Other polyneuropathy (Primary Dx); Pain due to onychomycosis of toenails of both feet 03/19/2025 Bamboo flowsheet [facility] [address] [place] [address] Lauro Todd DPM from Last 3 Months Social History Tobacco Use Types Packs/Day Years Used Date Smoking Tobacco: Former Cigarettes Smokeless Tobacco: Never Tobacco Cessation:Counseling Given: Yes Alcohol Use Standard Drinks/Week Comments Yes 0 (1 standard drink = 0.6 oz pur e alcohol) Comments Unknown Sex and Gender Information Value Date Recorded Sex Assigned at Not on file Legal Sex Female 8:13 PM EDT Gender Identity Not on file Sexual Orientation Not on file Last Filed Vital Signs Vital Sign Reading Time Taken Comments Blood Pressure 127/76 02/05/2022 12:00 PM EDT Pulse - - Temperature - - Respiratory Rate 18 03/19/2025 11:37 AM EDT Oxygen Saturation - - Inhaled Oxygen Concentration - - Weight 81.6 kg (180 lb) 03/19/2025 11:37 AM EDT Height 165.1 cm (5' 5 ) 03/19/2025 11:37 AM EDT Body Mass Index 29.95 03/19/2025 11:37 AM EDT Plan of Treatment Upcoming Encounters Date Type Department Care Team (Late st Contact Info) Description 06/18/2025 11:30 AM EDT Procedure Visit [facility] [address] [place] [phone] Lauro Todd DPM [address] [address] Health Maintenance Due Date Last Done Comments Influenza Vaccine (#1) 2025 4, 06/22/2023, 06/16/2022, Additional history exists Pneumococcal Vaccine: 65+ Years Completed 4, 02/10/2017 Insurance MEDICARE [employer] Care Teams Continuous Improvement Engineer Relationship Specialty Start Date End Date Chucho Saravia DO [address] [place] [phone] PCP - General Internal Medicine 03/17/23
--- OUTSIDE RECORDS SUMMARY | 2025-05-08 08:49 | XMS_ITS | Clinical Summary ---
Author Organization [facility] Address [address] [place] [address] Care Team Providers Care Injection Molding Machine Operator Name Role Phone Chucho Saravia DO Primary Care Provider [phone] Allergies No known active allergies Medications furOSEmide 40 MG Tab 08/10/2015 Active levothyroxine 175 MCG Tab 08/10/2015 Active ALPRAZolam 0.5 MG Tab 08/17/2015 Active traZODone 50 MG Tab 08/10/2015 Active baclofen 20 MG Tab 08/10/2015 Active meloxicam 15 MG Tab 08/25/2015 Active Potassium Chloride Gertrudis CR (KLOR-CON M20 PO) take by mouth. Active Fluticasone-Salm eterol (ADVAIR DISKUS IN) take by inhalation. Active Albuterol Sulfate (PROAIR HFA IN) take by inhalation. Active Hydrocodone-Acet aminophen (VICODIN PO) take by mouth as needed. Active Active Problems Problem Noted Date Diagnosed Date Arthralgia of right hip 09/03/2015 Social History Tobacco Use Types Packs/Day Years Used Date Smoking Tobacco: Former Alcohol Use Standard Drinks/Week Comments Yes 0 (1 standard drink = 0.6 oz pur e alcohol) Comments Unknown Sex and Gender Information Value Date Recorded Sex Assigned at Not on file Legal Sex Female 11:17 AM EST Gender Identity Not on file Sexual Orientation Not on file Last Filed Vital Signs Vital Sign Reading Time Taken Comments Blood Pressure 146/88 09/03/2015 10:13 AM EST Pulse 68 09/03/2015 10:13 AM EST Temperature - - Respiratory Rate - - Oxygen Saturation - - Inhaled Oxygen Concentration - - Weight - - Height - - Body Mass Index - - Plan of Treatment Health Maintenance Due Date Last Done Comments DEXA SCAN DISCUSSION 1945 HEPATITIS C VIRUS SCREENING 1945 TETANUS 1947 TDAP (ADULT) 1966 CERVICAL CANCER SCREENING DISCUSSION 01/17/1968 MAMMOGRAM SCREENING DISCUSSION 1987 COLORECTAL CANCER SCREENING DISCUSSION 01/17/1992 PNEUMOCOCCAL VACCINE SERIES (1 of 1 - PCV) 1997 ZOSTER (SHINGLES) VACCINE (1 of 2) 1997 RSV VACCINE (1 - 1-dose 75+ series) 2022 COVID-19 VACCINE (1 - 2023-2 5 season) 2024 INFLUENZA VACCINE (#1) 2025 HEP B VACCINE Aged Out No longer elig ible based on patient's age to complete this topic Insurance MEDICARE A AND B GENERIC PLAN Care Teams Injection Molding Machine Operator Relationship Specialty Start Date End Date Chucho Saravia DO PCP - General Internal Medicine 09/03/15
[2025-05-08 10:34] LABS: Anion Gap 7.7; Blood Urea Nitrogen 14.0 mg/dL (7.0-18.0); Calcium 9.5 mg/dL (8.5-10.1); Carbon Dioxide 27.9 mmol/L (21.0-32.0); Chloride 109 mmol/L (98-107); Estimated GFR (African America >60 (>=60 mL/min/1.73m^2); Estimated GFR (Non-African Ame >60 (>=60 mL/min/1.73m^2); Glucose 94 mg/dL (74-106); Potassium 3.6 mmol/L (3.5-5.1); Sodium 141 mmol/L (136-145)
== END 2025-05-08 08:45 | disposition home or self-care (01) ==
LOC: LAB 08:45
PROVIDERS: PCP Internal Medicine; Visit Provider Internal Medicine
DX: M81.0 Age-related osteoporosis without current pathological fracture (principal)
CPT/HCPCS: 36415; 80048; 82306

== ENCOUNTER 2025-05-09 07:46 | Outpatient (RCR) | payer MEDICARE, OTHER, SELFPAY ==
[2025-05-09 10:22] VITALS: BP 134/75; PULSE 64; TEMP 36.5; O2SAT 95
[2025-05-09] MEDS: DENOSUMAB 60 MG/ML SYRINGE SUBQ (11:00)
[2025-05-09 11:02] VITALS: BP 123/77; PULSE 60; TEMP 36.8; O2SAT 95
== END 2025-05-27 23:59 | disposition home or self-care (01) ==
LOC: INF 07:46
PROVIDERS: PCP Internal Medicine; Visit Provider Internal Medicine
DX: M81.0 Age-related osteoporosis without current pathological fracture (principal)
CPT/HCPCS: 96372; J0897

== ENCOUNTER 2025-06-13 11:08 | Emergency (ER) | payer MEDICARE, OTHER, SELFPAY ==
[2025-06-13 11:15] VITALS: BP 221/120; PULSE 70; TEMP 37.3; O2SAT 97; BMI 50.5
--- OUTSIDE RECORDS SUMMARY | 2025-06-13 11:18 | XMS_ITS | CCD ---
Author Organization [facility] Care Team Providers Care Link Trainer Maintenance Man Name Role Phone LEIF, RENATA Unavailable Unavailable CHUCHO SARAVIA Unavailable Unavailable LEIF, RENATA Unavailable Unavailable LEIF, RENATA Unavailable Unavailable CIRA BENDER Unavailable Unavailable CHUCHO SARAVIA Unavailable Unavailable Barry Valenzuela Unavailable Benigno Kennedy Unavailable DO Chucho Saravia Primary Care Provider [phone] DO Chucho Saravia Referring Provider Self, Referral Attending Provider Unavailable DO Cuhcho Saravia Primary Care Provider DO Chucho Saravia Referring Provider [phone] Self, Referral Attending Provider Unavailable MD Benigno Kennedy Attending Provider [phone] DO Chucho Saravia Primary Care Provider MD Barry Valenzuela Attending Provider Chucho Saravia Unavailable Radha Kennedy Unavailable REQUEST, NONE LISTED Admitting Unavaila ble REQUEST, DR LYN LISTED Attending Unavaila ble ALEXANDER, DR JACOBS Primary Care Unavailable REQUEST, NONE LISTED Consulting Unavaila ble BALL, DR JACOBS [...] Unavailable BALL, DR JACOBS Primary Care Unavailable KELLEY .MILLER Admitting Unavailable KELLEY .MILLER Attending Unavailable ANGEL ., DORIE Consulting Unavailable BALL, DR JACOBS Admitting Unavailable BALL, DR JACOBS Attending Unavailable BALL, DR JACOBS Primary Care Unavailable BALL, DR JACOBS Admitting Unavailable BALL, DR JACOBS Attending Unavailable BALL, DR JACOBS Primary Care Unavailable BALL, DR JACOBS Consulting Unavailable Coy Cassidy II Unavailable Barry Patel Unavailable Ball, DO Chucho Primary Care Provider MD Coy Cassidy II Attending Provider MD Barry Patel Attending Provider Ball, DO Chucho Primary Care Provider Ball, DO Chucho Primary Care Provider MD Barry Patel Attending Provider Ball, DO Chucho Referring Provider Self, Referral Attending Provider Unavailable Ball, DO Chucho Primary Care Provider MD Barry Patel Attending Provider Ball, DO Chucho Primary Care Provider MD Coy Cassidy II Attending Provider Ball, DO Chucho Primary Care Provider MD Coy Cassidy II Attending Provider Ball, DO Chucho Primary Care Provider MD Coy Cassidy II Attending Provider Ball, DO Chucho Primary Care Provider Ball, DO Chucho Attending Provider Ball, DO Chucho Primary Care Provider Ball, DO Chucho Attending Provider Ball DO, Chucho Primary Care Provider Ball DO, Chucho Attending Provider Barry Valenzuela MD Attending Provider Ball DO, Chucho Primary Care Provider Barry Valenzuela MD Attending Provider Ball DO, Chucho Primary Care Provider Barry Valenzuela MD Attending Provider Barry Patel MD Attending Provider Ball DO, Chucho Primary Care Provider Ball DO, Chucho E Primary Care Provider LAURO TODD Attending Unavailable Ball DO, Chucho Primary Care Provider Ball DO, Chucho Attending Provider Barry Valenzuela MD Attending Provider Ball DO, Chucho Primary Care Provider Ball DO, Chucho Attending Provider Ball DO, Chucho Primary Care Provider Nicolas SUN, Barry Attending Provider [phone] Ball DO, Chucho Attending Provider Apryl Mclean MD Attending Provider [phone] Ball DO, Chucho Primary Care Provider Barry Valenzuela MD Attending Provider Mouna Rees APRN Attending Provider Eren SUN, Coy Mcbride Attending Provider Ball, Chucho Primary Care Unavailable Ball, Chucho Attending Unavailable Ball, Chucho Admitting Unavailable Felter, Barry Attending Unavailable Ball, Chucho Primary Care Unavailable Felter, Barry Admitting Unavailable Ball, Chucho Primary Care Unavailable Olexa, Barry Admitting Unavailable Olexa, Barry Attending Unavailable Coy Cassidy II Admitting Unavailabl e Eren HERNANDEZ, Coy Mcbride Attending Unavailabl e Ball, Chucho Primary Care Unavailable Ball DO, Chucho Primary Care Provider Ball DO, Chucho Attending Provider Barry Valenzuela MD Attending Provider Allergies Allergy Classification Reported Allergen(s) Allergy Type Date of Onset Reaction(s) Facility (20 sources) Silk adhesive tape Propensity to adverse reactions rash [facility] Other (20 sources) Adhesive Tape; Translations: [Adhesive tape] Allergy to substance 1 Rash;blisterin g [facility] Comment on above: May use paper tape (10 sources) Adhesive Tape Drug allergy Unknown [facility] Other (20 sources) zoledronic acid Drug Allergy 4 Unknown, Unknown Reaction [facility] (3 sources) Allergies Reconciled Propensity to adverse reactions Unknown [facility] Other (3 sources) patient allergy list reviewed by nurse or physicia Propensity to adverse reactions 3 Comment:Done [facility] Other (20 sources) Mannitol; Translations: [mannitol] Drug Allergy 4 Unknown Reaction [facility] (20 sources) water for injection,steri le; Translations: [water for injection,steri le] Allergy to substance 4 Unknown Reaction [facility] (3 sources) Mold Extract Drug Allergy 3 Unknown [facility] (3 sources) Wound Dressing Adhesive Propensity to adverse reactions 3 Rash [facility] (1 source) zoledronic acid Drug Allergy 5 [facility] Repository Medications Current Medications Medication Drug Class(es) Dates Sig (Normalized) Sig (Original) acetaminophen 325 mg / HYDROcodone bitartrate 5 mg oral tablet (20 sources) Opioid Agonist Start: 05-31-2025 take 1 tablet by mouth twice daily as needed for pain Hydrocodone-Aceta minophen 5-325 mg tablet Active 1 TAB PO Twice daily as needed for pain 60 May 31, 2025 Complies with drug therapy Start: 08-21-2024 End: 05-31-2025 take 1 tablet by mouth twice daily as needed for pain Hydrocodone-Acetaminophen 5-325 mg table t Discontinued 1 TAB PO Twice daily as needed for pain 60 April 30, 2025 May 31, 2025 11:26am Start: 08-02-2024 End: 08-02-2024 take 1 tablet by mouth twice daily as needed for pain Hydrocodone-Acetaminophen 5-325 mg table t Discontinued 1 TAB PO Twice daily as needed for pain 60 August 02, 2024 August 02, 2024 1:22pm Start: 11-25-2023 End: 08-21-2024 take 1 tablet by mouth twice daily as needed for pain Hydrocodone-Acetaminophen 5-325 mg table t Discontinued 1 TAB PO Twice daily as needed for pain 60 July 05, 2024 August 02, 2024 11:38am Start: 07-14-2023 HYDROcodone-ac etaminophen ([place]) 5-325 MG tablet 07/14/2023 Active Start: 07-06-2023 take 1 tablet by raven [...] 1 tablet by mouth every six hours as needed for pain Hydrocodone-Acetaminophen 5-325 mg Table t Discontinued 1 TAB PO Q6H as needed for Pain February 12, 2023 12:00am December 13, 2023 10:14am Start: 08-14-2021 take 1 tablet by raven th every six hours Start: 10-28-2020 End: 11-12-2020 take 1 tablet by mouth twice daily as needed for pain Hydrocodone-Acetaminophen 5-325 mg Table t Discontinued 1 TAB PO Twice daily as needed for Pain October 28, 2020 1:00am November 12, 2020 1:35pm Start: 10-20-2018 End: 10-27-2018 take 2 tablets by mouth every six hours as needed for pain Hydrocodone-Acetaminophen 5-325 mg table t Discontinued 2 TAB PO Q6H as needed for pain 23 04October 20, 2018 October 26, 2018 1:00am October 27, 2018 1:02am Start: 04-08-2018 End: 05-25-2018 take 1 tablet by mouth every four to six hours as needed for pain Hydrocodone-Acetaminophen ([place]) 5-325 mg Tablet Discontinued 1 TAB PO EVERY 4-6 HOURS as needed for Pain April 08, 2018 May 25, 2018 11:35am acetaminophen 325 mg / oxyCODONE hydrochloride 5 mg oral tablet (20 sources) Opioid Agonist Start: 02-23-2023 take 1 tablet by mouth every four hours as needed for pain Percocet 5-325 MG 1 tablet as needed for pain Orally up to every 4 hrs for 5 days GABE: [id number] January, Active Start: 05-27-2021 take 1 tablet [...] Discontinued 1 TAB PO EVERY 4-6 HOURS as needed for pain 14 April 09, 2020 October 28, 2020 9:35am Start: 01-17-2019 End: 07-17-2019 take 1 tablet by mouth every six hours as needed for pain Oxycodone-Acetaminophen 5-325 mg tablet Discontinued 1 TAB PO Q6H as needed for pain 23 04January 17, 2019 July 17, 2019 3:12pm Start: 01-06-2019 End: 01-13-2019 take 1 tablet by mouth every six hours as needed for pain Oxycodone-Acetaminophen (Percocet) 5-325 mg tablet Discontinued 1 TAB PO Q6H as needed for pain 23 04January 06, 2019 January 12, 2019 12:00am January 13, 2019 12:02am Start: 08-03-2018 End: 10-20-2018 take 1 tablet by mouth every six hours as needed for pain Oxycodone-Acetaminophen 5-325 mg tablet Discontinued 1 - 2 TAB PO Q6H as needed for Pain August 03, 2018 1:00am October 20, 2018 9:44am Start: 07-10-2018 End: 07-13-2018 take 1 tablet by mouth every six hours as needed for pain Oxycodone-Acetaminophen (Percocet) 5-325 mg tablet Discontinued 1 TAB PO Q6H as needed for pain 08 29July 10, 2018 July 12, 2018 12:00am July 13, 2018 12:02am Start: 06-07-2018 End: 07-10-2018 take 1 tablet by mouth every four to six hours as needed for pain and pain, then take 2 tablets by mouth every four to six hours as needed for pain and pain Oxycodone-Acetaminophen (Percocet) 5-325 mg tablet Discontinued 1 TAB PO EVERY 4-6 HOURS as needed for pain June 07, 2018 July 10, 2018 9:37am 1 OR 2 TABS PO Q 4 TO 6 HRS PRN PAIN Start: 06-25-2017 End: 04-07-2018 Oxycodone-Acetaminophen 5-32 5 mg Tablet Discontinued June 25, 2017 12:00am April 07, 2018 11:40pm albuterol 0.83 mg/ml inhalat ion solution (20 sources) beta2-Adrenergic Agonist Start: 05-16-2025 Start: 06-28-2024 End: 05-16-2025 Albuterol Sulfate 2.5 mg /3 mL (0.083 %) solution for nebulization Discontinued 0 .ROUTE .COMPLEX 360 2025 4:04pm May 16, 2025 5:45pm USE 1 VIAL IN NEBULIZER EVERY 6 HOURS NEEDED FOR SHORTNESS OF BREATH FOR WHEEZING DX: J41.0 - Chronic bronchitis, simple Start: 12-13-2023 End: 12-27-2024 take 1 puff(s) by inhalation every four hours as needed for wheezing Start: 02-16-2023 take 2 puff(s) by in [...] January, Active Start: 02-16-2023 Start: 11-20-2022 End: 06-28-2024 take 2.5 mg by inhalation every six hours Albuterol Sulfate 2.5 mg /3 mL (0.083 %) solution for nebulization Discontinued 2.5 MG INHALATION Every 6 hours November 11, 2023 1:00am November 11, 2023 2:42pm Start: 11-20-2022 Albuterol Sulf ate (2.5 MG/3ML) 0.083% 3 mL as needed Inhalation every 6 hrs Oct, Active Start: 11-20-2022 Start: 04-07-2018 End: 05-25-2018 Albuterol Sulfate (Proair Hf a) 90 mcg/actuation Hfa Aerosol Inhaler Discontinued 2 UNIT INHALATION Daily as needed for asthma April 07, 2018 12:00am May 25, 2018 11:35am 2 unit inhaled Start: 03-21-2018 End: 02-19-2021 take 1 puff(s) by inhalation every four to six hours as needed for wheezing Albuterol Sulfate (Proair Hfa) 90 mcg/actuation Hfa Aerosol Inhaler Discontinued 2 PUFF INHALATION EVERY 4-6 HOURS as needed for Shortness Of Breath Or Wheezing March 21, 2018 12:00am February 19, 2021 4:15pm take 2 puff(s) by in halation every four hours for wheezing albuterol HFA 90 mcg/act inhaler Inhale 2 puffs every 4 (four) hours if needed for wheezing. Active ALPRAZolam 0.5 mg oral tablet (20 sources) Benzodiazepine Start: 05-29-2024 End: 11-27-2024 take 0.5 tablet by mouth once in the morning, then take 1 tablet by mouth once at bedtime Start: 12-09-2023 End: 05-29-2024 take 0.5 tablet by mouth twice daily in the morning, then take 1 tablet by mouth once at bedtime Alprazolam 0.5 mg tablet Discontinued 0.5 MG PO Twice daily 45 December 09, 2023 1:08pm May 29, 2024 8:44am 1/2 tab PO q AM and 1 tab PO q HS Start: 08-11-2023 ALPRAZolam 0.5 MG TAKE 1/2 (ONE-HALF) TABLET BY MOUTH ONCE DAILY AND 1 TAB AT BEDTIME FOR 30 DAYS for 30 Jul, Active Start: 03-05-2021 End: 02-12-2023 Alprazolam 0.5 mg tablet Discontinued March 05, 2021 12:00am February 12, 2023 10:13am Start: 03-05-2021 End: 02-12-2023 Alprazolam Discontinued TABL ET March 05, 2021 12:00am February 12, 2023 10:13am Start: 02-19-2021 End: 02-12-2023 take 1 tablet by mouth once daily at bedtime Alprazolam 0.5 mg tablet Discontinued 0.5 MG PO Daily at bedtime February 19, 2021 12:00am February 12, 2023 10:13am Start: 07-17-2019 End: 10-28-2020 take 0.25 mg by mouth once daily Alprazolam 0.5 mg tablet Discontinued 0.25 MG PO Daily July 17, 2019 12:00am October 28, 2020 9:32am Start: 04-07-2018 End: 12-09-2023 take 0.25 mg by mouth twice daily at bedtime Alprazolam 0.5 mg tablet Discontinued 0.25 MG PO Twice daily November 09, 2023 2:16pm December 09, 2023 1:10pm 1pm and HS Start: 04-07-2018 End: 12-09-2023 take 0.25 mg by mouth twice daily at bedtime Alprazolam Discontinued 0.25 MG PO Twice daily November 09, 2023 1:16pm December 09, 2023 12:10pm 1pm and HS Start: 06-25-2017 End: 04-07-2018 take 0.25 mg by mouth once daily Alprazolam 0.5 mg tablet Discontinued 0.25 MG PO Daily June 25, 2017 12:00am April 07, 2018 11:40pm Start: 06-25-2017 End: 10-28-2020 take 0.25 mg by mouth once daily Alprazolam Discontinued 0.25 MG PO Daily July 16, 2019 11:00pm October 28, 2020 8:32am ALPRAZolam (Ana vam) 0.5 MG disintegrating tablet Take 0.5 mg by mouth as needed at bedtime for anxiety. Active cephalexin 500 mg oral capsule (20 sources) Cephalosporin Antibacterial Start: 02-23-2023 take 1 capsule by mouth every eight hours Cephalexin 500 MG 1 capsule Orally every 8 hrs for 2 days January, Active Start: 03-07-2021 End: 02-12-2023 take 1 capsule by mouth three times daily Cephalexin 500 mg capsule Discontinued 500 MG PO Three times daily March 07, 2021 12:00am February 12, 2023 10:18am Start: 11-12-2020 End: 02-19-2021 take 1 capsule by mouth three times daily Cephalexin 500 mg capsule Discontinued 500 MG PO Three times daily November 12, 2020 1:00am February 19, 2021 4:23pm Start: 01-06-2019 End: 01-11-2019 take 1 capsule by mouth every eight hours Cephalexin 500 mg capsule Discontinued 500 MG PO Q8H 15 January 06, 2019 12:00am January 10, 2019 12:00am January 11, 2019 12:05am 1 ml denosumab 60 mg/ml prefilled syringe (20 sources) RANK Ligand Inhibitor Start: 10-28-2020 End: 02-01-2024 diclofenac sodium 0.01 mg/mg topical gel (20 sources) Nonsteroidal Anti-inflammatory Drug Start: 04-16-2025 Start: 11-13-2024 End: 04-16-2025 take 1 tablet by mouth once Diclofenac Sodium 75 mg tablet,delayed release (DR/EC) Discontinued 75 MG PO Once 90 90 November 13, 2024 11:34am April 16, 2025 11:31am Start: 09-10-2023 End: 11-13-2024 take 1 tablet by mouth twice daily Diclofenac Sodium 75 mg tablet,delayed release (DR/EC) Discontinued 75 MG PO Twice daily 180 90 June 26, 2024 11:21am June 26, 2024 8:56pm Start: 02-12-2023 End: 12-21-2023 take 3 tablets by mouth twice daily at mealtime as needed for pain Diclofenac Sodium 25 mg tablet,delayed release (DR/EC) Discontinued 75 MG PO Twice daily with meals as needed for pain 180 90 December 21, 2023 11:15am December 21, 2023 11:28am Start: 02-12-2023 End: 12-21-2023 take 75 mg by mouth twice daily at mealtime Diclofenac Sodium Discontinued 75 MG PO Twice daily with meals 180 90 December 21, 2023 10:15am December 21, 2023 10:28am Start: 03-07-2021 End: 02-12-2023 take 2 tablets by mouth twice daily at mealtime as needed for pain Diclofenac Sodium 25 mg Tablet,Delayed Release (Dr/Ec) Discontinued 50 MG PO Twice daily with meals as needed for pain March 07, 2021 12:00am February 12, 2023 10:22am Start: 03-07-2021 End: 02-12-2023 take 50 mg by mouth twice daily at mealtime Diclofenac Sodium Discontinued 50 MG PO Twice daily with meals March 06, 2021 11:00pm February 12, 2023 9:22am Start: 05-25-2018 End: 03-07-2021 Diclofenac Sodium 75 mg tablet,delayed release (DR/EC) Discontinued 75 MG PO Twice daily May 25, 2018 12:00am March 07, 2021 8:48am Instructed to stop 5-7 days preop escitalopram 10 mg oral tablet (20 sources) Serotonin Reuptake Inhibitor Start: 12-23-2024 take 1 tablet by mouth once daily Start: 06-26-2024 End: 12-23-2024 take 1 tablet by mouth once daily Escitalopram Oxalate 10 mg tablet Discontinued 10 MG PO Daily June 26, 2024 12:00am December 23, 2024 3:44pm 60 actuat fluticasone propionate 0.25 mg/actuat / salmeterol 0.05 mg/actuat dry powder inhaler (20 sources) Corticosteroid, beta2-Adrenergic Agonist Start: 05-15-2025 take 1 puff(s) by inhalation twice daily Start: 05-09-2024 End: 05-15-2025 take 1 puff(s) by inhalation twice daily Fluticasone Propion-Salmeterol 250-50 mcg/dose blister with device Discontinued 0 .ROUTE .COMPLEX 60 May 09, 2024 9:09pm May 15, 2025 1:31pm INHALE 1 PUFF TWICE DAILY Start: 05-09-2024 take 1 puff(s) by in halation twice daily Fluticasone Propion-Salmeterol 250-50 mcg/dose blister with device Active 0 .ROUTE .COMPLEX 60 May 09, 2024 9:09pm INHALE 1 PUFF TWICE DAILY Complies with drug therapy Start: 05-09-2024 take 1 puff(s) by in halation twice daily Start: 05-09-2024 take 1 puff(s) by in halation twice daily Fluticasone Propion-Salmeterol 250-50 mcg/dose blister with device Active 0 .ROUTE .COMPLEX 60 May 09, 2024 9:09pm INHALE 1 PUFF TWICE DAILY Start: 05-09-2024 take 1 puff(s) by in halation twice daily Fluticasone Propion-Salmeterol 250-50 mcg/dose blister with device Active 0 .ROUTE .COMPLEX 60 May 09, 2024 8:09pm INHALE 1 PUFF TWICE DAILY Start: 05-09-2024 take 1 puff(s) by in halation twice daily Fluticasone Propion-Salmeterol Active 0 .ROUTE .COMPLEX 60 May 09, 2024 8:09pm INHALE 1 PUFF TWICE DAILY Start: 05-09-2024 take 1 puff(s) by in halation twice daily Fluticasone Propion-Salmeterol Active 0 .ROUTE .[facility] 60 May 09, 2024 9:09pm INHALE 1 PUFF TWICE DAILY Start: 04-10-2024 End: 05-09-2024 take 1 puff(s) by inhalation twice daily Fluticasone Propion-Salmeterol 250-50 mcg/dose blister with device Discontinued 0 .ROUTE .[facility] 60 April 10, 2024 2:12pm May 09, 2024 9:09pm INHALE 1 PUFF TWICE DAILY Start: 04-10-2024 End: 05-09-2024 take 1 puff(s) by inhalation twice daily Fluticasone Propion-Salmeterol 250-50 mcg/dose blister with device Discontinued 0 .ROUTE .COMPLEX 60 April 10, 2024 1:12pm May 09, 2024 8:09pm INHALE 1 PUFF TWICE DAILY Start: 04-10-2024 End: 05-09-2024 take 1 puff(s) by inhalation twice daily Fluticasone Propion-Salmeterol Discontinued 0 .ROUTE .COMPLEX 60 April 10, 2024 1:12pm May 09, 2024 8:09pm INHALE 1 PUFF TWICE DAILY Start: 04-10-2024 [...] Discontinued 1 INH INHALATION Twice daily April 09, 2024 11:00pm April 10, 2024 1:13pm Start: 04-10-2024 End: 04-10-2024 Fluticasone Propion-Salmeter ol (Advair Diskus) 250-50 mcg/dose blister with device Discontinued 1 INH INHALATION Twice daily April 10, 2024 12:00am April 10, 2024 2:13pm Start: 11-17-2023 End: 12-13-2023 take 1 puff(s) by mouth twice daily Fluticasone Propion-Salmeterol 250-50 mcg/dose blister with device Discontinued 0 .ROUTE .COMPLEX 60 November 17, 2023 9:26am December 13, 2023 10:14am INHALE 1 PUFF BY MOUTH TWICE DAILY Start: 11-17-2023 End: 12-13-2023 take 1 puff(s) by mouth twice daily Fluticasone Propion-Salmeterol 250-50 mcg/dose blister with device Discontinued 0 .ROUTE .COMPLEX 60 November 17, 2023 8:26am December 13, 2023 9:14am INHALE 1 PUFF BY MOUTH TWICE DAILY Start: 11-17-2023 End: 12-13-2023 take 1 puff(s) by mouth twice daily Fluticasone Propion-Salmeterol Discontinued 0 .ROUTE .COMPLEX 60 November 17, 2023 8:26am December 13, 2023 9:14am INHALE 1 PUFF BY MOUTH TWICE DAILY Start: 11-17-2023 End: 12-13-2023 take 1 puff(s) by mouth twice daily Fluticasone Propion-Salmeterol Discontinued 0 .ROUTE .COMPLEX 60 November 17, 2023 9:26am December 13, 2023 10:14am INHALE 1 PUFF BY MOUTH TWICE DAILY Start: 11-17-2023 take 1 puff(s) by mo ut twice daily Fluticasone Propion-Salmeterol Active 0 .ROUTE .COMPLEX 60 November 17, 2023 9:26am INHALE 1 PUFF BY MOUTH TWICE DAILY Start: 09-01-2023 take 1 puff(s) by in halation in the morning Fluticasone-Salmeterol 250-50 MCG/ACT aerosol powder Inhale 1 puff in the morning and 1 puff before bedtime. 09/01/2023 Active Start: 02-12-2023 End: 11-17-2023 Fluticasone Propion-Salmeter ol 250-50 mcg/dose blister with device Discontinued 1 INH INHALATION Daily February 12, 2023 12:00am November 17, 2023 9:26am Start: 02-12-2023 End: 11-17-2023 Fluticasone Propion-Salmeter ol 250-50 mcg/dose blister with device Discontinued 1 INH INHALATION Daily February 11, 2023 11:00pm November 17, 2023 8:26am Start: 02-12-2023 End: 11-17-2023 Fluticasone Propion-Salmeter ol Discontinued 1 INH INHALATION Daily February 11, 2023 11:00pm November 17, 2023 8:26am Start: 02-12-2023 End: 11-17-2023 Fluticasone Propion-Salmeter ol [...] l-Thyroxine Start: 06-20-2024 take 1 tablet by raven th once daily Start: 08-18-2023 End: 06-20-2024 take 1 tablet by mouth once daily Levothyroxine 150 mcg tablet Discontinued 150 MCG PO Daily December 13, 2023 12:00am June 20, 2024 7:40pm Start: 06-25-2017 End: 12-13-2023 Levothyroxine 175 mcg tablet Discontinued 150 MCG PO Daily June 25, 2017 12:00am December 13, 2023 10:14am Start: 06-25-2017 End: 12-13-2023 take 150 ug by mouth once daily Levothyroxine Disconti nued 150 MCG PO Daily June 24, 2017 11:00pm December 13, 2023 9:14am Start: 06-25-2017 take 175 ug by mouth [...] day Active methylPREDNISolone 4 mg oral tablet (8 sources) Corticosteroid Start: 05-16-2025 Start: 11-03-2023 methylPREDNISo lone (Medrol Dospak) 4 MG tablets USE DIRECTED 11/03/2023 Active Start: 11-03-2023 methylPREDNISo lone 4 MG as directed Orally for 6 days Oct, Active niacin 50 mg oral tablet (20 sources) Nicotinic Acid Start: 12-13-2023 take 2 tablets by mo [facility] twice daily Start: 12-13-2023 take 100 mg by mouth twice argenis ly Niacin Active 100 MG PO Twice daily December 12, 2023 11:00pm Start: 04-29-2023 take 2 tablets by [facility] every twelve hours Niacin 50 MG 2 tablets Orally Twice a day for 30 days Apr, Not-Taking/PRN potassium chloride 20 meq extended release oral tablet (20 sources) Start: 05-01-2024 take 1 tablet by raven th once daily Start: 05-01-2024 take 1 tablet by raven th once daily Potassium Chloride Active 0 .ROUTE .COMPLEX May 01, 2024 10:05am Take 1 tablet by mouth once daily Start: 05-01-2024 take 1 tablet by raven th once daily Potassium Chloride Active 0 .ROUTE .COMPLEX May 01, 2024 11:05am Take 1 tablet [...] daily Active torsemide 20 mg oral tablet (20 sources) Loop Diuretic Start: 11-13-2024 take 1 tablet by raven th every other day Start: 06-20-2024 End: 11-13-2024 take 1 tablet by mouth once daily Torsemide 20 mg tablet Discontinued 0 .ROUTE .COMPLEX June 20, 2024 7:40pm November 13, 2024 11:35am Take 1 tablet by mouth once daily Start: 03-31-2024 End: 06-20-2024 take 1 tablet by mouth once daily Torsemide 20 mg tablet Discontinued 20 MG PO Daily 30 March 31, 2024 12:00am June 20, 2024 7:40pm traMADol hydrochloride 50 mg oral tablet (20 sources) Opioid Agonist Start: 04-12-2023 take 1 tablet by mouth every four hours as needed for pain traMADol HCl 50 MG 1 tablet as needed for severe pain Orally up to every 4 hrs for 5 days GABE: [id number] Mar, Active Start: 03-21-2018 End: 04-07-2018 take 1 tablet by mouth every six hours as needed for pain Tramadol 50 mg tablet Discontinued 1 TAB PO Every 6 hours as needed for Pain March 21, 2018 12:00am April 07, 2018 11:40pm traZODone hydrochloride 50 mg oral tablet (20 sources) Serotonin Reuptake Inhibitor Start: 06-20-2024 take 2 tablets by mouth once daily at bedtime Trazodone Active 0 .ROUTE .COMPLEX 180 June 20, 2024 6:40pm TAKE 2 TABLETS BY MOUTH ONCE DAILY AT BEDTIME Start: 06-20-2024 take 2 tablets by mo uth once daily at bedtime Trazodone Active 0 .ROUTE .COMPLEX 180 June 20, 2024 7:40pm TAKE 2 TABLETS BY MOUTH ONCE DAILY AT BEDTIME Start: 12-09-2023 End: 06-20-2024 take 2 tablets by mouth once daily at bedtime Start: 12-09-2023 End: 06-20-2024 take 2 tablets by mouth once daily at bedtime Trazodone Discontinued 0 .ROUTE .COMPLEX 180 December 09, 2023 12:09pm June 20, 2024 6:40pm TAKE 2 TABLETS BY MOUTH ONCE DAILY [...] AT BEDTIME Start: 06-25-2017 End: 12-09-2023 take 3 tablets by mouth once daily at bedtime Trazodone 50 mg tablet Discontinued 100 MG PO Daily at bedtime June 25, 2017 12:00am December 09, 2023 1:10pm May take up to 150 mg if needed Start: 06-25-2017 End: 12-09-2023 take 150 mg by mouth once daily at bedtime Trazodone Discontinued 100 MG PO Daily at bedtime June 24, 2017 11:00pm December 09, 2023 12:10pm May take up to 150 mg if needed take 2 tablets by mo uth once daily at bedtime traZODone (Desyrel) 50 MG tablet TAKE 2 TABLETS BY MOUTH ONCE DAILY AT BEDTIME Active Completed/Discontinued Medications Medication Drug Class(es) Dates Sig (Normalized) Sig (Original) albuterol 0.833 mg/ml / ipratropium bromide 0.167 mg/ml inhalation solution (20 sources) Anticholinergic, beta2-Adrenergic Agonist Start: 02-19-2021 End: 02-19-2021 Ipratropium-Albuter ol 0.5 mg-3 mg(2.5 mg base)/3 mL solution for nebulization Discontinued ML INHALATION February 19, 2021 12:00am February 19, 2021 4:24pm Start: 06-25-2017 End: 02-12-2023 take 0.5 mg by inhalation every four hours Ipratropium-Albuterol 0.5 mg-3 mg(2.5 mg base)/3 mL Solution For Nebulization Discontinued 0.5 MG INHALATION Q4H June 25, 2017 12:00am February 12, 2023 10:30am Start: 06-25-2017 take 0.5 mg by inhal ation four times daily Ipratropium-Albuterol Active 0.5 MG INHALATION Four times daily June 25, 2017 12:00am Albuterol Sulfate (Proair Hfa) 90 mcg/actuation Hfa Aerosol Inhaler (20 sources) Start: 03-21-2018 End: 02-19-2021 take 1 puff(s) by inhalation every four to six hours as needed for wheezing Albuterol Sulfate (Proair Hfa) 90 mcg/actuation Hfa Aerosol Inhaler Discontinued 2 PUFF INHALATION EVERY 4-6 HOURS as needed for Shortness Of Breath Or Wheezing March 21, 2018 12:00am February 19, 2021 4:15pm Start: 03-21-2018 End: 02-19-2021 take 1 puff(s) by inhalation every four to six hours as needed for wheezing Albuterol Sulfate (Proair Hfa) 90 mcg/actuation Hfa Aerosol Inhaler Discontinued 2 PUFF INHALATION EVERY 4-6 HOURS as needed for Shortness Of Breath Or Wheezing March 20, 2018 11:00pm February 19, 2021 [...] sources) Bisphosphonate Start: 03-21-2018 End: 10-28-2020 take 1 tablet by mouth every week Alendronate 70 mg tablet Discontinued 70 MG PO every week March 21, 2018 12:00am October 28, 2020 9:31am Takes on Wednesday take 70 mg by mouth in the morni ng alendronate (Fosamax) 70 MG/75ML solution Take 70 mg by mouth every 7 (seven) days. Take in the morning with a full glass of water, on an empty stomach, and do not take anything else by mouth or lie down for the next 30 min. Active allopurinol 100 mg oral tablet (20 sources) Xanthine Oxidase Inhibitor Start: 03-21-2018 End: 04-07-2018 Allopurinol 100 mg Tablet Discontinued March 21, 2018 12:00am April 07, 2018 11:40pm Start: 03-21-2018 End: 04-07-2018 Allopurinol 100 mg Tablet Di scontinued TABLET March 21, 2018 12:00am April 07, 2018 11:40pm Start: 03-21-2018 End: 04-07-2018 Allopurinol Discontinued TAB LET March 20, 2018 11:00pm April 07, 2018 10:40pm ascorbic acid 500 mg oral tablet (20 sources) Vitamin C Start: 10-28-2020 End: 02-19-2021 take 1 tablet by mouth once daily Ascorbic Acid (Vitamin C) (Vitamin C) 500 mg Tablet Discontinued 500 MG PO Daily October 28, 2020 1:00am February 19, 2021 4:22pm unsure of dose azithromycin 250 mg oral tablet (20 sources) Macrolide Antimicrobial Start: 12-13-2023 End: 03-31-2024 Azithromycin 250 mg tablet Discontinued 250 MG PO As Directed 03 [...] 1 puff(s) by inhalation twice daily Budesonide-Formoterol 160-4.5 mcg/actuation HFA aerosol inhaler Discontinued 2 PUFF INHALATION Twice daily July 10, 2018 12:00am February 19, 2021 4:23pm Start: 07-10-2018 End: 02-19-2021 take 1 puff(s) by inhalation twice daily Budesonide-Formoterol 160-4.5 mcg/actuation HFA aerosol inhaler Discontinued 2 PUFF INHALATION Twice daily July [...] (20 sources) Start: 02-19-2021 End: 12-13-2023 take 1 tablet by mouth once daily Calcium Carbonate 400 mg calcium (1,000 mg) Tablet,Chewable Discontinued 2000 MG PO Daily February 19, [...] 2 g intravenously every twelve hours Cefepime 2 gram Recon Soln Discontinued 2 GM IV Q12H February 07, 2019 12:00am July 17, 2019 3:12pm cefuroxime 500 mg oral tablet (20 sources) Cephalosporin Antibacterial Start: 04-03-2024 End: 11-29-2024 take 1 tablet by mouth twice daily Cefuroxime Axetil 500 mg tablet Discontinued 500 MG PO Twice daily 09 04September 07, 2024 11:17am November 29, 2024 12:19pm Start: 01-13-2024 End: 03-31-2024 take 1 tablet by mouth twice daily Cefuroxime Axetil 500 mg tablet Discontinued 500 MG PO Twice daily 10 January 13, 2024 12:00am March 31, 2024 10:01am [...] Muscle Relaxant Start: 03-07-2021 End: 02-12-2023 take 1 tablet by mouth three times daily as needed for muscle spasms Cyclobenzaprine 10 mg tablet Discontinued 10 MG PO Three times daily as needed for back spasms 50 March 07, 2021 12:00am February 12, 2023 10:26am Start: 11-12-2020 End: 02-19-2021 take 1 tablet by mouth three times daily as needed for muscle spasms Cyclobenzaprine 10 mg tablet Discontinued 10 MG PO Three times daily as needed for back spasms 40 November 12, 2020 1:00am February 19, 2021 4:23pm Cyclosporine (9 sources) Calcineurin Inhibitor Immunosuppressant Start: 02-12-2023 End: 12-13-2023 Cyclosporine (Restasis) 0.05 % Dropperette Discontinued 1 DROPS OPHTHALMIC As Directed February 12, 2023 12:00am December 13, 2023 10:13am Cyclosporine (Restasis) 0.05 % Dropperette (20 sources) Start: 02-12-2023 End: 12-13-2023 Cyclosporine (Restasis) 0.05 % Dropperette Discontinued 1 DROPS OPHTHALMIC As Directed February 11, 2023 11:00pm December 13, 2023 9:13am Start: 02-12-2023 End: 12-13-2023 Cyclosporine (Restasis) 0.05 % Dropperette Discontinued 1 DROPS OPHTHALMIC As Directed February 12, 2023 12:00am December 13, 2023 10:13am Start: 02-12-2023 Cyclosporine ( Restasis) 0.05 % Dropperette Active 1 DROPS OPHTHALMIC As Directed February 11, 2023 11:00pm Start: 02-12-2023 Cyclosporine ( Restasis) 0.05 % Dropperette Active 1 DROPS OPHTHALMIC As Directed February 12, 2023 12:00am dexamethasone sodium phosphate 4 mg/ml injectable solution (9 sources) Corticosteroid Start: 09-15-2024 End: 11-29-2024 inject 6 mg by intramuscular injection three times weekly Dexamethasone Sodium Phos (Pf) 4 mg/mL solution Discontinued 6 MG IM Daily September 15, 2024 1:00am November 29, 2024 12:19pm as directed with physical therapy up to three times per week Dexamethasone Sodium Phos (Pf) 4 mg/mL solution (14 sources) Start: 09-15-2024 End: 11-29-2024 inject 6 mg by intramuscular injection three times weekly Dexamethasone Sodium Phos (Pf) 4 mg/mL solution Discontinued 6 MG IM Daily September 15, 2024 1:00am November 29, 2024 12:19pm as directed with physical therapy up to three times per week Start: 09-15-2024 inject 6 mg by intra muscular injection three times weekly Dexamethasone Sodium Phos (Pf) 4 mg/mL solution Active 6 MG IM Daily September 15, 2024 12:00am as directed with physical therapy up to three times per week docusate sodium 100 mg oral capsule (20 sources) Start: 05-25-2018 End: 12-13-2023 take 1 capsule by mouth once daily as needed for constipation Docusate Sodium (Stool Softener) 100 mg Capsule Discontinued 100 MG PO Daily as needed for Constipation May 25, 2018 12:00am December 13, 2023 10:14am doxycycline hyclate 100 mg oral capsule (20 sources) Tetracyclin e-class Drug Start: 01-25-2025 End: 04-16-2025 take 1 capsule by mouth once Doxycycline Hyclate 100 mg capsule Discontinued 100 MG PO Once January 25, 2025 11:22am April 16, 2025 11:31am Start: 10-04-2023 End: 01-25-2025 take 1 capsule by mouth twice daily Doxycycline Hyclate 100 mg capsule Discontinued 100 MG PO Twice daily December 26, 2024 12:00am January 25, 2025 11:23am DULoxetine 60 mg delayed release oral capsule (20 sources) Serotonin and Norepinephrine Reuptake Inhibitor Start: 03-21-2018 End: 02-12-2023 take 1 capsule by mouth once daily in the morning Duloxetine 60 mg capsule,delayed release(DR/EC) Discontinued 60 MG PO Every morning April 07, 2018 12:00am February 12, 2023 10:25am take 1 capsule by mouth in the m orning DULoxetine (Cymbalta) [address] capsule Take 20 mg by mouth in the morning and 20 mg before bedtime. Do not crush or chew. . Active Echinacea Purpurea Extract (20 sources) Start: 10-28-2020 [...] tablet by mouth every other day Furosemide 20 mg tablet Discontinued 0 .ROUTE .COMPLEX 45 December 09, 2023 1:09pm March 31, 2024 10:01am TAKE 1 TABLET BY MOUTH EVERY OTHER DAY Start: 03-21-2018 End: 12-09-2023 take 1 tablet by mouth once Furosemide 20 mg tablet Di scontinued 20 MG PO every Wednesday, Wednesday, and Wednesday March 21, 2018 12:00am December 09, 2023 1:10pm 20 mg orally mwf furosemide (Lasi x) 80 MG tablet Take by mouth. Active take 1 tablet by raven th every other day Furosemide 20 MG TAKE 1 TABLET BY MOUTH EVERY OTHER DAY Oral Active gabapentin 300 mg oral capsule (20 sources) Anti-epileptic Agent Start: 03-07-2021 End: 02-12-2023 take 3 capsules by mouth twice daily Gabapentin 300 mg Capsule Discontinued 900 MG PO Twice daily 60 March 07, 2021 12:00am February 12, 2023 10:27am Start: 03-07-2021 End: 02-12-2023 take 900 mg by mouth twice daily Gabapentin Discontinued 900 MG PO Twice daily 60 March 06, 2021 11:00pm February 12, 2023 9:27am Start: 02-19-2021 End: 03-07-2021 take 1 tablet by mouth twice daily Gabapentin 600 mg Tablet Discontinued 600 MG PO Twice daily February 19, 2021 12:00am March 07, 2021 8:48am Start: 06-25-2017 End: 04-07-2018 Gabapentin 300 mg capsule Discontinued June 25, 2017 12:00am April 07, 2018 11:40pm Start: 06-25-2017 End: 04-07-2018 Gabapentin Discontinued May 11:00pm April 07, 2018 10:40pm glucosamine sulfate 500 mg oral tablet (20 sources) Start: 02-19-2021 End: 02-12-2023 take 2 tablets by mouth once daily Glucosamine Sulfate (Glucosamine) 500 mg Tablet Discontinued 1000 MG PO Daily February 19, 2021 12:00am February 12, 2023 10:27am ipratropium bromide 0.2 mg/ml inhalation solution (20 sources) Anticholinergic Start: 02-12-2023 End: 12-13-2023 take 1 mL by inhalation every four hours Ipratropium [place] 0.02 % solution Discontinued 3 ML INHALATION Q4H February 12, 2023 12:00am December 13, 2023 10:14am Start: 02-12-2023 End: 12-13-2023 take 1 mL by inhalation every four hours Ipratropium [place] Discontinued 3 ML INHALATION Q4H February 11, 2023 11:00pm December 13, 2023 9:14am Start: 11-20-2022 take 2.5 mL by inhal ation every six hours Ipratropium [place] 0.02 % 2.5 mL Inhalation every 6 hrs Oct, Active Start: 11-20-2022 ipratropium (Atr ovent) 0.02 % nebulizer solution Take by nebulization every 6 (six) hours. Active Lidocaine (20 sources) Antiarrhythmic, Amide Local Anesthetic Start: 12-14-2022 Start: 12-14-2022 Lidocaine 20 M 2022 20 mg metroNIDAZOLE 500 mg oral tablet (20 sources) Nitroimidazole Antimicrobial Start: 01-06-2019 End: 01-11-2019 take 1 tablet by mouth every eight hours Metronidazole 500 mg tablet Discontinued 500 MG PO Q8H 15 5 January 06, 2019 12:00am January 10, 2019 12:00am January 11, 2019 12:05am montelukast 10 mg oral tablet (20 sources) Leukotriene Receptor Antagonist Start: 03-21-2018 End: 02-12-2023 take 1 tablet by mouth once daily Montelukast 10 mg tablet Discontinued 10 MG PO Daily July 17, 2019 3:10pm February 12, 2023 10:27am Start: 03-21-2018 End: 04-07-2018 Montelukast 10 mg tablet Dis continued March 21, 2018 12:00am April 07, 2018 11:40pm Multivitamin (Multiple Vitamins) Tablet (20 sources) Start: 05-25-2018 End: 12-13-2023 take 1 tablet by mouth once daily Multivitamin (Multiple Vitamins) Tablet Discontinued 1 TAB PO Daily May 24, 2018 11:00pm December 13, 2023 9:15am Start: 05-25-2018 End: 12-13-2023 take 1 tablet [...] 25, 2018 12:00am May 25, 2018 2:36pm mupirocin 0.02 mg/mg topical ointment (20 sources) RNA Synthetase Inhibitor Antibacterial Start: 03-31-2024 End: 11-29-2024 Mupirocin 2 % ointment Discontinued 1 APPLIC TOPICAL Twice daily 22 March 31, 2024 12:00am November 29, 2024 12:20pm naproxen sodium 220 mg oral capsule (20 [...] 5-10 mg by mouth every six hours as needed for pain Oxycodone 5 mg capsule Discontinued 5 - 10 MG PO Q6H as needed for pain 50 March 07, 2021 February 12, 2023 10:28am Start: 11-12-2020 End: 02-19-2021 take 5-10 mg by mouth every six hours as needed for pain Oxycodone 5 mg capsule Discontinued 5 - 10 MG PO Q6H as needed for pain 40 November 12, 2020 February 19, 2021 4:20pm predniSONE 20 mg oral tablet (20 sources) Start: 12-13-2023 End: 01-25-2025 Prednisone 20 mg tablet Discontinued 20 MG PO As Directed 09 01January 14, 2024 12:00am March 31, 2024 5:00pm [...] Jul, Active Start: 03-07-2021 End: 02-12-2023 Prednisone 10 mg tablets,dos e pack Discontinued 1 dose pk PO per package directions [...] 3 days Start: 11-12-2020 End: 02-19-2021 Prednisone 10 mg tablets,dos e pack Discontinued 1 dose pk PO per package directions November 12, [...] Start: 07-24-2021 take 1 capsule by mo [facility] every twelve hours Lyrica 150 MG 1 capsule Orally bid for 30 days Jun, Active Start: 05-27-2021 take 1 capsule by mo [facility] every twelve hours Lyrica 75 MG 1 capsule Orally Twice a day for 30 days Apr, Active triamcinolone acetonide 1 mg/ml topical cream (20 sources) Corticosteroid Start: 03-31-2024 End: 11-29-2024 Triamcinolone Acetonide 0.1 % cream Discontinued 1 APPLIC TOPICAL Twice daily 80 March 31, 2024 12:00am November 29, 2024 12:21pm Start: 12-14-2022 Kenalog-40 Jun, 40 mg Start: 12-14-2022 Start: 07-15-2018 Start: 07-15-2018 Kenalog -40 mg Jun, 40 mg Start: 01-06-2018 Start: 01-06-2018 Kenalog -40 mg Dec, 40 mg Start: 08-03-2017 Start: 08-03-2017 Kenalog -40 mg Jul, vitamin b12 1 mg/ml injectable solution (20 sources) Vitamin B12 Start: 02-12-2023 End: 12-13-2023 inject 1000 ug by intramuscular injection twice daily Cyanocobalamin (Vitamin B-12) (Vitamin B-12) 1,000 mcg/mL Solution Discontinued 1000 MCG IM 2 times daily February 12, 2023 12:00am December 13, 2023 10:13am dosage not clarified Zinc (20 sources) Start: 10-28-2020 End: 02-19-2021 take 1 tablet by mouth once daily Zinc 50 mg Tablet Discontinued 50 MG PO Daily October 28, 2020 1:00am February 19, 2021 4:20pm Start: 10-28-2020 End: 02-19-2021 take 1 tablet by mouth once daily Zinc 50 mg Tablet Discontinued 50 MG PO Daily October 28, [...] 2021 4:20pm Start: 10-11-2018 End: 07-17-2019 take 1 tablet by mouth once daily Zinc 50 mg Tablet Discontinued 50 MG PO Daily October 11, 2018 1:00am July 17, 2019 3:12pm Start: 10-11-2018 End: 07-17-2019 take 1 tablet by mouth once daily Zinc 50 mg Tablet Discontinued 50 MG PO Daily October 11, [...] 10-28-2020 take 5 mg intravenously once Zoledronic Obmt-Davgvmrg-Akjed (Reclast) 5 mg/100 mL Piggyback Discontinued 5 [...] Translations: [Severe persistent asthma, uncomplicated] Chronic Chronic kidney disease (20 sources) Chronic kidney disease; Translations: [Chronic kidney disease, unspecified] 11-10-2024 Chronic Chronic obstructive pulmonary disease and bronchiectasis (20 sources) Mucopurulent chronic bronchitis; Translations: [Mucopurulent chronic bronchitis] Onset: 10-05-2016 Chronic Comment on above: Echo: LVEF 65%, RVSP 38, normal RV size/function - 03/2024 Chronic obstructive pulmonary disease and bronchiectasis (1 source) Chronic obstructive pulmonary disease and bronchiectasis Onset: 06-06-2018 Complication of device; implant or graft (20 sources) 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; Translations: [Pain due to internal orthopedic prosthetic devices, implants and grafts, initial encounter] 04-12-2024 Episodic Complication of device; implant or graft (2 sources) Pain due to internal orthopedic prosthetic devices, implants and grafts, initial encounter; Translations: [Other complications due to internal joint prosthesis] 04-12-2024 Episodic Complications of surgical procedures or medical care (20 sources) Non-healing surgical wound; Translations: [Other complications of procedures, not elsewhere classified, initial encounter] 12-06-2018 Episodic Comment on above: Problem List clean-u p per request of Phys. EHR Cmte Deficiency and other anemia (20 sources) Pernicious [...] as uncontrolled] Chronic Disorders of lipid metabolism (20 sources) Pure hypercholesterolemia ; Translations: [Pure hypercholesterolemia , unspecified] Onset: 11-12-2015 06-26-2024 Chronic Essential hypertension (9 sources) Benign essential hypertension; Translations: [Essential hypertension, benign] Onset: 08-01-2014 Chronic Fluid and electrolyte disorders (3 sources) Hypokalemia; Translations: [Hypokalemia] Episodic Fracture of lower limb (20 sources) Closed fracture of femur; Translations: [Unspecified fracture of right femur, initial encounter for closed fracture] Onset: 04-09-2020 04-09-2020 Episodic Comment on above: Problem List clean-u p per request of Phys. EHR Cmte Fracture of neck of femur (hip) (20 sources) Closed fracture of hip; Translations: [Fracture of unspecified part of neck of right femur, initial encounter for closed fracture] Onset: 09-09-2016 Episodic Infective arthritis and osteomyelitis (except that caused by tuberculosis or sexually transmitted disease) (20 sources) Osteomyelitis of sacrum; Translations: [Osteomyelitis of vertebra, sacral and sacrococcygeal region] 01-10-2019 Chronic Comment on above: Problem List clean-u p per request of Phys. EHR Cmte Joint disorders and dislocations; trauma-related (3 sources) [...] recurrent, in full remission] Onset: 10-04-2014 Chronic Mycoses (5 sources) Onychomycosis; Translations: [Tinea unguium] Onset: 03-16-2023 03-16-2023 Episodic Nutritional deficiencies (4 sources) Vitamin D deficiency, unspecified; Translations: [Vitamin D deficiency] Onset: 05-02-2022 Chronic Osteoarthritis (20 sources) Localized, primary osteoarthritis of the wrist; Translations: [Primary osteoarthritis, right wrist] Onset: 10-04-2014 Resolved: 02-17-2022 Chronic Osteoporosis (20 sources) Osteoporosis; Translations: [Age-related osteoporosis without current pathological fracture] Onset: 12-07-2022 Chronic Other aftercare (20 sources) High risk drug monitoring status; Translations: [correction (current) use of opiate analgesic] Episodic Other aftercare (3 sources) Long-term current use of drug therapy; Translations: [Other [facility] (current) drug therapy] Episodic Other aftercare (3 sources) Long-term current use of inhaled steroid; Translations: [correction (current) use of inhaled steroids] Episodic Other [...] as traumatic] Episodic Other connective tissue disease (20 sources) Synovial cyst of lumbar spine; Translations: [Other bursal cyst, other site] 11-12-2020 Episodic Comment on above: Problem List clean-u p per request of Phys. EHR Cmte Other connective tissue disease (20 sources) History of lumbar fusion; Translations: [Arthrodesis status] Episodic Other connective tissue disease (2 sources) Arthrodesis status Episodic Other connective tissue disease (2 sources) Trochanteric bursitis, right hip Episodic Other connective tissue disease (3 sources) Unspecified rotator cuff tear or rupture of left shoulder, not specified as traumatic Episodic Other connective tissue disease (6 sources) Pain in right hand; Translations: [Pain in limb] Episodic Other connective tissue disease (1 source) Pain in left hand Episodic Other connective tissue disease (1 source) Pain in right leg Episodic Other connective tissue disease (20 sources) Trochanteric bursitis; Translations: [Trochanteric bursitis, left hip] 11-25-2023 Episodic Other connective tissue disease (20 sources) Bursitis of hip; Translations: [Trochanteric bursitis, unspecified hip] 11-25-2023 Episodic Other connective tissue disease (20 sources) Trochanteric bursitis, unspecified hip; Translations: [Enthesopathy of hip region] 11-25-2023 Episodic Other connective tissue disease (5 sources) Hand pain; Translations: [Pain in right hand] 01-01-2025 Episodic Other connective tissue disease (9 sources) Trochanteric bursitis of left hip; Translations: [Trochanteric bursitis, left hip] 02-21-2025 Episodic Other connective tissue disease (11 sources) Pain of bilateral hands; Translations: [Pain in right hand] 01-01-2025 Episodic Other diseases of veins and lymphatics (20 sources) Peripheral venous insufficiency; Translations: [Venous insufficiency (chronic) (peripheral)] Episodic Other diseases of veins and lymphatics (17 sources) Venous insufficiency of leg; Translations: [Venous insufficiency (chronic) (peripheral)] 12-27-2024 Episodic Other diseases of veins and lymphatics (7 sources) Venous insufficiency (chronic) (peripheral); Translations: [Venous (peripheral) insufficiency, unspecified] 12-27-2024 Episodic Other eye disorders (3 sources) Posterior vitreous detachment of left eye; Translations: [Vitreous degeneration, left eye] Onset: 01-10-2024 01-10-2024 Chronic Other injuries and conditions due to external [...] neuropathy, unspecified] Chronic Other nervous system disorders (5 sources) Polyneuropathy; Translations: [Polyneuropathy, unspecified] 03-19-2025 Chronic Other nervous system disorders (3 sources) Idiopathic peripheral neuropathy; Translations: [Hereditary and idiopathic neuropathy, unspecified] Onset: 03-17-2023 03-17-2023 Chronic Other nervous system disorders (16 sources) Bilateral carpal tunnel syndrome; Translations: [Carpal tunnel syndrome, bilateral upper limbs] 04-16-2025 Chronic Other nervous system disorders (3 sources) [...] right wrist] Episodic Other non-traumatic joint disorders (7 sources) Pain in left hip Onset: 08-15-2021 Resolved: 11-07-2021 Episodic Other non-traumatic joint disorders (20 sources) Hip pain; Translations: [Pain in left hip] 11-25-2023 Episodic Other non-traumatic joint disorders (3 sources) Pain in right hip Episodic Other non-traumatic joint disorders (2 sources) Pain in left shoulder Episodic Other non-traumatic joint disorders (20 sources) Pain in unspecified knee; Translations: [Knee pain] 04-10-2024 Episodic Other non-traumatic joint disorders (7 sources) Pain in unspecified hip; Translations: [Pain in joint, pelvic region and thigh] 07-05-2024 Episodic Other non-traumatic joint disorders (20 sources) Pain in right knee; Translations: [Pain in both knees] Onset: 05-16-2025 03-28-2025 Episodic Other non-traumatic joint disorders (4 sources) 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; Translations: [Pain in right hip] 05-04-2025 Episodic Other nutritional; endocrine; and metabolic disorders [...] Chronic Other nutritional; endocrine; and metabolic disorders (20 sources) Obesity, unspecified; Translations: [Obesity, unspecified] 03-31-2024 Chronic Other nutritional; endocrine; and metabolic disorders (3 sources) Overweight; Translations: [Overweight] Episodic Other screening for suspected conditions (not mental disorders or infectious disease) (3 sources) Imaging result abnormal; Translations: [Abnormal findings on diagnostic imaging of other specified body structures] Chronic Other screening for suspected conditions (not mental disorders or infectious disease) (20 sources) Abnormal findings on diagnostic imaging of [...] lumbar region] Onset: 08-31-2018 Resolved: 09-02-2021 Episodic Comment on above: Problem List clean-u p per request of Phys. EHR Cmte Sprains and strains (20 sources) Sprain of [...] status; Translations: [Encounter for preprocedural respiratory examination] Past or Other Problems Problem Classification Problem [...] object(s), not elsewhere classified, initial encounter; Translations: [[facility] OT SHRP OB NOT ELSW CLASS INI] Onset: [...] 09-02-2021 Episodic Other aftercare (1 source) Other [employer] representative (current) drug therapy; Translations: [OTH [facility] CURRENT DRUG THERAPY] Onset: 04-17-2022 Episodic Other connective tissue disease (9 sources) Trochanteric bursitis, left hip; Translations: [Trochanteric bursitis, left hip] Onset: 12-03-2021 Resolved: 03-11-2022 Episodic Other connective tissue disease (3 sources) Cramp in limb; Translations: [Cramp of limb] Onset: 04-28-2016 Episodic Other connective tissue disease (3 sources) Pain in both feet; Translations: [Pain in right foot] Onset: 03-17-2023 03-17-2023 Episodic Other injuries and conditions due to external causes (3 sources) Old healed fracture of bone ; Translations: [Personal history of (healed) traumatic fracture] Onset: 09-27-2012 Episodic Pathological fracture (6 sources) Osteoporosis of [...] Test Name Value Interpretation Reference Range Facility X-ray reportOrdered By: Arnaldo Lemus on 05-16-2025 Study report [facility] [address] [place] [address] XRay Report Signed Patient: Tiana Louis MR#: [id number] : 1945 Acct:[id number] Age/Sex: 80 / F ADM Date: 5 Loc: [facility] [place] Room: Type: [facility] Attending Dr: Coy Cassidy II, MD Copies to: Coy Cassidy MD~ Ordering Provider: Coy Cassidy MD Date of Service: 05/16/25 XR/XR knee RT 3V - NOT FOR ER USE: M25.561 - Pain in right knee 4 views right knee plain film COMPARISON: 11/26/2022 HISTORY: Increasing right knee pain. Fell. ACUTE FINDINGS: Adequate alignment. No acute fracture DEGENERATIVE CHANGE: Unremarkable SOFT TISSUE FINDINGS: Unremarkable JOINT EFFUSION: None POSTOP CHANGES: Right knee arthroplasty. Femoral fixation. Visualized hardwareunremarkable. No complication BONE MINERALIZATION: Adequate XR/XR knee RT 3V - NOT FOR ER USE IMPRESSION: No hardware complication. No acute fracture. Impression dictated by: Vaibhav Lemus M.D. 05/16/2025 6:45 PM Dictation Location: [place] [address] Transcribed By: [facility] 05/16/251844 Dictated By: Vaibhav Lemus DO 05/16/251842 Signed By: 05/16/251844 [facility] XR knee RT 3V - NOT FOR ER U Ebony 05-16-2025 XR knee RT 3V - NOT FOR ER USE [facility] [address] [facility] [place] [address] XRay Report Signed Patient: Tiana Louis MR#: [id number] : 1945 Acct:[id number] Age/Sex: 80 / F ADM Date: 05/16/25 Loc: [facility] Room: Type: [facility] Attending Dr: Coy Cassidy II, MD Copies to: Coy Cassidy MD Ordering Provider: Coy Cassidy MD Date of Service: 05/16/25 XR/XR knee RT 3V - NOT FOR ER USE: M25.561 - Pain in right knee 4 views right knee plain film COMPARISON: 11/26/2022 HISTORY: Increasing right knee pain. Fell. ACUTE FINDINGS: Adequate alignment. No acute fracture DEGENERATIVE CHANGE: Unremarkable SOFT TISSUE FINDINGS: Unremarkable JOINT EFFUSION: None POSTOP CHANGES: Right knee arthroplasty. Femoral fixation. Visualized hardware unremarkable. No complication BONE MINERALIZATION: Adequate XR/XR knee RT 3V - NOT FOR ER USE IMPRESSION: No hardware complication. No acute fracture. Impression dictated by: Vaibhav Lemus M.D. 05/16/2025 6:45 PM Dictation Location: [facility] Transcribed By: [facility] 05/16/251844 Dictated By: Vaibhav Lemus DO 05/16/251842 Signed By: 05/16/251844 Normal [facility] Glomerular filtration rate ( GFR) estimation in non- AmericanOrdered By: Chucho Saravia on 05-08-2025 GFR/1.73 sq M.predicted among non-blacks MDRD (S/P/Bld) [Vol rate/Area] mL/min/{1.73_m2} >=60 mL/min/1.73 m 2 [facility] - Chemistry and C hemistry - challengeOrdered By: Chucho Saravia on 05-08-2025 Calcium [Mass/Vol] 9.5 mg/dL 8.5-10.1 [facility] Chloride [Moles/Vol] 109 mmol/L High 98-107 [facility] CO2 [Moles/Vol] 27.9 mmol/L 21.0-32.0 [facility] Creatinine [Mass/Vol] 0.78 mg/dL 0.55-1.02 [facility] GFR/1.73 sq M.predicted MDRD (S/P/Bld) [Vol rate/Area] mL/min/{1.73_m2} >=60 mL/min/1.73 m 2 [facility] Glucose [Mass/Vol] 94 mg/dL 74-106 [facility] Potassium [Moles/Vol] 3.6 mmol/L 3.5-5.1 [facility] Sodium [Moles/Vol] 141 mmol/L 136-145 [facility] Urea nitrogen [Mass/Vol] 14.0 mg/dL 7.0-18.0 [facility] Urea nitrogen/Creatinine [Mass ratio] 17.9 mg/mg [facility] No Panel InformationOrdered By: Chucho Saravia on 05-08-2025 25-Hydroxy Vitamin D Total 81.7 ng/mL [facility] Comment on above: <20 ng/mL Vit D defi cient20-<30 ng/mL Vit D nevflrmngqzx34-769 ng/mL Vit D sufficient>100 ng/mL Potential Toxicity Serum or plasma anion gap de terminationOrdered By: Chucho Saravia on 05-08-2025 Anion gap [Moles/Vol] 7.7 mmol/L [facility] X-ray reportOrdered By: Yared Delong on 01-01-2025 Study report [facility] [address] [place] [address] XRay Report Signed Patient: Tiana Louis MR#: [id number] : 1945 Acct:[id number] Age/Sex: 79 / F ADM Date: 5 Loc: [facility] Room: Type: [facility] Attending Dr: Barry Patel MD Copies to: Barry Patel MD~ Ordering Provider: Barry Patel MD Date of Service: 01/01/25 XR/XR hand BI 3V: 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 Bilateral hand series 4 views each. Reason for exam: Bilateral hand pain. COMPARISON: Bilateral hand series 07/13/2023. FINDINGS: Left hand demonstrates no focal soft tissue abnormality or acute bony process. Bones are grossly demineralized. Severe degenerative changes involving the CMC joint of the thumb. Mild to moderate degenerative changes involving the IP joints. No bony erosions. A similar process is seen involvingthe right hand without acute bony process. XR/XR hand BI 3V Impression: Degenerative changes involving both hands worst at the CMC joints ofthe thumbs. No acute bony process. Impression dictated by: Mir Delong Jr., D.O.01/01/2025 3:36 PM Dictation Location: [facility]23 Transcribed By: STEF 01/01/25 1536 Dictated By: Mir Delong Jr, DO 01/01/25 153 Signed By: 01/01/25 1536 [facility] XR hand BI 3Von 01-01-2025 XR hand BI 3V [facility] [address] [place] [address] XRay Report Signed Patient: Tiana Louis MR#: [id number] : 1945 Acct:[id number] Age/Sex: 79 / F ADM Date: 01/01/25 Loc: [facility] Room: Type: [facility] Attending Dr: Barry Patel MD Copies to: Barry Patel MD Ordering Provider: Barry Patel MD Date of Service: 01/01/25 XR/XR hand BI 3V: 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 Bilateral hand series 4 views each. Reason for exam: Bilateral hand pain. COMPARISON: Bilateral hand series 07/13/2023. FINDINGS: Left hand demonstrates no focal soft tissue abnormality or acute bony process. Bones are grossly demineralized. Severe degenerative changes involving the CMC joint of the thumb. Mild to moderate degenerative changes involving the IP joints. No bony erosions. A similar process is seen involving the right hand without acute bony process. XR/XR hand BI 3V Impression: Degenerative changes involving both hands worst at the CMC joints of the thumbs. No acute bony process. Impression dictated by: Mir Delong Jr., D.O.01/01/2025 3:36 PM Dictation Location: [facility] Transcribed By: STEF 01/01/25 1536 Dictated By: Mir Delong Jr, DO 01/01/25 1535 Signed By: 01/01/25 153 Normal [facility] Estimated glomerular filtrat ion rate (GFR) non- Americanon 12-21-2024 GFR/1.73 sq M.predicted among non-blacks MDRD (S/P/Bld) [Vol rate/Area] Estimated glomerular filtration rate (GFR) non- Low >=60 mL/min/1.73 m 2 [facility] - Chemistry and C hemistry - challengeon 12-21-2024 Calcium [Mass/Vol] 9.2 mg/dL 8.5-10.1 [facility] Chloride [Moles/Vol] 103 mmol/L 98-107 [facility] CO2 [Moles/Vol] 28.4 mmol/L 21.0-32.0 [facility] Creatinine [Mass/Vol] 0.93 mg/dL 0.55-1.02 [facility] GFR/1.73 sq M.predicted MDRD (S/P/Bld) [Vol rate/Area] mL/min/{1.73_m2} >=60 mL/min/1.73 m 2 [facility] Glucose [Mass/Vol] 77 mg/dL 74-106 [facility] Potassium [Moles/Vol] 3.9 mmol/L 3.5-5.1 [facility] Sodium [Moles/Vol] 140 mmol/L 136-145 [facility] Urea nitrogen [Mass/Vol] 16.0 mg/dL 7.0-18.0 [facility] Urea nitrogen/Creatinine [Mass ratio] 17.2 mg/mg [facility] Microalbumin [Mass/volume] i n Urineon 12-21-2024 Albumin DL <= 20 mg/L (U) [Mass/Vol] Microalbumin [Mass/volume] in Urine <=30.0 [facility] No Panel Informationon 12-21 Urine Random Creatinine 58.31 mg/dL 20.00-300.0 0 [facility] Serum or plasma anion gap de terminationon 12-21-2024 Anion gap [Moles/Vol] Serum or plasma an ion gap determination [facility] Estimated glomerular filtrat ion rate (GFR) non- Americanon 11-10-2024 GFR/1.73 sq M.predicted among non-blacks MDRD (S/P/Bld) [Vol rate/Area] Estimated glomerular filtration rate (GFR) non- Low >=60 mL/min/1.73 m 2 [facility] - Chemistry and C hemistry - challengeon 11-10-2024 Calcium [Mass/Vol] 9.9 mg/dL 8.5-10.1 [facility] Chloride [Moles/Vol] 107 mmol/L 98-107 [facility] CO2 [Moles/Vol] 30.1 mmol/L 21.0-32.0 [facility] Creatinine [Mass/Vol] 1.32 mg/dL High 0.55-1.02 [facility] GFR/1.73 sq M.predicted MDRD (S/P/Bld) [Vol rate/Area] 47 mL/min/{1.73_m2} Low >=60 mL/min/1.73 m 2 [facility] Glucose [Mass/Vol] 89 mg/dL 74-106 [facility] Potassium [Moles/Vol] 4.4 mmol/L 3.5-5.1 [facility] Sodium [Moles/Vol] 146 mmol/L High 136-145 [facility] Urea nitrogen [Mass/Vol] 12.0 mg/dL 7.0-18.0 [facility] Urea nitrogen/Creatinine [Mass ratio] 9.1 mg/mg [facility] No Panel Informationon 11-10 25-Hydroxy Vitamin D Total 92.4 ng/mL [facility] Comment on above: <20 ng/mL Vit D defi cient20-<30 ng/mL Vit D iriunvkgcltb16-594 ng/mL Vit D sufficient>100 ng/mL Potential Toxicity Serum or plasma anion gap de terminationon 11-10-2024 Anion gap [Moles/Vol] Serum or plasma an ion gap determination [facility] Estimated glomerular filtrat ion rate (GFR) non- Americanon 08-03-2024 GFR/1.73 sq M.predicted among non-blacks MDRD (S/P/Bld) [Vol rate/Area] Estimated glomerular filtration rate (GFR) non- Low >=60 mL/min/1.73 m 2 [facility] - Chemistry and C hemistry - challengeon 08-03-2024 Calcium [Mass/Vol] 9.2 mg/dL 8.5-10.1 [facility] Chloride [Moles/Vol] 108 mmol/L High 98-107 [facility] CO2 [Moles/Vol] 23.7 mmol/L 21.0-32.0 [facility] Creatinine [Mass/Vol] 1.19 mg/dL High 0.55-1.02 [facility] GFR/1.73 sq M.predicted MDRD (S/P/Bld) [Vol rate/Area] 53 mL/min/{1.73_m2} Low >=60 mL/min/1.73 m 2 [facility] Glucose [Mass/Vol] 98 mg/dL 74-106 [facility] Potassium [Moles/Vol] 4.1 mmol/L 3.5-5.1 [facility] Sodium [Moles/Vol] 142 mmol/L 136-145 [facility] Urea nitrogen [Mass/Vol] 27.0 mg/dL High 7.0-18.0 [facility] Urea nitrogen/Creatinine [Mass ratio] 22.7 mg/mg [facility] No Panel Informationon 08-03 25-Hydroxy Vitamin D Total 81.6 ng/mL [facility] Comment on above: <20 ng/mL Vit D defi cient20-<30 ng/mL Vit D qkkrunhdzjdf52-051 ng/mL Vit D sufficient>100 ng/mL Potential Toxicity Serum or plasma anion gap de terminationon 08-03-2024 Anion gap [Moles/Vol] Serum or plasma an ion gap determination [facility] MM screening mammo BI w/CADo n 07-12-2024 MM screening mammo BI w/[place] [address] Mammography Report Signed Patient: Tiana Louis MR#: [id number] : 1945 Acct:[id number] Age/Sex: 79 / F ADM Date: 07/12/24 Loc: OR Room: [facility] Attending Dr: Chucho Saravia DO Copies to: Chucho Saravia DO Ordering Provider: Chucho Saravia DO Date of Service: 07/12/24 MM/MM screening mammo BI w/CAD: Z12.31 - Encounter for screening mammogram for malignant ... CLINICAL DATA: Screening for malignancy. Prior breast reduction. BILATERAL SCREENING MAMMOGRAMS - FULL FIELD DIGITAL WITH TOMOSYNTHESIS AND CAD Tomosynthesis craniocaudal and mediolateral oblique views of both breasts were obtained using low- dose digital technique. Comparison is made to prior studies from July 03, 2021 through July 08, 2023. This examination was reviewed with the aid of CAD. The breast parenchyma has been largely replaced by fat. Postoperative scarring with fat necrosis and dystrophic calcifications is again noted bilaterally. There are no developing masses, typically malignant [...] next mammogram. Impression dictated by: Tomeka Obando M.D.07/12/2024 2:37 PM Dictation Location: [facility] Transcribed By: [facility] 07/12/24 1437 Dictated By: Tomeka Obando MD 07/12/24 1423 Signed By: 07/12/24 1437 Normal [facility] Cholesterol in LDL Calc [Mas s/Vol]on 06-27-2024 Cholesterol in LDL [Mass/Vol] 159.0 mg/dL [facility] Comment on above: <100 mg/dl [id number] 0-129 mg/dl NEAR OR ABOVE [id number] mg/dl BORDERLINE [id number] mg/dl HIGH>190 mg/dl VERY HIGH Cholesterol in VLDL Calc [Ma ss/Vol]on 06-27-2024 Cholesterol in VLDL [Mass/Vol] 24.0 mg/dL [facility] - Chemistry and C hemistry - challengeon 06-27-2024 Cholesterol [Mass/Vol] 255 mg/dL High <=200 [facility] Cholesterol in HDL [Mass/Vol] 72 mg/dL High 40-60 [facility] Comment on above: > or =60 mg/dl - LOW CARDIOVASCULAR RISK<40 mg/dl - HIGH CARDIOVASCULAR RISK Triglyceride [Mass/Vol] 120 mg/dL <=150 [facility] TSH Qn 2.021 m[IU]/L 0.358-3.740 [facility] Serum or plasma total choles terol/high density lipoprotein (HDL) cholesterol mass candice 06-27-2024 Cholesterol.total/Chol esterol in HDL [Mass ratio] 3.5 {ratio} [facility] Comment on above: 3.3 - 4.4 LOW RISK4. 4 - 7.1 AVERAGE RISK7.1 - 11.0 MODERATE RISK>11.0 HIGH RISK Estimated glomerular filtrat ion rate (GFR) non- Americanon 05-15-2024 GFR/1.73 sq M.predicted among non-blacks MDRD (S/P/Bld) [Vol rate/Area] mL/min/{1.73_m2} >=60 [facility] - Chemistry and C hemistry - challengeon 05-15-2024 Calcium [Mass/Vol] 9.2 mg/dL 8.5-10.1 [facility] Chloride [Moles/Vol] 107 mmol/L 98-107 [facility] CO2 [Moles/Vol] 30.2 mmol/L 21.0-32.0 [facility] Creatinine [Mass/Vol] 0.85 mg/dL 0.55-1.02 [facility] GFR/1.73 sq M.predicted MDRD (S/P/Bld) [Vol rate/Area] mL/min/{1.73_m2} >=60 [facility] Glucose [Mass/Vol] 71 mg/dL Low 74-106 [facility] Potassium [Moles/Vol] 3.8 mmol/L 3.5-5.1 [facility] Sodium [Moles/Vol] 143 mmol/L 136-145 [facility] Urea nitrogen [Mass/Vol] 22.0 mg/dL High 7.0-18.0 [facility] Urea nitrogen/Creatinine [Mass ratio] 25.9 mg/mg [facility] No Panel Informationon 05-15 25-Hydroxy Vitamin D Total 83.4 ng/mL [facility] Comment on above: <20 ng/mL Vit D defi cient20-<30 ng/mL Vit D jokknzqtpypk42-700 ng/mL Vit D sufficient>100 ng/mL Potential Toxicity Serum or plasma anion gap de terminationon 05-15-2024 Anion gap [Moles/Vol] 9.6 mmol/L [facility] Basophils Auto (Bld) [#/Vol] Ordered By: Coy Cassidy on 04-12-2024 Basophils (Bld) [#/Vol] 0.1 10*3/uL 0.0-0.2 [facility] Basophils/100 WBC Auto (Bld) Ordered By: Coy Cassidy on 04-12-2024 Basophils/100 WBC (Bld) 2.0 % . [facility] C reactive protein [Mass/vol ume] in Serum or PlasmaOrdered By: Coy Cassidy on 04-12-2024 CRP [Mass/Vol] < 0.5 mg/dL 0.0-0.5 [facility] Eosinophils Auto (Bld) [#/Vo l]Ordered By: Coy Cassidy on 04-12-2024 Eosinophils (Bld) [#/Vol] 0.3 10*3/uL 0.0-0.45 [facility] Eosinophils/100 WBC Auto (Bl d)Ordered By: Coy Cassidy on 04-12-2024 Eosinophils/100 WBC (Bld) 6.0 % . [facility] Erythrocyte distribution wid th Auto (RBC) [Ratio]Ordered By: Coy Cassidy on 04-12-2024 Erythrocyte distribution width (RBC) [Ratio] 16.4 % High 11.9-15.3 [facility] Erythrocyte sedimentation ra te by Photometric methodOrdered By: Coy Cassidy on 04-12-2024 ESR Photometric method (Bld) [Velocity] 32 mm/hr High 0-29 [facility] Fibrin D-dimer [Presence] in Platelet poor plasma by Latex agglutinationOrdered By: Coy Cassidy on 04-12-2024 Fibrin D-dimer LA Ql (PPP) 463 ng/mL High 0-243 [facility] Comment on above: The reference range [...] coagulation studies. Please contact the laboratory at [phone] for redraw instructions. Hematocrit Auto (Bld) [Volum e fraction]Ordered By: Coy Cassidy on 04-12-2024 Hematocrit (Bld) [Volume fraction] 36.9 % 34.0-46.4 [facility] Hemoglobin [Mass/volume] in BloodOrdered By: Coy Cassidy on 04-12-2024 Hemoglobin (Bld) [Mass/Vol] 12.2 g/dL 11.8-15.4 [facility] Leukocytes [#/volume] correc ana for nucleated erythrocytes in Blood by Automated counOrdered By: Coy Cassidy on 04-12-2024 WBC corrected for nucl RBC Auto (Bld) [#/Vol] 4.8 10*3/uL 3.8-11.6 [facility] Lymphocytes Auto (Bld) [#/Vo l]Ordered By: Coy Cassidy on 04-12-2024 Lymphocytes (Bld) [#/Vol] 1.9 10*3/uL 1.00-4.8 [facility] Lymphocytes/100 WBC Auto (Bl d)Ordered By: Coy Cassidy on 04-12-2024 Lymphocytes/100 WBC (Bld) 38.6 % . [facility] MCH Auto (RBC) [Entitic mass ]Ordered By: Coy Cassidy on 04-12-2024 MCH (RBC) [Entitic mass] 28.7 pg 24.7-34.3 [facility] MCHC Auto (RBC) [Mass/Vol]Or dered By: Coy Cassidy on 04-12-2024 MCHC (RBC) [Mass/Vol] 32.9 g/dL 32.0-35.0 [facility] MCV Auto (RBC) [Entitic vol] Ordered By: Coy Cassidy on 04-12-2024 MCV (RBC) [Entitic vol] 87.1 fL 80-100 [facility] Monocytes Auto (Bld) [#/Vol] Ordered By: Coy Cassidy on 04-12-2024 Monocytes (Bld) [#/Vol] 0.4 10*3/uL 0.0-0.8 [facility] Monocytes/100 WBC Auto (Bld) Ordered By: Coy Cassidy on 04-12-2024 Monocytes/100 WBC (Bld) 9.0 % . [facility] Neutrophils Auto (Bld) [#/Vo l]Ordered By: Coy Cassidy on 04-12-2024 Neutrophils (Bld) [#/Vol] 2.1 10*3/uL 1.8-7.7 [facility] Neutrophils/100 WBC Auto (Bl d)Ordered By: Coy Cassidy on 04-12-2024 Neutrophils/100 WBC (Bld) 44.4 % . [facility] Nucleated erythrocytes [Pres ence] in Blood by Automated countOrdered By: Coy Cassidy on 04-12-2024 Nucleated RBC Auto Ql (Bld) 0.3 /100{WBC} 0-0.5 [facility] Platelet mean volume Auto (B ld) [Entitic vol]Ordered By: Coy Cassidy on 04-12-2024 Platelet mean volume (Bld) [Entitic vol] 8.5 fL 6.3-10.7 [facility] Platelets Auto (Bld) [#/Vol] Ordered By: Coy Cassidy on 04-12-2024 Platelets (Bld) [#/Vol] 380 10*3/uL 150-450 [facility] RBC Auto (Bld) [#/Vol]Ordere d By: Coy Cassidy on 04-12-2024 RBC (Bld) [#/Vol] 4.24 10*6/uL 3.60-5.00 [facility] WBC Auto (Bld) [#/Vol]Ordere d By: Coy Cassidy on 04-12-2024 WBC (Bld) [#/Vol] 4.8 10*3/uL 3.8-11.6 [facility] Basophils Auto (Bld) [#/Vol] on 03-31-2024 Basophils (Bld) [#/Vol] 0.1 10 3/uL 0.0-0.1 [facility] Basophils/100 WBC Auto (Bld) on 03-31-2024 Basophils/100 WBC (Bld) 1.5 % 0.2-2.0 [facility] Eosinophils/100 WBC Auto (Bl d)on 03-31-2024 Eosinophils/100 WBC (Bld) 5.6 % 0.9-7.0 [facility] Erythrocyte distribution wid th Auto (RBC) [Ratio]on 03-31-2024 Erythrocyte distribution width (RBC) [Ratio] 15.8 % High 11.0-15.0 [facility] Estimated glomerular filtrat ion rate (GFR) non- Americanon 03-31-2024 GFR/1.73 sq M.predicted among non-blacks MDRD (S/P/Bld) [Vol rate/Area] mL/min/{1.73_m2} >=60 [facility] Globulin Calc (S) [Mass/Vol] on 03-31-2024 Globulin (S) [Mass/Vol] 3.4 g/dL [facility] Hematocrit Auto (Bld) [Volum e fraction]on 03-31-2024 Hematocrit (Bld) [Volume fraction] 37.6 % 36.0-48.0 [facility] Hemoglobin [Mass/volume] in Bloodon 03-31-2024 Hemoglobin (Bld) [Mass/Vol] 11.8 g/dL Low 12.0-16.0 [facility] - Chemistry and C hemistry - challengeon 03-31-2024 Albumin [Mass/Vol] 3.7 g/dL 3.4-5.0 [facility] ALP [Catalytic activity/Vol] 51 U/L 46-116 [facility] ALT [Catalytic activity/Vol] 29 U/L 14-59 [facility] AST [Catalytic activity/Vol] 18 U/L 15-37 [facility] Bilirubin [Mass/Vol] 0.4 mg/dL 0.2-1.0 [facility] Calcium [Mass/Vol] 9.0 mg/dL 8.5-10.1 [facility] Chloride [Moles/Vol] 106 mmol/L 98-107 [facility] CO2 [Moles/Vol] 28.6 mmol/L 21.0-32.0 [facility] Creatinine [Mass/Vol] 0.88 mg/dL 0.55-1.02 [facility] GFR/1.73 sq M.predicted MDRD (S/P/Bld) [Vol rate/Area] mL/min/{1.73_m2} >=60 [facility] Glucose [Mass/Vol] 89 mg/dL 74-106 [facility] Potassium [Moles/Vol] 4.1 mmol/L 3.5-5.1 [facility] Protein [Mass/Vol] 7.1 g/dL 6.4-8.2 [facility] Sodium [Moles/Vol] 142 mmol/L 136-145 [facility] TSH Qn 2.110 m[IU]/L 0.358-3.740 [facility] Urea nitrogen [Mass/Vol] 15.0 mg/dL 7.0-18.0 [facility] Urea nitrogen/Creatinine [Mass ratio] 17.0 mg/mg [facility] - Hematology and Cell countson 03-31-2024 Immature granulocytes/100 WBC (Bld) 0.2 % 0.0-0.5 [facility] Leukocytes [#/volume] correc ana for nucleated erythrocytes in Blood by Automated counon 03-31-2024 WBC corrected for nucl RBC Auto (Bld) [#/Vol] 4.1 10 3/uL 4.0-11.0 [facility] Lymphocytes Auto (Bld) [#/Vo l]on 03-31-2024 Lymphocytes (Bld) [#/Vol] 1.6 10 3/uL 1.2-3.8 [facility] Lymphocytes/100 WBC Auto (Bl d)on 03-31-2024 Lymphocytes/100 WBC (Bld) 38.5 % 20.5-60.0 [facility] MCH Auto (RBC) [Entitic mass ]on 03-31-2024 MCH (RBC) [Entitic mass] 28.6 pg 26.7-34.0 [facility] MCHC Auto (RBC) [Mass/Vol]on 03-31-2024 MCHC (RBC) [Mass/Vol] 31.4 g/dL 29.9-35.2 [facility] MCV Auto (RBC) [Entitic vol] on 03-31-2024 MCV (RBC) [Entitic vol] 91.0 fL 81.0-99.0 [facility] Monocytes Auto (Bld) [#/Vol] on 03-31-2024 Monocytes (Bld) [#/Vol] 0.4 10 3/uL 0.3-0.8 [facility] Monocytes/100 WBC Auto (Bld) on 03-31-2024 Monocytes/100 WBC (Bld) 10.2 % 1.7-12.0 [facility] Neutrophils Auto (Bld) [#/Vo l]on 03-31-2024 Neutrophils (Bld) [#/Vol] 1.8 10 3/uL 1.4-6.5 [facility] Neutrophils/100 WBC Auto (Bl d)on 03-31-2024 Neutrophils/100 WBC (Bld) 44.0 % 43.0-75.0 [facility] No Panel Informationon 03-31 Eosinophils # (Auto) 0.2 10 3/uL 0.0-0.7 [facility] Immature Granulocyte # (Auto) 0.01 10 3/uL 0.00-0.03 [facility] Urine Random Creatinine <13.00 mg/dL Low 20.00-300.0 0 [facility] Urine Random Total Protein <6.0 mg/dL <=11.9 [facility] Platelet mean volume Auto (B ld) [Entitic vol]on 03-31-2024 Platelet mean volume (Bld) [Entitic vol] 10.0 fL 9.5-13.5 [facility] Platelets Auto (Bld) [#/Vol] on 03-31-2024 Platelets (Bld) [#/Vol] 323 10 3/uL 150-450 [facility] RBC Auto (Bld) [#/Vol]on RBC (Bld) [#/Vol] 4.13 10 6/uL Low 4.20-5.40 [facility] Serum or plasma albumin/glob ulin mass ratioon 03-31-2024 Albumin/Globulin [Mass ratio] 1.1 {ratio} [facility] Serum or plasma anion gap de terminationon 03-31-2024 Anion gap [Moles/Vol] 11.5 mmol/L [facility] Urine protein/creatinine rat ioon 03-31-2024 Protein/Creatinine (U) [Ratio] 0.00 [facility] Estimated glomerular filtrat ion rate (GFR) non- Americanon 01-31-2024 GFR/1.73 sq M.predicted among non-blacks MDRD (S/P/Bld) [Vol rate/Area] mL/min/{1.73_m2} >=60 [facility] - Chemistry and C hemistry - challengeon 01-31-2024 Calcium [Mass/Vol] 9.9 mg/dL 8.5-10.1 [facility] Chloride [Moles/Vol] 108 mmol/L High 98-107 [facility] CO2 [Moles/Vol] 25.0 mmol/L 21.0-32.0 [facility] Creatinine [Mass/Vol] 0.80 mg/dL 0.55-1.02 [facility] GFR/1.73 sq M.predicted MDRD (S/P/Bld) [Vol rate/Area] mL/min/{1.73_m2} >=60 [facility] Glucose [Mass/Vol] 85 mg/dL 74-106 [facility] Potassium [Moles/Vol] 4.4 mmol/L 3.5-5.1 [facility] Sodium [Moles/Vol] 143 mmol/L 136-145 [facility] Urea nitrogen [Mass/Vol] 26.0 mg/dL High 7.0-18.0 [facility] Urea nitrogen/Creatinine [Mass ratio] 32.5 mg/mg [facility] No Panel Informationon 01-30 25-Hydroxy Vitamin D Total 75.9 ng/mL [facility] Comment on above: <20 ng/mL Vit D defi cient20-<30 ng/mL Vit D yjisiaqdqiur85-916 ng/mL Vit D sufficient>100 ng/mL Potential Toxicity Serum or plasma anion gap de terminationon 01-31-2024 Anion gap [Moles/Vol] 14.4 mmol/L [facility] Alanine aminotransferase [En zymatic activity/volume] in Serum or PlasmaOrdered By: Barry Patel on 02-12-2023 ALT [Catalytic activity/Vol] 17 U/L 7-52 [facility] Albumin [Mass/volume] in Ser um or Plasma by Bromocresol green (BCG) dye binding methoOrdered By: Barry Patel on 02-12-2023 Albumin BCG dye [Mass/Vol] 4.0 g/dL 3.5-5.7 [facility] Alkaline phosphatase [Enzyma tic activity/volume] in Serum or PlasmaOrdered By: Barry Patel on 02-12-2023 ALP [Catalytic activity/Vol] 46 U/L 34-104 [facility] Aspartate aminotransferase [ Enzymatic activity/volume] in Serum or PlasmaOrdered By: Barry Patel on 02-12-2023 AST [Catalytic activity/Vol] 14 U/L 13-39 [facility] Basophils Auto (Bld) [#/Vol] Ordered By: Barry Patel on 02-12-2023 Basophils (Bld) [#/Vol] 0.1 10*3/uL 0.0-0.2 [facility] Basophils/100 WBC Auto (Bld) Ordered By: Barry Patel on 02-12-2023 Basophils/100 WBC (Bld) 2.1 % . [facility] Bilirubin.total [Mass/volume ] in Serum or PlasmaOrdered By: Barry Patel on 02-12-2023 Bilirubin [Mass/Vol] 0.4 mg/dL 0.3-1.0 [facility] Calcium [Mass/volume] in Ser um or PlasmaOrdered By: Barry Patel on 02-12-2023 Calcium [Mass/Vol] 9.6 mg/dL 8.6-10.3 [facility] Carbon dioxide, total [Moles /volume] in Serum or PlasmaOrdered By: Barry Patel on 02-12-2023 CO2 [Moles/Vol] 24.6 mmol/L 21.0-31.0 [facility] Chloride [Moles/volume] in S dulce or PlasmaOrdered By: Barry Patel on 02-12-2023 Chloride [Moles/Vol] 112 mmol/L 98-107 [facility] Creatinine [Mass/volume] in Serum or PlasmaOrdered By: Barry Patel on 02-12-2023 Creatinine [Mass/Vol] 0.78 mg/dL 0.60-1.20 [facility] Eosinophils Auto (Bld) [#/Vo l]Ordered By: Barry Patel on 02-12-2023 Eosinophils (Bld) [#/Vol] 0.5 10*3/uL 0.0-0.45 [facility] Eosinophils/100 WBC Auto (Bl d)Ordered By: Barry Patel on 02-12-2023 Eosinophils/100 WBC (Bld) 10.5 % . [facility] Erythrocyte distribution wid th Auto (RBC) [Ratio]Ordered By: Barry Patel on 02-12-2023 Erythrocyte distribution width (RBC) [Ratio] 14.7 % 11.9-15.3 [facility] Globulin Calc (S) [Mass/Vol] Ordered By: Barry Patel on 02-12-2023 Globulin (S) [Mass/Vol] 2.4 g/dL [facility] Glucose [Mass/volume] in Ser um or PlasmaOrdered By: Barry Patel on 02-12-2023 Glucose [Mass/Vol] 68 mg/dL 70-100 [facility] Hematocrit Auto (Bld) [Volum e fraction]Ordered By: Barry Patel on 02-12-2023 Hematocrit (Bld) [Volume fraction] 38.2 % 34.0-46.4 [facility] Hemoglobin [Mass/volume] in BloodOrdered By: Barry Patel on 02-12-2023 Hemoglobin (Bld) [Mass/Vol] 12.4 g/dL 11.8-15.4 [facility] Leukocytes [#/volume] correc ana for nucleated erythrocytes in Blood by Automated counOrdered By: Barry Patel on 02-12-2023 WBC corrected for nucl RBC Auto (Bld) [#/Vol] 4.6 10*3/uL 3.8-11.6 [facility] Lymphocytes Auto (Bld) [#/Vo l]Ordered By: Barry Patel on 02-12-2023 Lymphocytes (Bld) [#/Vol] 1.5 10*3/uL 1.00-4.8 [facility] Lymphocytes/100 WBC Auto (Bl d)Ordered By: Barry Patel on 02-12-2023 Lymphocytes/100 WBC (Bld) 31.3 % . [facility] MCH Auto (RBC) [Entitic mass ]Ordered By: Barry Patel on 02-12-2023 MCH (RBC) [Entitic mass] 29.7 pg 24.7-34.3 [facility] MCHC Auto (RBC) [Mass/Vol]Or dered By: Barry Patel on 02-12-2023 MCHC (RBC) [Mass/Vol] 32.5 g/dL 32.0-35.0 [facility] MCV Auto (RBC) [Entitic vol] Ordered By: Barry Patel on 02-12-2023 MCV (RBC) [Entitic vol] 91.4 fL 80-100 [facility] Monocytes Auto (Bld) [#/Vol] Ordered By: Barry Patel on 02-12-2023 Monocytes (Bld) [#/Vol] 0.5 10*3/uL 0.0-0.8 [facility] Monocytes/100 WBC Auto (Bld) Ordered By: Barry Patel on 02-12-2023 Monocytes/100 WBC (Bld) 9.9 % . [facility] Neutrophils Auto (Bld) [#/Vo l]Ordered By: Barry Patel on 02-12-2023 Neutrophils (Bld) [#/Vol] 2.1 10*3/uL 1.8-7.7 [facility] Neutrophils/100 WBC Auto (Bl d)Ordered By: Barry Patel on 02-12-2023 Neutrophils/100 WBC (Bld) 46.2 % . [facility] No Panel InformationOrdered By: Barry Patel on 02-12-2023 Estimated GFR (CKD-EPI) > 60.0 mL/Min [facility] Creatinine Clearance (Chem N/A [facility] Nucleated erythrocytes [Pres ence] in Blood by Automated countOrdered By: Barry Patel on 02-12-2023 Nucleated RBC Auto Ql (Bld) 0.0 /100{WBC} 0-0.5 [facility] Platelet mean volume Auto (B ld) [Entitic vol]Ordered By: Barry Patel on 02-12-2023 Platelet mean volume (Bld) [Entitic vol] 8.3 fL 6.3-10.7 [facility] Platelets Auto (Bld) [#/Vol] Ordered By: Barry Patel on 02-12-2023 Platelets (Bld) [#/Vol] 287 10*3/uL 150-450 [facility] Potassium [Moles/volume] in Serum or PlasmaOrdered By: Barry Patel on 02-12-2023 Potassium [Moles/Vol] 4.9 mmol/L 3.5-5.1 [facility] Protein [Mass/volume] in Ser um or PlasmaOrdered By: Barry Patel on 02-12-2023 Protein [Mass/Vol] 6.4 g/dL 6.4-8.9 [facility] RBC Auto (Bld) [#/Vol]Ordere d By: Barry Patel on 02-12-2023 RBC (Bld) [#/Vol] 4.18 10*6/uL 3.60-5.00 [facility] Serum or plasma albumin/glob ulin mass ratioOrdered By: Barry Patel on 02-12-2023 Albumin/Globulin [Mass ratio] 1.7 {ratio} [facility] Serum or plasma anion gap de terminationOrdered By: Barry Patel on 02-12-2023 Anion gap [Moles/Vol] 11.3 mmol/L 6.0-15.0 [facility] Sodium [Moles/volume] in Ser um or PlasmaOrdered By: Barry Patel on 02-12-2023 Sodium [Moles/Vol] 143 mmol/L 136-145 [facility] Urea nitrogen [Mass/volume] in Serum or PlasmaOrdered By: Barry Patel on 02-12-2023 Urea nitrogen [Mass/Vol] 24 mg/dL 7-25 [facility] WBC Auto (Bld) [#/Vol]Ordere d By: Barry Patel on 02-12-2023 WBC (Bld) [#/Vol] 4.6 10*3/uL 3.8-11.6 [facility] CBC AUTO DIFFon 11-17-2022 BASO # 0.0 103/ul Normal 0.0-0.1 [facility] Comment on above: Performed By: #### D ATCBC #### [facility] [address] [address] [address] Jackeline Thakkar Basophils/100 WBC (Bld) 0.8 % Normal 0.2-2.0 [facility] Comment on above: Performed By: #### D ATCBC #### [facility] [address] [address] [address] Jackeline Thakkar EO # 0.1 103/ul Normal 0.0-0.7 [facility] Comment on above: Performed By: #### D ATCBC #### [facility] [address] [place] [address] Dr. Jackeline Thakkar Eosinophils/100 WBC (Bld) 2.4 % Normal 0.9-7.0 [facility] Comment on above: Performed By: #### D ATCBC #### [facility] [address] [place] [address] Dr. Jackeline Thakkar Erythrocyte distribution width (RBC) [Ratio] 14.4 % Normal 11.0-15.0 [facility] Comment on above: Performed By: #### D ATCBC #### [facility] [address] [place] [address] Dr. Jackeline Thakkar Hematocrit (Bld) [Volume fraction] 40.8 % Normal 36.0-48.0 [facility] Comment on above: Performed By: #### D ATCBC #### [facility] [address] [place] [address] Dr. Jackeline Thakkar Hemoglobin (Bld) [Mass/Vol] 13.5 g/dL Normal 12.0-16.0 [facility] Comment on above: Performed By: #### D ATCBC #### [facility] [address] [place] [address] Dr. Jackeline Thakkar IG # 0.01 10e3/ul Normal 0.00-0.03 [facility] Comment on above: Performed By: #### D ATCBC #### [facility] [address] [place] [address] Dr. Jackeline Thakkar IG % 0.2 % Normal 0.0-0.5 [facility] Comment on above: Performed By: #### D ATCBC #### [facility] [address] [place] [address] Dr. Jackeline Thakkar LYMPH # 1.4 103/ul Normal 1.2-3.8 [facility] Comment on above: Performed By: #### D ATCBC #### [facility] [address] [place] [address] Dr. Jackeline Thakkar Lymphocytes/100 WBC (Bld) 29.2 % Normal 20.5-60.0 [facility] Comment on above: Performed By: #### D ATCBC #### [facility] [address] [place] [address] Dr. Jackeline Thakkar MCH (RBC) [Entitic mass] 30.1 pg Normal 26.7-34.0 [facility] Comment on above: Performed By: #### D ATCBC #### [facility] [address] [place] [address] Dr. Jackeline Thakkar MCHC (RBC) [Mass/Vol] 33.1 g/dL Normal 29.9-35.2 [facility] Comment on above: Performed By: #### D ATCBC #### [facility] [address] [address] [address] Jackeline Thakkar MCV (RBC) [Entitic vol] 91.1 fL Normal 81.0-99.0 [facility] Comment on above: Performed By: #### D ATCBC #### [facility] [address] [place] [address] Dr. Jackeline Thakkar MONO # 0.6 103/ul Normal 0.3-0.8 [facility] Comment on above: Performed By: #### D ATCBC #### [facility] [address] [place] [address] Dr. Jackeline Thakkar Monocytes/100 WBC (Bld) 11.4 % Normal 1.7-12.0 [facility] Comment on above: Performed By: #### D ATCBC #### [facility] [address] [place] [address] Dr. Jackeline Thakkar NEUT # 2.8 103/ul Normal 1.4-6.5 [facility] Comment on above: Performed By: #### D ATCBC #### [facility] [address] [place] [address] Dr. Jackeline Thakkar Neutrophils/100 WBC (Bld) 56.0 % Normal 43.0-75.0 [facility] Comment on above: Performed By: #### D ATCBC #### [facility] [address] [place] [address] Dr. Jackeline Thakkar Platelet mean volume (Bld) [Entitic vol] 9.8 fL Normal 9.5-13.5 [facility] Comment on above: Performed By: #### D ATCBC #### [facility] [address] [place] [address] Dr. Jackeline Thakkar PLT 352 103/ul Normal 150-450 [facility] Comment on above: Performed By: #### D ATCBC #### [facility] [address] [place] [address] Dr. Jackeline Thakkar RBC 4.48 106/ul Normal 4.20-5.40 [facility] Comment on above: Performed By: #### D ATCBC #### [facility] [address] [place] [address] Dr. Jackeline Thakkar WBC 4.9 103/ul Normal 4.0-11.0 [facility] Comment on above: Performed By: #### D ATCBC #### [facility] [address] [place] [address] Dr. Jackeline Thakkar RYLAN - VITAMIN Don 11-17-2022 VIT D 25-OH 70.3 ng/mL Normal [facility] Comment on above: Performed By: #### D SUMMER DATBMP #### [facility] [address] [place] [address] Dr. Jackeline Thakkar VIT D RANGES SEE BELOW Normal [facility] Comment on above: Result Comment: <20 ng/mL Vit D deficient 20 - <30 ng/mL Vit D insufficient 30 - 100 ng/mL Vit D sufficient >100 ng/mL Potential Toxicity Performed By: #### D SUMMER DATBMP #### [facility] [address] [place] [address] Dr. Jackeline Thakkar RYLAN- BMP WITH LIPIDon 2022 Anion gap [Moles/Vol] 13.4 mmol/L Normal [facility] Comment on above: Performed By: #### D SUMMER DATBMP #### [facility] [address] [place] [address] Dr. Jackeline Thakkar Calcium [Mass/Vol] 9.7 mg/dL Normal 8.5-10.1 [facility] Comment on above: Performed By: #### D SUMMER DATBMP #### [facility] [address] [place] [address] Dr. Jackeline Thakkar Chloride [Moles/Vol] 106 mmol/L Normal 98-107 [facility] Comment on above: Performed By: #### D SUMMER DATBMP #### [facility] [address] [place] [address] Dr. Jackeline Thakkar Cholesterol [Mass/Vol] 291 mg/dL Critically high <=200 [facility] Comment on above: Performed By: #### D ATVITD, DATBMP #### [facility] [address] [address] [address] Jackeline Thakkar Cholesterol in HDL [Mass/Vol] 70 mg/dL Critically high 40-60 [facility] Comment on above: Performed By: #### D ATVITD, DATBMP #### [facility] [address] [address] [address] Jackeline Thakkar Cholesterol in LDL [Mass/Vol] 193.6 mg/dL Normal [facility] Comment on above: Performed By: #### D ATVITD, DATBMP #### [facility] [address] [address] [address] Jackeline Thakkar CO2 [Moles/Vol] 20.9 mmol/L Critically low 21.0-32.0 [facility] Comment on above: Performed By: #### D ATVITD, DATBMP #### [facility] [address] [address] [address] Jackeline Thakkar Creatinine [Mass/Vol] 0.75 mg/dL Normal 0.55-1.02 [facility] Comment on above: Performed By: #### D ATVITD, DATBMP #### [facility] [address] [place] [address] Dr. Jackeline Thakkar EGFR-AF ETHIOPIAN >60 Normal >=60 [facility] Comment on above: Performed By: #### D ATVITD, DATBMP #### [facility] [address] [address] [address] Jackeline Thakkar EGFR-NON AF ETHIOPIAN >60 Normal >=60 [facility] Comment on above: Performed By: #### D ATVITD, DATBMP #### [facility] [address] [address] [address] Jackeline Thakkar Glucose [Mass/Vol] 104 mg/dL Normal 74-106 [facility] Comment on above: Performed By: #### D ATVITD, DATBMP #### [facility] [address] [address] [address] Jackeline Thakkar HDL NORMAL > or = 60 mg/dl - LO W CARDIOVASCULAR RISK <40 mg/dl - HIGH CARDIOVASCULAR RISK Normal [facility] Comment on above: Performed By: #### D SUMMER DATBMP #### [facility] [address] [place] [address] Dr. Jackeline Thakkar LDL CALC NORMAL SEE BELOW Normal [facility] Comment on above: Result Comment: <100 mg/dl OPTIMAL 100 - 129 mg/dl NEAR OR ABOVE OPTIMAL 130 - 159 mg/dl BORDERLINE HIGH 160 - 189 mg/dl HIGH >190 mg/dl VERY HIGH Performed By: #### D ATJEFF, DATBMP #### [facility] [address] [place] [address] Dr. Jackeline Thakkar Potassium [Moles/Vol] 4.3 mmol/L Normal 3.5-5.1 [facility] Comment on above: Performed By: #### D SUMMER DATBMP #### [facility] [address] [place] [address] Dr. Jackeline Thakkar Sodium [Moles/Vol] 136 mmol/L Normal 136-145 [facility] Comment on above: Performed By: #### D SUMMER DATBMP #### [facility] [address] [place] [address] Dr. Jackeline Thakkar Triglyceride [Mass/Vol] 137 mg/dL Normal <=150 [facility] Comment on above: Performed By: #### D SUMMER DATBMP #### [facility] [address] [place] [address] Dr. Jackeline Thakkar Urea nitrogen [Mass/Vol] 30.0 mg/dL Critically high 7.0-18.0 [facility] Comment on above: Performed By: #### D SUMMER DATBMP #### [facility] [address] [place] [address] Dr. Jackeline Thakkar Urea nitrogen/Creatinine [Mass ratio] 40.0 mg/mg Normal [facility] Comment on above: Performed By: #### D SUMMER DATBMP #### [facility] [address] [place] [address] Dr. Jackeline Thakkar VLDL CALC 27.4 mg/dL Normal [facility] Comment on above: Performed By: #### D ATVITD, DATBMP #### [facility] [address] [place] [address] Dr. Jackeline Thakkar XR hip RT min 2V(w/wo pelvis )*on 10-29-2022 XR hip RT min 2V(w/wo pelvis)* [facility] [employer] Other XR hip RT min 2V(w/wo pelvis)* [facility] [employer] Other XR hip RT min 2V(w/wo pelvis)* [address] [place] [address] [employer] Other XR hip RT min 2V(w/wo pelvis)* [place] [address] [employer] Other XR hip RT min 2V(w/wo pelvis)* XRay Report [employer] Other XR hip RT min 2V(w/wo pelvis)* Signed [employer] Other XR hip RT min 2V(w/wo pelvis)* Patient: Tiana Louis MR#: [id number] [employer] Other XR hip RT min 2V(w/wo pelvis)* : 1945 Acct:[id number] [employer] Other XR hip RT min 2V(w/wo pelvis)* Age/Sex: 77 / F ADM Date: 10/29/22 [employer] Other XR hip RT min 2V(w/wo pelvis)* Loc: [facility] Room: Type: [facility] [employer] Other XR hip RT min 2V(w/wo pelvis)* Attending Dr: Barry Valenzuela MD [employer] Other XR hip RT min 2V(w/wo pelvis)* Copies to: Barry Valenzuela MD [employer] Other XR hip RT min 2V(w/wo pelvis)* Ordering Provider: Barry Valenzuela MD [employer] Other XR hip RT min 2V(w/wo pelvis)* Date of Service: 10/29/22 [employer] Other XR hip RT min 2V(w/wo pelvis)* XR/XR hip RT min 2V(w/wo pelvis)*: Bilateral sacroiliitis [employer] Other XR hip RT min 2V(w/wo pelvis)* RIGHT HIP - 2 views: [employer] Other XR hip RT min 2V(w/wo pelvis)* CLINICAL HISTORY: Low back pain radiating into right hip and groin. 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 Please note that the femoral hardware is incompletely visualized on today's study. [employer] Other XR hip RT min 2V(w/wo pelvis)* Additional hardware is seen at the lumbosacral junction without evidence of hardware complication. [employer] Other XR hip RT min 2V(w/wo pelvis)* Degenerative changes are noted involving the SI joints. Left hip appears unremarkable. No acute [employer] Other XR hip RT min 2V(w/wo pelvis)* bony process. [employer] Other XR hip RT min 2V(w/wo pelvis)* XR/XR hip RT min 2V(w/wo pelvis)* [employer] Other XR hip RT min 2V(w/wo pelvis)* IMPRESSION: [employer] Other XR hip RT min 2V(w/wo pelvis)* NO ACUTE BONY PROCESS OR EVIDENCE OF HARDWARE COMPLICATION.. [employer] Other XR hip RT min 2V(w/wo pelvis)* Impression dictated by: Mir Delong Jr., D.ORoberto10/29/2022 3:09 PM [employer] Other XR hip RT min 2V(w/wo pelvis)* Dictation Location: RADIO-PC-14 [employer] Other XR hip RT min 2V(w/wo pelvis)* Transcribed By: PWS 10/29/22 1508 [employer] Other XR hip RT min 2V(w/wo pelvis)* Dictated By: Mir Delong Jr, DO 10/29/22 1508 [employer] Other XR hip RT min 2V(w/wo pelvis)* Signed By: [employer] Other XR hip RT min 2V(w/wo pelvis)* 10/29/22 4876 [employer] Other Creatinine (Bld) [Mass/Vol]O rdered By: Benigno Kennedy on 08-27-2022 Creatinine [Mass/Vol] 0.7 mg/dL 0.6-1.3 [facility] Comment on above: ER/ESD physician is notified/shown all ISTAT results.Critical values may be confirmed by laboratory testing ifdeemed necessary by ER attending doctor. No Panel InformationOrdered By: Benigno Kennedy on 08-27-2022 POC Estimated GFR > 60 [facility] Comment on above: GFR estimated refere nce range: According to KDOQI guidelines, <60 ml/min/1.73m2 is sufficient to diagnose a patient with chronic kidney disease. POC Estimated GFR Non- Amer > 60 [facility] TSHon 06-22-2022 TSH 2.766 uIU/mL Normal 0.358-3.740 [facility] Comment on above: Performed By: #### T SH #### [facility] [address] [address] [address] Jackeline Thakkar VIT D 25-OH [facility]Pon 2021 Vitamin D, 25-Hydroxy 50.3 ng/mL Normal 30.0-100.0 [facility] Comment on above: Result Comment: Shakira min D deficiency has been defined by the [place] [employer] and an Endocrine Society practice guideline as a level of serum 25-OH vitamin D less than 20 ng/mL (1,2). The Endocrine Society went on to further define vitamin D insufficiency as a level between 21 and 29 ng/mL (2). 1. IOM ([place] [employer]). 2010. Dietary reference intakes for calcium and D. [place]: The National Academies Press. 2. Lolly MF, Raven ESTES, Kitty RAMACHANDRAN, et al. Evaluation, treatment, and prevention of vitamin D deficiency: an Endocrine Society clinical practice guideline. JCEM. 2010; 96(7):1911-30. Performed By: #### V ITADLC #### [facility] [address] [place] [address] Dr. Jackeline Thakkar PROF CHEM 8 (BAS METB)on Anion gap [Moles/Vol] 12.3 mmol/L Normal [facility] Comment on above: Performed By: #### B MP #### [facility] [address] [place] [address] Dr. Jackeline Thakkar Calcium [Mass/Vol] 9.0 mg/dL Normal 8.5-10.1 [facility] Comment on above: Performed By: #### B MP #### [facility] [address] [address] [address] Jackeline Thakkar Chloride [Moles/Vol] 106 mmol/L Normal 98-107 [facility] Comment on above: Performed By: #### B MP #### [facility] [address] [address] [address] Jackeline Thakkar CO2 [Moles/Vol] 26.5 mmol/L Normal 21.0-32.0 [facility] Comment on above: Performed By: #### B MP #### [facility] [address] [address] [address] Jackeline Thakkar Creatinine [Mass/Vol] 0.83 mg/dL Normal 0.55-1.02 [facility] Comment on above: Performed By: #### B MP #### [facility] [address] [address] [address] Jackeline Thakkar EGFR-AF ETHIOPIAN >60 Normal >=60 [facility] Comment on above: Performed By: #### B MP #### [facility] [address] [address] [address] Jackeline Thakkar EGFR-NON AF ETHIOPIAN >60 Normal >=60 [facility] Comment on above: Performed By: #### B MP #### [facility] [address] [place] [address] Dr. Jackeline Thakkar Glucose [Mass/Vol] 92 mg/dL Normal 74-106 [facility] Comment on above: Performed By: #### B MP #### [facility] [address] [place] [address] Dr. Jackeline Thakkar Potassium [Moles/Vol] 3.8 mmol/L Normal 3.5-5.1 [facility] Comment on above: Performed By: #### B MP #### [facility] [address] [place] [address] Dr. Jackeline Thakkar Sodium [Moles/Vol] 141 mmol/L Normal 136-145 [facility] Comment on above: Performed By: #### B MP #### [facility] [address] [address] [address] Jackeline Thakkar Urea nitrogen [Mass/Vol] 13.0 mg/dL Normal 7.0-18.0 [facility] Comment on above: Performed By: #### B MP #### [facility] [address] [place] [address] Dr. Jackeline Thakkar Urea nitrogen/Creatinine [Mass ratio] 15.7 mg/mg Normal [facility] Comment on above: Performed By: #### B MP #### [facility] [address] [place] [address] Dr. Jackeline Thakkar CNOVon 04-11-2018 CNOV Office Visit (PULMAV) TIANA BOYLE ([id number]) 1945 [facility] Time Provider Department04/11/18 9:30 AM RENATA YADAV PULMAV During your visit today, we recorded the following information about you: Pulse Respiration Blood pressure Weight 64/minute 12/minute 144/71 96.5 kg Height 1.626 Nate Yadav MD 04/11/2018 11:13 AM SignedConsultation requested by Alexander Marte for an opinion regarding Chronic cough [...] course of antibiotics. She wasalso seen by Paving Supervisor Dr. CARRASCO, I have reviewed his notes( [...] itShe is retired, lives with her in [place]. 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 [...] obstructive pulmonary disease, unspecified COPD type ([facility])(Z87.891) Former smokerPlan:SPIROMETRY WITH DILATOR IF [...] results and coordinating care.Referring Provider: CHUCHO SARAVIA [[id number]]Allergies As of Date: 04/11/2018(No Known Allergies)Date Reviewed: 04/11/2018Reviewed by: Zoila Santa (Tech) - Fully AssessedReason for Visit: New Patient [172] Cough [28] Shortness of Breath [227]Primary Visit Diagnosis:Chronic cough [R05] Other Visit Diagnoses:Chronic obstructive pulmonary disease, unspecified COPD type (HCC) [J44.9] Former smoker [Z87.891]Order(s):PULMI OTTONIEL FLEXHALER 180 mcg/actuation aepbInhale 1 Puff as instructed twice daily.Disp: 1 InhalerRfl: 3 SPIROMETRY WITH DILATOR IF OBSTRUCTED [9789010] Order #: [id number] FUTURE LUNG DIFFUSION CAPACITY (DLCO) [2730719] Order #: [id number] FUTURE roflumilast (DALIRESP) 250 mcg tabTake 250 [...] on file.Follow-up and Disposition History RecordedEncounter Number: [id number] Status:Closed by RENATA YADAV MD on 04/11/18 [facility] 04-11-2018 CNPN Telephone (PULMAV) TIANA BOYLE ([id number]) 1945 FDate Time Provider Department04/11/18 RENATA YADAV PULRONNY During your visit today, we recorded the following information about you:Kiesha Hairston, RN, RN 04/11/2018 3:38 PM SignedPt just seen in the office todayCalling to inform the prescriptions for Pulmicort and Roflumilast never made itto her PharmacyAsking if these can be RESENT pleaseVerified correct pharmacy is [facility] RdIf needed pt's call back # [phone] Andrews Lenin 04/11/2018 3:56 PM SignedJust completed PA for Daliresp. Waiting on response. Please advise aboutPulmicort. According to med list it was only a med update.Kay Pérez Lenin 04/11/2018 4:28 PM SignedPA was approved. Called and informed pt.Kay Pérez Leda Dasilva RN 04/12/2018 10:59 AM SignedPatient calling back- asking about her pulmicort prescriptionStates directions were changed but she is still using it?Correct pharmacy Lisandra Yadav MD 04/12/2018 11:47 AM SignedShe is taking 1 puff 2 times/.day.New prescription Dorene Diez Pérez Ma 04/12/2018 12:01 PM SignedCalled and informed pt of below message.Kay Zapienbrian As of Date: 04/11/2018(No Known Allergies)Date Reviewed: 04/11/2018Reviewed by: Denice (Zoila Pollack - Fully AssessedReason for Visit: Medication Issue [...] by RENATA YADAV MD on 04/12/18 [facility] PROGRESSon 04-11-2018 Protein HNO ID: [id number]: Renata SuriService: (none)Author Type: PhysicianType: Progress NotesFiled: 04/11/2018 11:13 AMNote Text:Consultation requested by Alexander Marte for an opinion regarding Chronic coughand [...] course ofantibiotics. She was also seen by Paving Supervisor Dr. CARRASCO, I havereviewed his notes( IGE [...] year and started on C Pap shereports sanaz to itShe is retired, lives with her in [place]. sHE used to work in [employer], [employer]. 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 [facility] SR-CT CHEST W CON IMPORTon 0 12-29-2017 SR-CT CHEST W CON IMPORT Images were obtained outside of [facility] [id number] [facility] OT-XR CHEST 2 V IMPORTon OT-XR CHEST 2 V IMPORT Images were obtai donald outside of [facility] [id number] [facility] OT-XR CHEST 2 V IMPORTon OT-XR CHEST 2 V IMPORT Images were obtai donald outside of [facility] [id number] [facility] OT-XR CHEST 2 V IMPORTon OT-XR CHEST 2 V IMPORT Images were obtai donald outside of [facility] [id number] [facility] Vital Signs Date Time Vital Sign Value Performing Clinician Facility 05-16-2025 12:29-0400 Diastolic blood pressure 77 mm[Hg] Chucho [email or web address] DO Work Phone: [facility] 05-16-2025 12:29-0400 Systolic blood pressure 154 mm[Hg] Chucho [email or web address] DO Work Phone: [facility] 03-19-2025 11:37-0400 Body height 165.1 cm Lauro HARVEYM Work Phone: [facility] 03-19-2025 11:37-0400 Body mass index (BMI) [Ratio] 29.95 kg/m2 Lauro HARVEYM Work Phone: [facility] 03-19-2025 11:37-0400 Body weight 81.65 kg Lauro Brown DPM Work Phone: [facility] 03-19-2025 11:37-0400 Respiratory rate 18 /min Lauro Todd DPM Work Phone: [facility] 01-01-2025 11:40-0400 Diastolic blood pressure 74 mm[Hg] Chucho Ball DO Work Phone: [facility] 01-01-2025 11:40-0400 Systolic blood pressure 122 mm[Hg] Chucho Ball DO Work Phone: [facility] 12-27-2024 09:12-0400 Body height 165.1 cm Chucho Ball DO Work Phone: [facility] 12-27-2024 09:12-0400 Body mass index (BMI) [Ratio] 30.4 kg/m2 Chucho Ball DO Work Phone: [facility] 12-27-2024 09:12-0400 Body weight 83.06 kg Chucho Ball DO Work Phone: [facility] 12-27-2024 09:12-0400 Diastolic blood pressure 74 mm[Hg] Chucho Ball DO Work Phone: [facility] 12-27-2024 09:12-0400 Heart rate 66 /min Chucho Ball DO Work Phone: [facility] 12-27-2024 09:12-0400 Respiratory rate 12 /min Chucho Ball DO Work Phone: [facility] 12-27-2024 09:12-0400 SaO2% (BldA) [Mass fraction] 98 % Chucho Ball DO Work Phone: [facility] 12-27-2024 09:12-0400 Systolic blood pressure 121 mm[Hg] Chucho Ball DO Work Phone: [facility] 09-07-2024 10:05-0500 Body height 165.1 cm Chucho Ball DO Work Phone: [facility] 09-07-2024 10:05-0500 Body mass index (BMI) [Ratio] 30.9 kg/m2 Chucho Ball DO Work Phone: [facility] 09-07-2024 10:05-0500 Body weight 84.36 kg Chucho Ball DO Work Phone: [facility] 09-07-2024 10:05-0500 Diastolic blood pressure 86 mm[Hg] Chucho Ball DO Work Phone: [facility] 09-07-2024 10:05-0500 Heart rate 56 /min Chucho Ball DO Work Phone: [facility] 09-07-2024 10:05-0500 SaO2% (BldA) [Mass fraction] 96 % Chucho Ball DO Work Phone: [facility] 09-07-2024 10:05-0500 Systolic blood pressure 146 mm[Hg] Chucho Ball DO Work Phone: [facility] 08-21-2024 10:37-0500 Body height 165.1 cm Chucho Ball DO Work Phone: [facility] 08-21-2024 10:37-0500 Body mass index (BMI) [Ratio] 31.1 kg/m2 Chucho Ball DO Work Phone: [facility] 08-21-2024 10:37-0500 Body weight 85 kg Chucho Ball DO Work Phone: [facility] 06-26-2024 10:59-0400 Body height 165.1 cm DO Chucho Ball Work Phone: [facility] 06-26-2024 10:59-0400 Body mass index (BMI) [Ratio] 31.2 kg/m2 DO Chucho Ball Work Phone: [facility] 06-26-2024 10:59-0400 Body weight 85.27 kg DO Chucho Ball Work Phone: [facility] 06-26-2024 10:59-0400 Diastolic blood pressure 87 mm[Hg] DO Chucho Ball Work Phone: [facility] 06-26-2024 10:59-0400 Heart rate 57 /min DO Chucho Ball Work Phone: [facility] 06-26-2024 10:59-0400 Respiratory rate 12 /min DO Chucho Ball Work Phone: [facility] 06-26-2024 10:59-0400 Systolic blood pressure 138 mm[Hg] DO Chucho Ball Work Phone: [facility] 03-31-2024 09:32-0400 Body height 165.1 cm [facility] 03-31-2024 09:32-0400 Body mass index (BMI) [Ratio] 30.9 kg/m2 [facility] 03-31-2024 09:32-0400 Body weight 84.42 kg [facility] 03-31-2024 09:32-0400 Diastolic blood pressure 73 mm[Hg] [facility] 03-31-2024 09:32-0400 Heart rate 52 /min [facility] 03-31-2024 09:32-0400 Respiratory rate 16 /min [facility] 03-31-2024 09:32-0400 Systolic blood pressure 147 mm[Hg] [facility] 01-14-2024 09:45-0400 Body height 165.1 cm DO Chucho Ball Work Phone: [facility] 01-14-2024 09:45-0400 Body mass index (BMI) [Ratio] 30.4 kg/m2 DO Chucho Ball Work Phone: [facility] 01-14-2024 09:45-0400 Body weight 82.8 kg DO Chucho Ball Work Phone: [facility] 01-14-2024 09:45-0400 Diastolic blood pressure 88 mm[Hg] DO Chucho Ball Work Phone: [facility] 01-14-2024 09:45-0400 Heart rate 67 /min DO Chucho Ball Work Phone: [facility] 01-14-2024 09:45-0400 Respiratory rate 20 /min DO Chucho Ball Work Phone: [facility] 01-14-2024 09:45-0400 Systolic blood pressure 157 mm[Hg] DO Chucho Ball Work Phone: [facility] 12-21-2023 10:46-0400 Body height 165.1 cm DO Chucho Ball Work Phone: [facility] 12-21-2023 10:46-0400 Body mass index (BMI) [Ratio] 30.4 kg/m2 DO Chucho Ball Work Phone: [facility] 12-21-2023 10:46-0400 Body weight 83 kg DO Chucho Ball Work Phone: [facility] 12-21-2023 10:46-0400 Diastolic blood pressure 83 mm[Hg] DO Chucho Ball Work Phone: [facility] 12-21-2023 10:46-0400 Heart rate 69 /min DO Chucho Ball Work Phone: [facility] 12-21-2023 10:46-0400 Respiratory rate 16 /min DO Chucho Ball Work Phone: [facility] 12-21-2023 10:46-0400 Systolic blood pressure 158 mm[Hg] DO Chucho Ball Work Phone: [facility] 11-03-2023 08:00-0500 Body height 165.1 cm Coy Eren II Other [employer] Other 11-03-2023 08:00-0500 Body mass index (BMI) [Ratio] 30.45 kg/m2 Coy Logan II Other [employer] Other 11-03-2023 08:00-0500 Body weight 83.01 kg Coy Eren II Other [employer] Other 10-04-2023 13:30-0500 Body height 165.1 cm DO Chucho Ball Work Phone: [facility] 10-04-2023 13:30-0500 Body weight 83 kg DO Chucho Ball Work Phone: [facility] 10-04-2023 13:30-0500 Diastolic blood pressure 74 mm[Hg] DO Chucho Ball Work Phone: [facility] 10-04-2023 13:30-0500 Systolic blood pressure 130 mm[Hg] DO Chucho Ball Work Phone: [facility] 02-24-2023 11:50-0400 Diastolic blood pressure 81 mm[Hg] DO Chucho Ball Work Phone: [facility] 02-24-2023 11:50-0400 Heart rate 62 /min DO Chucho Ball Work Phone: [facility] 02-24-2023 11:50-0400 Respiratory rate 16 /min DO Chucho Ball Work Phone: [facility] 02-24-2023 11:50-0400 SaO2% (BldA) [Mass fraction] 95 % DO Chucho Ball Work Phone: [facility] 02-24-2023 11:50-0400 Systolic blood pressure 154 mm[Hg] DO Chucho Ball Work Phone: [facility] 02-24-2023 11:35-0400 Inhaled oxygen flow rate 1 L/min DO Chucho Ball Work Phone: [facility] 02-24-2023 10:54-0400 Body temperature 97 [degF] DO Chucho Ball Work Phone: [facility] 02-24-2023 08:22-0400 Body height 160.02 cm DO Chucho Ball Work Phone: [facility] 02-24-2023 08:22-0400 Body mass index (BMI) [Ratio] 32.9 kg/m2 DO Chucho Ball Work Phone: [facility] 02-24-2023 08:22-0400 Body weight 84.4 kg DO Cuhcho Ball Work Phone: [facility] 02-09-2023 10:00-0400 Body height 165.1 cm Barry Olexa Other [employer] Other 01-25-2023 14:45-0400 Body height 165.1 cm Barry Olexa Other [employer] Other 01-25-2023 14:45-0400 Body mass index (BMI) [Ratio] 30.78 kg/m2 Barry Olexa Other [employer] Other 01-25-2023 14:45-0400 Body weight 83.92 kg Barry Olexa Other [employer] Other 12-14-2022 11:00-0400 Body height 165.1 cm Chucho Ball Other [employer] Other 12-14-2022 11:00-0400 Body mass index (BMI) [Ratio] 30.82 kg/m2 Chucho Ball Other [employer] Other 12-14-2022 11:00-0400 Body weight 84.01 kg Chucho Ball Other [employer] Other 12-14-2022 11:00-0400 Diastolic blood pressure 84 mm[Hg] Chucho Ball Other [employer] Other 12-14-2022 11:00-0400 Respiratory rate 20 /min Chucho Ball Other [employer] Other 12-14-2022 11:00-0400 Systolic blood pressure 122 mm[Hg] Chucho Ball Other [employer] Other 10-29-2022 11:30-0500 Body height 165.1 cm Barry Felter Other [employer] Other 10-29-2022 11:30-0500 Body mass index (BMI) [Ratio] 30.78 kg/m2 Barry Felter Other [employer] Other 10-29-2022 11:30-0500 Body weight 83.92 kg Barry Felter Other [employer] Other 10-23-2022 10:40-0500 Body height 165.1 cm Benigno Kennedy Other [employer] Other 10-23-2022 10:40-0500 Body mass index (BMI) [Ratio] 30.78 kg/m2 Benigno Kennedy Other [employer] Other 10-23-2022 10:40-0500 Body weight 83.92 kg Benigno Kennedy Other [employer] Other 08-27-2022 07:00-0500 Body height 162.56 cm DO Chucho Ball Work Phone: [facility] 08-27-2022 07:00-0500 Body weight 81.64 kg DO Chucho Ball Work Phone: [facility] 08-18-2022 11:20-0500 Body height 165.1 cm Benigno Kennedy Other [employer] Other 03-11-2022 12:00-0400 Body height 165.1 cm Barry Felter Other [employer] Other 03-11-2022 12:00-0400 Body mass index (BMI) [Ratio] 30.28 kg/m2 Barry Felter Other [employer] Other 03-11-2022 12:00-0400 Body weight 82.56 kg Barry Felter Other [employer] Other 02-17-2022 12:20-0400 Body height 165.1 cm Benigno Kennedy Other [employer] Other 02-17-2022 12:20-0400 Body mass index (BMI) [Ratio] 30.28 kg/m2 Benigno Kennedy Other [employer] Other 02-17-2022 12:20-0400 Body weight 82.56 kg Benigno Kennedy Other [employer] Other 01-05-2022 10:45-0400 Body height 165.1 cm Barry Felter Other [employer] Other 01-05-2022 10:45-0400 Body mass index (BMI) [Ratio] 31.28 kg/m2 Barry Felter Other [employer] Other 01-05-2022 10:45-0400 Body weight 85.28 kg Barry Felter Other [employer] Other 11-07-2021 09:20-0500 Body height 165.1 cm Benigno Kennedy Other [employer] Other 11-07-2021 09:20-0500 Body mass index (BMI) [Ratio] 31.45 kg/m2 Benigno Kennedy Other [employer] Other 11-07-2021 09:20-0500 Body weight 85.73 kg Benigno Kennedy Other [employer] Other 11-03-2021 11:15-0500 Body height 165.1 cm Barry Felter Other [employer] Other 11-03-2021 11:15-0500 Body mass index (BMI) [Ratio] 31.45 kg/m2 Barry Valenzuela Other [employer] Other 11-03-2021 11:15-0500 Body weight 85.73 kg Barry Valenzuela Other [employer] Other 09-18-2021 16:20-0500 Body height 165.1 cm Benigno Kennedy Other [employer] Other 09-18-2021 16:20-0500 Body mass index (BMI) [Ratio] 31.61 kg/m2 Benigno Kennedy Other [employer] Other 09-18-2021 16:20-0500 Body weight 86.18 kg Benigno Kennedy Other [employer] Other 09-18-2021 16:20-0500 Diastolic blood pressure 75 mm[Hg] Benigno Kennedy Other [employer] Other 09-18-2021 16:20-0500 Systolic blood pressure 129 mm[Hg] Benigno Kennedy Other [employer] Other 09-11-2021 11:45-0500 Body height 165.1 cm Barry Valenzuela Other [employer] Other 09-11-2021 11:45-0500 Body mass index (BMI) [Ratio] 31.61 kg/m2 Barry Valenzuela Other [employer] Other 09-11-2021 11:45-0500 Body weight 86.18 kg Barry Valenzuela Other [employer] Other 09-02-2021 15:00-0500 Body height 165.1 cm Barry Valenzuela Other [employer] Other 09-02-2021 15:00-0500 Body mass index (BMI) [Ratio] 31.61 kg/m2 Barry Valenzuela Other [employer] Other 09-02-2021 15:00-0500 Body weight 86.18 kg Barry Valenzuela Other [employer] Other 08-14-2021 17:30-0500 Body height 165.1 cm Benigno Kennedy Other [employer] Other 08-14-2021 17:30-0500 Body mass index (BMI) [Ratio] 29.95 kg/m2 Benigno Kennedy Other [employer] Other 08-14-2021 17:30-0500 Body weight 81.65 kg Benigno Kennedy Other [employer] Other Encounters Encounter Date Encounter Type Care Provider Facility Start: 05-31-2025 End: 05-31-2025 ambulatory Chucho Ball DO Work Phone: [facility] Work Phone: Start: 05-31-2025 End: 05-31-2025 Patient encounter procedure Barry Alvarado MD -[facility] Work Phone: Start: 05-30-2025 End: 05-30-2025 ambulatory Chucho Ball DO Work Phone: [facility] Work Phone: Start: 05-30-2025 End: 05-30-2025 Patient encounter procedure Apryl Mclean MD -[facility] Work Phone: Start: 05-16-2025 End: 05-16-2025 ambulatory Chucho Ball DO Work Phone: [facility] Work Phone: Start: 05-16-2025 End: 05-16-2025 Patient encounter procedure Coy Mcbride MD -[facility] Work Phone: Start: 05-08-2025 Non-patient / Non-visit Chucho dexter DO -[facility] Work Phone: Start: 05-03-2025 End: 05-03-2025 ambulatory Chucho Ball DO Work Phone: [facility] Work Phone: Start: 05-03-2025 End: 05-03-2025 Patient encounter procedure Mouna Rees APRN [facility] Work Phone: Start: 04-30-2025 End: 04-30-2025 ambulatory Chucho Ball DO Work Phone: [facility] Work Phone: Start: 04-30-2025 End: 04-30-2025 Patient encounter procedure Barry Alvarado MD -[facility] Work Phone: Start: 04-16-2025 End: 04-16-2025 ambulatory Chucho Ball DO Work Phone: [facility] Work Phone: Start: 04-16-2025 End: 04-16-2025 Patient encounter procedure Apryl Mclean MD -[facility] Work Phone: Start: 03-28-2025 End: 03-28-2025 ambulatory Chucho Ball DO Work Phone: [facility] Work Phone: Start: 03-28-2025 End: 03-28-2025 Patient encounter procedure Barry Alvarado MD -[facility] Work Phone: Start: 03-26-2025 End: 03-26-2025 ambulatory Chucho Ball DO Work Phone: [facility] Work Phone: Start: 03-26-2025 End: 03-26-2025 Patient encounter procedure Chucho Ball DO -[facility] Work Phone: Start: 03-19-2025 End: 03-19-2025 Bamboo flowsheet Lauro Todd DPM Work Phone: [facility] Start: 03-19-2025 End: 03-19-2025 Bamboo flowsheet Lauro Todd DPM Work Phone: [facility] Start: 03-19-2025 End: 03-19-2025 ambulatory LAURO TODD Not Available Start: 03-19-2025 End: 03-19-2025 Office outpatient visit 15 minutes Lauro Todd DPM Work Phone: [facility] Comment on above: Other polyneuropathy (Primary Dx); Pain due to onychomycosis of toenails of both feet Start: 02-21-2025 End: 02-21-2025 ambulatory Chucho Ball DO Work Phone: [facility] Work Phone: Start: 02-21-2025 End: 02-21-2025 Patient encounter procedure Chucho Ball DO Work Phone: [facility] Work Phone: Start: 02-20-2025 End: 02-20-2025 ambulatory Chucho Ball DO Work Phone: [facility] Work Phone: Start: 02-20-2025 End: 02-20-2025 Patient encounter procedure Chucho Ball DO Work Phone: [facility] Work Phone: Start: 01-25-2025 End: 01-25-2025 ambulatory Chucho Ball DO Work Phone: [facility] Work Phone: Start: 01-25-2025 End: 01-25-2025 Patient encounter procedure Chucho Ball DO Work Phone: [facility] Work Phone: Start: 01-15-2025 End: 01-15-2025 ambulatory Chucho Ball DO Work Phone: [facility] Work Phone: Start: 01-15-2025 End: 01-15-2025 Patient encounter procedure Chucho Ball DO Work Phone: [facility] Work Phone: Start: 01-01-2025 End: 01-01-2025 ambulatory Chucho Ball DO Work Phone: [facility] Work Phone: Start: 01-01-2025 End: 01-01-2025 Patient encounter procedure Chucho Ball DO Work Phone: [facility] Work Phone: Start: 01-01-2025 End: 01-01-2025 Patient encounter procedure Chucho Ball DO Work Phone: [facility] Start: 01-01-2025 End: 01-01-2025 ambulatory Chucho Ball DO Work Phone: [facility] Work Phone: Start: 12-28-2024 End: 12-28-2024 ambulatory Chucho Ball DO Work Phone: [facility] Work Phone: Start: 12-28-2024 End: 12-28-2024 Patient encounter procedure Chucho Ball DO Work Phone: [facility] Work Phone: Start: 12-27-2024 End: 12-27-2024 ambulatory Chucho Ball DO Work Phone: [facility] Work Phone: Start: 12-27-2024 End: 12-27-2024 Patient encounter procedure Chucho Ball DO Work Phone: [facility] Work Phone: Start: 12-21-2024 Non-patient / Non-visit Benjam in Ball DO Work Phone: [facility] Work Phone: Start: 12-12-2024 End: 12-12-2024 ambulatory Chucho Ball DO Work Phone: [facility] Work Phone: Start: 12-12-2024 End: 12-12-2024 Patient encounter procedure Chucho Ball DO Work Phone: [facility] Work Phone: Start: 11-29-2024 End: 11-29-2024 ambulatory Chucho Ball DO Work Phone: [facility] Work Phone: Start: 11-29-2024 End: 11-29-2024 Patient encounter procedure Chucho Ball DO Work Phone: [facility] Work Phone: Start: 11-13-2024 End: 11-13-2024 ambulatory Chucho Ball DO Work Phone: [facility] Work Phone: Start: 11-13-2024 End: 11-13-2024 Patient encounter procedure Chucho Ball DO Work Phone: [facility] Work Phone: Start: 11-10-2024 Non-patient / Non-visit Benjam in Ball DO Work Phone: [facility] Work Phone: Start: 11-02-2024 End: 11-02-2024 ambulatory Chucho Ball DO Work Phone: [facility] Work Phone: Start: 11-02-2024 End: 11-02-2024 Patient encounter procedure Chucho Ball DO Work Phone: [facility] Work Phone: Start: 10-16-2024 End: 10-16-2024 ambulatory Chucho Ball DO Work Phone: [facility] Work Phone: Start: 10-16-2024 End: 10-16-2024 Discharged Recurring Chucho Ball DO Work Phone: [facility] [place] Start: 10-02-2024 End: 10-02-2024 ambulatory Chucho Ball DO Work Phone: [facility] Work Phone: Start: 10-02-2024 End: 10-02-2024 Patient encounter procedure Chucho Ball DO Work Phone: [facility] Work Phone: Start: 09-29-2024 Registered Recurring Chucho Ball DO Work Phone: [facility] [place] Start: 09-07-2024 End: 09-07-2024 Patient encounter procedure Chucho Ball DO Work Phone: [facility] Work Phone: Start: 08-21-2024 End: 08-21-2024 Patient encounter procedure Chucho Ball DO Work Phone: [facility] Work Phone: Start: 08-03-2024 Non-patient / Non-visit Benjam in Ball DO Work Phone: [facility] Work Phone: Start: 08-02-2024 End: 08-02-2024 ambulatory DO Chucho Ball Work Phone: [facility] Work Phone: Start: 08-02-2024 End: 08-02-2024 Patient encounter procedure DO Chucho Ball Work Phone: [facility] Work Phone: Start: 07-26-2024 Non-patient / Non-visit DO Abhishek valderrama Ball Work Phone: [facility] Work Phone: Start: 07-25-2024 End: 07-25-2024 ambulatory DO Chucho Ball Work Phone: [facility] Work Phone: Start: 07-25-2024 End: 07-25-2024 Patient encounter procedure DO Chucho Ball Work Phone: [facility] Work Phone: Start: 07-12-2024 End: 07-12-2024 Patient encounter procedure DO Chucho Ball Work Phone: [facility] Work Phone: Start: 07-12-2024 End: 07-12-2024 ambulatory DO Chucho Ball Work Phone: [facility] Work Phone: Start: 07-05-2024 End: 07-05-2024 ambulatory DO Chucho Ball Work Phone: [facility] Work Phone: Start: 07-05-2024 End: 07-05-2024 Patient encounter procedure DO Chucho Ball Work Phone: [facility] Work Phone: Start: 06-27-2024 Non-patient / Non-visit DO Abhishek valderrama Ball Work Phone: [facility] Work Phone: Start: 06-26-2024 End: 06-26-2024 ambulatory DO Chucho Ball Work Phone: [facility] Work Phone: Start: 06-26-2024 End: 06-26-2024 Patient encounter procedure DO Chucho Ball Work Phone: [facility] Work Phone: Start: 06-24-2024 Patient encounter procedure DO Chucho Ball Work Phone: [facility] Start: 06-21-2024 End: 06-21-2024 ambulatory DO Chucho Ball Work Phone: [facility] Work Phone: Start: 06-21-2024 End: 06-21-2024 Patient encounter procedure DO Chucho Ball Work Phone: [facility] Work Phone: Start: 06-05-2024 End: 06-05-2024 ambulatory DO Chucho Ball Work Phone: [facility] Work Phone: Start: 06-05-2024 End: 06-05-2024 Patient encounter procedure DO Chucho Ball Work Phone: [facility] Work Phone: Start: 05-15-2024 End: 05-15-2024 ambulatory DO Chucho Ball Work Phone: [facility] Work Phone: Start: 05-15-2024 End: 05-15-2024 Patient encounter procedure DO Chucho Ball Work Phone: [facility] Work Phone: Start: 05-08-2024 End: 05-08-2024 ambulatory DO Chucho Ball Work Phone: [facility] Work Phone: Start: 05-08-2024 End: 05-08-2024 Patient encounter procedure DO Chucho Ball Work Phone: [facility] Work Phone: Start: 04-12-2024 End: 04-12-2024 ambulatory DO Chucho Ball Work Phone: [facility] Work Phone: Start: 04-12-2024 End: 04-12-2024 Patient encounter procedure [facility] Work Phone: Start: 04-10-2024 End: 04-10-2024 ambulatory [facility] Work Phone: Start: 04-10-2024 End: 04-10-2024 Patient encounter procedure [facility] Work Phone: Start: 03-31-2024 End: 03-31-2024 ambulatory [facility] Work Phone: Start: 03-31-2024 End: 03-31-2024 Patient encounter procedure [facility] Work Phone: Start: 03-13-2024 End: 03-13-2024 ambulatory [facility] Work Phone: Start: 03-13-2024 End: 03-13-2024 Patient encounter procedure [facility] Work Phone: Start: 02-28-2024 End: 02-28-2024 ambulatory [facility] Work Phone: Start: 02-28-2024 End: 02-28-2024 Patient encounter procedure [facility] Work Phone: Start: 02-10-2024 End: 02-10-2024 Patient encounter procedure [facility] Work Phone: Start: 01-31-2024 Non-patient / Non-visit [facility] Work Phone: Start: 01-14-2024 End: 01-14-2024 ambulatory DO Chucho Ball Work Phone: [facility] Work Phone: Start: 01-14-2024 End: 01-14-2024 Patient encounter procedure DO Chucho Ball Work Phone: [facility] Work Phone: Start: 01-12-2024 End: 01-12-2024 ambulatory DO Chucho Ball Work Phone: [facility] Work Phone: Start: 01-12-2024 End: 01-12-2024 Patient encounter procedure DO Chucho Ball Work Phone: [facility] Work Phone: Start: 01-05-2024 End: 01-05-2024 ambulatory DO Chucho Ball Work Phone: [facility] Work Phone: Start: 01-05-2024 End: 01-05-2024 Patient encounter procedure DO Chucho Ball Work Phone: [facility] Work Phone: Start: 01-05-2024 Non-patient / Non-visit DO Abhishek valderrama Ball Work Phone: [facility] Work Phone: Start: 12-21-2023 End: 12-21-2023 ambulatory DO Chucho Ball Work Phone: [facility] Work Phone: Start: 12-21-2023 End: 12-21-2023 Patient encounter procedure DO Chucho Ball Work Phone: [facility] Work Phone: Start: 12-13-2023 End: 12-13-2023 ambulatory DO Chucho Ball Work Phone: [facility] Work Phone: Start: 12-13-2023 End: 12-13-2023 Patient encounter procedure DO Chucho Ball Work Phone: [facility] Work Phone: Start: 12-09-2023 End: 12-09-2023 ambulatory DO Chucho Saravia Work Phone: [facility] Work Phone: Start: 12-09-2023 End: 12-09-2023 Patient encounter procedure DO Chucho Saravia Work Phone: [facility] Work Phone: Start: 12-01-2023 End: 12-01-2023 Patient encounter procedure DO Chucho Saravia Work Phone: [facility] Work Phone: Start: 12-01-2023 Non-patient / Non-visit DO Abhishek Saravia Work Phone: [facility] Work Phone: Start: 11-25-2023 End: 11-25-2023 Patient encounter procedure DO Chucho Saravia Work Phone: [facility] Work Phone: Start: 11-11-2023 Non-patient / Non-visit DO Abhishek Saravia Work Phone: [facility] Work Phone: Start: 11-09-2023 End: 11-09-2023 ambulatory Chucho Saravia Other [facility] [employer] Other Start: 11-09-2023 Telephone encounter Chucho Saravia [facility] Start: 11-03-2023 Office outpatient vi sit 25 minutes Coy Cassidy II [facility] Start: 11-03-2023 End: 11-03-2023 ambulatory DO Chucho Saravia Work Phone: [facility] Work Phone: Start: 11-03-2023 End: 11-03-2023 Patient encounter procedure DO Chucho Saravia Work Phone: [facility] Start: 10-11-2023 End: 10-11-2023 ambulatory Chucho Saravia Other [employer] Other Start: 10-11-2023 Telephone encounter Chucho SALGADO [facility] Start: 10-04-2023 End: 10-04-2023 Patient encounter procedure DO Chucho Saravia Work Phone: [facility] Work Phone: Start: 07-13-2023 Office outpatient vi sit 15 minutes Barry Patel [facility] Start: 07-13-2023 End: 07-13-2023 ambulatory DO Chucho Saravia Work Phone: [facility] Work Phone: Start: 07-13-2023 End: 07-13-2023 Patient encounter procedure DO Chucho Saravia Work Phone: [facility] Start: 07-09-2023 End: 07-09-2023 ambulatory Chucho Saravia Other [employer] Other Start: 07-09-2023 Telephone encounter Chucho Bishop [facility] Start: 07-08-2023 End: 07-08-2023 ambulatory DO Chucho Saravia Work Phone: [facility] Work Phone: Start: 07-08-2023 End: 07-08-2023 Patient encounter procedure DO Chucho Saravia Work Phone: [facility] Work Phone: Start: 07-06-2023 End: 07-06-2023 ambulatory Barry Valenzuela Other [employer] Other Start: 07-06-2023 Office outpatient vi sit 25 minutes Barry WOODS [facility] [place] Start: 07-06-2023 Telephone encounter Barry SALGADO [facility] [place] Start: 06-25-2023 Registered Recurring DO Benjam in Ball Work Phone: [facility] [place] Start: 06-08-2023 Office outpatient vi sit 15 minutes Barry Patel [facility] Start: 06-08-2023 End: 06-08-2023 ambulatory DO Chucho Ball Work Phone: [facility] Work Phone: Start: 06-08-2023 End: 06-08-2023 Patient encounter procedure DO Chucho Ball Work Phone: [facility] Start: 06-07-2023 Registered Recurring DO Benjam in Ball Work Phone: [facility] [place] Start: 05-18-2023 End: 05-18-2023 ambulatory Chucho Ball Other [employer] Other Start: 05-18-2023 Telephone encounter Chucho Saravia [facility] Start: 05-14-2023 End: 05-14-2023 ambulatory Chucho Ball Other [employer] Other Start: 05-14-2023 Telephone encounter Chucho Saravia [facility] Start: 04-12-2023 Postop follow up vis it related to original px Barry Patel [facility] Start: 04-12-2023 End: 04-12-2023 ambulatory DO Chucho Ball Work Phone: [facility] Work Phone: Start: 04-12-2023 End: 04-12-2023 Patient encounter procedure DO Chucho Ball Work Phone: [facility] Start: 03-08-2023 End: 03-08-2023 Patient encounter procedure DO Chucho Ball Work Phone: [facility] Start: 03-02-2023 End: 03-02-2023 ambulatory Chucho Ball Other [employer] Other Start: 03-02-2023 Telephone encounter Chucho Ball [facility] Start: 02-26-2023 End: 02-26-2023 ambulatory Chucho Saravia Other [employer] Other Start: 02-26-2023 Office outpatient vi sit 15 minutes Chucho Saravia [facility] Start: 02-26-2023 Telephone encounter Chucho Saravia FP G [facility] Start: 02-25-2023 End: 02-25-2023 ambulatory Barry Olexa Other [employer] Other Start: 02-25-2023 Telephone encounter Barry Patel [facility] Start: 02-24-2023 End: 02-24-2023 Admission to same day surgery center DO Chucho Saravia Work Phone: [facility] Start: 02-24-2023 End: 02-24-2023 ambulatory DO Chucho Saravia Work Phone: [facility] Work Phone: Start: 02-23-2023 End: 02-23-2023 ambulatory Barry Olexa Other [employer] Other Start: 02-23-2023 Telephone encounter Barry Vegaxa [facility] Start: 02-12-2023 End: 02-12-2023 Patient encounter procedure DO Chucho Saravia Work Phone: [facility]-Surgical [facility] Work Phone: Start: 02-09-2023 End: 02-09-2023 ambulatory Barry Olexa Other [employer] Other Start: 02-09-2023 Encounter for other preprocedural examination Barry Patel [facility] Start: 02-09-2023 Office outpatient vi sit 25 minutes Barry Vegaxa [facility] Start: 02-05-2023 End: 02-05-2023 ambulatory DO Chucho Ball Work Phone: [facility] Work Phone: Start: 02-05-2023 End: 02-05-2023 Patient encounter procedure DO Chucho Saravia Work Phone: [facility] [address] Work Phone: Start: 02-01-2023 End: 02-01-2023 ambulatory Barry Vegacandace Other [employer] Other Start: 02-01-2023 Telephone encounter Barry Olexa [facility] Start: 01-25-2023 Office outpatient vi sit 25 minutes Barry Olexa [facility] Start: 01-25-2023 End: 01-25-2023 ambulatory DO Chucho Saravia Work Phone: [facility] Work Phone: Start: 01-25-2023 End: 01-25-2023 Patient encounter procedure DO Chucho Saravia Work Phone: [facility] Start: 01-18-2023 End: 01-18-2023 ambulatory Chucho Saravia Other [employer] Other Start: 01-18-2023 Telephone encounter Chucho Saravia [facility] [place] Start: 12-24-2022 End: 12-24-2022 ambulatory Coy Cassidy II Other [employer] Other Start: 12-24-2022 Telephone encounter Coy Cassidy II [facility] Start: 12-14-2022 End: 12-14-2022 ambulatory Chucho Saravia Other [employer] Other Start: 12-14-2022 Office outpatient vi sit 15 minutes Chucho Saravia [facility] Start: 12-07-2022 End: 12-07-[address] CHUCHO SARAVIA Facility: Start: 12-03-2022 End: 12-03-2022 ambulatory Coy Cassidy II Other [employer] Other Start: 12-03-2022 Telephone encounter Coy Cassidy II [facility] [employer] Start: 11-30-2022 End: 11-30-2022 ambulatory Chucho Saravia Other [employer] Other Start: 11-30-2022 Telephone encounter Chucho Saravia [facility] [place] Start: 11-26-2022 End: 11-26-2022 Patient encounter procedure DO Chucho Saravia Work Phone: [facility] Start: 11-20-2022 End: 11-20-2022 ambulatory Barry Valenzuela Other [employer] Other Start: 11-20-2022 Telephone encounter Barry [facility]GADO [facility] Start: 11-19-2022 End: 11-19-2022 ambulatory Barry Valenzuela Other [employer] Other Start: 11-19-2022 Office outpatient vi sit 15 minutes Barry Valenzuela [facility] [place] Start: 11-18-2022 End: 11-18-2022 ambulatory Chucho Saravia Other [employer] Other Start: 11-18-2022 Telephone encounter Chucho Saravia [facility] [place] Start: 11-17-2022 End: 11-18-[address] NONE LISTED REQUEST Facility: Start: 11-17-2022 Nursing evaluation o f patient and report Chucho Saravia [facility] Start: 11-09-2022 (Procedure) Short Barry Valenzuela [facility] Start: 11-09-2022 End: 11-09-2022 ambulatory Barry Valenzuela Other [employer] Other Start: 10-29-2022 Office outpatient vi sit 25 minutes Barry Valenzuela [facility] [place] Start: 10-29-2022 Telephone encounter Barry SALGADO [facility] Start: 10-29-2022 End: 10-29-2022 ambulatory DO Chucho Saravia Work Phone: [facility] Work Phone: Start: 10-29-2022 End: 10-29-2022 Patient encounter procedure DO Chucho Saravia Work Phone: [facility] Start: 10-27-2022 End: 10-27-2022 ambulatory Radha Marcia Other [employer] Other Start: 10-27-2022 Telephone encounter Radha Kennedy [facility] Start: 10-23-2022 End: 10-23-2022 ambulatory Benigno Kennedy Other [employer] Other Start: 10-23-2022 Office outpatient vi sit 15 minutes Benigno Kennedy [facility] Start: 10-22-2022 End: 10-22-2022 ambulatory Chucho Saravia Other [employer] Other Start: 10-22-2022 Telephone encounter Chucho Saravia [facility] [place] Start: 08-27-2022 End: 08-27-2022 ambulatory DO Chucho Ball Work Phone: [facility] Work Phone: Start: 08-27-2022 End: 08-27-2022 Patient encounter procedure DO Chucho Saravia Work Phone: [facility] [place] Start: 08-18-2022 End: 08-18-2022 ambulatory Benigno Marica Other [employer] Other Start: 08-18-2022 Office outpatient vi sit 15 minutes Bengino Marcia [facility] Start: 08-12-2022 End: 08-12-2022 ambulatory DO Chucho Saravia Work Phone: [facility] Work Phone: Start: 08-12-2022 End: 08-12-2022 Patient encounter procedure DO Chucho Saravia Work Phone: [facility] Start: 08-04-2022 End: 08-04-2022 ambulatory Barry Valenzuela Other [employer] Other Start: 08-04-2022 Office outpatient vi sit 25 minutes Barry Valenzuela [facility] [place] Start: 07-07-2022 End: 07-07-2022 ambulatory DO Chucho Saravia Work Phone: [facility] Work Phone: Start: 07-07-2022 End: 07-07-2022 Patient encounter procedure DO Chucho Saravia Work Phone: [facility] Start: 06-22-2022 Adult health examination Jose Angeljohnson Saravia Other [employer] Other Start: 06-22-2022 End: 06-23-[address] CHUCHO SARAVIA Facility:[facility] Start: 05-26-2022 End: 05-26-[address] CHUCHO SARAVIA Facility:[facility] Start: 04-28-2022 End: 04-29-[address] CHUCHO SARAVIA Facility:[facility] Start: 04-16-2022 End: 04-17-[address] CHUCHO SARAVIA Facility:[facility] Start: 04-15-2022 End: 04-15-[address] CHUCHO SARAVIA Facility:[facility] Start: 03-11-2022 End: 03-11-2022 ambulatory Barry Valenzuela Other [employer] Other Start: 03-11-2022 Office outpatient vi sit 25 minutes Barry Valenzuela [facility] [place] Start: 03-04-2022 (Procedure) Short Barry Valenzuela [facility] Start: 03-04-2022 End: 03-04-2022 ambulatory Barry Valenzuela Other [employer] Other Start: 02-17-2022 End: 02-17-2022 ambulatory Benigno Kennedy Other [employer] Other Start: 02-17-2022 Office outpatient vi sit 15 minutes Benigno Kennedy [facility] Start: 01-19-2022 End: 01-20-[address] CHUCHO SARAVIA Facility:[facility] Start: 01-05-2022 End: 01-05-2022 ambulatory Barry Valenzuela Other [employer] Other Start: 01-05-2022 Office outpatient vi sit 25 minutes Barry Valenzuela [facility] [place] Start: 12-03-2021 End: 12-03-2021 ambulatory Barry Valenzuela Other [employer] Other Start: 12-03-2021 Office outpatient vi sit 25 minutes Barry Valenzuela [facility] [place] Start: 11-28-2021 End: 11-28-2021 ambulatory Barry Valenzuela Other [employer] Other Start: 11-28-2021 Telephone encounter Barry [facility] Start: 11-07-2021 End: 11-07-2021 ambulatory Benigno Kennedy Other [employer] Other Start: 11-07-2021 Office outpatient vi sit 15 minutes Benigno Kennedy [facility] Start: 11-03-2021 End: 11-03-2021 ambulatory Barry Valenzuela Other [employer] Other Start: 11-03-2021 Office outpatient vi sit 25 minutes Barry Valenzuela [facility] [place] Start: 10-14-2021 (Procedure) Short Barry Valenzuela [facility] Start: 10-14-2021 End: 10-14-2021 ambulatory Barry Valenzuela Other [employer] Other Start: 10-06-2021 End: 10-06-2021 ambulatory Barry Valenzuela Other [employer] Other Start: 10-06-2021 Office outpatient vi sit 25 minutes Barry Valenzuela [facility] [place] Start: 09-18-2021 End: 09-18-2021 ambulatory Benigno Kennedy Other [employer] Other Start: 09-18-2021 Office outpatient vi sit 15 minutes Benigno Kennedy [facility] Start: 09-11-2021 End: 09-11-2021 ambulatory Barry Reesdave Other [employer] Other Start: 09-11-2021 Office outpatient vi sit 25 minutes Barry Valenzuela [facility] [place] Start: 09-02-2021 End: 09-02-2021 ambulatory Barry Reeser Other [employer] Other Start: 09-02-2021 Office outpatient vi sit 25 minutes Barry Valenzuela [facility] [place] Start: 08-26-2021 (Procedure) Short Barry Valenzuela [facility] Start: 08-26-2021 End: 08-26-2021 ambulatory Barry Valenzuela Other [employer] Other Start: 08-25-2021 End: 08-25-2021 ambulatory Benigno Marcia Other [employer] Other Start: 08-25-2021 Telephone encounter Benigno Kennedy [facility] Start: 08-15-2021 End: 08-15-2021 ambulatory Barry Reesdave Other [employer] Other Start: 08-15-2021 Telephone encounter Barry Valenzuela [facility] [place] Start: 08-14-2021 End: 08-14-2021 ambulatory Benigno Marcia Other [employer] Other Start: 08-14-2021 Office outpatient vi sit 15 minutes Benigno Kennedy [facility] Start: 09-05-2019 Pre-procedure evalua tion check Chucho Saravia Other [employer] Other Start: 06-06-2018 Patient encounter CIRA BENDER Fac ility:[id number] Start: 06-06-2018 Patient encounter Facil [id number] Start: 04-11-2018 End: 04-13-2018 Patient encounter RENATA LEIF [facility] Start: 04-11-2018 End: 04-11-2018 Patient encounter RENATA LEIF [facility] Start: 04-11-2018 End: 04-13-2018 Patient encounter RENATA LEIF [facility] Procedures Date Procedure Procedure Detail Performing Clinician Start: 05-16-2025 X-ray of right knee, three views Chucho Ball DO Work Phone: Start: 01-01-2025 Plain X-ray of bilat eral hands Chucho Ball DO Work Phone: Start: 07-12-2024 Screening mammograph y of bilateral breasts DO Chucho Ball Work Phone: Start: 11-03-2023 Plain x-ray of pelvi s [...] 11-26-2022 X-ray of right knee DO Chucho [email or web address] Work Phone: Start: 11-26-2022 Plain X-ray of right hip DO Chucho [email or web address] Work Phone: Start: 10-29-2022 Plain X-ray of right hip DO Chucho [email or web address] Work Phone: Start: 08-27-2022 MRI of lumbar spine with contrast DO Chucho [email or web address] Work Phone: Start: 08-12-2022 X-ray of lumbar spin e, four views DO Chucho [email or web address] Work Phone: Start: 07-07-2022 Screening mammograph y of bilateral breasts DO [email or web address] [email or web address] Work Phone: Start: 01-25-2018 Screening for osteoporosis [...] Treatment Date Care Activity Detail Author Start: 06-18-2025 End: 06-18-2025 Patient encounter procedure 06/18/2025 11:30 AM EDT Procedure Visit [facility] [address] [place] [address] Lauro Todd DPM [address] [address] [facility] Start: 05-16-2025 X-ray of right knee, three views XR knee RT 3V - NOT FOR ER USE [facility] Start: 05-16-2025 XR Knee - right 3 Views [facility] Start: 01-01-2025 Plain X-ray of bilat eral hands XR hand BI 3V [facility] Start: 01-01-2025 XR Hand - bilateral 3 Views [facility] Start: 04-10-2024 Patient referral [facility] Work Phone: Start: 02-24-2023 End: 02-24-2023 [facility] Start: 02-24-2023 Referral to occupati onal therapist [facility] Start: 02-24-2023 [facility] Start: 01-25-2023 Plain X-ray of left shoulder XR shoulder LT min 2V* [facility] Comprehensive metabo lic 2000 panel - Serum or Plasma [facility] DXA Skeletal system. axial Views for bone density [facility] MG Breast - bilatera l Screening [facility] Patient referral [facility] Work Phone: [facility]hor[facility] XR Chest 2 Views [facility] Immunizations Immunization Date Immunization Notes Care Provider Fa josué 07-19-2024 COVID-19 mRNA Bivale nt Booster (Pfizer) DO [employer] Work Phone: [facility] 06-15-2024 influenza, high dose seasonal, preservative-free DO [employer] Work Phone: [facility] 06-15-2024 Pneumococcal Conjuga te Vaccine, 20 valent DO [employer] Work Phone: [facility] 06-15-2024 RSV, preF3, adj, pf DO Jose Angel [email or web address] Work Phone: [facility] 06-22-2023 Fluzone QIV High-Dos e 65YR+ DO [employer] Work Phone: [facility] 06-22-2023 influenza virus vaccine, unspecified formulation DO Chucho Saravia Work Phone: [facility] 06-22-2023 influenza, high dose seasonal, preservative-free Barry Valenzuela Other [facility] [employer] Other 06-16-2022 Fluzone QIV High-Dos e 65YR+ DO Chucho Saravia Work Phone: [facility] 06-16-2022 influenza virus vaccine, split virus (incl. purified surface antigen) Chucho Saravia Other [facility] [employer] Other 06-16-2022 influenza virus vaccine, unspecified formulation DO Chucho Saravia Work Phone: [facility] 04-15-2022 diphtheria, tetanus toxoids and pertussis vaccine DO Chucho Saravia Work Phone: [facility] 08-06-2021 COVID-19 mRNA-1273 (Moderna) DO Chucho Saravia Work Phone: [facility] 07-13-2021 Fluzone QIV High-Dos e 65YR+ DO Chucho Saravia Work Phone: [facility] 12-16-2020 COVID-19 mRNA-1273 (Moderna) DO Chucho Saravia Work Phone: [facility] 11-18-2020 COVID-19 mRNA-1273 (Moderna) DO Chucho Saravia Work Phone: [facility] 06-27-2020 Influenza vaccine, quadrivalent, adjuvanted DO Chucho Saravia Work Phone: [facility] 06-20-2019 influenza, high dose seasonal, preservative-free DO Chucho Saravia Work Phone: [facility] 09-10-2018 influenza, high dose seasonal, preservative-free DO Chucho Saravia Work Phone: [facility] 06-02-2017 influenza virus vaccine, split virus (incl. purified surface antigen) Chucho Saravia Other [employer] Other 06-02-2017 influenza virus vaccine, unspecified formulation DO Chucho [email or web address] Work Phone: [facility] 05-28-2017 influenza, high dose seasonal, preservative-free DO Chucho [email or web address] Work Phone: [facility] 02-10-2017 pneumococcal polysaccharide vaccine, 23 valent Chucho Saravia Other [facility] 07-18-2015 influenza, injectabl e, quadrivalent, contains preservative DO [employer] Work Phone: [facility] 05-01-2015 pneumococcal conjuga te vaccine, 13 valent Chucho Saravia Other [facility] 05-01-2015 pneumococcal Conjuga te, unspecified formulation; Translations: [Need for prophylactic vaccination against Streptococcus pneumoniae (pneumococcus)] Chucho Saraiva Other [employer] Other 08-01-2014 influenza virus vaccine, split virus (incl. purified surface antigen) Chucho Saravia Other [employer] Other 08-01-2014 influenza virus vaccine, unspecified formulation DO [email or web address] Work Phone: [facility] 07-05-2013 tetanus and diphther ia toxoids, adsorbed, preservative free, for adult use (5 Lf of tetanus toxoid and 2 Lf of diphtheria toxoid) [employer] Other [facility] 07-05-2012 tetanus and diphther ia toxoids, adsorbed, preservative free, for adult use (5 Lf of tetanus toxoid and 2 Lf of diphtheria toxoid) [employer] Sar[facility] Other [facility] 07-01-2011 tetanus and diphther ia toxoids, adsorbed, preservative free, for adult use (5 Lf of tetanus toxoid and 2 Lf of diphtheria toxoid) [employer] [facility] Other [facility] 08-06-2004 pneumococcal polysaccharide vaccine, 23 valent [facility] [facility] Other [facility] Payers Date Payer Category Payer Private Health Insurance [employer] [id number] 2011 Medicare MEDICARE [id number] 1959 Medicare [id number] 1959 Self-pay [id number] 1959 Unknown [id number] 1947 Unknown [id number] 2.16.840.1.186982.3.579.2. 593 1945 Unknown [id number] 2.16.840.1.119734.3.579.2. 593 1947 Unknown [id number] 2.16.840.1.240363.3.579.2. 593 1947 Unknown [id number] 2.16840.1.354994.3.579.2. 593 1947 Unknown [id number] 2.16.840.1.640964.3.579.2. 593 1947 Unknown [id number] 2.16.840.1.003029.3.579.2. 593 1947 Unknown [id number] 2.16.840.1.399029.3.579.2. 593 1945 Unknown [id number] 2.16.840.1.319211.3.579.2. 1259 Medicare [id number] Unknown [facility] [employer] [id number] Unknown [id number] 2.16.840.1.913046.3.579.2. 593 Unknown [id number] 2.16.840.1.554843.3.579.2. 531 Unknown [id number] 2.16.840.1.481690.3.579.2. 531 Unknown [id number] 2.16.840.1.803576.3.579.2. 531 Unknown [id number] 2.16.840.1.890349.3.579.2. 531 Social History Date Type Detail Facility Unknown if ever smoked [facility] [employer] Other Start: 03-16-2024 Sex Assigned At N [facility] [employer] Other Start: 03-05-2021 End: 04-10-2024 Tobacco smoking status MSIS Ex-smoker (finding) [facility] Start: 1945 Sex Assigned At Female F [facility] Start: 10-02-2024 End: 02-21-2025 Sex Female (finding) [facility] History of tobacco use Current smoker [facility] History of tobacco use Cigarette Smoker [facility] Start: 03-17-2023 Tobacco use and exposure Smokeless tobacco non-user [facility] Start: 03-16-2024 End: 03-19-2025 Alcoholic beverage intake Current drinker of alcohol (finding) [facility] Start: 03-16-2024 History of Social function [facility] Start: 1945 Sex assigned at Not on file N [facility] Medical Equipment Procedure Code Equipment Code Equipment Origin al Text Equipment Identifier Dates Fusion, spine, lumbar, XLIF CANCELLOUS 15CC CRUSHED FDA Start: 03-05-2021 Fusion, spine, lumbar, XLIF Orthopaedic bone screw, non-bioabsorbable, non-sterile [id number] FDA Start: 03-05-2021 Fusion, spine, lumbar, XLIF Orthopaedic instrument surgical connector [id number] FDA Start: 03-05-2021 Fusion, spine, lumbar, XLIF Bone-screw internal spinal fixation system, non-sterile [id number] FDA Start: 03-05-2021 Fusion, spine, lumbar, XLIF Spinal fusion graft kit ()[id number] FDA Start: 03-05-2021 Fusion, spine, lumbar, XLIF Polymeric spinal fusion cage, sterile ()[id number]( [id number] FDA Start: 03-05-2021 Fusion, spine, lumbar, XLIF Bone-screw internal spinal fixation system, non-sterile [id number] FDA Start: 03-05-2021 Fusion, spine, lumbar, XLIF Orthopaedic bone screw, non-bioabsorbable, non-sterile +[id number] FDA Start: 03-05-2021 Fusion, spine, lumbar, XLIF [...] 03-05-2021 Arthroscopy, shoulder Tendon/ligament bone anchor, non-bioabsorbable ()[id number] FDA Start: 08-01-2019 Arthroplasty, shoulder, total Total reverse shoulder prosthesis ()[id number]( [id number] 69 FDA Start: 02-24-2023 Arthroplasty, shoulder, total Total reverse shoulder prosthesis ()[id number]( [id number] FDA Start: 02-24-2023 Arthroplasty, shoulder, total Total reverse shoulder prosthesis [id number]( [id number] 30 FDA Start: 02-24-2023 Arthroplasty, shoulder, total Total reverse shoulder prosthesis ()[id number]( [id number])[id number] 00 FDA Start: 02-24-2023 Arthroplasty, shoulder, total Total reverse shoulder prosthesis [id number]( [id number] 66 FDA Start: 02-24-2023 Arthroplasty, shoulder, total Total reverse shoulder prosthesis ()[id number]( [id number] 85 FDA Start: 02-24-2023 Arthroplasty, shoulder, total Total reverse shoulder prosthesis ()[id number]( 17)[id number] FDA Start: 02-24-2023 Arthroplasty, shoulder, total Total reverse shoulder prosthesis [id number] [id number] FDA Start: 02-24-2023 Arthroplasty, shoulder, total Total reverse shoulder prosthesis [id number]( [id number] [facility] Start: 02-24-2023 Arthroplasty, shoulder, total Total reverse shoulder prosthesis ([id number] [id number] [facility] Start: 02-24-2023 Goals Date Patient Goal Desired Activity /State Clinical Notes 08-14-2021 to 03-28-2025 Note Date & Type Note Facility 03-28-2025 Evaluation note Diagnosis Onset Date Resolution Bilateral knee pain acute March 28, 2025 10:56am Chronic pain chronic March 28 10:56am DJD (degenerative joint disease), lumbosacral chronic March 28, 2025 10:56am Trochanteric bursitis chronic Mar 10:56am 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 acute April 16, 2025 11:19am Bilateral carpal tunnel syndrome acute April 16, 2025 11:19am Right hip pain acute April 10:48am Chronic pain chronic April 30, 2025 10:48am DJD (degenerative joint disease), lumbosacral chronic April 10:48am Trochanteric bursitis chronic Apr 10:48am Pernicious anemia acute May 03, 2025 12:00pm Painful total knee replacement, right acute May 16, 2025 11:32am 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 acute May 302024 11:22am Bilateral carpal tunnel syndrome acute May 30, 025 11:22am [facility] Work Phone: 1(360) 121-348407-02-2025 Evaluation note* Diagnosis Onset Date Resolution Status Admit Date Bilateral knee pain acute March 28, 2025 10:56am Chronic pain chronic March 28 10:56am DJD (degenerative joint disease), lumbosacral chronic March 28, 2025 10:56am Trochanteric bursitis chronic Mar 10:56am 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 acute April 16, 2025 11:19am Bilateral carpal tunnel syndrome acute April 16, 2025 11:19am Right hip pain acute April 10:48am Chronic pain chronic April 30, 2025 10:48am DJD (degenerative joint disease), lumbosacral chronic April 10:48am Trochanteric bursitis chronic Aug ust 2024 10:48am Pernicious anemia acute May 03, 2025 12:00pm Painful total knee replaceme nt, right acute May 16 11:32am 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 acute Septe mber 2024 11:22am Bilateral carpal tunnel syndrome acute May 30, 025 11:22am Right hip pain acute May 31, 2025 11:19am Chronic pain chronic May 11:19am DJD (degenerative joint disease), lumbosacral chronic May 31, 2025 11:19am Trochanteric bursitis chronic Sep tem2024 11:19am [facility] Work Phone: 1(884) 310-610806-23-2025 History of Present illness Narrative* Lauro Todd DPM - 03/19/2025 11:30 AM EDT Patient: Tiana Louis : 1945 PCP: Chucho Saravia DO SUBJECTIVE This is a 80 y.o. female that presents today with a CC of elongated, thick nails. Pt states nails have been elongated and thick for many years and cause pain with ambulation in shoegear. Pt has tried previous treatment with minimal relief. Pt presents today for nail care and treatment. Patient's history of burning and tingling to feet from peripheral neuropathy from spinal surgery inthe past and has tried different treatments with minimal improvement including diclofenac gel and states it is on her foot up to her knee regions bilaterally with burning and tingling at times Allergies: Allergies Allergen Reactions Molds & Smuts Unknown Wound Dressing Adhesive Rash Past Medical History: Past Medical History: Diagnosis Date Arthritis COPD (chronic obstructive pulmonary disease) (HCC) Degenerative joint disease Dry eyes Hypothyroidism Lumbar spondylosis Meningioma (HCC) Osteopenia Peripheral neuropathy S/P right hip fracture Medications: Current Outpatient Medications: albuterol HFA 90 mcg/act inhaler, Inhale 2 puffs every 4 (four) hours if needed for wheezing., Disp: , Rfl: alendronate (Fosamax) 70 MG/75ML solution, Take 70 mg by mouth every 7 (seven) days. Take in the morning with a full glass of water, on an empty stomach, and do not take anything else by mouth or liedown for the next 30 min., Disp: , Rfl: ALPRAZolam (Niravam) 0.5 MG disintegrating tablet, Take 0.5 mg by mouth as needed at bedtime for anxiety., Disp: , Rfl: azithromycin (Zithromax) 250 MG tablet, TAKE DIRECTED FOR 5 DAYS, Disp: , Rfl: diclofenac (Voltaren) 75 MG EC tablet, , Disp: , Rfl: doxycycline (Vibramycin) 100 MG capsule, Take 100 mg by mouth in the morning and 100 mg before bedtime., Disp: , Rfl: DULoxetine (Cymbalta) [address] capsule, Take 20 mg by mouth in the morning and 20 mg before bedtime. Do not crush or chew. ., Disp: , Rfl: Fluticasone-Salmeterol 250-50 MCG/ACT aerosol powder , Inhale 1 puff in the morning and 1 puff before bedtime., Disp: , Rfl: furosemide (Lasix) 80 MG tablet, Take by mouth., Disp: , Rfl: HYDROcodone-acetaminophen ([place]) 5-325 MG tablet, , Disp: , Rfl: ipratropium (Atrovent) 0.02 % nebulizer solution, Take by nebulization every 6 (six) hours., Disp: , Rfl: levothyroxine (Synthroid, Levoxyl) 150 MCG tablet, Take 150 mcg by mouth in the morning., Disp: , Rfl: methylPREDNISolone (Medrol Dospak) 4 MG tablets, USE DIRECTED, Disp: , Rfl: potassium chloride (Klor-Con) 20 MEQ packet, Take 20 mEq by mouth in the morning and 20 mEq before bedtime., Disp: , Rfl: predniSONE (Deltasone) 20 MG tablet, TAKE 1 TABLET BY MOUTH THREE TIMES DAILY FOR 3 DAYS, THEN TAKE1 TAB TWICE DAILY FOR 3 DAYS, THEN TAKE 1 TAB ONCE DAILY FOR 3 DAYS DIRECTED WITH FOOD, Disp: , Rfl: traZODone (Desyrel) 50 MG tablet, TAKE 2 TABLETS BY MOUTH ONCE DAILY AT BEDTIME, Disp: , Rfl: Social History: Social History Socioeconomic History Marital status: Spouse name: Not on file Number of children: Not on file Years of education: Not on file Highest education level: Not on file Occupational History Not on file Tobacco Use Smoking status: Former Types: Cigarettes Smokeless tobacco: Never Substance and Sexual Activity Alcohol use: Yes Drug use: Defer Sexual activity: Not on file Other Topics Concern Not on file Social History Narrative Not on file Social Drivers of Health Financial Resource Strain: Not on file Food Insecurity: Not on file Transportation Needs: Not on file Physical Activity: Not on file Stress: Not on file Social Connections: Not on file Intimate Partner Violence: Unknown (11/18/2023) Received from [facility] Safety & Environment Fear of Current or Ex-Partner: Not on file Emotionally Abused: Not on file Physically Abused: Not on file Sexually Abused: Not on file Physically or Sexually Abused: Not on file Housing Stability: Not on file ROS: General: denies fever, chills, fatigue, malaise Gastrointestinal: denies abdominal pain, ulcers, or changes in appetite or bowel habits Musculoskeletal: positive history of hip and back surgery in the past Cardiovascular: denies CP, palpitations, irregular rhythms OBJECTIVE LE EXAM: DERM: Elongated thick yellow crumbly nails digits 1 through 10. Positive hair growth b/l feet. VASC: positive DP and negative PT pedal pulses NEURO: 5.07 Lucas Marce monofilament test positive to digits and forefoot bilaterally 125Hz tuning fork positive to 1st MPJ bilaterally ORTHO: Positive pain on palpation to toenails of the left 1,2,3,4,5 toes and right 1,2,3,4,5 toes ASSESSMENT 1. Other polyneuropathy 2. Pain due to onychomycosis of toenails of both feet PLAN Discussed proper foot care with patient today. Debride nails in length and thickness digits 1 through 10 Discussed peripheral neuropathy in detail and is spinal in origin discussed possible Voltaren gel or gabapentin and patient has tried both with negative improvement also discussed possible referral to spine surgeon and does not want at this time and informed if worsen may consider possible treatment options Lauro Todd DPM [id number] Evaluation note* Diagnosis Onset Date Resolution Status Admit Date [...] syndrome acu te April 16, 2025 11:19am Bilateral knee pain acute Aug2024 10:48am Chronic pain chronic April 30, 2025 10:48am DJD (degenerative joint disease), lumbosacral chronic April 10:48am Trochanteric bursitis chronic Apr 10:48am [facility] Work Phone: 1(425) 935-434405-28-2025 Evaluation note* Diagnosis Onset Date Resolution Status Admit Date [...] lumbosacral chronic April 10:48am Trochanteric bursitis chronic Apr 10:48am [facility] Work Phone: 1(559) 834-671605-28-2025 Evaluation note* Diagnosis Onset Date Resolution Status Admit Date [...] lumbosacral chronic April 10:48am Trochanteric bursitis chronic Apr 10:48am Pernicious anemia acute May 03, 2025 12:00pm [facility] Work Phone: 1([phone]) 770-988405-28-2025 Evaluation note* Diagnosis Onset Date Resolution Status Admit Date [...] lumbosacral chronic April 10:48am Trochanteric bursitis chronic Apr us2024 10:48am Pernicious anemia acute May 03, 2025 12:00pm Painful total knee replaceme nt, right acute May 16 11:32am [facility] Work Phone: 1(616) 464-168005-01-2025 Evaluation note* Diagnosis Onset Date Resolution Status Admit Date Chronic pain chronic January 25 11:08am DJD (degenerative joint dise ase), lumbosacral chronic January 25, 2025 11 :08am Trochanteric bursitis chronic January 25, 2025 11:08am Chronic pain chronic February 21 10:58am DJD (degenerative joint dise ase), lumbosacral chronic February 21, 2025 1 0:58am Trochanteric bursitis chronic February 21, 2025 10:58am Bilateral knee pain acute March 28, 2025 10:56am Chronic pain chronic March 28 10:56am DJD (degenerative joint dise ase), lumbosacral chronic March 28, 2025 1 0:56am Trochanteric bursitis chronic Mar 10:56am 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 acute April 16, 2025 11:19am Bilateral carpal tunnel syndrome acu te April 16, 2025 11:19am [facility] Work Phone: 1(641) 443-547804-03-2025 Evaluation note* Diagnosis Onset Date Resolution Status Admit Date Inflammation of right sacroi liac joint chronic December 28, 2024 11:17am 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 acute January 01, 2025 11:27am Bilateral hand pain acute January 01, 2025 11:27am Chronic pain chronic January 25 11:08am DJD (degenerative joint dise ase), lumbosacral chronic January 25, 2025 11 :08am Trochanteric bursitis chronic January 25, 2025 11:08am Chronic pain chronic February 21 10:58am DJD (degenerative joint dise ase), lumbosacral chronic February 21, 2025 1 0:58am Trochanteric bursitis chronic February 21, 2025 10:58am Bilateral knee pain acute March 28, 2025 10:56am Chronic pain chronic March 28 10:56am DJD (degenerative joint dise ase), lumbosacral chronic March 28, 2025 1 0:56am Trochanteric bursitis chronic Mar 10:56am [facility] Work Phone: 1(255) 655-544304-02-2025 Evaluation note* Diagnosis Onset Date Resolution Status Admit Date Chronic kidney disease acute Ap ril 2024 9:01am Chronic venous insufficiency of lower extremity acute December 27, 2024 9:01am LALITA (generalized anxiety disorder) acute December 27, 2024 9:01am Hypothyroid acute December 27 9:01am Lumbar spondylosis acute December 27, 2024 9:01am Obesity acute December 27 9:01am BRET (obstructive sleep apnea) acute December 27, 2024 9:01am Osteoporosis acute December 27 9:01am Acute exacerbation of chroni c obstructive airways disease deleted 2024 9:01am Chronic obstructive pulmonar y disease with (acute) lower respiratory infection deleted December 27, 2024 9:01am Inflammation of right sacroi liac joint chronic December 28, 2024 11:17am 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 acute January 01, 2025 11:27am Bilateral hand pain acute January 01, 2025 11:27am Chronic pain chronic January 25 11:08am DJD (degenerative joint dise ase), lumbosacral chronic January 25, 2025 11 :08am Trochanteric bursitis chronic January 25, 2025 11:08am Chronic pain chronic February 21 10:58am DJD (degenerative joint dise ase), lumbosacral chronic February 21, 2025 1 0:58am Trochanteric bursitis chronic February 21, 2025 10:58am [facility] Work Phone: 1(142) 550-194803-05-2025 Evaluation note* Diagnosis Onset Date Resolution Status Admit Date Chronic pain deleted November 29, 2 025 11:10am DJD (degenerative joint dise ase), lumbosacral deleted November 29, 2024 11:10am Trochanteric bursitis deleted Nov 11:10am Chronic kidney disease acute Ap ril 2024 9:01am Chronic venous insufficiency of lower extremity acute December 27, 2024 9:01am LALITA (generalized anxiety disorder) acute December 27, 2024 9:01am Hypothyroid acute December 27 9:01am Lumbar spondylosis acute December 27, 2024 9:01am Obesity acute December 27 9:01am BRET (obstructive sleep apnea) acute December 27, 2024 9:01am Osteoporosis acute December 27 9:01am Acute exacerbation of chroni c obstructive airways disease deleted 2024 9:01am Chronic obstructive pulmonar y disease with (acute) lower respiratory infection deleted December 27, 2024 9:01am Inflammation of right sacroi liac joint chronic December 28, 2024 11:17am 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 acute January 01, 2025 11:27am Bilateral hand pain acute January 01, 2025 11:27am Chronic pain deleted January 25 11:08am DJD (degenerative joint dise ase), lumbosacral deleted January 25, 2025 11 :08am Trochanteric bursitis deleted January 25, 2025 11:08am [facility] Work Phone: 1([phone]) 643-360603-05-2025 Evaluation note* Diagnosis Onset Date Resolution Status Admit Date Chronic pain chronic November 29, 11:10am DJD (degenerative joint dise ase), lumbosacral chronic November 29, 2024 11:10am Trochanteric bursitis chronic Nov 11:10am Chronic kidney disease acute Ap 2024 9:01am Chronic venous insufficiency of lower extremity acute December 27, 2024 9:01am LALITA (generalized anxiety disorder) acute December 27, 2024 9:01am Hypothyroid acute December 27 9:01am Lumbar spondylosis acute December 27, 2024 9:01am Obesity acute December 27 9:01am BRET (obstructive sleep apnea) acute December 27, 2024 9:01am Osteoporosis acute December 27 9:01am Acute exacerbation of chroni c obstructive airways disease deleted 2024 9:01am Chronic obstructive pulmonar y disease with (acute) lower respiratory infection deleted December 27, 2024 9:01am Inflammation of right sacroi liac joint chronic December 28, 2024 11:17am 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 acute January 01, 2025 11:27am Bilateral hand pain acute January 01, 2025 11:27am Chronic pain chronic January 25 11:08am DJD (degenerative joint dise ase), lumbosacral chronic January 25, 2025 11 :08am Trochanteric bursitis chronic January 25, 2025 11:08am Chronic pain chronic February 21, 10:58am DJD (degenerative joint dise ase), lumbosacral chronic February 21, 2025 1 0:58am Trochanteric bursitis chronic February 21, 2025 10:58am [facility] Work Phone: 1([phone]) [phone] Evaluation note* Diagnosis Onset Date Resolution Status Admit Date Chronic pain deleted October 11:00am DJD (degenerative joint disease), lumbosacral deleted November 022024 11:00am Trochanteric bursitis deleted Oct 11:00am Chronic pain deleted November 29, 025 11:10am DJD (degenerative joint disease), lumbosacral deleted November 29, 2024 11:10am Trochanteric bursitis deleted Nov 11:10am Chronic kidney disease acute Ap 2024 9:01am Chronic venous insufficiency of lower extremity acute December 27, 2024 9:01am LALITA (generalized anxiety disorder) acute December 27, 2024 9:01am Hypothyroid acute December 27 9:01am Lumbar spondylosis acute December 27, 2024 9:01am Obesity acute December 27 9:01am BRET (obstructive sleep apnea) acute December 27, 2024 9:01am Osteoporosis acute December 27 025 9:01am Acute exacerbation of chroni c obstructive airways disease deleted Apr2024 9:01am Chronic obstructive pulmonar y disease with (acute) lower respiratory infection deleted December 27, 2024 9:01am Inflammation of right sacroiliac joint chronic December 28, 2024 11:17am 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 acute January 01, 2025 11:27am [facility] Work Phone: 1(884) 767-444802-06-2025 Evaluation note* Diagnosis Onset Date Resolution Status Admit Date Chronic pain deleted October 11:00am DJD (degenerative joint disease), lumbosacral deleted November 022024 11:00am Trochanteric bursitis deleted Oct 11:00am Chronic pain deleted November 29 11:10am DJD (degenerative joint disease), lumbosacral deleted November 29, 2024 11:10am Trochanteric bursitis deleted Nov 2024 11:10am Chronic kidney disease acute Ap ril 2024 9:01am Chronic venous insufficiency of lower extremity acute December 27, 2024 9:01am LALITA (generalized anxiety disorder) acute December 27, 2024 9:01am Hypothyroid acute December 27 9:01am Lumbar spondylosis acute December 27, 2024 9:01am Obesity acute December 27 9:01am BRET (obstructive sleep apnea) acute December 27, 2024 9:01am Osteoporosis acute December 27 9:01am Acute exacerbation of chroni c obstructive airways disease deleted Apri l 2024 9:01am Chronic obstructive pulmonar y disease with (acute) lower respiratory infection deleted December 27, 2024 9:01am Inflammation of right sacroiliac joint chronic December 28, 2024 11:17am 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 acute January 01, 2025 11:27am Bilateral hand pain acute January 01, 2025 11:27am [facility] Work Phone: 1(411) 768-248702-06-2025 Evaluation note* Diagnosis Onset Date Resolution Status Admit Date Chronic pain deleted October 11:00am DJD (degenerative joint disease), lumbosacral deleted November 022024 11:00am Trochanteric bursitis deleted Oct 11:00am Chronic pain deleted November 29 11:10am DJD (degenerative joint disease), lumbosacral deleted November 29, 2024 11:10am Trochanteric bursitis deleted [facility] 2024 11:10am Chronic kidney disease acute Ap ril 2024 9:01am Chronic venous insufficiency of lower extremity acute December 27, 2024 9:01am LALITA (generalized anxiety disorder) acute December 27, 2024 9:01am Hypothyroid acute December 27 9:01am Lumbar spondylosis acute December 27, 2024 9:01am Obesity acute December 27 9:01am BRET (obstructive sleep apnea) acute December 27, 2024 9:01am Osteoporosis acute December 27 9:01am Acute exacerbation of chroni c obstructive airways disease deleted 2024 9:01am Chronic obstructive pulmonar y disease with (acute) lower respiratory infection deleted December 27, 2024 9:01am Inflammation of right sacroiliac joint chronic December 28, 2024 11:17am 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 acute January 01, 2025 11:27am Bilateral hand pain acute January 01, 2025 11:27am Inflammation of right sacroiliac joint chronic January 25, 2025 1 1:08am [facility] Work Phone: 1([phone]) 238-525201-06-2025 Evaluation note* Diagnosis Onset Date Resolution Status Admit Date Chronic pain acute October 02, 2024 10:36am DJD (degenerative joint disease), lumbosacral acute September 10:36am Trochanteric bursitis acute Sep 10:36am Chronic pain acute October 11:00am DJD (degenerative joint disease), lumbosacral acute November 022024 11:00am Trochanteric bursitis acute Oct 11:00am Chronic pain acute November 29 11:10am DJD (degenerative joint disease), lumbosacral acute November 29, 2024 11:10am Trochanteric bursitis acute Nov 11:10am [facility] Work Phone: 1(693) 241-426101-06-2025 Evaluation note* Diagnosis Onset Date Resolution Status Admit Date Chronic pain deleted October 02, 2024 10:36am DJD (degenerative joint disease), lumbosacral deleted September 10:36am Trochanteric bursitis deleted Sep 10:36am Chronic pain deleted October 11:00am DJD (degenerative joint disease), lumbosacral deleted November 022024 11:00am Trochanteric bursitis deleted Oct 11:00am Chronic pain deleted November 29 11:10am DJD (degenerative joint disease), lumbosacral deleted November 29, 2024 11:10am Trochanteric bursitis deleted [facility] 2024 11:10am Chronic bronchitis acute December 27, 2024 9:01am Chronic kidney disease acute Ap ril 2024 9:01am LALITA (generalized anxiety disorder) acute December 27, 2024 9:01am Hypothyroid acute December 27 9:01am Lumbar spondylosis acute December 27, 2024 9:01am Obesity acute December 27 9:01am BRET (obstructive sleep apnea) acute December 27, 2024 9:01am Osteoporosis acute December 27 9:01am [facility] Work Phone: 1(520) 508-400101-06-2025 Evaluation note* Diagnosis Onset Date Resolution Status Admit Date Chronic pain deleted October 02, 2024 10:36am DJD (degenerative joint disease), lumbosacral deleted September 10:36am Trochanteric bursitis deleted Sep 10:36am Chronic pain deleted October 11:00am DJD (degenerative joint disease), lumbosacral deleted November 022024 11:00am Trochanteric bursitis deleted Oct 11:00am Chronic pain deleted November 29 11:10am DJD (degenerative joint disease), lumbosacral deleted November 29, 2024 11:10am Trochanteric bursitis deleted [facility] 2024 11:10am Chronic kidney disease acute Ap ril 2024 9:01am Chronic venous insufficiency of lower extremity acute December 27 9:01am LALITA (generalized anxiety disorder) acute December 27, 2024 9:01am Hypothyroid acute December 27 9:01am Lumbar spondylosis acute December 27, 2024 9:01am Obesity acute December 27 9:01am BRET (obstructive sleep apnea) acute December 27, 2024 9:01am Osteoporosis acute December 27 9:01am Acute exacerbation of chroni c obstructive airways disease deleted Apr2024 9:01am Chronic obstructive pulmonar y disease with (acute) lower respiratory infection deleted December 27, 2024 9:01am Inflammation of right sacroiliac joint chronic December 28, 2024 11:17am Chronic pain deleted December 28 11:17am DJD (degenerative joint disease), lumbosacral deleted December 28, 2024 11:17am Trochanteric bursitis deleted Dec 11:17am [facility] Work Phone: 1(120) 526-472112-12-2024 Evaluation note* Diagnosis Onset Date Resolution Status Admit Date Acute exacerbation of chroni c obstructive airways disease deleted Dece 2023 9:46am Chronic obstructive pulmonar y disease with (acute) lower respiratory infection deleted August 272023 9:46am Chronic pain acute October 02, 2024 10:36am DJD (degenerative joint disease), lumbosacral acute September 10:36am Trochanteric bursitis acute Sep 10:36am Chronic pain acute October 11:00am DJD (degenerative joint disease), lumbosacral acute November 022024 11:00am Trochanteric bursitis acute Oct 11:00am Chronic pain acute November 29 11:10am DJD (degenerative joint disease), lumbosacral acute November 29, 2024 11:10am Trochanteric bursitis acute Nov 11:10am [facility] Work Phone: 1(919) 295-501211-25-2024 Evaluation note* Diagnosis Onset Date Resolution Status Admit Date Chronic pain acute July 10:33am DJD (degenerative joint disease), lumbosacral acute July 292023 10:33am Trochanteric bursitis acute Jul 10:33am Acute exacerbation of chroni c obstructive airways disease deleted Dece 2023 9:46am Chronic obstructive pulmonar y disease with (acute) lower respiratory infection deleted August 272023 9:46am Chronic pain acute October 02, 2024 10:36am DJD (degenerative joint disease), lumbosacral acute September 10:36am Trochanteric bursitis acute Sep 10:36am Chronic pain acute October 11:00am DJD (degenerative joint disease), lumbosacral acute November 022024 11:00am Trochanteric bursitis acute b ru2024 11:00am [facility] Work Phone: 1(614) 997-679411-06-2024 Evaluation note* Diagnosis Onset Date Resolution Status Admit Date Chronic pain acute July 9:53am DJD (degenerative joint disease), lumbosacral acute August 022023 9:53am Hip pain acute August 02, 2024 9:53am Chronic pain acute July 10:33am DJD (degenerative joint disease), lumbosacral acute July 292023 10:33am Trochanteric bursitis acute Jul 10:33am Acute exacerbation of chroni c obstructive airways disease deleted 2023 9:46am Chronic obstructive pulmonar y disease with (acute) lower respiratory infection deleted August 272023 9:46am Chronic pain acute October 02, 2024 10:36am DJD (degenerative joint disease), lumbosacral acute September 10:36am Trochanteric bursitis acute Sep 10:36am [facility] Work Phone: 1(467) 967-155002-13-2024 Evaluation note* Encounter Date Diagnosis Assessment Notes Treatment Notes Treatment Clinical Notes Oct, LALITA (generalized anxiety disorder) (ICD-10 - F41.1) [employer] Other 02-07-2024 Evaluation note* Encounter Date Diagnosis [...] would like to see the someone in [place] or [place] for another set of eyes to determine if there is anything from a surgical standpoint I can help with her significant pain I am happy to make that referral as well. I again stressed that I do not feel that there is anything from a surgical standpoint that I will be able to offer her. 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 She understands the associated risks [...] note writ ten by Henry Salter MA, Coloring Room Man. Edited and approved by Dr. Barry Valenzuela MD. [employer] Other 09-12-2023 Evaluation note* Encounter Date Diagnosis [...] slowly progress increased activity as pain allows. [employer] Other 08-18-2023 Evaluation note* Encounter Date Diagnosis Assessment Notes Treatment Notes Treatment Clinical Notes Apr, Age-related osteoporosis without current pathological fracture (ICD-10 - M81.0) [employer] Other 06-06-2023 Evaluation note* Encounter Date Diagnosis Assessment Notes Treatment Notes Treatment Clinical Notes Feb, Acute bronchitis due to other specified organisms (ICD-10 - J20.8) [employer] Other 06-02-2023 Evaluation note* Encounter Date Diagnosis [...] Increase use of MICHAELA and add mucolytic [employer] Other 05-30-2023 Evaluation note* Encounter Date Diagnosis Assessment Notes Treatment Notes Treatment Clinical Notes January, 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) [employer] Other 05-16-2023 Evaluation note* Encounter Date Diagnosis [...] loosening, loss of motion, hematoma, wound problems, players club representative pain and stiffness are well known problems [...] M87.022) January, Pre-op exam (ICD-10 - Z01.818) [employer] Other 05-08-2023 Evaluation note* Encounter Date Diagnosis Assessment Notes Treatment Notes Treatment Clinical Notes January, Internal derangement of left shoulder (ICD-10 - M24.812) [employer] Other 05-01-2023 Evaluation note* Encounter Date Diagnosis [...] derangement of left shoulder (ICD-10 - M24.812) [employer] Other 03-20-2023 Evaluation note* Encounter Date Diagnosis [...] Nov, Other chronic pain (ICD-10 - G89.29) [employer] Other 02-24-2023 Evaluation note* Encounter Date Diagnosis Assessment Notes Treatment Notes Treatment Clinical Notes Oct, Mucopurulent chronic bronchitis (ICD-10 - J41.1) [employer] Other 02-23-2023 Evaluation note* Encounter Date Diagnosis [...] educated regarding the risks and benefits of players club representative opioid use. She understands the associated risks [...] note writ ten by Shahla Lopez LPN, Coloring Room Man. Edited and approved by Dr. Barry Valenzuela MD. [employer] Other 02-22-2023 Evaluation note* Encounter Date Diagnosis Assessment Notes Treatment Notes Treatment Clinical Notes Oct, Mucopurulent chronic bronchitis (ICD-10 - J41.1) [employer] Other 02-21-2023 Evaluation note* Encounter Date Diagnosis Assessment Notes Treatment Notes Treatment Clinical Notes Oct, Pernicious anemia (ICD-10 - D51.0) [employer] Other 02-02-2023 Evaluation note* Encounter Date Diagnosis [...] educated regarding the risks and benefits of players club representative opioid use. She understands the associated risks with this medication and agrees that it provides reasonable benefit in regards to her pain control and level of function. This medication was refilled today. Oct, Other Above note writ ten by Shahla Lopez LPN, Coloring Room Man. Edited and approved by Dr. Barry Valenzuela MD. [employer] Other 01-27-2023 Evaluation note* Encounter Date Diagnosis [...] with another xray. She can see my CASE OPERATOR. 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 She understands the associated risks with this medication and agrees that it provides reasonable benefit in regards to her pain control and level of function. This medication was refilled today. Jul, Other spondylosis with radiculopathy, lumbar region (ICD-10 - M47.26) Jul, Trochanteric bursitis of left hip (ICD-10 - M70.62) Jul, Other Above note writ ten by Henry Salter MA, Coloring Room Man. Edited and approved by Dr. Barry Valenzuela MD. [employer] Other 06-15-2022 Evaluation note* Encounter Date Diagnosis [...] educated regarding the risks and benefits of [facility] opioid use. She understands the associated risks with this medication and agrees that it provides reasonable benefit in regards to her pain control and level of function. This medication was refilled today. Feb, Other spondylosis with radiculopathy, lumbar region (ICD-10 - M47.26) Feb, Trochanteric bursitis of left hip (ICD-10 - M70.62) Feb, Other Above note writ ten by Shahla Lopez LPN, Coloring Room Man. Edited and approved by Dr. Barry Valenzuela MD. [employer] Other 05-24-2022 Evaluation note* Encounter Date Diagnosis [...] Arthropathy of right hip (ICD-10 - M16.11) [employer] Other 04-11-2022 Evaluation note* Encounter Date Diagnosis [...] note writ ten by Henry Salter CMA, Coloring Room Man. Edited and approved by Dr. Barry Valenzuela MD. [employer] Other 03-09-2022 Evaluation note* Encounter Date Diagnosis [...] note writ ten by Henry Salter CMA, Coloring Room Man. Edited and approved by Dr. Barry Valenzuela MD. [employer] Other 03-04-2022 Evaluation note* Encounter Date Diagnosis Assessment Notes Treatment Notes Treatment Clinical Notes Nov, Tear of gluteus medius tendon (ICD-10 - S76.019A) [employer] Other 02-11-2022 Evaluation note* Encounter Date Diagnosis [...] Oct, Left hip pain (ICD-10 - M25.552) [employer] Other 02-07-2022 Evaluation note* Encounter Date Diagnosis [...] considering a referral to an orthopedic sports activities foul judge for her hip should this upcoming injection not provide considerable relief. Oct, Other spondylosis with radiculopathy, lumbar region (ICD-10 - M47.26) Patient notes upcoming appointment with neurosurgery. Oct, Other Above note writ ten by Shahla Lopez LPN, Coloring Room Man. Edited and approved by Dr. Barry Valenzuela MD. [employer] Other 01-10-2022 Evaluation note* Encounter Date Diagnosis [...] could consider referral to a orthopedic sports activities foul judge for her hip. Sep, Other chronic pain (ICD-10 - G89.29) Sep, Other Above note writ ten by Henry Salter [facility], Coloring Room Man. Edited and approved by Dr. Barry Valenzuela MD. [employer] Other 12-23-2021 Evaluation note* Encounter Date Diagnosis [...] Aug, Left hip pain (ICD-10 - M25.552) [employer] Other 12-16-2021 Evaluation note* Encounter Date Diagnosis [...] could consider referral to a orthopedic sports activities foul judge. Aug, Other chronic pain (ICD-10 - G89.29) Aug, Other Above note writ ten by Henry Salter CMA, Coloring Room Man. Edited and approved by Dr. Barry Valenzuela MD. [employer] Other 12-07-2021 Evaluation note* Encounter Date Diagnosis [...] Above note writ ten by Tsering MARROQUIN, Coloring Room Man. Edited and approved by Dr. Barry Valenzuela MD. [employer] Other 11-29-2021 Evaluation note* Encounter Date Diagnosis Assessment Notes Treatment Notes Treatment Clinical Notes Jul, Stenosis, spinal, lumbar (ICD-10 - M48.06) [employer] Other 11-19-2021 Evaluation note* Encounter Date Diagnosis Assessment Notes Treatment Notes Treatment Clinical Notes Jul, Left hip pain (ICD-10 - M25.552) [employer] Other 11-18-2021 Evaluation note* Encounter Date Diagnosis Assessment Notes Treatment Notes Treatment Clinical Notes 18 Nov, 2021 Lumbar spondylosis (ICD-10 - M47.816) I have [...] suspect this is the source of pathology [facility] [employer] Other evaluation noteNo InformationNortPenn High[facility] Healthcare [employer] Other Evaluation noteNo assessment information available [facility] Work Phone: Evaluation noteNortPenn Highlands Healthcare [employer] Other Evaluation note* Diagnosis Onset Date Resolution Status Chronic pain acute Inflammation of right sacroiliac joint acute Trochanteric bursitis acute Chronic pain acute DJD (degenerative joint disease), lumbosacral acute Inflammation of right sacroiliac joint acute [facility] Work Phone: Evaluation note* Diagnosis Onset Date Resolution Status Chronic pain acute Inflammation of right sacroiliac joint acute Trochanteric bursitis acute Chronic pain acute DJD (degenerative joint disease), lumbosacral acute Inflammation of right sacroiliac joint acute Chronic obstructive pulmonar y disease with (acute) exacerbation acute Chronic obstructive pulmonar y disease with (acute) lower respiratory infection acute [facility] Work Phone: evaluation note* Diagnosis Onset Date Resolution Status Inflammation of right sacroiliac joint acute Trochanteric bursitis acute DJD (degenerative joint disease), lumbosacral acute Inflammation of right sacroiliac joint acute Chronic bronchitis acute Hypothyroid acute Lumbar spondylosis acute BRET (obstructive sleep apnea) acute [facility] Work Phone: Evaluation note* Diagnosis Onset Date Resolution Status Inflammation of right sacroiliac joint acute Trochanteric bursitis acute DJD (degenerative joint disease), lumbosacral acute Inflammation of right sacroiliac joint acute Chronic bronchitis acute Hypothyroid acute Lumbar spondylosis acute BRET (obstructive sleep apnea) acute DJD (degenerative joint disease), lumbosacral acute Inflammation of right sacroiliac joint acute [facility] Work Phone: evaluation note* Diagnosis Onset Date [...] of chroni c obstructive airways disease noneactive [facility] Work Phone: evaluation note* Diagnosis Onset Date [...] acute Inflammation of right sacroiliac joint acute [facility] Work Phone: Evaluation note* Diagnosis Onset Date [...] acute Inflammation of right sacroiliac joint acute [facility] Work Phone: Evaluation note* Diagnosis Onset Date [...] edema acute BRET (obstructive sleep apnea) acute [facility] Work Phone: Evaluation note* Diagnosis Onset Date [...] acute Inflammation of right sacroiliac joint acute [facility] Work Phone: Evaluation note* Diagnosis Onset Date [...] acute Painful total knee replacement, right acute [facility] Work Phone: Evaluation note* Diagnosis Onset Date [...] joint disease), lumbosacral acute Knee pain acute [facility] Work Phone: Evaluation note* Diagnosis Onset Date [...] joint disease), lumbosacral acute Knee pain acute [facility] Work Phone: Evaluation note* Diagnosis Onset Date [...] joint disease), lumbosacral acute Knee pain acute [facility] Work Phone: Evaluation note* Diagnosis Onset Date [...] joint disease), lumbosacral acute Knee pain acute [facility] Work Phone: Evaluation note* Diagnosis Onset Date [...] Obesity acute BRET (obstructive sleep apnea) acute [facility] Work Phone: Evaluation note* Diagnosis Onset Date Resolution Status Chronic pain acute DJD (degenerative joint disease), lumbosacral acute Painful total knee replacement, right acute Chronic pain acute DJD (degenerative joint disease), lumbosacral acute Chronic pain acute DJD (degenerative joint disease), lumbosacral acute Chronic bronchitis acute LALITA (generalized anxiety disorder) acute Hypothyroid acute Lumbar spondylosis acute Medicare annual wellness visit, subsequent acute Obesity acute BRET (obstructive sleep apnea) acute Osteoporosis acute Screening mammogram for breast cancer acute Chronic pain acute DJD (degenerative joint disease), lumbosacral acute Hip pain acute [facility] Work Phone: Evaluation note* Diagnosis Onset Date Resolution Status Chronic pain acute DJD (degenerative joint disease), lumbosacral acute Chronic pain acute DJD (degenerative joint disease), lumbosacral acute Chronic bronchitis acute LALITA (generalized anxiety disorder) acute Hypothyroid acute Lumbar spondylosis acute Medicare annual wellness visit, subsequent acute Obesity acute BRET (obstructive sleep apnea) acute Osteoporosis acute Screening mammogram for breast cancer acute Chronic pain acute DJD (degenerative joint disease), lumbosacral acute Hip pain acute [facility] Work Phone: Evaluation note* Diagnosis Onset Date Resolution Status Chronic pain acute DJD (degenerative joint disease), lumbosacral acute Chronic pain acute DJD (degenerative joint disease), lumbosacral acute Chronic bronchitis acute LALITA (generalized anxiety disorder) acute Hypothyroid acute Lumbar spondylosis acute Medicare annual wellness visit, subsequent acute Obesity acute BRET (obstructive sleep apnea) acute Osteoporosis acute Screening mammogram for breast cancer acute Chronic pain acute DJD (degenerative joint disease), lumbosacral acute Hip pain acute Chronic pain acute DJD (degenerative joint disease), lumbosacral acute Hip pain acute [facility] Work Phone: Evaluation note* Diagnosis Other polyneuropathy- Primary Pain due to onychomycosis of toenails of both feet [facility] - [facility] Type Description Date [...] [id number] [id number] 03/05/2021 Hospitalization History See above [employer] Other History general Narrative - Reported* Type [...] shoulder, left 02/2023 Hospitalization History See above [place] [employer] Other History general Narrative - ReportedNortP[facility] Healthcare [employer] Other Hospital Discharge instructions Additional Instructions DISCHARGE [...] OTHER -Any problems call the office at [phone] or return to Emergency Room. If you [...] in one week; call the office at [phone] if your appointment has not been made already. 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 551) Referral Organization [facility] [employer] [facility] Referring Provider First Name Barry Referring Provider Last Name Nicolas Referring Provider Specialty Pain Medici ne Referred Organization [facility] Referred Provider Coy Cassidy II Referred Address [address] [place] [address] [place],[address] Referred Provider Specialty Orthopedic S urgery Referral [...] 1 Lumbar spondylosis ( M47.816) Referral Organization [facility]gery Referring Provider First Name Benigno Referring Provider Last Name Marcia Referring Provider Specialty Neurologica l Surgery Referred Organization [facility] t Referred Provider Albin Sweeney Referred Address [address],[address] Referred Provider Specialty Pain Medicin e Referral [...] R SI & BURSA Cough, Chills-COVID Negative- [phone] Reason for Visit Chronic pain Inflammation of [...] R SI & BURSA Cough, Chills-COVID Negative- [phone] 6 month follow up Reason for Visit Inflammation of righ t sacroiliac joint Trochanteric bursitis DJD (degenerative joint disease), lumbosacral Inflammation of right sacroiliac joint Chronic bronchitis Hypothyroid Lumbar spondylosis BRET (obstructive sleep apnea) Chief Complaint M25.551 M25.[address] CASSIDY RIGHT SI & TROCH BURSA INJ/DS F/U AFTER R SI & BURSA Cough, Chills-COVID Negative- [phone] month follow up RIGHT LUMBAR FACET [...] R SI & BURSA Cough, Chills-COVID Negative- [phone] 6 month follow up RIGHT LUMBAR FACET [...] R SI & BURSA Cough, Chills-COVID Negative- [phone] 6 month follow up RIGHT LUMBAR FACET [...] R SI & BURSA Cough, Chills-COVID Negative- [phone] 6 month follow up RIGHT LUMBAR FACET [...] on right leg 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 LEG 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 Reason for Visit Acute exacerbation o f chronic obstructive airways disease DJD (degenerative joint disease), lumbosacral Inflammation of right sacroiliac joint 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 DJD (degenerative joint disease), lumbosacral Inflammation of right sacroiliac joint Acute exacerbation of chronic obstructive airways disease Hypothyroid Lower extremity edema Obesity RBET (obstructive sleep apnea) Retained suture Chronic pain DJD (degenerative joint disease), lumbosacral Knee pain Painful total knee replacement, right Chief Complaint Sinuses 1 MONTH OP SP RT THUMB PAIN 1 MONTH FOLLOW UP leg swelling, lump on right leg 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 LEG PAIN z96.651 t84.84xa Reason [...] on right leg 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 LEG PAIN z96.651 t84.84xa 1 MONTH [...] on right leg 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 LEG PAIN z96.651 t84.84xa 1 MONTH [...] on right leg 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 LEG PAIN z96.651 t84.84xa 1 MONTH [...] n right leg 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 LEG PAIN z96.651 t84.84xa 1 MONTH [...] n right leg 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 LEG PAIN z96.651 t84.84xa 1 MONTH [...] visit, subsequent Obesity BRET (obstructive sleep apnea) Chief Complaint 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 LEG PAIN z96.651 t84.84xa 1 MONTH B12 Shot 1 MONTH B12 Shot wellness 1 MONTH Reason for Visit Chronic pain DJD (degenerative joint disease), lumbosacral Painful total knee replacement, right Chronic pain DJD (degenerative joint disease), lumbosacral Chronic pain DJD (degenerative joint disease), lumbosacral Chronic bronchitis LALITA (generalized anxiety disorder) Hypothyroid Lumbar spondylosis Medicare annual wellness visit, subsequent Obesity BRET (obstructive sleep apnea) Osteoporosis Screening mammogram for breast cancer Chronic pain DJD (degenerative joint disease), lumbosacral Hip pain Chief Complaint 1 MONTH B12 Shot 1 MONTH B12 Shot wellness 1 MONTH Screening Reason for Visit Chronic pain DJD (degenerative joint disease), lumbosacral Chronic pain DJD (degenerative joint disease), lumbosacral Chronic bronchitis LALITA (generalized anxiety disorder) Hypothyroid Lumbar spondylosis Medicare annual wellness visit, subsequent Obesity BRET (obstructive sleep apnea) Osteoporosis Screening mammogram for breast cancer Chronic pain DJD (degenerative joint disease), lumbosacral Hip pain Chief Complaint 1 MONTH B12 Shot 1 MONTH B12 Shot wellness 1 MONTH Screening B12 Shot Reason for Visit Chronic pain DJD (degenerative joint disease), lumbosacral Chronic pain DJD (degenerative joint disease), lumbosacral Chronic bronchitis LALITA (generalized anxiety disorder) Hypothyroid Lumbar spondylosis Medicare annual wellness visit, subsequent Obesity BRET (obstructive sleep apnea) Osteoporosis Screening mammogram for breast cancer Chronic pain DJD (degenerative joint disease), lumbosacral Hip pain Chief Complaint 1 MONTH B12 Shot 1 MONTH B12 Shot wellness 1 MONTH Screening B12 Shot CC Adult Risk Stratification 1 MONTH Reason for Visit Chronic pain DJD (degenerative joint disease), lumbosacral Chronic pain DJD (degenerative joint disease), lumbosacral Chronic bronchitis LALITA (generalized anxiety disorder) Hypothyroid Lumbar spondylosis Medicare annual wellness visit, subsequent Obesity BRET (obstructive sleep apnea) Osteoporosis Screening mammogram for breast cancer Chronic pain DJD (degenerative joint disease), lumbosacral Hip pain Chronic pain DJD (degenerative joint disease), lumbosacral Hip pain Chief Complaint Admit Date Screening July 12, 2024 1 1:14am B12 Shot July 25, 2024 9 :36am CC Adult Risk Stratification June 11:11am 1 MONTH August 02, 2024 9 :53am RECHECK August 21, 2024 10:33am sinus infection/cold 2-3 weeks September 07, 2024 9:46am L lateral leg pain September 29, 2024 1: 00pm RECHECK October 02, 2024 10 :36am Reason for Visit Admit Date Chronic pain August 02, 2024 9 :53am DJD (degenerative joint disease), lumbos acral August 02, 2024 9:53am Hip pain August 02, 2024 9 :53am Chronic pain August 21, 2024 10:33am DJD (degenerative joint disease), lumbos acral August 21, 2024 10:33am Trochanteric bursitis August 21 10:33am Acute exacerbation of chronic obstructiv e airways disease September 07, 2024 9:46am Chronic obstructive pulmonar y disease with (acute) lower respiratory infection September 07, 2024 9:46am Chronic pain October 02, 2024 10 :36am DJD (degenerative joint disease), lumbos acral October 02, 2024 10:36am Trochanteric bursitis October 02, 2024 10:36am Chief Complaint Admit Date B12 Shot July 25, 2024 9 :36am CC Adult Risk Stratification June 11:11am 1 MONTH August 02, 2024 9 :53am RECHECK August 21, 2024 10:33am sinus infection/cold 2-3 weeks September 07, 2024 9:46am RECHECK October 02, 2024 10 :36am L lateral leg pain October 16, 2024 1 :00pm Chief Complaint Admit Date RECHECK August 21, 2024 10:33am sinus infection/cold 2-3 weeks September 07, 2024 9:46am RECHECK October 02, 2024 10 :36am L lateral leg pain October 16, 2024 1 :00pm 1 MONTH November 02, 2024 1 1:00am Reason for Visit Admit Date Chronic pain August 21, 2024 10:33am DJD (degenerative joint disease), lumbos acral August 21, 2024 10:33am Trochanteric bursitis August 21 10:33am Acute exacerbation of chronic obstructiv e airways disease September 07, 2024 9:46am Chronic obstructive pulmonar y disease with (acute) lower respiratory infection September 07, 2024 9:46am Chronic pain October 02, 2024 10 :36am DJD (degenerative joint disease), lumbos acral October 02, 2024 10:36am Trochanteric bursitis October 02, 2024 10:36am Chronic pain November 02, 2024 1 1:00am DJD (degenerative joint disease), lumbos acral November 02, 2024 11:00am Trochanteric bursitis November 02, 2024 11:00am Chief Complaint Admit Date RECHECK August 21, 2024 10:33am sinus infection/cold 2-3 weeks September 07, 2024 9:46am RECHECK October 02, 2024 10 :36am L lateral leg pain October 16, 2024 1 :00pm 1 MONTH November 02, 2024 1 1:00am B12 shot November 13, 2024 9:59am Chief Complaint Admit Date sinus infection/cold 2-3 weeks September 07, 2024 9:46am RECHECK October 02, 2024 10 :36am L lateral leg pain October 16, 2024 1 :00pm 1 MONTH November 02, 2024 1 1:00am B12 shot November 13, 2024 9:59am 1 MONTH November 29, 2024 11:1 0am Reason for Visit Admit Date Acute exacerbation of chronic obstructiv e airways disease September 07, 2024 9:46am Chronic obstructive pulmonar y disease with (acute) lower respiratory infection September 07, 2024 9:46am Chronic pain October 02, 2024 10 :36am DJD (degenerative joint disease), lumbos acral October 02, 2024 10:36am Trochanteric bursitis October 02, 2024 10:36am Chronic pain November 02, 2024 1 1:00am DJD (degenerative joint disease), lumbos acral November 02, 2024 11:00am Trochanteric bursitis November 02, 2024 11:00am Chronic pain November 29, 2024 11:1 0am DJD (degenerative joint disease), lumbos acral November 29, 2024 11:10am Trochanteric bursitis November 29, 2024 11 :10am Chief Complaint Admit Date RECHECK October 02, 2024 10 :36am L lateral leg pain October 16, 2024 1 :00pm 1 MONTH November 02, 2024 1 1:00am B12 shot November 13, 2024 9:59am 1 MONTH November 29, 2024 11:1 0am B12 shot December 12, 2024 10: 40am Reason for Visit Admit Date Chronic pain October 02, 2024 10 :36am DJD (degenerative joint disease), lumbos acral October 02, 2024 10:36am Trochanteric bursitis October 02, 2024 10:36am Chronic pain November 02, 2024 1 1:00am DJD (degenerative joint disease), lumbos acral November 02, 2024 11:00am Trochanteric bursitis November 02, 2024 11:00am Chronic pain November 29, 2024 11:1 0am DJD (degenerative joint disease), lumbos acral November 29, 2024 11:10am Trochanteric bursitis November 29, 2024 11 :10am Chief Complaint Admit Date RECHECK October 02, 2024 10 :36am L lateral leg pain October 16, 2024 1 :00pm 1 MONTH November 02, 2024 1 1:00am B12 shot November 13, 2024 9:59am 1 MONTH November 29, 2024 11:1 0am B12 shot December 12, 2024 10: 40am 6 month f/u December 27, 2024 9:01 am Reason for Visit Admit Date Chronic pain October 02, 2024 10 :36am DJD (degenerative joint disease), lumbos acral October 02, 2024 10:36am Trochanteric bursitis October 02, 2024 10:36am Chronic pain November 02, 2024 1 1:00am DJD (degenerative joint disease), lumbos acral November 02, 2024 11:00am Trochanteric bursitis November 02, 2024 11:00am Chronic pain November 29, 2024 11:1 0am DJD (degenerative joint disease), lumbos acral November 29, 2024 11:10am Trochanteric bursitis November 29, 2024 11 :10am Chronic bronchitis December 27, 2024 9:01 am Chronic kidney disease December 27, 2024 9 :01am LALITA (generalized anxiety disorder) December 27, 2024 9:01am Hypothyroid December 27, 2024 9:01 am Lumbar spondylosis December 27, 2024 9:01 am Obesity December 27, 2024 9:01 am BRET (obstructive sleep apnea) December 27, 2024 9:01am Osteoporosis December 27, 2024 9:01 am Chief Complaint Admit Date RECHECK October 02, 2024 10 :36am L lateral leg pain October 16, 2024 1 :00pm 1 MONTH November 02, 2024 1 1:00am B12 shot November 13, 2024 9:59am 1 MONTH November 29, 2024 11:1 0am B12 shot December 12, 2024 10: 40am 6 month f/u December 27, 2024 9:01 am 1 MONTH December 28, 2024 11:1 7am Reason for Visit Admit Date Chronic pain October 02, 2024 10 :36am DJD (degenerative joint disease), lumbos acral October 02, 2024 10:36am Trochanteric bursitis October 02, 2024 10:36am Chronic pain November 02, 2024 1 1:00am DJD (degenerative joint disease), lumbos acral November 02, 2024 11:00am Trochanteric bursitis November 02, 2024 11:00am Chronic pain November 29, 2024 11:1 0am DJD (degenerative joint disease), lumbos acral November 29, 2024 11:10am Trochanteric bursitis November 29, 2024 11 :10am Chronic kidney disease December 27, 2024 9 :01am Chronic venous insufficiency of lower ex tremity December 27, 2024 9:01am LALITA (generalized anxiety disorder) December 27, 2024 9:01am Hypothyroid December 27, 2024 9:01 am Lumbar spondylosis December 27, 2024 9:01 am Obesity December 27, 2024 9:01 am BRET (obstructive sleep apnea) December 27, 2024 9:01am Osteoporosis December 27, 2024 9:01 am Acute exacerbation of chronic obstructiv e airways disease December 27, 2024 9:01am Chronic obstructive pulmonar y disease with (acute) lower respiratory infection December 27, 2024 9:01am Inflammation of right sacroiliac joint A pril 2024 11:17am Chronic pain December 28, 2024 11:1 7am DJD (degenerative joint disease), lumbos acral December 28, 2024 11:17am Trochanteric bursitis December 28, 2024 11 :17am Chief Complaint Admit Date L lateral leg pain October 16, 2024 1 :00pm 1 MONTH November 02, 2024 1 1:00am B12 shot November 13, 2024 9:59am 1 MONTH November 29, 2024 11:1 0am B12 shot December 12, 2024 10: 40am 6 month f/u December 27, 2024 9:01 am 1 MONTH December 28, 2024 11:1 7am 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 January 01, 2025 8:12am OP SP RT THUMB PAIN January 01, 2025 11:2 7am Reason for Visit Admit Date Chronic pain November 02, 2024 1 1:00am DJD (degenerative joint disease), lumbos acral November 02, 2024 11:00am Trochanteric bursitis November 02, 2024 11:00am Chronic pain November 29, 2024 11:1 0am DJD (degenerative joint disease), lumbos acral November 29, 2024 11:10am Trochanteric bursitis November 29, 2024 11 :10am Chronic kidney disease December 27, 2024 9 :01am Chronic venous insufficiency of lower ex tremity December 27, 2024 9:01am LALITA (generalized anxiety disorder) December 27, 2024 9:01am Hypothyroid December 27, 2024 9:01 am Lumbar spondylosis December 27, 2024 9:01 am Obesity December 27, 2024 9:01 am BRET (obstructive sleep apnea) December 27, 2024 9:01am Osteoporosis December 27, 2024 9:01 am Acute exacerbation of chronic obstructiv e airways disease December 27, 2024 9:01am Chronic obstructive pulmonar y disease with (acute) lower respiratory infection December 27, 2024 9:01am Inflammation of right sacroiliac joint A pril 2024 11:17am 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 January 01, 2025 11:27am Reason for Visit Admit Date Chronic pain November 02, 2024 1 1:00am DJD (degenerative joint disease), lumbos acral November 02, 2024 11:00am Trochanteric bursitis November 02, 2024 11:00am Chronic pain November 29, 2024 11:1 0am DJD (degenerative joint disease), lumbos acral November 29, 2024 11:10am Trochanteric bursitis November 29, 2024 11 :10am Chronic kidney disease December 27, 2024 9 :01am Chronic venous insufficiency of lower ex tremity December 27, 2024 9:01am LALITA (generalized anxiety disorder) December 27, 2024 9:01am Hypothyroid December 27, 2024 9:01 am Lumbar spondylosis December 27, 2024 9:01 am Obesity December 27, 2024 9:01 am BRET (obstructive sleep apnea) December 27, 2024 9:01am Osteoporosis December 27, 2024 9:01 am Acute exacerbation of chronic obstructiv e airways disease December 27, 2024 9:01am Chronic obstructive pulmonar y disease with (acute) lower respiratory infection December 27, 2024 9:01am Inflammation of right sacroiliac joint A pril 2024 11:17am 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 January 01, 2025 11:27am Bilateral hand pain January 01, 2025 11:2 7am Chief Complaint Admit Date 1 MONTH November 02, 2024 1 1:00am B12 shot November 13, 2024 9:59am 1 MONTH November 29, 2024 11:1 0am B12 shot December 12, 2024 10: 40am 6 month f/u December 27, 2024 9:01 am 1 December 28, 2024 11:1 7am 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 January 01, 2025 8:12am OP SP RT THUMB PAIN January 01, 2025 11:2 7am B12 Shot January 15, 2025 9:3 2am Chief Complaint Admit Date 1 November 02, 2024 1 1:00am B12 shot November 13, 2024 9:59am 1 MONTH November 29, 2024 11:1 0am B12 shot December 12, 2024 10: 40am 6 month f/u December 27, 2024 9:01 am 1 MONTH December 28, 2024 11:1 7am 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 January 01, 2025 8:12am OP SP RT THUMB PAIN January 01, 2025 11:2 7am B12 Shot January 15, 2025 9:3 2am 1 January 25, 2025 11:08a m Reason for Visit Admit Date Chronic pain November 02, 2024 1 1:00am DJD (degenerative joint disease), lumbos acral November 02, 2024 11:00am Trochanteric bursitis November 02, 2024 11:00am Chronic pain November 29, 2024 11:1 0am DJD (degenerative joint disease), lumbos acral November 29, 2024 11:10am Trochanteric bursitis November 29, 2024 11 :10am Chronic kidney disease December 27, 2024 9 :01am Chronic venous insufficiency of lower ex tremity December 27, 2024 9:01am LALITA (generalized anxiety disorder) December 27, 2024 9:01am Hypothyroid December 27, 2024 9:01 am Lumbar spondylosis December 27, 2024 9:01 am Obesity December 27, 2024 9:01 am BRET (obstructive sleep apnea) December 27, 2024 9:01am Osteoporosis December 27, 2024 9:01 am Acute exacerbation of chronic obstructiv e airways disease December 27, 2024 9:01am Chronic obstructive pulmonar y disease with (acute) lower respiratory infection December 27, 2024 9:01am Inflammation of right sacroiliac joint A pril 2024 11:17am 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 January 01, 2025 11:27am Bilateral hand pain January 01, 2025 11:2 7am Inflammation of right sacroiliac joint M ay 2024 11:08am Chief Complaint Admit Date 1 MONTH November 29, 2024 11:1 0am B12 shot December 12, 2024 10: 40am 6 month f/u December 27, 2024 9:01 am 1 MONTH December 28, 2024 11:1 7am 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 January 01, 2025 8:12am OP SP RT THUMB PAIN January 01, 2025 11:2 7am B12 Shot January 15, 2025 9:3 2am 1 January 25, 2025 11:08a m B12 Shot February 20, 2025 10:37 am Reason for Visit Admit Date Chronic pain November 29, 2024 11:1 0am DJD (degenerative joint disease), lumbos acral November 29, 2024 11:10am Trochanteric bursitis November 29, 2024 11 :10am Chronic kidney disease December 27, 2024 9 :01am Chronic venous insufficiency of lower ex tremity December 27, 2024 9:01am LALITA (generalized anxiety disorder) December 27, 2024 9:01am Hypothyroid December 27, 2024 9:01 am Lumbar spondylosis December 27, 2024 9:01 am Obesity December 27, 2024 9:01 am BRET (obstructive sleep apnea) December 27, 2024 9:01am Osteoporosis December 27, 2024 9:01 am Acute exacerbation of chronic obstructiv e airways disease December 27, 2024 9:01am Chronic obstructive pulmonar y disease with (acute) lower respiratory infection December 27, 2024 9:01am Inflammation of right sacroiliac joint A pril 2024 11:17am 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 January 01, 2025 11:27am Bilateral hand pain January 01, 2025 11:2 7am Chronic pain January 25, 2025 11:08a m DJD (degenerative joint disease), lumbos acral January 25, 2025 11:08am Trochanteric bursitis January 25, 2025 11:0 8am Chief Complaint Admit Date 1 MONTH November 29, 2024 11:1 0am B12 shot December 12, 2024 10: 40am 6 month f/u December 27, 2024 9:01 am 1 December 28, 2024 11:1 7am 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 January 01, 2025 8:12am OP SP RT THUMB PAIN January 01, 2025 11:2 7am B12 Shot January 15, 2025 9:3 2am 1 MONTH January 25, 2025 11:08a m B12 Shot February 20, 2025 10:37 am 1 February 21, 2025 10:58 am Reason for Visit Admit Date Chronic pain November 29, 2024 11:1 0am DJD (degenerative joint disease), lumbos acral November 29, 2024 11:10am Trochanteric bursitis November 29, 2024 11 :10am Chronic kidney disease December 27, 2024 9 :01am Chronic venous insufficiency of lower ex tremity December 27, 2024 9:01am LALITA (generalized anxiety disorder) December 27, 2024 9:01am Hypothyroid December 27, 2024 9:01 am Lumbar spondylosis December 27, 2024 9:01 am Obesity December 27, 2024 9:01 am BRET (obstructive sleep apnea) December 27, 2024 9:01am Osteoporosis December 27, 2024 9:01 am Acute exacerbation of chronic obstructiv e airways disease December 27, 2024 9:01am Chronic obstructive pulmonar y disease with (acute) lower respiratory infection December 27, 2024 9:01am Inflammation of right sacroiliac joint A pril 2024 11:17am 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 January 01, 2025 11:27am Bilateral hand pain January 01, 2025 11:2 7am Chronic pain January 25, 2025 11:08a m DJD (degenerative joint disease), lumbos acral January 25, 2025 11:08am Trochanteric bursitis January 25, 2025 11:0 8am Chronic pain February 21, 2025 10:58 am DJD (degenerative joint disease), lumbos acral February 21, 2025 10:58am Trochanteric bursitis February 21, 2025 10: 58am Chief Complaint Admit Date 6 month f/u December 27, 2024 9:01 am 1 MONTH December 28, 2024 11:1 7am 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 January 01, 2025 8:12am OP SP RT THUMB PAIN January 01, 2025 11:2 7am B12 Shot January 15, 2025 9:3 2am 1 MONTH January 25, 2025 11:08a m B12 Shot February 20, 2025 10:37 am 1 month February 21, 2025 10:58 am B12 shot March 26, 2025 9:15 am Reason for Visit Admit Date Chronic kidney disease December 27, 2024 9 :01am Chronic venous insufficiency of lower ex tremity December 27, 2024 9:01am LALITA (generalized anxiety disorder) December 27, 2024 9:01am Hypothyroid December 27, 2024 9:01 am Lumbar spondylosis December 27, 2024 9:01 am Obesity December 27, 2024 9:01 am BRET (obstructive sleep apnea) December 27, 2024 9:01am Osteoporosis December 27, 2024 9:01 am Acute exacerbation of chronic obstructiv e airways disease December 27, 2024 9:01am Chronic obstructive pulmonar y disease with (acute) lower respiratory infection December 27, 2024 9:01am Inflammation of right sacroiliac joint A pril 2024 11:17am 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 January 01, 2025 11:27am Bilateral hand pain January 01, 2025 11:2 7am Chronic pain January 25, 2025 11:08a m DJD (degenerative joint disease), lumbos acral January 25, 2025 11:08am Trochanteric bursitis January 25, 2025 11:0 8am Chronic pain February 21, 2025 10:58 am DJD (degenerative joint disease), lumbos acral February 21, 2025 10:58am Trochanteric bursitis February 21, 2025 10: 58am Chief Complaint Admit Date 1 MONTH December 28, 2024 11:1 7am 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 January 01, 2025 8:12am OP SP RT THUMB PAIN January 01, 2025 11:2 7am B12 Shot January 15, 2025 9:3 2am 1 MONTH January 25, 2025 11:08a m B12 Shot February 20, 2025 10:37 am 1 month February 21, 2025 10:58 am B12 shot March 26, 2025 9:15 am 1 March 28, 2025 10:56 am Reason for Visit Admit Date Inflammation of right sacroiliac joint A pril 2024 11:17am 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 January 01, 2025 11:27am Bilateral hand pain January 01, 2025 11:2 7am Chronic pain January 25, 2025 11:08a m DJD (degenerative joint disease), lumbos acral January 25, 2025 11:08am Trochanteric bursitis January 25, 2025 11:0 8am Chronic pain February 21, 2025 10:58 am DJD (degenerative joint disease), lumbos acral February 21, 2025 10:58am Trochanteric bursitis February 21, 2025 10: 58am Bilateral knee pain March 28, 2025 10:56 am Chronic pain March 28, 2025 10:56 am DJD (degenerative joint disease), lumbos acral March 28, 2025 10:56am Trochanteric bursitis March 28, 2025 10: 56am Chief Complaint Admit Date 1 MONTH January 25, 2025 11:08a m B12 Shot February 20, 2025 10:37 am 1 month February 21, 2025 10:58 am B12 shot March 26, 2025 9:15 am 1 MONTH March 28, 2025 10:56 am [place] HAND PAIN WX [facility] April 16 11:19am Reason for Visit Admit Date Chronic pain January 25, 2025 11:08a m DJD (degenerative joint disease), lumbos acral January 25, 2025 11:08am Trochanteric bursitis January 25, 2025 11:0 8am Chronic pain February 21, 2025 10:58 am [...] Bilateral carpal tunnel syndrome April [id number] 11:19am Chief Complaint Admit Date B12 Shot February 20, 2025 10:37 am 1 month February 21, 2025 10:58 am B12 shot March 26, 2025 9:15 am 1 MONTH March 28, 2025 10:56 am [place] HAND PAIN WX [facility] April 16 11:19am 1 MONTH April 30, 2025 10: 48am Reason for Visit Admit Date Chronic pain [...] Bilateral carpal tunnel syndrome April [id number] 11:19am Bilateral knee pain April 30, 2025 10: 48am Chronic pain April 30, 2025 10: 48am DJD (degenerative joint disease), lumbos acral April 30, 2025 10:48am Trochanteric bursitis April 30, 2025 1 0:48am Chief Complaint Admit Date B12 Shot February 20, 2025 10:37 am 1 month February 21, 2025 10:58 am B12 shot March 26, 2025 9:15 am 1 MONTH March 28, 2025 10:56 am [place] HAND PAIN WX [facility] April 16 11:19am 1 MONTH April 30, [...] Trochanteric bursitis April 30, 2025 1 0:48am Chief Complaint Admit Date B12 Shot February 20, 2025 10:37 am 1 month February 21, 2025 10:58 am B12 shot March 26, 2025 9:15 am 1 MONTH March 28, 2025 10:56 am [place] HAND PAIN WX [facility] April 16 11:19am 1 MONTH April 30, 2025 10: 48am B12 Shot May 03, 2025 12: 00pm OP SP RECHECK HIP PAIN PER T NICOLAS Ward 2024 11:32am M25.561 - Pain in right knee April 12:14pm Reason for Visit Admit Date Chronic pain [...] Trochanteric bursitis April 30, 2025 1 0:48am Pernicious anemia May 03, 2025 12: 00pm Reason for [...] Trochanteric bursitis April 30, 2025 1 0:48am Pernicious anemia May 03, 2025 12: 00pm Painful total knee replacement, right Au 2024 11:32am Chief Complaint Admit Date B12 shot March 26, 2025 9:15 am 1 MONTH March 28, 2025 10:56 am [place] HAND PAIN WX [facility] April 16 11:19am 1 MONTH April 30, 2025 10: 48am B12 Shot May 03, 2025 12: 00pm OP SP RECHECK HIP PAIN PER T FELTER [facility] 2024 11:32am M25.561 - Pain in right knee April 12:14pm 4-6 WEEKS May 30, 2025 11:22am Reason for Visit Admit Date Bilateral knee pain March 28, 2025 10:56 [...] Trochanteric bursitis April 30, 2025 1 0:48am Pernicious anemia May 03, 2025 12: 00pm Painful total knee replacement, right Au [place] 2024 11:32am 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 May 30, 2025 11:22am Bilateral carpal tunnel syndrome Septemb 2024 11:22am Chief Complaint Admit Date B12 shot March 26, 2025 9:15 am 1 MONTH March 28, 2025 10:56 am [place] HAND PAIN WX [facility] April 16 11:19am 1 MONTH April 30, 2025 10: 48am B12 Shot May 03, 2025 12: 00pm OP SP RECHECK HIP PAIN PER T FELTER [facility] 2024 11:32am M25.561 - Pain in right knee April 12:14pm 4-6 WEEKS May 30, 2025 11:22am 1 MONTH May 31, 2025 11:19am Reason for Visit Admit Date Bilateral knee pain March 28, 2025 10:56 [...] Trochanteric bursitis April 30, 2025 1 0:48am Pernicious anemia May 03, 2025 12: 00pm Painful total knee replacement, right Au 2024 11:32am 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 May 30, 2025 11:22am Bilateral carpal tunnel syndrome Septemb 2024 11:22am Right hip pain May 31, 2025 11:19am Chronic pain May 31, 2025 11:19am DJD (degenerative joint disease), lumbos acral May 31, 2025 11:19am Trochanteric bursitis May 31 11:19am Additional Source Comments INFORMATION SOURCE (unrecogn ized section and content) DATE CREATED AUTHOR 04/15/2018 [facility] DATE CREATED AUTHOR AUTHOR'S ORGANIZ ATION 06/22/2018 [facility] DATE CREATED AUTHOR AUTHOR'S ORGANIZ ATION 07/04/2018 [facility] DATE CREATED AUTHOR AUTHOR'S ORGANIZ ATION 12/07/2022 [facility] pital DATE CREATED AUTHOR AUTHOR'S ORGANIZ ATION 03/20/2025 [facility] EPIC DATE CREATED AUTHOR AUTHOR'S ORGANIZ ATION 05/18/2025 [facility] REASON FOR VISIT (unrecogniz ed section and content) Reason Comments DM Foot Care Dm nail care OP SP RT HIP PAINUpdateBilateral Hand Painmammogram rsultsmedicationRecheck L ShoulderLab ResultsCOVID Negativecongestion, [...] Chucho Saravia DO Primary Care Provider Active Barry Patel MD Attending Provider Active Team Status: Inactive Member Role Status Dates Chucho Saravia DO Primary Care Provider Active Barry Patel MD Attending Provider Active Team Status: Inactive Member Role Status Dates Chucho Saravia DO Primary Care Provider, Referring Pr [...] DO Primary Care Provider Active Start: May 08, [...] June 26, 2024 End: June 26, 2024 Team Status: Active Member Role Status Ann Saravia DO Primary Care Provide r, Attending Provider Active Start: June 27, 2024 Team Status: Inactive Member Role Status Dates Chucho Saravia DO Primary Care Provider Active Start: July 05, 2024 End: July 05, 2024 Barry Valenzuela MD Attending Provider Active Sta rt: July 05, 2024 End: July 05, 2024 Team Status: Inactive Member Role Status Dates Chucho Saravia DO Primary Care Provide r, Attending Provider Active Start: July 12, 2024 End: July 12, 2024 Team Status: Inactive Member Role Status Dates Chucho Saravia DO Primary Care Provide r, Attending Provider Active Start: July 25, 2024 End: July 25, 2024 Team Status: Active Member Role Status Dates Chucho Saravia DO Primary Care Provide r, Attending Provider Active Start: July 26, 2024 Team Status: Inactive Member Role Status Ann Saravia DO Primary Care Provider Active Start: August 02, 2024 End: August 02, 2024 Barry Valenzuela MD Attending Provider Active Sta rt: August 02, 2024 End: August 02, 2024 Team Status: Active Member Role Status Ann Saravia DO Primary Care Provide r, Attending Provider Active Start: August 03, 2024 Team Status: Inactive Member Role Status Ann Saravia DO Primary Care Provider Active Start: August 21, 2024 End: August 21, 2024 Barry Valenzuela MD Attending Provider Active Sta rt: August 21, 2024 End: August 21, 2024 Team Status: Inactive Member Role Status Ann Saravia DO Primary Care Provide r, Attending Provider Active Start: September 07, 2024 End: September 07, 2024 Team Status: Active Member Role Status Ann Saravia DO Primary Care Provider Active Start: September 29, 2024 Barry Valenzuela MD Attending Provider Active Sta rt: September 29, 2024 Team Status: Inactive Member Role Status Dates Chucho Saravia DO Primary Care Provider Active Start: October 02, 2024 End: October 02, 2024 Barry Valenzuela MD Attending Provider Active Sta rt: October 02, 2024 End: October 02, 2024 Team Status: Inactive Member Role Status Ann Saravia DO Primary Care Provider Active Start: October 16, 2024 End: October 16, 2024 Barry Valenzuela MD Attending Provider Active Sta rt: October 16, 2024 End: October 16, 2024 Team Status: Inactive Member Role Status Dates Chucho Saravia DO Primary Care Provider Active Start: November 02, 2024 End: November 02, 2024 Barry Valenzuela MD Attending Provider Active Sta rt: November 02, 2024 End: November 02, 2024 Team Status: Active Member Role Status Dates Chucho Saravia DO Primary Care Provide r, Attending Provider Active Start: November 10, 2024 Team Status: Inactive Member Role Status Dates Chucho Saravia DO Primary Care Provide r, Attending Provider Active Start: November 13, 2024 End: November 13, 2024 Team Status: Inactive Member Role Status Dates Chucho Saravia DO Primary Care Provider Active Start: November 29, 2024 End: November 29, 2024 Barry Valenzuela MD Attending Provider Active Sta rt: November 29, 2024 End: November 29, 2024 Team Status: Inactive Member Role Status Dates Chucho Saravia DO Primary Care Provide r, Attending Provider Active Start: December 12, 2024 End: December 12, 2024 Team Status: Active Member Role Status Dates Chucho Saravia DO Primary Care Provide r, Attending Provider Active Start: December 21, 2024 Team Status: Inactive Member Role Status Ann Saravia DO Primary Care Provide r, Attending Provider Active Start: December 27, 2024 End: December 27, 2024 Team Status: Inactive Member Role Status Ann Saravia DO Primary Care Provider Active Start: December 28, 2024 End: December 28, 2024 Barry Valenzuela MD Attending Provider Active Sta rt: December 28, 2024 End: December 28, 2024 Team Status: Active Member Role Status Ann Patel MD Attending Provider Active Star t: January 01, 2025 Chucho Saravia DO Primary Care Provider Active Start: January 01, 2025 Team Status: Inactive Member Role Status Ann Saravia DO Primary Care Provider Active Start: January 01, 2025 End: January 01, 2025 Barry Patel MD Attending Provider Active Star t: January 01, 2025 End: January 01, 2025 Team Status: Inactive Member Role Status Dates Barry Patel MD Attending Provider Active Star t: January 01, 2025 End: January 01, 2025 Chucho Saravia DO Primary Care Provider Active Start: January 01, 2025 End: January 01, 2025 Team Status: Inactive Member Role Status Ann Saravia DO Primary Care Provide r, Attending Provider Active Start: January 15, 2025 End: January 15, 2025 Team Status: Inactive Member Role Status Ann Saravia DO Primary Care Provider Active Start: January 25, 2025 End: January 25, 2025 Barry Valenzuela MD Attending Provider Active Sta rt: January 25, 2025 End: January 25, 2025 Team Status: Inactive Member Role Status Dates Chucho Saravia DO Primary Care Provide r, Attending Provider Active Start: February 20, 2025 End: February 20, 2025 Team Status: Inactive Member Role Status Dates Chucho Saravia DO Primary Care Provider Active Start: February 21, 2025 End: February 21, 2025 Barry Valenzuela MD Attending Provider Active Sta rt: February 21, 2025 End: February 21, 2025 Link Trainer Maintenance Man Relationship Specialty Start Date End Date Chucho Saravia DO [address] [place] [address] PCP - General Internal Medicine 03/17/23 Link Trainer Maintenance Man Relationship Specialty Start Date End Date Chucho Saravia DO [address] [place] [id number] PCP - General Internal Medicine 03/17/23 Team Status: Inactive Member Role Status Dates Chucho Saravia DO Primary Care Provider Active Start: December 27, 2024 End: December 27, 2024 Chucho Saravia DO Attending Provider Active Sta rt: December 27, 2024 End: December 27, 2024 Team Status: Inactive Member Role Status Dates Chucho Saravia DO Primary Care Provider Active Start: January 15, 2025 End: January 15, 2025 Chucho Saravia DO Attending Provider Active Sta rt: January 15, 2025 End: January 15, 2025 Team Status: Inactive Member Role Status Dates Chucho Saravia DO Primary Care Provider Active Start: February 20, 2025 End: February 20, 2025 Chucho Saravia DO Attending Provider Active Sta rt: February 20, 2025 End: February 20, 2025 Team Status: Inactive Member Role Status Dates Chucho Saravia DO Primary Care Provider Active Start: March 26, 2025 End: March 26, 2025 Chucho Saravia DO Attending Provider Active Sta rt: March 26, 2025 End: March 26, 2025 Team Status: Inactive Member Role Status Dates Chucho Saravia DO Primary Care Provider Active Start: March 28, 2025 End: March 28, 2025 Barry Valenzuela MD Attending Provider Active Sta rt: March 28, 2025 End: March 28, 2025 Team Status: Inactive Member Role Status Dates Chucho Saravia DO Primary Care Provider Active Start: April 16, 2025 End: April 16, 2025 Apryl Mclean MD Attending Provider Active Start: April 16, 2025 End: April 16, 2025 Team Status: Inactive Member Role Status Dates Chucho Saravia DO Primary Care Provider Active Start: April 30, 2025 End: April 30, 2025 Barry Valenzuela MD Attending Provider Active Sta rt: April 30, 2025 End: April 30, 2025 Team Status: Inactive Member Role Status Dates Chucho Saravia DO Primary Care Provider Active Start: May 03, 2025 End: May 03, 2025 Mouna Rees APRN CASE OPERATOR-C Attending Provider Act arlet Start: May 03, 2025 End: May 03, 2025 Team Status: Active Member Role Status Dates Chucho Saravia DO Primary Care Provider Active Start: May 08, 2025 Chucho Saravia DO Attending Provider Active Sta rt: May 08, 2025 Team Status: Inactive Member Role Status Dates Chucho Saravia DO Primary Care Provider Active Start: May 16, 2025 End: May 16, 2025 Coy Cassidy II, MD Attending Provider Active Start: May 16, 2025 End: May 16, 2025 Team Status: Active Member Role Status Dates Chucho Saravia DO Primary Care Provider Active Start: May 16, 2025 Coy Cassidy II, MD Attending Provider Active Start: May 16, 2025 Team Status: Inactive Member Role Status Dates Chucho Saravia DO Primary Care Provider Active Start: May 30, 2025 End: May 30, 2025 Apryl Mclean MD Attending Provider Active Start: May 30, 2025 End: May 30, 2025 Team Status: Inactive Member Role Status Dates Chucho Saravia DO Primary Care Provider Active Start: May 31, 2025 End: May 31, 2025 Barry Valenzuela MD Attending Provider Active Sta rt: May 31, 2025 End: May 31, 2025 Goals (unrecognized section and content) Goals may [...] BE BASED ON THE PRIMARY CLINICAL RECORDS. [facility]. provides no warranty or guarantee of the accuracy or completeness of information in this document.
--- NOTE | 2025-06-13 11:23 | XR_ITS ---
The [address] [address] Patient Name: NORIS ARCE MRN: [id number] date: 1945 Sex: F Assigned Patient Location: ER Current Patient Location: ER Accession/Order Number: [id number] Exam Date: 06/13/2025 11:33 Report Date: 06/13/2025 12:35 At the request of: GUERITA ALEXANDER MD Procedure: XR elbow LT min 3V CLINICAL DATA: Patient fell down 3 stairs and has left shoulder, elbow and hip pain. LEFT SHOULDER - 3 views COMPARISON: Chest x-ray 04/01/2024 AP, Y and Grashey views were obtained. 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 As visualized, the hardware appears intact and in appropriate position. The bony structures are osteopenic. There is no definite acute fracture or dislocation. Is mild degenerative change at the acromioclavicular joint. There are no significant soft tissue abnormalities. XR/XR elbow LT min 3V IMPRESSION: SATISFACTORY APPEARANCE OF SHOULDER PROSTHESIS. NO ACUTE BONY INJURY. LEFT ELBOW - 3 views COMPARISON: None AP, lateral and oblique views were obtained. There is osteopenia. The lateral view slightly rotated. No acute fracture or dislocation is noted. No elbow effusion or focal soft tissue swelling is seen. IMPRESSION: NO ACUTE BONY INJURY. SACRUM AND COCCYX -3 views COMPARISON: Lumbar spine and pelvis 11/16/2019 Lateral as well as AP views in upward and downward projection were obtained. There is osteopenia slightly limits evaluation. There is prior lumbosacral fusion with posterior rods, pedicle screws and an interbody fusion device. No fracture or displacement is identified. There is levoscoliotic curvature and degenerative change at the lower imaged lumbar spine. The SI joints and sacral foramen appear intact. There is minor SI joint sclerosis, greater on left. Patient has a right hip prosthesis. No soft tissue abnormalities are seen. Atherosclerotic plaque is visualized. IMPRESSION: OSTEOPENIA, POSTOPERATIVE AND DEGENERATIVE CHANGES. NO ACUTE BONY INJURY. Impression dictated by: Tomeka Obando M.D. 06/13/2025 12:35 PM Dictation Location: [employer] Electronically authenticated by: [id number] Y Date: 06/13/2025 12:35
--- NOTE | 2025-06-13 11:23 | XR_ITS ---
The [address] [address] Patient Name: NORIS ARCE MRN: [id number] date: 1945 Sex: F Assigned Patient Location: ER Current Patient Location: ER Accession/Order Number: [id number] Exam Date: 06/13/2025 11:33 Report Date: 06/13/2025 12:35 At the request of: GUERITA ALEXANDER MD Procedure: XR elbow LT min 3V CLINICAL DATA: Patient fell down 3 stairs and has left shoulder, elbow and hip pain. LEFT SHOULDER - 3 views COMPARISON: Chest x-ray 04/01/2024 AP, Y and Grashey views were obtained. 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 As visualized, the hardware appears intact and in appropriate position. The bony structures are osteopenic. There is no definite acute fracture or dislocation. Is mild degenerative change at the acromioclavicular joint. There are no significant soft tissue abnormalities. XR/XR shoulder LT min 2V IMPRESSION: SATISFACTORY APPEARANCE OF SHOULDER PROSTHESIS. NO ACUTE BONY INJURY. LEFT ELBOW - 3 views COMPARISON: None AP, lateral and oblique views were obtained. There is osteopenia. The lateral view slightly rotated. No acute fracture or dislocation is noted. No elbow effusion or focal soft tissue swelling is seen. IMPRESSION: NO ACUTE BONY INJURY. SACRUM AND COCCYX -3 views COMPARISON: Lumbar spine and pelvis 11/16/2019 Lateral as well as AP views in upward and downward projection were obtained. There is osteopenia slightly limits evaluation. There is prior lumbosacral fusion with posterior rods, pedicle screws and an interbody fusion device. No fracture or displacement is identified. There is levoscoliotic curvature and degenerative change at the lower imaged lumbar spine. The SI joints and sacral foramen appear intact. There is minor SI joint sclerosis, greater on left. Patient has a right hip prosthesis. No soft tissue abnormalities are seen. Atherosclerotic plaque is visualized. IMPRESSION: OSTEOPENIA, POSTOPERATIVE AND DEGENERATIVE CHANGES. NO ACUTE BONY INJURY. Impression dictated by: Tomeka Obando M.D. 06/13/2025 12:35 PM Dictation Location: [email or web address] Electronically authenticated by: [id number] Y Date: 06/13/2025 12:35
--- NOTE | 2025-06-13 11:23 | CT_ITS ---
The [address] [address] Patient Name: NORIS ARCE MRN: [id number] date: 1945 Sex: F Assigned Patient Location: ER Current Patient Location: ER Accession/Order Number: [id number] Exam Date: 06/13/2025 11:51 Report Date: 06/13/2025 12:26 At the request of: GUERITA ALEXANDER MD Procedure: CT cervical spine wo con CLINICAL DATA: Patient fell down 2 stairs and hit head on concrete. Clinical data: Patient fell down 2 stairs and hit head on concrete. CT BRAIN WITHOUT CONTRAST: COMPARISON: None TECHNIQUE: Contiguous axial unenhanced images were obtained through the brain. This CT exam was performed using one or more following dose reduction techniques: Automated exposure control, adjustment of the mA and/or kV according to patient size, or use of iterative reconstruction technique. FINDINGS: There is mild cortical atrophy. The ventricles are within normal limits for size and position. Physiologic basal ganglia calcifications are seen. Minimal microvascular changes are noted. There are no additional areas of abnormal attenuation within the brain. There is a small area of increased attenuation with adjacent calcification within the anterior interhemispheric fissure. A small amount of blood is not excluded. No additional suspected hemorrhage, mass effect or extra-axial collections are seen. The calvarium is intact. Minor ethmoid mucosal thickening is visualized, greater on the right. The remaining imaged paranasal sinuses and mastoid air cells are clear. Carotid siphon plaque is present. Scalp swelling and hematoma are visualized at the back of head on the left. CT/CT head/brain wo con IMPRESSION: AGE-RELATED CHANGES. POSSIBLE TINY ANTERIOR INTERHEMISPHERIC BLEED. FOLLOW-UP IS SUGGESTED TO ASSESS FOR RESOLUTION. CT CERVICAL SPINE WITHOUT CONTRAST WITH 3D RECONSTRUCTIONS: COMPARISON: None TECHNIQUE: Spiral axial unenhanced images were obtained through the cervical spine. Sagittal, coronal and 3D volume-rendered reconstructions were also reviewed. This CT exam was performed using one or more following dose reduction techniques: Automated exposure control, adjustment of the mA and/or kV according to patient size, or use of iterative reconstruction technique. FINDINGS: No acute compression fractures are visualized. A potential bone island is seen at the C1 lateral mass on the left. There is slight anterolisthesis of C7 on T1 and T1 on T2. There is slight disc space narrowing at C5-6 and moderate at C6-7 where there is also endplate spurring and sclerosis. Moderate bilateral facet disease is noted. The atlantoaxial relationship is maintained. No prevertebral soft tissue swelling is seen. Carotid artery plaque is visualized. There are tiny shotty cervical lymph nodes. The upper imaged lungs show no contributory findings. IMPRESSION: DEGENERATIVE CHANGES, GREATEST AT C6-7. NO ACUTE BONY INJURY. Impression dictated by: Tomeka Obando M.D. 06/13/2025 12:26 PM Dictation Location: [email or web address] Electronically authenticated by: [id number] Y Date: 06/13/2025 12:26
--- NOTE | 2025-06-13 11:23 | XR_ITS ---
The [address] [address] Patient Name: NORIS ARCE MRN: [id number] date: 1945 Sex: F Assigned Patient Location: ER Current Patient Location: ER Accession/Order Number: [id number] Exam Date: 06/13/2025 11:33 Report Date: 06/13/2025 12:35 At the request of: GUERITA ALEXANDER MD Procedure: XR elbow LT min 3V CLINICAL DATA: Patient fell down 3 stairs and has left shoulder, elbow and hip pain. LEFT SHOULDER - 3 views COMPARISON: Chest x-ray 04/01/2024 AP, Y and Grashey views were obtained. 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 As visualized, the hardware appears intact and in appropriate position. The bony structures are osteopenic. There is no definite acute fracture or dislocation. Is mild degenerative change at the acromioclavicular joint. There are no significant soft tissue abnormalities. XR/XR sacrum coccyx min 2V IMPRESSION: SATISFACTORY APPEARANCE OF SHOULDER PROSTHESIS. NO ACUTE BONY INJURY. LEFT ELBOW - 3 views COMPARISON: None AP, lateral and oblique views were obtained. There is osteopenia. The lateral view slightly rotated. No acute fracture or dislocation is noted. No elbow effusion or focal soft tissue swelling is seen. IMPRESSION: NO ACUTE BONY INJURY. SACRUM AND COCCYX -3 views COMPARISON: Lumbar spine and pelvis 11/16/2019 Lateral as well as AP views in upward and downward projection were obtained. There is osteopenia slightly limits evaluation. There is prior lumbosacral fusion with posterior rods, pedicle screws and an interbody fusion device. No fracture or displacement is identified. There is levoscoliotic curvature and degenerative change at the lower imaged lumbar spine. The SI joints and sacral foramen appear intact. There is minor SI joint sclerosis, greater on left. Patient has a right hip prosthesis. No soft tissue abnormalities are seen. Atherosclerotic plaque is visualized. IMPRESSION: OSTEOPENIA, POSTOPERATIVE AND DEGENERATIVE CHANGES. NO ACUTE BONY INJURY. Impression dictated by: Tomeka Obando M.D. 06/13/2025 12:35 PM Dictation Location: [email or web address] Electronically authenticated by: [id number] Y Date: 06/13/2025 12:35
--- NOTE | 2025-06-13 11:24 | CT_ITS ---
The [address] [address] Patient Name: NORIS ARCE MRN: [id number] date: 1945 Sex: F Assigned Patient Location: ER Current Patient Location: ER Accession/Order Number: [id number] Exam Date: 06/13/2025 11:51 Report Date: 06/13/2025 12:26 At the request of: GUERITA ALEXANDER MD Procedure: CT cervical spine wo con CLINICAL DATA: Patient fell down 2 stairs and hit head on concrete. Clinical data: Patient fell down 2 stairs and hit head on concrete. CT BRAIN WITHOUT CONTRAST: COMPARISON: None TECHNIQUE: Contiguous axial unenhanced images were obtained through the brain. This CT exam was performed using one or more following dose reduction techniques: Automated exposure control, adjustment of the mA and/or kV according to patient size, or use of iterative reconstruction technique. FINDINGS: There is mild cortical atrophy. The ventricles are within normal limits for size and position. Physiologic basal ganglia calcifications are seen. Minimal microvascular changes are noted. There are no additional areas of abnormal attenuation within the brain. There is a small area of increased attenuation with adjacent calcification within the anterior interhemispheric fissure. A small amount of blood is not excluded. No additional suspected hemorrhage, mass effect or extra-axial collections are seen. The calvarium is intact. Minor ethmoid mucosal thickening is visualized, greater on the right. The remaining imaged paranasal sinuses and mastoid air cells are clear. Carotid siphon plaque is present. Scalp swelling and hematoma are visualized at the back of head on the left. CT/CT cervical spine wo con IMPRESSION: AGE-RELATED CHANGES. POSSIBLE TINY ANTERIOR INTERHEMISPHERIC BLEED. FOLLOW-UP IS SUGGESTED TO ASSESS FOR RESOLUTION. CT CERVICAL SPINE WITHOUT CONTRAST WITH 3D RECONSTRUCTIONS: COMPARISON: None TECHNIQUE: Spiral axial unenhanced images were obtained through the cervical spine. Sagittal, coronal and 3D volume-rendered reconstructions were also reviewed. This CT exam was performed using one or more following dose reduction techniques: Automated exposure control, adjustment of the mA and/or kV according to patient size, or use of iterative reconstruction technique. FINDINGS: No acute compression fractures are visualized. A potential bone island is seen at the C1 lateral mass on the left. There is slight anterolisthesis of C7 on T1 and T1 on T2. There is slight disc space narrowing at C5-6 and moderate at C6-7 where there is also endplate spurring and sclerosis. Moderate bilateral facet disease is noted. The atlantoaxial relationship is maintained. No prevertebral soft tissue swelling is seen. Carotid artery plaque is visualized. There are tiny shotty cervical lymph nodes. The upper imaged lungs show no contributory findings. IMPRESSION: DEGENERATIVE CHANGES, GREATEST AT C6-7. NO ACUTE BONY INJURY. Impression dictated by: Tomeka Obando M.D. 06/13/2025 12:26 PM Dictation Location: [employer] Electronically authenticated by: [id number] Y Date: 06/13/2025 12:26
--- NOTE | 2025-06-13 11:25 | ED_ITS ---
HPI HPI - General Adult General Chief complaint: Head Injury Stated complaint: FALL HEAD INJURY LACERATION Time Seen by Provider: 06/13/25 11:20 Source: patient Mode of arrival: Wheelchair History of Present Illness HPI narrative: 80-year-old female presents for an injury to her head. She was carrying a watermelon and 1 arm and was trying to grab the railing for some steps with the other arm and the steps were wet and she fell backwards and hit the back of her head on concrete. She sustained a laceration there. She complains of pain in her left shoulder and left elbow and her tailbone. This happened just before coming into the emergency department and it has been more than 10 years since her last tetanus shot. Related Data Home Medications ?Medication ?Instructions ?Recorded ?Confirmed albuterol sulfate 2.5 mg/3 mL 2.5 mg inhalation Q6H NV N 06/13/25 06/13/25 (0.083 %) solution for nebulization shortness of breat h or wheezing alprazolam 0.5 mg tablet 0.25 mg PO BID 06/13/2505/28 escitalopram oxalate 10 mg tablet 10 mg PO DAILY 06/1306/13/25 fluticasone 250 mcg-salmeterol 50 1 inh inhalation Q12 H 06/13/25 06/13/25 mcg/dose blistr powdr for inhalation hydrocodone 5 mg-acetaminophen 325 1 tab PO BID 06/13/25 mg tablet levothyroxine 150 mcg tablet 150 mcg PO DAILY 06/13/25 06/13/25 torsemide 20 mg tablet 20 mg PO DAILY 06/13/2505/28 trazodone 50 mg tablet 100 mg PO QPM 06/13/2506/13 Allergies Allergy/AdvReac Type Severity Reaction Status Date / Time adhesive tape Allergy Rash Verified 05/09/25 10:36 mannitol (From Reclast) Allergy Unknown Verified 05/09/25 10:36 water for injection,sterile Allergy Unknown Verified 05/09/25 10:36 (From Reclast) zoledronic acid (From Allergy Unknown Verified 05/09/25 10:36 Reclast) Opioid HPI Opioid Management Most Recent Opioid Data: Last Pain Scale 5 Today, 11:40 Review of Systems ROS Narrative A ten point review of systems is negative except as noted above. Exam Narrative Exam Narrative: Nurses note and vital signs reviewed and patient is not hypoxic. General: The patient appears well and in no apparent distress. Patient is resting comfortably on cart. Skin: Warm, dry, no pallor noted. There is no rash noted. Head: Normocephalic, 2 cm laceration present on the occiput. Eye: Normal conjunctiva, no drainage Ears, Nose, Mouth, and Throat: oral mucosa is moist. Nares patent. Cardiovascular: Regular Rate and Rhythm Respiratory: Patient is in no distress, no accessory muscle use, lungs are clear to auscultation, no wheezing, rales or rhonchi Back: Diffuse tenderness in her neck. No tenderness in the thoracic or lumbar spine area. She has tenderness at the coccyx. GI: Soft and nontender Musculoskeletal: Left shoulder has good range of motion though this causes discomfort. She has some swelling on the left elbow which has good range of motion. The left wrist is nontender and radial pulses 2+. Neurological: A&O, normal speech Psychiatric: Cooperative Constitutional Vital Signs, click to edit/add: Last Vital Signs Temp 99.1 F 06/13/25 11:15 Pulse 70 06/13/25 11:15 Resp 18 06/13/25 11:15 BP 140/86 06/13/25 12:51 Pulse Ox 97 06/13/25 11:15 O2 Del Method Room Air 06/13/25 11:15 Course Vital Signs Vital signs: Vital Signs Temperature 99.1 F 06/13/25 11:15 Pulse Rate 70 06/13/25 11:15 Respiratory Rate 18 06/13/25 11:15 Blood Pressure 221/120 H 06/13/25 11:15 Pulse Oximetry 97 06/13/25 11:15 Oxygen Delivery Method Room Air 06/13/25 11:15 Temperature 99.1 F 06/13/25 11:15 Pulse Rate 70 06/13/25 11:15 Respiratory Rate 18 06/13/25 11:15 Blood Pressure 140/86 06/13/25 12:51 Pulse Oximetry 97 06/13/25 11:15 Oxygen Delivery Method Room Air 06/13/25 11:15 Medical Decision Making MDM Narrative Medical decision making narrative: A small anterior interhemispheric bleed is noted on the brain CT. The rest of her radiographs are negative. I contacted [facility] but they do not have bed availability. I spoke to Dr. Mas at [place] emergency department and she accepts the patient. The patient is agreeable and stable for transfer. The patient has a normal neurologic exam, GCS 15. The following procedure was performed by me. Local infiltration was carried out with 1% lidocaine without epinephrine resulting in complete skin anesthesia. The occipital laceration was then prepped with Betadine x 3 and draped sterilely. It was explored for foreign bodies and none were found and then closed with five 3-0 Prolene sutures resulting in good skin reapproximation. Hemostasis was achieved and a circumferential dressing was applied by nursing staff. Differential Diagnosis Differential Diagnosis: Intracranial hemorrhage, laceration, C-spine fracture, shoulder fracture Lab Data Lab results reviewed: Yes I reviewed the patient's lab results Labs: Lab Results 06/13/25 Range/Units 13:55 Sodium 141 (136-145) mmol/L Potassium 4.3 (3.5-5.1) mmol/L Chloride 107 (98-107) mmol/L Carbon Dioxide 28.6 (21.0-32.0) mmol/L Anion Gap 9.7 BUN 11.0 (7.0-18.0) mg/dL Creatinine 0.67 (0.55-1.02) mg/dL Est GFR ( Amer) >60 (>=60 mL/min/1.73m^2) Est GFR (Non-Af Amer) >60 (>=60 mL/min/1.73m^2) BUN/Creatinine Ratio 16.4 Glucose 94 (74-106) mg/dL Calcium 9.3 (8.5-10.1) mg/dL Imaging Data CT scan - head: Radiologist's impression: ITS Impressions Elbow X-Ray 06/13/25 11:23 IMPRESSION: SATISFACTORY APPEARANCE OF SHOULDER PROSTHESIS. NO ACUTE BONY INJURY. LEFT ELBOW - 3 views COMPARISON: None AP, lateral and oblique views were obtained. There is osteopenia. The lateral view slightly rotated. No acute fracture or dislocation is noted. No elbow effusion or focal soft tissue swelling is seen. IMPRESSION: NO ACUTE BONY INJURY. SACRUM AND COCCYX -3 views COMPARISON: Lumbar spine and pelvis 11/16/2019 Lateral as well as AP views in upward and downward projection were obtained. There is osteopenia slightly limits evaluation. There is prior lumbosacral fusion with posterior rods, pedicle screws and an interbody fusion device. No fracture or displacement is identified. There is levoscoliotic curvature and degenerative change at the lower imaged lumbar spine. The SI joints and sacral foramen appear intact. There is minor SI joint sclerosis, greater on left. Patient has a right hip prosthesis. No soft tissue abnormalities are seen. Atherosclerotic plaque is visualized. IMPRESSION: OSTEOPENIA, POSTOPERATIVE AND DEGENERATIVE CHANGES. NO ACUTE BONY INJURY. Impression dictated by: Tomeka Obando M.D. 06/13/2025 12:35 PM Dictation Location: [employer] Electronically authenticated by: [id number] Y Date: 06/13/2025 12:[address] 06/13/25 11:23 IMPRESSION: AGE-RELATED CHANGES. POSSIBLE TINY ANTERIOR INTERHEMISPHERIC BLEED. FOLLOW-UP IS SUGGESTED TO ASSESS FOR RESOLUTION. CT CERVICAL SPINE WITHOUT CONTRAST WITH 3D RECONSTRUCTIONS: COMPARISON: None TECHNIQUE: Spiral axial unenhanced images were obtained through the cervical spine. Sagittal, coronal and 3D volume-rendered reconstructions were also reviewed. This CT exam was performed using one or more following dose reduction techniques: Automated exposure control, adjustment of the mA and/or kV according to patient size, or use of iterative reconstruction technique. FINDINGS: No acute compression fractures are visualized. A potential bone island is seen at the C1 lateral mass on the left. There is slight anterolisthesis of C7 on T1 and T1 on T2. There is slight disc space narrowing at C5-6 and moderate at C6-7 where there is also endplate spurring and sclerosis. Moderate bilateral facet disease is noted. The atlantoaxial relationship is maintained. No prevertebral soft tissue swelling is seen. Carotid artery plaque is visualized. There are tiny shotty cervical lymph nodes. The upper imaged lungs show no contributory findings. IMPRESSION: DEGENERATIVE CHANGES, GREATEST AT C6-7. NO ACUTE BONY INJURY. Impression dictated by: Tomeka Obando M.D. 06/13/2025 12:26 PM Dictation Location: [employer] Electronically authenticated by: [id number] Y Date: 06/13/2025 12:26 Sacrum and Coccyx X-Ray 06/13/25 11:23 IMPRESSION: SATISFACTORY APPEARANCE OF SHOULDER PROSTHESIS. NO ACUTE BONY INJURY. LEFT ELBOW - 3 views COMPARISON: None AP, lateral and oblique views were obtained. There is osteopenia. The lateral view slightly rotated. No acute fracture or dislocation is noted. No elbow effusion or focal soft tissue swelling is seen. IMPRESSION: NO ACUTE BONY INJURY. SACRUM AND COCCYX -3 views COMPARISON: Lumbar spine and pelvis 11/16/2019 Lateral as well as AP views in upward and downward projection were obtained. There is osteopenia slightly limits evaluation. There is prior lumbosacral fusion with posterior rods, pedicle screws and an interbody fusion device. No fracture or displacement is identified. There is levoscoliotic curvature and degenerative change at the lower imaged lumbar spine. The SI joints and sacral foramen appear intact. There is minor SI joint sclerosis, greater on left. Patient has a right hip prosthesis. No soft tissue abnormalities are seen. Atherosclerotic plaque is visualized. IMPRESSION: OSTEOPENIA, POSTOPERATIVE AND DEGENERATIVE CHANGES. NO ACUTE BONY INJURY. Impression dictated by: Tomeka Obando M.D. 06/13/2025 12:35 PM Dictation Location: [employer] Electronically authenticated by: [id number] Y Date: 06/13/2025 12:35 Shoulder X-Ray 06/13/25 11:23 IMPRESSION: SATISFACTORY APPEARANCE OF SHOULDER PROSTHESIS. NO ACUTE BONY INJURY. LEFT ELBOW - 3 views COMPARISON: None AP, lateral and oblique views were obtained. There is osteopenia. The lateral view slightly rotated. No acute fracture or dislocation is noted. No elbow effusion or focal soft tissue swelling is seen. IMPRESSION: NO ACUTE BONY INJURY. SACRUM AND COCCYX -3 views COMPARISON: Lumbar spine and pelvis 11/16/2019 Lateral as well as AP views in upward and downward projection were obtained. There is osteopenia slightly limits evaluation. There is prior lumbosacral fusion with posterior rods, pedicle screws and an interbody fusion device. No fracture or displacement is identified. There is levoscoliotic curvature and degenerative change at the lower imaged lumbar spine. The SI joints and sacral foramen appear intact. There is minor SI joint sclerosis, greater on left. Patient has a right hip prosthesis. No soft tissue abnormalities are seen. Atherosclerotic plaque is visualized. IMPRESSION: OSTEOPENIA, POSTOPERATIVE AND DEGENERATIVE CHANGES. NO ACUTE BONY INJURY. Impression dictated by: Tomeka Obando M.D. 06/13/2025 12:35 PM Dictation Location: [employer] Electronically authenticated by: [id number] Y Date: 06/13/2025 12:[address] 06/13/25 11:24 IMPRESSION: AGE-RELATED CHANGES. POSSIBLE TINY ANTERIOR INTERHEMISPHERIC BLEED. FOLLOW-UP IS SUGGESTED TO ASSESS FOR RESOLUTION. CT CERVICAL SPINE WITHOUT CONTRAST WITH 3D RECONSTRUCTIONS: COMPARISON: None TECHNIQUE: Spiral axial unenhanced images were obtained through the cervical spine. Sagittal, coronal and 3D volume-rendered reconstructions were also reviewed. This CT exam was performed using one or more following dose reduction techniques: Automated exposure control, adjustment of the mA and/or kV according to patient size, or use of iterative reconstruction technique. FINDINGS: No acute compression fractures are visualized. A potential bone island is seen at the C1 lateral mass on the left. There is slight anterolisthesis of C7 on T1 and T1 on T2. There is slight disc space narrowing at C5-6 and moderate at C6-7 where there is also endplate spurring and sclerosis. Moderate bilateral facet disease is noted. The atlantoaxial relationship is maintained. No prevertebral soft tissue swelling is seen. Carotid artery plaque is visualized. There are tiny shotty cervical lymph nodes. The upper imaged lungs show no contributory findings. IMPRESSION: DEGENERATIVE CHANGES, GREATEST AT C6-7. NO ACUTE BONY INJURY. Impression dictated by: Tomeka Obando M.D. 06/13/2025 12:26 PM Dictation Location[facility] Electron[facility] authenticated by: [id number] Y Date: 06/13/2025 12:26 Discharge Plan Discharge Chief Complaint: Head Injury Clinical Impression: Intracranial hemorrhage, Laceration of scalp Patient Disposition: [facility] Time of Disposition Decision: 14:19 Discharge Location: [facility] Condition: Good Mode of Transportation: EMS
[2025-06-13] MEDS: DIPHTH,PERTUSS(ACELL),TET VAC 0.5 ML SYRINGE IM (11:58)
--- NOTE | 2025-06-13 12:25 | PC.NURSE ---
pt head laceration cleansed with soap and water, dry dressing applied with ice pack, pt tolerated well
[2025-06-13] MEDS: LIDOCAINE/EPINEPHRINE/TETRACAINE 3 ML GEL.PF.APP TOPICAL (12:36)
[2025-06-13 12:51] VITALS: BP 140/86
[2025-06-13] MEDS: LIDOCAINE HCL 1% 100 MG/10 ML MDV INJ (13:06)
[2025-06-13 14:15] LABS: Hematocrit 36.6 % (36.0-48.0); Hemoglobin 12.2 g/dL (12.0-16.0); Immature Granulocytes Abs Auto 0.04 10^3/uL (0.00-0.03); Immature Granulocytes Pct Auto 0.5 % (0.0-0.5); Lymphocytes Absolute Auto 2.0 10^3/uL (1.2-3.8); Mean Corpuscular HGB Conc 33.3 g/dL (29.9-35.2); Mean Corpuscular Hemoglobin 29.4 pg (26.7-34.0); Mean Corpuscular Volume 88.2 fL (81.0-99.0); Platelet Count 362 10^3/uL (150-450); Red Blood Count 4.15 10^6/uL (4.20-5.40); White Blood Count 7.9 10^3/uL (4.0-11.0)
[2025-06-13 14:20] LABS: Anion Gap 9.7; Blood Urea Nitrogen 11.0 mg/dL (7.0-18.0); Calcium 9.3 mg/dL (8.5-10.1); Carbon Dioxide 28.6 mmol/L (21.0-32.0); Chloride 107 mmol/L (98-107); Estimated GFR (African America >60 (>=60 mL/min/1.73m^2); Estimated GFR (Non-African Ame >60 (>=60 mL/min/1.73m^2); Glucose 94 mg/dL (74-106); Potassium 4.3 mmol/L (3.5-5.1); Sodium 141 mmol/L (136-145)
[2025-06-13 15:09] VITALS: BP 187/72; PULSE 71; O2SAT 96
--- NOTE | 2025-06-13 15:10 | PC.NURSE ---
[facility] here for pt transport
[2025-06-13] MEDS: MORPHINE SULFATE 2 MG/ML SYRINGE IV (15:15)
--- NOTE | 2025-06-13 15:28 | PC.NURSE ---
called report to Juan C RODRIGEZ Coordinator at [facility]
== END 2025-06-13 15:37 | disposition short-term general hospital (02) ==
PROVIDERS: Emergency Provider Emergency Medicine; PCP Internal Medicine
DX: S06.300A Unspecified focal traumatic brain injury without loss of consciousness, initial encounter (principal); W10.8XXA Fall (on) (from) other stairs and steps, initial encounter; S01.01XA Laceration without foreign body of scalp, initial encounter; M25.512 Pain in left shoulder; M25.522 Pain in left elbow; S39.92XA Unspecified injury of lower back, initial encounter
CPT/HCPCS: 12001; 36415; 70450; 72125; 72220; 73030; 73080; 76376; 80048; 85025; 90471; 90715; 96374; 99285; J2270